=== PATIENT | female | born 1960 | race African-American/Black ===

== ENCOUNTER 2017-02-12 15:17 | Inpatient (IN) | payer MEDICARE, MEDICAID ==
[2017-02-12] VITALS (9 sets, daily range): BP systolic 85–140; BP diastolic 47–79
[~2017-02-12] VITALS: Ht 162.6 cm; Wt 63.5 kg
[~2017-02-12 15:17] MED LIST: CALCIUM CHLORIDE 1,000 MG/10 ML DISP.SYRIN IV ONE; DEXTROSE 50% 25 GM / 50ML DISP.SYRIN. IV ONE; EPINEPHrine SYRINGE 1 MG/10 ML SYRINGE ONE; SODIUM BICARB ADULT 8.4% 50 MEQ/50 ML DISP.SYRIN. ONE
[2017-02-12 15:46] LABS: BASO # 0.1 x10^3/uL (0.0-0.2); BASO % 0 % (0-3); EOS % 0 % (0-3); HEMATOCRIT 37.4 % (36.0-47.0); HEMOGLOBIN 12.3 g/dL (12.0-15.5); LYMPH # 1.1 x10^3/uL (1.0-4.8); LYMPH % 9 % (24-48); MEAN CORPUSCULAR HEMOGLOBIN 33 pg (25-35); MEAN CORPUSCULAR HGB CONC 33 g/dL (31-37); MEAN CORPUSCULAR VOLUME 102 fL (79-100); MONO % 3 % (0-9); NEUT % 88 % (31-73); PLATELET COUNT 212 x10^3/uL (140-400); RED BLOOD COUNT 3.69 x10^6/uL (3.50-5.40); RED CELL DISTRIBUTION WIDTH 13.1 % (11.5-14.5); WHITE BLOOD COUNT 12.7 x10^3/uL (4.0-11.0)
[2017-02-12] MEDS: IV NORMAL SALINE 1000ML BAG 1,000 ML IV SCH ×3 (15:50→19:31)
[2017-02-12 15:57] LABS: BILIRUBIN,URINE NEGATIVE (NEG); GLUCOSE,URINE NEGATIVE (NEG); NITRITE,URINE NEGATIVE (NEG); PH,URINE 5.5; PROTEIN,URINE 30 mg/dL (NEG-TRACE); UROBILINOGEN,URINE 0.2 mg/dL (0.2 mg/dL)
[2017-02-12] MEDS ORDERED: SODIUM BICARB ADULT 8.4% 50 MEQ/50 ML DISP.SYRIN. IV ONE ×2 (16:00→19:30)
[2017-02-12] MEDS ORDERED: DEXTROSE 50% 25 GM / 50ML DISP.SYRIN. IV ONE (16:00)
[2017-02-12] MEDS ORDERED: CALCIUM CHLORIDE 1,000 MG/10 ML DISP.SYRIN IV ONE (16:00)
[2017-02-12 16:03] LABS: BASE EXCESS COOX -15 mmol/L (-3-3); CARBON MONOXIDE 3.1 % (0.0-1.9); HCO3 COOX 16 mmol/L (21-28); METHEMOGLOBIN 0.5 % (0.0-1.9); OXYHEMOGLOBIN 95.3 %; PO2 COOX 493 mmHg (75-108); SAT O2 COOX 99 % (92-99); TOTAL HEMOGLOBIN 11.9 g/dL
--- NOTE | 2017-02-12 16:06 | RAD ---
Single view of the chest 02/12/2017 Indication: Hypoxia Comparison study: April 04, 2013 Findings: There is an endotracheal tube approximately 6 cm above the ernst. There is an enteric tube extending below the diaphragm. The lungs are hyperinflated. Relative apical lucency is noted. No pneumothorax or definitive effusion is seen. Findings could reflect COPD or other obstructive process. There is also diffuse interstitial coarsening, somewhat increased in the interim. Possible opacity infiltrates are seen in the right midlung however overlying EKG leads and other monitoring devices somewhat obscure visualization. Heart size appears to be grossly normal. An acute osseous change is not identified. Impression: 1. Hyperinflation 2. Diffuse interstitial thickening, increased in the interim. Findings could represent an atypical or interstitial pneumonia. Pulmonary edema could also be considered in the appropriate setting. 3. More focal patchy infiltrate in the right midlung appears to be present. Focal pneumonia is not excluded. Recommend radiographic follow-up to ensure resolution and exclude underlying lesion
[2017-02-12 16:08] LABS: BACTERIA,URINE MANY /HPF (0-FEW); SQUAMOUS EPITHELIAL CELL,UR OCC /LPF
[2017-02-12 16:12] LABS: ALBUMIN 2.9 g/dL (3.4-5.0); CALCIUM 9.6 mg/dL (8.5-10.1); DIRECT BILIRUBIN 0.3 mg/dL (0.0-0.2); GFR 69.9; TOTAL BILIRUBIN 0.8 mg/dL (0.2-1.0); TOTAL PROTEIN 6.9 g/dL (6.4-8.2)
[2017-02-12 16:15] LABS: FIO2 COOX 100; PCO2 COOX 62 mmHg (35-46); PH COOX 7.03 (7.35-7.45)
[2017-02-12 16:16] LABS: POTASSIUM 7.2 mmol/L (3.5-5.1)
[2017-02-12] MEDS ORDERED: FUROSEMIDE 40 MG/4 ML VIAL. IVP ONE (16:30)
--- NOTE | 2017-02-12 16:33 | EKG ---
[facility] [address] [place] [address] Test Date: 2017-02-12 Test Time: 15:39:58 Pat Name: LELAND ASKEW Department: Room: Gender: F [employer]: : [id number] Requested By: TRAM SMITH Order Number: [id number] Reading MD: Yoli Diez Measurements Intervals [place] Rate: 109 P: -103 AK: 234 QRS: -97 QRSD: 80 T: 78 QT: 294 QTc: 397 Interpretive Statements PROBABLE SINUS RHYTHM PROLONGED AK INTERVAL PROBABLE ST ELEVATION IN INFERIOR LEADS LOW LIMB LEAD VOLTAGE T ABNORMALITY IN HIGH LATERAL LEADS Electronically Signed On 02-15-2017 10:05:54 CDT by Yoli Diez
[2017-02-12 16:55] LABS: % BASOS 1 % (0-3)
[2017-02-12 16:56] LABS: PLT ESTIMATE ADEQUATE (ADEQUATE)
--- NOTE | 2017-02-12 16:56 | PHYS DOC ---
Adult General Chief Complaint Chief Complaint: CPR/FULL ARREST HPI HPI Patient is a 56 year old female with a history of schizophrenia and anorexia brought in by EMS after a code. The patient was found down in her room at the [place] [facility]. Last known well was not known. There is no other history available. Per EMS, she was found in asystole. ACLS was done with good CPR and she did have return of pulses at one time but had lost pulses on arrival to the ED. Review of Systems Review of Systems Unable to obtain review of systems due to the patient's critical condition Current Medications Current Medications Current Medications Medications (Trade) Dose Ordered Sig/Bryce Start Time Stop Time Status Last Admin Dose Admin Calcium Chloride 1,000 mg 1X ONCE 02/12/17 16:00 02/12/17 16:35 DC 02/12/17 15:35 1,000 MG Dextrose (Dextrose 50%-Water Syringe) 25 gm 1X ONCE 02/12/17 16:00 02/12/17 16:35 DC 02/12/17 15:33 25 GM Furosemide (Lasix) 40 mg 1X ONCE 02/12/17 16:30 02/12/17 16:35 DC 02/12/17 16:42 40 MG Sodium Bicarbonate 50 meq 1X ONCE 02/12/17 16:00 02/12/17 16:35 DC 02/12/17 15:35 50 MEQ Allergies Allergies Allergies Coded Allergies Type Severity Reaction Last Updated Verified divalproex sodium Allergy Intermediate Unknown 02/12/17 Yes Physical Exam Physical Exam Constitutional: GCS 3, being mechanically ventilated, no evidence of trauma noted HENT: Normocephalic, atraumatic, bilateral external ears normal, oropharynx with a large amount of emesis, nose normal. [] Eyes: conjunctiva normal, no discharge. [] Neck: Trachea midline, no masses Cardiovascular:Heart rate regular rhythm, no murmur [] Lungs & Thorax: Bilateral breath sounds present with bagging Abdomen: Moderately distended, no pulsatile mass Skin: Warm, dry, no erythema, no rash. [] Extremities: No tenderness, no cyanosis, no clubbing, ROM intact, no edema. [] Neurologic: GCS 3 on arrival Current Patient Data Vital Signs Vital Signs Date Time Temp Pulse Resp B/P (MAP) Pulse Ox O2 Delivery O2 Flow Rate FiO2 02/12/17 16:38 87 25 80/43 (55) 99 02/12/17 15:45 Ventilator Lab Values Laboratory Tests Test 02/12/17 15:24 02/12/17 15:45 02/12/17 15:49 02/12/17 15:50 White Blood Count 12.7 x10^3/uL (4.0-11.0) H Red Blood Count 3.69 x10^6/uL (3.50-5.40) Hemoglobin 12.3 g/dL (12.0-15.5) Hematocrit 37.4 % (36.0-47.0) Mean Corpuscular Volume 102 fL (79-100) H Mean Corpuscular Hemoglobin 33 pg (25-35) Mean Corpuscular Hemoglobin Concent 33 g/dL (31-37) Red Cell Distribution Width 13.1 % (11.5-14.5) Platelet Count 212 x10^3/uL (140-400) Neutrophils (%) (Auto) 88 % (31-73) H Lymphocytes (%) (Auto) 9 % (24-48) L Monocytes (%) (Auto) 3 % (0-9) Eosinophils (%) (Auto) 0 % (0-3) Basophils (%) (Auto) 0 % (0-3) Neutrophils # (Auto) 11.1 x10^3uL (1.8-7.7) H Lymphocytes # (Auto) 1.1 x10^3/uL (1.0-4.8) Monocytes # (Auto) 0.4 x10^3/uL (0.0-1.1) Eosinophils # (Auto) 0.0 x10^3/uL (0.0-0.7) Basophils # (Auto) 0.1 x10^3/uL (0.0-0.2) Segmented Neutrophils % 37 % (35-66) Band Neutrophils % 44 % (0-9) H Lymphocytes % 4 % (24-48) L Atypical Lymphocytes % (Manual) 5 % (0-0) H Monocytes % 5 % (0-10) Basophils % 1 % (0-3) Metamyelocytes % 4 % (0-0) H Toxic Granulation Present Dohle Bodies Present Platelet Estimate Adequate (ADEQUATE) Large Platelets Present Polychromasia Slight Poikilocytosis Slight Anisocytosis Slight Macrocytosis Slight Target Cells Tear Drop Cells Occ Ovalocytes Occ Crenated Cell Present Sodium Level 117 mmol/L (136-145) *L Potassium Level 7.2 mmol/L (3.5-5.1) *H Chloride Level 81 mmol/L (98-107) L Carbon Dioxide Level 23 mmol/L (21-32) Anion Gap 13 (6-14) Blood Urea Nitrogen 15 mg/dL (7-20) Creatinine 1.0 mg/dL (0.6-1.0) Estimated GFR (Cockcroft-Gault) 69.9 Glucose Level 20 mg/dL (70-99) *L Lactic Acid Level 12.9 mmol/L (0.4-2.0) *H Calcium Level 9.6 mg/dL (8.5-10.1) Total Bilirubin 0.8 mg/dL (0.2-1.0) Direct Bilirubin 0.3 mg/dL (0.0-0.2) H Aspartate Amino Transferase (AST) 554 U/L (15-37) H Alanine Aminotransferase (ALT) 305 U/L (14-59) H Alkaline Phosphatase 95 U/L (46-116) POC Troponin I 0.78 ng/ml (<0.08) Troponin I Quantitative 1.352 ng/mL (0.000-0.055) MI-Zkf-S-Type Natriuretic Peptide 89878 pg/mL (0-124) H Total Protein 6.9 g/dL (6.4-8.2) Albumin 2.9 g/dL (3.4-5.0) L Lipase 43 U/L (73-393) L Glucose (Fingerstick) 209 mg/dL (70-99) H Urine Collection Type Unknown Urine Color Yellow Urine Clarity Cloudy Urine pH 5.5 Urine Specific [place] 1.010 Urine Protein 30 mg/dL (NEG-TRACE) Urine Glucose (UA) Negative mg/dL (NEG) Urine Ketones (Stick) Negative mg/dL (NEG) Urine Blood Moderate (NEG) Urine Nitrite Negative (NEG) Urine Bilirubin Negative (NEG) Urine Urobilinogen Dipstick 0.2 mg/dL (0.2 mg/dL) Urine Leukocyte Esterase Trace (NEG) Urine RBC 1-2 /HPF (0-2) Urine WBC 1-4 /HPF (0-4) Urine Squamous Epithelial Cells Occ /LPF Urine Bacteria Many /HPF (0-FEW) Urine Hyaline Casts Occasional /HPF Urine Opiates Screen Neg (NEG) Urine Methadone Screen Neg (NEG) Urine Barbiturates Neg (NEG) Urine Phencyclidine Screen Neg (NEG) Urine Amphetamine/Methamphetamine Neg (NEG) Urine Benzodiazepines Screen Neg (NEG) Urine Cocaine Screen Neg (NEG) Urine Cannabinoids Screen Neg (NEG) Urine Ethyl Alcohol Neg (NEG) O2 Saturation 99 % (92-99) Arterial Blood pH 7.03 (7.35-7.45) *L Arterial Blood pCO2 at Patient Temp 62 mmHg (35-46) *H Arterial Blood pO2 at Patient Temp 493 mmHg (75-108) H Arterial Blood HCO3 16 mmol/L (21-28) L Arterial Blood Base Excess -15 mmol/L (-3-3) L Oxyhemoglobin 95.3 % Methemoglobin 0.5 % (0.0-1.9) Carbon Monoxide, Quantitative 3.1 % (0.0-1.9) H FiO2 100 Laboratory Tests 02/12/17 15:24 Laboratory Tests 02/12/17 15:24 EKG EKG 12-lead EKG #1 read by me. Sinus tachycardia. Heart rate 109. Abnormal, wide QRS , EKG is difficult to read. Could possibly be a STEMI pattern or could be hyperkalemia or could be an abnormal interventricular conduction delay pattern. 1539 12-lead EKG #2 read by me. Sinus rhythm. Heart rate 89. The QRS widening is improved. There are no peaked T waves. There are no acute ST or T wave changes indicative of ischemia or infarction. No STEMI. 1638[] Radiology/Procedures Radiology/Procedures One view portable chest x-ray read by the radiologist. ET tube is 6 cm above the ernst with good aeration of both lungs and no acute pulmonary findings.[] Procedure: Intubation by me Using a #3 curved blade, the patient's cords were visualized and she was intubated with a 7.0 ET tube. ET tube was visualized going through the cords, positive color change on the end-tidal CO2 monitor, good bilateral equal breath sounds after intubation, improvement in the patient's color, and pulse oximetry in the high 90s to 100% range confirmed intubation. Course & Med Decision Making Course & Med Decision Making Pertinent Labs and Imaging studies reviewed. (See chart for details) 56-year-old female who we do not have any records on presents in a full CODE BLUE by EMS. She presented with a intraosseous access, a LMA airway, we obtained IV access and switched her to endotracheal intubation. Along with these interventions, the patient did return spontaneous circulation and kept her pulse. Her color improved. She had a lot of emesis and probably aspirated. An orogastric tube was placed and bloody gastric contents were suctioned, although it does not appear to be jessica blood, it is very liquid but appears to have dark blood in it. Initial report per EMS was of a prehospital Accu-Chek in the 140 range. However, i-STAT labs immediately on arrival were concerning for potassium 6.9 and glucose less than 20. She was treated with D50, bicarbonate, and calcium. Her hyperkalemia and her hypotension were treated with normal saline boluses. Labs were consistent with these findings of hyperkalemia, hyponatremia, and hypoglycemia. Based on the patient's med list, diagnoses, and a relatively normal creatinine of 1.3, I cannot explain these lab abnormalities. The potassium might be from her prolonged time of coding, although that would not explain her hyponatremia and her hypoglycemia. I do believe the Shana meal was true because her EKG was markedly abnormal and it did normalize after treating. Patient did have some movement of her extremities and some spontaneous breaths and swallowing but she did not have improvement of her mentation after return of spontaneous circulation, so we discussed hypothermia protocol for this patient. It was initiated by nursing staff. Patient actually did present with a rectal temp of 95 which actually had gone down to 90 after her code in the ED. I 'm not sure why she was so hypothermic. RT managed the patient's vent settings and her oxygenation was never an issue. She was markedly acidotic which was mostly metabolic. Lactic acid is elevated. I attribute this to her lengthy code. She was treated with IV fluids and had very little urine output while in the ED. I discussed the case with Dr. Lockhart, hospitalist. She will admit the patient. She came to the ED to see the patient. I wrote bridge orders. Critical care time 60 minutes exclusive of separately billable procedures [] Dragon Disclaimer Dragon Disclaimer This electronic medical record was generated, in whole or in part, using a voice recognition dictation system. Departure Departure Impression: Primary Impression: Cardiac arrest Additional Impressions: Hypoglycemia Hyperkalemia Hyponatremia Elevated troponin Disposition: 09 ADMITTED INPATIENT Admitting Physician: Kameron Lockhart Condition: CRITICAL Referrals: UNKNOWN PCP NAME (PCP) Problem Qualifiers MATEO ADAMES MD Feb 12, 2017 16:56
[2017-02-12 16:57] LABS: ANISOCYTOSIS SLIGHT; POIKILOCYTOSIS SLIGHT; POLYCHROMASIA SLIGHT
[2017-02-12 16:58] LABS: OVALOCYTES OCC; TEAR DROP CELLS OCC; TOXIC GRANULATION PRESENT
[2017-02-12] MEDS ORDERED: VECURONIUM BOLUS 10 MG VIAL. IV PRN (17:00)
[2017-02-12] MEDS ORDERED: PROPOFOL 100 ML IV PRN (17:00)
[2017-02-12] MEDS ORDERED: MEPERIDINE PF 25 MG/ML VIAL. IV PRN (17:00)
[2017-02-12] MEDS ORDERED: 0.9 % SODIUM CHLORIDE 10 ML DISP.SYRIN. IV PRN (17:00)
[2017-02-12] MEDS ORDERED: fentaNYL PF VIAL 100 MCG/2 ML VIAL IV PRN (17:00)
[2017-02-12 17:01] LABS: CRENATED RBC PRESENT
[2017-02-12] MEDS ORDERED: IV NORMAL SALINE 500ML BAG 500 ML IV ONE ×2 (17:15)
[2017-02-12] MEDS ORDERED: FAMOTIDINE 20 MG TABLET. PO ONE (17:30)
[2017-02-12 17:33] LABS: CALCIUM 8.9 mg/dL (8.5-10.1); CREATININE 1.2 mg/dL (0.6-1.0); GFR 56.6; POTASSIUM 5.7 mmol/L (3.5-5.1)
--- NOTE | 2017-02-12 17:41 | PDOC1 ---
History and Physical Date of Admission Date of Admission 02/12/17 Identification/Chief Complaint Chief Complaint cardiac arrest Problems: Source Source: Chart review History of Present Illness History of Present Illness 56yo F,with h/o COPD, anorexia, schizophreniA, was sent from SNF for cardiac arrest. Pt is currently intubated, all history recived from ERP who also has very limited info. per ERP, last time SNF saw pt ok was about noon time, then possible 2 hours later, found pt unresponsive. EMS was called , CPR started, was found asystole, epi was given x3, code possible lasted 20min? but DR. Cleray also said when pt arrived here about 3pm, pt was still on CPR. Pt eventually got pulse back, moves ext a little bit, not woke up. was intubated now. ERP mentioned pt has some secretion through ET tube also some dark emesis from NGT. She has horrible labs, LA 12, Na 117, K 7, Glucose 20 (no DM), T rectum 90. when i saw pt in the ER, BP was 70s. Past Medical History Past Medical History copd Past Surgical History Past Surgical History cannot obtained Social History Smoke: No ALCOHOL: none Drugs: None Current Problem List Problem List Problems Medical Problems: (1) Cardiac arrest Status: Acute (2) Elevated troponin Status: Acute (3) Hyperkalemia Status: Acute (4) Hypoglycemia Status: Acute (5) Hyponatremia Status: Acute Current Medications Current Medications Current Medications Medications (Trade) Dose Ordered Sig/Bryce Start Time Stop Time Status Last Admin Dose Admin Acetaminophen (Acetaminophen Supp) 650 mg PRN Q6HRS PRN 02/13/17 17:00 Acetaminophen (Tylenol) 650 mg PRN Q6HRS PRN 02/13/17 17:00 Aspirin (Aspirin) 300 mg DAILY 02/13/17 09:00 Calcium Chloride 1,000 mg 1X ONCE 02/12/17 16:00 02/12/17 16:35 DC 02/12/17 15:35 1,000 MG Dextrose (Dextrose 50%-Water Syringe) 25 gm 1X ONCE 02/12/17 16:00 02/12/17 16:35 DC 02/12/17 15:33 25 GM Famotidine (Pepcid) 20 mg BID 02/12/17 21:00 Fentanyl Citrate 30 ml @ 2.5 mls/hr CONT PRN PRN 02/12/17 17:00 Fentanyl Citrate (Fentanyl 2ml Vial) 25 mcg PRN Q30MIN PRN 02/12/17 17:00 Furosemide (Lasix) 40 mg 1X ONCE 02/12/17 16:30 02/12/17 16:35 DC 02/12/17 16:42 40 MG Info 1 ea DAILY PRN 02/14/17 17:00 Lorazepam (Ativan) 1 mg PRN Q30MIN PRN 02/12/17 17:00 Meperidine HCl (Demerol) 12.5 mg PRN Q30MIN PRN 02/12/17 17:00 Multi-Ingred Cream/Lotion/Oil/ Oint (Artificial Tears Eye Oint) 1 silvestre PRN Q6HRS PRN 02/12/17 17:00 Propofol 100 ml @ 0 mls/hr CONT PRN 02/12/17 17:00 Sodium Bicarbonate 50 meq 1X ONCE 02/12/17 16:00 02/12/17 16:35 DC 02/12/17 15:35 50 MEQ Sodium Chloride 500 ml @ 500 mls/hr 1X ONCE 02/12/17 17:15 02/12/17 18:14 02/12/17 16:50 500 MLS/HR Sodium Chloride (Normal Saline Flush) 3 ml QSHIFT PRN 02/12/17 17:00 Vecuronium [place] (Norcuron Bolus) DOSE AT 0.1 mg/kg PRN Q30MIN PRN 02/12/17 17:00 Allergies Allergies Allergies Coded Allergies Type Severity Reaction Last Updated Verified divalproex sodium Allergy Intermediate Unknown 02/12/17 Yes ROS Review of System CONSTITUTIONAL: No fever or chills EYES: No recent changes SKIN: No rash or itching CARDIOVASCULAR: No chest pain, syncope, palpitations, or edema RESPIRATORY: No SOB or cough GASTROINTESTINAL: No nausea, vomiting or abdominal pain NEUROLOGICAL: No headaches or weakness ENDOCRINE: No cold or heat intolerance GENITOURINARY: No urgency or frequency of urination MUSCULOSKELETAL: No back pain or joint pain LYMPHATICS: No enlarged lymph nodes PSYCHIATRIC: No anxiety or depression Physical Exam Physical Exam GEN.: intubated, unresponsive HEENT: Head is normocephalic, atraumatic NECK: Supple. LUNGS: bl wheezing HEART: RRR, S1, S2 present. Peripheral pulses intact ABDOMEN: Soft, nontender. Positive bowel sounds. middle abd has a 10cm sx scar. EXTREMITIES: Without any cyanosis. NEUROLOGIC: Normal speech, normal tone PSYCHIATRIC: Normal affect, normal mood. SKIN: No ulcerations Vitals Vitals Vital Signs Date Time Temp Pulse Resp B/P (MAP) Pulse Ox O2 Delivery O2 Flow Rate FiO2 02/12/17 15:45 100 Ventilator Labs Labs Laboratory Tests Test 02/12/17 15:24 02/12/17 15:45 02/12/17 15:49 02/12/17 15:50 White Blood Count 12.7 x10^3/uL (4.0-11.0) Red Blood Count 3.69 x10^6/uL (3.50-5.40) Hemoglobin 12.3 g/dL (12.0-15.5) Hematocrit 37.4 % (36.0-47.0) Mean Corpuscular Volume 102 fL (79-100) Mean Corpuscular Hemoglobin 33 pg (25-35) Mean Corpuscular Hemoglobin Concent 33 g/dL (31-37) Red Cell Distribution Width 13.1 % (11.5-14.5) Platelet Count 212 x10^3/uL (140-400) Neutrophils (%) (Auto) 88 % (31-73) Lymphocytes (%) (Auto) 9 % (24-48) Monocytes (%) (Auto) 3 % (0-9) Eosinophils (%) (Auto) 0 % (0-3) Basophils (%) (Auto) 0 % (0-3) Neutrophils # (Auto) 11.1 x10^3uL (1.8-7.7) Lymphocytes # (Auto) 1.1 x10^3/uL (1.0-4.8) Monocytes # (Auto) 0.4 x10^3/uL (0.0-1.1) Eosinophils # (Auto) 0.0 x10^3/uL (0.0-0.7) Basophils # (Auto) 0.1 x10^3/uL (0.0-0.2) Sodium Level 117 mmol/L (136-145) Potassium Level 7.2 mmol/L (3.5-5.1) Chloride Level 81 mmol/L (98-107) Carbon Dioxide Level 23 mmol/L (21-32) Anion Gap 13 (6-14) Blood Urea Nitrogen 15 mg/dL (7-20) Creatinine 1.0 mg/dL (0.6-1.0) Estimated GFR (Cockcroft-Gault) 69.9 Glucose Level 20 mg/dL (70-99) Lactic Acid Level 12.9 mmol/L (0.4-2.0) Calcium Level 9.6 mg/dL (8.5-10.1) Total Bilirubin 0.8 mg/dL (0.2-1.0) Direct Bilirubin 0.3 mg/dL (0.0-0.2) Aspartate Amino Transf (AST/SGOT) 554 U/L (15-37) Alanine Aminotransferase (ALT/SGPT) 305 U/L (14-59) Alkaline Phosphatase 95 U/L (46-116) Bedside Troponin I 0.78 ng/ml (<0.08) Troponin I Quantitative 1.352 ng/mL (0.000-0.055) UY-Hlv-S-Type Natriuretic Peptide 60644 pg/mL (0-124) Total Protein 6.9 g/dL (6.4-8.2) Albumin 2.9 g/dL (3.4-5.0) Lipase 43 U/L (73-393) Glucose (Fingerstick) 209 mg/dL (70-99) Urine Collection Type Unknown Urine Color Yellow Urine Clarity Cloudy Urine pH 5.5 Urine Specific [place] 1.010 Urine Protein 30 mg/dL (NEG-TRACE) Urine Glucose (UA) Negative mg/dL (NEG) Urine Ketones (Stick) Negative mg/dL (NEG) Urine Blood Moderate (NEG) Urine Nitrite Negative (NEG) Urine Bilirubin Negative (NEG) Urine Urobilinogen Dipstick 0.2 mg/dL (0.2 mg/dL) Urine Leukocyte Esterase Trace (NEG) Urine RBC 1-2 /HPF (0-2) Urine WBC 1-4 /HPF (0-4) Urine Squamous Epithelial Cells Occ /LPF Urine Bacteria Many /HPF (0-FEW) Urine Hyaline Casts Occasional /HPF O2 Saturation 99 % (92-99) Arterial Blood pH 7.03 (7.35-7.45) Arterial Blood pCO2 at Patient Temp 62 mmHg (35-46) Arterial Blood pO2 at Patient Temp 493 mmHg (75-108) Arterial Blood HCO3 16 mmol/L (21-28) Arterial Blood Base Excess -15 mmol/L (-3-3) Oxyhemoglobin 95.3 % Methemoglobin 0.5 % (0.0-1.9) Carbon Monoxide, Quantitative 3.1 % (0.0-1.9) FiO2 100 Laboratory Tests Test 02/12/17 15:24 02/12/17 15:45 02/12/17 15:49 02/12/17 15:50 White Blood Count 12.7 x10^3/uL (4.0-11.0) Red Blood Count 3.69 x10^6/uL (3.50-5.40) Hemoglobin 12.3 g/dL (12.0-15.5) Hematocrit 37.4 % (36.0-47.0) Mean Corpuscular Volume 102 fL (79-100) Mean Corpuscular Hemoglobin 33 pg (25-35) Mean Corpuscular Hemoglobin Concent 33 g/dL (31-37) Red Cell Distribution Width 13.1 % (11.5-14.5) Platelet Count 212 x10^3/uL (140-400) Neutrophils (%) (Auto) 88 % (31-73) Lymphocytes (%) (Auto) 9 % (24-48) Monocytes (%) (Auto) 3 % (0-9) Eosinophils (%) (Auto) 0 % (0-3) Basophils (%) (Auto) 0 % (0-3) Neutrophils # (Auto) 11.1 x10^3uL (1.8-7.7) Lymphocytes # (Auto) 1.1 x10^3/uL (1.0-4.8) Monocytes # (Auto) 0.4 x10^3/uL (0.0-1.1) Eosinophils # (Auto) 0.0 x10^3/uL (0.0-0.7) Basophils # (Auto) 0.1 x10^3/uL (0.0-0.2) Sodium Level 117 mmol/L (136-145) Potassium Level 7.2 mmol/L (3.5-5.1) Chloride Level 81 mmol/L (98-107) Carbon Dioxide Level 23 mmol/L (21-32) Anion Gap 13 (6-14) Blood Urea Nitrogen 15 mg/dL (7-20) Creatinine 1.0 mg/dL (0.6-1.0) Estimated GFR (Cockcroft-Gault) 69.9 Glucose Level 20 mg/dL (70-99) Lactic Acid Level 12.9 mmol/L (0.4-2.0) Calcium Level 9.6 mg/dL (8.5-10.1) Total Bilirubin 0.8 mg/dL (0.2-1.0) Direct Bilirubin 0.3 mg/dL (0.0-0.2) Aspartate Amino Transf (AST/SGOT) 554 U/L (15-37) Alanine Aminotransferase (ALT/SGPT) 305 U/L (14-59) Alkaline Phosphatase 95 U/L (46-116) Bedside Troponin I 0.78 ng/ml (<0.08) Troponin I Quantitative 1.352 ng/mL (0.000-0.055) EN-Pai-R-Type Natriuretic Peptide 86741 pg/mL (0-124) Total Protein 6.9 g/dL (6.4-8.2) Albumin 2.9 g/dL (3.4-5.0) Lipase 43 U/L (73-393) Glucose (Fingerstick) 209 mg/dL (70-99) Urine Collection Type Unknown Urine Color Yellow Urine Clarity Cloudy Urine pH 5.5 Urine Specific [place] 1.010 Urine Protein 30 mg/dL (NEG-TRACE) Urine Glucose (UA) Negative mg/dL (NEG) Urine Ketones (Stick) Negative mg/dL (NEG) Urine Blood Moderate (NEG) Urine Nitrite Negative (NEG) Urine Bilirubin Negative (NEG) Urine Urobilinogen Dipstick 0.2 mg/dL (0.2 mg/dL) Urine Leukocyte Esterase Trace (NEG) Urine RBC 1-2 /HPF (0-2) Urine WBC 1-4 /HPF (0-4) Urine Squamous Epithelial Cells Occ /LPF Urine Bacteria Many /HPF (0-FEW) Urine Hyaline Casts Occasional /HPF O2 Saturation 99 % (92-99) Arterial Blood pH 7.03 (7.35-7.45) Arterial Blood pCO2 at Patient Temp 62 mmHg (35-46) Arterial Blood pO2 at Patient Temp 493 mmHg (75-108) Arterial Blood HCO3 16 mmol/L (21-28) Arterial Blood Base Excess -15 mmol/L (-3-3) Oxyhemoglobin 95.3 % Methemoglobin 0.5 % (0.0-1.9) Carbon Monoxide, Quantitative 3.1 % (0.0-1.9) FiO2 100 VTE Prophylaxis Ordered VTE Prophylaxis Devices: Yes VTE Pharmacological Prophylaxi: No Assessment/Plan Assessment/Plan cardiac arrest, not clear for how long, asystole Hypoglycemia Hyperkalemia Hyponatremia Elevated troponin with cardiac arrest acute hypoxic and hypercapnic resp failure with cardiac arrest COPD from snf anorexia schizophrenia lactate acidosis elevated transminitis mild malnutrition AMS, metabolic encephalopathy hypothermia leukocytosis, likely reactive + UA plan: ICU care, monitor urine output, keep >0.5cc/h monitor MAP, keep >65, use pressor if needed renal, pulm, card consult cycle CE, Echo, tsh, cortisol .add solumedrol 100mg tid for now labs q4h got some meds for high K in ER, repeated labs pending ivf npo gi ppx some gib, also not sure how long cardiac arrest, not a good candidate for hypothermia protocol try to get family very poor prognosis critical care 40min HARRISON ALEXANDER MD Feb 12, 2017 17:41
[2017-02-12 17:43] LABS: PCO2 ABG 59 mmHg (35-46); PH ABG 7.11 (7.35-7.45)
[2017-02-12 17:44] LABS: FIO2 ABG 60; HCO3 ABG 18 mmol/L (21-28); PO2 ABG 199 mmHg (75-108); SAT O2 ABG 99 % (92-99)
[2017-02-12] MEDS ORDERED: IV NORMAL SALINE 1000ML BAG 1,000 ML IV ONE (18:15)
[2017-02-12 18:45] LABS: BARBITURATES NEG (NEG); BENZODIAZEPINES NEG (NEG); CANNABINOIDS NEG (NEG); COCAINE NEG (NEG); METHADONE NEG (NEG); OPIATES NEG (NEG); PHENCYCLIDINE NEG (NEG)
[2017-02-12] MEDS ORDERED: PIP/TAZO PER PHARMACY MC PRN (19:15)
[2017-02-12] MEDS ORDERED: NOREPINEPHRIN PREMIX 250 ML IV ONE (19:25)
[2017-02-12] MEDS: NOREPINEPHRIN PREMIX 250 ML IV PRN (19:30)
[2017-02-12] MEDS ORDERED: VANCOMYCIN 1 GM in IV NORMAL SALINE 250ML 250 ML IV ONE (19:30)
[2017-02-12 19:46] LABS: HEMATOCRIT 33.5 % (36.0-47.0); HEMOGLOBIN 11.8 g/dL (12.0-15.5); RED BLOOD COUNT 3.46 x10^6/uL (3.50-5.40); RED CELL DISTRIBUTION WIDTH 13.9 % (11.5-14.5); WHITE BLOOD COUNT 14.8 x10^3/uL (4.0-11.0)
[2017-02-12] MEDS: ACETAMINOPHEN 650 MG/20.3 ML SOLUTION. NG SCH ×2 (19:57→23:52)
[2017-02-12] MEDS: PIPERACILLIN/TAZOBACTAM 3.375 GM in IV NORMAL SALINE 50ML 50 ML IV SCH ×2 (19:58→23:52)
[2017-02-12] MEDS: methylPREDNISolone SOD SUCC PF 40 MG/ML VIAL. IV SCH (19:59)
[2017-02-12 20:02] LABS: MAGNESIUM 2.1 mg/dL (1.8-2.4); PHOSPHORUS 6.7 mg/dL (2.6-4.7)
[2017-02-12 20:09] LABS: INR 2.5 (0.8-1.1); PROTHROMBIN TIME PATIENT 25.3 SEC (11.7-14.0)
[2017-02-12] MEDS: MIDAZOLAM PREMIX 100 ML IV PRN (20:20)
[2017-02-12] MEDS: VANCOMYCIN PER PHARMACY MC PRN (20:23)
[2017-02-12] MEDS ORDERED: MULT1TAB52 PO (21:02)
[2017-02-12] MEDS ORDERED: IBUP-1027 PO (21:02)
[2017-02-12] MEDS ORDERED: IPRA3AMP NEB ×2 (21:02)
[2017-02-12] MEDS ORDERED: LURA20TA PO (21:02)
[2017-02-12] MEDS ORDERED: ACET325C PO (21:02)
[2017-02-12] MEDS ORDERED: CHOL2000 PO (21:02)
[2017-02-12] MEDS ORDERED: ACET325T9 PO (21:02)
[2017-02-12] MEDS ORDERED: OMEG1CAP2 PO (21:02)
[2017-02-12] MEDS ORDERED: CALC500T PO (21:02)
[2017-02-12] MEDS ORDERED: OXYB10TA PO (21:02)
[2017-02-12] MEDS ORDERED: LORA0.5T PO (21:02)
[2017-02-12] MEDS ORDERED: LURA60TA PO (21:02)
[2017-02-12] MEDS ORDERED: GABA-587 PO (21:02)
[2017-02-12] MEDS ORDERED: MIRT15TA PO (21:02)
[2017-02-12] MEDS ORDERED: LORA1TAB PO ×2 (21:02)
[2017-02-12] MEDS ORDERED: NICO4GUM42 BC (21:02)
[2017-02-12] MEDS ORDERED: [UNRECOGNIZED DRUG - CODE] MM (21:02)
[2017-02-12] MEDS ORDERED: MAGN400O7 PO (21:02)
[2017-02-12] MEDS ORDERED: FLUT1DIS IH (21:02)
[2017-02-12 21:40] LABS: CALCIUM 8.3 mg/dL (8.5-10.1); POTASSIUM 5.7 mmol/L (3.5-5.1)
[2017-02-12 21:46] LABS: CREATININE 1.2 mg/dL (0.6-1.0); GFR 56.6
--- NOTE | 2017-02-12 22:23 | RAD ---
CT HEAD INDICATION: status post code, intubated, no priors COMPARISON: None Available. TECHNIQUE: 5 mm contiguous axial images were obtained from the skull base to the vertex. Exposure: One or more of the following individualized dose reduction techniques were utilized for this examination: 1. Automated exposure control 2. Adjustment of the mA and/or kV according to patient size 3. Use of iterative reconstruction technique FINDINGS: Mild bilateral periventricular white matter hypodensities likely chronic small vessel ischemic disease. No evidence of acute intracranial hemorrhage. No extra-axial fluid collections. No mass effect or midline shift. Ventricular size is appropriate. Basal cisterns are patent. No fractures identified.Brumfield-white differentiation is preserved.Globes and orbits are within normal limits. Moderate mucosal thickening with air-fluid levels identified in the bilateral ethmoidal sinuses and sphenoid sinuses. There is moderate mucosal thickening identified in the bilateral maxillary sinuses likely sinus disease. IMPRESSION: 1. No acute intracranial findings. 2. Sinus disease. Electronically signed by: Fitz Escalona MD (02/12/2017 10:19 PM) [facility]
[2017-02-13] VITALS (17 sets, daily range): BP systolic 98–166; BP diastolic 56–90
[2017-02-13 00:20] LABS: CALCIUM 8.3 mg/dL (8.5-10.1); CREATININE 1.2 mg/dL (0.6-1.0); GFR 56.6; POTASSIUM 4.3 mmol/L (3.5-5.1)
[2017-02-13 00:25] LABS: MAGNESIUM 1.8 mg/dL (1.8-2.4); PHOSPHORUS 3.7 mg/dL (2.6-4.7)
--- NOTE | 2017-02-13 01:52 | ACF ---
Admission Forms Criteria INTENSIVE CARE UNIT ADMISSION Intensive Care Admission Guidelines ( [place]/check or initial the applicable condition/criteria) Admission may be indicated when need is demonstrated by 1 or more of the following:(1)(2)(3)(4)(5)(6)(7)(8)(9)(10)(11) I. Vital sign abnormalities, including 1 or more of the following: a) Systolic arterial pressure less than 90 mm Hg, or 20 mm Hg below patient's usual pressure in adult or child 10 years or older b) Systolic arterial blood pressure less than 70 mm Hg in infant (1 month to 1 year of age), or less than the sum of 70 mm Hg plus twice the patient's age in child 2 to 10 years of age(12) c) Diastolic arterial pressure greater than 120 mm Hg d) Mean arterial pressure less than 70 mm Hg in adult[A] e) Mean arterial pressure less than the sum of 40 mm Hg plus 1.5 times patient' s age in child or adolescent[A](12) f) Pulse less than 40 or greater than 140 beats per minute in adult, or in adolescent 16 years or older g) Pulse less than 90 or greater than 160 beats per minute in infant younger than 1 year(7) h) Pulse less than 70 or greater than 150 beats per minute in child 1 to 15 years of age(7) i) Respiratory rate greater than 35 or less than 8 breaths per minute in adult II. Laboratory findings (new), including 1 or more of the following(13)(14)(15)( 16)(17)(18)(19)(20): a) Saturation of arterial oxygen less than 90% or partial pressure of oxygen less than 60 mm Hg (8.0 kPa) despite oxygen supplementation b) Rising partial pressure of carbon dioxide with acute or uncompensated respiratory acidosis c) Arterial pH less than 7.2 or greater than 7.65 d) Serum sodium less than 110 mEq/L (mmol/L) or greater than 160 mEq/L (mmol/L) e) Serum sodium less than 125 mEq/L (mmol/L) with Altered mental status, seizure , or respiratory arrest f) Serum sodium more than 145 mEq/L (mmol/L) with Altered mental status, seizure , or severe dehydration requiring large volume fluid resuscitation g) Serum potassium less than 2 mEq/L (mmol/L) or greater than 7 mEq/L (mmol/L) h) Serum potassium less than 2.5 mEq/L (mmol/L) with severe clinical or electrocardiogram manifestations (eg, paralysis, cardiac arrhythmia, delayed depolarization, flat T waves, or U waves) i) Serum potassium greater than 6 mEq/L (mmol/L) with electrocardiogram changes of hyperkalemia (eg, peaked T waves, widened QRS, cardiac arrhythmia) j) Serum calcium greater than 14 mg/dL (3.5 mmol/L)(19) k) Serum calcium greater than 12 mg/dL (3.0 mmol/L) with Altered mental status, severe volume depletion requiring large volume IV fluid resuscitation, Hypotension, significant arrhythmia, heart block, or digitalis toxicity(19) l) Serum phosphorus less than 1 mg/dL (0.32 mmol/L) m) Toxic drug level or poisoning causing or likely to cause neurologic abnormalities or Hemodynamic instability n) Less severe laboratory abnormalities contributing to 1 or more of the following: i. Seizure ii. Altered mental status iii. Muscle weakness or severe spasms iv. Arrhythmias v. Hemodynamic instability vi. Other significant clinical manifestations III. Electrocardiogram (or cardiac monitoring) findings, including 1 or more of the following: a) Inherently unstable or life-threatening arrhythmia (eg, sustained ventricular tachycardia, ventricular fibrillation, asystole) b) Arrhythmia causing Hypotension (eg, Bradycardia, Tachycardia ) c) Complete heart block causing Hypotension d) Other findings indicative of need for intensive care (eg, acute cardiac ischemia, myocardial infarction) IV. Physical findings, including 1 or more of the following: a) Threatened airway b) Altered mental status that is severe or persistent c) Repeated or prolonged seizures d) New-onset anuria (urine output less than 0.1 mL/kg/hour over 4 hours) e) Cyanosis (new) f) Cardiac tamponade g) Status post respiratory or cardiac arrest h) Severe montgomery (eg, partial thickness montgomery over more than 10% of body surface , third-degree montgomery) i) Findings consistent with abdominal emergency (eg, peritoneal signs) V. Imaging findings, such as dissecting aneurysm or ruptured viscus . Specific intervention or monitoring needed, as indicated by 1 or more of the following: a) New need for assisted ventilation, invasive or noninvasive(20) b) New need for intubation (eg, to protect airway) c) New tracheostomy (less than 48 hours old) d) Hourly vital signs or neurologic checks e) Pulmonary artery line monitoring needed f) Continuous arterial line monitoring needed g) Continuous IV vasoactive drugs h) Continuous IV antiarrhythmics i) Large volume IV fluid resuscitation (eg, greater than 6 L per day) j) Large or rapid transfusion needs (eg, more than 6 units within 24 hours) k) High-risk IV treatment, such as thrombolysis, hypertonic saline, or mannitol infusion l) Rapid desensitization for high-risk hypersensitivity reaction to required medication (eg, penicillin)(21)(22) m) Acute cardiac pacing n) Intra-aortic balloon pump o) Ventricular assist device p) Extracorporeal membrane oxygenation device q) Pericardiocentesis r) Hemodialysis in unstable patient s) Continuous renal replacement therapy (eg, continuous venovenous hemodialysis ) t) Continuous fluid removal via hemofiltration (eg, continuous venovenous hemofiltration) u) Peritoneal dialysis initiation v) Emergency bronchoscopic therapy (eg, for hemoptysis) w) Emergency endoscopic therapy for bleeding x) Balloon tamponade for variceal bleeding y) Intracranial pressure monitoring or tissue oxygen monitoring z) Ventriculostomy monitoring aa) Treatment of ongoing seizures bb) Induced hypothermia or coma cc) Ongoing frequent testing and treatment for acute conditions, including 1 or more of the following: i. Correction of severe metabolic acidosis or alkalosis ii. Frequent glucose checks (ie, more frequent than performable at lower level of care) iii. Severe fluid overload iv. Cerebral edema v. Monitoring or suctioning for respiratory insufficiency or acidosis vi. Monitoring for active bleeding dd) Other need for treatment or monitoring not available outside the ICU VII. Systemic conditions, including 1 or more of the following: a) Severe electrolyte or metabolic disturbance causing or likely to cause 1 or more of the following(13)(16)(17)(18)(19): i. Life-threatening cardiac dysrhythmia ii. Respiratory insufficiency iii. Altered mental status iv. Seizures v. Hemodynamic instability vi. Muscular weakness b) Environmental injuries such as Hypothermia, hyperthermia, electrical injuries , or near drowning(27)(28)(29)(30)(31) c) Anaphylaxis with respiratory compromise, Hypotension, or other end organ dysfunction(32)(33) d) Confirmed or suspected malignant hyperthermia as evidenced by exposure to volatile anesthetic agent or succinylcholine and 1 or more of the following(27)(34): i. Hypermetabolism as evidenced by inappropriately increased CO2 production, O2 consumption, or acute mixed metabolic and respiratory acidosis ii. Unexplained Tachycardia iii. Cardiac tachyarrhythmias, ectopic ventricular beats or ventricular bigemini iv. [place] spasm v. Muscle rigidity vi. Rapid increase in core body temperature vii. Acute rise in serum potassium, creatine kinase, or myoglobin e) Neuroleptic malignant syndrome as evidenced by exposure to neuroleptic drug ( eg, phenothiazine, butyrophenone) or dopamine depleting drug (eg, alpha-methyltyrosine),or withdrawal of dopaminergic agent (eg, L-dopa, amantadine) and 1 or more of the following(27)(34): i. Muscle rigidity ii. Hyperthermia iii. Altered mental status iv. Hemodynamic instability v. Acute rise in creatine kinase f) Serotonin syndrome (serotonin toxicity) as evidenced by exposure to medication(s) that increases level of serotonin in [employer] (eg, some antidepressants, opioids, stimulants, triptans) and 1 or more of the following: i. Significant neurologic finding (eg, agitation, hypomania, hallucinations, Altered mental status ) ii. Significant autonomic nervous system-related finding (eg, sweating, hyperthermia, tachycardia, vomiting) iii. Significant musculoskeletal findings (eg, myoclonus, hyperreflexia, tremor) g) Severe alcohol withdrawal with 1 or more of the following(36)(37)(38): i. Hemodynamic instability ii. Cardiac arrhythmias of immediate concern iii. Uncontrolled seizures iv. Respiratory depression with need for, or high likelihood of requiring, mechanical ventilation v. Need for anesthetic agent to control agitation (eg, dexmedetomidine, propofol ) vi. Delirium tremens as evidenced by ALL of the following: a) Cessation of, or reduction in, heavy and prolonged alcohol use b) Delirium c) 2 or more of the following symptoms: i. Autonomic hyperactivity ii. Tremor iii. Nausea or vomiting iv. Hallucinations v. Increased anxiety vi. Psychomotor agitation vii. Generalized tonic-clonic seizures [X] VIII. Cardiology diagnoses or procedures, including 1 or more of the following(39)(40)(41)(42)(43): a) Chest pain with 1 or more of the following: i. Hemodynamic instability ii. Suspicion of diagnoses needing ICU care (eg, aortic dissection) iii. New unstable or symptomatic arrhythmia or ECG finding (eg, ventricular tachycardia, ventricular fibrillation, advanced heart block) iv. Syncope or near-syncope v. Pulmonary edema thought to be due to ischemia vi. New or worsening mitral regurgitation murmur, S3, or rales b) Acute NM or unstable angina with complications as indicated by 1 or more of the following: i. Persistent chest pain ii. Hemodynamic instability iii. New unstable or symptomatic arrhythmia or ECG finding (eg, ventricular tachycardia, ventricular fibrillation, advanced heart block) iv. Syncope or near-syncope v. Pulmonary edema thought to be due to ischemia vi. New or worsening mitral regurgitation murmur, S3, or rales vii. New-onset bundle branch block viii.Hemorrhagic complication (eg, intracranial or access site bleed following thrombolysis) c) Complication of cardiac ablation, indicated by 1 or more of the following(45) (46): i. Pericardial tamponade ii. Hemodynamic instability iii. Thromboembolic stroke iv. Aortic or mitral valve injury v. Vascular injuries vi. Esophageal perforation vii. Severe arrhythmia viii. Air embolism ix. Other severe complication d) Ablation with need for post-procedure invasive hemodynamic monitoring(45) e) Hemodynamic instability due to cardiac cause (eg, valve disease, arrhythmia, ischemia, conduction abnormality) (47)(48)(49) f) Hypertensive emergency, with need for 1 or more of the following(38)(39): i. IV antihypertensive therapy ii. Invasive hemodynamic monitoring (eg, arterial line) g) Infective endocarditis with 1 or more of the following(50)(51): i. Hemodynamic instability ii. Valvular dysfunction with congestive heart failure iii. Need for inotropic agent iv. Severe arrhythmia v. Intracranial mycotic aneurysm vi. Hemorrhagic stroke vii. Altered mental status that is severe or persistent viii. Acute respiratory failure ix. Requirement for frequent hemodynamic measurements x. Acute renal failure xi. Acute ischemic end organ damage (eg, small bowel infarction) xii. Need for acute surgical valve repair or replacement xiii. Severe pulmonary edema (eg, severe mitral regurgitation) h) Pericardial tamponade i) Severe heart failure, indicated by 1 or more of the following(40): i. Hemodynamic instability ii. Respiratory failure iii. Severe arrhythmias iv. Evidence of cardiac ischemia j) Myocarditis, with 1 or more of the following(52)(53)(54)(55): i. Hemodynamic instability ii. Respiratory failure iii. Severe arrhythmias iv. Need for cardiac assist device (eg, left ventricular assist device or extracorporeal membrane oxygenator) [X] k) Status post cardiac arrest(56) IX. Cardiovascular Surgery diagnoses or procedures, including 1 or more of the following (57)(58)(59): a) Acute aortic dissection b) Aortic surgery for 1 or more of the following: i. Thoracic aneurysm ii. Abdominal aneurysm with 1 or more of the following (60): A. Emergency repair B. Severe cardiopulmonary disease C. Dialysis-dependent renal failure D. Need for IV blood pressure control E. Need for ongoing ventilatory support F. Abdominal compartment syndrome G. Perioperative complications, including 1 or more of the followin. Hemodynamic instability 2. Cardiac ischemia or arrhythmia 3. Hypothermia 4. Blood transfusion greater than 3 L 5. Acute lower extremity ischemia 6. Ischemic colitis iii. Aortic coarctation operative excision or repair iv. Aortofemoral or aortoiliac bypass with 1 or more of the following: A. Continued intubation and mechanical ventilation B. Hemodynamic instability C. Need for IV blood pressure control D. Severe cardiopulmonary disease c) Cardiac surgery (eg, CABG, valve replacement) d) Carotid endarterectomy or stent placement with 1 or more of the following: i. Blood pressure less than 100/60 mm Hg or greater than 160/90 mm Hg despite 4 hours of postanesthetic management ii. Need for IV blood pressure control iii. New or progressive neurologic defect iv. Chest pain v. Continued intubation vi. Heart failure vii. Airway compromise by hematoma or vocal cord paralysis e) Heart transplant f) Infrainguinal peripheral vascular surgery with 1 or more of the following: i. Hemodynamic instability ii. Acute complications such as persistent chest pain or respiratory distress iii. Requirement for IV antiarrhythmic or vasoactive agent iv. Requirement for pulmonary artery catheter v. Severe hypertension despite 6 hours of recovery room management g) Complications of any cardiovascular surgery requiring ICU intervention as indicated by 1 or more of the following(61) i. Hemodynamic instability ii. NM with complications (eg, severe arrhythmia, hypotension) iii. Excessive bleeding or severe coagulopathy iv. Respiratory failure v. Renal failure vi. Airway instability or obstruction vii. Neurologic deterioration viii. Infection with likelihood of sepsis syndrome or significant fluid shifts X. Endocrinology diagnoses or procedures, including 1 or more of the following: a) Adrenal crisis with Hemodynamic instability(18)(62)(63) b) Pheochromocytoma with 1 or more of the following(62): i. Hypertensive crisis ii. Postoperative for 24 hours after resection of pheochromocytoma iii. Postoperative Hemodynamic instability iv. Need for IV vasoactive therapy v. Need for invasive arterial or central venous pressure monitoring vi. Organ ischemia c) Diabetic hyperosmolar state with Altered mental status that is severe or persistent(64) d) Diabetic ketoacidosis with 1 or more of the following (64)(65)(66)(67): i. Serum pH less than 7.10 or bicarbonate level less than 10 mEq/L (mmol/L) ii. Rapidly changing electrolytes iii. Significant hypokalemia (eg.ECG changes) iv. Hypotension v. Requirement for large-volume fluid resuscitation vi. Requirement for intravenous insulin administration vii. Requirement for nursing care (eg, glucose checks) beyond capabilities of lower levels of care. viii. Respiratory insufficiency ix. Life-threatening cardiac dysrhythmias x. Altered mental status that is severe or persistent xi. Severe precipitating condition such as sepsis, stroke, or acute NM xii. Child at increased risk of cerebral edema (eg, age younger than 5 years, high BUN) xiii. Child with clinical signs of cerebral edema (eg, headache, Altered mental status, cranial nerve palsy, papilledema, rising blood pressure with slowing heart rate) e) Severe hypoglycemia requiring continuous glucose infusion with frequent adjustment (eg, in response to glucose checks) or glucagon administration (18) f) Hyperthyroidism associated with thyroid storm (also known as thyrotoxic crisis)(18)(68) g) Myxedema with severe precipitating factor (eg, sepsis, myocardial infarction , stroke), or life-threatening neurologic, pulmonary, cardiovascular, electrolyte, or renal sequelae(69) h) Diabetes insipidus that cannot be controlled rapidly (eg, with medication) ( 70) XI. Gastroenterology diagnoses or procedures, including 1 or more of the following;(71) a) Acute diverticulitis with 1 or more of the following(72)(73): i. Active GI bleeding (eg, transfusion requirement greater than 2 units of packed red cells, known coagulopathy) ii. Hemodynamic instability iii. Vital sign abnormality due to infection (eg, peritonitis) b) Esophageal or gastric perforation(74) c) Severe caustic esophageal or gastric injury(75)(76) d) Liver disease complications with 1 or more of the following(77)(78)(79)(80): i. Severe hepatic encephalopathy (eg, stage 3 (somnolent) or higher) ii. Type 1 hepatorenal syndrome iii. Other cirrhosis-associated causes of renal failure (eg, severe hypovolemia , acute tubular necrosis, abdominal compartment syndrome) iv. Hemodynamic instability v. Respiratory insufficiency due to severe ascites vi. Severe electrolyte abnormalities vii. Vital sign abnormality due to infection (eg, bacterial peritonitis) e) Fulminant hepatic failure when aggressive intervention or transplant is anticipated(81) f) Gallbladder or bile duct inflammation (eg, cholangitis or cholecystitis) with 1 or more of the following(82): i. Hemodynamic instability ii. End organ failure (eg, worsening renal function) g) Gastrointestinal hemorrhage (upper or lower) with 1 or more of the following( 72)(83)(84): i. Active ongoing bleeding ii. Transfusion requirement greater than 2 units of packed red cells iii. Bleeding ulcer, visible blood vessel, bleeding (or recently bleeding) esophageal varices seen on endoscopy iv. Hypotension v. Syncope vi. Coagulopathy vii. Hepatic cirrhosis viii. Altered mental status ix. Unstable comorbid condition or end organ dysfunction x. Ischemia due to poor perfusion xi. Need for invasive (eg, pulmonary-artery catheter) hemodynamic monitoring (eg , for patients with severe heart failure or valvular disease) xii. Excessive hematemesis requiring intubation for airway protection h) Severe pancreatitis indicated by 1 or more of the following(85)(86)(87): i. Requirement for aggressive fluid resuscitation ii. Severe electrolyte abnormality iii. Hypotension iv. Persistent tachycardia greater than 120 beats per minute v. Patient at high risk of rapid deterioration, including 1 or more of the following: A. Calculated [place] II score greater than 8 B. Age older than 55 years C. BMI greater than 30 D. Greater than 30% pancreatic necrosis on CT scan E. Admission hematocrit greater than 47% (0.47) vi. Organ failure as indicated by 1 or more of the following: A. Serum creatinine greater than 1.9 mg/dL (168 micromoles/L) B. Urine output less than 50 mL/hour C. Requirement for mechanical ventilation D. Arterial partial pressure of oxygen less than 60 mm Hg (8.0 kPa) despite supplemental oxygen E. PiO2/FiO2 ratio less than 300 vii. Expanding pseudocyst viii. Infected pancreas ix. Need for pain control (eg, IV opioids) not performable at lower level of care x. Pleural effusion xi. Encephalopathy xii. Severe active comorbidities (eg, liver disease) XII. General Surgery diagnoses or procedures, including 1 or more of the following(8)(61)(88): a) Acute abdominal catastrophe (eg, ischemic bowel, perforated viscus, abdominal compartment syndrome) b) Complications of any surgery requiring ICU intervention as indicated by 1 or more of the following: i. Hemodynamic instability ii. NM with complications (eg, severe arrhythmia, Hypotension ) iii. Excessive bleeding or severe coagulopathy iv. Respiratory failure or insufficiency v. Renal failure vi. Airway instability or obstruction vii. Neurologic deterioration viii. Infection with Hypotension or significant fluid shifts c) Multiple trauma with complicating features as indicated by 1 or more of the following(89)(90): i. Serious injury involving more than one organ or system ii. Single organ injury requiring critical care intervention or monitoring (eg, invasive hemodynamic monitoring, frequent vital signs or neurologic checks) iii. Impending acute respiratory failure due to lung contusion, unstable chest wall, aspiration, hemorrhage, tension or open pneumothorax, or fat embolism iv. Facial or neck injury threatening airway patency v. Cardiac contusion vi. Pericardial effusion vii. Bronchial tear viii. Hemodynamic instability ix. Rhabdomyolysis requiring large volume IV fluid resuscitation x. Other significant complicating feature d) Organ transplant(91)(92)(93) e) Esophagectomy(71) f) Pancreatectomy (eg, Whipple procedure) g) Preoperative or postoperative patients requiring ICU intervention, such as hemodynamic optimization, pulmonary artery monitoring, mechanical ventilation, or extensive nursing care h) Obesity surgery patient with 1 or more of the following(94): i. ICU management needs for comorbid conditions (eg, airway issues due to severe sleep apnea) ii. Failed postoperative extubation iii. Intraoperative complications (eg, perforated viscus, bleeding) XIII. Head and Neck Surgery diagnoses or procedures, including 1 or more of the following (95)(96): a) Complications of any surgery requiring ICU intervention as indicated by 1 or more of the following: i. Hemodynamic instability ii. NM with complications (eg, severe arrhythmia, Hypotension ) iii. Excessive bleeding or severe coagulopathy iv. Respiratory failure or insufficiency v. Renal failure vi. Airway instability or obstruction vii. Neurologic deterioration viii. Infection with likelihood of sepsis syndrome or significant fluid shifts b) Preoperative or postoperative patient requiring ICU intervention, such as pulmonary artery monitoring, mechanical ventilation, or extensive nursing care c) Life-threatening infection of head and neck, including 1 or more of the following(81)(82)(83): i. Ramon's angina (submandibular and lingual cellulitis) ii. Lateral or posterior pharyngeal space infection iii. Peritonsillar abscess iv. Lemierre syndrome (Fusobacterium oropharyngeal infection complicated by jugular vein septic thrombophlebitis) v. Acute epiglottitis vi. Other upper airway infection causing or threatening airway compromise d) Airway or hemodynamic compromise that persists after 3 hours of observation in postanesthesia care unit following nasal, palate (eg, uvulopalatopharyngoplasty or palatoplasty), or tongue surgery for sleep apnea e) Symptomatic upper airway compromise (eg, laryngeal edema, mass) f) Other airway-compromising procedure (eg, posterior nasal packing) XIV. Hematology - Oncology diagnoses or procedures, including chemotherapy administration, with 1 or more of the following(100)(101)(102)(103): a) Hemodynamic instability b) Severe sickle cell crisis indicated by 1 or more of the following(104): i. Hemodynamic instability ii. Evidence of [employer] injury (eg, stroke) iii. Altered mental status that is severe or persistent iv. Respiratory distress v. End organ ischemia (eg. intestinal) or failure (eg. renal) vi. Need for treatment (eg, pain control with IV opioids) or monitoring (eg, for renal failure, aplastic crisis) not performable at lower level of care c) Hyperleukocytosis (white blood cell count greater than 100,000/mm3 (100 x109/ L)) and 1 or more of the following: i. Respiratory manifestations (eg, dyspnea, Hypoxemia, acute respiratory distress syndrome) ii. Neurologic manifestations (eg, focal deficit, Altered mental status, seizure ) iii. Cardiac ischemia iv. Other end organ dysfunction (eg, acute kidney injury, visual disturbances) d) Superior vena cava or superior mediastinal syndrome and 1 or more of the following: i. Hemodynamic instability ii. Respiratory symptoms (eg, dyspnea, Tachypnea ) iii. Hypotension iv. Known or suspected pericardial effusion v. Known or suspected airway compromise e) Thrombotic microangiopathy syndrome (eg, thrombotic thrombocytopenic purpura , hemolytic uremic syndrome) and 1 or more of the following (105)(106): i. Acute kidney injury indicated by 1 or more of the following: A. 2-fold rise in serum creatinine from baseline B. Reduction of more than 50% in estimated glomerular filtration rate from baseline C. Urine output less than 0.5 mL/kg/hour for 12 hours despite adequate volume status ii. Altered mental status iii. Seizure iv. Active blood loss v. Other end organ dysfunction (eg, acute respiratory distress syndrome, cardiac ischemia) f) Tumor lysis syndrome with 1 or more of the following: i. Acute kidney injury indicated by 1 or more of the following: A. 2-fold rise in serum creatinine from baseline B. Reduction of more than 50% in estimated glomerular filtration rate from baseline C. Urine output less than 0.5 mL/kg/hour for 12 hours despite adequate volume status ii. Severe electrolyte abnormality iii. Cardiac dysrhythmia iv. Seizure XV. Infectious Disease diagnosis, with 1 or more of the following(1)(5(6))(107)( 108): a) Hemodynamic instability b) Requirement for frequent hemodynamic measurements (eg, arterial catheter, pulmonary artery catheter) c) End organ dysfunction (eg, acute kidney injury, acute respiratory distress syndrome) d) Necrotizing soft tissue infection(109) XVI. Nephrology diagnoses or procedures, including acute or acute on chronic renal insufficiency, with 1 or more of the following(110)(111)(112)(113): a) Severe electrolyte or acid-base disorder b) Acute pulmonary edema c) Hypotension d) Hypertensive emergency (eg, encephalopathy, myocardial ischemia) e) Severe hypertension with need for IV vasodilator (eg, nitroprusside) or arterial catheter for blood pressure monitoring f) Underlying critical illness contributing to renal failure (eg, septic shock, hepatorenal syndrome) g) Need for continuous renal replacement therapy h) Pyelonephritis with Hemodynamic instability (5)(107) XVII. Neurology diagnoses or procedures, including 1 or more of the following( 115)(116)(117): a) Intracranial hypertension requiring 1 or more of the following(118): i. Induced barbiturate coma ii. Pharmacologic paralysis or deep sedation and mechanical ventilation iii. Intracranial pressure or cerebral perfusion pressure monitoring iv. IV mannitol or hypertonic saline v. Frequent serum osmolality measurements b) Seizures with 1 or more of the following(119)(120): i. Status epilepticus ii. Severe electrolyte abnormalities causing seizures iii. Airway compromise requiring or likely to require mechanical ventilation c) Progressive acute neurologic dysfunction requiring or likely to require 1 or more of the following: i. Mechanical ventilation ii. Intracranial pressure or cerebral perfusion pressure monitoring d) [employer] infection (eg, meningitis, encephalitis) 1 or more of the following[C]( 121)(122)(123)(124): i. Hemodynamic instability ii. Altered mental status that is severe or persistent iii. Respiratory insufficiency iv. Elevated intracranial pressure v. Refractory seizures e) Stroke with 1 or more of the following(125)(126)(127)(128): i. Need for observation after thrombolysis ii. Altered mental status iii. Need for mechanical ventilation iv. Elevated intracranial pressure v. Hypertensive emergency vi. High risk of progressive infarction or deterioration based on CT scan or MRI vii. Hemorrhage f) Acute coma g) Acute spinal cord compression (eg, epidural abscess, hematoma, tumor) h) Acute spontaneous intracranial hemorrhage(127)(129)(130) i) Traumatic brain injury with 1 or more of the following(117)(131)(132): i. Altered mental status that is severe or persistent ii. Cerebral edema iii. Cerebral hemorrhage iv. Increased intracranial pressure j) Drug ingestion or toxic exposure with 1 or more of the following(133)(134)( 135): i. Hemodynamic instability ii. Respiratory depression (eg, new partial pressure of carbon dioxide greater than 45 mm Hg (6.0 kPa)) iii. Patient requires or is likely to require mechanical ventilation. iv. Arrhythmia v. Seizures vi. Altered mental status that is severe or persistent vii. Significant risk for acute deterioration (eg, toxic drug level) viii. Drug-induced Hypothermia or hyperthermia(27) ix. Significant or worsening metabolic acidosis x. Severe hypoglycemia requiring glucose infusion with frequent adjustment or glucagon administration xi. Ongoing antidote administration (eg, continuous naloxone infusion, organophosphate toxicity treatment) xii. Emergency intervention need (eg, dialysis, hemoperfusion, restraints) k) Brain with preparation for organ donation XVIII. Neurosurgery diagnoses or procedures, including 1 or more of the following(118)(136)(137): a) Emergency craniotomy for tumor, hematoma, or trauma b) Elective craniotomy for posterior fossa tumor c) Elective craniotomy (supratentorial) for tumor with 1 or more of the following(138): i. Postoperative neurologic deficit or impaired consciousness 6 hours after completion of procedure ii. Systolic blood pressure less than 110 mm Hg or greater than 180 mm Hg despite therapy iii. Extensive operative blood loss iv. High anesthesia risk (eg, [place] [employer] score greater than 3). See [place] [employer]esthesiologists (ASA) Physical Status Classification System. d) Craniotomy for aneurysm with 1 or more of the following: i. Postoperative neurologic deficit or impaired consciousness 6 hours after completion of procedure ii. Preoperative Moreau-Alaniz grade 3 or higher iii. Systolic blood pressure less than 110 mm Hg or greater than 180 mm Hg despite therapy iv. Intracranial pressure monitoring e) Acute spinal cord injury f) Subarachnoid hemorrhage(127) g) Traumatic brain injury with 1 or more of the following(131)(139): i. Altered mental status that is severe or persistent ii. CT scan showing cerebral edema or hemorrhage iii. Intracranial pressure monitoring h) Complications of surgery requiring ICU intervention as indicated by 1 or more of the following(140): i. Hemodynamic instability ii. NM with complications (eg, severe arrhythmia, Hypotension ) iii. Excessive bleeding or severe coagulopathy iv. Respiratory failure or insufficiency v. Renal failure vi. Airway instability or obstruction vii. Neurologic deterioration viii. Infection with Vital sign abnormality i) Preoperative or postoperative patient requiring ICU intervention, such as pulmonary artery monitoring, mechanical ventilation, or extensive nursing care XIX. Obstetrics andGynecology diagnoses or procedures, including 1 or more of the following (141)(142)(143)(144)(145): a) Severe peripartum condition as indicated by 1 or more of the following: i. Eclampsia ii. Hypertensive emergency iii. HELLP (hemolysis, elevated liver enzymes, and low platelet count) syndrome iv. Pulmonary edema (eg, due to cardiomyopathy) v. Severe arrhythmia vi. Respiratory failure vii. Pulmonary embolism viii. Anaphylactoid syndrome of (amniotic fluid embolus) ix. Ovarian hyperstimulation syndrome[C] x. Acute fatty liver of (hepatic failure) xi. Vital sign abnormality due to infection (eg, puerperal sepsis, chorioamnionitis, septic , pneumonia) xii. Complications such as placental abruption or severe hemorrhage xiii. Severe cardiac complication such as coronary or aortic dissection, or acute coronary syndrome b) Ruptured ectopic c) Complications of any surgery requiring ICU intervention as indicated by 1 or more of the following: i. Hemodynamic instability ii. NM with complications (eg, severe arrhythmia, Hypotension ) iii. Excessive bleeding or severe coagulopathy iv. Respiratory failure or insufficiency v. Renal failure vi. Airway instability or obstruction vii. Neurologic deterioration viii. Infection with Vital sign abnormality d) Preoperative or postoperative patient requiring ICU intervention, such as pulmonary artery monitoring, mechanical ventilation, or extensive nursing care XX. Ophthalmology diagnoses or procedures, including 1 or more of the following( 146): a) Complications of any surgery requiring ICU intervention, such as 1 or more of the following: i. Hemodynamic instability ii. NM with complications (eg, severe arrhythmia, Hypotension ) iii. Excessive bleeding or severe coagulopathy iv. Respiratory failure or insufficiency v. Renal failure vi. Airway instability or obstruction vii. Neurologic deterioration viii. Infection with Vital sign abnormality b) Preoperative or postoperative patient requiring ICU intervention, such as pulmonary artery monitoring, mechanical ventilation, or extensive nursing care XXI. Orthopedics diagnoses or procedures, including 1 or more of the following (147)(148): a) Complications of any surgery requiring ICU intervention as indicated by 1 or more of the following: i. Hemodynamic instability ii. NM with complications (eg, severe arrhythmia, Hypotension ) iii. Excessive bleeding or severe coagulopathy iv. Respiratory failure or insufficiency v. Renal failure vi. Airway instability or obstruction vii. Neurologic deterioration viii. Infection with Vital sign abnormality b) Multiple trauma with complicating features as indicated by 1 or more of the following(89)(90(149): i. Serious injury involving more than one organ or system ii. Single organ injury requiring critical care intervention or monitoring (eg, invasive hemodynamic monitoring, frequent vital signs or neurologic checks) iii. Impending acute respiratory failure due to lung contusion, unstable chest wall, aspiration, hemorrhage, tension or open pneumothorax, or fat embolism iv. Facial or neck injury threatening airway patency v. Cardiac contusion vi. Rhabdomyolysis requiring large volume IV fluid resuscitation vii. Pericardial effusion viii. Bronchial tear ix. Hemodynamic instability x. Other significant complicating feature c) Compartment syndrome diagnosed, suspected, or threatened(150) d) Severe montgomery with 1 or more of the following(151)(152)(153): i. Hypotension or requirement for aggressive fluid resuscitation ii. Respiratory insufficiency with requirement for high-flow oxygen or mechanical ventilation iii. Carbon monoxide poisoning iv. Life-threatening cardiac, renal, pulmonary, or neurologic dysfunction v. High-voltage (eg, 1000 volts or more) electrical burn vi. Chemical burn vii. Requirement for frequent or intensive debridement and dressing changes; examples include: A. Partial-thickness montgomery greater than 10% of body surface B. Montgomery on face, hands, feet, genitalia, perineum, or major joints C. Third-degree montgomery D. Any burn greater than 15% of body surface area viii. Inhalation lung injury ix. Severe infection x. Concomitant trauma or other medical condition requiring ICU care e) Preoperative or postoperative patient requiring ICU intervention, such as pulmonary artery monitoring, mechanical ventilation, or extensive nursing care XXII. Thoracic Surgery and Pulmonary Disease diagnoses or procedures, including 1 or more of the following: a) Asthma with 1 or more of the following(154)(155)(156)(157)(158): i. Respiratory distress ii. Impending or actual respiratory failure iii. Need for mechanical ventilation iv. Peak expiratory flow rate less than 30% of predicted or personal best v. Peak expiratory flow rate or FEV1 less than 40% predicted after 1 hour of initial treatment vi. Acidosis vii. Persistent or worsening Hypoxemia after initial treatment viii. Hypercapnia (eg, partial pressure of carbon dioxide greater than 43 mm Hg (5.7 kPa)) ix. Altered mental status that is severe or persistent x. Requiring continuous inhaled bronchodilator xi. Cardiac arrhythmias of immediate concern xii. Hypotension xiii. Child 5 years or younger and 1 or more of the following: A. Unable to speak or drink B. Central cyanosis C. Subcostal or subglottic contractions D. Oxygen saturation less than 92% E. Silent chest on auscultation F. Age 0 to 3 years with pulse rate greater than 200 bpm G. Age 4 to 5 years with pulse rate greater than 180 bpm b) COPD with 1 or more of the following(159): i. Need for assisted ventilation ii. Hemodynamic instability iii. Severe dyspnea unresponsive to initial treatment iv. Altered mental status v. Persistent findings despite oxygen and outpatient management, including 1 or more of the following: A. Partial pressure of oxygen less than 40 mm Hg (5.3 kPa) B. Partial pressure of carbon dioxide greater than 60 mm Hg (8.0 kPa) C. pH less than 7.25 D. Worsening Hypoxemia or acidosis c) Cor pulmonale with 1 or more of the following(159)(160)(161)(162)(163): i. Hemodynamic instability ii. Need for IV inotropic or vasoactive agent iii. Need for inhaled nitric oxide or epoprostenol iv. Need for invasive hemodynamic monitoring (eg, central venous, pulmonary artery, or arterial catheter) v. Partial pressure of oxygen less than 40 mm Hg (5.3 kPa) vi. Worsening Hypoxemia or acidosis despite oxygen therapy vii. Unstable atrial tachyarrhythmia viii. Need for assisted ventilation ix. Need for extracorporeal membrane oxygenator or right ventricular assist device d) Aspiration pneumonia with 1 or more of the following(164)(165)(166): i. Acute respiratory distress syndrome (eg, PaO2/FiO2 ratio of 300 or less) ii. Impending or actual respiratory failure iii. Need for invasive or noninvasive mechanical ventilation e) Pneumocystis jiroveci pneumonia with 1 or more of the following(168)(169): i. Hypoxia (eg, PO2 60 mm Hg (8.0 kPa) or less despite oxygen therapy) ii. Impending or actual respiratory failure iii. Need for invasive or noninvasive mechanical ventilation f) Pneumonia in adult with 1 or more of the following(136)(137): i. Need for invasive or noninvasive assisted ventilation ii. Hemodynamic instability iii. 3 or more of the following severity factors: A. PaO2/FiO2 ratio of 310 or less B. Multilobed infiltrates C. Altered mental status D. BUN 20 mg/dL (7.1 mmol/L) or greater E.WBC count less than 4000/mm3 (4 x109/L) F. Platelet count less than 100,000/mm3 (100 x109/L) G. Serum sodium less than 130 mEq/L (mmol/L) H. Temperature less than 96.8 degrees F (36 degrees C) g) Pneumonia in child with 1 or more of the following(170)(171)(172): i. Impending respiratory failure ii. Need for invasive or noninvasive ventilation iii. Hemodynamic instability iv. Pulse oximetry less than 92% on more than 50% inspired oxygen v. Recurrent apnea vi. Altered mental status h) Pulmonary hypertension requiring initiation of parenteral pulmonary vasodilator or trial of inhaled nitric oxide (eg, need for right heart catheterization)(160)(173)(174) i) Impending respiratory failure as indicated by 1 or more of the following: i. Respiratory rate greater than 30 breaths per minute in adult ii. Partial pressure of oxygen less than 60 mm Hg (8.0 kPa) on 50% oxygen or more iii. Partial pressure of carbon dioxide greater than 45 mm Hg (6.0 kPa) with pH less than 7.35 j) Respiratory failure with 1 or more of the following(116)(173)(174): i. Need for invasive or noninvasive mechanical ventilation ii. High likelihood of requiring mechanical ventilation within 24 hours iii. Observation in first several hours immediately after extubation from mechanical ventilation iv. Need for close observation and aggressive therapy, such as suctioning, chest physiotherapy, or inhalation treatments at intervals less than 1 hour v. Pharmacologic ventilatory paralysis k) Venous thromboembolism with need for systemic or catheter-directed thrombolysis (eg, for limb-threatening or organ-threatening thrombosis, obstructive superior vena cava syndrome)( 176)(177)(178) l) Pulmonary embolus with 1 or more of the following(176)(177)(178): i. Hypotension ii. Partial pressure of oxygen less than 60 mm Hg (8.0 kPa) on supplemental oxygen iii. Dangerous arrhythmia iv. Bleeding v. Need for systemic or catheter-directed thrombolysis m) Lobectomy or other major thoracic surgery n) Lung transplant o) Need for extracorporeal membrane oxygenation(179) p) Symptomatic upper airway obstruction (eg, laryngeal edema, mass) q) Massive hemoptysis (eg, greater than 200 mL per day)(180) r) Infection or thrombosis of intravenous device with 1 or more of the following(6)(7)(146): i. Unstable acute complication (eg, pericardial tamponade, tension pneumothorax , active bleeding) ii. Hemodynamic instability iii. Requirement for frequent hemodynamic measurements iv. End organ dysfunction (eg, renal failure, Altered mental status that is severe or persistent ) v. Acute renal complications due to missed dialysis (eg, severe electrolyte abnormalities, uremia, or acidosis) s) Traumatic rib fracture or fractures with 1 or more of the following(182): i. Injury severity score of 19 or greater ii. Respiratory insufficiency iii. Flail chest iv. Sternum fracture v. Vascular injury (eg, heart or great vessels) t) Pleural effusion with 1 or more of the following(183): i. Respiratory insufficiency ii. Hemothorax with active ongoing bleeding iii. Hemodynamic instability iv. Unstable comorbid condition (eg, heart failure) XXIII. Urology diagnoses or procedures, including 1 or more of the following(184 )(185): a) Renal transplant b) Post-obstructive diuresis (eg, following catheterization or stent for obstructive uropathy) greater than 4 L per day requiring large volume fluid replacement and frequent monitoring and replacement of electrolytes(186) c) Complications of any surgery requiring ICU intervention as indicated by 1 or more of the following: i. Hemodynamic instability ii. NM with complications (eg, severe arrhythmia, Hypotension ) iii. Excessive bleeding or severe coagulopathy iv. Respiratory failure or insufficiency v. Renal failure vi. Airway instability or obstruction vii. Neurologic deterioration viii. Infection with Vital sign abnormality d) Preoperative or postoperative patient requiring ICU intervention, such as pulmonary artery monitoring, mechanical ventilation, or extensive nursing care The original [employer] content created by [employer] has been revised. The portions of the content which have been revised are identified through the use of italic text or in bold, and [facility] has neither reviewed nor approved the modified material. All other unmodified content is copyright [employer]. Please see references footnoted in the original [employer] edition 2017 Admission Criteria Met?: Yes JALIL AG Feb 13, 2017 01:52
[2017-02-13 04:16] LABS: CALCIUM 8.1 mg/dL (8.5-10.1); CREATININE 1.4 mg/dL (0.6-1.0); GFR 47.4; POTASSIUM 4.3 mmol/L (3.5-5.1)
[2017-02-13 04:20] LABS: MAGNESIUM 1.8 mg/dL (1.8-2.4); PHOSPHORUS 3.7 mg/dL (2.6-4.7)
[2017-02-13 04:24] LABS: ALBUMIN 2.2 g/dL (3.4-5.0); TOTAL BILIRUBIN 2.9 mg/dL (0.2-1.0); TOTAL PROTEIN 5.3 g/dL (6.4-8.2)
[2017-02-13] MEDS ORDERED: IV NORMAL SALINE 1000ML BAG 1,000 ML IV ONE ×2 (04:45→05:30)
[2017-02-13] MEDS: PIPERACILLIN/TAZOBACTAM 3.375 GM in IV NORMAL SALINE 50ML 50 ML IV SCH ×4 (05:51→23:51)
[2017-02-13] MEDS: ACETAMINOPHEN 650 MG/20.3 ML SOLUTION. NG SCH ×2 (05:51→05:53)
[2017-02-13 06:15] LABS: HEMATOCRIT 34.1 % (36.0-47.0); HEMOGLOBIN 12.1 g/dL (12.0-15.5); RED BLOOD COUNT 3.51 x10^6/uL (3.50-5.40); RED CELL DISTRIBUTION WIDTH 13.1 % (11.5-14.5); WHITE BLOOD COUNT 9.4 x10^3/uL (4.0-11.0)
[2017-02-13 06:27] LABS: INR 2.7 (0.8-1.1); PROTHROMBIN TIME PATIENT 26.7 SEC (11.7-14.0)
[2017-02-13] MEDS: IV NORMAL SALINE 1000ML BAG 1,000 ML IV SCH (06:36)
--- NOTE | 2017-02-13 07:52 | EKG ---
[facility] [address] [place] [address] Test Date: 2017-02-12 Test Time: 16:36:12 Pat Name: LELAND ASKEW Department: Room: 110 1 Gender: F Harness Tier: : 1960 Requested By: HARRISON ALEXANDER Order Number: [id number] Reading MD: Yoli Diez Measurements Intervals [place] Rate: 89 P: 90 [place]: 156 QRS: 77 QRSD: 86 T: 52 QT: 380 QTc: 463 Interpretive Statements SINUS RHYTHM LOW LIMB LEAD VOLTAGE Electronically Signed On 02-15-2017 10:07:10 CDT by Yoli Diez
[2017-02-13] MEDS: MIDAZOLAM PREMIX 100 ML IV PRN (08:19)
[2017-02-13 08:40] LABS: CALCIUM 7.7 mg/dL (8.5-10.1); CREATININE 1.2 mg/dL (0.6-1.0); GFR 56.6; MAGNESIUM 2.1 mg/dL (1.8-2.4); PHOSPHORUS 3.5 mg/dL (2.6-4.7); POTASSIUM 5.1 mmol/L (3.5-5.1)
[2017-02-13 09:23] LABS: HCO3 ABG 22 mmol/L (21-28); PCO2 ABG 43 mmHg (35-46); PH ABG 7.33 (7.35-7.45); PO2 ABG 148 mmHg (75-108); SAT O2 ABG 99 % (92-99)
[2017-02-13 09:24] LABS: BODY TEMP ABG 90.6 DEG; CORRECTED PCO2 ABG 36 mmHg; CORRECTED PH ABG 7.39; CORRECTED PO2 ABG 124 mmHg
[2017-02-13 09:46] LABS: FIO2 ABG 50
--- NOTE | 2017-02-13 09:54 | EKG ---
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
[2017-02-13] MEDS: ASPIRIN 300 MG SUPP.RECT PR SCH (10:11)
[2017-02-13] MEDS: FAMOTIDINE 20 MG/2 ML VIAL IVP SCH ×2 (10:11→20:34)
[2017-02-13] MEDS: methylPREDNISolone SOD SUCC PF 40 MG/ML VIAL. IV SCH ×3 (10:12→20:35)
--- NOTE | 2017-02-13 10:27 | PDOC2 ---
GI CONSULT Reason For Consult: Coffee-ground material in OG HPI: HPI: 56 y/o female in ICU post code, found down at living facility, no intubated/ sedated in ICU. Black and red material noted from OG, hence GI consult. Also h /o Hep C. Multiple lab abnormalities, improving lactic acid (still 5.5), hyponatremia and hyperkalemia. Elevated troponin, BNP. Hgb stable (12.1), INR 2.7, plt WNL, lactic acid 5.5 (improved), bili 2.9, AST 8606, ALT 3966, Alk Phos 89. BUN 25, Cr 1.2. PMH: PMH: per staff/chart - Hep C, HLD, chronic pain, COPD, anxiety, schizophrenia, UTIs, cataract surgery FH: Family History: Other (unknown) ROS: Unable to obtain. Vitals: Vitals: Vital Signs Date Time Temp Pulse Resp B/P (MAP) Pulse Ox O2 Delivery O2 Flow Rate FiO2 02/13/17 09:00 100 Ventilator 02/13/17 05:15 68 25 131/83 (99) 02/12/17 18:18 91.5 91.5 Labs: Labs: Laboratory Tests Test 02/12/17 15:24 02/12/17 15:45 02/12/17 15:49 02/12/17 15:50 White Blood Count 12.7 x10^3/uL (4.0-11.0) Red Blood Count 3.69 x10^6/uL (3.50-5.40) Hemoglobin 12.3 g/dL (12.0-15.5) Hematocrit 37.4 % (36.0-47.0) Mean Corpuscular Volume 102 fL (79-100) Mean Corpuscular Hemoglobin 33 pg (25-35) Mean Corpuscular Hemoglobin Concent 33 g/dL (31-37) Red Cell Distribution Width 13.1 % (11.5-14.5) Platelet Count 212 x10^3/uL (140-400) Neutrophils (%) (Auto) 88 % (31-73) Lymphocytes (%) (Auto) 9 % (24-48) Monocytes (%) (Auto) 3 % (0-9) Eosinophils (%) (Auto) 0 % (0-3) Basophils (%) (Auto) 0 % (0-3) Neutrophils # (Auto) 11.1 x10^3uL (1.8-7.7) Lymphocytes # (Auto) 1.1 x10^3/uL (1.0-4.8) Monocytes # (Auto) 0.4 x10^3/uL (0.0-1.1) Eosinophils # (Auto) 0.0 x10^3/uL (0.0-0.7) Basophils # (Auto) 0.1 x10^3/uL (0.0-0.2) Segmented Neutrophils % 37 % (35-66) Band Neutrophils % 44 % (0-9) Lymphocytes % 4 % (24-48) Atypical Lymphocytes % (Manual) 5 % (0-0) Monocytes % 5 % (0-10) Basophils % 1 % (0-3) Metamyelocytes % 4 % (0-0) Toxic Granulation Present Dohle Bodies Present Platelet Estimate Adequate (ADEQUATE) Large Platelets Present Polychromasia Slight Poikilocytosis Slight Anisocytosis Slight Macrocytosis Slight Target Cells Tear Drop Cells Occ Ovalocytes Occ Crenated Cell Present Sodium Level 117 mmol/L (136-145) Potassium Level 7.2 mmol/L (3.5-5.1) Chloride Level 81 mmol/L (98-107) Carbon Dioxide Level 23 mmol/L (21-32) Anion Gap 13 (6-14) Blood Urea Nitrogen 15 mg/dL (7-20) Creatinine 1.0 mg/dL (0.6-1.0) Estimated GFR (Cockcroft-Gault) 69.9 Glucose Level 20 mg/dL (70-99) Lactic Acid Level 12.9 mmol/L (0.4-2.0) Calcium Level 9.6 mg/dL (8.5-10.1) Total Bilirubin 0.8 mg/dL (0.2-1.0) Direct Bilirubin 0.3 mg/dL (0.0-0.2) Aspartate Amino Transf (AST/SGOT) 554 U/L (15-37) Alanine Aminotransferase (ALT/SGPT) 305 U/L (14-59) Alkaline Phosphatase 95 U/L (46-116) Bedside Troponin I 0.78 ng/ml (<0.08) Troponin I Quantitative 1.352 ng/mL (0.000-0.055) ML-Yir-H-Type Natriuretic Peptide 56788 pg/mL (0-124) Total Protein 6.9 g/dL (6.4-8.2) Albumin 2.9 g/dL (3.4-5.0) Lipase 43 U/L (73-393) Glucose (Fingerstick) 209 mg/dL (70-99) Urine Collection Type Unknown Urine Color Yellow Urine Clarity Cloudy Urine pH 5.[address] [place] 1.010 Urine Protein 30 mg/dL (NEG-TRACE) Urine Glucose (UA) Negative mg/dL (NEG) Urine Ketones (Stick) Negative mg/dL (NEG) Urine Blood Moderate (NEG) Urine Nitrite Negative (NEG) Urine Bilirubin Negative (NEG) Urine Urobilinogen Dipstick 0.2 mg/dL (0.2 mg/dL) Urine Leukocyte Esterase Trace (NEG) Urine RBC 1-2 /HPF (0-2) Urine WBC 1-4 /HPF (0-4) Urine Squamous Epithelial Cells Occ /LPF Urine Bacteria Many /HPF (0-FEW) Urine Hyaline Casts Occasional /HPF Urine Opiates Screen Neg (NEG) Urine Methadone Screen Neg (NEG) Urine Barbiturates Neg (NEG) Urine Phencyclidine Screen Neg (NEG) Urine Amphetamine/Methamphetamine Neg (NEG) Urine Benzodiazepines Screen Neg (NEG) Urine Cocaine Screen Neg (NEG) Urine Cannabinoids Screen Neg (NEG) Urine Ethyl Alcohol Neg (NEG) O2 Saturation 99 % (92-99) Arterial Blood pH 7.03 (7.35-7.45) Arterial Blood pCO2 at Patient Temp 62 mmHg (35-46) Arterial Blood pO2 at Patient Temp 493 mmHg (75-108) Arterial Blood HCO3 16 mmol/L (21-28) Arterial Blood Base Excess -15 mmol/L (-3-3) Oxyhemoglobin 95.3 % Methemoglobin 0.5 % (0.0-1.9) Carbon Monoxide, Quantitative 3.1 % (0.0-1.9) FiO2 100 Test 02/12/17 16:29 02/12/17 17:19 02/12/17 17:30 02/12/17 19:30 Glucose (Fingerstick) 140 mg/dL (70-99) Sodium Level 118 mmol/L (136-145) 121 mmol/L (136-145) Potassium Level 5.7 mmol/L (3.5-5.1) 5.7 mmol/L (3.5-5.1) Chloride Level 86 mmol/L (98-107) 89 mmol/L (98-107) Carbon Dioxide Level 20 mmol/L (21-32) 25 mmol/L (21-32) Anion Gap 12 (6-14) 7 (6-14) Blood Urea Nitrogen 16 mg/dL (7-20) 17 mg/dL (7-20) Creatinine 1.2 mg/dL (0.6-1.0) 1.2 mg/dL (0.6-1.0) Estimated GFR (Cockcroft-Gault) 56.6 56.6 Glucose Level 115 mg/dL (70-99) 111 mg/dL (70-99) Calcium Level 8.9 mg/dL (8.5-10.1) 8.3 mg/dL (8.5-10.1) Thyroid Stimulating Hormone (TSH) 3.671 uIU/mL (0.358-3.74) O2 Saturation 99 % (92-99) Arterial Blood pH 7.11 (7.35-7.45) Arterial Blood pCO2 at Patient Temp 59 mmHg (35-46) Arterial Blood pO2 at Patient Temp 199 mmHg (75-108) Arterial Blood HCO3 18 mmol/L (21-28) Arterial Blood Base Excess -11 mmol/L (-3-3) FiO2 60 White Blood Count 14.8 x10^3/uL (4.0-11.0) Red Blood Count 3.46 x10^6/uL (3.50-5.40) Hemoglobin 11.8 g/dL (12.0-15.5) Hematocrit 33.5 % (36.0-47.0) Mean Corpuscular Volume 97 fL (79-100) Mean Corpuscular Hemoglobin 34 pg (25-35) Mean Corpuscular Hemoglobin Concent 35 g/dL (31-37) Red Cell Distribution Width 13.9 % (11.5-14.5) Platelet Count 261 x10^3/uL (140-400) Prothrombin Time 25.3 SEC (11.7-14.0) Prothromb Time International Ratio 2.5 (0.8-1.1) Activated Partial Thromboplast Time 37 SEC (24-38) Lactic Acid Level 5.5 mmol/L (0.4-2.0) Phosphorus Level 6.7 mg/dL (2.6-4.7) Magnesium Level 2.1 mg/dL (1.8-2.4) Test 02/12/17 23:40 02/13/17 03:55 02/13/17 05:50 02/13/17 08:00 Sodium Level 126 mmol/L (136-145) 128 mmol/L (136-145) 127 mmol/L (136-145) Potassium Level 4.3 mmol/L (3.5-5.1) 4.3 mmol/L (3.5-5.1) 5.1 mmol/L (3.5-5.1) Chloride Level 89 mmol/L (98-107) 93 mmol/L (98-107) 92 mmol/L (98-107) Carbon Dioxide Level 26 mmol/L (21-32) 27 mmol/L (21-32) 23 mmol/L (21-32) Anion Gap 11 (6-14) 8 (6-14) 12 (6-14) Blood Urea Nitrogen 22 mg/dL (7-20) 25 mg/dL (7-20) 25 mg/dL (7-20) Creatinine 1.2 mg/dL (0.6-1.0) 1.4 mg/dL (0.6-1.0) 1.2 mg/dL (0.6-1.0) Estimated GFR (Cockcroft-Gault) 56.6 47.4 56.6 Glucose Level 112 mg/dL (70-99) 107 mg/dL (70-99) 92 mg/dL (70-99) Calcium Level 8.3 mg/dL (8.5-10.1) 8.1 mg/dL (8.5-10.1) 7.7 mg/dL (8.5-10.1) Phosphorus Level 3.7 mg/dL (2.6-4.7) 3.7 mg/dL (2.6-4.7) 3.5 mg/dL (2.6-4.7) Magnesium Level 1.8 mg/dL (1.8-2.4) 1.8 mg/dL (1.8-2.4) 2.1 mg/dL (1.8-2.4) Total Bilirubin 2.9 mg/dL (0.2-1.0) Direct Bilirubin 2.0 mg/dL (0.0-0.2) Aspartate Amino Transf (AST/SGOT) 8606 U/L (15-37) Alanine Aminotransferase (ALT/SGPT) 3966 U/L (14-59) Alkaline Phosphatase 89 U/L (46-116) Total Protein 5.3 g/dL (6.4-8.2) Albumin 2.2 g/dL (3.4-5.0) White Blood Count 9.4 x10^3/uL (4.0-11.0) Red Blood Count 3.51 x10^6/uL (3.50-5.40) Hemoglobin 12.1 g/dL (12.0-15.5) Hematocrit 34.1 % (36.0-47.0) Mean Corpuscular Volume 97 fL (79-100) Mean Corpuscular Hemoglobin 35 pg (25-35) Mean Corpuscular Hemoglobin Concent 36 g/dL (31-37) Red Cell Distribution Width 13.1 % (11.5-14.5) Platelet Count 169 x10^3/uL (140-400) Prothrombin Time 26.7 SEC (11.7-14.0) Prothromb Time International Ratio 2.7 (0.8-1.1) Activated Partial Thromboplast Time 31 SEC (24-38) Test 02/13/17 09:15 O2 Saturation 99 % (92-99) Arterial Blood pH 7.33 (7.35-7.45) Arterial Blood pH (Temp corrected) 7.39 Arterial Blood pCO2 at Patient Temp 43 mmHg (35-46) Arterial Blood pCO2 (Temp correct) 36 mmHg Arterial Blood pO2 at Patient Temp 148 mmHg (75-108) Arterial Blood pO2 (Temp corrected) 124 mmHg Arterial Blood HCO3 22 mmol/L (21-28) Arterial Blood Base Excess -4 mmol/L (-3-3) FiO2 50 Allergies: Coded Allergies: divalproex sodium (Verified Allergy, Intermediate, Unknown, 02/12/17) PT NOT VERBALLY RESPONSIVE AT THIS TIME, ALLERGIES LISTED ON PAPERWORK Medications: Current Medications Medications (Trade) Dose Ordered Sig/Bryce Route PRN Reason Start Time Stop Time Status Last Admin Dose Admin Calcium Chloride 1,000 mg 1X ONCE IV 02/12/17 16:00 02/12/17 16:35 DC 02/12/17 15:35 Dextrose (Dextrose 50%-Water Syringe) 25 gm 1X ONCE IV 02/12/17 16:00 02/12/17 16:35 DC 02/12/17 15:33 Sodium Bicarbonate 50 meq 1X ONCE IV 02/12/17 16:00 02/12/17 16:35 DC 02/12/17 15:35 Furosemide (Lasix) 40 mg 1X ONCE IVP 02/12/17 16:30 02/12/17 16:35 DC 02/12/17 16:42 Sodium Chloride 1,000 ml @ 1,000 mls/hr Q1H IV 02/12/17 16:57 02/13/17 07:23 DC 02/12/17 15:50 Fentanyl Citrate 30 ml @ 2.5 mls/hr CONT PRN PRN IV IVF 02/12/17 17:00 02/13/17 04:47 Vecuronium Sophia (Norcuron Bolus) DOSE AT 0.1 mg/kg PRN Q30MIN PRN IV SHIVERING 02/12/17 17:00 02/12/17 19:46 Famotidine (Pepcid) 20 mg BID IVP 02/13/17 09:00 02/13/17 10:11 Aspirin (Aspirin) 300 mg DAILY KS 02/13/17 09:00 02/13/17 10:11 Acetaminophen (Tylenol) 650 mg Q6HRS NG 02/12/17 18:00 02/13/17 17:59 02/13/17 05:51 Sodium Chloride 500 ml @ 500 mls/hr 1X ONCE IV 02/12/17 17:15 02/12/17 18:14 DC 02/12/17 16:30 Sodium Chloride 500 ml @ 500 mls/hr 1X ONCE IV 02/12/17 17:15 02/12/17 18:14 DC 02/12/17 16:50 Sodium Chloride 1,000 ml @ 100 mls/hr Q10H IV 02/12/17 19:00 02/13/17 06:36 Famotidine (Pepcid) 20 mg 1X ONCE PO 02/12/17 17:30 02/12/17 17:34 DC 02/12/17 19:57 Methylprednisolone Sodium Succinate (SOLU-Medrol 40MG VIAL) 100 mg TID IV 02/12/17 18:00 02/13/17 10:12 Sodium Chloride 1,000 ml @ 1,000 mls/hr 1X ONCE IV 02/12/17 18:15 02/12/17 19:14 DC 02/12/17 19:31 Vancomycin HCl (Vanco Per Pharmacy) 1 each PRN DAILY PRN MC SEE COMMENTS 02/12/17 19:15 02/12/17 20:23 Piperacillin Sod/ Tazobactam Sod 3.375 gm/Sodium Chloride 50 ml @ 100 mls/hr Q6HRS IV 02/12/17 19:30 02/13/17 05:51 Vancomycin HCl 1 gm/Sodium Chloride 250 ml @ 250 mls/hr 1X ONCE IV 02/12/17 19:30 02/12/17 20:29 DC 02/12/17 20:00 Sodium Bicarbonate 50 meq 1X ONCE IV 02/12/17 19:30 02/12/17 19:31 DC 02/12/17 19:59 Norepinephrine Bitartrate 250 ml @ 0 mls/hr CONT PRN IV SEE I/O RECORD 02/12/17 19:30 02/12/17 19:30 Sodium Chloride 1,000 ml @ 1,000 mls/hr 1X ONCE IV 02/13/17 04:45 02/13/17 05:44 DC 02/13/17 05:05 Sodium Chloride 1,000 ml @ 1,000 mls/hr 1X ONCE IV 02/13/17 05:30 02/13/17 06:29 DC 02/13/17 05:35 Imaging: Imaging: Head CT 02/12/17 IMPRESSION: 1. No acute intracranial findings. 2. Sinus disease. CXR 02/12/17 Impression: 1. Hyperinflation 2. Diffuse interstitial thickening, increased in the interim. Findings could represent an atypical or interstitial pneumonia. Pulmonary edema could also be considered in the appropriate setting. 3. More focal patchy infiltrate in the right midlung appears to be present. Focal pneumonia is not excluded. Recommend radiographic follow-up to ensure resolution and exclude underlying lesion PE: GEN: intubated HEENT: Atraumatic LUNGS: vent, clear anteriorly HEART: S1S2 ABD: BS quiet, soft EXTREMITY: No edema SKIN: No jaundice NEURO/PSYCH: sedated A/P: A/P: Post-code Coffee-ground emesis in OG -Hgb WNL Abnormal LFTs -additional h/o Hep C -- Will review w/ Dr. Glynn. Continue IV H2 lily for now. JO ANN LARSON Feb 13, 2017 10:27
--- NOTE | 2017-02-13 10:44 | PDOC2 ---
CONSULT Date of Consult Date of Consult DATE: 02/13/17 TIME: 10:31 Reason for Consult Reason for Consult: DARYA, Oliguria Referring Physician Referring Physician: Dr Lockhart Identification/Chief Complaint Chief Complaint s/p CODE BLUE at [place] Problems: Source Source: Chart review History of Present Illness Reason for Visit: CODE BLUE at [place] Current Problem List Problem List Problems Medical Problems: (1) Cardiac arrest Status: Acute (2) Elevated troponin Status: Acute (3) Hyperkalemia Status: Acute (4) Hypoglycemia Status: Acute (5) Hyponatremia Status: Acute Current Medications Current Medications Current Medications Calcium Chloride 1,000 mg 1X ONCE IV Last administered on 02/12/17 15:35; Start 02/12/17 at 16:00; Stop 02/12/17 at 16:35; Status DC Dextrose (Dextrose 50%-Water Syringe) 25 gm 1X ONCE IV Last administered on 15:33; Start 02/12/17 at 16:00; Stop 02/12/17 at 16:35; Status DC Sodium Bicarbonate 50 meq 1X ONCE IV Last administered on 02/12/17 15:35; Start 02/12/17 at 16:00; Stop 02/12/17 at 16:35; Status DC Furosemide (Lasix) 40 mg 1X ONCE IVP Last administered on 02/12/17 16:42; Start 02/12/17 at 16:30; Stop 02/12/17 at 16:35; Status DC Sodium Chloride 1,000 ml @ 1,000 mls/hr Q1H IV Last administered on 02/12/17 15:50; Start 02/12/17 at 16:57; Stop 02/13/17 at 07:23; Status DC Fentanyl Citrate (Fentanyl 2ml Vial) 25 mcg PRN Q30MIN PRN IV SED; Start at 17:00 Lorazepam (Ativan) 1 mg PRN Q30MIN PRN IV SEDATION; Start 02/12/17 at 17:00 Fentanyl Citrate 30 ml @ 2.5 mls/hr CONT PRN PRN IV IVF Last administered on 04:47; Start 02/12/17 at 17:00 Propofol 100 ml @ 0 mls/hr CONT PRN IV SEE I/O RECORD; Start 02/12/17 at 17:00 Vecuronium [place] (Norcuron Bolus) DOSE AT 0.1 mg/kg PRN Q30MIN PRN IV SHIVERING Last administered on 02/12/17 19:46; Start 02/12/17 at 17:00 Meperidine HCl (Demerol) 12.5 mg PRN Q30MIN PRN IV SHIVERING; Start 02/12/17 at 17:00 Multi-Ingred Cream/Lotion/Oil/ Oint (Artificial Tears Eye Oint) 1 silvestre PRN Q6HRS PRN OU 0.5 INCH FOR DRY EYE; Start 02/12/17 at 17:00 Famotidine (Pepcid) 20 mg BID IVP Last administered on 02/13/17 10:11; Start at 09:00 Aspirin (Aspirin) 300 mg DAILY IN Last administered on 02/13/17 10:11; Start at 09:00 Sodium Chloride (Normal Saline Flush) 3 ml QSHIFT PRN IV AFTER MEDS AND BLOOD DRAWS; Start 02/12/17 at 17:00 Acetaminophen (Tylenol) 650 mg Q6HRS NG Last administered on 02/13/17 05:51; Start 02/12/17 at 18:00; Stop 02/13/17 at 17:59 Acetaminophen (Acetaminophen Supp) 650 mg PRN Q6HRS PRN IN MILD PAIN / TEMP; Start 02/13/17 at 17:00 Acetaminophen (Tylenol) 650 mg PRN Q6HRS PRN NG MILD PAIN / TEMP; Start at 17:00 Info 1 ea DAILY PRN MC PER PROTOCOL; Start 02/14/17 at 17:00 Sodium Chloride 500 ml @ 500 mls/hr 1X ONCE IV Last administered on 02/12/17 16:30; Start 02/12/17 at 17:15; Stop 02/12/17 at 18:14; Status DC Sodium Chloride 500 ml @ 500 mls/hr 1X ONCE IV Last administered on 02/12/17 16:50; Start 02/12/17 at 17:15; Stop 02/12/17 at 18:14; Status DC Sodium Chloride 1,000 ml @ 100 mls/hr Q10H IV Last administered on 02/13/17 06 :36; Start 02/12/17 at 19:00 Famotidine (Pepcid) 20 mg 1X ONCE PO Last administered on 02/12/17 19:57; Start 02/12/17 at 17:30; Stop 02/12/17 at 17:34; Status DC Methylprednisolone Sodium Succinate (SOLU-Medrol 40MG VIAL) 100 mg TID IV Last administered on 02/13/17 10:12; Start 02/12/17 at 18:00 Sodium Chloride 1,000 ml @ 1,000 mls/hr 1X ONCE IV Last administered on 19:31; Start 02/12/17 at 18:15; Stop 02/12/17 at 19:14; Status DC Piperacillin Sod/ Tazobactam Sod (Zosyn Per Pharmacy) 1 each PRN DAILY PRN MC SEE COMMENTS; Start 02/12/17 at 19:15 Vancomycin HCl (Vanco Per Pharmacy) 1 each PRN DAILY PRN MC SEE COMMENTS Last administered on 02/12/17 20:23; Start 02/12/17 at 19:15 Piperacillin Sod/ Tazobactam Sod 3.375 gm/Sodium Chloride 50 ml @ 100 mls/hr Q6HRS IV Last administered on 02/13/17 05:51; Start 02/12/17 at 19:30 Vancomycin HCl 1 gm/Sodium Chloride 250 ml @ 250 mls/hr 1X ONCE IV Last administered on 02/12/17 20:00; Start 02/12/17 at 19:30; Stop 02/12/17 at 20:29; Status DC Sodium Bicarbonate 50 meq 1X ONCE IV Last administered on 02/12/17 19:59; Start 02/12/17 at 19:30; Stop 02/12/17 at 19:31; Status DC Norepinephrine Bitartrate 250 ml @ 0 mls/hr CONT PRN IV SEE I/O RECORD Last administered on 02/12/17 19:30; Start 02/12/17 at 19:30 Norepinephrine Bitartrate 250 ml @ As Directed STK-MED ONCE IV ; Start 02/12/17 at 19:25; Stop 02/12/17 at 19:26; Status DC Vancomycin HCl 750 mg/Sodium Chloride 250 ml @ 250 mls/hr Q24H IV ; Start at 20:00 Vancomycin HCl 1 each 1X ONCE MC ; Start 02/14/17 at 19:30; Stop 02/14/17 at 19: 31 Sodium Chloride 1,000 ml @ 1,000 mls/hr 1X ONCE IV Last administered on 05:05; Start 02/13/17 at 04:45; Stop 02/13/17 at 05:44; Status DC Sodium Chloride 1,000 ml @ 1,000 mls/hr 1X ONCE IV Last administered on 05:35; Start 02/13/17 at 05:30; Stop 02/13/17 at 06:29; Status DC Active Scripts Active Reported Latuda (Lurasidone Hcl) 20 Mg Tablet 20 Mg PO AFTRNOON Remeron (Mirtazapine) 15 Mg Tablet 1 Tab PO QHS Oxybutynin Chloride Er (Oxybutynin Chloride) 10 Mg Tab.er.24 1 Tab PO DAILY Multivitamins (Multivitamin) 1 Each Tablet 1 Tab PO DAILY Latuda (Lurasidone Hcl) 20 Mg Tablet 10 Mg PO AFTRNOON Lorazepam 0.5 Mg Tablet 1 Tab PO QEVNG Duoneb 0.5-3(2.5) Mg/3 Ml (Albuterol/Ipratropium) 3 Ml Ampul.neb 3 Ml NEB BID Duoneb 0.5-3(2.5) Mg/3 Ml (Albuterol/Ipratropium) 3 Ml Ampul.neb 3 Ml NEB Q4H PRN Calcium Carbonate 500 Mg Tablet 1,000 Mg PO Q4HRS PRN Nicotine Gum (Nicotine Polacrilex) 4 Mg Gum 4 Mg BC Milk Of Magnesia (Magnesium Hydroxide) 400 Mg/5 Ml Oral.susp 400 Mg PO Q3DAYS PRN Milk Of Magnesia (Magnesium Hydroxide) 400 Mg/5 Ml Oral.susp 400 Mg PO Q3DAYS PRN Lorazepam 1 Mg Tablet 1 Tab PO Q12HR PRN Ibuprofen 400 Mg Tablet 200 Mg PO Q8HRS PRN Cough Drops (Eucalyptus Oil/Menthol) 7 Mg Lozenge 7 Mg MM Q4HRS PRN Tylenol (Acetaminophen) 325 Mg Tablet 650 Mg PO Q4HRS PRN Lovaza ([place]-3 Acid Ethyl Esters) 1 Gm Capsule 1 Cap PO QID Gabapentin 400 Mg Capsule 400 Mg PO QID Lorazepam 1 Mg Tablet 1 Tab PO BID Latuda (Lurasidone Hcl) 60 Mg Tablet 60 Mg PO BID Advair 100-50 Diskus (Fluticasone/Salmeterol) 1 Each Disk.w.dev 1 Puff IH BID Acetaminophen 325 Mg Capsule 650 Mg PO BID Vitamin D (Cholecalciferol (Vitamin D3)) 2,000 Unit Capsule 800 Unit PO DAILY Allergies Allergies: Coded Allergies: divalproex sodium (Verified Allergy, Intermediate, Unknown, 02/12/17) PT NOT VERBALLY RESPONSIVE AT THIS TIME, ALLERGIES LISTED ON PAPERWORK ROS Review of System Unable to be obtained from Pt while on the Vent and sedated undergoing HypoThermia Physical Exam Physical Exam General Appearance: SEdated and intubated on the Vent In no Distress Eyes: Pupils 2mm Conjunctiva Normal EN: No EN Drainage Mucous Memb. moist Neck: no JVD min JVP Supple no Thyromegaly CVS: S1 S2 + Murmur No Gallop No Rub no Edema Resp: no Rales no Rhonchi no Acc. Muscle use GI: BAS +ve NO Bruit Non Tender Non Distended : no CVA tenderness; no Suprapubic Tenderness SKIN: no Rashes Breast Exam deferred Mu.Sk: Adequate passive ROM no Muscle Atrophy Heme: Unable to palpate Obvious LAD no Splenomegaly NEURO: Unable to assess due to sedated and intubated state Psych: Unable to assess due to sedated and intubated state - known undelrying Psych issues as outline in PMH Vital Signs Vital Signs Date Time Temp Pulse Resp B/P (MAP) Pulse Ox O2 Delivery O2 Flow Rate FiO2 02/13/17 09:00 100 Ventilator 02/13/17 05:15 68 25 131/83 (99) 02/12/17 18:18 91.5 91.5 Assessment & Plan DARYA - suspect due to CODE BLUE and possible VMN vs ATN - Current FLuid and E- lyte status does not necessitate emergent need for Dialysis. Check CK Hypotension - IVF (6L so far) given and ongoing. Pressors as ongoing. ^K - POA - resolved with IVF Low Na - IV NS for now ? CKD III - ER NOte suggests Baseline Creat of 1.3 RV Dilatation - ? 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 Consider empiric anti-coagulation Lowish Ousmane - follow MAG and CK H/o Hep C - UA is rel benign so doubt HepC related GN Discussed Plan of Care and prognosis etc. at length with RN and Dr Dumont Labs Labs Laboratory Tests Test 02/12/17 15:24 02/12/17 15:45 02/12/17 15:49 02/12/17 15:50 White Blood Count 12.7 x10^3/uL (4.0-11.0) Red Blood Count 3.69 x10^6/uL (3.50-5.40) Hemoglobin 12.3 g/dL (12.0-15.5) Hematocrit 37.4 % (36.0-47.0) Mean Corpuscular Volume 102 fL (79-100) Mean Corpuscular Hemoglobin 33 pg (25-35) Mean Corpuscular Hemoglobin Concent 33 g/dL (31-37) Red Cell Distribution Width 13.1 % (11.5-14.5) Platelet Count 212 x10^3/uL (140-400) Neutrophils (%) (Auto) 88 % (31-73) Lymphocytes (%) (Auto) 9 % (24-48) Monocytes (%) (Auto) 3 % (0-9) Eosinophils (%) (Auto) 0 % (0-3) Basophils (%) (Auto) 0 % (0-3) Neutrophils # (Auto) 11.1 x10^3uL (1.8-7.7) Lymphocytes # (Auto) 1.1 x10^3/uL (1.0-4.8) Monocytes # (Auto) 0.4 x10^3/uL (0.0-1.1) Eosinophils # (Auto) 0.0 x10^3/uL (0.0-0.7) Basophils # (Auto) 0.1 x10^3/uL (0.0-0.2) Segmented Neutrophils % 37 % (35-66) Band Neutrophils % 44 % (0-9) Lymphocytes % 4 % (24-48) Atypical Lymphocytes % (Manual) 5 % (0-0) Monocytes % 5 % (0-10) Basophils % 1 % (0-3) Metamyelocytes % 4 % (0-0) Toxic Granulation Present Dohle Bodies Present Platelet Estimate Adequate (ADEQUATE) Large Platelets Present Polychromasia Slight Poikilocytosis Slight Anisocytosis Slight Macrocytosis Slight Target Cells Tear Drop Cells Occ Ovalocytes Occ Crenated Cell Present Sodium Level 117 mmol/L (136-145) Potassium Level 7.2 mmol/L (3.5-5.1) Chloride Level 81 mmol/L (98-107) Carbon Dioxide Level 23 mmol/L (21-32) Anion Gap 13 (6-14) Blood Urea Nitrogen 15 mg/dL (7-20) Creatinine 1.0 mg/dL (0.6-1.0) Estimated GFR (Cockcroft-Gault) 69.9 Glucose Level 20 mg/dL (70-99) Lactic Acid Level 12.9 mmol/L (0.4-2.0) Calcium Level 9.6 mg/dL (8.5-10.1) Total Bilirubin 0.8 mg/dL (0.2-1.0) Direct Bilirubin 0.3 mg/dL (0.0-0.2) Aspartate Amino Transf (AST/SGOT) 554 U/L (15-37) Alanine Aminotransferase (ALT/SGPT) 305 U/L (14-59) Alkaline Phosphatase 95 U/L (46-116) Bedside Troponin I 0.78 ng/ml (<0.08) Troponin I Quantitative 1.352 ng/mL (0.000-0.055) SM-Rla-E-Type Natriuretic Peptide 06060 pg/mL (0-124) Total Protein 6.9 g/dL (6.4-8.2) Albumin 2.9 g/dL (3.4-5.0) Lipase 43 U/L (73-393) Glucose (Fingerstick) 209 mg/dL (70-99) Urine Collection Type Unknown Urine Color Yellow Urine Clarity Cloudy Urine pH 5.5 Urine Specific [place] 1.010 Urine Protein 30 mg/dL (NEG-TRACE) Urine Glucose (UA) Negative mg/dL (NEG) Urine Ketones (Stick) Negative mg/dL (NEG) Urine Blood Moderate (NEG) Urine Nitrite Negative (NEG) Urine Bilirubin Negative (NEG) Urine Urobilinogen Dipstick 0.2 mg/dL (0.2 mg/dL) Urine Leukocyte Esterase Trace (NEG) Urine RBC 1-2 /HPF (0-2) Urine WBC 1-4 /HPF (0-4) Urine Squamous Epithelial Cells Occ /LPF Urine Bacteria Many /HPF (0-FEW) Urine Hyaline Casts Occasional /HPF Urine Opiates Screen Neg (NEG) Urine Methadone Screen Neg (NEG) Urine Barbiturates Neg (NEG) Urine Phencyclidine Screen Neg (NEG) Urine Amphetamine/Methamphetamine Neg (NEG) Urine Benzodiazepines Screen Neg (NEG) Urine Cocaine Screen Neg (NEG) Urine Cannabinoids Screen Neg (NEG) Urine Ethyl Alcohol Neg (NEG) O2 Saturation 99 % (92-99) Arterial Blood pH 7.03 (7.35-7.45) Arterial Blood pCO2 at Patient Temp 62 mmHg (35-46) Arterial Blood pO2 at Patient Temp 493 mmHg (75-108) Arterial Blood HCO3 16 mmol/L (21-28) Arterial Blood Base Excess -15 mmol/L (-3-3) Oxyhemoglobin 95.3 % Methemoglobin 0.5 % (0.0-1.9) Carbon Monoxide, Quantitative 3.1 % (0.0-1.9) FiO2 100 Test 02/12/17 16:29 02/12/17 17:19 02/12/17 17:30 02/12/17 19:30 Glucose (Fingerstick) 140 mg/dL (70-99) Sodium Level 118 mmol/L (136-145) 121 mmol/L (136-145) Potassium Level 5.7 mmol/L (3.5-5.1) 5.7 mmol/L (3.5-5.1) Chloride Level 86 mmol/L (98-107) 89 mmol/L (98-107) Carbon Dioxide Level 20 mmol/L (21-32) 25 mmol/L (21-32) Anion Gap 12 (6-14) 7 (6-14) Blood Urea Nitrogen 16 mg/dL (7-20) 17 mg/dL (7-20) Creatinine 1.2 mg/dL (0.6-1.0) 1.2 mg/dL (0.6-1.0) Estimated GFR (Cockcroft-Gault) 56.6 56.6 Glucose Level 115 mg/dL (70-99) 111 mg/dL (70-99) Calcium Level 8.9 mg/dL (8.5-10.1) 8.3 mg/dL (8.5-10.1) Thyroid Stimulating Hormone (TSH) 3.671 uIU/mL (0.358-3.74) O2 Saturation 99 % (92-99) Arterial Blood pH 7.11 (7.35-7.45) Arterial Blood pCO2 at Patient Temp 59 mmHg (35-46) Arterial Blood pO2 at Patient Temp 199 mmHg (75-108) Arterial Blood HCO3 18 mmol/L (21-28) Arterial Blood Base Excess -11 mmol/L (-3-3) FiO2 60 White Blood Count 14.8 x10^3/uL (4.0-11.0) Red Blood Count 3.46 x10^6/uL (3.50-5.40) Hemoglobin 11.8 g/dL (12.0-15.5) Hematocrit 33.5 % (36.0-47.0) Mean Corpuscular Volume 97 fL (79-100) Mean Corpuscular Hemoglobin 34 pg (25-35) Mean Corpuscular Hemoglobin Concent 35 g/dL (31-37) Red Cell Distribution Width 13.9 % (11.5-14.5) Platelet Count 261 x10^3/uL (140-400) Prothrombin Time 25.3 SEC (11.7-14.0) Prothromb Time International Ratio 2.5 (0.8-1.1) Activated Partial Thromboplast Time 37 SEC (24-38) Lactic Acid Level 5.5 mmol/L (0.4-2.0) Phosphorus Level 6.7 mg/dL (2.6-4.7) Magnesium Level 2.1 mg/dL (1.8-2.4) Test 02/12/17 23:40 02/13/17 03:55 02/13/17 05:50 02/13/17 08:00 Sodium Level 126 mmol/L (136-145) 128 mmol/L (136-145) 127 mmol/L (136-145) Potassium Level 4.3 mmol/L (3.5-5.1) 4.3 mmol/L (3.5-5.1) 5.1 mmol/L (3.5-5.1) Chloride Level 89 mmol/L (98-107) 93 mmol/L (98-107) 92 mmol/L (98-107) Carbon Dioxide Level 26 mmol/L (21-32) 27 mmol/L (21-32) 23 mmol/L (21-32) Anion Gap 11 (6-14) 8 (6-14) 12 (6-14) Blood Urea Nitrogen 22 mg/dL (7-20) 25 mg/dL (7-20) 25 mg/dL (7-20) Creatinine 1.2 mg/dL (0.6-1.0) 1.4 mg/dL (0.6-1.0) 1.2 mg/dL (0.6-1.0) Estimated GFR (Cockcroft-Gault) 56.6 47.4 56.6 Glucose Level 112 mg/dL (70-99) 107 mg/dL (70-99) 92 mg/dL (70-99) Calcium Level 8.3 mg/dL (8.5-10.1) 8.1 mg/dL (8.5-10.1) 7.7 mg/dL (8.5-10.1) Phosphorus Level 3.7 mg/dL (2.6-4.7) 3.7 mg/dL (2.6-4.7) 3.5 mg/dL (2.6-4.7) Magnesium Level 1.8 mg/dL (1.8-2.4) 1.8 mg/dL (1.8-2.4) 2.1 mg/dL (1.8-2.4) Total Bilirubin 2.9 mg/dL (0.2-1.0) Direct Bilirubin 2.0 mg/dL (0.0-0.2) Aspartate Amino Transf (AST/SGOT) 8606 U/L (15-37) Alanine Aminotransferase (ALT/SGPT) 3966 U/L (14-59) Alkaline Phosphatase 89 U/L (46-116) Total Protein 5.3 g/dL (6.4-8.2) Albumin 2.2 g/dL (3.4-5.0) White Blood Count 9.4 x10^3/uL (4.0-11.0) Red Blood Count 3.51 x10^6/uL (3.50-5.40) Hemoglobin 12.1 g/dL (12.0-15.5) Hematocrit 34.1 % (36.0-47.0) Mean Corpuscular Volume 97 fL (79-100) Mean Corpuscular Hemoglobin 35 pg (25-35) Mean Corpuscular Hemoglobin Concent 36 g/dL (31-37) Red Cell Distribution Width 13.1 % (11.5-14.5) Platelet Count 169 x10^3/uL (140-400) Prothrombin Time 26.7 SEC (11.7-14.0) Prothromb Time International Ratio 2.7 (0.8-1.1) Activated Partial Thromboplast Time 31 SEC (24-38) Test 02/13/17 09:15 O2 Saturation 99 % (92-99) Arterial Blood pH 7.33 (7.35-7.45) Arterial Blood pH (Temp corrected) 7.39 Arterial Blood pCO2 at Patient Temp 43 mmHg (35-46) Arterial Blood pCO2 (Temp correct) 36 mmHg Arterial Blood pO2 at Patient Temp 148 mmHg (75-108) Arterial Blood pO2 (Temp corrected) 124 mmHg Arterial Blood HCO3 22 mmol/L (21-28) Arterial Blood Base Excess -4 mmol/L (-3-3) FiO2 50 Laboratory Tests Test 02/12/17 15:24 02/12/17 15:45 02/12/17 15:49 02/12/17 15:50 White Blood Count 12.7 x10^3/uL (4.0-11.0) Red Blood Count 3.69 x10^6/uL (3.50-5.40) Hemoglobin 12.3 g/dL (12.0-15.5) Hematocrit 37.4 % (36.0-47.0) Mean Corpuscular Volume 102 fL (79-100) Mean Corpuscular Hemoglobin 33 pg (25-35) Mean Corpuscular Hemoglobin Concent 33 g/dL (31-37) Red Cell Distribution Width 13.1 % (11.5-14.5) Platelet Count 212 x10^3/uL (140-400) Neutrophils (%) (Auto) 88 % (31-73) Lymphocytes (%) (Auto) 9 % (24-48) Monocytes (%) (Auto) 3 % (0-9) Eosinophils (%) (Auto) 0 % (0-3) Basophils (%) (Auto) 0 % (0-3) Neutrophils # (Auto) 11.1 x10^3uL (1.8-7.7) Lymphocytes # (Auto) 1.1 x10^3/uL (1.0-4.8) Monocytes # (Auto) 0.4 x10^3/uL (0.0-1.1) Eosinophils # (Auto) 0.0 x10^3/uL (0.0-0.7) Basophils # (Auto) 0.1 x10^3/uL (0.0-0.2) Segmented Neutrophils % 37 % (35-66) Band Neutrophils % 44 % (0-9) Lymphocytes % 4 % (24-48) Atypical Lymphocytes % (Manual) 5 % (0-0) Monocytes % 5 % (0-10) Basophils % 1 % (0-3) Metamyelocytes % 4 % (0-0) Toxic Granulation Present Dohle Bodies Present Platelet Estimate Adequate (ADEQUATE) Large Platelets Present Polychromasia Slight Poikilocytosis Slight Anisocytosis Slight Macrocytosis Slight Target Cells Tear Drop Cells Occ Ovalocytes Occ Crenated Cell Present Sodium Level 117 mmol/L (136-145) Potassium Level 7.2 mmol/L (3.5-5.1) Chloride Level 81 mmol/L (98-107) Carbon Dioxide Level 23 mmol/L (21-32) Anion Gap 13 (6-14) Blood Urea Nitrogen 15 mg/dL (7-20) Creatinine 1.0 mg/dL (0.6-1.0) Estimated GFR (Cockcroft-Gault) 69.9 Glucose Level 20 mg/dL (70-99) Lactic Acid Level 12.9 mmol/L (0.4-2.0) Calcium Level 9.6 mg/dL (8.5-10.1) Total Bilirubin 0.8 mg/dL (0.2-1.0) Direct Bilirubin 0.3 mg/dL (0.0-0.2) Aspartate Amino Transf (AST/SGOT) 554 U/L (15-37) Alanine Aminotransferase (ALT/SGPT) 305 U/L (14-59) Alkaline Phosphatase 95 U/L (46-116) Bedside Troponin I 0.78 ng/ml (<0.08) Troponin I Quantitative 1.352 ng/mL (0.000-0.055) ZW-Tyd-S-Type Natriuretic Peptide 63837 pg/mL (0-124) Total Protein 6.9 g/dL (6.4-8.2) Albumin 2.9 g/dL (3.4-5.0) Lipase 43 U/L (73-393) Glucose (Fingerstick) 209 mg/dL (70-99) Urine Collection Type Unknown Urine Color Yellow Urine Clarity Cloudy Urine pH 5.5 Urine Specific [place] 1.010 Urine Protein 30 mg/dL (NEG-TRACE) Urine Glucose (UA) Negative mg/dL (NEG) Urine Ketones (Stick) Negative mg/dL (NEG) Urine Blood Moderate (NEG) Urine Nitrite Negative (NEG) Urine Bilirubin Negative (NEG) Urine Urobilinogen Dipstick 0.2 mg/dL (0.2 mg/dL) Urine Leukocyte Esterase Trace (NEG) Urine RBC 1-2 /HPF (0-2) Urine WBC 1-4 /HPF (0-4) Urine Squamous Epithelial Cells Occ /LPF Urine Bacteria Many /HPF (0-FEW) Urine Hyaline Casts Occasional /HPF Urine Opiates Screen Neg (NEG) Urine Methadone Screen Neg (NEG) Urine Barbiturates Neg (NEG) Urine Phencyclidine Screen Neg (NEG) Urine Amphetamine/Methamphetamine Neg (NEG) Urine Benzodiazepines Screen Neg (NEG) Urine Cocaine Screen Neg (NEG) Urine Cannabinoids Screen Neg (NEG) Urine Ethyl Alcohol Neg (NEG) O2 Saturation 99 % (92-99) Arterial Blood pH 7.03 (7.35-7.45) Arterial Blood pCO2 at Patient Temp 62 mmHg (35-46) Arterial Blood pO2 at Patient Temp 493 mmHg (75-108) Arterial Blood HCO3 16 mmol/L (21-28) Arterial Blood Base Excess -15 mmol/L (-3-3) Oxyhemoglobin 95.3 % Methemoglobin 0.5 % (0.0-1.9) Carbon Monoxide, Quantitative 3.1 % (0.0-1.9) FiO2 100 Test 02/12/17 16:29 02/12/17 17:19 02/12/17 17:30 02/12/17 19:30 Glucose (Fingerstick) 140 mg/dL (70-99) Sodium Level 118 mmol/L (136-145) 121 mmol/L (136-145) Potassium Level 5.7 mmol/L (3.5-5.1) 5.7 mmol/L (3.5-5.1) Chloride Level 86 mmol/L (98-107) 89 mmol/L (98-107) Carbon Dioxide Level 20 mmol/L (21-32) 25 mmol/L (21-32) Anion Gap 12 (6-14) 7 (6-14) Blood Urea Nitrogen 16 mg/dL (7-20) 17 mg/dL (7-20) Creatinine 1.2 mg/dL (0.6-1.0) 1.2 mg/dL (0.6-1.0) Estimated GFR (Cockcroft-Gault) 56.6 56.6 Glucose Level 115 mg/dL (70-99) 111 mg/dL (70-99) Calcium Level 8.9 mg/dL (8.5-10.1) 8.3 mg/dL (8.5-10.1) Thyroid Stimulating Hormone (TSH) 3.671 uIU/mL (0.358-3.74) O2 Saturation 99 % (92-99) Arterial Blood pH 7.11 (7.35-7.45) Arterial Blood pCO2 at Patient Temp 59 mmHg (35-46) Arterial Blood pO2 at Patient Temp 199 mmHg (75-108) Arterial Blood HCO3 18 mmol/L (21-28) Arterial Blood Base Excess -11 mmol/L (-3-3) FiO2 60 White Blood Count 14.8 x10^3/uL (4.0-11.0) Red Blood Count 3.46 x10^6/uL (3.50-5.40) Hemoglobin 11.8 g/dL (12.0-15.5) Hematocrit 33.5 % (36.0-47.0) Mean Corpuscular Volume 97 fL (79-100) Mean Corpuscular Hemoglobin 34 pg (25-35) Mean Corpuscular Hemoglobin Concent 35 g/dL (31-37) Red Cell Distribution Width 13.9 % (11.5-14.5) Platelet Count 261 x10^3/uL (140-400) Prothrombin Time 25.3 SEC (11.7-14.0) Prothromb Time International Ratio 2.5 (0.8-1.1) Activated Partial Thromboplast Time 37 SEC (24-38) Lactic Acid Level 5.5 mmol/L (0.4-2.0) Phosphorus Level 6.7 mg/dL (2.6-4.7) Magnesium Level 2.1 mg/dL (1.8-2.4) Test 02/12/17 23:40 02/13/17 03:55 02/13/17 05:50 02/13/17 08:00 Sodium Level 126 mmol/L (136-145) 128 mmol/L (136-145) 127 mmol/L (136-145) Potassium Level 4.3 mmol/L (3.5-5.1) 4.3 mmol/L (3.5-5.1) 5.1 mmol/L (3.5-5.1) Chloride Level 89 mmol/L (98-107) 93 mmol/L (98-107) 92 mmol/L (98-107) Carbon Dioxide Level 26 mmol/L (21-32) 27 mmol/L (21-32) 23 mmol/L (21-32) Anion Gap 11 (6-14) 8 (6-14) 12 (6-14) Blood Urea Nitrogen 22 mg/dL (7-20) 25 mg/dL (7-20) 25 mg/dL (7-20) Creatinine 1.2 mg/dL (0.6-1.0) 1.4 mg/dL (0.6-1.0) 1.2 mg/dL (0.6-1.0) Estimated GFR (Cockcroft-Gault) 56.6 47.4 56.6 Glucose Level 112 mg/dL (70-99) 107 mg/dL (70-99) 92 mg/dL (70-99) Calcium Level 8.3 mg/dL (8.5-10.1) 8.1 mg/dL (8.5-10.1) 7.7 mg/dL (8.5-10.1) Phosphorus Level 3.7 mg/dL (2.6-4.7) 3.7 mg/dL (2.6-4.7) 3.5 mg/dL (2.6-4.7) Magnesium Level 1.8 mg/dL (1.8-2.4) 1.8 mg/dL (1.8-2.4) 2.1 mg/dL (1.8-2.4) Total Bilirubin 2.9 mg/dL (0.2-1.0) Direct Bilirubin 2.0 mg/dL (0.0-0.2) Aspartate Amino Transf (AST/SGOT) 8606 U/L (15-37) Alanine Aminotransferase (ALT/SGPT) 3966 U/L (14-59) Alkaline Phosphatase 89 U/L (46-116) Total Protein 5.3 g/dL (6.4-8.2) Albumin 2.2 g/dL (3.4-5.0) White Blood Count 9.4 x10^3/uL (4.0-11.0) Red Blood Count 3.51 x10^6/uL (3.50-5.40) Hemoglobin 12.1 g/dL (12.0-15.5) Hematocrit 34.1 % (36.0-47.0) Mean Corpuscular Volume 97 fL (79-100) Mean Corpuscular Hemoglobin 35 pg (25-35) Mean Corpuscular Hemoglobin Concent 36 g/dL (31-37) Red Cell Distribution Width 13.1 % (11.5-14.5) Platelet Count 169 x10^3/uL (140-400) Prothrombin Time 26.7 SEC (11.7-14.0) Prothromb Time International Ratio 2.7 (0.8-1.1) Activated Partial Thromboplast Time 31 SEC (24-38) Test 02/13/17 09:15 O2 Saturation 99 % (92-99) Arterial Blood pH 7.33 (7.35-7.45) Arterial Blood pH (Temp corrected) 7.39 Arterial Blood pCO2 at Patient Temp 43 mmHg (35-46) Arterial Blood pCO2 (Temp correct) 36 mmHg Arterial Blood pO2 at Patient Temp 148 mmHg (75-108) Arterial Blood pO2 (Temp corrected) 124 mmHg Arterial Blood HCO3 22 mmol/L (21-28) Arterial Blood Base Excess -4 mmol/L (-3-3) FiO2 50 Images Images 1. Hyperinflation 2. Diffuse interstitial thickening, increased in the interim. Findings could represent an atypical or interstitial pneumonia. Pulmonary edema could also be considered in the appropriate setting. 3. More focal patchy infiltrate in the right midlung appears to be present. Focal pneumonia is not excluded. Recommend radiographic follow-up to ensure resolution and exclude underlying lesion ELIAZAR GREER MD Feb 13, 2017 10:44
[2017-02-13] MEDS ORDERED: MAGNESIUM SULFATE 2GM 50 ML IV PRN (10:45)
--- NOTE | 2017-02-13 11:07 | PDOC ---
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 LAbs better, NA better, lactate down to 5. K lower, WBC 9.4, Hgb 12, ASt and ALT in the hundreds in the background of arrest Trace leuk esterase, bacteria on urine TRiggers sepsis criteria PLAN: GEt ID trigger sepsis - UTI on pressor Follow renal recs Follow urine cx and BC NO nephrotoxins and K supplements Hypothermia protocol CARds also involved\ CUrrently on levo Further recs pending course CC 31 Dw [employer] Vitals Vitals Vital Signs Date Time Temp Pulse Resp B/P (MAP) Pulse Ox O2 Delivery O2 Flow Rate FiO2 02/13/17 09:00 100 Ventilator 02/13/17 05:15 68 25 131/83 (99) 02/12/17 18:18 91.5 91.5 Physical Exam General: Other (intubated) Heart: Regular rate Lungs: Other Abdomen: Normal bowel sounds Extremities: No clubbing Skin: No rashes, No breakdown Labs LABS Laboratory Tests Test 02/12/17 15:24 02/12/17 15:45 02/12/17 15:49 02/12/17 15:50 White Blood Count 12.7 x10^3/uL (4.0-11.0) Red Blood Count 3.69 x10^6/uL (3.50-5.40) Hemoglobin 12.3 g/dL (12.0-15.5) Hematocrit 37.4 % (36.0-47.0) Mean Corpuscular Volume 102 fL (79-100) Mean Corpuscular Hemoglobin 33 pg (25-35) Mean Corpuscular Hemoglobin Concent 33 g/dL (31-37) Red Cell Distribution Width 13.1 % (11.5-14.5) Platelet Count 212 x10^3/uL (140-400) Neutrophils (%) (Auto) 88 % (31-73) Lymphocytes (%) (Auto) 9 % (24-48) Monocytes (%) (Auto) 3 % (0-9) Eosinophils (%) (Auto) 0 % (0-3) Basophils (%) (Auto) 0 % (0-3) Neutrophils # (Auto) 11.1 x10^3uL (1.8-7.7) Lymphocytes # (Auto) 1.1 x10^3/uL (1.0-4.8) Monocytes # (Auto) 0.4 x10^3/uL (0.0-1.1) Eosinophils # (Auto) 0.0 x10^3/uL (0.0-0.7) Basophils # (Auto) 0.1 x10^3/uL (0.0-0.2) Segmented Neutrophils % 37 % (35-66) Band Neutrophils % 44 % (0-9) Lymphocytes % 4 % (24-48) Atypical Lymphocytes % (Manual) 5 % (0-0) Monocytes % 5 % (0-10) Basophils % 1 % (0-3) Metamyelocytes % 4 % (0-0) Toxic Granulation Present Dohle Bodies Present Platelet Estimate Adequate (ADEQUATE) Large Platelets Present Polychromasia Slight Poikilocytosis Slight Anisocytosis Slight Macrocytosis Slight Target Cells Tear Drop Cells Occ Ovalocytes Occ Crenated Cell Present Sodium Level 117 mmol/L (136-145) Potassium Level 7.2 mmol/L (3.5-5.1) Chloride Level 81 mmol/L (98-107) Carbon Dioxide Level 23 mmol/L (21-32) Anion Gap 13 (6-14) Blood Urea Nitrogen 15 mg/dL (7-20) Creatinine 1.0 mg/dL (0.6-1.0) Estimated GFR (Cockcroft-Gault) 69.9 Glucose Level 20 mg/dL (70-99) Lactic Acid Level 12.9 mmol/L (0.4-2.0) Calcium Level 9.6 mg/dL (8.5-10.1) Total Bilirubin 0.8 mg/dL (0.2-1.0) Direct Bilirubin 0.3 mg/dL (0.0-0.2) Aspartate Amino Transf (AST/SGOT) 554 U/L (15-37) Alanine Aminotransferase (ALT/SGPT) 305 U/L (14-59) Alkaline Phosphatase 95 U/L (46-116) Bedside Troponin I 0.78 ng/ml (<0.08) Troponin I Quantitative 1.352 ng/mL (0.000-0.055) VZ-Nkj-C-Type Natriuretic Peptide 27932 pg/mL (0-124) Total Protein 6.9 g/dL (6.4-8.2) Albumin 2.9 g/dL (3.4-5.0) Lipase 43 U/L (73-393) Glucose (Fingerstick) 209 mg/dL (70-99) Urine Collection Type Unknown Urine Color Yellow Urine Clarity Cloudy Urine pH 5.5 Urine Specific Tyner 1.010 Urine Protein 30 mg/dL (NEG-TRACE) Urine Glucose (UA) Negative mg/dL (NEG) Urine Ketones (Stick) Negative mg/dL (NEG) Urine Blood Moderate (NEG) Urine Nitrite Negative (NEG) Urine Bilirubin Negative (NEG) Urine Urobilinogen Dipstick 0.2 mg/dL (0.2 mg/dL) Urine Leukocyte Esterase Trace (NEG) Urine RBC 1-2 /HPF (0-2) Urine WBC 1-4 /HPF (0-4) Urine Squamous Epithelial Cells Occ /LPF Urine Bacteria Many /HPF (0-FEW) Urine Hyaline Casts Occasional /HPF Urine Opiates Screen Neg (NEG) Urine Methadone Screen Neg (NEG) Urine Barbiturates Neg (NEG) Urine Phencyclidine Screen Neg (NEG) Urine Amphetamine/Methamphetamine Neg (NEG) Urine Benzodiazepines Screen Neg (NEG) Urine Cocaine Screen Neg (NEG) Urine Cannabinoids Screen Neg (NEG) Urine Ethyl Alcohol Neg (NEG) O2 Saturation 99 % (92-99) Arterial Blood pH 7.03 (7.35-7.45) Arterial Blood pCO2 at Patient Temp 62 mmHg (35-46) Arterial Blood pO2 at Patient Temp 493 mmHg (75-108) Arterial Blood HCO3 16 mmol/L (21-28) Arterial Blood Base Excess -15 mmol/L (-3-3) Oxyhemoglobin 95.3 % Methemoglobin 0.5 % (0.0-1.9) Carbon Monoxide, Quantitative 3.1 % (0.0-1.9) FiO2 100 Test 02/12/17 16:29 02/12/17 17:19 02/12/17 17:30 02/12/17 19:30 Glucose (Fingerstick) 140 mg/dL (70-99) Sodium Level 118 mmol/L (136-145) 121 mmol/L (136-145) Potassium Level 5.7 mmol/L (3.5-5.1) 5.7 mmol/L (3.5-5.1) Chloride Level 86 mmol/L (98-107) 89 mmol/L (98-107) Carbon Dioxide Level 20 mmol/L (21-32) 25 mmol/L (21-32) Anion Gap 12 (6-14) 7 (6-14) Blood Urea Nitrogen 16 mg/dL (7-20) 17 mg/dL (7-20) Creatinine 1.2 mg/dL (0.6-1.0) 1.2 mg/dL (0.6-1.0) Estimated GFR (Cockcroft-Gault) 56.6 56.6 Glucose Level 115 mg/dL (70-99) 111 mg/dL (70-99) Calcium Level 8.9 mg/dL (8.5-10.1) 8.3 mg/dL (8.5-10.1) Thyroid Stimulating Hormone (TSH) 3.671 uIU/mL (0.358-3.74) O2 Saturation 99 % (92-99) Arterial Blood pH 7.11 (7.35-7.45) Arterial Blood pCO2 at Patient Temp 59 mmHg (35-46) Arterial Blood pO2 at Patient Temp 199 mmHg (75-108) Arterial Blood HCO3 18 mmol/L (21-28) Arterial Blood Base Excess -11 mmol/L (-3-3) FiO2 60 White Blood Count 14.8 x10^3/uL (4.0-11.0) Red Blood Count 3.46 x10^6/uL (3.50-5.40) Hemoglobin 11.8 g/dL (12.0-15.5) Hematocrit 33.5 % (36.0-47.0) Mean Corpuscular Volume 97 fL (79-100) Mean Corpuscular Hemoglobin 34 pg (25-35) Mean Corpuscular Hemoglobin Concent 35 g/dL (31-37) Red Cell Distribution Width 13.9 % (11.5-14.5) Platelet Count 261 x10^3/uL (140-400) Prothrombin Time 25.3 SEC (11.7-14.0) Prothromb Time International Ratio 2.5 (0.8-1.1) Activated Partial Thromboplast Time 37 SEC (24-38) Lactic Acid Level 5.5 mmol/L (0.4-2.0) Phosphorus Level 6.7 mg/dL (2.6-4.7) Magnesium Level 2.1 mg/dL (1.8-2.4) Test 02/12/17 23:40 02/13/17 03:55 02/13/17 05:50 02/13/17 08:00 Sodium Level 126 mmol/L (136-145) 128 mmol/L (136-145) 127 mmol/L (136-145) Potassium Level 4.3 mmol/L (3.5-5.1) 4.3 mmol/L (3.5-5.1) 5.1 mmol/L (3.5-5.1) Chloride Level 89 mmol/L (98-107) 93 mmol/L (98-107) 92 mmol/L (98-107) Carbon Dioxide Level 26 mmol/L (21-32) 27 mmol/L (21-32) 23 mmol/L (21-32) Anion Gap 11 (6-14) 8 (6-14) 12 (6-14) Blood Urea Nitrogen 22 mg/dL (7-20) 25 mg/dL (7-20) 25 mg/dL (7-20) Creatinine 1.2 mg/dL (0.6-1.0) 1.4 mg/dL (0.6-1.0) 1.2 mg/dL (0.6-1.0) Estimated GFR (Cockcroft-Gault) 56.6 47.4 56.6 Glucose Level 112 mg/dL (70-99) 107 mg/dL (70-99) 92 mg/dL (70-99) Calcium Level 8.3 mg/dL (8.5-10.1) 8.1 mg/dL (8.5-10.1) 7.7 mg/dL (8.5-10.1) Phosphorus Level 3.7 mg/dL (2.6-4.7) 3.7 mg/dL (2.6-4.7) 3.5 mg/dL (2.6-4.7) Magnesium Level 1.8 mg/dL (1.8-2.4) 1.8 mg/dL (1.8-2.4) 2.1 mg/dL (1.8-2.4) Total Bilirubin 2.9 mg/dL (0.2-1.0) Direct Bilirubin 2.0 mg/dL (0.0-0.2) Aspartate Amino Transf (AST/SGOT) 8606 U/L (15-37) Alanine Aminotransferase (ALT/SGPT) 3966 U/L (14-59) Alkaline Phosphatase 89 U/L (46-116) Total Protein 5.3 g/dL (6.4-8.2) Albumin 2.2 g/dL (3.4-5.0) White Blood Count 9.4 x10^3/uL (4.0-11.0) Red Blood Count 3.51 x10^6/uL (3.50-5.40) Hemoglobin 12.1 g/dL (12.0-15.5) Hematocrit 34.1 % (36.0-47.0) Mean Corpuscular Volume 97 fL (79-100) Mean Corpuscular Hemoglobin 35 pg (25-35) Mean Corpuscular Hemoglobin Concent 36 g/dL (31-37) Red Cell Distribution Width 13.1 % (11.5-14.5) Platelet Count 169 x10^3/uL (140-400) Prothrombin Time 26.7 SEC (11.7-14.0) Prothromb Time International Ratio 2.7 (0.8-1.1) Activated Partial Thromboplast Time 31 SEC (24-38) Test 02/13/17 09:15 O2 Saturation 99 % (92-99) Arterial Blood pH 7.33 (7.35-7.45) Arterial Blood pH (Temp corrected) 7.39 Arterial Blood pCO2 at Patient Temp 43 mmHg (35-46) Arterial Blood pCO2 (Temp correct) 36 mmHg Arterial Blood pO2 at Patient Temp 148 mmHg (75-108) Arterial Blood pO2 (Temp corrected) 124 mmHg Arterial Blood HCO3 22 mmol/L (21-28) Arterial Blood Base Excess -4 mmol/L (-3-3) FiO2 50 Assessment and Plan Assessmemt and Plan Problems Medical Problems: (1) Cardiac arrest Status: Acute (2) Elevated troponin Status: Acute (3) Hyperkalemia Status: Acute (4) Hypoglycemia Status: Acute (5) Hyponatremia Status: Acute Problems: Comment Review of Relevant I have reviewed the following items reji (where applicable) has been applied. Labs Laboratory Tests Test 02/12/17 15:24 02/12/17 15:45 02/12/17 15:49 02/12/17 15:50 White Blood Count 12.7 x10^3/uL (4.0-11.0) Red Blood Count 3.69 x10^6/uL (3.50-5.40) Hemoglobin 12.3 g/dL (12.0-15.5) Hematocrit 37.4 % (36.0-47.0) Mean Corpuscular Volume 102 fL (79-100) Mean Corpuscular Hemoglobin 33 pg (25-35) Mean Corpuscular Hemoglobin Concent 33 g/dL (31-37) Red Cell Distribution Width 13.1 % (11.5-14.5) Platelet Count 212 x10^3/uL (140-400) Neutrophils (%) (Auto) 88 % (31-73) Lymphocytes (%) (Auto) 9 % (24-48) Monocytes (%) (Auto) 3 % (0-9) Eosinophils (%) (Auto) 0 % (0-3) Basophils (%) (Auto) 0 % (0-3) Neutrophils # (Auto) 11.1 x10^3uL (1.8-7.7) Lymphocytes # (Auto) 1.1 x10^3/uL (1.0-4.8) Monocytes # (Auto) 0.4 x10^3/uL (0.0-1.1) Eosinophils # (Auto) 0.0 x10^3/uL (0.0-0.7) Basophils # (Auto) 0.1 x10^3/uL (0.0-0.2) Segmented Neutrophils % 37 % (35-66) Band Neutrophils % 44 % (0-9) Lymphocytes % 4 % (24-48) Atypical Lymphocytes % (Manual) 5 % (0-0) Monocytes % 5 % (0-10) Basophils % 1 % (0-3) Metamyelocytes % 4 % (0-0) Toxic Granulation Present Dohle Bodies Present Platelet Estimate Adequate (ADEQUATE) Large Platelets Present Polychromasia Slight Poikilocytosis Slight Anisocytosis Slight Macrocytosis Slight Target Cells Tear Drop Cells Occ Ovalocytes Occ Crenated Cell Present Sodium Level 117 mmol/L (136-145) Potassium Level 7.2 mmol/L (3.5-5.1) Chloride Level 81 mmol/L (98-107) Carbon Dioxide Level 23 mmol/L (21-32) Anion Gap 13 (6-14) Blood Urea Nitrogen 15 mg/dL (7-20) Creatinine 1.0 mg/dL (0.6-1.0) Estimated GFR (Cockcroft-Gault) 69.9 Glucose Level 20 mg/dL (70-99) Lactic Acid Level 12.9 mmol/L (0.4-2.0) Calcium Level 9.6 mg/dL (8.5-10.1) Total Bilirubin 0.8 mg/dL (0.2-1.0) Direct Bilirubin 0.3 mg/dL (0.0-0.2) Aspartate Amino Transf (AST/SGOT) 554 U/L (15-37) Alanine Aminotransferase (ALT/SGPT) 305 U/L (14-59) Alkaline Phosphatase 95 U/L (46-116) Bedside Troponin I 0.78 ng/ml (<0.08) Troponin I Quantitative 1.352 ng/mL (0.000-0.055) NL-Byc-Y-Type Natriuretic Peptide 80045 pg/mL (0-124) Total Protein 6.9 g/dL (6.4-8.2) Albumin 2.9 g/dL (3.4-5.0) Lipase 43 U/L (73-393) Glucose (Fingerstick) 209 mg/dL (70-99) Urine Collection Type Unknown Urine Color Yellow Urine Clarity Cloudy Urine pH 5.5 Urine Specific Tyner 1.010 Urine Protein 30 mg/dL (NEG-TRACE) Urine Glucose (UA) Negative mg/dL (NEG) Urine Ketones (Stick) Negative mg/dL (NEG) Urine Blood Moderate (NEG) Urine Nitrite Negative (NEG) Urine Bilirubin Negative (NEG) Urine Urobilinogen Dipstick 0.2 mg/dL (0.2 mg/dL) Urine Leukocyte Esterase Trace (NEG) Urine RBC 1-2 /HPF (0-2) Urine WBC 1-4 /HPF (0-4) Urine Squamous Epithelial Cells Occ /LPF Urine Bacteria Many /HPF (0-FEW) Urine Hyaline Casts Occasional /HPF Urine Opiates Screen Neg (NEG) Urine Methadone Screen Neg (NEG) Urine Barbiturates Neg (NEG) Urine Phencyclidine Screen Neg (NEG) Urine Amphetamine/Methamphetamine Neg (NEG) Urine Benzodiazepines Screen Neg (NEG) Urine Cocaine Screen Neg (NEG) Urine Cannabinoids Screen Neg (NEG) Urine Ethyl Alcohol Neg (NEG) O2 Saturation 99 % (92-99) Arterial Blood pH 7.03 (7.35-7.45) Arterial Blood pCO2 at Patient Temp 62 mmHg (35-46) Arterial Blood pO2 at Patient Temp 493 mmHg (75-108) Arterial Blood HCO3 16 mmol/L (21-28) Arterial Blood Base Excess -15 mmol/L (-3-3) Oxyhemoglobin 95.3 % Methemoglobin 0.5 % (0.0-1.9) Carbon Monoxide, Quantitative 3.1 % (0.0-1.9) FiO2 100 Test 02/12/17 16:29 02/12/17 17:19 02/12/17 17:30 02/12/17 19:30 Glucose (Fingerstick) 140 mg/dL (70-99) Sodium Level 118 mmol/L (136-145) 121 mmol/L (136-145) Potassium Level 5.7 mmol/L (3.5-5.1) 5.7 mmol/L (3.5-5.1) Chloride Level 86 mmol/L (98-107) 89 mmol/L (98-107) Carbon Dioxide Level 20 mmol/L (21-32) 25 mmol/L (21-32) Anion Gap 12 (6-14) 7 (6-14) Blood Urea Nitrogen 16 mg/dL (7-20) 17 mg/dL (7-20) Creatinine 1.2 mg/dL (0.6-1.0) 1.2 mg/dL (0.6-1.0) Estimated GFR (Cockcroft-Gault) 56.6 56.6 Glucose Level 115 mg/dL (70-99) 111 mg/dL (70-99) Calcium Level 8.9 mg/dL (8.5-10.1) 8.3 mg/dL (8.5-10.1) Thyroid Stimulating Hormone (TSH) 3.671 uIU/mL (0.358-3.74) O2 Saturation 99 % (92-99) Arterial Blood pH 7.11 (7.35-7.45) Arterial Blood pCO2 at Patient Temp 59 mmHg (35-46) Arterial Blood pO2 at Patient Temp 199 mmHg (75-108) Arterial Blood HCO3 18 mmol/L (21-28) Arterial Blood Base Excess -11 mmol/L (-3-3) FiO2 60 White Blood Count 14.8 x10^3/uL (4.0-11.0) Red Blood Count 3.46 x10^6/uL (3.50-5.40) Hemoglobin 11.8 g/dL (12.0-15.5) Hematocrit 33.5 % (36.0-47.0) Mean Corpuscular Volume 97 fL (79-100) Mean Corpuscular Hemoglobin 34 pg (25-35) Mean Corpuscular Hemoglobin Concent 35 g/dL (31-37) Red Cell Distribution Width 13.9 % (11.5-14.5) Platelet Count 261 x10^3/uL (140-400) Prothrombin Time 25.3 SEC (11.7-14.0) Prothromb Time International Ratio 2.5 (0.8-1.1) Activated Partial Thromboplast Time 37 SEC (24-38) Lactic Acid Level 5.5 mmol/L (0.4-2.0) Phosphorus Level 6.7 mg/dL (2.6-4.7) Magnesium Level 2.1 mg/dL (1.8-2.4) Test 02/12/17 23:40 02/13/17 03:55 02/13/17 05:50 02/13/17 08:00 Sodium Level 126 mmol/L (136-145) 128 mmol/L (136-145) 127 mmol/L (136-145) Potassium Level 4.3 mmol/L (3.5-5.1) 4.3 mmol/L (3.5-5.1) 5.1 mmol/L (3.5-5.1) Chloride Level 89 mmol/L (98-107) 93 mmol/L (98-107) 92 mmol/L (98-107) Carbon Dioxide Level 26 mmol/L (21-32) 27 mmol/L (21-32) 23 mmol/L (21-32) Anion Gap 11 (6-14) 8 (6-14) 12 (6-14) Blood Urea Nitrogen 22 mg/dL (7-20) 25 mg/dL (7-20) 25 mg/dL (7-20) Creatinine 1.2 mg/dL (0.6-1.0) 1.4 mg/dL (0.6-1.0) 1.2 mg/dL (0.6-1.0) Estimated GFR (Cockcroft-Gault) 56.6 47.4 56.6 Glucose Level 112 mg/dL (70-99) 107 mg/dL (70-99) 92 mg/dL (70-99) Calcium Level 8.3 mg/dL (8.5-10.1) 8.1 mg/dL (8.5-10.1) 7.7 mg/dL (8.5-10.1) Phosphorus Level 3.7 mg/dL (2.6-4.7) 3.7 mg/dL (2.6-4.7) 3.5 mg/dL (2.6-4.7) Magnesium Level 1.8 mg/dL (1.8-2.4) 1.8 mg/dL (1.8-2.4) 2.1 mg/dL (1.8-2.4) Total Bilirubin 2.9 mg/dL (0.2-1.0) Direct Bilirubin 2.0 mg/dL (0.0-0.2) Aspartate Amino Transf (AST/SGOT) 8606 U/L (15-37) Alanine Aminotransferase (ALT/SGPT) 3966 U/L (14-59) Alkaline Phosphatase 89 U/L (46-116) Total Protein 5.3 g/dL (6.4-8.2) Albumin 2.2 g/dL (3.4-5.0) White Blood Count 9.4 x10^3/uL (4.0-11.0) Red Blood Count 3.51 x10^6/uL (3.50-5.40) Hemoglobin 12.1 g/dL (12.0-15.5) Hematocrit 34.1 % (36.0-47.0) Mean Corpuscular Volume 97 fL (79-100) Mean Corpuscular Hemoglobin 35 pg (25-35) Mean Corpuscular Hemoglobin Concent 36 g/dL (31-37) Red Cell Distribution Width 13.1 % (11.5-14.5) Platelet Count 169 x10^3/uL (140-400) Prothrombin Time 26.7 SEC (11.7-14.0) Prothromb Time International Ratio 2.7 (0.8-1.1) Activated Partial Thromboplast Time 31 SEC (24-38) Test 02/13/17 09:15 O2 Saturation 99 % (92-99) Arterial Blood pH 7.33 (7.35-7.45) Arterial Blood pH (Temp corrected) 7.39 Arterial Blood pCO2 at Patient Temp 43 mmHg (35-46) Arterial Blood pCO2 (Temp correct) 36 mmHg Arterial Blood pO2 at Patient Temp 148 mmHg (75-108) Arterial Blood pO2 (Temp corrected) 124 mmHg Arterial Blood HCO3 22 mmol/L (21-28) Arterial Blood Base Excess -4 mmol/L (-3-3) FiO2 50 Laboratory Tests Test 02/12/17 15:24 02/12/17 15:45 02/12/17 15:49 02/12/17 15:50 White Blood Count 12.7 x10^3/uL (4.0-11.0) Red Blood Count 3.69 x10^6/uL (3.50-5.40) Hemoglobin 12.3 g/dL (12.0-15.5) Hematocrit 37.4 % (36.0-47.0) Mean Corpuscular Volume 102 fL (79-100) Mean Corpuscular Hemoglobin 33 pg (25-35) Mean Corpuscular Hemoglobin Concent 33 g/dL (31-37) Red Cell Distribution Width 13.1 % (11.5-14.5) Platelet Count 212 x10^3/uL (140-400) Neutrophils (%) (Auto) 88 % (31-73) Lymphocytes (%) (Auto) 9 % (24-48) Monocytes (%) (Auto) 3 % (0-9) Eosinophils (%) (Auto) 0 % (0-3) Basophils (%) (Auto) 0 % (0-3) Neutrophils # (Auto) 11.1 x10^3uL (1.8-7.7) Lymphocytes # (Auto) 1.1 x10^3/uL (1.0-4.8) Monocytes # (Auto) 0.4 x10^3/uL (0.0-1.1) Eosinophils # (Auto) 0.0 x10^3/uL (0.0-0.7) Basophils # (Auto) 0.1 x10^3/uL (0.0-0.2) Segmented Neutrophils % 37 % (35-66) Band Neutrophils % 44 % (0-9) Lymphocytes % 4 % (24-48) Atypical Lymphocytes % (Manual) 5 % (0-0) Monocytes % 5 % (0-10) Basophils % 1 % (0-3) Metamyelocytes % 4 % (0-0) Toxic Granulation Present Dohle Bodies Present Platelet Estimate Adequate (ADEQUATE) Large Platelets Present Polychromasia Slight Poikilocytosis Slight Anisocytosis Slight Macrocytosis Slight Target Cells Tear Drop Cells Occ Ovalocytes Occ Crenated Cell Present Sodium Level 117 mmol/L (136-145) Potassium Level 7.2 mmol/L (3.5-5.1) Chloride Level 81 mmol/L (98-107) Carbon Dioxide Level 23 mmol/L (21-32) Anion Gap 13 (6-14) Blood Urea Nitrogen 15 mg/dL (7-20) Creatinine 1.0 mg/dL (0.6-1.0) Estimated GFR (Cockcroft-Gault) 69.9 Glucose Level 20 mg/dL (70-99) Lactic Acid Level 12.9 mmol/L (0.4-2.0) Calcium Level 9.6 mg/dL (8.5-10.1) Total Bilirubin 0.8 mg/dL (0.2-1.0) Direct Bilirubin 0.3 mg/dL (0.0-0.2) Aspartate Amino Transf (AST/SGOT) 554 U/L (15-37) Alanine Aminotransferase (ALT/SGPT) 305 U/L (14-59) Alkaline Phosphatase 95 U/L (46-116) Bedside Troponin I 0.78 ng/ml (<0.08) Troponin I Quantitative 1.352 ng/mL (0.000-0.055) KH-Gpq-H-Type Natriuretic Peptide 85770 pg/mL (0-124) Total Protein 6.9 g/dL (6.4-8.2) Albumin 2.9 g/dL (3.4-5.0) Lipase 43 U/L (73-393) Glucose (Fingerstick) 209 mg/dL (70-99) Urine Collection Type Unknown Urine Color Yellow Urine Clarity Cloudy Urine pH 5.5 Urine Specific Tyner 1.010 Urine Protein 30 mg/dL (NEG-TRACE) Urine Glucose (UA) Negative mg/dL (NEG) Urine Ketones (Stick) Negative mg/dL (NEG) Urine Blood Moderate (NEG) Urine Nitrite Negative (NEG) Urine Bilirubin Negative (NEG) Urine Urobilinogen Dipstick 0.2 mg/dL (0.2 mg/dL) Urine Leukocyte Esterase Trace (NEG) Urine RBC 1-2 /HPF (0-2) Urine WBC 1-4 /HPF (0-4) Urine Squamous Epithelial Cells Occ /LPF Urine Bacteria Many /HPF (0-FEW) Urine Hyaline Casts Occasional /HPF Urine Opiates Screen Neg (NEG) Urine Methadone Screen Neg (NEG) Urine Barbiturates Neg (NEG) Urine Phencyclidine Screen Neg (NEG) Urine Amphetamine/Methamphetamine Neg (NEG) Urine Benzodiazepines Screen Neg (NEG) Urine Cocaine Screen Neg (NEG) Urine Cannabinoids Screen Neg (NEG) Urine Ethyl Alcohol Neg (NEG) O2 Saturation 99 % (92-99) Arterial Blood pH 7.03 (7.35-7.45) Arterial Blood pCO2 at Patient Temp 62 mmHg (35-46) Arterial Blood pO2 at Patient Temp 493 mmHg (75-108) Arterial Blood HCO3 16 mmol/L (21-28) Arterial Blood Base Excess -15 mmol/L (-3-3) Oxyhemoglobin 95.3 % Methemoglobin 0.5 % (0.0-1.9) Carbon Monoxide, Quantitative 3.1 % (0.0-1.9) FiO2 100 Test 02/12/17 16:29 02/12/17 17:19 02/12/17 17:30 02/12/17 19:30 Glucose (Fingerstick) 140 mg/dL (70-99) Sodium Level 118 mmol/L (136-145) 121 mmol/L (136-145) Potassium Level 5.7 mmol/L (3.5-5.1) 5.7 mmol/L (3.5-5.1) Chloride Level 86 mmol/L (98-107) 89 mmol/L (98-107) Carbon Dioxide Level 20 mmol/L (21-32) 25 mmol/L (21-32) Anion Gap 12 (6-14) 7 (6-14) Blood Urea Nitrogen 16 mg/dL (7-20) 17 mg/dL (7-20) Creatinine 1.2 mg/dL (0.6-1.0) 1.2 mg/dL (0.6-1.0) Estimated GFR (Cockcroft-Gault) 56.6 56.6 Glucose Level 115 mg/dL (70-99) 111 mg/dL (70-99) Calcium Level 8.9 mg/dL (8.5-10.1) 8.3 mg/dL (8.5-10.1) Thyroid Stimulating Hormone (TSH) 3.671 uIU/mL (0.358-3.74) O2 Saturation 99 % (92-99) Arterial Blood pH 7.11 (7.35-7.45) Arterial Blood pCO2 at Patient Temp 59 mmHg (35-46) Arterial Blood pO2 at Patient Temp 199 mmHg (75-108) Arterial Blood HCO3 18 mmol/L (21-28) Arterial Blood Base Excess -11 mmol/L (-3-3) FiO2 60 White Blood Count 14.8 x10^3/uL (4.0-11.0) Red Blood Count 3.46 x10^6/uL (3.50-5.40) Hemoglobin 11.8 g/dL (12.0-15.5) Hematocrit 33.5 % (36.0-47.0) Mean Corpuscular Volume 97 fL (79-100) Mean Corpuscular Hemoglobin 34 pg (25-35) Mean Corpuscular Hemoglobin Concent 35 g/dL (31-37) Red Cell Distribution Width 13.9 % (11.5-14.5) Platelet Count 261 x10^3/uL (140-400) Prothrombin Time 25.3 SEC (11.7-14.0) Prothromb Time International Ratio 2.5 (0.8-1.1) Activated Partial Thromboplast Time 37 SEC (24-38) Lactic Acid Level 5.5 mmol/L (0.4-2.0) Phosphorus Level 6.7 mg/dL (2.6-4.7) Magnesium Level 2.1 mg/dL (1.8-2.4) Test 02/12/17 23:40 02/13/17 03:55 02/13/17 05:50 02/13/17 08:00 Sodium Level 126 mmol/L (136-145) 128 mmol/L (136-145) 127 mmol/L (136-145) Potassium Level 4.3 mmol/L (3.5-5.1) 4.3 mmol/L (3.5-5.1) 5.1 mmol/L (3.5-5.1) Chloride Level 89 mmol/L (98-107) 93 mmol/L (98-107) 92 mmol/L (98-107) Carbon Dioxide Level 26 mmol/L (21-32) 27 mmol/L (21-32) 23 mmol/L (21-32) Anion Gap 11 (6-14) 8 (6-14) 12 (6-14) Blood Urea Nitrogen 22 mg/dL (7-20) 25 mg/dL (7-20) 25 mg/dL (7-20) Creatinine 1.2 mg/dL (0.6-1.0) 1.4 mg/dL (0.6-1.0) 1.2 mg/dL (0.6-1.0) Estimated GFR (Cockcroft-Gault) 56.6 47.4 56.6 Glucose Level 112 mg/dL (70-99) 107 mg/dL (70-99) 92 mg/dL (70-99) Calcium Level 8.3 mg/dL (8.5-10.1) 8.1 mg/dL (8.5-10.1) 7.7 mg/dL (8.5-10.1) Phosphorus Level 3.7 mg/dL (2.6-4.7) 3.7 mg/dL (2.6-4.7) 3.5 mg/dL (2.6-4.7) Magnesium Level 1.8 mg/dL (1.8-2.4) 1.8 mg/dL (1.8-2.4) 2.1 mg/dL (1.8-2.4) Total Bilirubin 2.9 mg/dL (0.2-1.0) Direct Bilirubin 2.0 mg/dL (0.0-0.2) Aspartate Amino Transf (AST/SGOT) 8606 U/L (15-37) Alanine Aminotransferase (ALT/SGPT) 3966 U/L (14-59) Alkaline Phosphatase 89 U/L (46-116) Total Protein 5.3 g/dL (6.4-8.2) Albumin 2.2 g/dL (3.4-5.0) White Blood Count 9.4 x10^3/uL (4.0-11.0) Red Blood Count 3.51 x10^6/uL (3.50-5.40) Hemoglobin 12.1 g/dL (12.0-15.5) Hematocrit 34.1 % (36.0-47.0) Mean Corpuscular Volume 97 fL (79-100) Mean Corpuscular Hemoglobin 35 pg (25-35) Mean Corpuscular Hemoglobin Concent 36 g/dL (31-37) Red Cell Distribution Width 13.1 % (11.5-14.5) Platelet Count 169 x10^3/uL (140-400) Prothrombin Time 26.7 SEC (11.7-14.0) Prothromb Time International Ratio 2.7 (0.8-1.1) Activated Partial Thromboplast Time 31 SEC (24-38) Test 02/13/17 09:15 O2 Saturation 99 % (92-99) Arterial Blood pH 7.33 (7.35-7.45) Arterial Blood pH (Temp corrected) 7.39 Arterial Blood pCO2 at Patient Temp 43 mmHg (35-46) Arterial Blood pCO2 (Temp correct) 36 mmHg Arterial Blood pO2 at Patient Temp 148 mmHg (75-108) Arterial Blood pO2 (Temp corrected) 124 mmHg Arterial Blood HCO3 22 mmol/L (21-28) Arterial Blood Base Excess -4 mmol/L (-3-3) FiO2 50 Medications Current Medications Calcium Chloride 1,000 mg 1X ONCE IV Last administered on 02/12/17t 15:35; Start 02/12/17 at 16:00; Stop 02/12/17 at 16:35; Status DC Dextrose (Dextrose 50%-Water Syringe) 25 gm 1X ONCE IV Last administered on 15:33; Start 02/12/17 at 16:00; Stop 02/12/17 at 16:35; Status DC Sodium Bicarbonate 50 meq 1X ONCE IV Last administered on 02/12/17 15:35; Start 02/12/17 at 16:00; Stop 02/12/17 at 16:35; Status DC Furosemide (Lasix) 40 mg 1X ONCE IVP Last administered on 02/12/17 16:42; Start 02/12/17 at 16:30; Stop 02/12/17 at 16:35; Status DC Sodium Chloride 1,000 ml @ 1,000 mls/hr Q1H IV Last administered on 02/12/17 15:50; Start 02/12/17 at 16:57; Stop 02/13/17 at 07:23; Status DC Fentanyl Citrate (Fentanyl 2ml Vial) 25 mcg PRN Q30MIN PRN IV SED; Start at 17:00 Lorazepam (Ativan) 1 mg PRN Q30MIN PRN IV SEDATION; Start 02/12/17 at 17:00 Fentanyl Citrate 30 ml @ 2.5 mls/hr CONT PRN PRN IV IVF Last administered on 04:47; Start 02/12/17 at 17:00 Propofol 100 ml @ 0 mls/hr CONT PRN IV SEE I/O RECORD; Start 02/12/17 at 17:00 Vecuronium [place] (Norcuron Bolus) DOSE AT 0.1 mg/kg PRN Q30MIN PRN IV SHIVERING Last administered on 02/12/17 19:46; Start 02/12/17 at 17:00 Meperidine HCl (Demerol) 12.5 mg PRN Q30MIN PRN IV SHIVERING; Start 02/12/17 at 17:00 Multi-Ingred Cream/Lotion/Oil/ Oint (Artificial Tears Eye Oint) 1 silvestre PRN Q6HRS PRN OU 0.5 INCH FOR DRY EYE; Start 02/12/17 at 17:00 Famotidine (Pepcid) 20 mg BID IVP Last administered on 02/13/17 10:11; Start at 09:00 Aspirin (Aspirin) 300 mg DAILY OR Last administered on 02/13/17 10:11; Start at 09:00 Sodium Chloride (Normal Saline Flush) 3 ml QSHIFT PRN IV AFTER MEDS AND BLOOD DRAWS; Start 02/12/17 at 17:00 Acetaminophen (Tylenol) 650 mg Q6HRS NG Last administered on 02/13/17 05:51; Start 02/12/17 at 18:00; Stop 02/13/17 at 17:59 Acetaminophen (Acetaminophen Supp) 650 mg PRN Q6HRS PRN OR MILD PAIN / TEMP; Start 02/13/17 at 17:00 Acetaminophen (Tylenol) 650 mg PRN Q6HRS PRN NG MILD PAIN / TEMP; Start at 17:00 Info 1 ea DAILY PRN MC PER PROTOCOL; Start 02/14/17 at 17:00 Sodium Chloride 500 ml @ 500 mls/hr 1X ONCE IV Last administered on 02/12/17 16:30; Start 02/12/17 at 17:15; Stop 02/12/17 at 18:14; Status DC Sodium Chloride 500 ml @ 500 mls/hr 1X ONCE IV Last administered on 02/12/17 16:50; Start 02/12/17 at 17:15; Stop 02/12/17 at 18:14; Status DC Sodium Chloride 1,000 ml @ 100 mls/hr Q10H IV Last administered on 02/13/17 06 :36; Start 02/12/17 at 19:00; Stop 02/13/17 at 10:51; Status DC Famotidine (Pepcid) 20 mg 1X ONCE PO Last administered on 02/12/17 19:57; Start 02/12/17 at 17:30; Stop 02/12/17 at 17:34; Status DC Methylprednisolone Sodium Succinate (SOLU-Medrol 40MG VIAL) 100 mg TID IV Last administered on 02/13/17 10:12; Start 02/12/17 at 18:00 Sodium Chloride 1,000 ml @ 1,000 mls/hr 1X ONCE IV Last administered on 19:31; Start 02/12/17 at 18:15; Stop 02/12/17 at 19:14; Status DC Piperacillin Sod/ Tazobactam Sod (Zosyn Per Pharmacy) 1 each PRN DAILY PRN MC SEE COMMENTS; Start 02/12/17 at 19:15 Vancomycin HCl (Vanco Per Pharmacy) 1 each PRN DAILY PRN MC SEE COMMENTS Last administered on 02/12/17 20:23; Start 02/12/17 at 19:15 Piperacillin Sod/ Tazobactam Sod 3.375 gm/Sodium Chloride 50 ml @ 100 mls/hr Q6HRS IV Last administered on 02/13/17 05:51; Start 02/12/17 at 19:30 Vancomycin HCl 1 gm/Sodium Chloride 250 ml @ 250 mls/hr 1X ONCE IV Last administered on 02/12/17 20:00; Start 02/12/17 at 19:30; Stop 02/12/17 at 20:29; Status DC Sodium Bicarbonate 50 meq 1X ONCE IV Last administered on 02/12/17 19:59; Start 02/12/17 at 19:30; Stop 02/12/17 at 19:31; Status DC Norepinephrine Bitartrate 250 ml @ 0 mls/hr CONT PRN IV SEE I/O RECORD Last administered on 02/12/17 19:30; Start 02/12/17 at 19:30 Norepinephrine Bitartrate 250 ml @ As Directed STK-MED ONCE IV ; Start 02/12/17 at 19:25; Stop 02/12/17 at 19:26; Status DC Vancomycin HCl 750 mg/Sodium Chloride 250 ml @ 250 mls/hr Q24H IV ; Start at 20:00 Vancomycin HCl 1 each 1X ONCE MC ; Start 02/14/17 at 19:30; Stop 02/14/17 at 19: 31 Sodium Chloride 1,000 ml @ 1,000 mls/hr 1X ONCE IV Last administered on 05:05; Start 02/13/17 at 04:45; Stop 02/13/17 at 05:44; Status DC Sodium Chloride 1,000 ml @ 1,000 mls/hr 1X ONCE IV Last administered on 05:35; Start 02/13/17 at 05:30; Stop 02/13/17 at 06:29; Status DC Magnesium Sulfate/ Dextrose 50 ml @ 25 mls/hr PRN DAILY PRN IV for Mag < 1.7 on am labs; Start 9/7/17 at 10:45 Dextrose/Sodium Chloride 1,000 ml @ 75 mls/hr [id number] IV ; Start 02/13/17 at 11: 00 Active Scripts Active Reported Latuda (Lurasidone Hcl) 20 Mg Tablet 20 Mg PO AFTRNOON Remeron (Mirtazapine) 15 Mg Tablet 1 Tab PO QHS Oxybutynin Chloride Er (Oxybutynin Chloride) 10 Mg Tab.er.24 1 Tab PO DAILY Multivitamins (Multivitamin) 1 Each Tablet 1 Tab PO DAILY Latuda (Lurasidone Hcl) 20 Mg Tablet 10 Mg PO AFTRNOON Lorazepam 0.5 Mg Tablet 1 Tab PO QEVNG Duoneb 0.5-3(2.5) Mg/3 Ml (Albuterol/Ipratropium) 3 Ml Ampul.neb 3 Ml NEB BID Duoneb 0.5-3(2.5) Mg/3 Ml (Albuterol/Ipratropium) 3 Ml Ampul.neb 3 Ml NEB Q4H PRN Calcium Carbonate 500 Mg Tablet 1,000 Mg PO Q4HRS PRN Nicotine Gum (Nicotine Polacrilex) 4 Mg Gum 4 Mg BC Milk Of Magnesia (Magnesium Hydroxide) 400 Mg/5 Ml Oral.susp 400 Mg PO Q3DAYS PRN Milk Of Magnesia (Magnesium Hydroxide) 400 Mg/5 Ml Oral.susp 400 Mg PO Q3DAYS PRN Lorazepam 1 Mg Tablet 1 Tab PO Q12HR PRN Ibuprofen 400 Mg Tablet 200 Mg PO Q8HRS PRN Cough Drops (Eucalyptus Oil/Menthol) 7 Mg Lozenge 7 Mg MM Q4HRS PRN Tylenol (Acetaminophen) 325 Mg Tablet 650 Mg PO Q4HRS PRN Lovaza ([place]-3 Acid Ethyl Esters) 1 Gm Capsule 1 Cap PO QID Gabapentin 400 Mg Capsule 400 Mg PO QID Lorazepam 1 Mg Tablet 1 Tab PO BID Latuda (Lurasidone Hcl) 60 Mg Tablet 60 Mg PO BID Advair 100-50 Diskus (Fluticasone/Salmeterol) 1 Each Disk.w.dev 1 Puff IH BID Acetaminophen 325 Mg Capsule 650 Mg PO BID Vitamin D (Cholecalciferol (Vitamin D3)) 2,000 Unit Capsule 800 Unit PO DAILY Vitals/I & O Vital Sign - Last 24 Hours 02/12/17 02/12/17 02/12/1717 15:23 15:33 15:43 15:45 Pulse 98 122 110 Resp 14 16 20 B/P (MAP) 47/12 (24) 99/62 (74) 125/35 (65) Pulse Ox 84 85 100 100 O2 Delivery Bag Valve Mask Bag Valve Mask Ventilator Ventilator 02/12/17 02/12/17 02/12/17 02/12/17 15:53 16:03 16:18 16:28 Pulse 88 88 92 94 Resp 20 22 19 20 B/P (MAP) 109/68 (82) 116/60 (78) 82/48 (59) 72/41 (51) Pulse Ox 100 100 100 100 02/12/17 02/12/17 02/12/17 02/12/17 16:38 16:48 16:58 17:08 Temp 90.1 90.1 Pulse 87 91 92 90 Resp 25 21 B/P (MAP) 80/43 (55) 76/54 (61) 74/54 (61) 79/52 (61) Pulse Ox 99 97 97 95 02/12/17 02/12/17 02/12/17 02/12/17 17:18 17:28 17:38 17:45 Pulse 92 93 93 Resp 25 B/P (MAP) 65/44 (51) 80/42 (55) 72/44 (53) Pulse Ox 95 93 94 100 O2 Delivery Ventilator 02/12/17 02/12/17 02/12/17 02/12/17 17:48 17:58 18:08 18:18 Temp 91.5 91.5 Pulse 94 95 94 93 Resp 25 B/P (MAP) 55/33 (40) 76/39 (51) 69/41 (50) 89/34 (52) Pulse Ox 94 93 97 97 O2 Delivery Ventilator 02/12/17 02/12/17 02/12/17 02/12/17 18:28 18:38 19:00 19:15 Pulse 94 96 94 Resp B/P (MAP) 74/35 (48) 78/44 (55) 85/55 (65) 87/47 (60) Pulse Ox 98 100 100 100 O2 Delivery Ventilator Ventilator Ventilator 02/12/17 02/12/17 02/12/17 02/12/17 19:30 19:32 19:45 20:00 Pulse 94 98 92 Resp 26 26 25 25 B/P (MAP) 109/64 (79) 111/48 (69) 140/67 (91) Pulse Ox 100 100 100 100 O2 Delivery Ventilator Ventilator Ventilator Ventilator 02/12/17 02/12/17 02/12/17 02/12/17 20:00 20:05 20:32 20:45 Pulse 80 Resp 26 25 B/P (MAP) 129/73 (91) Pulse Ox 100 100 100 O2 Delivery Mechanical Ventilator Ventilator Ventilator 02/12/17 02/12/17 02/12/17 02/12/17 21:00 22:00 23:00 23:48 Pulse 79 72 70 Resp 26 25 25 B/P (MAP) 106/68 (81) 117/63 (81) 137/79 (98) Pulse Ox 100 100 100 100 O2 Delivery Ventilator Ventilator Ventilator Ventilator 02/12/17 02/13/17 02/13/17 02/13/17 23:59 00:00 01:00 02:00 Pulse 72 78 89 Resp 25 25 25 B/P (MAP) 106/66 (79) 124/85 (98) 124/72 (89) Pulse Ox 100 100 100 O2 Delivery Mechanical Ventilator Ventilator Ventilator Ventilator 02/13/17 02/13/17 02/13/17 02/13/17 02:15 02:16 03:00 04:00 Pulse 88 86 Resp 25 25 B/P (MAP) 123/71 (88) 109/69 (82) Pulse Ox 100 100 100 O2 Delivery Ventilator Ventilator Ventilator Mechanical Ventilator 02/13/17 02/13/17 02/13/17 02/13/17 04:00 04:25 04:47 05:00 Pulse 81 69 Resp 26 26 25 B/P (MAP) 109/80 (90) 166/90 (115) Pulse Ox 100 100 100 100 O2 Delivery Ventilator Ventilator Ventilator Ventilator 02/13/17 02/13/17 02/13/17 05:15 07:19 09:00 Pulse 68 Resp 25 B/P (MAP) 131/83 (99) Pulse Ox 100 100 O2 Delivery Ventilator Ventilator Ventilator BERONICA VILLATORO MD Feb 13, 2017 11:07
--- NOTE | 2017-02-13 11:08 | PDOC ---
Provider Note Provider Note dictated NEVA FALCON MD Feb 13, 2017 11:08
[2017-02-13] MEDS ORDERED: VECURONIUM BOLUS 10 MG VIAL. IV PRN (11:15)
[2017-02-13] MEDS ORDERED: LIDOCAINE 1% / SOD BICARB 8.4% 20 ML VIAL. IJ ONE ×2 (11:15→11:22)
[2017-02-13] MEDS: NOREPINEPHRIN PREMIX 250 ML IV PRN ×2 (11:28→22:15)
--- NOTE | 2017-02-13 11:32 | CARD ---
APPROVED REPORT EXAM: Two-dimensional and M-mode echocardiogram with Doppler and color Doppler. Other Information Quality : Limited Rhythm : NSRTechnically limited study due to limited echo windows. INDICATION post code 2D DIMENSIONS RVDd3.1 (2.9-3.5cm)Left Atrium(2D)2.2 (1.6-4.0cm) IVSd0.8 (0.7-1.1cm)Aortic Root(2D)2.8 (2.0-3.7cm) LVDd2.9 (3.9-5.9cm)LVOT Diameter2.0 (1.8-2.4cm) PWd0.8 (0.7-1.1cm)LVDs2.5 (2.5-4.0cm) FS (%) 14.4 %SV10.3 ml Aortic Valve AoV Peak Eliel.65.2cm/sAoV VTI9.0cm AO Peak GR.1.7mmHgLVOT VTI 8.18cm AO Mean GR.1mmHg Mitral Valve MV E Qvtlqtgc00.9cm/sMV DECEL [id number] MV A Mkyxrkrk20.3cm/sE/A Ratio1.0 MV A [id number] TDI Lateral E' P. V3.18cm/sMedial E' P. V3.85cm/s E/Lateral E'14.4E/Medial E'11.9 Tricuspid Valve TR P. [id number] [id number] TR Peak Gr.[id number] LEFT VENTRICLE The left ventricle is normal size. There is normal left ventricular wall thickness. Left ventricle sy stolic function is low normal. The Ejection Fraction is 50%. Flattening of interventricular septum co nsistent right ventricle pressure/volume overload. The left ventricular diastolic function and fillin g is normal for age. There is no ventricular septal defect visualized. RIGHT VENTRICLE The right ventricle is enlarged measuring 3.6cm. Systolic function is severely reduced. ATRIA The left atrium size is normal. The right atrium size is normal. The interatrial septum is intact wit h no evidence for an atrial septal defect or patent foramen ovale as noted on 2-D or Doppler imaging. AORTIC VALVE The aortic valve is normal in structure and function. The aortic valve is trileaflet. Doppler and Col or Flow revealed no significant aortic regurgitation. There is no significant aortic valvular stenosi s. MITRAL VALVE The mitral valve is normal in structure and function. There is no mitral valve stenosis. Doppler and Color Flow revealed mild mitral regurgitation. TRICUSPID VALVE The tricuspid valve is normal in structure. Doppler and Color Flow revealed mild tricuspid regurgitat ion. The PA pressure was estimated at 43 mmHg. There is no tricuspid valve stenosis. PULMONIC VALVE The pulmonic valve is not well visualized. Doppler and Color Flow revealed no pulmonic valvular regur gitation. There is no pulmonic valvular stenosis. GREAT VESSELS The aortic root is normal in size. Pulmonary veins not recorded. The IVC is dilated and collapses <50 % with inspiration. PERICARDIAL EFFUSION There is no evidence of significant pericardial effusion. Critical Notification Physician Notified Date: 02/13/2017 Time: 09:37 Physician Name:Dr. Dumont Critical Value: Yes <Conclusion> Left ventricle systolic function is low normal. The Ejection Fraction is 50%. Flattening of interventricular septum consistent right ventricle pressure/volume overload. The right ventricle is enlarged. Mild mitral regurgitation. Mild tricuspid regurgitation. The PA pressure was estimated at 43 mmHg. There is no evidence of significant pericardial effusion.
--- NOTE | 2017-02-13 11:41 | CONS ---
DATE OF CONSULTATION: ATTENDING PHYSICIAN: Dr. Lockhart. REASON FOR CONSULTATION: Respiratory failure, cardiac arrest. HISTORY OF PRESENT ILLNESS: The patient is a 56-year-old female who has history of COPD, could be severe; anorexia; and schizophrenia. She was sent from skilled care unit after she had a cardiac arrest. She was intubated. Per ER notes, the patient was seen at noon time and was doing reasonably well. However, towards later, she was found unresponsive. EMS was called. CPR was started and she was found to be asystole. Epinephrine was given x 3, but looks like she did not have the IV access, and the interosseous line infiltrated into her skin and she did not actually receive epinephrine. Code blue lasted for at least 20 minutes. When patient arrived at the ER, she was still having CPR. She eventually had return of spontaneous circulation. She was intubated. Her initial arterial blood gases revealed a pH of 7. , pCO2 of 62 and a pO2 of 493 on 100% FIO2. Subsequently, ABGs showed a pH of 7.11, pCO2 59 and a pO2 of 199 on 60% FIO2, and latest ABG showed a pH of 7.39, pCO2 of 43 and a pO2 of 148 on 50% FiO2, AC of 26, tidal volume of 450. Her chest x-ray was reviewed by me. There were faint mild bilateral interstitial markings, consistent with interstitial edema. The patient's CT head did not reveal any acute intracranial pathology. Her labs were also abnormal with a sodium of 118 on admission, which is now corrected to 127. Her lactic acid was markedly elevated at 12.9 and her INR is elevated, though I do not see that she is on any Coumadin at home. Her LFTs are highly abnormal as well. I have discussed with Dr. Agee at the bedside and RN and RT. PAST MEDICAL HISTORY: Significant for COPD, could be severe; history of schizophrenia. PAST SURGICAL HISTORY: None recently reported. ALLERGIES: DIVALPROEX SODIUM. MEDICATIONS: Reviewed, as listed in the [facility] including broad-spectrum antibiotics. REVIEW OF SYSTEMS: Unable to obtain. She is on the ventilator. PHYSICAL EXAMINATION: VITAL SIGNS: Blood pressure is 131/83. She is not on any pressors. Pulse ox is 100%. HEENT: Sclerae nonicteric. NECK: Supple. LUNGS: Diminished breath sounds. CARDIOVASCULAR: Regular rate. ABDOMEN: Soft, nontender. EXTREMITIES: Cold. LABORATORY DATA: Reviewed. Sodium is 127, it is improved. Potassium is 5.1, BUN is 25 and creatinine 1.2; however, she is not making urine. Her magnesium 2.1, AST 8606, ALT 3966. Albumin is 2.2. ABGs are discussed in my history of present illness. White cell count 9.4, hemoglobin 12.2 and platelets are 169. IMPRESSION: 1. Acute respiratory failure secondary to cardiac arrest. The etiology of respiratory failure is multifactorial and includes a combination of acute exacerbation of chronic obstructive pulmonary disease, possible effect of benzodiazepine which she is taking chronically, cardiac arrest and possible hyponatremia contributing to the encephalopathy. 2. Acute encephalopathy. This is again multifactorial, most likely metabolic and toxic. 3. Status post cardiac arrest. She had asystole. She had CPR for 20 minutes and she was down for 2 hours. Possibility of anoxic brain injury cannot be ruled out. 4. Abnormal echocardiogram with ejection fraction of 35%. She also has diastolic dysfunction and she also has right ventricular dilatation. This is consistent with biventricular failure. Clinically, I suspect less likely thromboembolic disease. However, to rule this out, she will need a CTA chest, but she cannot handle contrast due to renal failure and a V/Q scan cannot be done while on the ventilator. We can empirically heparinize her. RV dilatation could be related to her severe chronic obstructive pulmonary disease. 5. Hyponatremia, being corrected. 6. Abnormal LFTs secondary to hypoperfusion. 7. Suspected anoxic encephalopathy. 8. Acute renal failure. RECOMMENDATION: 1. Continue with present assist control mode and make necessary adjustment based on ABGs. 2. Continue broad-spectrum antibiotics. Clinically, less likely septic shock. 3. Marked lactic acidosis related to hypoperfusion from cardiac arrest and it is trending down. 4. Bronchodilators. 5. DVT prophylaxis. The patient already has a high INR. We will monitor for now. 6. Stress ulcer prophylaxis with Pepcid. 7. P.r.n. vasopressor. The shock appears to have improved. She no longer is on norepinephrine. 8. Empiric anticoagulation with heparin until her renal function gets better and we can do a CTA chest down the road. 9. Obtain venous Dopplers of lower extremities. 10. Discussed with Dr. Agee, discussed with Dr. Karyn Covarrubias, RN and RT. Critical care time 50 minutes. NEVA FALCON MD DR: NADJA/kelley JOB#: [id number] / [id number]
[2017-02-13] MEDS ORDERED: HEPARIN 25,000UTS/500ML PREMIX 500 ML IV PRN (11:45)
[2017-02-13] MEDS ORDERED: HEPARIN for IV BOLUS 10,000 UNIT/10 ML VIAL. IV ONE (11:45)
[2017-02-13] MEDS ORDERED: HEPARIN for IV BOLUS 10,000 UNIT/10 ML VIAL. IV PRN ×2 (11:45)
--- NOTE | 2017-02-13 12:42 | CONS ---
DATE OF CONSULTATION: 02/13/2017 REASON FOR CONSULTATION: Acute renal failure, electrolyte abnormalities. CONSULTING PHYSICIAN: Dr. Lockhart. Reason for admission initial consultation was hyperkalemia. HISTORY OF PRESENT ILLNESS: The patient is a 56-year-old female with history of schizophrenia, anorexia, hepatitis C. She was brought from the [place] [facility] after she was found down in her room. It is not known how long she was down. She was found to be in asystole. ACLS was done with good CPR and return of pulse. However, she was pulseless in the ER. She did receive Lasix, dextrose, sodium bicarbonate, calcium in the ER for potassium of 7.2, bicarbonate of 23 and sodium of 117. BUN and creatinine were 1.0. She is felt to have a baseline creatinine of 1.3 based on the ER physician's notes. I have reviewed the ER physician's course in medical decision making. Currently she is intubated and sedated on the vent, unresponsive due to her sedation presumably. She has no urine output. Sodium is up to 127, BUN 25, creatinine 1.2. LFTs are noted to be grossly abnormal. Her glucose on arrival was 20. Troponins are positive. Echocardiogram has been done and was discussed with Dr. Dumont suggesting significant right ventricular dilatation. Her potassium is corrected to 5.1 and her BUN and creatinine are down to 25 and 1.2. She was also felt to be markedly acidotic at presentation with ABGs of 7.03/62/493 immediately post-intubation. PAST MEDICAL HISTORY: Positive for history of cataracts with lens implants, hyperlipidemia, COPD, anorexia, constipation, incontinence, Tietze syndrome, paranoid schizophrenia, depression, anxiety, substance abuse in the past, tobacco use as well as history of smoking, possible history of hepatitis C. FAMILY HISTORY: Unable to be obtained from the patient at this time. SOCIAL HISTORY: care home resident, previous history of smoking. Current use is not known. For rest of details, see electronic records. ELIAZAR GREER MD DR: OSVALDO/kelley JOB#: [id number] / [id number]
[2017-02-13] MEDS ORDERED: ANTI-COAG MONITOR BY PHARMACY. MC PRN (13:00)
--- NOTE | 2017-02-13 13:00 | PDOC2 ---
YON RIVAS SPECIAL NEEDS TUTOR 02/13/17 1300: CARDIAC CONSULT DATE OF CONSULT Date of Consult DATE: 02/13/17 TIME: 12:22 REASON FOR CONSULT Reason for Consult: post code blue REFERRING PHYSICIAN Referring Physician: Chantelle SOURCE Source: Chart review HISTORY OF PRESENT ILLNESS HISTORY OF PRESENT ILLNESS This is a 56 yo male admitted for post cardiac arrest. Pt is a resident from a [facility]. She was found unresponsive and was noted with asystole per EMS initially then resuscitation was initiated and ROSC achieved. From report this may have recurred again for the second time and ROSC was achieved and pt noted with wide complex rhythm. Upon further evaluation upon ED admission she was noted with significant issues such as hypothermia, hyponatremia, hyperkalemia, hypoglycemia. There was not noted cardiac symptoms prior to event. No hx of VTE, CAD, CVA per review. Positive for schizophrenia. No family available to note any further history. Discussion with staff and chart review did not show clear timeline and duration of events. PAST MEDICAL HISTORY Cardiovascular: Hyperlipidemia Pulmonary: COPD Hepatobiliary: Hep A/B/C (C) Psych: Anxiety, Schizophrenia Musculoskeletal: Other (chronic pain syndrome) Renal/: UTI PAST SURGICAL HISTORY Past Surgical History: Cataract Removal FAMILY HISTORY Family History: Family History Unknown SOCIAL HISTORY Smoke: No (past tobacco use) ALCOHOL: none Drugs: None Lives: [facility] CURRENT MEDICATIONS CURRENT MEDICATIONS Current Medications Medications (Trade) Dose Ordered Sig/Bryce Route PRN Reason Start Time Stop Time Status Last Admin Dose Admin Calcium Chloride 1,000 mg 1X ONCE IV 02/12/17 16:00 02/12/17 16:35 DC 02/12/17 15:35 Dextrose (Dextrose 50%-Water Syringe) 25 gm 1X ONCE IV 02/12/17 16:00 02/12/17 16:35 DC 02/12/17 15:33 Sodium Bicarbonate 50 meq 1X ONCE IV 02/12/17 16:00 02/12/17 16:35 DC 02/12/17 15:35 Furosemide (Lasix) 40 mg 1X ONCE IVP 02/12/17 16:30 02/12/17 16:35 DC 02/12/17 16:42 Sodium Chloride 1,000 ml @ 1,000 mls/hr Q1H IV 02/12/17 16:57 02/13/17 07:23 DC 02/12/17 15:50 Fentanyl Citrate 30 ml @ 2.5 mls/hr CONT PRN PRN IV IVF 02/12/17 17:00 02/13/17 04:47 Vecuronium [employer] (Norcuron Bolus) DOSE AT 0.1 mg/kg PRN Q30MIN PRN IV SHIVERING 02/12/17 17:00 02/13/17 11:01 DC 02/12/17 19:46 Famotidine (Pepcid) 20 mg BID IVP 02/13/17 09:00 02/13/17 10:11 Aspirin (Aspirin) 300 mg DAILY GA 02/13/17 09:00 02/13/17 10:11 Acetaminophen (Tylenol) 650 mg Q6HRS NG 02/12/17 18:00 02/13/17 17:59 02/13/17 05:51 Sodium Chloride 500 ml @ 500 mls/hr 1X ONCE IV 02/12/17 17:15 02/12/17 18:14 DC 02/12/17 16:30 Sodium Chloride 500 ml @ 500 mls/hr 1X ONCE IV 02/12/17 17:15 02/12/17 18:14 DC 02/12/17 16:50 Sodium Chloride 1,000 ml @ 100 mls/hr Q10H IV 02/12/17 19:00 02/13/17 10:51 DC 02/13/17 06:36 Famotidine (Pepcid) 20 mg 1X ONCE PO 02/12/17 17:30 02/12/17 17:34 DC 02/12/17 19:57 Methylprednisolone Sodium Succinate (SOLU-Medrol 40MG VIAL) 100 mg TID IV 02/12/17 18:00 02/13/17 10:12 Sodium Chloride 1,000 ml @ 1,000 mls/hr 1X ONCE IV 02/12/17 18:15 02/12/17 19:14 DC 02/12/17 19:31 Vancomycin HCl (Vanco Per Pharmacy) 1 each PRN DAILY PRN MC SEE COMMENTS 02/12/17 19:15 02/12/17 20:23 Piperacillin Sod/ Tazobactam Sod 3.375 gm/Sodium Chloride 50 ml @ 100 mls/hr Q6HRS IV 02/12/17 19:30 02/13/17 05:51 Vancomycin HCl 1 gm/Sodium Chloride 250 ml @ 250 mls/hr 1X ONCE IV 02/12/17 19:30 02/12/17 20:29 DC 02/12/17 20:00 Sodium Bicarbonate 50 meq 1X ONCE IV 02/12/17 19:30 02/12/17 19:31 DC 02/12/17 19:59 Norepinephrine Bitartrate 250 ml @ 0 mls/hr CONT PRN IV SEE I/O RECORD 02/12/17 19:30 02/13/17 11:28 Sodium Chloride 1,000 ml @ 1,000 mls/hr 1X ONCE IV 02/13/17 04:45 02/13/17 05:44 DC 02/13/17 05:05 Sodium Chloride 1,000 ml @ 1,000 mls/hr 1X ONCE IV 02/13/17 05:30 02/13/17 06:29 DC 02/13/17 05:35 Lidocaine/Sodium Bicarbonate (Buffered Lidocaine 1%) 3 ml 1X ONCE IJ 02/13/17 11:15 02/13/17 11:26 DC 02/13/17 11:40 Heparin Sodium/ Sodium Chloride 60 unit 1X ONCE IV 02/13/17 11:15 02/13/17 11:26 DC 02/13/17 11:40 ALLERGIES ALLERGIES: Coded Allergies: divalproex sodium (Verified Allergy, Intermediate, Unknown, 02/12/17) PT NOT VERBALLY RESPONSIVE AT THIS TIME, ALLERGIES LISTED ON PAPERWORK ROS Review of System unreliable, intubated PHYSICAL EXAM General: Other (sedated; hypothermic) HEENT: Atraumatic, Mucous membr. moist/pink Lungs: Other (intubated with vent) Heart: Regular rate (SR), Other (distant heart sounds) Abdomen: Soft, Other (NGT with coffee ground gastric contents. ) Extremities: No edema Skin: No breakdown, No significant lesion Psych/Mental Status: Other (intubated) MUSCULOSKELETAL: Osteoarthritic changes both hands VITALS VITALS Vital Signs Date Time Temp Pulse Resp B/P (MAP) Pulse Ox O2 Delivery O2 Flow Rate FiO2 02/13/17 12:00 92.7 86 26 100/70 (80) 100 Ventilator 92.7 LABS Lab: Laboratory Tests Test 02/12/17 15:24 02/12/17 15:45 02/12/17 15:49 02/12/17 15:50 White Blood Count 12.7 x10^3/uL (4.0-11.0) Red Blood Count 3.69 x10^6/uL (3.50-5.40) Hemoglobin 12.3 g/dL (12.0-15.5) Hematocrit 37.4 % (36.0-47.0) Mean Corpuscular Volume 102 fL (79-100) Mean Corpuscular Hemoglobin 33 pg (25-35) Mean Corpuscular Hemoglobin Concent 33 g/dL (31-37) Red Cell Distribution Width 13.1 % (11.5-14.5) Platelet Count 212 x10^3/uL (140-400) Neutrophils (%) (Auto) 88 % (31-73) Lymphocytes (%) (Auto) 9 % (24-48) Monocytes (%) (Auto) 3 % (0-9) Eosinophils (%) (Auto) 0 % (0-3) Basophils (%) (Auto) 0 % (0-3) Neutrophils # (Auto) 11.1 x10^3uL (1.8-7.7) Lymphocytes # (Auto) 1.1 x10^3/uL (1.0-4.8) Monocytes # (Auto) 0.4 x10^3/uL (0.0-1.1) Eosinophils # (Auto) 0.0 x10^3/uL (0.0-0.7) Basophils # (Auto) 0.1 x10^3/uL (0.0-0.2) Segmented Neutrophils % 37 % (35-66) Band Neutrophils % 44 % (0-9) Lymphocytes % 4 % (24-48) Atypical Lymphocytes % (Manual) 5 % (0-0) Monocytes % 5 % (0-10) Basophils % 1 % (0-3) Metamyelocytes % 4 % (0-0) Toxic Granulation Present Dohle Bodies Present Platelet Estimate Adequate (ADEQUATE) Large Platelets Present Polychromasia Slight Poikilocytosis Slight Anisocytosis Slight Macrocytosis Slight Target Cells Tear Drop Cells Occ Ovalocytes Occ Crenated Cell Present Sodium Level 117 mmol/L (136-145) Potassium Level 7.2 mmol/L (3.5-5.1) Chloride Level 81 mmol/L (98-107) Carbon Dioxide Level 23 mmol/L (21-32) Anion Gap 13 (6-14) Blood Urea Nitrogen 15 mg/dL (7-20) Creatinine 1.0 mg/dL (0.6-1.0) Estimated GFR (Cockcroft-Gault) 69.9 Glucose Level 20 mg/dL (70-99) Lactic Acid Level 12.9 mmol/L (0.4-2.0) Calcium Level 9.6 mg/dL (8.5-10.1) Total Bilirubin 0.8 mg/dL (0.2-1.0) Direct Bilirubin 0.3 mg/dL (0.0-0.2) Aspartate Amino Transf (AST/SGOT) 554 U/L (15-37) Alanine Aminotransferase (ALT/SGPT) 305 U/L (14-59) Alkaline Phosphatase 95 U/L (46-116) Bedside Troponin I 0.78 ng/ml (<0.08) Troponin I Quantitative 1.352 ng/mL (0.000-0.055) XH-Ams-E-Type Natriuretic Peptide 09016 pg/mL (0-124) Total Protein 6.9 g/dL (6.4-8.2) Albumin 2.9 g/dL (3.4-5.0) Lipase 43 U/L (73-393) Glucose (Fingerstick) 209 mg/dL (70-99) Urine Collection Type Unknown Urine Color Yellow Urine Clarity Cloudy Urine pH 5.5 Urine Specific [place] 1.010 Urine Protein 30 mg/dL (NEG-TRACE) Urine Glucose (UA) Negative mg/dL (NEG) Urine Ketones (Stick) Negative mg/dL (NEG) Urine Blood Moderate (NEG) Urine Nitrite Negative (NEG) Urine Bilirubin Negative (NEG) Urine Urobilinogen Dipstick 0.2 mg/dL (0.2 mg/dL) Urine Leukocyte Esterase Trace (NEG) Urine RBC 1-2 /HPF (0-2) Urine WBC 1-4 /HPF (0-4) Urine Squamous Epithelial Cells Occ /LPF Urine Bacteria Many /HPF (0-FEW) Urine Hyaline Casts Occasional /HPF Urine Opiates Screen Neg (NEG) Urine Methadone Screen Neg (NEG) Urine Barbiturates Neg (NEG) Urine Phencyclidine Screen Neg (NEG) Urine Amphetamine/Methamphetamine Neg (NEG) Urine Benzodiazepines Screen Neg (NEG) Urine Cocaine Screen Neg (NEG) Urine Cannabinoids Screen Neg (NEG) Urine Ethyl Alcohol Neg (NEG) O2 Saturation 99 % (92-99) Arterial Blood pH 7.03 (7.35-7.45) Arterial Blood pCO2 at Patient Temp 62 mmHg (35-46) Arterial Blood pO2 at Patient Temp 493 mmHg (75-108) Arterial Blood HCO3 16 mmol/L (21-28) Arterial Blood Base Excess -15 mmol/L (-3-3) Oxyhemoglobin 95.3 % Methemoglobin 0.5 % (0.0-1.9) Carbon Monoxide, Quantitative 3.1 % (0.0-1.9) FiO2 100 Test 02/12/17 16:29 02/12/17 17:19 02/12/17 17:30 02/12/17 19:30 Glucose (Fingerstick) 140 mg/dL (70-99) Sodium Level 118 mmol/L (136-145) 121 mmol/L (136-145) Potassium Level 5.7 mmol/L (3.5-5.1) 5.7 mmol/L (3.5-5.1) Chloride Level 86 mmol/L (98-107) 89 mmol/L (98-107) Carbon Dioxide Level 20 mmol/L (21-32) 25 mmol/L (21-32) Anion Gap 12 (6-14) 7 (6-14) Blood Urea Nitrogen 16 mg/dL (7-20) 17 mg/dL (7-20) Creatinine 1.2 mg/dL (0.6-1.0) 1.2 mg/dL (0.6-1.0) Estimated GFR (Cockcroft-Gault) 56.6 56.6 Glucose Level 115 mg/dL (70-99) 111 mg/dL (70-99) Calcium Level 8.9 mg/dL (8.5-10.1) 8.3 mg/dL (8.5-10.1) Thyroid Stimulating Hormone (TSH) 3.671 uIU/mL (0.358-3.74) O2 Saturation 99 % (92-99) Arterial Blood pH 7.11 (7.35-7.45) Arterial Blood pCO2 at Patient Temp 59 mmHg (35-46) Arterial Blood pO2 at Patient Temp 199 mmHg (75-108) Arterial Blood HCO3 18 mmol/L (21-28) Arterial Blood Base Excess -11 mmol/L (-3-3) FiO2 60 White Blood Count 14.8 x10^3/uL (4.0-11.0) Red Blood Count 3.46 x10^6/uL (3.50-5.40) Hemoglobin 11.8 g/dL (12.0-15.5) Hematocrit 33.5 % (36.0-47.0) Mean Corpuscular Volume 97 fL (79-100) Mean Corpuscular Hemoglobin 34 pg (25-35) Mean Corpuscular Hemoglobin Concent 35 g/dL (31-37) Red Cell Distribution Width 13.9 % (11.5-14.5) Platelet Count 261 x10^3/uL (140-400) Prothrombin Time 25.3 SEC (11.7-14.0) Prothromb Time International Ratio 2.5 (0.8-1.1) Activated Partial Thromboplast Time 37 SEC (24-38) Lactic Acid Level 5.5 mmol/L (0.4-2.0) Phosphorus Level 6.7 mg/dL (2.6-4.7) Magnesium Level 2.1 mg/dL (1.8-2.4) Test 02/12/17 23:40 02/13/17 03:55 02/13/17 05:50 02/13/17 08:00 Sodium Level 126 mmol/L (136-145) 128 mmol/L (136-145) 127 mmol/L (136-145) Potassium Level 4.3 mmol/L (3.5-5.1) 4.3 mmol/L (3.5-5.1) 5.1 mmol/L (3.5-5.1) Chloride Level 89 mmol/L (98-107) 93 mmol/L (98-107) 92 mmol/L (98-107) Carbon Dioxide Level 26 mmol/L (21-32) 27 mmol/L (21-32) 23 mmol/L (21-32) Anion Gap 11 (6-14) 8 (6-14) 12 (6-14) Blood Urea Nitrogen 22 mg/dL (7-20) 25 mg/dL (7-20) 25 mg/dL (7-20) Creatinine 1.2 mg/dL (0.6-1.0) 1.4 mg/dL (0.6-1.0) 1.2 mg/dL (0.6-1.0) Estimated GFR (Cockcroft-Gault) 56.6 47.4 56.6 Glucose Level 112 mg/dL (70-99) 107 mg/dL (70-99) 92 mg/dL (70-99) Calcium Level 8.3 mg/dL (8.5-10.1) 8.1 mg/dL (8.5-10.1) 7.7 mg/dL (8.5-10.1) Phosphorus Level 3.7 mg/dL (2.6-4.7) 3.7 mg/dL (2.6-4.7) 3.5 mg/dL (2.6-4.7) Magnesium Level 1.8 mg/dL (1.8-2.4) 1.8 mg/dL (1.8-2.4) 2.1 mg/dL (1.8-2.4) Total Bilirubin 2.9 mg/dL (0.2-1.0) Direct Bilirubin 2.0 mg/dL (0.0-0.2) Aspartate Amino Transf (AST/SGOT) 8606 U/L (15-37) Alanine Aminotransferase (ALT/SGPT) 3966 U/L (14-59) Alkaline Phosphatase 89 U/L (46-116) Total Protein 5.3 g/dL (6.4-8.2) Albumin 2.2 g/dL (3.4-5.0) White Blood Count 9.4 x10^3/uL (4.0-11.0) Red Blood Count 3.51 x10^6/uL (3.50-5.40) Hemoglobin 12.1 g/dL (12.0-15.5) Hematocrit 34.1 % (36.0-47.0) Mean Corpuscular Volume 97 fL (79-100) Mean Corpuscular Hemoglobin 35 pg (25-35) Mean Corpuscular Hemoglobin Concent 36 g/dL (31-37) Red Cell Distribution Width 13.1 % (11.5-14.5) Platelet Count 169 x10^3/uL (140-400) Prothrombin Time 26.7 SEC (11.7-14.0) Prothromb Time International Ratio 2.7 (0.8-1.1) Activated Partial Thromboplast Time 31 SEC (24-38) Test 9/7/17 09:15 O2 Saturation 99 % (92-99) Arterial Blood pH 7.33 (7.35-7.45) Arterial Blood pH (Temp corrected) 7.39 Arterial Blood pCO2 at Patient Temp 43 mmHg (35-46) Arterial Blood pCO2 (Temp correct) 36 mmHg Arterial Blood pO2 at Patient Temp 148 mmHg (75-108) Arterial Blood pO2 (Temp corrected) 124 mmHg Arterial Blood HCO3 22 mmol/L (21-28) Arterial Blood Base Excess -4 mmol/L (-3-3) FiO2 50 ECHOCARDIOGRAM ECHOCARDIOGRAM <Conclusion> Left ventricle systolic function is low normal. The Ejection Fraction is 50%. Flattening of interventricular septum consistent right ventricle pressure/ volume overload. The right ventricle is enlarged. Mild mitral regurgitation. Mild tricuspid regurgitation. The PA pressure was estimated at 43 mmHg. There is no evidence of significant pericardial effusion. DATE: 02/13/17 1131 ASSESSMENT/PLAN ASSESSMENT/PLAN 1. S/P cardiac arrest: initial rhythm finding asystole with ROSC. Unknown duration of CPR prior to ROSC. Rhythm progress per staff asystole, SR, then bradycardia then noted with AIVR. 2. Acute respiratory failure: intubated/vented, followed by pulmonary 3. Acute respiratory/metabolic acidosis: Notable for RV dilation. PE component? 4. Hypothermia: initially as well. presently on hypothermic protocol. 5. Hypoglycemia: initial BG 20 6. Hyponatremia/hyperkalemia: Initial K 7s and Na 110s. Improving. Nephrology following 7. Arrhythmia: noted with AIVR as above. multifactorial with lyte abnormalities. EF 50%. Post treatment with lyte correction, now SR with no significant acute changes. 8. Shock liver with possible UGI bleed: GI following. INR 2.7 9. NSTEMI: Troponin 1.3. Suspect demand mediated, multifactorial. 10. Hx of Schizophrenia Recommendations 1. Continue workup per multiple consultants. 2. Will consider for ischemic workup, MPI form once acute issues are resolved and neurological status 3. Vasopressor as warranted, BP stable currently, supportive care at this time 4. Empiric heparin to start per pulmonary. Unable to proceed with CTA with very low UOP. Problems: KRISTIN COX MD 02/13/17 0312: CARDIAC CONSULT ALLERGIES ALLERGIES: Coded Allergies: divalproex sodium (Verified Allergy, Intermediate, Unknown, 02/12/17) PT NOT VERBALLY RESPONSIVE AT THIS TIME, ALLERGIES LISTED ON PAPERWORK ASSESSMENT/PLAN ASSESSMENT/PLAN Patient seen and examined. Agree with above nurse practitioner note. 56-year-old woman presenting with cardiac and respiratory arrest. She has multiorgan dysfunction with a non-ST elevation myocardial infarction. Ejection fraction appears to be approximately 40-45%. Significant RV dysfunction. Possible etiologies include her pulmonary embolus or other metabolic disturbance. Supportive care from a cardiac standpoint. Continue heparin and Levophed. Plan for myocardial perfusion study or cardiac catheterization depending on neurologic status and recovery from a renal standpoint and cardiac enzymes. Problems: YON RIVAS APRN Feb 13, 2017 13:00 KRISTIN COX MD Feb 13, 2017 17:19
[2017-02-13] MEDS: IV DEXTROSE 5 %-0.2 % NACL 1,000 ML IV SCH (13:04)
[2017-02-13 13:11] LABS: CALCIUM 7.6 mg/dL (8.5-10.1); CREATININE 1.5 mg/dL (0.6-1.0); GFR 43.8; POTASSIUM 4.1 mmol/L (3.5-5.1)
[2017-02-13 13:15] LABS: MAGNESIUM 1.9 mg/dL (1.8-2.4); PHOSPHORUS 3.7 mg/dL (2.6-4.7)
--- NOTE | 2017-02-13 14:06 | RAD ---
Procedure: Placement of right internal jugular central venous catheter Clinical Indication: For central venous access. Sterility: All elements of maximal sterile barrier technique including the use of a cap, mask, sterile gown, sterile gloves, large sterile sheet, appropriate hand hygiene, and 2% chlorhexidine for cutaneous antisepsis (or acceptable alternative antiseptic per current guidelines) were followed for this procedure. Consent: The risks and benefits of the procedure discussed with the patient's operations representative. Informed consent was obtained. A timeout procedure was performed. Patient was prepped and draped in sterile fashion. Ultrasound interrogation of the right neck revealed patency and compressibility of the right internal jugular vein. Under direct ultrasound guidance, a micropuncture needle was used to gain access to this vein after 1% Lidocaine was used to achieve local anesthesia. Reference ultrasound images first were in the medical record. The needle was exchanged over a wire for dilators followed by a triple-lumen central venous catheter which is advanced centrally. A chest radiograph was obtained demonstrating catheter tip at the cavoatrial junction. The catheter was then flushed, and sutured to the skin. No immediate complications were identified Impression: Successful ultrasound-guided placement of right internal jugular triple-lumen central venous catheter
--- NOTE | 2017-02-13 14:13 | RAD ---
Limited renal ultrasound 02/13/2017 Indication: Acute renal failure Comparison study: None Discussion: Ultrasound evaluation of the right kidney was performed. A small amount of perihepatic ascites is noted in the upper abdomen. Right kidney is unremarkable in appearance measuring approximately 11.6 cm in length. No hydronephrosis or obstructive uropathy is seen on the right. No focal renal lesion is seen on the right. Possible small component of right pleural effusion is noted. Small amount of ascites is seen in the left flank. Left kidney is poorly visualized this is most likely due to exam limitations including patient positioning, and automated external defibrillation pads being present during the exam. Also noted by the technologist is the presence of a rouleaux flow within the visualized inferior vena cava. Finding usually indicates a low flow state. Impression: 1. Unremarkable appearance of the right kidney 2. Nonvisualization of the left kidney, most likely reflecting exam limitations as described 3. Mild ascites 4. Probable small right effusion 5. Rouleaux flow within the visualized inferior vena cava. Finding usually indicates a low flow state.
[2017-02-13 14:15] LABS: HEMATOCRIT 41.3 % (36.0-47.0); HEMOGLOBIN 13.9 g/dL (12.0-15.5); RED BLOOD COUNT 4.19 x10^6/uL (3.50-5.40); RED CELL DISTRIBUTION WIDTH 12.7 % (11.5-14.5); WHITE BLOOD COUNT 13.7 x10^3/uL (4.0-11.0)
[2017-02-13 14:33] LABS: INR 2.8 (0.8-1.1); PROTHROMBIN TIME PATIENT 27.9 SEC (11.7-14.0)
--- NOTE | 2017-02-13 15:20 | RAD ---
Bilateral lower extremity venous ultrasound, 02/13/2017: History: Leg swelling, possible pulmonary emboli Duplex evaluation of the deep veins in the lower extremities was performed including grayscale, color-flow and spectral Doppler analysis. The femoral and popliteal veins demonstrate normal compressibility and normal responses to distal augmentation maneuvers. Color imaging of those vessels shows no evidence of intraluminal clot. There is sluggish appearing blood flow in the left femoral and popliteal veins producing a rouleaux phenomena. The visualized deep veins in both calves are patent. IMPRESSION: There is no sonographic evidence of deep vein thrombosis in either lower extremity.
[2017-02-13] MEDS: VANCOMYCIN PER PHARMACY MC PRN (16:50)
[2017-02-13 16:57] LABS: CALCIUM 7.5 mg/dL (8.5-10.1); CREATININE 1.7 mg/dL (0.6-1.0); GFR 37.9
[2017-02-13] MEDS ORDERED: ACETAMINOPHEN 650 MG SUPP.RECT. PR PRN (17:00)
[2017-02-13] MEDS ORDERED: ACETAMINOPHEN 650 MG/20.3 ML SOLUTION. NG PRN (17:00)
[2017-02-13 17:05] LABS: POTASSIUM 4.4 mmol/L (3.5-5.1)
[2017-02-13] MEDS ORDERED: VANCOMYCIN 750 MG in IV NORMAL SALINE 250ML 250 ML IV SCH (20:00)
[2017-02-13 20:56] LABS: CALCIUM 7.6 mg/dL (8.5-10.1); CREATININE 1.8 mg/dL (0.6-1.0); GFR 35.5
[2017-02-13 21:00] LABS: MAGNESIUM 1.9 mg/dL (1.8-2.4); PHOSPHORUS 4.2 mg/dL (2.6-4.7)
[2017-02-13 22:01] LABS: HEMATOCRIT 39.6 % (36.0-47.0); HEMOGLOBIN 13.5 g/dL (12.0-15.5); RED BLOOD COUNT 4.03 x10^6/uL (3.50-5.40); WHITE BLOOD COUNT 18.9 x10^3/uL (4.0-11.0)
[2017-02-13 22:11] LABS: INR 3.2 (0.8-1.1); PROTHROMBIN TIME PATIENT 30.7 SEC (11.7-14.0)
[2017-02-13 22:27] LABS: PARTIAL THROMBOPLASTIN TIME > 150 SEC (24-38)
[2017-02-14] VITALS (20 sets, daily range): BP systolic 96–144; BP diastolic 42–89
[2017-02-14 00:27] LABS: CALCIUM 7.5 mg/dL (8.5-10.1); CREATININE 2.1 mg/dL (0.6-1.0); GFR 29.7; POTASSIUM 4.3 mmol/L (3.5-5.1)
[2017-02-14 00:31] LABS: MAGNESIUM 1.9 mg/dL (1.8-2.4); PHOSPHORUS 4.3 mg/dL (2.6-4.7)
[2017-02-14] MEDS: IV DEXTROSE 5 %-0.2 % NACL 1,000 ML IV SCH ×2 (03:28→17:46)
[2017-02-14 04:07] LABS: CALCIUM 7.6 mg/dL (8.5-10.1); CREATININE 2.2 mg/dL (0.6-1.0); GFR 28.1; POTASSIUM 4.2 mmol/L (3.5-5.1)
[2017-02-14 04:11] LABS: MAGNESIUM 1.8 mg/dL (1.8-2.4); PHOSPHORUS 4.6 mg/dL (2.6-4.7)
[2017-02-14] MEDS: NOREPINEPHRIN PREMIX 250 ML IV PRN ×4 (05:21→20:54)
[2017-02-14] MEDS: PIPERACILLIN/TAZOBACTAM 3.375 GM in IV NORMAL SALINE 50ML 50 ML IV SCH ×4 (05:56→23:59)
[2017-02-14 06:24] LABS: ALBUMIN 1.8 g/dL (3.4-5.0); CREATININE 2.2 mg/dL (0.6-1.0); GFR 28.1; PHOSPHORUS 4.6 mg/dL (2.6-4.7); POTASSIUM 4.3 mmol/L (3.5-5.1)
[2017-02-14 06:32] LABS: HEMATOCRIT 38.4 % (36.0-47.0); HEMOGLOBIN 13.3 g/dL (12.0-15.5); RED BLOOD COUNT 3.95 x10^6/uL (3.50-5.40); RED CELL DISTRIBUTION WIDTH 13.4 % (11.5-14.5); WHITE BLOOD COUNT 22.4 x10^3/uL (4.0-11.0)
[2017-02-14 06:42] LABS: INR 3.1 (0.8-1.1); PROTHROMBIN TIME PATIENT 30.3 SEC (11.7-14.0)
[2017-02-14 07:23] LABS: PARTIAL THROMBOPLASTIN TIME > 150 SEC (24-38)
--- NOTE | 2017-02-14 07:57 | PDOC ---
Infectious Disease Note Vital Sign Vital Signs Vital Signs Date Time Temp Pulse Resp B/P (MAP) Pulse Ox O2 Delivery O2 Flow Rate FiO2 02/14/17 06:44 144/74 (97) 02/14/17 06:00 114 25 99 Ventilator 02/13/17 17:00 92.9 92.9 Labs Lab Laboratory Tests Test 02/13/17 08:00 02/13/17 09:15 02/13/17 12:45 02/13/17 14:05 Sodium Level 127 mmol/L (136-145) 130 mmol/L (136-145) Potassium Level 5.1 mmol/L (3.5-5.1) 4.1 mmol/L (3.5-5.1) Chloride Level 92 mmol/L (98-107) 96 mmol/L (98-107) Carbon Dioxide Level 23 mmol/L (21-32) 25 mmol/L (21-32) Anion Gap 12 (6-14) 9 (6-14) Blood Urea Nitrogen 25 mg/dL (7-20) 29 mg/dL (7-20) Creatinine 1.2 mg/dL (0.6-1.0) 1.5 mg/dL (0.6-1.0) Estimated GFR (Cockcroft-Gault) 56.6 43.8 Glucose Level 92 mg/dL (70-99) 92 mg/dL (70-99) Calcium Level 7.7 mg/dL (8.5-10.1) 7.6 mg/dL (8.5-10.1) Phosphorus Level 3.5 mg/dL (2.6-4.7) 3.7 mg/dL (2.6-4.7) Magnesium Level 2.1 mg/dL (1.8-2.4) 1.9 mg/dL (1.8-2.4) O2 Saturation 99 % (92-99) Arterial Blood pH 7.33 (7.35-7.45) Arterial Blood pH (Temp corrected) 7.39 Arterial Blood pCO2 at Patient Temp 43 mmHg (35-46) Arterial Blood pCO2 (Temp correct) 36 mmHg Arterial Blood pO2 at Patient Temp 148 mmHg (75-108) Arterial Blood pO2 (Temp corrected) 124 mmHg Arterial Blood HCO3 22 mmol/L (21-28) Arterial Blood Base Excess -4 mmol/L (-3-3) FiO2 50 Creatine Kinase 4039 U/L (26-192) White Blood Count 13.7 x10^3/uL (4.0-11.0) Red Blood Count 4.19 x10^6/uL (3.50-5.40) Hemoglobin 13.9 g/dL (12.0-15.5) Hematocrit 41.3 % (36.0-47.0) Mean Corpuscular Volume 99 fL (79-100) Mean Corpuscular Hemoglobin 33 pg (25-35) Mean Corpuscular Hemoglobin Concent 34 g/dL (31-37) Red Cell Distribution Width 12.7 % (11.5-14.5) Platelet Count 188 x10^3/uL (140-400) Prothrombin Time 27.9 SEC (11.7-14.0) Prothromb Time International Ratio 2.8 (0.8-1.1) Activated Partial Thromboplast Time 40 SEC (24-38) Test 02/13/17 16:00 02/13/17 18:40 02/13/17 20:30 02/13/17 21:50 Sodium Level 130 mmol/L (136-145) 129 mmol/L (136-145) 129 mmol/L (136-145) Potassium Level 4.4 mmol/L (3.5-5.1) 4.0 mmol/L (3.5-5.1) Chloride Level 95 mmol/L (98-107) 93 mmol/L (98-107) Carbon Dioxide Level 23 mmol/L (21-32) 23 mmol/L (21-32) Anion Gap 12 (6-14) 13 (6-14) Blood Urea Nitrogen 30 mg/dL (7-20) 34 mg/dL (7-20) Creatinine 1.7 mg/dL (0.6-1.0) 1.8 mg/dL (0.6-1.0) Estimated GFR (Cockcroft-Gault) 37.9 35.5 Glucose Level 133 mg/dL (70-99) 165 mg/dL (70-99) Calcium Level 7.5 mg/dL (8.5-10.1) 7.6 mg/dL (8.5-10.1) Phosphorus Level 4.0 mg/dL (2.6-4.7) 4.2 mg/dL (2.6-4.7) Magnesium Level 2.0 mg/dL (1.8-2.4) 1.9 mg/dL (1.8-2.4) Heparin Anti-Xa Act, Unfractionated 0.10 IU/mL (0.30-0.70) White Blood Count 18.9 x10^3/uL (4.0-11.0) Red Blood Count 4.03 x10^6/uL (3.50-5.40) Hemoglobin 13.5 g/dL (12.0-15.5) Hematocrit 39.6 % (36.0-47.0) Mean Corpuscular Volume 98 fL (79-100) Mean Corpuscular Hemoglobin 34 pg (25-35) Mean Corpuscular Hemoglobin Concent 34 g/dL (31-37) Red Cell Distribution Width 13.0 % (11.5-14.5) Platelet Count 168 x10^3/uL (140-400) Prothrombin Time 30.7 SEC (11.7-14.0) Prothromb Time International Ratio 3.2 (0.8-1.1) Activated Partial Thromboplast Time > 150 SEC (24-38) Test 02/14/17 00:01 02/14/17 01:55 02/14/17 03:45 02/14/17 05:25 Sodium Level 127 mmol/L (136-145) 128 mmol/L (136-145) 128 mmol/L (136-145) Potassium Level 4.3 mmol/L (3.5-5.1) 4.2 mmol/L (3.5-5.1) 4.3 mmol/L (3.5-5.1) Chloride Level 93 mmol/L (98-107) 93 mmol/L (98-107) 94 mmol/L (98-107) Carbon Dioxide Level 23 mmol/L (21-32) 23 mmol/L (21-32) 21 mmol/L (21-32) Anion Gap 11 (6-14) 12 (6-14) 13 (6-14) Blood Urea Nitrogen 34 mg/dL (7-20) 36 mg/dL (7-20) 37 mg/dL (7-20) Creatinine 2.1 mg/dL (0.6-1.0) 2.2 mg/dL (0.6-1.0) 2.2 mg/dL (0.6-1.0) Estimated GFR (Cockcroft-Gault) 29.7 28.1 28.1 Glucose Level 174 mg/dL (70-99) 148 mg/dL (70-99) 144 mg/dL (70-99) Calcium Level 7.5 mg/dL (8.5-10.1) 7.6 mg/dL (8.5-10.1) 7.0 mg/dL (8.5-10.1) Phosphorus Level 4.3 mg/dL (2.6-4.7) 4.6 mg/dL (2.6-4.7) 4.6 mg/dL (2.6-4.7) Magnesium Level 1.9 mg/dL (1.8-2.4) 1.8 mg/dL (1.8-2.4) 1.8 mg/dL (1.8-2.4) Heparin Anti-Xa Act, Unfractionated 0.28 IU/mL (0.30-0.70) White Blood Count 22.4 x10^3/uL (4.0-11.0) Red Blood Count 3.95 x10^6/uL (3.50-5.40) Hemoglobin 13.3 g/dL (12.0-15.5) Hematocrit 38.4 % (36.0-47.0) Mean Corpuscular Volume 97 fL (79-100) Mean Corpuscular Hemoglobin 34 pg (25-35) Mean Corpuscular Hemoglobin Concent 35 g/dL (31-37) Red Cell Distribution Width 13.4 % (11.5-14.5) Platelet Count 174 x10^3/uL (140-400) Prothrombin Time 30.3 SEC (11.7-14.0) Prothromb Time International Ratio 3.1 (0.8-1.1) Activated Partial Thromboplast Time > 150 SEC (24-38) Lactic Acid Level 2.0 mmol/L (0.4-2.0) Albumin 1.8 g/dL (3.4-5.0) Objective Assessment S/P Cardiac arrest Respiratory failure COPD Leukocytosis DARYA Schizophrenia Plan Plan of Care cont zosyn stop vancomycin since there is no urine out pt check cultures MILAGROS GREER MD Feb 14, 2017 07:56
[2017-02-14 08:08] LABS: HCO3 ABG 17 mmol/L (21-28); PCO2 ABG 40 mmHg (35-46); PH ABG 7.24 (7.35-7.45); PO2 ABG 93 mmHg (75-108); SAT O2 ABG 96 % (92-99)
[2017-02-14 08:11] LABS: FIO2 ABG 40
--- NOTE | 2017-02-14 09:32 | CONS ---
DATE OF CONSULTATION: 02/14/2017 REQUESTING PHYSICIAN: Dr. Agee. REASON FOR CONSULTATION: Possible sepsis. HISTORY OF PRESENT ILLNESS: This is a 56-year-old female who has history of schizophrenia and COPD, who was [facility] in [facility] the [facility]. She had a cardiac arrest. The patient was intubated and CPR was done, and the patient was initially found to be in asystole. It appears to be that code blue was for 20 minutes. The patient was revived and brought in ICU. The patient had slight leukocytosis initially. Steroid was given. She underwent hypothermia protocol. White count is high now, does have acute renal failure. MRSA screen is positive and patchy bilateral infiltrates seen. The patient is not able to provide information as she is not responsive yet. The patient is on significant vasopressor support and orally intubated on a ventilator. No nausea, vomiting, diarrhea noted by nursing. REVIEW OF SYSTEMS: Unable to obtain. PAST MEDICAL HISTORY: Positive for schizophrenia and COPD. SOCIAL HISTORY: The patient is from detention facility. No other social history obtainable. ALLERGIES: SHE IS LISTED ALLERGIC TO DIVALPROEX. CURRENT MEDICATIONS: Reviewed. The patient is on vancomycin and Zosyn. PHYSICAL EXAMINATION: GENERAL: Unresponsive female on vasopressor supports, not in distress. VITAL SIGNS: Stable, afebrile. HEENT: NAD. Both pupils are round and reacting. No conjunctival lesion. Mouth cannot be visualized, orally intubated. NECK: Supple, no JVP, no lymphadenopathy. LUNGS: Decreased breath sounds bilaterally. HEART: S1, S2 regular. No gallop or murmur. ABDOMEN: Soft, nontender, no organomegaly. EXTREMITIES: No edema or cyanosis. SKIN: Unremarkable. NEUROLOGIC: The patient is currently unresponsive on a ventilator. LABORATORY DATA: White count is 22.4, BUN 37, creatinine 2.2. The patient had lactic acid of 12.9. Toxicology screen is negative. Urinalysis is negative. MRSA screen is positive. Blood culture is negative so far. IMAGING: Chest x-ray showed patchy infiltrates. CT of the head was negative for any bleed. IMPRESSION: 1. Cardiac arrest with asystole, status post resuscitation. 2. Respiratory failure. 3. Circulatory failure. 4. Chronic obstructive pulmonary disease. 5. Leukocytosis. 6. Acute kidney injury. 7. Schizophrenia. RECOMMENDATIONS: Recommend continuing Zosyn, will stop vancomycin since there is no urine output. The level is going to be high. We will check cultures, supportive care and we will continue to follow. Overall, prognosis is poor. Thank you very much, Dr. Agee, for giving me the opportunity to participate in this patient's care. MILAGROS GREER MD DR: BLANCA/kelley JOB#: [id number] / [id number]
--- NOTE | 2017-02-14 09:42 | PDOC ---
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 LAbs better, Trace leuk esterase, bacteria on urine TRiggers sepsis criteria VANc dcd bec OLIGURIC PLAN: Throughts of ischemic work up by cards On heparin bgtt per cards Wean off pressors MOntior UO and lytes - so far no UO MUltispecialsists on case CAnt do heparin or DVT prophy INR 3.,1 - no bleeding ON scds On IV pepcid Further recs pending course Dw SCREENING REPRESENTATIVE Vitals Vitals Vital Signs Date Time Temp Pulse Resp B/P (MAP) Pulse Ox O2 Delivery O2 Flow Rate FiO2 02/14/17 07:32 100 Ventilator 02/14/17 06:44 144/74 (97) 02/14/17 06:00 114 25 02/13/17 17:00 92.9 92.9 Physical Exam General: Other (sedated; hypothermic) Heart: Regular rate (SR), Other (distant heart sounds) Lungs: Other Abdomen: Soft, Other (NGT with coffee ground gastric contents. ) Extremities: No edema Skin: No breakdown, No significant lesion Labs LABS Laboratory Tests Test 02/13/17 12:45 02/13/17 14:05 02/13/17 16:00 02/13/17 18:40 Sodium Level 130 mmol/L (136-145) 130 mmol/L (136-145) 129 mmol/L (136-145) Potassium Level 4.1 mmol/L (3.5-5.1) 4.4 mmol/L (3.5-5.1) Chloride Level 96 mmol/L (98-107) 95 mmol/L (98-107) Carbon Dioxide Level 25 mmol/L (21-32) 23 mmol/L (21-32) Anion Gap 9 (6-14) 12 (6-14) Blood Urea Nitrogen 29 mg/dL (7-20) 30 mg/dL (7-20) Creatinine 1.5 mg/dL (0.6-1.0) 1.7 mg/dL (0.6-1.0) Estimated GFR (Cockcroft-Gault) 43.8 37.9 Glucose Level 92 mg/dL (70-99) 133 mg/dL (70-99) Calcium Level 7.6 mg/dL (8.5-10.1) 7.5 mg/dL (8.5-10.1) Phosphorus Level 3.7 mg/dL (2.6-4.7) 4.0 mg/dL (2.6-4.7) Magnesium Level 1.9 mg/dL (1.8-2.4) 2.0 mg/dL (1.8-2.4) Creatine Kinase 4039 U/L (26-192) White Blood Count 13.7 x10^3/uL (4.0-11.0) Red Blood Count 4.19 x10^6/uL (3.50-5.40) Hemoglobin 13.9 g/dL (12.0-15.5) Hematocrit 41.3 % (36.0-47.0) Mean Corpuscular Volume 99 fL (79-100) Mean Corpuscular Hemoglobin 33 pg (25-35) Mean Corpuscular Hemoglobin Concent 34 g/dL (31-37) Red Cell Distribution Width 12.7 % (11.5-14.5) Platelet Count 188 x10^3/uL (140-400) Prothrombin Time 27.9 SEC (11.7-14.0) Prothromb Time International Ratio 2.8 (0.8-1.1) Activated Partial Thromboplast Time 40 SEC (24-38) Heparin Anti-Xa Act, Unfractionated 0.10 IU/mL (0.30-0.70) Test 02/13/17 20:30 02/13/17 21:50 02/14/17 00:01 02/14/17 01:55 Sodium Level 129 mmol/L (136-145) 127 mmol/L (136-145) Potassium Level 4.0 mmol/L (3.5-5.1) 4.3 mmol/L (3.5-5.1) Chloride Level 93 mmol/L (98-107) 93 mmol/L (98-107) Carbon Dioxide Level 23 mmol/L (21-32) 23 mmol/L (21-32) Anion Gap 13 (6-14) 11 (6-14) Blood Urea Nitrogen 34 mg/dL (7-20) 34 mg/dL (7-20) Creatinine 1.8 mg/dL (0.6-1.0) 2.1 mg/dL (0.6-1.0) Estimated GFR (Cockcroft-Gault) 35.5 29.7 Glucose Level 165 mg/dL (70-99) 174 mg/dL (70-99) Calcium Level 7.6 mg/dL (8.5-10.1) 7.5 mg/dL (8.5-10.1) Phosphorus Level 4.2 mg/dL (2.6-4.7) 4.3 mg/dL (2.6-4.7) Magnesium Level 1.9 mg/dL (1.8-2.4) 1.9 mg/dL (1.8-2.4) White Blood Count 18.9 x10^3/uL (4.0-11.0) Red Blood Count 4.03 x10^6/uL (3.50-5.40) Hemoglobin 13.5 g/dL (12.0-15.5) Hematocrit 39.6 % (36.0-47.0) Mean Corpuscular Volume 98 fL (79-100) Mean Corpuscular Hemoglobin 34 pg (25-35) Mean Corpuscular Hemoglobin Concent 34 g/dL (31-37) Red Cell Distribution Width 13.0 % (11.5-14.5) Platelet Count 168 x10^3/uL (140-400) Prothrombin Time 30.7 SEC (11.7-14.0) Prothromb Time International Ratio 3.2 (0.8-1.1) Activated Partial Thromboplast Time > 150 SEC (24-38) Heparin Anti-Xa Act, Unfractionated 0.28 IU/mL (0.30-0.70) Test 02/14/17 03:45 02/14/17 05:25 02/14/17 07:30 Sodium Level 128 mmol/L (136-145) 128 mmol/L (136-145) Potassium Level 4.2 mmol/L (3.5-5.1) 4.3 mmol/L (3.5-5.1) Chloride Level 93 mmol/L (98-107) 94 mmol/L (98-107) Carbon Dioxide Level 23 mmol/L (21-32) 21 mmol/L (21-32) Anion Gap 12 (6-14) 13 (6-14) Blood Urea Nitrogen 36 mg/dL (7-20) 37 mg/dL (7-20) Creatinine 2.2 mg/dL (0.6-1.0) 2.2 mg/dL (0.6-1.0) Estimated GFR (Cockcroft-Gault) 28.1 28.1 Glucose Level 148 mg/dL (70-99) 144 mg/dL (70-99) Calcium Level 7.6 mg/dL (8.5-10.1) 7.0 mg/dL (8.5-10.1) Phosphorus Level 4.6 mg/dL (2.6-4.7) 4.6 mg/dL (2.6-4.7) Magnesium Level 1.8 mg/dL (1.8-2.4) 1.8 mg/dL (1.8-2.4) White Blood Count 22.4 x10^3/uL (4.0-11.0) Red Blood Count 3.95 x10^6/uL (3.50-5.40) Hemoglobin 13.3 g/dL (12.0-15.5) Hematocrit 38.4 % (36.0-47.0) Mean Corpuscular Volume 97 fL (79-100) Mean Corpuscular Hemoglobin 34 pg (25-35) Mean Corpuscular Hemoglobin Concent 35 g/dL (31-37) Red Cell Distribution Width 13.4 % (11.5-14.5) Platelet Count 174 x10^3/uL (140-400) Prothrombin Time 30.3 SEC (11.7-14.0) Prothromb Time International Ratio 3.1 (0.8-1.1) Activated Partial Thromboplast Time > 150 SEC (24-38) Lactic Acid Level 2.0 mmol/L (0.4-2.0) Albumin 1.8 g/dL (3.4-5.0) O2 Saturation 96 % (92-99) Arterial Blood pH 7.24 (7.35-7.45) Arterial Blood pCO2 at Patient Temp 40 mmHg (35-46) Arterial Blood pO2 at Patient Temp 93 mmHg (75-108) Arterial Blood HCO3 17 mmol/L (21-28) Arterial Blood Base Excess -10 mmol/L (-3-3) FiO2 40 Review of Systems Review of Systems intubate,d sedated Assessment and Plan Assessmemt and Plan Problems Medical Problems: (1) Cardiac arrest Status: Acute (2) Elevated troponin Status: Acute (3) Hyperkalemia Status: Acute (4) Hypoglycemia Status: Acute (5) Hyponatremia Status: Acute Problems: Comment Review of Relevant I have reviewed the following items reji (where applicable) has been applied. Labs Laboratory Tests Test 02/12/17 15:24 02/12/17 15:45 02/12/17 15:49 02/12/17 15:50 White Blood Count 12.7 x10^3/uL (4.0-11.0) Red Blood Count 3.69 x10^6/uL (3.50-5.40) Hemoglobin 12.3 g/dL (12.0-15.5) Hematocrit 37.4 % (36.0-47.0) Mean Corpuscular Volume 102 fL (79-100) Mean Corpuscular Hemoglobin 33 pg (25-35) Mean Corpuscular Hemoglobin Concent 33 g/dL (31-37) Red Cell Distribution Width 13.1 % (11.5-14.5) Platelet Count 212 x10^3/uL (140-400) Neutrophils (%) (Auto) 88 % (31-73) Lymphocytes (%) (Auto) 9 % (24-48) Monocytes (%) (Auto) 3 % (0-9) Eosinophils (%) (Auto) 0 % (0-3) Basophils (%) (Auto) 0 % (0-3) Neutrophils # (Auto) 11.1 x10^3uL (1.8-7.7) Lymphocytes # (Auto) 1.1 x10^3/uL (1.0-4.8) Monocytes # (Auto) 0.4 x10^3/uL (0.0-1.1) Eosinophils # (Auto) 0.0 x10^3/uL (0.0-0.7) Basophils # (Auto) 0.1 x10^3/uL (0.0-0.2) Segmented Neutrophils % 37 % (35-66) Band Neutrophils % 44 % (0-9) Lymphocytes % 4 % (24-48) Atypical Lymphocytes % (Manual) 5 % (0-0) Monocytes % 5 % (0-10) Basophils % 1 % (0-3) Metamyelocytes % 4 % (0-0) Toxic Granulation Present Dohle Bodies Present Platelet Estimate Adequate (ADEQUATE) Large Platelets Present Polychromasia Slight Poikilocytosis Slight Anisocytosis Slight Macrocytosis Slight Target Cells Tear Drop Cells Occ Ovalocytes Occ Crenated Cell Present Sodium Level 117 mmol/L (136-145) Potassium Level 7.2 mmol/L (3.5-5.1) Chloride Level 81 mmol/L (98-107) Carbon Dioxide Level 23 mmol/L (21-32) Anion Gap 13 (6-14) Blood Urea Nitrogen 15 mg/dL (7-20) Creatinine 1.0 mg/dL (0.6-1.0) Estimated GFR (Cockcroft-Gault) 69.9 Glucose Level 20 mg/dL (70-99) Lactic Acid Level 12.9 mmol/L (0.4-2.0) Calcium Level 9.6 mg/dL (8.5-10.1) Total Bilirubin 0.8 mg/dL (0.2-1.0) Direct Bilirubin 0.3 mg/dL (0.0-0.2) Aspartate Amino Transf (AST/SGOT) 554 U/L (15-37) Alanine Aminotransferase (ALT/SGPT) 305 U/L (14-59) Alkaline Phosphatase 95 U/L (46-116) Bedside Troponin I 0.78 ng/ml (<0.08) Troponin I Quantitative 1.352 ng/mL (0.000-0.055) HL-Ucv-Q-Type Natriuretic Peptide 31027 pg/mL (0-124) Total Protein 6.9 g/dL (6.4-8.2) Albumin 2.9 g/dL (3.4-5.0) Lipase 43 U/L (73-393) Glucose (Fingerstick) 209 mg/dL (70-99) Urine Collection Type Unknown Urine Color Yellow Urine Clarity Cloudy Urine pH 5.5 Urine Specific [employer] 1.010 Urine Protein 30 mg/dL (NEG-TRACE) Urine Glucose (UA) Negative mg/dL (NEG) Urine Ketones (Stick) Negative mg/dL (NEG) Urine Blood Moderate (NEG) Urine Nitrite Negative (NEG) Urine Bilirubin Negative (NEG) Urine Urobilinogen Dipstick 0.2 mg/dL (0.2 mg/dL) Urine Leukocyte Esterase Trace (NEG) Urine RBC 1-2 /HPF (0-2) Urine WBC 1-4 /HPF (0-4) Urine Squamous Epithelial Cells Occ /LPF Urine Bacteria Many /HPF (0-FEW) Urine Hyaline Casts Occasional /HPF Urine Opiates Screen Neg (NEG) Urine Methadone Screen Neg (NEG) Urine Barbiturates Neg (NEG) Urine Phencyclidine Screen Neg (NEG) Urine Amphetamine/Methamphetamine Neg (NEG) Urine Benzodiazepines Screen Neg (NEG) Urine Cocaine Screen Neg (NEG) Urine Cannabinoids Screen Neg (NEG) Urine Ethyl Alcohol Neg (NEG) O2 Saturation 99 % (92-99) Arterial Blood pH 7.03 (7.35-7.45) Arterial Blood pCO2 at Patient Temp 62 mmHg (35-46) Arterial Blood pO2 at Patient Temp 493 mmHg (75-108) Arterial Blood HCO3 16 mmol/L (21-28) Arterial Blood Base Excess -15 mmol/L (-3-3) Oxyhemoglobin 95.3 % Methemoglobin 0.5 % (0.0-1.9) Carbon Monoxide, Quantitative 3.1 % (0.0-1.9) FiO2 100 Test 02/12/17 16:29 02/12/17 17:19 02/12/17 17:30 02/12/17 19:00 Glucose (Fingerstick) 140 mg/dL (70-99) Sodium Level 118 mmol/L (136-145) Potassium Level 5.7 mmol/L (3.5-5.1) Chloride Level 86 mmol/L (98-107) Carbon Dioxide Level 20 mmol/L (21-32) Anion Gap 12 (6-14) Blood Urea Nitrogen 16 mg/dL (7-20) Creatinine 1.2 mg/dL (0.6-1.0) Estimated GFR (Cockcroft-Gault) 56.6 Glucose Level 115 mg/dL (70-99) Calcium Level 8.9 mg/dL (8.5-10.1) Thyroid Stimulating Hormone (TSH) 3.671 uIU/mL (0.358-3.74) O2 Saturation 99 % (92-99) Arterial Blood pH 7.11 (7.35-7.45) Arterial Blood pCO2 at Patient Temp 59 mmHg (35-46) Arterial Blood pO2 at Patient Temp 199 mmHg (75-108) Arterial Blood HCO3 18 mmol/L (21-28) Arterial Blood Base Excess -11 mmol/L (-3-3) FiO2 60 Nasal Screen MRSA (PCR) Positive (Negative) Test 02/12/17 19:30 02/12/17 23:40 02/13/17 03:55 02/13/17 05:50 White Blood Count 14.8 x10^3/uL (4.0-11.0) 9.4 x10^3/uL (4.0-11.0) Red Blood Count 3.46 x10^6/uL (3.50-5.40) 3.51 x10^6/uL (3.50-5.40) Hemoglobin 11.8 g/dL (12.0-15.5) 12.1 g/dL (12.0-15.5) Hematocrit 33.5 % (36.0-47.0) 34.1 % (36.0-47.0) Mean Corpuscular Volume 97 fL (79-100) 97 fL (79-100) Mean Corpuscular Hemoglobin 34 pg (25-35) 35 pg (25-35) Mean Corpuscular Hemoglobin Concent 35 g/dL (31-37) 36 g/dL (31-37) Red Cell Distribution Width 13.9 % (11.5-14.5) 13.1 % (11.5-14.5) Platelet Count 261 x10^3/uL (140-400) 169 x10^3/uL (140-400) Prothrombin Time 25.3 SEC (11.7-14.0) 26.7 SEC (11.7-14.0) Prothromb Time International Ratio 2.5 (0.8-1.1) 2.7 (0.8-1.1) Activated Partial Thromboplast Time 37 SEC (24-38) 31 SEC (24-38) Sodium Level 121 mmol/L (136-145) 126 mmol/L (136-145) 128 mmol/L (136-145) Potassium Level 5.7 mmol/L (3.5-5.1) 4.3 mmol/L (3.5-5.1) 4.3 mmol/L (3.5-5.1) Chloride Level 89 mmol/L (98-107) 89 mmol/L (98-107) 93 mmol/L (98-107) Carbon Dioxide Level 25 mmol/L (21-32) 26 mmol/L (21-32) 27 mmol/L (21-32) Anion Gap 7 (6-14) 11 (6-14) 8 (6-14) Blood Urea Nitrogen 17 mg/dL (7-20) 22 mg/dL (7-20) 25 mg/dL (7-20) Creatinine 1.2 mg/dL (0.6-1.0) 1.2 mg/dL (0.6-1.0) 1.4 mg/dL (0.6-1.0) Estimated GFR (Cockcroft-Gault) 56.6 56.6 47.4 Glucose Level 111 mg/dL (70-99) 112 mg/dL (70-99) 107 mg/dL (70-99) Lactic Acid Level 5.5 mmol/L (0.4-2.0) Calcium Level 8.3 mg/dL (8.5-10.1) 8.3 mg/dL (8.5-10.1) 8.1 mg/dL (8.5-10.1) Phosphorus Level 6.7 mg/dL (2.6-4.7) 3.7 mg/dL (2.6-4.7) 3.7 mg/dL (2.6-4.7) Magnesium Level 2.1 mg/dL (1.8-2.4) 1.8 mg/dL (1.8-2.4) 1.8 mg/dL (1.8-2.4) Total Bilirubin 2.9 mg/dL (0.2-1.0) Direct Bilirubin 2.0 mg/dL (0.0-0.2) Aspartate Amino Transf (AST/SGOT) 8606 U/L (15-37) Alanine Aminotransferase (ALT/SGPT) 3966 U/L (14-59) Alkaline Phosphatase 89 U/L (46-116) Total Protein 5.3 g/dL (6.4-8.2) Albumin 2.2 g/dL (3.4-5.0) Test 02/13/17 08:00 02/13/17 09:15 02/13/17 12:45 02/13/17 14:05 Sodium Level 127 mmol/L (136-145) 130 mmol/L (136-145) Potassium Level 5.1 mmol/L (3.5-5.1) 4.1 mmol/L (3.5-5.1) Chloride Level 92 mmol/L (98-107) 96 mmol/L (98-107) Carbon Dioxide Level 23 mmol/L (21-32) 25 mmol/L (21-32) Anion Gap 12 (6-14) 9 (6-14) Blood Urea Nitrogen 25 mg/dL (7-20) 29 mg/dL (7-20) Creatinine 1.2 mg/dL (0.6-1.0) 1.5 mg/dL (0.6-1.0) Estimated GFR (Cockcroft-Gault) 56.6 43.8 Glucose Level 92 mg/dL (70-99) 92 mg/dL (70-99) Calcium Level 7.7 mg/dL (8.5-10.1) 7.6 mg/dL (8.5-10.1) Phosphorus Level 3.5 mg/dL (2.6-4.7) 3.7 mg/dL (2.6-4.7) Magnesium Level 2.1 mg/dL (1.8-2.4) 1.9 mg/dL (1.8-2.4) O2 Saturation 99 % (92-99) Arterial Blood pH 7.33 (7.35-7.45) Arterial Blood pH (Temp corrected) 7.39 Arterial Blood pCO2 at Patient Temp 43 mmHg (35-46) Arterial Blood pCO2 (Temp correct) 36 mmHg Arterial Blood pO2 at Patient Temp 148 mmHg (75-108) Arterial Blood pO2 (Temp corrected) 124 mmHg Arterial Blood HCO3 22 mmol/L (21-28) Arterial Blood Base Excess -4 mmol/L (-3-3) FiO2 50 Creatine Kinase 4039 U/L (26-192) White Blood Count 13.7 x10^3/uL (4.0-11.0) Red Blood Count 4.19 x10^6/uL (3.50-5.40) Hemoglobin 13.9 g/dL (12.0-15.5) Hematocrit 41.3 % (36.0-47.0) Mean Corpuscular Volume 99 fL (79-100) Mean Corpuscular Hemoglobin 33 pg (25-35) Mean Corpuscular Hemoglobin Concent 34 g/dL (31-37) Red Cell Distribution Width 12.7 % (11.5-14.5) Platelet Count 188 x10^3/uL (140-400) Prothrombin Time 27.9 SEC (11.7-14.0) Prothromb Time International Ratio 2.8 (0.8-1.1) Activated Partial Thromboplast Time 40 SEC (24-38) Test 02/13/17 16:00 02/13/17 18:40 02/13/17 20:30 02/13/17 21:50 Sodium Level 130 mmol/L (136-145) 129 mmol/L (136-145) 129 mmol/L (136-145) Potassium Level 4.4 mmol/L (3.5-5.1) 4.0 mmol/L (3.5-5.1) Chloride Level 95 mmol/L (98-107) 93 mmol/L (98-107) Carbon Dioxide Level 23 mmol/L (21-32) 23 mmol/L (21-32) Anion Gap 12 (6-14) 13 (6-14) Blood Urea Nitrogen 30 mg/dL (7-20) 34 mg/dL (7-20) Creatinine 1.7 mg/dL (0.6-1.0) 1.8 mg/dL (0.6-1.0) Estimated GFR (Cockcroft-Gault) 37.9 35.5 Glucose Level 133 mg/dL (70-99) 165 mg/dL (70-99) Calcium Level 7.5 mg/dL (8.5-10.1) 7.6 mg/dL (8.5-10.1) Phosphorus Level 4.0 mg/dL (2.6-4.7) 4.2 mg/dL (2.6-4.7) Magnesium Level 2.0 mg/dL (1.8-2.4) 1.9 mg/dL (1.8-2.4) Heparin Anti-Xa Act, Unfractionated 0.10 IU/mL (0.30-0.70) White Blood Count 18.9 x10^3/uL (4.0-11.0) Red Blood Count 4.03 x10^6/uL (3.50-5.40) Hemoglobin 13.5 g/dL (12.0-15.5) Hematocrit 39.6 % (36.0-47.0) Mean Corpuscular Volume 98 fL (79-100) Mean Corpuscular Hemoglobin 34 pg (25-35) Mean Corpuscular Hemoglobin Concent 34 g/dL (31-37) Red Cell Distribution Width 13.0 % (11.5-14.5) Platelet Count 168 x10^3/uL (140-400) Prothrombin Time 30.7 SEC (11.7-14.0) Prothromb Time International Ratio 3.2 (0.8-1.1) Activated Partial Thromboplast Time > 150 SEC (24-38) Test 02/14/17 00:01 02/14/17 01:55 02/14/17 03:45 02/14/17 05:25 Sodium Level 127 mmol/L (136-145) 128 mmol/L (136-145) 128 mmol/L (136-145) Potassium Level 4.3 mmol/L (3.5-5.1) 4.2 mmol/L (3.5-5.1) 4.3 mmol/L (3.5-5.1) Chloride Level 93 mmol/L (98-107) 93 mmol/L (98-107) 94 mmol/L (98-107) Carbon Dioxide Level 23 mmol/L (21-32) 23 mmol/L (21-32) 21 mmol/L (21-32) Anion Gap 11 (6-14) 12 (6-14) 13 (6-14) Blood Urea Nitrogen 34 mg/dL (7-20) 36 mg/dL (7-20) 37 mg/dL (7-20) Creatinine 2.1 mg/dL (0.6-1.0) 2.2 mg/dL (0.6-1.0) 2.2 mg/dL (0.6-1.0) Estimated GFR (Cockcroft-Gault) 29.7 28.1 28.1 Glucose Level 174 mg/dL (70-99) 148 mg/dL (70-99) 144 mg/dL (70-99) Calcium Level 7.5 mg/dL (8.5-10.1) 7.6 mg/dL (8.5-10.1) 7.0 mg/dL (8.5-10.1) Phosphorus Level 4.3 mg/dL (2.6-4.7) 4.6 mg/dL (2.6-4.7) 4.6 mg/dL (2.6-4.7) Magnesium Level 1.9 mg/dL (1.8-2.4) 1.8 mg/dL (1.8-2.4) 1.8 mg/dL (1.8-2.4) Heparin Anti-Xa Act, Unfractionated 0.28 IU/mL (0.30-0.70) White Blood Count 22.4 x10^3/uL (4.0-11.0) Red Blood Count 3.95 x10^6/uL (3.50-5.40) Hemoglobin 13.3 g/dL (12.0-15.5) Hematocrit 38.4 % (36.0-47.0) Mean Corpuscular Volume 97 fL (79-100) Mean Corpuscular Hemoglobin 34 pg (25-35) Mean Corpuscular Hemoglobin Concent 35 g/dL (31-37) Red Cell Distribution Width 13.4 % (11.5-14.5) Platelet Count 174 x10^3/uL (140-400) Prothrombin Time 30.3 SEC (11.7-14.0) Prothromb Time International Ratio 3.1 (0.8-1.1) Activated Partial Thromboplast Time > 150 SEC (24-38) Lactic Acid Level 2.0 mmol/L (0.4-2.0) Albumin 1.8 g/dL (3.4-5.0) Test 02/14/17 07:30 O2 Saturation 96 % (92-99) Arterial Blood pH 7.24 (7.35-7.45) Arterial Blood pCO2 at Patient Temp 40 mmHg (35-46) Arterial Blood pO2 at Patient Temp 93 mmHg (75-108) Arterial Blood HCO3 17 mmol/L (21-28) Arterial Blood Base Excess -10 mmol/L (-3-3) FiO2 40 Laboratory Tests Test 02/13/17 12:45 02/13/17 14:05 02/13/17 16:00 02/13/17 18:40 Sodium Level 130 mmol/L (136-145) 130 mmol/L (136-145) 129 mmol/L (136-145) Potassium Level 4.1 mmol/L (3.5-5.1) 4.4 mmol/L (3.5-5.1) Chloride Level 96 mmol/L (98-107) 95 mmol/L (98-107) Carbon Dioxide Level 25 mmol/L (21-32) 23 mmol/L (21-32) Anion Gap 9 (6-14) 12 (6-14) Blood Urea Nitrogen 29 mg/dL (7-20) 30 mg/dL (7-20) Creatinine 1.5 mg/dL (0.6-1.0) 1.7 mg/dL (0.6-1.0) Estimated GFR (Cockcroft-Gault) 43.8 37.9 Glucose Level 92 mg/dL (70-99) 133 mg/dL (70-99) Calcium Level 7.6 mg/dL (8.5-10.1) 7.5 mg/dL (8.5-10.1) Phosphorus Level 3.7 mg/dL (2.6-4.7) 4.0 mg/dL (2.6-4.7) Magnesium Level 1.9 mg/dL (1.8-2.4) 2.0 mg/dL (1.8-2.4) Creatine Kinase 4039 U/L (26-192) White Blood Count 13.7 x10^3/uL (4.0-11.0) Red Blood Count 4.19 x10^6/uL (3.50-5.40) Hemoglobin 13.9 g/dL (12.0-15.5) Hematocrit 41.3 % (36.0-47.0) Mean Corpuscular Volume 99 fL (79-100) Mean Corpuscular Hemoglobin 33 pg (25-35) Mean Corpuscular Hemoglobin Concent 34 g/dL (31-37) Red Cell Distribution Width 12.7 % (11.5-14.5) Platelet Count 188 x10^3/uL (140-400) Prothrombin Time 27.9 SEC (11.7-14.0) Prothromb Time International Ratio 2.8 (0.8-1.1) Activated Partial Thromboplast Time 40 SEC (24-38) Heparin Anti-Xa Act, Unfractionated 0.10 IU/mL (0.30-0.70) Test 02/13/17 20:30 02/13/17 21:50 02/14/17 00:01 02/14/17 01:55 Sodium Level 129 mmol/L (136-145) 127 mmol/L (136-145) Potassium Level 4.0 mmol/L (3.5-5.1) 4.3 mmol/L (3.5-5.1) Chloride Level 93 mmol/L (98-107) 93 mmol/L (98-107) Carbon Dioxide Level 23 mmol/L (21-32) 23 mmol/L (21-32) Anion Gap 13 (6-14) 11 (6-14) Blood Urea Nitrogen 34 mg/dL (7-20) 34 mg/dL (7-20) Creatinine 1.8 mg/dL (0.6-1.0) 2.1 mg/dL (0.6-1.0) Estimated GFR (Cockcroft-Gault) 35.5 29.7 Glucose Level 165 mg/dL (70-99) 174 mg/dL (70-99) Calcium Level 7.6 mg/dL (8.5-10.1) 7.5 mg/dL (8.5-10.1) Phosphorus Level 4.2 mg/dL (2.6-4.7) 4.3 mg/dL (2.6-4.7) Magnesium Level 1.9 mg/dL (1.8-2.4) 1.9 mg/dL (1.8-2.4) White Blood Count 18.9 x10^3/uL (4.0-11.0) Red Blood Count 4.03 x10^6/uL (3.50-5.40) Hemoglobin 13.5 g/dL (12.0-15.5) Hematocrit 39.6 % (36.0-47.0) Mean Corpuscular Volume 98 fL (79-100) Mean Corpuscular Hemoglobin 34 pg (25-35) Mean Corpuscular Hemoglobin Concent 34 g/dL (31-37) Red Cell Distribution Width 13.0 % (11.5-14.5) Platelet Count 168 x10^3/uL (140-400) Prothrombin Time 30.7 SEC (11.7-14.0) Prothromb Time International Ratio 3.2 (0.8-1.1) Activated Partial Thromboplast Time > 150 SEC (24-38) Heparin Anti-Xa Act, Unfractionated 0.28 IU/mL (0.30-0.70) Test 02/14/17 03:45 02/14/17 05:25 02/14/17 07:30 Sodium Level 128 mmol/L (136-145) 128 mmol/L (136-145) Potassium Level 4.2 mmol/L (3.5-5.1) 4.3 mmol/L (3.5-5.1) Chloride Level 93 mmol/L (98-107) 94 mmol/L (98-107) Carbon Dioxide Level 23 mmol/L (21-32) 21 mmol/L (21-32) Anion Gap 12 (6-14) 13 (6-14) Blood Urea Nitrogen 36 mg/dL (7-20) 37 mg/dL (7-20) Creatinine 2.2 mg/dL (0.6-1.0) 2.2 mg/dL (0.6-1.0) Estimated GFR (Cockcroft-Gault) 28.1 28.1 Glucose Level 148 mg/dL (70-99) 144 mg/dL (70-99) Calcium Level 7.6 mg/dL (8.5-10.1) 7.0 mg/dL (8.5-10.1) Phosphorus Level 4.6 mg/dL (2.6-4.7) 4.6 mg/dL (2.6-4.7) Magnesium Level 1.8 mg/dL (1.8-2.4) 1.8 mg/dL (1.8-2.4) White Blood Count 22.4 x10^3/uL (4.0-11.0) Red Blood Count 3.95 x10^6/uL (3.50-5.40) Hemoglobin 13.3 g/dL (12.0-15.5) Hematocrit 38.4 % (36.0-47.0) Mean Corpuscular Volume 97 fL (79-100) Mean Corpuscular Hemoglobin 34 pg (25-35) Mean Corpuscular Hemoglobin Concent 35 g/dL (31-37) Red Cell Distribution Width 13.4 % (11.5-14.5) Platelet Count 174 x10^3/uL (140-400) Prothrombin Time 30.3 SEC (11.7-14.0) Prothromb Time International Ratio 3.1 (0.8-1.1) Activated Partial Thromboplast Time > 150 SEC (24-38) Lactic Acid Level 2.0 mmol/L (0.4-2.0) Albumin 1.8 g/dL (3.4-5.0) O2 Saturation 96 % (92-99) Arterial Blood pH 7.24 (7.35-7.45) Arterial Blood pCO2 at Patient Temp 40 mmHg (35-46) Arterial Blood pO2 at Patient Temp 93 mmHg (75-108) Arterial Blood HCO3 17 mmol/L (21-28) Arterial Blood Base Excess -10 mmol/L (-3-3) FiO2 40 Microbiology 02/12/17 Blood Culture - Final, Complete Medications Current Medications Calcium Chloride 1,000 mg 1X ONCE IV Last administered on 02/12/17 15:35; Start 02/12/17 at 16:00; Stop 02/12/17 at 16:35; Status DC Dextrose (Dextrose 50%-Water Syringe) 25 gm 1X ONCE IV Last administered on 15:33; Start 02/12/17 at 16:00; Stop 02/12/17 at 16:35; Status DC Sodium Bicarbonate 50 meq 1X ONCE IV Last administered on 02/12/17 15:35; Start 02/12/17 at 16:00; Stop 02/12/17 at 16:35; Status DC Furosemide (Lasix) 40 mg 1X ONCE IVP Last administered on 02/12/17 16:42; Start 02/12/17 at 16:30; Stop 02/12/17 at 16:35; Status DC Sodium Chloride 1,000 ml @ 1,000 mls/hr Q1H IV Last administered on 02/12/17 15:50; Start 02/12/17 at 16:57; Stop 02/13/17 at 07:23; Status DC Fentanyl Citrate (Fentanyl 2ml Vial) 25 mcg PRN Q30MIN PRN IV SED; Start at 17:00 Lorazepam (Ativan) 1 mg PRN Q30MIN PRN IV SEDATION; Start 02/12/17 at 17:00 Fentanyl Citrate 30 ml @ 2.5 mls/hr CONT PRN PRN IV IVF Last administered on 03:27; Start 02/12/17 at 17:00 Propofol 100 ml @ 0 mls/hr CONT PRN IV SEE I/O RECORD; Start 02/12/17 at 17:00 Vecuronium [place] (Norcuron Bolus) DOSE AT 0.1 mg/kg PRN Q30MIN PRN IV SHIVERING Last administered on 02/12/17 19:46; Start 02/12/17 at 17:00; Stop 02/13 at 11:01; Status DC Meperidine HCl (Demerol) 12.5 mg PRN Q30MIN PRN IV SHIVERING; Start 02/12/17 at 17:00 Multi-Ingred Cream/Lotion/Oil/ Oint (Artificial Tears Eye Oint) 1 silvestre PRN Q6HRS PRN OU 0.5 INCH FOR DRY EYE; Start 02/12/17 at 17:00 Famotidine (Pepcid) 20 mg BID IVP Last administered on 02/13/17 20:34; Start at 09:00 Aspirin (Aspirin) 300 mg DAILY SD Last administered on 02/13/17 10:11; Start at 09:00 Sodium Chloride (Normal Saline Flush) 3 ml QSHIFT PRN IV AFTER MEDS AND BLOOD DRAWS; Start 02/12/17 at 17:00 Acetaminophen (Tylenol) 650 mg Q6HRS NG Last administered on 02/13/17 05:51; Start 02/12/17 at 18:00; Stop 02/13/17 at 17:59; Status DC Acetaminophen (Acetaminophen Supp) 650 mg PRN Q6HRS PRN SD MILD PAIN / TEMP; Start 02/13/17 at 17:00 Acetaminophen (Tylenol) 650 mg PRN Q6HRS PRN NG MILD PAIN / TEMP; Start at 17:00 Info 1 ea DAILY PRN MC PER PROTOCOL; Start 02/14/17 at 17:00 Sodium Chloride 500 ml @ 500 mls/hr 1X ONCE IV Last administered on 02/12/17 16:30; Start 02/12/17 at 17:15; Stop 02/12/17 at 18:14; Status DC Sodium Chloride 500 ml @ 500 mls/hr 1X ONCE IV Last administered on 02/12/17 16:50; Start 02/12/17 at 17:15; Stop 02/12/17 at 18:14; Status DC Sodium Chloride 1,000 ml @ 100 mls/hr Q10H IV Last administered on 02/13/17 06 :36; Start 02/12/17 at 19:00; Stop 02/13/17 at 10:51; Status DC Famotidine (Pepcid) 20 mg 1X ONCE PO Last administered on 02/12/17 19:57; Start 02/12/17 at 17:30; Stop 02/12/17 at 17:34; Status DC Methylprednisolone Sodium Succinate (SOLU-Medrol 40MG VIAL) 100 mg TID IV Last administered on 02/13/17 20:35; Start 02/12/17 at 18:00 Sodium Chloride 1,000 ml @ 1,000 mls/hr 1X ONCE IV Last administered on 19:31; Start 02/12/17 at 18:15; Stop 02/12/17 at 19:14; Status DC Piperacillin Sod/ Tazobactam Sod (Zosyn Per Pharmacy) 1 each PRN DAILY PRN MC SEE COMMENTS; Start 02/12/17 at 19:15 Vancomycin HCl (Vanco Per Pharmacy) 1 each PRN DAILY PRN MC SEE COMMENTS Last administered on 02/13/17 16:50; Start 02/12/17 at 19:15; Stop 02/14/17 at 07:57; Status DC Piperacillin Sod/ Tazobactam Sod 3.375 gm/Sodium Chloride 50 ml @ 100 mls/hr Q6HRS IV Last administered on 9/8/17at 05:56; Start 02/12/17 at 19:30 Vancomycin HCl 1 gm/Sodium Chloride 250 ml @ 250 mls/hr 1X ONCE IV Last administered on 02/12/17 20:00; Start 02/12/17 at 19:30; Stop 02/12/17 at 20:29; Status DC Sodium Bicarbonate 50 meq 1X ONCE IV Last administered on 02/12/17 19:59; Start 02/12/17 at 19:30; Stop 02/12/17 at 19:31; Status DC Norepinephrine Bitartrate 250 ml @ 0 mls/hr CONT PRN IV SEE I/O RECORD Last administered on 02/14/17 05:21; Start 02/12/17 at 19:30 Norepinephrine Bitartrate 250 ml @ As Directed STK-MED ONCE IV ; Start 02/12/17 at 19:25; Stop 02/12/17 at 19:26; Status DC Vancomycin HCl 750 mg/Sodium Chloride 250 ml @ 250 mls/hr Q24H IV Last administered on 02/13/17 20:34; Start 02/13/17 at 20:00; Stop 02/14/17 at 07:57; Status DC Vancomycin HCl 1 each 1X ONCE MC ; Start 02/14/17 at 19:30; Stop 02/14/17 at 19: 31; Status Cancel Sodium Chloride 1,000 ml @ 1,000 mls/hr 1X ONCE IV Last administered on 05:05; Start 02/13/17 at 04:45; Stop 02/13/17 at 05:44; Status DC Sodium Chloride 1,000 ml @ 1,000 mls/hr 1X ONCE IV Last administered on 05:35; Start 02/13/17 at 05:30; Stop 02/13/17 at 06:29; Status DC Magnesium Sulfate/ Dextrose 50 ml @ 25 mls/hr PRN DAILY PRN IV for Mag < 1.7 on am labs; Start 02/13/17 at 10:45 Dextrose/Sodium Chloride 1,000 ml @ 75 mls/hr [id number] IV Last administered on 02/14/17 03:28; Start 02/13/17 at 11:00 Vecuronium [place] (Norcuron Bolus) 5 mg PRN Q30MIN PRN IV SHIVERING; Start 02/13/17 at 11:15 Lidocaine/Sodium Bicarbonate (Buffered Lidocaine 1%) 3 ml 1X ONCE IJ Last administered on 02/13/17 11:40; Start 02/13/17 at 11:15; Stop 02/13/17 at 11:26; Status DC Heparin Sodium/ Sodium Chloride 60 unit 1X ONCE IV Last administered on 11:40; Start 02/13/17 at 11:15; Stop 02/13/17 at 11:26; Status DC Lidocaine/Sodium Bicarbonate (Buffered Lidocaine 1%) 20 ml STK-MED ONCE IJ ; Start 02/13/17 at 11:22; Stop 02/13/17 at 11:29; Status DC Heparin Sodium (Porcine) (Heparin Sodium) 2,075 unit 1X ONCE IV Last administered on 02/13/17 12:45; Start 02/13/17 at 11:45; Stop 02/13/17 at 11:56; Status DC Heparin Sodium/ Dextrose 500 ml @ 16.5 mls/hr CONT PRN IV SEE I/O RECORD Last administered on 02/13/17 12:47; Start 02/13/17 at 11:45 Heparin Sodium (Porcine) (Heparin Sodium) 1,550 unit PRN Q6HRS PRN IV FOR UFH LEVEL LESS THAN 0.2 Last administered on 02/13/17 20:22; Start 02/13/17 at 11:45 Heparin Sodium (Porcine) (Heparin Sodium) 800 unit PRN Q6HRS PRN IV FOR UFH LEVEL 0.2 - 0.29 Last administered on 02/14/17 02:34; Start 02/13/17 at 11:45 Warfarin Sodium (Coumadin Per Pharmacy) 1 each PRN DAILY PRN MC PER PROTOCOL; Start 02/13/17 at 11:45; Status Cancel Info (Anti-Coagulation Monitoring By Pharmacy) 1 each PRN DAILY PRN MC SEE COMMENTS; Start 02/13/17 at 13:00 Calcium Chloride 1,000 mg STK-MED ONCE IV ; Start 02/12/17 at 10:00; Stop at 16:27; Status DC Epinephrine HCl (EPINEPHrine SYRINGE) 1 mg STK-MED ONCE .ROUTE ; Start 02/12/17 at 10:00; Stop 02/13/17 at 16:27; Status DC Dextrose (Dextrose 50%-Water Syringe) 25 gm STK-MED ONCE IV ; Start 02/12/17 at 10:00; Stop 02/13/17 at 16:27; Status DC Sodium Bicarbonate 50 meq STK-MED ONCE .ROUTE ; Start 02/12/17 at 10:00; Stop 02/13/17 at 16:27; Status DC Active Scripts Active Reported Latuda (Lurasidone Hcl) 20 Mg Tablet 20 Mg PO AFTRNOON Remeron (Mirtazapine) 15 Mg Tablet 1 Tab PO QHS Oxybutynin Chloride Er (Oxybutynin Chloride) 10 Mg Tab.er.24 1 Tab PO DAILY Multivitamins (Multivitamin) 1 Each Tablet 1 Tab PO DAILY Latuda (Lurasidone Hcl) 20 Mg Tablet 10 Mg PO AFTRNOON Lorazepam 0.5 Mg Tablet 1 Tab PO QEVNG Duoneb 0.5-3(2.5) Mg/3 Ml (Albuterol/Ipratropium) 3 Ml Ampul.neb 3 Ml NEB BID Duoneb 0.5-3(2.5) Mg/3 Ml (Albuterol/Ipratropium) 3 Ml Ampul.neb 3 Ml NEB Q4H PRN Calcium Carbonate 500 Mg Tablet 1,000 Mg PO Q4HRS PRN Nicotine Gum (Nicotine Polacrilex) 4 Mg Gum 4 Mg BC Milk Of Magnesia (Magnesium Hydroxide) 400 Mg/5 Ml Oral.susp 400 Mg PO Q3DAYS PRN Milk Of Magnesia (Magnesium Hydroxide) 400 Mg/5 Ml Oral.susp 400 Mg PO Q3DAYS PRN Lorazepam 1 Mg Tablet 1 Tab PO Q12HR PRN Ibuprofen 400 Mg Tablet 200 Mg PO Q8HRS PRN Cough Drops (Eucalyptus Oil/Menthol) 7 Mg Lozenge 7 Mg MM Q4HRS PRN Tylenol (Acetaminophen) 325 Mg Tablet 650 Mg PO Q4HRS PRN Lovaza (Palisade-3 Acid Ethyl Esters) 1 Gm Capsule 1 Cap PO QID Gabapentin 400 Mg Capsule 400 Mg PO QID Lorazepam 1 Mg Tablet 1 Tab PO BID Latuda (Lurasidone Hcl) 60 Mg Tablet 60 Mg PO BID Advair 100-50 Diskus (Fluticasone/Salmeterol) 1 Each Disk.w.dev 1 Puff IH BID Acetaminophen 325 Mg Capsule 650 Mg PO BID Vitamin D (Cholecalciferol (Vitamin D3)) 2,000 Unit Capsule 800 Unit PO DAILY Vitals/I & O Vital Sign - Last 24 Hours 02/13/17 02/13/17 02/13/17 02/13/17 09:45 10:00 11:00 11:54 Temp 91.2 92.1 91.2 92.1 Pulse 84 87 86 Resp B/P (MAP) 103/63 (76) Pulse Ox 100 100 100 98 O2 Delivery Ventilator Ventilator Ventilator Ventilator 02/13/17 02/13/17 02/13/17 02/13/17 12:00 12:00 13:00 13:29 Temp 92.7 93.0 92.7 93.0 Pulse 86 93 Resp B/P (MAP) 100/70 (80) 119/74 (89) Pulse Ox 100 100 100 O2 Delivery Ventilator Mechanical Ventilator Ventilator Ventilator 02/13/17 02/13/17 02/13/17 02/13/17 14:00 14:45 15:00 15:15 Temp 92.7 92.9 92.7 92.9 Pulse 97 95 94 Resp 26 B/P (MAP) Pulse Ox 100 100 100 O2 Delivery Ventilator Ventilator Ventilator Ventilator 02/13/17 02/13/17 02/13/17 02/13/17 16:00 16:00 17:00 17:01 Temp 93.0 92.9 93.0 92.9 Pulse 92 88 Resp B/P (MAP) 103/75 (84) 117/79 (92) Pulse Ox 100 100 100 O2 Delivery Mechanical Ventilator Ventilator Ventilator Ventilator 02/13/17 02/13/17 02/13/17 02/13/17 18:00 18:15 19:00 19:22 Pulse 92 89 Resp B/P (MAP) 119/81 (94) Pulse Ox 100 99 99 99 O2 Delivery Ventilator Ventilator Ventilator Ventilator 02/13/17 02/13/17 02/13/17 02/13/17 20:00 20:00 20:34 21:00 Pulse 86 92 Resp 25 B/P (MAP) Pulse Ox 100 100 100 O2 Delivery Ventilator Mechanical Ventilator Ventilator Ventilator 02/13/17 02/13/17 02/13/17 02/13/17 22:00 22:47 23:00 23:59 Pulse 92 92 Resp 25 B/P (MAP) 115/67 (83) Pulse Ox 100 99 99 O2 Delivery Ventilator Ventilator Ventilator Mechanical Ventilator 02/14/17 02/14/17 02/14/17 02/14/17 00:00 00:54 01:00 02:00 Pulse 112 113 113 Resp 25 B/P (MAP) 114/59 (77) 100/62 (75) Pulse Ox 99 98 99 99 O2 Delivery Ventilator Ventilator Ventilator Ventilator 02/14/17 02/14/17 02/14/17 02/14/17 03:00 03:15 03:57 04:00 Pulse 112 118 Resp 25 B/P (MAP) Pulse Ox 99 100 99 O2 Delivery Ventilator Ventilator Ventilator Ventilator 02/14/17 02/14/17 02/14/17 02/14/17 04:00 05:00 05:25 06:00 Pulse 115 114 Resp 25 B/P (MAP) 98/76 (83) Pulse Ox 100 100 99 O2 Delivery Mechanical Ventilator Ventilator Ventilator Ventilator 02/14/17 02/14/17 06:44 07:32 B/P (MAP) 144/74 (97) Pulse Ox 100 O2 Delivery Ventilator BERONICA VILLATORO MD Feb 14, 2017 09:42
[2017-02-14 09:43] LABS: MAGNESIUM 1.9 mg/dL (1.8-2.4); PHOSPHORUS 4.4 mg/dL (2.6-4.7)
--- NOTE | 2017-02-14 10:17 | PDOC ---
SUBJECTIVE ROS DARYA - post code remains intubated and sedated OBJECTIVE Vital Signs Vital Signs Date Time Temp Pulse Resp B/P (MAP) Pulse Ox O2 Delivery O2 Flow Rate FiO2 02/14/17 07:32 100 Ventilator 02/14/17 06:44 144/74 (97) 02/14/17 06:00 114 25 02/13/17 17:00 92.9 92.9 PHYSICAL EXAM Physical Exam General Appearance: SEdated and intubated on the Vent In no Distress Eyes: Pupils 2mm (sluggish) Conjunctiva Normal EN: No EN Drainage Mucous Memb. moist Neck: no JVD min JVP Supple no Thyromegaly CVS: S1 S2 + Murmur No Gallop No Rub no Edema Resp: ? occ Rales no Rhonchi no Ac ? Distended : no CVA tenderness; no Suprapubic Tenderness SKIN: no Rashes Breast Exam deferred Mu.Sk: Adequate passive ROM no Muscle Atrophy Heme: Unable to palpate Obvious LAD no Splenomegaly NEURO: Unable to assess due to sedated and intubated state Psych: Unable to assess due to sedated and intubated state - known underlying Psych issues as outlined Assessment & Plan DARYA - now suspect ATN. - suspect due to CODE BLUE - Current FLuid and E-lyte status does not necessitate emergent need for Dialysis. ? Upcoming need for HD as anticipated - No NOK for decisions. - May need to do it as Medical Necessity if need arises, however Neuro eval may be more helpful to determine further course at this time Rhabdo with ^ed CK - suspect post code with NSTEMI. watch trend Hypotension - IVF to ct for now. Pressors as ongoing. Low Na - IV F as ordered for now to manage rate of correction ? CKD III - ER NOte suggests Baseline Creat of 1.3 CODE BLUE with reported Asystole - defer to Cardiology Lowish Ousmane - due to low Alb and ^d CK (mag and Phos are OK so far) H/o Hep C - UA was rel benign OA so doubt HepC related GN Lactic Acidemia - much improved with improved systemic perfusion Discussed Plan of Care and prognosis etc. at length with RN COMMENT/RELEVANT DATA Meds Current Medications Medications (Trade) Dose Ordered Sig/Bryce Start Time Stop Time Status Last Admin Dose Admin Acetaminophen (Acetaminophen Supp) 650 mg PRN Q6HRS PRN 02/13/17 17:00 Acetaminophen (Tylenol) 650 mg PRN Q6HRS PRN 02/13/17 17:00 Aspirin (Aspirin) 300 mg DAILY 02/13/17 09:00 02/13/17 10:11 300 MG Calcium Chloride 1,000 mg STK-MED ONCE 02/12/17 10:00 02/13/17 16:27 DC Dextrose (Dextrose 50%-Water Syringe) 25 gm STK-MED ONCE 02/12/17 10:00 02/13/17 16:27 DC Dextrose/Sodium Chloride 1,000 ml @ 75 mls/hr [id number] 02/13/17 11:00 02/14/17 03:28 75 MLS/HR Epinephrine HCl (EPINEPHrine SYRINGE) 1 mg STK-MED ONCE 02/12/17 10:00 02/13/17 16:27 DC Famotidine (Pepcid) 20 mg 1X ONCE 02/12/17 17:30 02/12/17 17:34 DC 02/12/17 19:57 20 MG Fentanyl Citrate 30 ml @ 2.5 mls/hr CONT PRN PRN 02/12/17 17:00 02/14/17 03:27 2.5 MLS/HR Fentanyl Citrate (Fentanyl 2ml Vial) 25 mcg PRN Q30MIN PRN 02/12/17 17:00 Furosemide (Lasix) 40 mg 1X ONCE 02/12/17 16:30 02/12/17 16:35 DC 02/12/17 16:42 40 MG Heparin Sodium (Porcine) (Heparin Sodium) 800 unit PRN Q6HRS PRN 02/13/17 11:45 02/14/17 02:34 800 UNIT Heparin Sodium/ Dextrose 500 ml @ 16.5 mls/hr CONT PRN 02/13/17 11:45 02/13/17 12:47 16.5 MLS/HR Heparin Sodium/ Sodium Chloride 60 unit 1X ONCE 02/13/17 11:15 02/13/17 11:26 DC 02/13/17 11:40 60 UNIT Info (Anti-Coagulation Monitoring By Pharmacy) 1 each PRN DAILY PRN 02/13/17 13:00 Lidocaine/Sodium Bicarbonate (Buffered Lidocaine 1%) 20 ml STK-MED ONCE 02/13/17 11:22 02/13/17 11:29 DC Lorazepam (Ativan) 1 mg PRN Q30MIN PRN 02/12/17 17:00 Magnesium Sulfate/ Dextrose 50 ml @ 25 mls/hr PRN DAILY PRN 02/13/17 10:45 Meperidine HCl (Demerol) 12.5 mg PRN Q30MIN PRN 02/12/17 17:00 Methylprednisolone Sodium Succinate (SOLU-Medrol 40MG VIAL) 100 mg TID 02/12/17 18:00 02/13/17 20:35 100 MG Multi-Ingred Cream/Lotion/Oil/ Oint (Artificial Tears Eye Oint) 1 silvestre PRN Q6HRS PRN 02/12/17 17:00 Norepinephrine Bitartrate 250 ml @ As Directed STK-MED ONCE 02/12/17 19:25 02/12/17 19:26 DC Piperacillin Sod/ Tazobactam Sod (Zosyn Per Pharmacy) 1 each PRN DAILY PRN 02/12/17 19:15 Piperacillin Sod/ Tazobactam Sod 3.375 gm/Sodium Chloride 50 ml @ 100 mls/hr Q6HRS 02/12/17 19:30 02/14/17 05:56 100 MLS/HR Propofol 100 ml @ 0 mls/hr CONT PRN 02/12/17 17:00 Sodium Bicarbonate 50 meq STK-MED ONCE 02/12/17 10:00 02/13/17 16:27 DC Sodium Chloride 1,000 ml @ 1,000 mls/hr 1X ONCE 02/13/17 05:30 02/13/17 06:29 DC 02/13/17 05:35 1,000 MLS/HR Sodium Chloride (Normal Saline Flush) 3 ml QSHIFT PRN 02/12/17 17:00 Vancomycin HCl 1 each 1X ONCE 02/14/17 19:30 02/14/17 19:31 Cancel Vancomycin HCl (Vanco Per Pharmacy) 1 each PRN DAILY PRN 02/12/17 19:15 02/14/17 07:57 DC 02/13/17 16:50 1 EACH Vancomycin HCl 750 mg/Sodium Chloride 250 ml @ 250 mls/hr Q24H 02/13/17 20:00 02/14/17 07:57 DC 02/13/17 20:34 250 MLS/HR Vancomycin HCl 1 gm/Sodium Chloride 250 ml @ 250 mls/hr 1X ONCE 02/12/17 19:30 9/6/17 20:29 DC 02/12/17 20:00 250 MLS/HR Vecuronium [place] (Norcuron Bolus) 5 mg PRN Q30MIN PRN 02/13/17 11:15 Warfarin Sodium (Coumadin Per Pharmacy) 1 each PRN DAILY PRN 02/13/17 11:45 Cancel Lab Laboratory Tests Test 02/13/17 12:45 02/13/17 14:05 02/13/17 16:00 02/13/17 18:40 Sodium Level 130 mmol/L (136-145) 130 mmol/L (136-145) 129 mmol/L (136-145) Potassium Level 4.1 mmol/L (3.5-5.1) 4.4 mmol/L (3.5-5.1) Chloride Level 96 mmol/L (98-107) 95 mmol/L (98-107) Carbon Dioxide Level 25 mmol/L (21-32) 23 mmol/L (21-32) Anion Gap 9 (6-14) 12 (6-14) Blood Urea Nitrogen 29 mg/dL (7-20) 30 mg/dL (7-20) Creatinine 1.5 mg/dL (0.6-1.0) 1.7 mg/dL (0.6-1.0) Estimated GFR (Cockcroft-Gault) 43.8 37.9 Glucose Level 92 mg/dL (70-99) 133 mg/dL (70-99) Calcium Level 7.6 mg/dL (8.5-10.1) 7.5 mg/dL (8.5-10.1) Phosphorus Level 3.7 mg/dL (2.6-4.7) 4.0 mg/dL (2.6-4.7) Magnesium Level 1.9 mg/dL (1.8-2.4) 2.0 mg/dL (1.8-2.4) Creatine Kinase 4039 U/L (26-192) White Blood Count 13.7 x10^3/uL (4.0-11.0) Red Blood Count 4.19 x10^6/uL (3.50-5.40) Hemoglobin 13.9 g/dL (12.0-15.5) Hematocrit 41.3 % (36.0-47.0) Mean Corpuscular Volume 99 fL (79-100) Mean Corpuscular Hemoglobin 33 pg (25-35) Mean Corpuscular Hemoglobin Concent 34 g/dL (31-37) Red Cell Distribution Width 12.7 % (11.5-14.5) Platelet Count 188 x10^3/uL (140-400) Prothrombin Time 27.9 SEC (11.7-14.0) Prothromb Time International Ratio 2.8 (0.8-1.1) Activated Partial Thromboplast Time 40 SEC (24-38) Heparin Anti-Xa Act, Unfractionated 0.10 IU/mL (0.30-0.70) Test 02/13/17 20:30 02/13/17 21:50 02/14/17 00:01 02/14/17 01:55 Sodium Level 129 mmol/L (136-145) 127 mmol/L (136-145) Potassium Level 4.0 mmol/L (3.5-5.1) 4.3 mmol/L (3.5-5.1) Chloride Level 93 mmol/L (98-107) 93 mmol/L (98-107) Carbon Dioxide Level 23 mmol/L (21-32) 23 mmol/L (21-32) Anion Gap 13 (6-14) 11 (6-14) Blood Urea Nitrogen 34 mg/dL (7-20) 34 mg/dL (7-20) Creatinine 1.8 mg/dL (0.6-1.0) 2.1 mg/dL (0.6-1.0) Estimated GFR (Cockcroft-Gault) 35.5 29.7 Glucose Level 165 mg/dL (70-99) 174 mg/dL (70-99) Calcium Level 7.6 mg/dL (8.5-10.1) 7.5 mg/dL (8.5-10.1) Phosphorus Level 4.2 mg/dL (2.6-4.7) 4.3 mg/dL (2.6-4.7) Magnesium Level 1.9 mg/dL (1.8-2.4) 1.9 mg/dL (1.8-2.4) White Blood Count 18.9 x10^3/uL (4.0-11.0) Red Blood Count 4.03 x10^6/uL (3.50-5.40) Hemoglobin 13.5 g/dL (12.0-15.5) Hematocrit 39.6 % (36.0-47.0) Mean Corpuscular Volume 98 fL (79-100) Mean Corpuscular Hemoglobin 34 pg (25-35) Mean Corpuscular Hemoglobin Concent 34 g/dL (31-37) Red Cell Distribution Width 13.0 % (11.5-14.5) Platelet Count 168 x10^3/uL (140-400) Prothrombin Time 30.7 SEC (11.7-14.0) Prothromb Time International Ratio 3.2 (0.8-1.1) Activated Partial Thromboplast Time > 150 SEC (24-38) Heparin Anti-Xa Act, Unfractionated 0.28 IU/mL (0.30-0.70) Test 02/14/17 03:45 02/14/17 05:25 02/14/17 07:30 02/14/17 08:35 Sodium Level 128 mmol/L (136-145) 128 mmol/L (136-145) Potassium Level 4.2 mmol/L (3.5-5.1) 4.3 mmol/L (3.5-5.1) Chloride Level 93 mmol/L (98-107) 94 mmol/L (98-107) Carbon Dioxide Level 23 mmol/L (21-32) 21 mmol/L (21-32) Anion Gap 12 (6-14) 13 (6-14) Blood Urea Nitrogen 36 mg/dL (7-20) 37 mg/dL (7-20) Creatinine 2.2 mg/dL (0.6-1.0) 2.2 mg/dL (0.6-1.0) Estimated GFR (Cockcroft-Gault) 28.1 28.1 Glucose Level 148 mg/dL (70-99) 144 mg/dL (70-99) Calcium Level 7.6 mg/dL (8.5-10.1) 7.0 mg/dL (8.5-10.1) Phosphorus Level 4.6 mg/dL (2.6-4.7) 4.6 mg/dL (2.6-4.7) Magnesium Level 1.8 mg/dL (1.8-2.4) 1.8 mg/dL (1.8-2.4) White Blood Count 22.4 x10^3/uL (4.0-11.0) Red Blood Count 3.95 x10^6/uL (3.50-5.40) Hemoglobin 13.3 g/dL (12.0-15.5) Hematocrit 38.4 % (36.0-47.0) Mean Corpuscular Volume 97 fL (79-100) Mean Corpuscular Hemoglobin 34 pg (25-35) Mean Corpuscular Hemoglobin Concent 35 g/dL (31-37) Red Cell Distribution Width 13.4 % (11.5-14.5) Platelet Count 174 x10^3/uL (140-400) Prothrombin Time 30.3 SEC (11.7-14.0) Prothromb Time International Ratio 3.1 (0.8-1.1) Activated Partial Thromboplast Time > 150 SEC (24-38) Lactic Acid Level 2.0 mmol/L (0.4-2.0) Albumin 1.8 g/dL (3.4-5.0) O2 Saturation 96 % (92-99) Arterial Blood pH 7.24 (7.35-7.45) Arterial Blood pCO2 at Patient Temp 40 mmHg (35-46) Arterial Blood pO2 at Patient Temp 93 mmHg (75-108) Arterial Blood HCO3 17 mmol/L (21-28) Arterial Blood Base Excess -10 mmol/L (-3-3) FiO2 40 Heparin Anti-Xa Act, Unfractionated 0.24 IU/mL (0.30-0.70) Test 02/14/17 08:55 Phosphorus Level 4.4 mg/dL (2.6-4.7) Magnesium Level 1.9 mg/dL (1.8-2.4) Other Impression: 1. Unremarkable appearance of the right kidney 2. Nonvisualization of the left kidney, most likely reflecting exam limitations as described 3. Mild ascites 4. Probable small right effusion 5. Rouleaux flow within the visualized inferior vena cava. Finding usually indicates a low flow state. ELIAZAR GREER MD Feb 14, 2017 10:17
--- NOTE | 2017-02-14 10:34 | PDOC ---
[facility] 02/14/17 1034: CARDIO Progress Notes Date and Time Date of Service 02/14/2017 Time of Evaluation 1000 Subjective Subjective: Other (OFF SEDATION, NONRESPONSIVE) Vitals Vitals Vital Signs Date Time Temp Pulse Resp B/P (MAP) Pulse Ox O2 Delivery O2 Flow Rate FiO2 02/14/17 07:32 100 Ventilator 02/14/17 06:44 144/74 (97) 02/14/17 06:00 114 25 02/13/17 17:00 92.9 92.9 Weight Weight [ ] Laboratory Labs Laboratory Tests Test 02/13/17 12:45 02/13/17 14:05 02/13/17 16:00 02/13/17 18:40 Sodium Level 130 mmol/L (136-145) 130 mmol/L (136-145) 129 mmol/L (136-145) Potassium Level 4.1 mmol/L (3.5-5.1) 4.4 mmol/L (3.5-5.1) Chloride Level 96 mmol/L (98-107) 95 mmol/L (98-107) Carbon Dioxide Level 25 mmol/L (21-32) 23 mmol/L (21-32) Anion Gap 9 (6-14) 12 (6-14) Blood Urea Nitrogen 29 mg/dL (7-20) 30 mg/dL (7-20) Creatinine 1.5 mg/dL (0.6-1.0) 1.7 mg/dL (0.6-1.0) Estimated GFR (Cockcroft-Gault) 43.8 37.9 Glucose Level 92 mg/dL (70-99) 133 mg/dL (70-99) Calcium Level 7.6 mg/dL (8.5-10.1) 7.5 mg/dL (8.5-10.1) Phosphorus Level 3.7 mg/dL (2.6-4.7) 4.0 mg/dL (2.6-4.7) Magnesium Level 1.9 mg/dL (1.8-2.4) 2.0 mg/dL (1.8-2.4) Creatine Kinase 4039 U/L (26-192) White Blood Count 13.7 x10^3/uL (4.0-11.0) Red Blood Count 4.19 x10^6/uL (3.50-5.40) Hemoglobin 13.9 g/dL (12.0-15.5) Hematocrit 41.3 % (36.0-47.0) Mean Corpuscular Volume 99 fL (79-100) Mean Corpuscular Hemoglobin 33 pg (25-35) Mean Corpuscular Hemoglobin Concent 34 g/dL (31-37) Red Cell Distribution Width 12.7 % (11.5-14.5) Platelet Count 188 x10^3/uL (140-400) Prothrombin Time 27.9 SEC (11.7-14.0) Prothromb Time International Ratio 2.8 (0.8-1.1) Activated Partial Thromboplast Time 40 SEC (24-38) Heparin Anti-Xa Act, Unfractionated 0.10 IU/mL (0.30-0.70) Test 02/13/17 20:30 02/13/17 21:50 02/14/17 00:01 02/14/17 01:55 Sodium Level 129 mmol/L (136-145) 127 mmol/L (136-145) Potassium Level 4.0 mmol/L (3.5-5.1) 4.3 mmol/L (3.5-5.1) Chloride Level 93 mmol/L (98-107) 93 mmol/L (98-107) Carbon Dioxide Level 23 mmol/L (21-32) 23 mmol/L (21-32) Anion Gap 13 (6-14) 11 (6-14) Blood Urea Nitrogen 34 mg/dL (7-20) 34 mg/dL (7-20) Creatinine 1.8 mg/dL (0.6-1.0) 2.1 mg/dL (0.6-1.0) Estimated GFR (Cockcroft-Gault) 35.5 29.7 Glucose Level 165 mg/dL (70-99) 174 mg/dL (70-99) Calcium Level 7.6 mg/dL (8.5-10.1) 7.5 mg/dL (8.5-10.1) Phosphorus Level 4.2 mg/dL (2.6-4.7) 4.3 mg/dL (2.6-4.7) Magnesium Level 1.9 mg/dL (1.8-2.4) 1.9 mg/dL (1.8-2.4) White Blood Count 18.9 x10^3/uL (4.0-11.0) Red Blood Count 4.03 x10^6/uL (3.50-5.40) Hemoglobin 13.5 g/dL (12.0-15.5) Hematocrit 39.6 % (36.0-47.0) Mean Corpuscular Volume 98 fL (79-100) Mean Corpuscular Hemoglobin 34 pg (25-35) Mean Corpuscular Hemoglobin Concent 34 g/dL (31-37) Red Cell Distribution Width 13.0 % (11.5-14.5) Platelet Count 168 x10^3/uL (140-400) Prothrombin Time 30.7 SEC (11.7-14.0) Prothromb Time International Ratio 3.2 (0.8-1.1) Activated Partial Thromboplast Time > 150 SEC (24-38) Heparin Anti-Xa Act, Unfractionated 0.28 IU/mL (0.30-0.70) Test 02/14/17 03:45 02/14/17 05:25 02/14/17 07:30 02/14/17 08:35 Sodium Level 128 mmol/L (136-145) 128 mmol/L (136-145) Potassium Level 4.2 mmol/L (3.5-5.1) 4.3 mmol/L (3.5-5.1) Chloride Level 93 mmol/L (98-107) 94 mmol/L (98-107) Carbon Dioxide Level 23 mmol/L (21-32) 21 mmol/L (21-32) Anion Gap 12 (6-14) 13 (6-14) Blood Urea Nitrogen 36 mg/dL (7-20) 37 mg/dL (7-20) Creatinine 2.2 mg/dL (0.6-1.0) 2.2 mg/dL (0.6-1.0) Estimated GFR (Cockcroft-Gault) 28.1 28.1 Glucose Level 148 mg/dL (70-99) 144 mg/dL (70-99) Calcium Level 7.6 mg/dL (8.5-10.1) 7.0 mg/dL (8.5-10.1) Phosphorus Level 4.6 mg/dL (2.6-4.7) 4.6 mg/dL (2.6-4.7) Magnesium Level 1.8 mg/dL (1.8-2.4) 1.8 mg/dL (1.8-2.4) White Blood Count 22.4 x10^3/uL (4.0-11.0) Red Blood Count 3.95 x10^6/uL (3.50-5.40) Hemoglobin 13.3 g/dL (12.0-15.5) Hematocrit 38.4 % (36.0-47.0) Mean Corpuscular Volume 97 fL (79-100) Mean Corpuscular Hemoglobin 34 pg (25-35) Mean Corpuscular Hemoglobin Concent 35 g/dL (31-37) Red Cell Distribution Width 13.4 % (11.5-14.5) Platelet Count 174 x10^3/uL (140-400) Prothrombin Time 30.3 SEC (11.7-14.0) Prothromb Time International Ratio 3.1 (0.8-1.1) Activated Partial Thromboplast Time > 150 SEC (24-38) Lactic Acid Level 2.0 mmol/L (0.4-2.0) Albumin 1.8 g/dL (3.4-5.0) O2 Saturation 96 % (92-99) Arterial Blood pH 7.24 (7.35-7.45) Arterial Blood pCO2 at Patient Temp 40 mmHg (35-46) Arterial Blood pO2 at Patient Temp 93 mmHg (75-108) Arterial Blood HCO3 17 mmol/L (21-28) Arterial Blood Base Excess -10 mmol/L (-3-3) FiO2 40 Heparin Anti-Xa Act, Unfractionated 0.24 IU/mL (0.30-0.70) Test 02/14/17 08:55 Phosphorus Level 4.4 mg/dL (2.6-4.7) Magnesium Level 1.9 mg/dL (1.8-2.4) Microbiology Micro Microbiology 02/12/17 Blood Culture - Final, Complete Physical Exam HEENT: Neck Supple W Full Motion Chest: Symmetric LUNGS: Other (Diminsihed, intuabted with mechanical vent) Heart: S1S2, RRR (ST) Abdomen: Other (soft adb) Extremities: No Edema, Other (peripheral pulses notable with doppler) Neurology: other (unresponsive) Assessment Assessment 1. S/P cardiac arrest: unknown etiology, Multiorgan failure as noted below. 2. Acute respiratory failure: intubated/vented, followed by pulmonary 3. Acute respiratory/metabolic acidosis: Notable for RV dilation. PE component? 4. Hypothermia: prehospitalization and maintained at hypothermic status initially and now rewarmed 5. Encephalopathy: multifactorial, off sedation but no response to stimuli, neurology following 5. Hypoglycemia: initial BG 20 6. DARYA/Hyponatremia/hyperkalemia: K resolved and Na Improving. Nephrology following 7. Arrhythmia: noted with AIVR as above. multifactorial with lyte abnormalities. EF 50%. Post treatment with lyte correction, now SR/ST 90-110 and remains with no significant ectopies 8. Shock liver with possible UGI bleed: GI following. 9. NSTEMI: Troponin 1.3. Suspect demand mediated, multifactorial. 10. Hx of Schizophrenia Recommendations 1. Continue workup per multiple consultants. Palliative care has been consulted 2. Further cardiac workup will be reevaluated pending recovery from multiple acute issues particularly neurologic status. Poor prognosis 3. Vasopressor as warranted, BP stable currently with levophed 4. Empiric heparin to start per pulmonary. Unable to proceed with CTA with very low UOP. KRISTIN COX MD 02/14/17 2324: CARDIO Progress Notes Plan Plan Pt. seen and examined. Agree with above UTILITY LOCATOR note with following recs: No significant neurologic improvement. No obvious changes to cardiac status. Bedside right femoral arterial line placed under urgent semi-sterile condition due to hypotension. No acute complications. She has an overall poor prognosis. Would recommend DNR and consider hospice. Will follow along. YON RIVAS APRN Feb 14, 2017 10:34 KRISTIN COX MD Feb 14, 2017 23:24
[2017-02-14] MEDS: ASPIRIN 300 MG SUPP.RECT PR SCH (10:47)
[2017-02-14] MEDS: FAMOTIDINE 20 MG/2 ML VIAL IVP SCH (10:47)
[2017-02-14] MEDS: methylPREDNISolone SOD SUCC PF 40 MG/ML VIAL. IV SCH (11:01)
--- NOTE | 2017-02-14 11:35 | PDOC ---
PULMONARY PROGRESS NOTES Subjective REMAINS INTUBATED/ ON NARCOTICS HIGH DOSE LEVO NO SPONT RESPIRATIONS Vitals Vital Signs Date Time Temp Pulse Resp B/P (MAP) Pulse Ox O2 Delivery O2 Flow Rate FiO2 02/14/17 07:32 100 Ventilator 02/14/17 06:44 144/74 (97) 02/14/17 06:00 114 25 02/13/17 17:00 92.9 92.9 Lungs: Other (decrease bs) Cardiovascular: S1 Abdomen: Soft Extremities: Other (cold , decrease pulses) Labs Laboratory Tests Test 02/12/17 15:24 02/12/17 15:45 02/12/17 15:49 02/12/17 15:50 White Blood Count 12.7 x10^3/uL (4.0-11.0) Red Blood Count 3.69 x10^6/uL (3.50-5.40) Hemoglobin 12.3 g/dL (12.0-15.5) Hematocrit 37.4 % (36.0-47.0) Mean Corpuscular Volume 102 fL (79-100) Mean Corpuscular Hemoglobin 33 pg (25-35) Mean Corpuscular Hemoglobin Concent 33 g/dL (31-37) Red Cell Distribution Width 13.1 % (11.5-14.5) Platelet Count 212 x10^3/uL (140-400) Neutrophils (%) (Auto) 88 % (31-73) Lymphocytes (%) (Auto) 9 % (24-48) Monocytes (%) (Auto) 3 % (0-9) Eosinophils (%) (Auto) 0 % (0-3) Basophils (%) (Auto) 0 % (0-3) Neutrophils # (Auto) 11.1 x10^3uL (1.8-7.7) Lymphocytes # (Auto) 1.1 x10^3/uL (1.0-4.8) Monocytes # (Auto) 0.4 x10^3/uL (0.0-1.1) Eosinophils # (Auto) 0.0 x10^3/uL (0.0-0.7) Basophils # (Auto) 0.1 x10^3/uL (0.0-0.2) Segmented Neutrophils % 37 % (35-66) Band Neutrophils % 44 % (0-9) Lymphocytes % 4 % (24-48) Atypical Lymphocytes % (Manual) 5 % (0-0) Monocytes % 5 % (0-10) Basophils % 1 % (0-3) Metamyelocytes % 4 % (0-0) Toxic Granulation Present Dohle Bodies Present Platelet Estimate Adequate (ADEQUATE) Large Platelets Present Polychromasia Slight Poikilocytosis Slight Anisocytosis Slight Macrocytosis Slight Target Cells Tear Drop Cells Occ Ovalocytes Occ Crenated Cell Present Sodium Level 117 mmol/L (136-145) Potassium Level 7.2 mmol/L (3.5-5.1) Chloride Level 81 mmol/L (98-107) Carbon Dioxide Level 23 mmol/L (21-32) Anion Gap 13 (6-14) Blood Urea Nitrogen 15 mg/dL (7-20) Creatinine 1.0 mg/dL (0.6-1.0) Estimated GFR (Cockcroft-Gault) 69.9 Glucose Level 20 mg/dL (70-99) Lactic Acid Level 12.9 mmol/L (0.4-2.0) Calcium Level 9.6 mg/dL (8.5-10.1) Total Bilirubin 0.8 mg/dL (0.2-1.0) Direct Bilirubin 0.3 mg/dL (0.0-0.2) Aspartate Amino Transf (AST/SGOT) 554 U/L (15-37) Alanine Aminotransferase (ALT/SGPT) 305 U/L (14-59) Alkaline Phosphatase 95 U/L (46-116) Bedside Troponin I 0.78 ng/ml (<0.08) Troponin I Quantitative 1.352 ng/mL (0.000-0.055) FE-Iml-Z-Type Natriuretic Peptide 64206 pg/mL (0-124) Total Protein 6.9 g/dL (6.4-8.2) Albumin 2.9 g/dL (3.4-5.0) Lipase 43 U/L (73-393) Glucose (Fingerstick) 209 mg/dL (70-99) Urine Collection Type Unknown Urine Color Yellow Urine Clarity Cloudy Urine pH 5.5 Urine Specific [place] 1.010 Urine Protein 30 mg/dL (NEG-TRACE) Urine Glucose (UA) Negative mg/dL (NEG) Urine Ketones (Stick) Negative mg/dL (NEG) Urine Blood Moderate (NEG) Urine Nitrite Negative (NEG) Urine Bilirubin Negative (NEG) Urine Urobilinogen Dipstick 0.2 mg/dL (0.2 mg/dL) Urine Leukocyte Esterase Trace (NEG) Urine RBC 1-2 /HPF (0-2) Urine WBC 1-4 /HPF (0-4) Urine Squamous Epithelial Cells Occ /LPF Urine Bacteria Many /HPF (0-FEW) Urine Hyaline Casts Occasional /HPF Urine Opiates Screen Neg (NEG) Urine Methadone Screen Neg (NEG) Urine Barbiturates Neg (NEG) Urine Phencyclidine Screen Neg (NEG) Urine Amphetamine/Methamphetamine Neg (NEG) Urine Benzodiazepines Screen Neg (NEG) Urine Cocaine Screen Neg (NEG) Urine Cannabinoids Screen Neg (NEG) Urine Ethyl Alcohol Neg (NEG) O2 Saturation 99 % (92-99) Arterial Blood pH 7.03 (7.35-7.45) Arterial Blood pCO2 at Patient Temp 62 mmHg (35-46) Arterial Blood pO2 at Patient Temp 493 mmHg (75-108) Arterial Blood HCO3 16 mmol/L (21-28) Arterial Blood Base Excess -15 mmol/L (-3-3) Oxyhemoglobin 95.3 % Methemoglobin 0.5 % (0.0-1.9) Carbon Monoxide, Quantitative 3.1 % (0.0-1.9) FiO2 100 Test 02/12/17 16:29 02/12/17 17:19 02/12/17 17:30 02/12/17 19:00 Glucose (Fingerstick) 140 mg/dL (70-99) Sodium Level 118 mmol/L (136-145) Potassium Level 5.7 mmol/L (3.5-5.1) Chloride Level 86 mmol/L (98-107) Carbon Dioxide Level 20 mmol/L (21-32) Anion Gap 12 (6-14) Blood Urea Nitrogen 16 mg/dL (7-20) Creatinine 1.2 mg/dL (0.6-1.0) Estimated GFR (Cockcroft-Gault) 56.6 Glucose Level 115 mg/dL (70-99) Calcium Level 8.9 mg/dL (8.5-10.1) Thyroid Stimulating Hormone (TSH) 3.671 uIU/mL (0.358-3.74) O2 Saturation 99 % (92-99) Arterial Blood pH 7.11 (7.35-7.45) Arterial Blood pCO2 at Patient Temp 59 mmHg (35-46) Arterial Blood pO2 at Patient Temp 199 mmHg (75-108) Arterial Blood HCO3 18 mmol/L (21-28) Arterial Blood Base Excess -11 mmol/L (-3-3) FiO2 60 Nasal Screen MRSA (PCR) Positive (Negative) Test 02/12/17 19:30 02/12/17 23:40 02/13/17 03:55 02/13/17 05:50 White Blood Count 14.8 x10^3/uL (4.0-11.0) 9.4 x10^3/uL (4.0-11.0) Red Blood Count 3.46 x10^6/uL (3.50-5.40) 3.51 x10^6/uL (3.50-5.40) Hemoglobin 11.8 g/dL (12.0-15.5) 12.1 g/dL (12.0-15.5) Hematocrit 33.5 % (36.0-47.0) 34.1 % (36.0-47.0) Mean Corpuscular Volume 97 fL (79-100) 97 fL (79-100) Mean Corpuscular Hemoglobin 34 pg (25-35) 35 pg (25-35) Mean Corpuscular Hemoglobin Concent 35 g/dL (31-37) 36 g/dL (31-37) Red Cell Distribution Width 13.9 % (11.5-14.5) 13.1 % (11.5-14.5) Platelet Count 261 x10^3/uL (140-400) 169 x10^3/uL (140-400) Prothrombin Time 25.3 SEC (11.7-14.0) 26.7 SEC (11.7-14.0) Prothromb Time International Ratio 2.5 (0.8-1.1) 2.7 (0.8-1.1) Activated Partial Thromboplast Time 37 SEC (24-38) 31 SEC (24-38) Sodium Level 121 mmol/L (136-145) 126 mmol/L (136-145) 128 mmol/L (136-145) Potassium Level 5.7 mmol/L (3.5-5.1) 4.3 mmol/L (3.5-5.1) 4.3 mmol/L (3.5-5.1) Chloride Level 89 mmol/L (98-107) 89 mmol/L (98-107) 93 mmol/L (98-107) Carbon Dioxide Level 25 mmol/L (21-32) 26 mmol/L (21-32) 27 mmol/L (21-32) Anion Gap 7 (6-14) 11 (6-14) 8 (6-14) Blood Urea Nitrogen 17 mg/dL (7-20) 22 mg/dL (7-20) 25 mg/dL (7-20) Creatinine 1.2 mg/dL (0.6-1.0) 1.2 mg/dL (0.6-1.0) 1.4 mg/dL (0.6-1.0) Estimated GFR (Cockcroft-Gault) 56.6 56.6 47.4 Glucose Level 111 mg/dL (70-99) 112 mg/dL (70-99) 107 mg/dL (70-99) Lactic Acid Level 5.5 mmol/L (0.4-2.0) Calcium Level 8.3 mg/dL (8.5-10.1) 8.3 mg/dL (8.5-10.1) 8.1 mg/dL (8.5-10.1) Phosphorus Level 6.7 mg/dL (2.6-4.7) 3.7 mg/dL (2.6-4.7) 3.7 mg/dL (2.6-4.7) Magnesium Level 2.1 mg/dL (1.8-2.4) 1.8 mg/dL (1.8-2.4) 1.8 mg/dL (1.8-2.4) Total Bilirubin 2.9 mg/dL (0.2-1.0) Direct Bilirubin 2.0 mg/dL (0.0-0.2) Aspartate Amino Transf (AST/SGOT) 8606 U/L (15-37) Alanine Aminotransferase (ALT/SGPT) 3966 U/L (14-59) Alkaline Phosphatase 89 U/L (46-116) Total Protein 5.3 g/dL (6.4-8.2) Albumin 2.2 g/dL (3.4-5.0) Test 02/13/17 08:00 02/13/17 09:15 02/13/17 12:45 02/13/17 14:05 Sodium Level 127 mmol/L (136-145) 130 mmol/L (136-145) Potassium Level 5.1 mmol/L (3.5-5.1) 4.1 mmol/L (3.5-5.1) Chloride Level 92 mmol/L (98-107) 96 mmol/L (98-107) Carbon Dioxide Level 23 mmol/L (21-32) 25 mmol/L (21-32) Anion Gap 12 (6-14) 9 (6-14) Blood Urea Nitrogen 25 mg/dL (7-20) 29 mg/dL (7-20) Creatinine 1.2 mg/dL (0.6-1.0) 1.5 mg/dL (0.6-1.0) Estimated GFR (Cockcroft-Gault) 56.6 43.8 Glucose Level 92 mg/dL (70-99) 92 mg/dL (70-99) Calcium Level 7.7 mg/dL (8.5-10.1) 7.6 mg/dL (8.5-10.1) Phosphorus Level 3.5 mg/dL (2.6-4.7) 3.7 mg/dL (2.6-4.7) Magnesium Level 2.1 mg/dL (1.8-2.4) 1.9 mg/dL (1.8-2.4) O2 Saturation 99 % (92-99) Arterial Blood pH 7.33 (7.35-7.45) Arterial Blood pH (Temp corrected) 7.39 Arterial Blood pCO2 at Patient Temp 43 mmHg (35-46) Arterial Blood pCO2 (Temp correct) 36 mmHg Arterial Blood pO2 at Patient Temp 148 mmHg (75-108) Arterial Blood pO2 (Temp corrected) 124 mmHg Arterial Blood HCO3 22 mmol/L (21-28) Arterial Blood Base Excess -4 mmol/L (-3-3) FiO2 50 Creatine Kinase 4039 U/L (26-192) White Blood Count 13.7 x10^3/uL (4.0-11.0) Red Blood Count 4.19 x10^6/uL (3.50-5.40) Hemoglobin 13.9 g/dL (12.0-15.5) Hematocrit 41.3 % (36.0-47.0) Mean Corpuscular Volume 99 fL (79-100) Mean Corpuscular Hemoglobin 33 pg (25-35) Mean Corpuscular Hemoglobin Concent 34 g/dL (31-37) Red Cell Distribution Width 12.7 % (11.5-14.5) Platelet Count 188 x10^3/uL (140-400) Prothrombin Time 27.9 SEC (11.7-14.0) Prothromb Time International Ratio 2.8 (0.8-1.1) Activated Partial Thromboplast Time 40 SEC (24-38) Test 02/13/17 16:00 02/13/17 18:40 02/13/17 20:30 02/13/17 21:50 Sodium Level 130 mmol/L (136-145) 129 mmol/L (136-145) 129 mmol/L (136-145) Potassium Level 4.4 mmol/L (3.5-5.1) 4.0 mmol/L (3.5-5.1) Chloride Level 95 mmol/L (98-107) 93 mmol/L (98-107) Carbon Dioxide Level 23 mmol/L (21-32) 23 mmol/L (21-32) Anion Gap 12 (6-14) 13 (6-14) Blood Urea Nitrogen 30 mg/dL (7-20) 34 mg/dL (7-20) Creatinine 1.7 mg/dL (0.6-1.0) 1.8 mg/dL (0.6-1.0) Estimated GFR (Cockcroft-Gault) 37.9 35.5 Glucose Level 133 mg/dL (70-99) 165 mg/dL (70-99) Calcium Level 7.5 mg/dL (8.5-10.1) 7.6 mg/dL (8.5-10.1) Phosphorus Level 4.0 mg/dL (2.6-4.7) 4.2 mg/dL (2.6-4.7) Magnesium Level 2.0 mg/dL (1.8-2.4) 1.9 mg/dL (1.8-2.4) Heparin Anti-Xa Act, Unfractionated 0.10 IU/mL (0.30-0.70) White Blood Count 18.9 x10^3/uL (4.0-11.0) Red Blood Count 4.03 x10^6/uL (3.50-5.40) Hemoglobin 13.5 g/dL (12.0-15.5) Hematocrit 39.6 % (36.0-47.0) Mean Corpuscular Volume 98 fL (79-100) Mean Corpuscular Hemoglobin 34 pg (25-35) Mean Corpuscular Hemoglobin Concent 34 g/dL (31-37) Red Cell Distribution Width 13.0 % (11.5-14.5) Platelet Count 168 x10^3/uL (140-400) Prothrombin Time 30.7 SEC (11.7-14.0) Prothromb Time International Ratio 3.2 (0.8-1.1) Activated Partial Thromboplast Time > 150 SEC (24-38) Test 02/14/17 00:01 02/14/17 01:55 02/14/17 03:45 02/14/17 05:25 Sodium Level 127 mmol/L (136-145) 128 mmol/L (136-145) 128 mmol/L (136-145) Potassium Level 4.3 mmol/L (3.5-5.1) 4.2 mmol/L (3.5-5.1) 4.3 mmol/L (3.5-5.1) Chloride Level 93 mmol/L (98-107) 93 mmol/L (98-107) 94 mmol/L (98-107) Carbon Dioxide Level 23 mmol/L (21-32) 23 mmol/L (21-32) 21 mmol/L (21-32) Anion Gap 11 (6-14) 12 (6-14) 13 (6-14) Blood Urea Nitrogen 34 mg/dL (7-20) 36 mg/dL (7-20) 37 mg/dL (7-20) Creatinine 2.1 mg/dL (0.6-1.0) 2.2 mg/dL (0.6-1.0) 2.2 mg/dL (0.6-1.0) Estimated GFR (Cockcroft-Gault) 29.7 28.1 28.1 Glucose Level 174 mg/dL (70-99) 148 mg/dL (70-99) 144 mg/dL (70-99) Calcium Level 7.5 mg/dL (8.5-10.1) 7.6 mg/dL (8.5-10.1) 7.0 mg/dL (8.5-10.1) Phosphorus Level 4.3 mg/dL (2.6-4.7) 4.6 mg/dL (2.6-4.7) 4.6 mg/dL (2.6-4.7) Magnesium Level 1.9 mg/dL (1.8-2.4) 1.8 mg/dL (1.8-2.4) 1.8 mg/dL (1.8-2.4) Heparin Anti-Xa Act, Unfractionated 0.28 IU/mL (0.30-0.70) White Blood Count 22.4 x10^3/uL (4.0-11.0) Red Blood Count 3.95 x10^6/uL (3.50-5.40) Hemoglobin 13.3 g/dL (12.0-15.5) Hematocrit 38.4 % (36.0-47.0) Mean Corpuscular Volume 97 fL (79-100) Mean Corpuscular Hemoglobin 34 pg (25-35) Mean Corpuscular Hemoglobin Concent 35 g/dL (31-37) Red Cell Distribution Width 13.4 % (11.5-14.5) Platelet Count 174 x10^3/uL (140-400) Prothrombin Time 30.3 SEC (11.7-14.0) Prothromb Time International Ratio 3.1 (0.8-1.1) Activated Partial Thromboplast Time > 150 SEC (24-38) Lactic Acid Level 2.0 mmol/L (0.4-2.0) Albumin 1.8 g/dL (3.4-5.0) Test 02/14/17 07:30 02/14/17 08:35 02/14/17 08:55 O2 Saturation 96 % (92-99) Arterial Blood pH 7.24 (7.35-7.45) Arterial Blood pCO2 at Patient Temp 40 mmHg (35-46) Arterial Blood pO2 at Patient Temp 93 mmHg (75-108) Arterial Blood HCO3 17 mmol/L (21-28) Arterial Blood Base Excess -10 mmol/L (-3-3) FiO2 40 Heparin Anti-Xa Act, Unfractionated 0.24 IU/mL (0.30-0.70) Phosphorus Level 4.4 mg/dL (2.6-4.7) Magnesium Level 1.9 mg/dL (1.8-2.4) Laboratory Tests Test 02/13/17 12:45 02/13/17 14:05 02/13/17 16:00 02/13/17 18:40 Sodium Level 130 mmol/L (136-145) 130 mmol/L (136-145) 129 mmol/L (136-145) Potassium Level 4.1 mmol/L (3.5-5.1) 4.4 mmol/L (3.5-5.1) Chloride Level 96 mmol/L (98-107) 95 mmol/L (98-107) Carbon Dioxide Level 25 mmol/L (21-32) 23 mmol/L (21-32) Anion Gap 9 (6-14) 12 (6-14) Blood Urea Nitrogen 29 mg/dL (7-20) 30 mg/dL (7-20) Creatinine 1.5 mg/dL (0.6-1.0) 1.7 mg/dL (0.6-1.0) Estimated GFR (Cockcroft-Gault) 43.8 37.9 Glucose Level 92 mg/dL (70-99) 133 mg/dL (70-99) Calcium Level 7.6 mg/dL (8.5-10.1) 7.5 mg/dL (8.5-10.1) Phosphorus Level 3.7 mg/dL (2.6-4.7) 4.0 mg/dL (2.6-4.7) Magnesium Level 1.9 mg/dL (1.8-2.4) 2.0 mg/dL (1.8-2.4) Creatine Kinase 4039 U/L (26-192) White Blood Count 13.7 x10^3/uL (4.0-11.0) Red Blood Count 4.19 x10^6/uL (3.50-5.40) Hemoglobin 13.9 g/dL (12.0-15.5) Hematocrit 41.3 % (36.0-47.0) Mean Corpuscular Volume 99 fL (79-100) Mean Corpuscular Hemoglobin 33 pg (25-35) Mean Corpuscular Hemoglobin Concent 34 g/dL (31-37) Red Cell Distribution Width 12.7 % (11.5-14.5) Platelet Count 188 x10^3/uL (140-400) Prothrombin Time 27.9 SEC (11.7-14.0) Prothromb Time International Ratio 2.8 (0.8-1.1) Activated Partial Thromboplast Time 40 SEC (24-38) Heparin Anti-Xa Act, Unfractionated 0.10 IU/mL (0.30-0.70) Test 02/13/17 20:30 02/13/17 21:50 02/14/17 00:01 02/14/17 01:55 Sodium Level 129 mmol/L (136-145) 127 mmol/L (136-145) Potassium Level 4.0 mmol/L (3.5-5.1) 4.3 mmol/L (3.5-5.1) Chloride Level 93 mmol/L (98-107) 93 mmol/L (98-107) Carbon Dioxide Level 23 mmol/L (21-32) 23 mmol/L (21-32) Anion Gap 13 (6-14) 11 (6-14) Blood Urea Nitrogen 34 mg/dL (7-20) 34 mg/dL (7-20) Creatinine 1.8 mg/dL (0.6-1.0) 2.1 mg/dL (0.6-1.0) Estimated GFR (Cockcroft-Gault) 35.5 29.7 Glucose Level 165 mg/dL (70-99) 174 mg/dL (70-99) Calcium Level 7.6 mg/dL (8.5-10.1) 7.5 mg/dL (8.5-10.1) Phosphorus Level 4.2 mg/dL (2.6-4.7) 4.3 mg/dL (2.6-4.7) Magnesium Level 1.9 mg/dL (1.8-2.4) 1.9 mg/dL (1.8-2.4) White Blood Count 18.9 x10^3/uL (4.0-11.0) Red Blood Count 4.03 x10^6/uL (3.50-5.40) Hemoglobin 13.5 g/dL (12.0-15.5) Hematocrit 39.6 % (36.0-47.0) Mean Corpuscular Volume 98 fL (79-100) Mean Corpuscular Hemoglobin 34 pg (25-35) Mean Corpuscular Hemoglobin Concent 34 g/dL (31-37) Red Cell Distribution Width 13.0 % (11.5-14.5) Platelet Count 168 x10^3/uL (140-400) Prothrombin Time 30.7 SEC (11.7-14.0) Prothromb Time International Ratio 3.2 (0.8-1.1) Activated Partial Thromboplast Time > 150 SEC (24-38) Heparin Anti-Xa Act, Unfractionated 0.28 IU/mL (0.30-0.70) Test 02/14/17 03:45 02/14/17 05:25 02/14/17 07:30 02/14/17 08:35 Sodium Level 128 mmol/L (136-145) 128 mmol/L (136-145) Potassium Level 4.2 mmol/L (3.5-5.1) 4.3 mmol/L (3.5-5.1) Chloride Level 93 mmol/L (98-107) 94 mmol/L (98-107) Carbon Dioxide Level 23 mmol/L (21-32) 21 mmol/L (21-32) Anion Gap 12 (6-14) 13 (6-14) Blood Urea Nitrogen 36 mg/dL (7-20) 37 mg/dL (7-20) Creatinine 2.2 mg/dL (0.6-1.0) 2.2 mg/dL (0.6-1.0) Estimated GFR (Cockcroft-Gault) 28.1 28.1 Glucose Level 148 mg/dL (70-99) 144 mg/dL (70-99) Calcium Level 7.6 mg/dL (8.5-10.1) 7.0 mg/dL (8.5-10.1) Phosphorus Level 4.6 mg/dL (2.6-4.7) 4.6 mg/dL (2.6-4.7) Magnesium Level 1.8 mg/dL (1.8-2.4) 1.8 mg/dL (1.8-2.4) White Blood Count 22.4 x10^3/uL (4.0-11.0) Red Blood Count 3.95 x10^6/uL (3.50-5.40) Hemoglobin 13.3 g/dL (12.0-15.5) Hematocrit 38.4 % (36.0-47.0) Mean Corpuscular Volume 97 fL (79-100) Mean Corpuscular Hemoglobin 34 pg (25-35) Mean Corpuscular Hemoglobin Concent 35 g/dL (31-37) Red Cell Distribution Width 13.4 % (11.5-14.5) Platelet Count 174 x10^3/uL (140-400) Prothrombin Time 30.3 SEC (11.7-14.0) Prothromb Time International Ratio 3.1 (0.8-1.1) Activated Partial Thromboplast Time > 150 SEC (24-38) Lactic Acid Level 2.0 mmol/L (0.4-2.0) Albumin 1.8 g/dL (3.4-5.0) O2 Saturation 96 % (92-99) Arterial Blood pH 7.24 (7.35-7.45) Arterial Blood pCO2 at Patient Temp 40 mmHg (35-46) Arterial Blood pO2 at Patient Temp 93 mmHg (75-108) Arterial Blood HCO3 17 mmol/L (21-28) Arterial Blood Base Excess -10 mmol/L (-3-3) FiO2 40 Heparin Anti-Xa Act, Unfractionated 0.24 IU/mL (0.30-0.70) Test 02/14/17 08:55 Phosphorus Level 4.4 mg/dL (2.6-4.7) Magnesium Level 1.9 mg/dL (1.8-2.4) Medications Active Scripts Medications Dose Route/Sig Max Daily Dose Days Date Category Latuda (Lurasidone Hcl) 20 Mg Tablet 20 Mg PO AFTRNOON 02/12/17 Reported Remeron (Mirtazapine) 15 Mg Tablet 1 Tab PO QHS 02/12/17 Reported Oxybutynin Chloride Er (Oxybutynin Chloride) 10 Mg Tab.er.24 1 Tab PO DAILY 02/12/17 Reported Multivitamins (Multivitamin) 1 Each Tablet 1 Tab PO DAILY 02/12/17 Reported Latuda (Lurasidone Hcl) 20 Mg Tablet 10 Mg PO AFTRNOON 02/12/17 Reported Lorazepam 0.5 Mg Tablet 1 Tab PO QEVNG 02/12/17 Reported Duoneb 0.5-3(2.5) Mg/3 Ml (Albuterol/Ipratropium) 3 Ml Ampul.neb 3 Ml NEB BID 02/12/17 Reported Duoneb 0.5-3(2.5) Mg/3 Ml (Albuterol/Ipratropium) 3 Ml Ampul.neb 3 Ml NEB Q4H PRN 02/12/17 Reported Calcium Carbonate 500 Mg Tablet 1,000 Mg PO Q4HRS PRN 02/12/17 Reported Nicotine Gum (Nicotine Polacrilex) 4 Mg Gum 4 Mg BC 02/12/17 Reported Milk Of Magnesia (Magnesium Hydroxide) 400 Mg/5 Ml Oral.susp 400 Mg PO Q3DAYS PRN 02/12/17 Reported Milk Of Magnesia (Magnesium Hydroxide) 400 Mg/5 Ml Oral.susp 400 Mg PO Q3DAYS PRN 02/12/17 Reported Lorazepam 1 Mg Tablet 1 Tab PO Q12HR PRN 02/12/17 Reported Ibuprofen 400 Mg Tablet 200 Mg PO Q8HRS PRN 02/12/17 Reported Cough Drops (Eucalyptus Oil/Menthol) 7 Mg Lozenge 7 Mg MM Q4HRS PRN 02/12/17 Reported Tylenol (Acetaminophen) 325 Mg Tablet 650 Mg PO Q4HRS PRN 02/12/17 Reported Lovaza (Corona-3 Acid Ethyl Esters) 1 Gm Capsule 1 Cap PO QID 02/12/17 Reported Gabapentin 400 Mg Capsule 400 Mg PO QID 02/12/17 Reported Lorazepam 1 Mg Tablet 1 Tab PO BID 02/12/17 Reported Latuda (Lurasidone Hcl) 60 Mg Tablet 60 Mg PO BID 02/12/17 Reported Advair 100-50 Diskus (Fluticasone/Salmeterol) 1 Each Disk.w.dev 1 Puff IH BID 02/12/17 Reported Acetaminophen 325 Mg Capsule 650 Mg PO BID 02/12/17 Reported Vitamin D (Cholecalciferol (Vitamin D3)) 2,000 Unit Capsule 800 Unit PO DAILY 02/12/17 Reported Impression . 1. Acute respiratory failure. The etiology of respiratory failure is multifactorial and includes a combination of cardiac arrest,acute exacerbation of chronic obstructive pulmonary disease, possible effect of benzodiazepine which she is taking chronically, and possible hyponatremia contributing to the encephalopathy. 2. Acute encephalopathy. This is again multifactorial, most likely metabolic and toxic. 3. Status post cardiac arrest. She had asystole. She had CPR for 20 minutes and she was down for 2 hours. Possibility of anoxic brain injury cannot be ruled out. 4. Abnormal echocardiogram with ejection fraction of 35%. She also has diastolic dysfunction and she also has right ventricular dilatation. This is consistent with biventricular failure. Clinically, I suspect less likely thromboembolic disease. However, to rule this out, she will need a CTA chest, but she cannot handle contrast due to renal failure and a V/Q scan cannot be done while on the ventilator. empirically on heparin. RV dilatation could be related to her severe chronic obstructive pulmonary disease. 5. Hyponatremia, being corrected. 6. Abnormal LFTs secondary to hypoperfusion. 7. Suspected anoxic encephalopathy. 8. Acute renal failure. 9. shock, combination of cardiogenic,septic Plan . 1. Continue with present assist control mode and make necessary adjustment based on ABGs. 2. Continue broad-spectrum antibiotics. 3. Marked lactic acidosis related to hypoperfusion from cardiac arrest and it is trending down. 4. Bicarb/ will need HD 5. DVT prophylaxis. The patient already has a high INR. dc heparin protocol. Do not think VTE. 6. Stress ulcer prophylaxis with Pepcid. 7. vasopressor. 8. venous Dopplers of lower extremities neg for DVT 9. Pts condition has worsened. she has multi-system organ failure and severe shock. I did bed side assessment. she has no gag , corneal reflex and no spontaneous respirations.will repeat these tests again in 24 hr after off narcotics for > 24 hrs. May do apnea test. In the mean time I would recommend not to do CPR if she codes 10. Discussed with RN and RT./ cct 35 min NEVA FALCON MD Feb 14, 2017 11:35
--- NOTE | 2017-02-14 11:37 | PDOC2 ---
PALLIATIVE CARE Palliative Care Note Palliative Care Consult requested by Dr. Agee to address plan of care. Patient admitted 02/12/2017 post cardiac arrest at [facility]. Unknown time down. Multiple rounds of resuscitation Diagnosis: S/P cardiac arrest; hypothermia protocol--rewarming competed; elevated Troponin; Hypoglycemia; Hyponatremia, Decreased urine output. hypotensive. Respiratory Failure--On Vent; Heparin gtt; Levophed gtt; Fentanyl gtt, Versed gtt. PMH: COPD, Schizophrenia Does not overbreathe vent; No spontaneous respirations; no gag reflex, no response to painful stimuli.; dark red output per NG tube Jorje Hernandez--court appointed guardian. Document on record. Updated on patient condition per staff. Spoke with Dr Hughes. Plan to discontinue sedation, Fentanyl. Asses for change in neuro status. Neurology Consult. Code Status: Full Code. Plan: Continue to monitor for neuro changes. Continue current treatment plan. Neurology Consult. Physician input needed for Code Status; Guardian can not make EOL decisions. ARABELLA COLEMAN Feb 14, 2017 11:37
--- NOTE | 2017-02-14 11:45 | RAD ---
Chest radiograph 02/14/2017 1:05 PM Indication: Respiratory failure Comparison: Chest radiograph 02/13/2017 Technique: Single portable upright frontal view of the chest is provided. Findings: Endotracheal tube terminates 3.5 cm above the level of the ernst. Right internal jugular catheter terminates in the expected region of the distal superior vena cava. A nasogastric tube is identified coursing below the level of the diaphragm with the side port above the level of the diaphragm. Cardiomediastinal silhouette is stable in appearance, within normal limits. No pleural effusions, pulmonary vascular congestion or pneumothorax. Similar interstitial prominence in the right upper lobe. Osseous structures are normal. Impression: 1. The side-port of the nasogastric tube is well below the diaphragm. This may be advanced further. Otherwise, support lines and tubes are similar in position. 2. Similar appearance of the chest compared to the prior examination from 02/13/2017.
--- NOTE | 2017-02-14 12:38 | PDOC ---
Objective: Objective: D/w RN. Neurology to see. PC following - has appointed guardian. Vital Signs: Vital Signs Date Time Temp Pulse Resp B/P (MAP) Pulse Ox O2 Delivery O2 Flow Rate FiO2 02/14/17 11:36 100 Ventilator 02/14/17 11:00 118 26 126/68 (87) 02/14/17 08:00 98.1 98.1 Labs: Laboratory Tests Test 02/13/17 12:45 02/13/17 14:05 02/13/17 16:00 02/13/17 18:40 Sodium Level 130 mmol/L 130 mmol/L 129 mmol/L Potassium Level 4.1 mmol/L 4.4 mmol/L Chloride Level 96 mmol/L 95 mmol/L Carbon Dioxide Level 25 mmol/L 23 mmol/L Anion Gap 9 12 Blood Urea Nitrogen 29 mg/dL 30 mg/dL Creatinine 1.5 mg/dL 1.7 mg/dL Estimated GFR (Cockcroft-Gault) 43.8 37.9 Glucose Level 92 mg/dL 133 mg/dL Calcium Level 7.6 mg/dL 7.5 mg/dL Phosphorus Level 3.7 mg/dL 4.0 mg/dL Magnesium Level 1.9 mg/dL 2.0 mg/dL Creatine Kinase 4039 U/L White Blood Count 13.7 x10^3/uL Red Blood Count 4.19 x10^6/uL Hemoglobin 13.9 g/dL Hematocrit 41.3 % Mean Corpuscular Volume 99 fL Mean Corpuscular Hemoglobin 33 pg Mean Corpuscular Hemoglobin Concent 34 g/dL Red Cell Distribution Width 12.7 % Platelet Count 188 x10^3/uL Prothrombin Time 27.9 SEC Prothromb Time International Ratio 2.8 Activated Partial Thromboplast Time 40 SEC Heparin Anti-Xa Act, Unfractionated 0.10 IU/mL Test 02/13/17 20:30 02/13/17 21:50 02/14/17 00:01 02/14/17 01:55 Sodium Level 129 mmol/L 127 mmol/L Potassium Level 4.0 mmol/L 4.3 mmol/L Chloride Level 93 mmol/L 93 mmol/L Carbon Dioxide Level 23 mmol/L 23 mmol/L Anion Gap 13 11 Blood Urea Nitrogen 34 mg/dL 34 mg/dL Creatinine 1.8 mg/dL 2.1 mg/dL Estimated GFR (Cockcroft-Gault) 35.5 29.7 Glucose Level 165 mg/dL 174 mg/dL Calcium Level 7.6 mg/dL 7.5 mg/dL Phosphorus Level 4.2 mg/dL 4.3 mg/dL Magnesium Level 1.9 mg/dL 1.9 mg/dL White Blood Count 18.9 x10^3/uL Red Blood Count 4.03 x10^6/uL Hemoglobin 13.5 g/dL Hematocrit 39.6 % Mean Corpuscular Volume 98 fL Mean Corpuscular Hemoglobin 34 pg Mean Corpuscular Hemoglobin Concent 34 g/dL Red Cell Distribution Width 13.0 % Platelet Count 168 x10^3/uL Prothrombin Time 30.7 SEC Prothromb Time International Ratio 3.2 Activated Partial Thromboplast Time > 150 SEC Heparin Anti-Xa Act, Unfractionated 0.28 IU/mL Test 02/14/17 03:45 02/14/17 05:25 02/14/17 07:30 02/14/17 08:35 Sodium Level 128 mmol/L 128 mmol/L Potassium Level 4.2 mmol/L 4.3 mmol/L Chloride Level 93 mmol/L 94 mmol/L Carbon Dioxide Level 23 mmol/L 21 mmol/L Anion Gap 12 13 Blood Urea Nitrogen 36 mg/dL 37 mg/dL Creatinine 2.2 mg/dL 2.2 mg/dL Estimated GFR (Cockcroft-Gault) 28.1 28.1 Glucose Level 148 mg/dL 144 mg/dL Calcium Level 7.6 mg/dL 7.0 mg/dL Phosphorus Level 4.6 mg/dL 4.6 mg/dL Magnesium Level 1.8 mg/dL 1.8 mg/dL White Blood Count 22.4 x10^3/uL Red Blood Count 3.95 x10^6/uL Hemoglobin 13.3 g/dL Hematocrit 38.4 % Mean Corpuscular Volume 97 fL Mean Corpuscular Hemoglobin 34 pg Mean Corpuscular Hemoglobin Concent 35 g/dL Red Cell Distribution Width 13.4 % Platelet Count 174 x10^3/uL Prothrombin Time 30.3 SEC Prothromb Time International Ratio 3.1 Activated Partial Thromboplast Time > 150 SEC Lactic Acid Level 2.0 mmol/L Albumin 1.8 g/dL O2 Saturation 96 % Arterial Blood pH 7.24 Arterial Blood pCO2 at Patient Temp 40 mmHg Arterial Blood pO2 at Patient Temp 93 mmHg Arterial Blood HCO3 17 mmol/L Arterial Blood Base Excess -10 mmol/L FiO2 40 Heparin Anti-Xa Act, Unfractionated 0.24 IU/mL Test 02/14/17 08:55 Phosphorus Level 4.4 mg/dL Magnesium Level 1.9 mg/dL Imaging: CXR Impression: 1. The side-port of the nasogastric tube is well below the diaphragm. This may be advanced further. Otherwise, support lines and tubes are similar in position. 2. Similar appearance of the chest compared to the prior examination from 2016. PE: GEN: intubated LUNGS: vent HEART: tachycardic ABD: non-distended NEURO/PSYCH: unresponsive OTHER: OG w/ minimal dark output A/P: Resp failure post cardiac arrest, encephalopathy, acute renal failure ?coffee-ground emesis/OG ---> slowing w/ stable Hgb Shock liver -- Poor prognosis, other per Dr. Glynn. JO ANN LARSON Feb 14, 2017 12:38
--- NOTE | 2017-02-14 12:59 | PDOC2 ---
NEUROLOGY CONSULT Date of Admission Date of Admission DATE: 02/14/17 TIME: 12:53 Reason for Consult Reason for Consult: Anoxic encephalopathy Referring Physician Referring Physician: Dr. Lockhart Source Source: Chart review History of Present Illness History of Present Illness The patient is a 56-year-old sn[facility] resident who had an out of hospital cardiac arrest. Last normal was noon 2 days ago and she was discovered apneic and pulseless at 2 PM. She underwent at least 20 minutes of resuscitation. She had hypothermia protocol. No seizures were noted. There is no history of stroke. She has had leukocytosis, GI bleeding, and renal insufficiency here in the hospital. Past Medical History Cardiovascular: HTN, Hyperlipidemia Pulmonary: COPD GI: Constipation, Other (anorexia) Hepatobiliary: Hep A/B/C (C) Psych: Anxiety, Addictions, Depression, Schizophrenia Musculoskeletal: Other (costochondritis) Past Surgical History Past Surgical History: Cataract Removal Family History Family History: No pertinent hx Social History Social History long-term resident, has a court appointed power of civil rights attorney but does not have healthcare decision-making velazquez. Current Medications Current Medications Current Medications Calcium Chloride 1,000 mg 1X ONCE IV Last administered on 02/12/17 15:35; Start 02/12/17 at 16:00; Stop 02/12/17 at 16:35; Status DC Dextrose (Dextrose 50%-Water Syringe) 25 gm 1X ONCE IV Last administered on 15:33; Start 02/12/17 at 16:00; Stop 02/12/17 at 16:35; Status DC Sodium Bicarbonate 50 meq 1X ONCE IV Last administered on 02/12/17 15:35; Start 02/12/17 at 16:00; Stop 02/12/17 at 16:35; Status DC Furosemide (Lasix) 40 mg 1X ONCE IVP Last administered on 02/12/17 16:42; Start 02/12/17 at 16:30; Stop 02/12/17 at 16:35; Status DC Sodium Chloride 1,000 ml @ 1,000 mls/hr Q1H IV Last administered on 02/12/17 15:50; Start 02/12/17 at 16:57; Stop 02/13/17 at 07:23; Status DC Fentanyl Citrate (Fentanyl 2ml Vial) 25 mcg PRN Q30MIN PRN IV SED; Start at 17:00 Lorazepam (Ativan) 1 mg PRN Q30MIN PRN IV SEDATION; Start 02/12/17 at 17:00 Fentanyl Citrate 30 ml @ 2.5 mls/hr CONT PRN PRN IV IVF Last administered on 03:27; Start 02/12/17 at 17:00 Propofol 100 ml @ 0 mls/hr CONT PRN IV SEE I/O RECORD; Start 02/12/17 at 17:00 Vecuronium Warren (Norcuron Bolus) DOSE AT 0.1 mg/kg PRN Q30MIN PRN IV SHIVERING Last administered on 02/12/17 19:46; Start 02/12/17 at 17:00; Stop 02/13 at 11:01; Status DC Meperidine HCl (Demerol) 12.5 mg PRN Q30MIN PRN IV SHIVERING; Start 02/12/17 at 17:00 Multi-Ingred Cream/Lotion/Oil/ Oint (Artificial Tears Eye Oint) 1 silvestre PRN Q6HRS PRN OU 0.5 INCH FOR DRY EYE; Start 02/12/17 at 17:00 Famotidine (Pepcid) 20 mg BID IVP Last administered on 02/14/17 10:47; Start at 09:00 Aspirin (Aspirin) 300 mg DAILY WI Last administered on 02/14/17 10:47; Start at 09:00 Sodium Chloride (Normal Saline Flush) 3 ml QSHIFT PRN IV AFTER MEDS AND BLOOD DRAWS; Start 02/12/17 at 17:00 Acetaminophen (Tylenol) 650 mg Q6HRS NG Last administered on 02/13/17 05:51; Start 02/12/17 at 18:00; Stop 02/13/17 at 17:59; Status DC Acetaminophen (Acetaminophen Supp) 650 mg PRN Q6HRS PRN WI MILD PAIN / TEMP; Start 02/13/17 at 17:00 Acetaminophen (Tylenol) 650 mg PRN Q6HRS PRN NG MILD PAIN / TEMP; Start at 17:00 Info 1 ea DAILY PRN MC PER PROTOCOL; Start 02/14/17 at 17:00 Sodium Chloride 500 ml @ 500 mls/hr 1X ONCE IV Last administered on 02/12/17 16:30; Start 02/12/17 at 17:15; Stop 02/12/17 at 18:14; Status DC Sodium Chloride 500 ml @ 500 mls/hr 1X ONCE IV Last administered on 02/12/17 16:50; Start 02/12/17 at 17:15; Stop 02/12/17 at 18:14; Status DC Sodium Chloride 1,000 ml @ 100 mls/hr Q10H IV Last administered on 02/13/17 06 :36; Start 02/12/17 at 19:00; Stop 02/13/17 at 10:51; Status DC Famotidine (Pepcid) 20 mg 1X ONCE PO Last administered on 02/12/17 19:57; Start 02/12/17 at 17:30; Stop 02/12/17 at 17:34; Status DC Methylprednisolone Sodium Succinate (SOLU-Medrol 40MG VIAL) 100 mg TID IV Last administered on 02/14/17 11:01; Start 02/12/17 at 18:00; Stop 02/14/17 at 12:00; Status DC Sodium Chloride 1,000 ml @ 1,000 mls/hr 1X ONCE IV Last administered on 19:31; Start 02/12/17 at 18:15; Stop 02/12/17 at 19:14; Status DC Piperacillin Sod/ Tazobactam Sod (Zosyn Per Pharmacy) 1 each PRN DAILY PRN MC SEE COMMENTS; Start 02/12/17 at 19:15 Vancomycin HCl (Vanco Per Pharmacy) 1 each PRN DAILY PRN MC SEE COMMENTS Last administered on 02/13/17 16:50; Start 02/12/17 at 19:15; Stop 02/14/17 at 07:57; Status DC Piperacillin Sod/ Tazobactam Sod 3.375 gm/Sodium Chloride 50 ml @ 100 mls/hr Q6HRS IV Last administered on 02/14/17 12:47; Start 02/12/17 at 19:30 Vancomycin HCl 1 gm/Sodium Chloride 250 ml @ 250 mls/hr 1X ONCE IV Last administered on 02/12/17 20:00; Start 02/12/17 at 19:30; Stop 02/12/17 at 20:29; Status DC Sodium Bicarbonate 50 meq 1X ONCE IV Last administered on 02/12/17 19:59; Start 02/12/17 at 19:30; Stop 02/12/17 at 19:31; Status DC Norepinephrine Bitartrate 250 ml @ 0 mls/hr CONT PRN IV SEE I/O RECORD Last administered on 02/14/17 10:54; Start 02/12/17 at 19:30 Norepinephrine Bitartrate 250 ml @ As Directed STK-MED ONCE IV ; Start 02/12/17 at 19:25; Stop 02/12/17 at 19:26; Status DC Vancomycin HCl 750 mg/Sodium Chloride 250 ml @ 250 mls/hr Q24H IV Last administered on 02/13/17 20:34; Start 02/13/17 at 20:00; Stop 02/14/17 at 07:57; Status DC Vancomycin HCl 1 each 1X ONCE MC ; Start 02/14/17 at 19:30; Stop 02/14/17 at 19: 31; Status Cancel Sodium Chloride 1,000 ml @ 1,000 mls/hr 1X ONCE IV Last administered on 05:05; Start 02/13/17 at 04:45; Stop 02/13/17 at 05:44; Status DC Sodium Chloride 1,000 ml @ 1,000 mls/hr 1X ONCE IV Last administered on 05:35; Start 02/13/17 at 05:30; Stop 02/13/17 at 06:29; Status DC Magnesium Sulfate/ Dextrose 50 ml @ 25 mls/hr PRN DAILY PRN IV for Mag < 1.7 on am labs; Start 02/13/17 at 10:45 Dextrose/Sodium Chloride 1,000 ml @ 75 mls/hr [id number] IV Last administered on 02/14/17 03:28; Start 02/13/17 at 11:00 Vecuronium Warren (Norcuron Bolus) 5 mg PRN Q30MIN PRN IV SHIVERING; Start 02/13/17 at 11:15 Lidocaine/Sodium Bicarbonate (Buffered Lidocaine 1%) 3 ml 1X ONCE IJ Last administered on 02/13/17 11:40; Start 02/13/17 at 11:15; Stop 02/13/17 at 11:26; Status DC Heparin Sodium/ Sodium Chloride 60 unit 1X ONCE IV Last administered on 11:40; Start 02/13/17 at 11:15; Stop 02/13/17 at 11:26; Status DC Lidocaine/Sodium Bicarbonate (Buffered Lidocaine 1%) 20 ml STK-MED ONCE IJ ; Start 02/13/17 at 11:22; Stop 02/13/17 at 11:29; Status DC Heparin Sodium (Porcine) (Heparin Sodium) 2,075 unit 1X ONCE IV Last administered on 02/13/17 12:45; Start 02/13/17 at 11:45; Stop 02/13/17 at 11:56; Status DC Heparin Sodium/ Dextrose 500 ml @ 16.5 mls/hr CONT PRN IV SEE I/O RECORD Last administered on 02/13/17 12:47; Start 02/13/17 at 11:45 Heparin Sodium (Porcine) (Heparin Sodium) 1,550 unit PRN Q6HRS PRN IV FOR UFH LEVEL LESS THAN 0.2 Last administered on 02/13/17 20:22; Start 02/13/17 at 11:45 Heparin Sodium (Porcine) (Heparin Sodium) 800 unit PRN Q6HRS PRN IV FOR UFH LEVEL 0.2 - 0.29 Last administered on 02/14/17 02:34; Start 02/13/17 at 11:45 Warfarin Sodium (Coumadin Per Pharmacy) 1 each PRN DAILY PRN MC PER PROTOCOL; Start 02/13/17 at 11:45; Status Cancel Info (Anti-Coagulation Monitoring By Pharmacy) 1 each PRN DAILY PRN MC SEE COMMENTS; Start 02/13/17 at 13:00 Calcium Chloride 1,000 mg STK-MED ONCE IV ; Start 02/12/17 at 10:00; Stop at 16:27; Status DC Epinephrine HCl (EPINEPHrine SYRINGE) 1 mg STK-MED ONCE .ROUTE ; Start 02/12/17 at 10:00; Stop 02/13/17 at 16:27; Status DC Dextrose (Dextrose 50%-Water Syringe) 25 gm STK-MED ONCE IV ; Start 02/12/17 at 10:00; Stop 02/13/17 at 16:27; Status DC Sodium Bicarbonate 50 meq STK-MED ONCE .ROUTE ; Start 02/12/17 at 10:00; Stop 02/13/17 at 16:27; Status DC Methylprednisolone Sodium Succinate (SOLU-Medrol 125MG VIAL) 100 mg TID IV ; Start 02/14/17 at 18:00 Active Scripts Active Reported Latuda (Lurasidone Hcl) 20 Mg Tablet 20 Mg PO AFTRNOON Remeron (Mirtazapine) 15 Mg Tablet 1 Tab PO QHS Oxybutynin Chloride Er (Oxybutynin Chloride) 10 Mg Tab.er.24 1 Tab PO DAILY Multivitamins (Multivitamin) 1 Each Tablet 1 Tab PO DAILY Latuda (Lurasidone Hcl) 20 Mg Tablet 10 Mg PO AFTRNOON Lorazepam 0.5 Mg Tablet 1 Tab PO QEVNG Duoneb 0.5-3(2.5) Mg/3 Ml (Albuterol/Ipratropium) 3 Ml Ampul.neb 3 Ml NEB BID Duoneb 0.5-3(2.5) Mg/3 Ml (Albuterol/Ipratropium) 3 Ml Ampul.neb 3 Ml NEB Q4H PRN Calcium Carbonate 500 Mg Tablet 1,000 Mg PO Q4HRS PRN Nicotine Gum (Nicotine Polacrilex) 4 Mg Gum 4 Mg BC Milk Of Magnesia (Magnesium Hydroxide) 400 Mg/5 Ml Oral.susp 400 Mg PO Q3DAYS PRN Milk Of Magnesia (Magnesium Hydroxide) 400 Mg/5 Ml Oral.susp 400 Mg PO Q3DAYS PRN Lorazepam 1 Mg Tablet 1 Tab PO Q12HR PRN Ibuprofen 400 Mg Tablet 200 Mg PO Q8HRS PRN Cough Drops (Eucalyptus Oil/Menthol) 7 Mg Lozenge 7 Mg MM Q4HRS PRN Tylenol (Acetaminophen) 325 Mg Tablet 650 Mg PO Q4HRS PRN Lovaza ([place]-3 Acid Ethyl Esters) 1 Gm Capsule 1 Cap PO QID Gabapentin 400 Mg Capsule 400 Mg PO QID Lorazepam 1 Mg Tablet 1 Tab PO BID Latuda (Lurasidone Hcl) 60 Mg Tablet 60 Mg PO BID Advair 100-50 Diskus (Fluticasone/Salmeterol) 1 Each Disk.w.dev 1 Puff IH BID Acetaminophen 325 Mg Capsule 650 Mg PO BID Vitamin D (Cholecalciferol (Vitamin D3)) 2,000 Unit Capsule 800 Unit PO DAILY Allergies Allergies: Coded Allergies: divalproex sodium (Verified Allergy, Intermediate, Unknown, 02/12/17) PT NOT VERBALLY RESPONSIVE AT THIS TIME, ALLERGIES LISTED ON PAPERWORK I S O L A T I O N *CONTACT* (Verified Allergy, Unknown, 02/14/17) mrsa ROS Review of System Unobtainable Physical Exam Physical Examination PHYSICAL EXAMINATION: Vital signs: see above. General appearance is normal and in no acute distress. HEENT: Normocephalic and nontraumatic. Eyes, nose, ears, and throat are unremarkable. Neck is supple. No lymphadenopathy. No bruits are heard over the carotid artery. No crepitus. NEUROLOGIC: Intubated in the ICU, no response to pain or voice. Pupils are small but minimally reactive. Vestibular-ocular (doll's eye) reflex is present. She does not trigger the ventilator. Vitals VITALS Vital Signs Date Time Temp Pulse Resp B/P (MAP) Pulse Ox O2 Delivery O2 Flow Rate FiO2 02/14/17 11:36 100 Ventilator 02/14/17 11:00 118 26 126/68 (87) 02/14/17 08:00 98.1 98.1 Labs Labs Laboratory Tests Test 02/12/17 15:24 02/12/17 15:45 02/12/17 15:49 02/12/17 15:50 White Blood Count 12.7 x10^3/uL (4.0-11.0) Red Blood Count 3.69 x10^6/uL (3.50-5.40) Hemoglobin 12.3 g/dL (12.0-15.5) Hematocrit 37.4 % (36.0-47.0) Mean Corpuscular Volume 102 fL (79-100) Mean Corpuscular Hemoglobin 33 pg (25-35) Mean Corpuscular Hemoglobin Concent 33 g/dL (31-37) Red Cell Distribution Width 13.1 % (11.5-14.5) Platelet Count 212 x10^3/uL (140-400) Neutrophils (%) (Auto) 88 % (31-73) Lymphocytes (%) (Auto) 9 % (24-48) Monocytes (%) (Auto) 3 % (0-9) Eosinophils (%) (Auto) 0 % (0-3) Basophils (%) (Auto) 0 % (0-3) Neutrophils # (Auto) 11.1 x10^3uL (1.8-7.7) Lymphocytes # (Auto) 1.1 x10^3/uL (1.0-4.8) Monocytes # (Auto) 0.4 x10^3/uL (0.0-1.1) Eosinophils # (Auto) 0.0 x10^3/uL (0.0-0.7) Basophils # (Auto) 0.1 x10^3/uL (0.0-0.2) Segmented Neutrophils % 37 % (35-66) Band Neutrophils % 44 % (0-9) Lymphocytes % 4 % (24-48) Atypical Lymphocytes % (Manual) 5 % (0-0) Monocytes % 5 % (0-10) Basophils % 1 % (0-3) Metamyelocytes % 4 % (0-0) Toxic Granulation Present Dohle Bodies Present Platelet Estimate Adequate (ADEQUATE) Large Platelets Present Polychromasia Slight Poikilocytosis Slight Anisocytosis Slight Macrocytosis Slight Target Cells Tear Drop Cells Occ Ovalocytes Occ Crenated Cell Present Sodium Level 117 mmol/L (136-145) Potassium Level 7.2 mmol/L (3.5-5.1) Chloride Level 81 mmol/L (98-107) Carbon Dioxide Level 23 mmol/L (21-32) Anion Gap 13 (6-14) Blood Urea Nitrogen 15 mg/dL (7-20) Creatinine 1.0 mg/dL (0.6-1.0) Estimated GFR (Cockcroft-Gault) 69.9 Glucose Level 20 mg/dL (70-99) Lactic Acid Level 12.9 mmol/L (0.4-2.0) Calcium Level 9.6 mg/dL (8.5-10.1) Total Bilirubin 0.8 mg/dL (0.2-1.0) Direct Bilirubin 0.3 mg/dL (0.0-0.2) Aspartate Amino Transf (AST/SGOT) 554 U/L (15-37) Alanine Aminotransferase (ALT/SGPT) 305 U/L (14-59) Alkaline Phosphatase 95 U/L (46-116) Bedside Troponin I 0.78 ng/ml (<0.08) Troponin I Quantitative 1.352 ng/mL (0.000-0.055) YV-Eqd-E-Type Natriuretic Peptide 30616 pg/mL (0-124) Total Protein 6.9 g/dL (6.4-8.2) Albumin 2.9 g/dL (3.4-5.0) Lipase 43 U/L (73-393) Glucose (Fingerstick) 209 mg/dL (70-99) Urine Collection Type Unknown Urine Color Yellow Urine Clarity Cloudy Urine pH 5.5 Urine Specific [place] 1.010 Urine Protein 30 mg/dL (NEG-TRACE) Urine Glucose (UA) Negative mg/dL (NEG) Urine Ketones (Stick) Negative mg/dL (NEG) Urine Blood Moderate (NEG) Urine Nitrite Negative (NEG) Urine Bilirubin Negative (NEG) Urine Urobilinogen Dipstick 0.2 mg/dL (0.2 mg/dL) Urine Leukocyte Esterase Trace (NEG) Urine RBC 1-2 /HPF (0-2) Urine WBC 1-4 /HPF (0-4) Urine Squamous Epithelial Cells Occ /LPF Urine Bacteria Many /HPF (0-FEW) Urine Hyaline Casts Occasional /HPF Urine Opiates Screen Neg (NEG) Urine Methadone Screen Neg (NEG) Urine Barbiturates Neg (NEG) Urine Phencyclidine Screen Neg (NEG) Urine Amphetamine/Methamphetamine Neg (NEG) Urine Benzodiazepines Screen Neg (NEG) Urine Cocaine Screen Neg (NEG) Urine Cannabinoids Screen Neg (NEG) Urine Ethyl Alcohol Neg (NEG) O2 Saturation 99 % (92-99) Arterial Blood pH 7.03 (7.35-7.45) Arterial Blood pCO2 at Patient Temp 62 mmHg (35-46) Arterial Blood pO2 at Patient Temp 493 mmHg (75-108) Arterial Blood HCO3 16 mmol/L (21-28) Arterial Blood Base Excess -15 mmol/L (-3-3) Oxyhemoglobin 95.3 % Methemoglobin 0.5 % (0.0-1.9) Carbon Monoxide, Quantitative 3.1 % (0.0-1.9) FiO2 100 Test 02/12/17 16:29 02/12/17 17:19 02/12/17 17:30 02/12/17 19:00 Glucose (Fingerstick) 140 mg/dL (70-99) Sodium Level 118 mmol/L (136-145) Potassium Level 5.7 mmol/L (3.5-5.1) Chloride Level 86 mmol/L (98-107) Carbon Dioxide Level 20 mmol/L (21-32) Anion Gap 12 (6-14) Blood Urea Nitrogen 16 mg/dL (7-20) Creatinine 1.2 mg/dL (0.6-1.0) Estimated GFR (Cockcroft-Gault) 56.6 Glucose Level 115 mg/dL (70-99) Calcium Level 8.9 mg/dL (8.5-10.1) Thyroid Stimulating Hormone (TSH) 3.671 uIU/mL (0.358-3.74) O2 Saturation 99 % (92-99) Arterial Blood pH 7.11 (7.35-7.45) Arterial Blood pCO2 at Patient Temp 59 mmHg (35-46) Arterial Blood pO2 at Patient Temp 199 mmHg (75-108) Arterial Blood HCO3 18 mmol/L (21-28) Arterial Blood Base Excess -11 mmol/L (-3-3) FiO2 60 Nasal Screen MRSA (PCR) Positive (Negative) Test 02/12/17 19:30 02/12/17 23:40 02/13/17 03:55 02/13/17 05:50 White Blood Count 14.8 x10^3/uL (4.0-11.0) 9.4 x10^3/uL (4.0-11.0) Red Blood Count 3.46 x10^6/uL (3.50-5.40) 3.51 x10^6/uL (3.50-5.40) Hemoglobin 11.8 g/dL (12.0-15.5) 12.1 g/dL (12.0-15.5) Hematocrit 33.5 % (36.0-47.0) 34.1 % (36.0-47.0) Mean Corpuscular Volume 97 fL (79-100) 97 fL (79-100) Mean Corpuscular Hemoglobin 34 pg (25-35) 35 pg (25-35) Mean Corpuscular Hemoglobin Concent 35 g/dL (31-37) 36 g/dL (31-37) Red Cell Distribution Width 13.9 % (11.5-14.5) 13.1 % (11.5-14.5) Platelet Count 261 x10^3/uL (140-400) 169 x10^3/uL (140-400) Prothrombin Time 25.3 SEC (11.7-14.0) 26.7 SEC (11.7-14.0) Prothromb Time International Ratio 2.5 (0.8-1.1) 2.7 (0.8-1.1) Activated Partial Thromboplast Time 37 SEC (24-38) 31 SEC (24-38) Sodium Level 121 mmol/L (136-145) 126 mmol/L (136-145) 128 mmol/L (136-145) Potassium Level 5.7 mmol/L (3.5-5.1) 4.3 mmol/L (3.5-5.1) 4.3 mmol/L (3.5-5.1) Chloride Level 89 mmol/L (98-107) 89 mmol/L (98-107) 93 mmol/L (98-107) Carbon Dioxide Level 25 mmol/L (21-32) 26 mmol/L (21-32) 27 mmol/L (21-32) Anion Gap 7 (6-14) 11 (6-14) 8 (6-14) Blood Urea Nitrogen 17 mg/dL (7-20) 22 mg/dL (7-20) 25 mg/dL (7-20) Creatinine 1.2 mg/dL (0.6-1.0) 1.2 mg/dL (0.6-1.0) 1.4 mg/dL (0.6-1.0) Estimated GFR (Cockcroft-Gault) 56.6 56.6 47.4 Glucose Level 111 mg/dL (70-99) 112 mg/dL (70-99) 107 mg/dL (70-99) Lactic Acid Level 5.5 mmol/L (0.4-2.0) Calcium Level 8.3 mg/dL (8.5-10.1) 8.3 mg/dL (8.5-10.1) 8.1 mg/dL (8.5-10.1) Phosphorus Level 6.7 mg/dL (2.6-4.7) 3.7 mg/dL (2.6-4.7) 3.7 mg/dL (2.6-4.7) Magnesium Level 2.1 mg/dL (1.8-2.4) 1.8 mg/dL (1.8-2.4) 1.8 mg/dL (1.8-2.4) Total Bilirubin 2.9 mg/dL (0.2-1.0) Direct Bilirubin 2.0 mg/dL (0.0-0.2) Aspartate Amino Transf (AST/SGOT) 8606 U/L (15-37) Alanine Aminotransferase (ALT/SGPT) 3966 U/L (14-59) Alkaline Phosphatase 89 U/L (46-116) Total Protein 5.3 g/dL (6.4-8.2) Albumin 2.2 g/dL (3.4-5.0) Test 02/13/17 08:00 02/13/17 09:15 02/13/17 12:45 02/13/17 14:05 Sodium Level 127 mmol/L (136-145) 130 mmol/L (136-145) Potassium Level 5.1 mmol/L (3.5-5.1) 4.1 mmol/L (3.5-5.1) Chloride Level 92 mmol/L (98-107) 96 mmol/L (98-107) Carbon Dioxide Level 23 mmol/L (21-32) 25 mmol/L (21-32) Anion Gap 12 (6-14) 9 (6-14) Blood Urea Nitrogen 25 mg/dL (7-20) 29 mg/dL (7-20) Creatinine 1.2 mg/dL (0.6-1.0) 1.5 mg/dL (0.6-1.0) Estimated GFR (Cockcroft-Gault) 56.6 43.8 Glucose Level 92 mg/dL (70-99) 92 mg/dL (70-99) Calcium Level 7.7 mg/dL (8.5-10.1) 7.6 mg/dL (8.5-10.1) Phosphorus Level 3.5 mg/dL (2.6-4.7) 3.7 mg/dL (2.6-4.7) Magnesium Level 2.1 mg/dL (1.8-2.4) 1.9 mg/dL (1.8-2.4) O2 Saturation 99 % (92-99) Arterial Blood pH 7.33 (7.35-7.45) Arterial Blood pH (Temp corrected) 7.39 Arterial Blood pCO2 at Patient Temp 43 mmHg (35-46) Arterial Blood pCO2 (Temp correct) 36 mmHg Arterial Blood pO2 at Patient Temp 148 mmHg (75-108) Arterial Blood pO2 (Temp corrected) 124 mmHg Arterial Blood HCO3 22 mmol/L (21-28) Arterial Blood Base Excess -4 mmol/L (-3-3) FiO2 50 Creatine Kinase 4039 U/L (26-192) White Blood Count 13.7 x10^3/uL (4.0-11.0) Red Blood Count 4.19 x10^6/uL (3.50-5.40) Hemoglobin 13.9 g/dL (12.0-15.5) Hematocrit 41.3 % (36.0-47.0) Mean Corpuscular Volume 99 fL (79-100) Mean Corpuscular Hemoglobin 33 pg (25-35) Mean Corpuscular Hemoglobin Concent 34 g/dL (31-37) Red Cell Distribution Width 12.7 % (11.5-14.5) Platelet Count 188 x10^3/uL (140-400) Prothrombin Time 27.9 SEC (11.7-14.0) Prothromb Time International Ratio 2.8 (0.8-1.1) Activated Partial Thromboplast Time 40 SEC (24-38) Test 02/13/17 16:00 02/13/17 18:40 02/13/17 20:30 02/13/17 21:50 Sodium Level 130 mmol/L (136-145) 129 mmol/L (136-145) 129 mmol/L (136-145) Potassium Level 4.4 mmol/L (3.5-5.1) 4.0 mmol/L (3.5-5.1) Chloride Level 95 mmol/L (98-107) 93 mmol/L (98-107) Carbon Dioxide Level 23 mmol/L (21-32) 23 mmol/L (21-32) Anion Gap 12 (6-14) 13 (6-14) Blood Urea Nitrogen 30 mg/dL (7-20) 34 mg/dL (7-20) Creatinine 1.7 mg/dL (0.6-1.0) 1.8 mg/dL (0.6-1.0) Estimated GFR (Cockcroft-Gault) 37.9 35.5 Glucose Level 133 mg/dL (70-99) 165 mg/dL (70-99) Calcium Level 7.5 mg/dL (8.5-10.1) 7.6 mg/dL (8.5-10.1) Phosphorus Level 4.0 mg/dL (2.6-4.7) 4.2 mg/dL (2.6-4.7) Magnesium Level 2.0 mg/dL (1.8-2.4) 1.9 mg/dL (1.8-2.4) Heparin Anti-Xa Act, Unfractionated 0.10 IU/mL (0.30-0.70) White Blood Count 18.9 x10^3/uL (4.0-11.0) Red Blood Count 4.03 x10^6/uL (3.50-5.40) Hemoglobin 13.5 g/dL (12.0-15.5) Hematocrit 39.6 % (36.0-47.0) Mean Corpuscular Volume 98 fL (79-100) Mean Corpuscular Hemoglobin 34 pg (25-35) Mean Corpuscular Hemoglobin Concent 34 g/dL (31-37) Red Cell Distribution Width 13.0 % (11.5-14.5) Platelet Count 168 x10^3/uL (140-400) Prothrombin Time 30.7 SEC (11.7-14.0) Prothromb Time International Ratio 3.2 (0.8-1.1) Activated Partial Thromboplast Time > 150 SEC (24-38) Test 02/14/17 00:01 02/14/17 01:55 02/14/17 03:45 02/14/17 05:25 Sodium Level 127 mmol/L (136-145) 128 mmol/L (136-145) 128 mmol/L (136-145) Potassium Level 4.3 mmol/L (3.5-5.1) 4.2 mmol/L (3.5-5.1) 4.3 mmol/L (3.5-5.1) Chloride Level 93 mmol/L (98-107) 93 mmol/L (98-107) 94 mmol/L (98-107) Carbon Dioxide Level 23 mmol/L (21-32) 23 mmol/L (21-32) 21 mmol/L (21-32) Anion Gap 11 (6-14) 12 (6-14) 13 (6-14) Blood Urea Nitrogen 34 mg/dL (7-20) 36 mg/dL (7-20) 37 mg/dL (7-20) Creatinine 2.1 mg/dL (0.6-1.0) 2.2 mg/dL (0.6-1.0) 2.2 mg/dL (0.6-1.0) Estimated GFR (Cockcroft-Gault) 29.7 28.1 28.1 Glucose Level 174 mg/dL (70-99) 148 mg/dL (70-99) 144 mg/dL (70-99) Calcium Level 7.5 mg/dL (8.5-10.1) 7.6 mg/dL (8.5-10.1) 7.0 mg/dL (8.5-10.1) Phosphorus Level 4.3 mg/dL (2.6-4.7) 4.6 mg/dL (2.6-4.7) 4.6 mg/dL (2.6-4.7) Magnesium Level 1.9 mg/dL (1.8-2.4) 1.8 mg/dL (1.8-2.4) 1.8 mg/dL (1.8-2.4) Heparin Anti-Xa Act, Unfractionated 0.28 IU/mL (0.30-0.70) White Blood Count 22.4 x10^3/uL (4.0-11.0) Red Blood Count 3.95 x10^6/uL (3.50-5.40) Hemoglobin 13.3 g/dL (12.0-15.5) Hematocrit 38.4 % (36.0-47.0) Mean Corpuscular Volume 97 fL (79-100) Mean Corpuscular Hemoglobin 34 pg (25-35) Mean Corpuscular Hemoglobin Concent 35 g/dL (31-37) Red Cell Distribution Width 13.4 % (11.5-14.5) Platelet Count 174 x10^3/uL (140-400) Prothrombin Time 30.3 SEC (11.7-14.0) Prothromb Time International Ratio 3.1 (0.8-1.1) Activated Partial Thromboplast Time > 150 SEC (24-38) Lactic Acid Level 2.0 mmol/L (0.4-2.0) Albumin 1.8 g/dL (3.4-5.0) Test 02/14/17 07:30 02/14/17 08:35 02/14/17 08:55 O2 Saturation 96 % (92-99) Arterial Blood pH 7.24 (7.35-7.45) Arterial Blood pCO2 at Patient Temp 40 mmHg (35-46) Arterial Blood pO2 at Patient Temp 93 mmHg (75-108) Arterial Blood HCO3 17 mmol/L (21-28) Arterial Blood Base Excess -10 mmol/L (-3-3) FiO2 40 Heparin Anti-Xa Act, Unfractionated 0.24 IU/mL (0.30-0.70) Phosphorus Level 4.4 mg/dL (2.6-4.7) Magnesium Level 1.9 mg/dL (1.8-2.4) Laboratory Tests Test 02/13/17 14:05 02/13/17 16:00 02/13/17 18:40 02/13/17 20:30 White Blood Count 13.7 x10^3/uL (4.0-11.0) Red Blood Count 4.19 x10^6/uL (3.50-5.40) Hemoglobin 13.9 g/dL (12.0-15.5) Hematocrit 41.3 % (36.0-47.0) Mean Corpuscular Volume 99 fL (79-100) Mean Corpuscular Hemoglobin 33 pg (25-35) Mean Corpuscular Hemoglobin Concent 34 g/dL (31-37) Red Cell Distribution Width 12.7 % (11.5-14.5) Platelet Count 188 x10^3/uL (140-400) Prothrombin Time 27.9 SEC (11.7-14.0) Prothromb Time International Ratio 2.8 (0.8-1.1) Activated Partial Thromboplast Time 40 SEC (24-38) Sodium Level 130 mmol/L (136-145) 129 mmol/L (136-145) 129 mmol/L (136-145) Potassium Level 4.4 mmol/L (3.5-5.1) 4.0 mmol/L (3.5-5.1) Chloride Level 95 mmol/L (98-107) 93 mmol/L (98-107) Carbon Dioxide Level 23 mmol/L (21-32) 23 mmol/L (21-32) Anion Gap 12 (6-14) 13 (6-14) Blood Urea Nitrogen 30 mg/dL (7-20) 34 mg/dL (7-20) Creatinine 1.7 mg/dL (0.6-1.0) 1.8 mg/dL (0.6-1.0) Estimated GFR (Cockcroft-Gault) 37.9 35.5 Glucose Level 133 mg/dL (70-99) 165 mg/dL (70-99) Calcium Level 7.5 mg/dL (8.5-10.1) 7.6 mg/dL (8.5-10.1) Phosphorus Level 4.0 mg/dL (2.6-4.7) 4.2 mg/dL (2.6-4.7) Magnesium Level 2.0 mg/dL (1.8-2.4) 1.9 mg/dL (1.8-2.4) Heparin Anti-Xa Act, Unfractionated 0.10 IU/mL (0.30-0.70) Test 02/13/17 21:50 02/14/17 00:01 02/14/17 01:55 02/14/17 03:45 White Blood Count 18.9 x10^3/uL (4.0-11.0) Red Blood Count 4.03 x10^6/uL (3.50-5.40) Hemoglobin 13.5 g/dL (12.0-15.5) Hematocrit 39.6 % (36.0-47.0) Mean Corpuscular Volume 98 fL (79-100) Mean Corpuscular Hemoglobin 34 pg (25-35) Mean Corpuscular Hemoglobin Concent 34 g/dL (31-37) Red Cell Distribution Width 13.0 % (11.5-14.5) Platelet Count 168 x10^3/uL (140-400) Prothrombin Time 30.7 SEC (11.7-14.0) Prothromb Time International Ratio 3.2 (0.8-1.1) Activated Partial Thromboplast Time > 150 SEC (24-38) Sodium Level 127 mmol/L (136-145) 128 mmol/L (136-145) Potassium Level 4.3 mmol/L (3.5-5.1) 4.2 mmol/L (3.5-5.1) Chloride Level 93 mmol/L (98-107) 93 mmol/L (98-107) Carbon Dioxide Level 23 mmol/L (21-32) 23 mmol/L (21-32) Anion Gap 11 (6-14) 12 (6-14) Blood Urea Nitrogen 34 mg/dL (7-20) 36 mg/dL (7-20) Creatinine 2.1 mg/dL (0.6-1.0) 2.2 mg/dL (0.6-1.0) Estimated GFR (Cockcroft-Gault) 29.7 28.1 Glucose Level 174 mg/dL (70-99) 148 mg/dL (70-99) Calcium Level 7.5 mg/dL (8.5-10.1) 7.6 mg/dL (8.5-10.1) Phosphorus Level 4.3 mg/dL (2.6-4.7) 4.6 mg/dL (2.6-4.7) Magnesium Level 1.9 mg/dL (1.8-2.4) 1.8 mg/dL (1.8-2.4) Heparin Anti-Xa Act, Unfractionated 0.28 IU/mL (0.30-0.70) Test 02/14/17 05:25 02/14/17 07:30 02/14/17 08:35 02/14/17 08:55 White Blood Count 22.4 x10^3/uL (4.0-11.0) Red Blood Count 3.95 x10^6/uL (3.50-5.40) Hemoglobin 13.3 g/dL (12.0-15.5) Hematocrit 38.4 % (36.0-47.0) Mean Corpuscular Volume 97 fL (79-100) Mean Corpuscular Hemoglobin 34 pg (25-35) Mean Corpuscular Hemoglobin Concent 35 g/dL (31-37) Red Cell Distribution Width 13.4 % (11.5-14.5) Platelet Count 174 x10^3/uL (140-400) Prothrombin Time 30.3 SEC (11.7-14.0) Prothromb Time International Ratio 3.1 (0.8-1.1) Activated Partial Thromboplast Time > 150 SEC (24-38) Sodium Level 128 mmol/L (136-145) Potassium Level 4.3 mmol/L (3.5-5.1) Chloride Level 94 mmol/L (98-107) Carbon Dioxide Level 21 mmol/L (21-32) Anion Gap 13 (6-14) Blood Urea Nitrogen 37 mg/dL (7-20) Creatinine 2.2 mg/dL (0.6-1.0) Estimated GFR (Cockcroft-Gault) 28.1 Glucose Level 144 mg/dL (70-99) Lactic Acid Level 2.0 mmol/L (0.4-2.0) Calcium Level 7.0 mg/dL (8.5-10.1) Phosphorus Level 4.6 mg/dL (2.6-4.7) 4.4 mg/dL (2.6-4.7) Magnesium Level 1.8 mg/dL (1.8-2.4) 1.9 mg/dL (1.8-2.4) Albumin 1.8 g/dL (3.4-5.0) O2 Saturation 96 % (92-99) Arterial Blood pH 7.24 (7.35-7.45) Arterial Blood pCO2 at Patient Temp 40 mmHg (35-46) Arterial Blood pO2 at Patient Temp 93 mmHg (75-108) Arterial Blood HCO3 17 mmol/L (21-28) Arterial Blood Base Excess -10 mmol/L (-3-3) FiO2 40 Heparin Anti-Xa Act, Unfractionated 0.24 IU/mL (0.30-0.70) Images Images CT head 02/12: FINDINGS: Mild bilateral periventricular white matter hypodensities likely chronic small vessel ischemic disease. No evidence of acute intracranial hemorrhage. No extra-axial fluid collections. No mass effect or midline shift. Ventricular size is appropriate. Basal cisterns are patent. No fractures identified.Brumfield-white differentiation is preserved.Globes and orbits are within normal limits. Moderate mucosal thickening with air-fluid levels identified in the bilateral ethmoidal sinuses and sphenoid sinuses. There is moderate mucosal thickening identified in the bilateral maxillary sinuses likely sinus disease. IMPRESSION: 1. No acute intracranial findings. 2. Sinus disease. Assessment/Plan Assessment/Plan Impression: Anoxic encephalopathy, does have some preserved brainstem reflexes so she is not brain . She is status-post hypothermic protocol. Recommendations: Overall prognosis is very poor, I do recommend DO NOT RESUSCITATE status, perhaps 2 or 3 more days of monitoring. If she is still alive on 02/17, we could get an EEG. I see no reason for the study right away, though. Thank you for letting me help with the patient's care. SIVA GARCIA MD Feb 14, 2017 12:59
[2017-02-14 13:06] LABS: CALCIUM 7.4 mg/dL (8.5-10.1); CREATININE 2.4 mg/dL (0.6-1.0); GFR 25.5; POTASSIUM 4.3 mmol/L (3.5-5.1)
[2017-02-14 13:26] LABS: CALCIUM 7.1 mg/dL (8.5-10.1); CREATININE 2.6 mg/dL (0.6-1.0); GFR 23.2; POTASSIUM 4.4 mmol/L (3.5-5.1)
[2017-02-14 13:30] LABS: MAGNESIUM 1.7 mg/dL (1.8-2.4); PHOSPHORUS 4.5 mg/dL (2.6-4.7)
--- NOTE | 2017-02-14 15:04 | RAD ---
Portable chest, 02/13/2017: 11:55 AM: History: Check central line placement Comparison is made to a study from 02/12/2007. A right jugular central venous catheter has been inserted extending into the inferior aspect of the superior vena cava near the atriocaval junction. An ET tube remains in place with its tip located approximately 8 cm above the ernst. An NG tube extends at least into the distal esophagus, although its tip is not visualized. The heart is within normal limits in size. There are moderate ongoing interstitial opacities in the lungs, right greater than left. These appear to have improved slightly since 02/12/2017, however, some of this apparent difference is likely due to technical factors as the current exam is somewhat overpenetrated. No new pulmonary abnormality is seen. There is no evidence of pneumothorax or significant pleural fluid. IMPRESSION: 1. Interval insertion of a right jugular central venous catheter in satisfactory position. 2. Moderate ongoing bilateral interstitial pulmonary opacities.
[2017-02-14] MEDS ORDERED: NOREPINEPHRIN PREMIX 250 ML IV PRN (15:30)
[2017-02-14 16:16] LABS: HEMATOCRIT 37.4 % (36.0-47.0); HEMOGLOBIN 13.1 g/dL (12.0-15.5); RED BLOOD COUNT 3.87 x10^6/uL (3.50-5.40); RED CELL DISTRIBUTION WIDTH 13.5 % (11.5-14.5); WHITE BLOOD COUNT 24.5 x10^3/uL (4.0-11.0)
[2017-02-14 16:28] LABS: INR 2.5 (0.8-1.1); PROTHROMBIN TIME PATIENT 25.7 SEC (11.7-14.0)
[2017-02-14 16:48] LABS: CALCIUM 7.2 mg/dL (8.5-10.1); CREATININE 2.8 mg/dL (0.6-1.0); GFR 21.3; POTASSIUM 4.6 mmol/L (3.5-5.1)
[2017-02-14 16:53] LABS: MAGNESIUM 1.7 mg/dL (1.8-2.4); PHOSPHORUS 4.9 mg/dL (2.6-4.7)
[2017-02-14] MEDS ORDERED: ELECTROLYTE (ICU) PROTOCOL. MC PRN (17:00)
[2017-02-14] MEDS: methylPREDNISolone SOD SUCC PF 125 MG/2 ML VIAL. IV SCH ×2 (17:51→20:50)
[2017-02-15] VITALS (27 sets, daily range): BP systolic 83–138; BP diastolic 51–84
[2017-02-15] MEDS: IV DEXTROSE 5 %-0.2 % NACL 1,000 ML IV SCH ×2 (01:52→15:57)
[2017-02-15] MEDS: NOREPINEPHRIN PREMIX 250 ML IV PRN (01:52)
[2017-02-15] MEDS: PIPERACILLIN/TAZOBACTAM 3.375 GM in IV NORMAL SALINE 50ML 50 ML IV SCH (05:58)
[2017-02-15 06:17] LABS: ALBUMIN 1.8 g/dL (3.4-5.0); CALCIUM 6.9 mg/dL (8.5-10.1); CREATININE 3.4 mg/dL (0.6-1.0); PHOSPHORUS 4.7 mg/dL (2.6-4.7); POTASSIUM 4.6 mmol/L (3.5-5.1)
[2017-02-15 07:18] LABS: HCO3 ABG 17 mmol/L (21-28); PCO2 ABG 41 mmHg (35-46); PH ABG 7.25 (7.35-7.45); PO2 ABG 103 mmHg (75-108); SAT O2 ABG 97 % (92-99)
[2017-02-15 07:20] LABS: FIO2 ABG 40
--- NOTE | 2017-02-15 07:47 | RAD ---
Portable chest, 02/15/2017: History: Shortness of breath Comparison is made to a study from 02/14/2017. The ET tube tip lies well above the ernst. An NG tube extends into the proximal aspect of the stomach. A right jugular central venous catheter extends into the inferior aspect of the superior vena cava. The heart size is normal. The lungs are hyperexpanded compatible COPD. There are mild persistent interstitial opacities, right greater than left. The right chest opacities appear to have improved slightly since 02/12/2017. This likely represents pneumonia superimposed upon fibrosis. No new pulmonary abnormality is seen. Blunting of the lateral costophrenic angles is unchanged and probably due to scarring. IMPRESSION: Stable portable chest.
--- NOTE | 2017-02-15 08:16 | PDOC ---
CARDIOLOGY PROGRESS NOTE SUBJECTIVE: No acute events overnight. Still on vasopressors but lower dose. OBJECTIVE: Vital SIgns: Vital Signs Date Time Temp Pulse Resp B/P (MAP) Pulse Ox O2 Delivery O2 Flow Rate FiO2 02/15/17 07:11 100 Ventilator 02/15/17 05:45 103 26 102/70 (81) 02/15/17 04:00 98.6 98.6 Objective: Despite being off sedation for 24 hours, no significant neurologic response. Withdraws to pain. No spontaneous movements Normal heart tones. Lungs with diminshed air mvmt. abd soft, nt/nd. ext no edema. improved radial pulses. CURRENT MEDICATIONS: Meds reviewed. DIAGNOSTIC TESTING: CXR - no significant changes compared to prior. Still with persistent hyperinflation compatible with COPD ASSESSMENT: 1. Acute on chronic respiratory failure 2. Acute renal failure 3. 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 poor neurologic recovery Problems: PLAN: 1. Overall, although the patient has required less pressors, she has not had any meaningful clinical improvement 2. From a cardiac perspective, would recommend DNR status as repeat resuscitation would be futile. 3. Continue to taper pressors as tolerated and await neurologic and renal recovery. Supportive care from a cardiac standpoint. Not a candidate at this time for further interventions until final neurologic status determined. Consider hospice or palliative care if no meaningful neurologic recovery. KRISTIN COX MD Feb 15, 2017 08:16
[2017-02-15] MEDS ORDERED: AMINO AC 3%/ELECTROLYTE/GLYCER 1,000 ML IV SCH (08:45)
[2017-02-15] MEDS ORDERED: FUROSEMIDE 40 MG/4 ML VIAL. IVP ONE (08:45)
[2017-02-15] MEDS ORDERED: ALBUMIN HUMAN 25% 100 ML IV ONE (08:45)
--- NOTE | 2017-02-15 09:21 | PDOC ---
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 Off sedation since yesterday - no response Grimaces minimally on sternal rub NO family, there is DPOA? palliative on case with SW NEeds to be DNR albumin 1,8, hypotensive CA 6.9 - corrected is normal PLAN: Albumin 25 grms today COnt levophed Supportive care NO need to replace calcium (corrected is normal) Needs to be DNR Friday hopefully can get palliatve/SW to do DNR/hospice arranegments NEuro on board... 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 ) Extremities: No edema Skin: No breakdown, No significant lesion Labs LABS Laboratory Tests Test 02/14/17 12:52 02/14/17 16:00 02/14/17 19:30 02/15/17 00:01 Sodium Level 126 mmol/L (136-145) 127 mmol/L (136-145) 126 mmol/L (136-145) 125 mmol/L (136-145) Potassium Level 4.4 mmol/L (3.5-5.1) 4.6 mmol/L (3.5-5.1) Chloride Level 94 mmol/L (98-107) 94 mmol/L (98-107) Carbon Dioxide Level 20 mmol/L (21-32) 20 mmol/L (21-32) Anion Gap 12 (6-14) 13 (6-14) Blood Urea Nitrogen 40 mg/dL (7-20) 41 mg/dL (7-20) Creatinine 2.6 mg/dL (0.6-1.0) 2.8 mg/dL (0.6-1.0) Estimated GFR (Cockcroft-Gault) 23.2 21.3 Glucose Level 185 mg/dL (70-99) 123 mg/dL (70-99) Calcium Level 7.1 mg/dL (8.5-10.1) 7.2 mg/dL (8.5-10.1) Phosphorus Level 4.5 mg/dL (2.6-4.7) 4.9 mg/dL (2.6-4.7) Magnesium Level 1.7 mg/dL (1.8-2.4) 1.7 mg/dL (1.8-2.4) White Blood Count 24.5 x10^3/uL (4.0-11.0) Red Blood Count 3.87 x10^6/uL (3.50-5.40) Hemoglobin 13.1 g/dL (12.0-15.5) Hematocrit 37.4 % (36.0-47.0) Mean Corpuscular Volume 96 fL (79-100) Mean Corpuscular Hemoglobin 34 pg (25-35) Mean Corpuscular Hemoglobin Concent 35 g/dL (31-37) Red Cell Distribution Width 13.5 % (11.5-14.5) Platelet Count 175 x10^3/uL (140-400) Prothrombin Time 25.7 SEC (11.7-14.0) Prothromb Time International Ratio 2.5 (0.8-1.1) Activated Partial Thromboplast Time 37 SEC (24-38) Test 02/15/17 05:20 02/15/17 07:08 Sodium Level 124 mmol/L (136-145) Potassium Level 4.6 mmol/L (3.5-5.1) Chloride Level 92 mmol/L (98-107) Carbon Dioxide Level 18 mmol/L (21-32) Anion Gap 14 (6-14) Blood Urea Nitrogen 48 mg/dL (7-20) Creatinine 3.4 mg/dL (0.6-1.0) Estimated GFR (Cockcroft-Gault) 17.0 Glucose Level 153 mg/dL (70-99) Calcium Level 6.9 mg/dL (8.5-10.1) Phosphorus Level 4.7 mg/dL (2.6-4.7) Magnesium Level 1.8 mg/dL (1.8-2.4) Albumin 1.8 g/dL (3.4-5.0) O2 Saturation 97 % (92-99) Arterial Blood pH 7.25 (7.35-7.45) Arterial Blood pCO2 at Patient Temp 41 mmHg (35-46) Arterial Blood pO2 at Patient Temp 103 mmHg (75-108) Arterial Blood HCO3 17 mmol/L (21-28) Arterial Blood Base Excess -9 mmol/L (-3-3) FiO2 40 Review of Systems Review of Systems anoxic Assessment and Plan Assessmemt and Plan Problems Medical Problems: (1) Cardiac arrest Status: Acute (2) Elevated troponin Status: Acute (3) Hyperkalemia Status: Acute (4) Hypoglycemia Status: Acute (5) Hyponatremia Status: Acute Problems: Comment Review of Relevant I have reviewed the following items reji (where applicable) has been applied. Labs Laboratory Tests Test 02/13/17 12:45 02/13/17 14:05 02/13/17 16:00 02/13/17 18:40 Sodium Level 130 mmol/L (136-145) 130 mmol/L (136-145) 129 mmol/L (136-145) Potassium Level 4.1 mmol/L (3.5-5.1) 4.4 mmol/L (3.5-5.1) Chloride Level 96 mmol/L (98-107) 95 mmol/L (98-107) Carbon Dioxide Level 25 mmol/L (21-32) 23 mmol/L (21-32) Anion Gap 9 (6-14) 12 (6-14) Blood Urea Nitrogen 29 mg/dL (7-20) 30 mg/dL (7-20) Creatinine 1.5 mg/dL (0.6-1.0) 1.7 mg/dL (0.6-1.0) Estimated GFR (Cockcroft-Gault) 43.8 37.9 Glucose Level 92 mg/dL (70-99) 133 mg/dL (70-99) Calcium Level 7.6 mg/dL (8.5-10.1) 7.5 mg/dL (8.5-10.1) Phosphorus Level 3.7 mg/dL (2.6-4.7) 4.0 mg/dL (2.6-4.7) Magnesium Level 1.9 mg/dL (1.8-2.4) 2.0 mg/dL (1.8-2.4) Creatine Kinase 4039 U/L (26-192) White Blood Count 13.7 x10^3/uL (4.0-11.0) Red Blood Count 4.19 x10^6/uL (3.50-5.40) Hemoglobin 13.9 g/dL (12.0-15.5) Hematocrit 41.3 % (36.0-47.0) Mean Corpuscular Volume 99 fL (79-100) Mean Corpuscular Hemoglobin 33 pg (25-35) Mean Corpuscular Hemoglobin Concent 34 g/dL (31-37) Red Cell Distribution Width 12.7 % (11.5-14.5) Platelet Count 188 x10^3/uL (140-400) Prothrombin Time 27.9 SEC (11.7-14.0) Prothromb Time International Ratio 2.8 (0.8-1.1) Activated Partial Thromboplast Time 40 SEC (24-38) Heparin Anti-Xa Act, Unfractionated 0.10 IU/mL (0.30-0.70) Test 02/13/17 20:30 02/13/17 21:50 02/14/17 00:01 02/14/17 01:55 Sodium Level 129 mmol/L (136-145) 127 mmol/L (136-145) Potassium Level 4.0 mmol/L (3.5-5.1) 4.3 mmol/L (3.5-5.1) Chloride Level 93 mmol/L (98-107) 93 mmol/L (98-107) Carbon Dioxide Level 23 mmol/L (21-32) 23 mmol/L (21-32) Anion Gap 13 (6-14) 11 (6-14) Blood Urea Nitrogen 34 mg/dL (7-20) 34 mg/dL (7-20) Creatinine 1.8 mg/dL (0.6-1.0) 2.1 mg/dL (0.6-1.0) Estimated GFR (Cockcroft-Gault) 35.5 29.7 Glucose Level 165 mg/dL (70-99) 174 mg/dL (70-99) Calcium Level 7.6 mg/dL (8.5-10.1) 7.5 mg/dL (8.5-10.1) Phosphorus Level 4.2 mg/dL (2.6-4.7) 4.3 mg/dL (2.6-4.7) Magnesium Level 1.9 mg/dL (1.8-2.4) 1.9 mg/dL (1.8-2.4) White Blood Count 18.9 x10^3/uL (4.0-11.0) Red Blood Count 4.03 x10^6/uL (3.50-5.40) Hemoglobin 13.5 g/dL (12.0-15.5) Hematocrit 39.6 % (36.0-47.0) Mean Corpuscular Volume 98 fL (79-100) Mean Corpuscular Hemoglobin 34 pg (25-35) Mean Corpuscular Hemoglobin Concent 34 g/dL (31-37) Red Cell Distribution Width 13.0 % (11.5-14.5) Platelet Count 168 x10^3/uL (140-400) Prothrombin Time 30.7 SEC (11.7-14.0) Prothromb Time International Ratio 3.2 (0.8-1.1) Activated Partial Thromboplast Time > 150 SEC (24-38) Heparin Anti-Xa Act, Unfractionated 0.28 IU/mL (0.30-0.70) Test 02/14/17 03:45 02/14/17 05:25 02/14/17 07:30 02/14/17 08:35 Sodium Level 128 mmol/L (136-145) 128 mmol/L (136-145) Potassium Level 4.2 mmol/L (3.5-5.1) 4.3 mmol/L (3.5-5.1) Chloride Level 93 mmol/L (98-107) 94 mmol/L (98-107) Carbon Dioxide Level 23 mmol/L (21-32) 21 mmol/L (21-32) Anion Gap 12 (6-14) 13 (6-14) Blood Urea Nitrogen 36 mg/dL (7-20) 37 mg/dL (7-20) Creatinine 2.2 mg/dL (0.6-1.0) 2.2 mg/dL (0.6-1.0) Estimated GFR (Cockcroft-Gault) 28.1 28.1 Glucose Level 148 mg/dL (70-99) 144 mg/dL (70-99) Calcium Level 7.6 mg/dL (8.5-10.1) 7.0 mg/dL (8.5-10.1) Phosphorus Level 4.6 mg/dL (2.6-4.7) 4.6 mg/dL (2.6-4.7) Magnesium Level 1.8 mg/dL (1.8-2.4) 1.8 mg/dL (1.8-2.4) White Blood Count 22.4 x10^3/uL (4.0-11.0) Red Blood Count 3.95 x10^6/uL (3.50-5.40) Hemoglobin 13.3 g/dL (12.0-15.5) Hematocrit 38.4 % (36.0-47.0) Mean Corpuscular Volume 97 fL (79-100) Mean Corpuscular Hemoglobin 34 pg (25-35) Mean Corpuscular Hemoglobin Concent 35 g/dL (31-37) Red Cell Distribution Width 13.4 % (11.5-14.5) Platelet Count 174 x10^3/uL (140-400) Prothrombin Time 30.3 SEC (11.7-14.0) Prothromb Time International Ratio 3.1 (0.8-1.1) Activated Partial Thromboplast Time > 150 SEC (24-38) Lactic Acid Level 2.0 mmol/L (0.4-2.0) Albumin 1.8 g/dL (3.4-5.0) O2 Saturation 96 % (92-99) Arterial Blood pH 7.24 (7.35-7.45) Arterial Blood pCO2 at Patient Temp 40 mmHg (35-46) Arterial Blood pO2 at Patient Temp 93 mmHg (75-108) Arterial Blood HCO3 17 mmol/L (21-28) Arterial Blood Base Excess -10 mmol/L (-3-3) FiO2 40 Heparin Anti-Xa Act, Unfractionated 0.24 IU/mL (0.30-0.70) Test 02/14/17 08:55 02/14/17 12:52 02/14/17 16:00 02/14/17 19:30 Sodium Level 127 mmol/L (136-145) 126 mmol/L (136-145) 127 mmol/L (136-145) 126 mmol/L (136-145) Potassium Level 4.3 mmol/L (3.5-5.1) 4.4 mmol/L (3.5-5.1) 4.6 mmol/L (3.5-5.1) Chloride Level 94 mmol/L (98-107) 94 mmol/L (98-107) 94 mmol/L (98-107) Carbon Dioxide Level 20 mmol/L (21-32) 20 mmol/L (21-32) 20 mmol/L (21-32) Anion Gap 13 (6-14) 12 (6-14) 13 (6-14) Blood Urea Nitrogen 38 mg/dL (7-20) 40 mg/dL (7-20) 41 mg/dL (7-20) Creatinine 2.4 mg/dL (0.6-1.0) 2.6 mg/dL (0.6-1.0) 2.8 mg/dL (0.6-1.0) Estimated GFR (Cockcroft-Gault) 25.5 23.2 21.3 Glucose Level 130 mg/dL (70-99) 185 mg/dL (70-99) 123 mg/dL (70-99) Calcium Level 7.4 mg/dL (8.5-10.1) 7.1 mg/dL (8.5-10.1) 7.2 mg/dL (8.5-10.1) Phosphorus Level 4.4 mg/dL (2.6-4.7) 4.5 mg/dL (2.6-4.7) 4.9 mg/dL (2.6-4.7) Magnesium Level 1.9 mg/dL (1.8-2.4) 1.7 mg/dL (1.8-2.4) 1.7 mg/dL (1.8-2.4) White Blood Count 24.5 x10^3/uL (4.0-11.0) Red Blood Count 3.87 x10^6/uL (3.50-5.40) Hemoglobin 13.1 g/dL (12.0-15.5) Hematocrit 37.4 % (36.0-47.0) Mean Corpuscular Volume 96 fL (79-100) Mean Corpuscular Hemoglobin 34 pg (25-35) Mean Corpuscular Hemoglobin Concent 35 g/dL (31-37) Red Cell Distribution Width 13.5 % (11.5-14.5) Platelet Count 175 x10^3/uL (140-400) Prothrombin Time 25.7 SEC (11.7-14.0) Prothromb Time International Ratio 2.5 (0.8-1.1) Activated Partial Thromboplast Time 37 SEC (24-38) Test 02/15/17 00:01 02/15/17 05:20 02/15/17 07:08 Sodium Level 125 mmol/L (136-145) 124 mmol/L (136-145) Potassium Level 4.6 mmol/L (3.5-5.1) Chloride Level 92 mmol/L (98-107) Carbon Dioxide Level 18 mmol/L (21-32) Anion Gap 14 (6-14) Blood Urea Nitrogen 48 mg/dL (7-20) Creatinine 3.4 mg/dL (0.6-1.0) Estimated GFR (Cockcroft-Gault) 17.0 Glucose Level 153 mg/dL (70-99) Calcium Level 6.9 mg/dL (8.5-10.1) Phosphorus Level 4.7 mg/dL (2.6-4.7) Magnesium Level 1.8 mg/dL (1.8-2.4) Albumin 1.8 g/dL (3.4-5.0) O2 Saturation 97 % (92-99) Arterial Blood pH 7.25 (7.35-7.45) Arterial Blood pCO2 at Patient Temp 41 mmHg (35-46) Arterial Blood pO2 at Patient Temp 103 mmHg (75-108) Arterial Blood HCO3 17 mmol/L (21-28) Arterial Blood Base Excess -9 mmol/L (-3-3) FiO2 40 Laboratory Tests Test 02/14/17 12:52 02/14/17 16:00 02/14/17 19:30 02/15/17 00:01 Sodium Level 126 mmol/L (136-145) 127 mmol/L (136-145) 126 mmol/L (136-145) 125 mmol/L (136-145) Potassium Level 4.4 mmol/L (3.5-5.1) 4.6 mmol/L (3.5-5.1) Chloride Level 94 mmol/L (98-107) 94 mmol/L (98-107) Carbon Dioxide Level 20 mmol/L (21-32) 20 mmol/L (21-32) Anion Gap 12 (6-14) 13 (6-14) Blood Urea Nitrogen 40 mg/dL (7-20) 41 mg/dL (7-20) Creatinine 2.6 mg/dL (0.6-1.0) 2.8 mg/dL (0.6-1.0) Estimated GFR (Cockcroft-Gault) 23.2 21.3 Glucose Level 185 mg/dL (70-99) 123 mg/dL (70-99) Calcium Level 7.1 mg/dL (8.5-10.1) 7.2 mg/dL (8.5-10.1) Phosphorus Level 4.5 mg/dL (2.6-4.7) 4.9 mg/dL (2.6-4.7) Magnesium Level 1.7 mg/dL (1.8-2.4) 1.7 mg/dL (1.8-2.4) White Blood Count 24.5 x10^3/uL (4.0-11.0) Red Blood Count 3.87 x10^6/uL (3.50-5.40) Hemoglobin 13.1 g/dL (12.0-15.5) Hematocrit 37.4 % (36.0-47.0) Mean Corpuscular Volume 96 fL (79-100) Mean Corpuscular Hemoglobin 34 pg (25-35) Mean Corpuscular Hemoglobin Concent 35 g/dL (31-37) Red Cell Distribution Width 13.5 % (11.5-14.5) Platelet Count 175 x10^3/uL (140-400) Prothrombin Time 25.7 SEC (11.7-14.0) Prothromb Time International Ratio 2.5 (0.8-1.1) Activated Partial Thromboplast Time 37 SEC (24-38) Test 02/15/17 05:20 02/15/17 07:08 Sodium Level 124 mmol/L (136-145) Potassium Level 4.6 mmol/L (3.5-5.1) Chloride Level 92 mmol/L (98-107) Carbon Dioxide Level 18 mmol/L (21-32) Anion Gap 14 (6-14) Blood Urea Nitrogen 48 mg/dL (7-20) Creatinine 3.4 mg/dL (0.6-1.0) Estimated GFR (Cockcroft-Gault) 17.0 Glucose Level 153 mg/dL (70-99) Calcium Level 6.9 mg/dL (8.5-10.1) Phosphorus Level 4.7 mg/dL (2.6-4.7) Magnesium Level 1.8 mg/dL (1.8-2.4) Albumin 1.8 g/dL (3.4-5.0) O2 Saturation 97 % (92-99) Arterial Blood pH 7.25 (7.35-7.45) Arterial Blood pCO2 at Patient Temp 41 mmHg (35-46) Arterial Blood pO2 at Patient Temp 103 mmHg (75-108) Arterial Blood HCO3 17 mmol/L (21-28) Arterial Blood Base Excess -9 mmol/L (-3-3) FiO2 40 Microbiology 02/12/17 Blood Culture - Preliminary, Resulted 02/12/17 Blood Culture Result 1 (ELIZABETH) - Preliminary, Resulted 02/12/17 Urine Culture - Preliminary, Resulted 02/12/17 Urine Culture Result 1 (ELIZABETH) - Preliminary, Resulted Medications Current Medications Calcium Chloride 1,000 mg 1X ONCE IV Last administered on 02/12/17 15:35; Start 02/12/17 at 16:00; Stop 02/12/17 at 16:35; Status DC Dextrose (Dextrose 50%-Water Syringe) 25 gm 1X ONCE IV Last administered on 15:33; Start 02/12/17 at 16:00; Stop 02/12/17 at 16:35; Status DC Sodium Bicarbonate 50 meq 1X ONCE IV Last administered on 02/12/17 15:35; Start 02/12/17 at 16:00; Stop 02/12/17 at 16:35; Status DC Furosemide (Lasix) 40 mg 1X ONCE IVP Last administered on 02/12/17 16:42; Start 02/12/17 at 16:30; Stop 02/12/17 at 16:35; Status DC Sodium Chloride 1,000 ml @ 1,000 mls/hr Q1H IV Last administered on 02/12/17 15:50; Start 02/12/17 at 16:57; Stop 02/13/17 at 07:23; Status DC Fentanyl Citrate (Fentanyl 2ml Vial) 25 mcg PRN Q30MIN PRN IV SED; Start at 17:00 Lorazepam (Ativan) 1 mg PRN Q30MIN PRN IV SEDATION; Start 02/12/17 at 17:00 Fentanyl Citrate 30 ml @ 2.5 mls/hr CONT PRN PRN IV IVF Last administered on 03:27; Start 02/12/17 at 17:00 Propofol 100 ml @ 0 mls/hr CONT PRN IV SEE I/O RECORD; Start 02/12/17 at 17:00 Vecuronium [place] (Norcuron Bolus) DOSE AT 0.1 mg/kg PRN Q30MIN PRN IV SHIVERING Last administered on 02/12/17 19:46; Start 02/12/17 at 17:00; Stop 02/13 at 11:01; Status DC Meperidine HCl (Demerol) 12.5 mg PRN Q30MIN PRN IV SHIVERING; Start 02/12/17 at 17:00 Multi-Ingred Cream/Lotion/Oil/ Oint (Artificial Tears Eye Oint) 1 silvestre PRN Q6HRS PRN OU 0.5 INCH FOR DRY EYE; Start 02/12/17 at 17:00 Famotidine (Pepcid) 20 mg BID IVP Last administered on 02/14/17 10:47; Start at 09:00; Stop 02/14/17 at 16:23; Status DC Aspirin (Aspirin) 300 mg DAILY [place] Last administered on 02/14/17 10:47; Start at 09:00 Sodium Chloride (Normal Saline Flush) 3 ml QSHIFT PRN IV AFTER MEDS AND BLOOD DRAWS; Start 02/12/17 at 17:00 Acetaminophen (Tylenol) 650 mg Q6HRS NG Last administered on 02/13/17 05:51; Start 02/12/17 at 18:00; Stop 02/13/17 at 17:59; Status DC Acetaminophen (Acetaminophen Supp) 650 mg PRN Q6HRS PRN OH MILD PAIN / TEMP; Start 02/13/17 at 17:00 Acetaminophen (Tylenol) 650 mg PRN Q6HRS PRN NG MILD PAIN / TEMP; Start at 17:00 Info 1 ea DAILY PRN MC PER PROTOCOL; Start 02/14/17 at 17:00 Sodium Chloride 500 ml @ 500 mls/hr 1X ONCE IV Last administered on 02/12/17 16:30; Start 02/12/17 at 17:15; Stop 02/12/17 at 18:14; Status DC Sodium Chloride 500 ml @ 500 mls/hr 1X ONCE IV Last administered on 02/12/17 16:50; Start 02/12/17 at 17:15; Stop 02/12/17 at 18:14; Status DC Sodium Chloride 1,000 ml @ 100 mls/hr Q10H IV Last administered on 02/13/17 06 :36; Start 02/12/17 at 19:00; Stop 02/13/17 at 10:51; Status DC Famotidine (Pepcid) 20 mg 1X ONCE PO Last administered on 02/12/17 19:57; Start 02/12/17 at 17:30; Stop 02/12/17 at 17:34; Status DC Methylprednisolone Sodium Succinate (SOLU-Medrol 40MG VIAL) 100 mg TID IV Last administered on 02/14/17 11:01; Start 02/12/17 at 18:00; Stop 02/14/17 at 12:00; Status DC Sodium Chloride 1,000 ml @ 1,000 mls/hr 1X ONCE IV Last administered on 19:31; Start 02/12/17 at 18:15; Stop 02/12/17 at 19:14; Status DC Piperacillin Sod/ Tazobactam Sod (Zosyn Per Pharmacy) 1 each PRN DAILY PRN MC SEE COMMENTS; Start 02/12/17 at 19:15 Vancomycin HCl (Vanco Per Pharmacy) 1 each PRN DAILY PRN MC SEE COMMENTS Last administered on 02/13/17 16:50; Start 02/12/17 at 19:15; Stop 02/14/17 at 07:57; Status DC Piperacillin Sod/ Tazobactam Sod 3.375 gm/Sodium Chloride 50 ml @ 100 mls/hr Q6HRS IV Last administered on 02/15/17 05:58; Start 02/12/17 at 19:30 Vancomycin HCl 1 gm/Sodium Chloride 250 ml @ 250 mls/hr 1X ONCE IV Last administered on 02/12/17 20:00; Start 02/12/17 at 19:30; Stop 02/12/17 at 20:29; Status DC Sodium Bicarbonate 50 meq 1X ONCE IV Last administered on 02/12/17 19:59; Start 02/12/17 at 19:30; Stop 02/12/17 at 19:31; Status DC Norepinephrine Bitartrate 250 ml @ 0 mls/hr CONT PRN IV SEE I/O RECORD Last administered on 02/15/17 01:52; Start 02/12/17 at 19:30 Norepinephrine Bitartrate 250 ml @ As Directed STK-MED ONCE IV ; Start 02/12/17 at 19:25; Stop 02/12/17 at 19:26; Status DC Vancomycin HCl 750 mg/Sodium Chloride 250 ml @ 250 mls/hr Q24H IV Last administered on 02/13/17 20:34; Start 02/13/17 at 20:00; Stop 02/14/17 at 07:57; Status DC Vancomycin HCl 1 each 1X ONCE MC ; Start 02/14/17 at 19:30; Stop 02/14/17 at 19: 31; Status Cancel Sodium Chloride 1,000 ml @ 1,000 mls/hr 1X ONCE IV Last administered on 05:05; Start 02/13/17 at 04:45; Stop 02/13/17 at 05:44; Status DC Sodium Chloride 1,000 ml @ 1,000 mls/hr 1X ONCE IV Last administered on 05:35; Start 02/13/17 at 05:30; Stop 02/13/17 at 06:29; Status DC Magnesium Sulfate/ Dextrose 50 ml @ 25 mls/hr PRN DAILY PRN IV for Mag < 1.7 on am labs; Start 02/13/17 at 10:45 Dextrose/Sodium Chloride 1,000 ml @ 75 mls/hr [id number] IV Last administered on 02/15/17 01:52; Start 02/13/17 at 11:00; Stop 02/15/17 at 08:52; Status DC Vecuronium [place] (Norcuron Bolus) 5 mg PRN Q30MIN PRN IV SHIVERING; Start 02/13/17 at 11:15 Lidocaine/Sodium Bicarbonate (Buffered Lidocaine 1%) 3 ml 1X ONCE IJ Last administered on 02/13/17 11:40; Start 02/13/17 at 11:15; Stop 02/13/17 at 11:26; Status DC Heparin Sodium/ Sodium Chloride 60 unit 1X ONCE IV Last administered on 11:40; Start 02/13/17 at 11:15; Stop 02/13/17 at 11:26; Status DC Lidocaine/Sodium Bicarbonate (Buffered Lidocaine 1%) 20 ml STK-MED ONCE IJ ; Start 02/13/17 at 11:22; Stop 02/13/17 at 11:29; Status DC Heparin Sodium (Porcine) (Heparin Sodium) 2,075 unit 1X ONCE IV Last administered on 02/13/17 12:45; Start 02/13/17 at 11:45; Stop 02/13/17 at 11:56; Status DC Heparin Sodium/ Dextrose 500 ml @ 16.5 mls/hr CONT PRN IV SEE I/O RECORD Last administered on 02/13/17 12:47; Start 02/13/17 at 11:45; Stop 02/14/17 at 13:53; Status DC Heparin Sodium (Porcine) (Heparin Sodium) 1,550 unit PRN Q6HRS PRN IV FOR UFH LEVEL LESS THAN 0.2 Last administered on 02/13/17 20:22; Start 02/13/17 at 11:45 ; Stop 02/14/17 at 13:53; Status DC Heparin Sodium (Porcine) (Heparin Sodium) 800 unit PRN Q6HRS PRN IV FOR UFH LEVEL 0.2 - 0.29 Last administered on 02/14/17 02:34; Start 02/13/17 at 11:45; Stop 02/14/17 at 13:53; Status DC Warfarin Sodium (Coumadin Per Pharmacy) 1 each PRN DAILY PRN MC PER PROTOCOL; Start 02/13/17 at 11:45; Status Cancel Info (Anti-Coagulation Monitoring By Pharmacy) 1 each PRN DAILY PRN MC SEE COMMENTS; Start 02/13/17 at 13:00; Stop 02/14/17 at 16:28; Status DC Calcium Chloride 1,000 mg STK-MED ONCE IV ; Start 02/12/17 at 10:00; Stop at 16:27; Status DC Epinephrine HCl (EPINEPHrine SYRINGE) 1 mg STK-MED ONCE .ROUTE ; Start 02/12/17 at 10:00; Stop 02/13/17 at 16:27; Status DC Dextrose (Dextrose 50%-Water Syringe) 25 gm STK-MED ONCE IV ; Start 02/12/17 at 10:00; Stop 02/13/17 at 16:27; Status DC Sodium Bicarbonate 50 meq STK-MED ONCE .ROUTE ; Start 02/12/17 at 10:00; Stop 02/13/17 at 16:27; Status DC Methylprednisolone Sodium Succinate (SOLU-Medrol 125MG VIAL) 100 mg TID IV Last administered on 02/14/17t 20:50; Start 02/14/17 at 18:00 Norepinephrine Bitartrate 250 ml @ 0 mls/hr CONT PRN IV SEE I/O RECORD; Start 02/14/17 at 15:30; Status Cancel Famotidine (Pepcid) 20 mg DAILY IVP ; Start 02/15/17 at 09:00 Amino Acids/ Glycerin/ Electrolytes 1,000 ml @ 80 mls/hr [id number] IV ; Start 02/15/17 at 08:45 Albumin Human 100 ml @ 100 mls/hr 1X ONCE IV ; Start 02/15/17 at 08:45; Stop at 09:44 Furosemide (Lasix) 40 mg 1X ONCE IVP ; Start 02/15/17 at 08:45; Stop 02/15/17 at 08:53; Status DC Active Scripts Active Reported Latuda (Lurasidone Hcl) 20 Mg Tablet 20 Mg PO AFTRNOON Remeron (Mirtazapine) 15 Mg Tablet 1 Tab PO QHS Oxybutynin Chloride Er (Oxybutynin Chloride) 10 Mg Tab.er.24 1 Tab PO DAILY Multivitamins (Multivitamin) 1 Each Tablet 1 Tab PO DAILY Latuda (Lurasidone Hcl) 20 Mg Tablet 10 Mg PO AFTRNOON Lorazepam 0.5 Mg Tablet 1 Tab PO QEVNG Duoneb 0.5-3(2.5) Mg/3 Ml (Albuterol/Ipratropium) 3 Ml Ampul.neb 3 Ml NEB BID Duoneb 0.5-3(2.5) Mg/3 Ml (Albuterol/Ipratropium) 3 Ml Ampul.neb 3 Ml NEB Q4H PRN Calcium Carbonate 500 Mg Tablet 1,000 Mg PO Q4HRS PRN Nicotine Gum (Nicotine Polacrilex) 4 Mg Gum 4 Mg BC Milk Of Magnesia (Magnesium Hydroxide) 400 Mg/5 Ml Oral.susp 400 Mg PO Q3DAYS PRN Milk Of Magnesia (Magnesium Hydroxide) 400 Mg/5 Ml Oral.susp 400 Mg PO Q3DAYS PRN Lorazepam 1 Mg Tablet 1 Tab PO Q12HR PRN Ibuprofen 400 Mg Tablet 200 Mg PO Q8HRS PRN Cough Drops (Eucalyptus Oil/Menthol) 7 Mg Lozenge 7 Mg MM Q4HRS PRN Tylenol (Acetaminophen) 325 Mg Tablet 650 Mg PO Q4HRS PRN Lovaza ([place]-3 Acid Ethyl Esters) 1 Gm Capsule 1 Cap PO QID Gabapentin 400 Mg Capsule 400 Mg PO QID Lorazepam 1 Mg Tablet 1 Tab PO BID Latuda (Lurasidone Hcl) 60 Mg Tablet 60 Mg PO BID Advair 100-50 Diskus (Fluticasone/Salmeterol) 1 Each Disk.w.dev 1 Puff IH BID Acetaminophen 325 Mg Capsule 650 Mg PO BID Vitamin D (Cholecalciferol (Vitamin D3)) 2,000 Unit Capsule 800 Unit PO DAILY Vitals/I & O Vital Sign - Last 24 Hours 02/14/17 02/14/17 02/14/17 02/14/17 09:30 10:00 11:00 11:36 Pulse 120 118 Resp 26 26 B/P (MAP) 119/70 (86) 126/68 (87) Pulse Ox 100 98 99 100 O2 Delivery Ventilator Ventilator Ventilator Ventilator 02/14/17 02/14/17 02/14/17 02/14/17 12:00 12:00 13:00 13:35 Temp 99.3 99.3 Pulse 120 122 Resp B/P (MAP) 102/77 (85) Pulse Ox 99 98 99 O2 Delivery Ventilator Mechanical Ventilator Ventilator Ventilator 02/14/17 02/14/17 02/14/17 02/14/17 14:00 15:00 16:00 16:00 Temp 99.0 99.0 Pulse 120 116 126 Resp B/P (MAP) 133/83 (100) Pulse Ox 98 98 98 O2 Delivery Ventilator Ventilator Mechanical Ventilator Ventilator 02/14/17 02/14/17 02/14/17 02/14/17 16:21 17:00 17:30 18:00 Pulse 124 126 122 Resp B/P (MAP) 112/44 (66) 96/42 (60) 104/56 (72) Pulse Ox 99 97 99 O2 Delivery Ventilator Ventilator Ventilator 02/14/17 02/14/17 02/14/17 02/14/17 19:00 19:42 20:02 20:05 Temp 98.8 98.8 Pulse 108 115 115 Resp B/P (MAP) 126/87 (100) 117/80 (92) 117/80 (92) Pulse Ox 100 100 100 O2 Delivery Ventilator Ventilator Ventilator 02/14/17 02/14/17 02/14/17 02/14/17 20:09 21:00 22:00 23:00 Pulse 115 114 113 Resp B/P (MAP) 103/74 (84) 114/81 (92) 127/89 (102) Pulse Ox 100 100 100 O2 Delivery Mechanical Ventilator Ventilator Ventilator Ventilator 02/14/17 02/14/17 02/15/17 02/15/17 23:00 23:45 00:00 00:00 Pulse 114 113 114 Resp B/P (MAP) 126/88 (101) 104/74 (84) 105/76 (86) Pulse Ox 100 100 100 O2 Delivery Ventilator Ventilator Ventilator 02/15/17 02/15/17 02/15/17 02/15/17 00:00 01:00 01:00 01:15 Temp 99.0 99.0 Pulse 109 106 Resp B/P (MAP) 114/80 (91) 98/73 (81) Pulse Ox 100 100 100 O2 Delivery Mechanical Ventilator Ventilator Ventilator Ventilator 02/15/17 02/15/17 02/15/17 02/15/17 02:00 03:00 03:25 04:00 Temp 98.6 98.6 Pulse 104 108 108 Resp 26 B/P (MAP) 100/72 (81) 106/70 (82) 100/75 (83) Pulse Ox 100 100 100 100 O2 Delivery Ventilator Ventilator Ventilator Ventilator 02/15/17 02/15/17 02/15/17 02/15/17 04:00 04:00 05:00 05:30 Pulse 108 105 103 Resp B/P (MAP) 100/75 (83) 107/84 (92) 138/78 (98) Pulse Ox 100 100 O2 Delivery Mechanical Ventilator Ventilator Ventilator 02/15/17 02/15/17 02/15/17 02/15/17 05:45 05:45 07:00 07:00 Temp 97.6 97.6 Pulse 103 100 100 Resp B/P (MAP) 102/70 (81) 101/71 (81) 114/71 (85) Pulse Ox 100 100 99 O2 Delivery Ventilator Ventilator Ventilator 02/15/17 02/15/17 02/15/17 02/15/17 07:11 08:35 08:43 08:58 Temp 97.9 97.9 Pulse 101 Resp B/P (MAP) 110/68 (82) 110/74 (86) Pulse Ox 100 99 100 O2 Delivery Ventilator Ventilator Ventilator Intake and Output 02/15/17 02/15/17 02/16/17 15:00 23:00 07:00 Output Total 10 ml Balance -10 ml BERONICA VILLATORO MD Feb 15, 2017 09:21
[2017-02-15] MEDS: ASPIRIN 300 MG SUPP.RECT PR SCH (09:30)
[2017-02-15] MEDS: FAMOTIDINE 20 MG/2 ML VIAL IVP SCH (09:31)
[2017-02-15] MEDS: methylPREDNISolone SOD SUCC PF 125 MG/2 ML VIAL. IV SCH ×3 (09:31→21:42)
--- NOTE | 2017-02-15 09:43 | PDOC ---
Infectious Disease Note Subjective Subjective Off sedation since yesterday Intubated/vent. FiO2 40% Hypotension, Levophed 10 mcg Decrease UO No fever ROS ROS Unobtainable Vital Sign Vital Signs Vital Signs Date Time Temp Pulse Resp B/P (MAP) Pulse Ox O2 Delivery O2 Flow Rate FiO2 02/15/17 08:58 100 Ventilator 02/15/17 08:43 110/74 (86) 02/15/17 08:35 97.9 101 26 97.9 Physical Exam PHYSICAL EXAM GENERAL: Intubated HEENT: Pupils equally round, OGT, ETT LUNGS: Clear HEART: S1S2, regular ABD: Soft : Velazquez EXT: No edema, no cyanosis; Hola hose, bilat BLUEPRINTER: Unresponsive verbal/tactile stimuli SKIN: No rash RIJ. (02/13). clean Labs Lab Laboratory Tests Test 02/14/17 12:52 02/14/17 16:00 02/14/17 19:30 02/15/17 00:01 Sodium Level 126 mmol/L (136-145) 127 mmol/L (136-145) 126 mmol/L (136-145) 125 mmol/L (136-145) Potassium Level 4.4 mmol/L (3.5-5.1) 4.6 mmol/L (3.5-5.1) Chloride Level 94 mmol/L (98-107) 94 mmol/L (98-107) Carbon Dioxide Level 20 mmol/L (21-32) 20 mmol/L (21-32) Anion Gap 12 (6-14) 13 (6-14) Blood Urea Nitrogen 40 mg/dL (7-20) 41 mg/dL (7-20) Creatinine 2.6 mg/dL (0.6-1.0) 2.8 mg/dL (0.6-1.0) Estimated GFR (Cockcroft-Gault) 23.2 21.3 Glucose Level 185 mg/dL (70-99) 123 mg/dL (70-99) Calcium Level 7.1 mg/dL (8.5-10.1) 7.2 mg/dL (8.5-10.1) Phosphorus Level 4.5 mg/dL (2.6-4.7) 4.9 mg/dL (2.6-4.7) Magnesium Level 1.7 mg/dL (1.8-2.4) 1.7 mg/dL (1.8-2.4) White Blood Count 24.5 x10^3/uL (4.0-11.0) Red Blood Count 3.87 x10^6/uL (3.50-5.40) Hemoglobin 13.1 g/dL (12.0-15.5) Hematocrit 37.4 % (36.0-47.0) Mean Corpuscular Volume 96 fL (79-100) Mean Corpuscular Hemoglobin 34 pg (25-35) Mean Corpuscular Hemoglobin Concent 35 g/dL (31-37) Red Cell Distribution Width 13.5 % (11.5-14.5) Platelet Count 175 x10^3/uL (140-400) Prothrombin Time 25.7 SEC (11.7-14.0) Prothromb Time International Ratio 2.5 (0.8-1.1) Activated Partial Thromboplast Time 37 SEC (24-38) Test 02/15/17 05:20 02/15/17 07:08 Sodium Level 124 mmol/L (136-145) Potassium Level 4.6 mmol/L (3.5-5.1) Chloride Level 92 mmol/L (98-107) Carbon Dioxide Level 18 mmol/L (21-32) Anion Gap 14 (6-14) Blood Urea Nitrogen 48 mg/dL (7-20) Creatinine 3.4 mg/dL (0.6-1.0) Estimated GFR (Cockcroft-Gault) 17.0 Glucose Level 153 mg/dL (70-99) Calcium Level 6.9 mg/dL (8.5-10.1) Phosphorus Level 4.7 mg/dL (2.6-4.7) Magnesium Level 1.8 mg/dL (1.8-2.4) Albumin 1.8 g/dL (3.4-5.0) O2 Saturation 97 % (92-99) Arterial Blood pH 7.25 (7.35-7.45) Arterial Blood pCO2 at Patient Temp 41 mmHg (35-46) Arterial Blood pO2 at Patient Temp 103 mmHg (75-108) Arterial Blood HCO3 17 mmol/L (21-28) Arterial Blood Base Excess -9 mmol/L (-3-3) FiO2 40 TTE <Conclusion> Left ventricle systolic function is low normal. The Ejection Fraction is 50%. Flattening of interventricular septum consistent right ventricle pressure/ volume overload. The right ventricle is enlarged. Mild mitral regurgitation. Mild tricuspid regurgitation. The PA pressure was estimated at 43 mmHg. There is no evidence of significant pericardial effusion. Micro BLD CULT RESULT 1 Preliminary Staphylococcus aureus Recovered from pediatric bottle only. GROWTH IN 1 OF 2 SETS PRESUMPTIVE MRSA, SUSCEPTIBILITY TO FOLLOW Objective Assessment Staph aureus sepsis/bacteremia, POA. 02/12. Presumptive MRSA -TTE no evidence veg; S/P Cardiac arrest Respiratory failure COPD Leukocytosis, trending up, on steroids DARYA - worse Schizophrenia MRSA nares positive Plan Plan of Care cont Zosyn, dose adjusted for renal function, d/w pharmacy Last dose vanc 02/13 8pm Await final susceptibilities Repeat BC With worsening Renal failure - dose Dapto D/w RN Critically ill Attending Co-Sign Attending Co-Sign The patient was seen and interviewed as well as examined at the bedside. The chart was reviewed. The case was discussed. Agree with the plan of care. SIRIA CARPENTER APRN Feb 15, 2017 09:43 JAVIER HUGHES MD Feb 15, 2017 11:10
--- NOTE | 2017-02-15 10:58 | PDOC ---
PULMONARY PROGRESS NOTES Subjective REMAINS INTUBATED/ OFF NARCOTICS/ SEDATIVES, DOES NOT RESPOND LOW DOSE LEVO NO SPONT RESPIRATIONS DOES HAVE GAG NO U/O Vitals Vital Signs Date Time Temp Pulse Resp B/P (MAP) Pulse Ox O2 Delivery O2 Flow Rate FiO2 02/15/17 10:23 113/70 (84) 02/15/17 09:42 100 02/15/17 08:58 100 Ventilator 02/15/17 08:35 97.9 26 97.9 Lungs: Other (decrease bs) Cardiovascular: S1 Abdomen: Soft Extremities: Other (cold , decrease pulses) Labs Laboratory Tests Test 02/13/17 12:45 02/13/17 14:05 02/13/17 16:00 02/13/17 18:40 Sodium Level 130 mmol/L (136-145) 130 mmol/L (136-145) 129 mmol/L (136-145) Potassium Level 4.1 mmol/L (3.5-5.1) 4.4 mmol/L (3.5-5.1) Chloride Level 96 mmol/L (98-107) 95 mmol/L (98-107) Carbon Dioxide Level 25 mmol/L (21-32) 23 mmol/L (21-32) Anion Gap 9 (6-14) 12 (6-14) Blood Urea Nitrogen 29 mg/dL (7-20) 30 mg/dL (7-20) Creatinine 1.5 mg/dL (0.6-1.0) 1.7 mg/dL (0.6-1.0) Estimated GFR (Cockcroft-Gault) 43.8 37.9 Glucose Level 92 mg/dL (70-99) 133 mg/dL (70-99) Calcium Level 7.6 mg/dL (8.5-10.1) 7.5 mg/dL (8.5-10.1) Phosphorus Level 3.7 mg/dL (2.6-4.7) 4.0 mg/dL (2.6-4.7) Magnesium Level 1.9 mg/dL (1.8-2.4) 2.0 mg/dL (1.8-2.4) Creatine Kinase 4039 U/L (26-192) White Blood Count 13.7 x10^3/uL (4.0-11.0) Red Blood Count 4.19 x10^6/uL (3.50-5.40) Hemoglobin 13.9 g/dL (12.0-15.5) Hematocrit 41.3 % (36.0-47.0) Mean Corpuscular Volume 99 fL (79-100) Mean Corpuscular Hemoglobin 33 pg (25-35) Mean Corpuscular Hemoglobin Concent 34 g/dL (31-37) Red Cell Distribution Width 12.7 % (11.5-14.5) Platelet Count 188 x10^3/uL (140-400) Prothrombin Time 27.9 SEC (11.7-14.0) Prothromb Time International Ratio 2.8 (0.8-1.1) Activated Partial Thromboplast Time 40 SEC (24-38) Heparin Anti-Xa Act, Unfractionated 0.10 IU/mL (0.30-0.70) Test 02/13/17 20:30 02/13/17 21:50 02/14/17 00:01 02/14/17 01:55 Sodium Level 129 mmol/L (136-145) 127 mmol/L (136-145) Potassium Level 4.0 mmol/L (3.5-5.1) 4.3 mmol/L (3.5-5.1) Chloride Level 93 mmol/L (98-107) 93 mmol/L (98-107) Carbon Dioxide Level 23 mmol/L (21-32) 23 mmol/L (21-32) Anion Gap 13 (6-14) 11 (6-14) Blood Urea Nitrogen 34 mg/dL (7-20) 34 mg/dL (7-20) Creatinine 1.8 mg/dL (0.6-1.0) 2.1 mg/dL (0.6-1.0) Estimated GFR (Cockcroft-Gault) 35.5 29.7 Glucose Level 165 mg/dL (70-99) 174 mg/dL (70-99) Calcium Level 7.6 mg/dL (8.5-10.1) 7.5 mg/dL (8.5-10.1) Phosphorus Level 4.2 mg/dL (2.6-4.7) 4.3 mg/dL (2.6-4.7) Magnesium Level 1.9 mg/dL (1.8-2.4) 1.9 mg/dL (1.8-2.4) White Blood Count 18.9 x10^3/uL (4.0-11.0) Red Blood Count 4.03 x10^6/uL (3.50-5.40) Hemoglobin 13.5 g/dL (12.0-15.5) Hematocrit 39.6 % (36.0-47.0) Mean Corpuscular Volume 98 fL (79-100) Mean Corpuscular Hemoglobin 34 pg (25-35) Mean Corpuscular Hemoglobin Concent 34 g/dL (31-37) Red Cell Distribution Width 13.0 % (11.5-14.5) Platelet Count 168 x10^3/uL (140-400) Prothrombin Time 30.7 SEC (11.7-14.0) Prothromb Time International Ratio 3.2 (0.8-1.1) Activated Partial Thromboplast Time > 150 SEC (24-38) Heparin Anti-Xa Act, Unfractionated 0.28 IU/mL (0.30-0.70) Test 02/14/17 03:45 02/14/17 05:25 02/14/17 07:30 02/14/17 08:35 Sodium Level 128 mmol/L (136-145) 128 mmol/L (136-145) Potassium Level 4.2 mmol/L (3.5-5.1) 4.3 mmol/L (3.5-5.1) Chloride Level 93 mmol/L (98-107) 94 mmol/L (98-107) Carbon Dioxide Level 23 mmol/L (21-32) 21 mmol/L (21-32) Anion Gap 12 (6-14) 13 (6-14) Blood Urea Nitrogen 36 mg/dL (7-20) 37 mg/dL (7-20) Creatinine 2.2 mg/dL (0.6-1.0) 2.2 mg/dL (0.6-1.0) Estimated GFR (Cockcroft-Gault) 28.1 28.1 Glucose Level 148 mg/dL (70-99) 144 mg/dL (70-99) Calcium Level 7.6 mg/dL (8.5-10.1) 7.0 mg/dL (8.5-10.1) Phosphorus Level 4.6 mg/dL (2.6-4.7) 4.6 mg/dL (2.6-4.7) Magnesium Level 1.8 mg/dL (1.8-2.4) 1.8 mg/dL (1.8-2.4) White Blood Count 22.4 x10^3/uL (4.0-11.0) Red Blood Count 3.95 x10^6/uL (3.50-5.40) Hemoglobin 13.3 g/dL (12.0-15.5) Hematocrit 38.4 % (36.0-47.0) Mean Corpuscular Volume 97 fL (79-100) Mean Corpuscular Hemoglobin 34 pg (25-35) Mean Corpuscular Hemoglobin Concent 35 g/dL (31-37) Red Cell Distribution Width 13.4 % (11.5-14.5) Platelet Count 174 x10^3/uL (140-400) Prothrombin Time 30.3 SEC (11.7-14.0) Prothromb Time International Ratio 3.1 (0.8-1.1) Activated Partial Thromboplast Time > 150 SEC (24-38) Lactic Acid Level 2.0 mmol/L (0.4-2.0) Albumin 1.8 g/dL (3.4-5.0) O2 Saturation 96 % (92-99) Arterial Blood pH 7.24 (7.35-7.45) Arterial Blood pCO2 at Patient Temp 40 mmHg (35-46) Arterial Blood pO2 at Patient Temp 93 mmHg (75-108) Arterial Blood HCO3 17 mmol/L (21-28) Arterial Blood Base Excess -10 mmol/L (-3-3) FiO2 40 Heparin Anti-Xa Act, Unfractionated 0.24 IU/mL (0.30-0.70) Test 02/14/17 08:55 02/14/17 12:52 02/14/17 16:00 02/14/17 19:30 Sodium Level 127 mmol/L (136-145) 126 mmol/L (136-145) 127 mmol/L (136-145) 126 mmol/L (136-145) Potassium Level 4.3 mmol/L (3.5-5.1) 4.4 mmol/L (3.5-5.1) 4.6 mmol/L (3.5-5.1) Chloride Level 94 mmol/L (98-107) 94 mmol/L (98-107) 94 mmol/L (98-107) Carbon Dioxide Level 20 mmol/L (21-32) 20 mmol/L (21-32) 20 mmol/L (21-32) Anion Gap 13 (6-14) 12 (6-14) 13 (6-14) Blood Urea Nitrogen 38 mg/dL (7-20) 40 mg/dL (7-20) 41 mg/dL (7-20) Creatinine 2.4 mg/dL (0.6-1.0) 2.6 mg/dL (0.6-1.0) 2.8 mg/dL (0.6-1.0) Estimated GFR (Cockcroft-Gault) 25.5 23.2 21.3 Glucose Level 130 mg/dL (70-99) 185 mg/dL (70-99) 123 mg/dL (70-99) Calcium Level 7.4 mg/dL (8.5-10.1) 7.1 mg/dL (8.5-10.1) 7.2 mg/dL (8.5-10.1) Phosphorus Level 4.4 mg/dL (2.6-4.7) 4.5 mg/dL (2.6-4.7) 4.9 mg/dL (2.6-4.7) Magnesium Level 1.9 mg/dL (1.8-2.4) 1.7 mg/dL (1.8-2.4) 1.7 mg/dL (1.8-2.4) White Blood Count 24.5 x10^3/uL (4.0-11.0) Red Blood Count 3.87 x10^6/uL (3.50-5.40) Hemoglobin 13.1 g/dL (12.0-15.5) Hematocrit 37.4 % (36.0-47.0) Mean Corpuscular Volume 96 fL (79-100) Mean Corpuscular Hemoglobin 34 pg (25-35) Mean Corpuscular Hemoglobin Concent 35 g/dL (31-37) Red Cell Distribution Width 13.5 % (11.5-14.5) Platelet Count 175 x10^3/uL (140-400) Prothrombin Time 25.7 SEC (11.7-14.0) Prothromb Time International Ratio 2.5 (0.8-1.1) Activated Partial Thromboplast Time 37 SEC (24-38) Test 02/15/17 00:01 02/15/17 05:20 02/15/17 07:08 Sodium Level 125 mmol/L (136-145) 124 mmol/L (136-145) Potassium Level 4.6 mmol/L (3.5-5.1) Chloride Level 92 mmol/L (98-107) Carbon Dioxide Level 18 mmol/L (21-32) Anion Gap 14 (6-14) Blood Urea Nitrogen 48 mg/dL (7-20) Creatinine 3.4 mg/dL (0.6-1.0) Estimated GFR (Cockcroft-Gault) 17.0 Glucose Level 153 mg/dL (70-99) Calcium Level 6.9 mg/dL (8.5-10.1) Phosphorus Level 4.7 mg/dL (2.6-4.7) Magnesium Level 1.8 mg/dL (1.8-2.4) Albumin 1.8 g/dL (3.4-5.0) O2 Saturation 97 % (92-99) Arterial Blood pH 7.25 (7.35-7.45) Arterial Blood pCO2 at Patient Temp 41 mmHg (35-46) Arterial Blood pO2 at Patient Temp 103 mmHg (75-108) Arterial Blood HCO3 17 mmol/L (21-28) Arterial Blood Base Excess -9 mmol/L (-3-3) FiO2 40 Laboratory Tests Test 02/14/17 12:52 02/14/17 16:00 02/14/17 19:30 02/15/17 00:01 Sodium Level 126 mmol/L (136-145) 127 mmol/L (136-145) 126 mmol/L (136-145) 125 mmol/L (136-145) Potassium Level 4.4 mmol/L (3.5-5.1) 4.6 mmol/L (3.5-5.1) Chloride Level 94 mmol/L (98-107) 94 mmol/L (98-107) Carbon Dioxide Level 20 mmol/L (21-32) 20 mmol/L (21-32) Anion Gap 12 (6-14) 13 (6-14) Blood Urea Nitrogen 40 mg/dL (7-20) 41 mg/dL (7-20) Creatinine 2.6 mg/dL (0.6-1.0) 2.8 mg/dL (0.6-1.0) Estimated GFR (Cockcroft-Gault) 23.2 21.3 Glucose Level 185 mg/dL (70-99) 123 mg/dL (70-99) Calcium Level 7.1 mg/dL (8.5-10.1) 7.2 mg/dL (8.5-10.1) Phosphorus Level 4.5 mg/dL (2.6-4.7) 4.9 mg/dL (2.6-4.7) Magnesium Level 1.7 mg/dL (1.8-2.4) 1.7 mg/dL (1.8-2.4) White Blood Count 24.5 x10^3/uL (4.0-11.0) Red Blood Count 3.87 x10^6/uL (3.50-5.40) Hemoglobin 13.1 g/dL (12.0-15.5) Hematocrit 37.4 % (36.0-47.0) Mean Corpuscular Volume 96 fL (79-100) Mean Corpuscular Hemoglobin 34 pg (25-35) Mean Corpuscular Hemoglobin Concent 35 g/dL (31-37) Red Cell Distribution Width 13.5 % (11.5-14.5) Platelet Count 175 x10^3/uL (140-400) Prothrombin Time 25.7 SEC (11.7-14.0) Prothromb Time International Ratio 2.5 (0.8-1.1) Activated Partial Thromboplast Time 37 SEC (24-38) Test 02/15/17 05:20 02/15/17 07:08 Sodium Level 124 mmol/L (136-145) Potassium Level 4.6 mmol/L (3.5-5.1) Chloride Level 92 mmol/L (98-107) Carbon Dioxide Level 18 mmol/L (21-32) Anion Gap 14 (6-14) Blood Urea Nitrogen 48 mg/dL (7-20) Creatinine 3.4 mg/dL (0.6-1.0) Estimated GFR (Cockcroft-Gault) 17.0 Glucose Level 153 mg/dL (70-99) Calcium Level 6.9 mg/dL (8.5-10.1) Phosphorus Level 4.7 mg/dL (2.6-4.7) Magnesium Level 1.8 mg/dL (1.8-2.4) Albumin 1.8 g/dL (3.4-5.0) O2 Saturation 97 % (92-99) Arterial Blood pH 7.25 (7.35-7.45) Arterial Blood pCO2 at Patient Temp 41 mmHg (35-46) Arterial Blood pO2 at Patient Temp 103 mmHg (75-108) Arterial Blood HCO3 17 mmol/L (21-28) Arterial Blood Base Excess -9 mmol/L (-3-3) FiO2 40 Medications Active Scripts Medications Dose Route/Sig Max Daily Dose Days Date Category Latuda (Lurasidone Hcl) 20 Mg Tablet 20 Mg PO AFTRNOON 02/12/17 Reported Remeron (Mirtazapine) 15 Mg Tablet 1 Tab PO QHS 02/12/17 Reported Oxybutynin Chloride Er (Oxybutynin Chloride) 10 Mg Tab.er.24 1 Tab PO DAILY 02/12/17 Reported Multivitamins (Multivitamin) 1 Each Tablet 1 Tab PO DAILY 02/12/17 Reported Latuda (Lurasidone Hcl) 20 Mg Tablet 10 Mg PO AFTRNOON 02/12/17 Reported Lorazepam 0.5 Mg Tablet 1 Tab PO QEVNG 02/12/17 Reported Duoneb 0.5-3(2.5) Mg/3 Ml (Albuterol/Ipratropium) 3 Ml Ampul.neb 3 Ml NEB BID 02/12/17 Reported Duoneb 0.5-3(2.5) Mg/3 Ml (Albuterol/Ipratropium) 3 Ml Ampul.neb 3 Ml NEB Q4H PRN 02/12/17 Reported Calcium Carbonate 500 Mg Tablet 1,000 Mg PO Q4HRS PRN 02/12/17 Reported Nicotine Gum (Nicotine Polacrilex) 4 Mg Gum 4 Mg BC 02/12/17 Reported Milk Of Magnesia (Magnesium Hydroxide) 400 Mg/5 Ml Oral.susp 400 Mg PO Q3DAYS PRN 02/12/17 Reported Milk Of Magnesia (Magnesium Hydroxide) 400 Mg/5 Ml Oral.susp 400 Mg PO Q3DAYS PRN 02/12/17 Reported Lorazepam 1 Mg Tablet 1 Tab PO Q12HR PRN 02/12/17 Reported Ibuprofen 400 Mg Tablet 200 Mg PO Q8HRS PRN 02/12/17 Reported Cough Drops (Eucalyptus Oil/Menthol) 7 Mg Lozenge 7 Mg MM Q4HRS PRN 02/12/17 Reported Tylenol (Acetaminophen) 325 Mg Tablet 650 Mg PO Q4HRS PRN 02/12/17 Reported Lovaza ([place]-3 Acid Ethyl Esters) 1 Gm Capsule 1 Cap PO QID 02/12/17 Reported Gabapentin 400 Mg Capsule 400 Mg PO QID 02/12/17 Reported Lorazepam 1 Mg Tablet 1 Tab PO BID 02/12/17 Reported Latuda (Lurasidone Hcl) 60 Mg Tablet 60 Mg PO BID 02/12/17 Reported Advair 100-50 Diskus (Fluticasone/Salmeterol) 1 Each Disk.w.dev 1 Puff IH BID 02/12/17 Reported Acetaminophen 325 Mg Capsule 650 Mg PO BID 02/12/17 Reported Vitamin D (Cholecalciferol (Vitamin D3)) 2,000 Unit Capsule 800 Unit PO DAILY 02/12/17 Reported Impression . 1. Acute respiratory failure. The etiology of respiratory failure is multifactorial and includes a combination of cardiac arrest,acute exacerbation of chronic obstructive pulmonary disease, possible effect of benzodiazepine which she is taking chronically, and possible hyponatremia contributing to the encephalopathy. 2. Acute encephalopathy. This is again multifactorial, most likely metabolic and toxic. 3. Status post cardiac arrest. She had asystole. She had CPR for 20 minutes and she was down for 2 hours. Possibility of anoxic brain injury cannot be ruled out. 4. Abnormal echocardiogram with ejection fraction of 35%. She also has diastolic dysfunction and she also has right ventricular dilatation. This is consistent with biventricular failure. Clinically, I suspect less likely thromboembolic disease. However, to rule this out, she will need a CTA chest, but she cannot handle contrast due to renal failure and a V/Q scan cannot be done while on the ventilator. empirically on heparin. RV dilatation could be related to her severe chronic obstructive pulmonary disease. 5. Hyponatremia, being corrected. 6. Abnormal LFTs secondary to hypoperfusion. 7. Suspected anoxic encephalopathy. 8. Acute renal failure. 9. shock, combination of cardiogenic,septic Plan . 1. Continue with present assist control mode and make necessary adjustment based on ABGs. 2. Continue broad-spectrum antibiotics. 3. Marked lactic acidosis related to hypoperfusion from cardiac arrest / IMPROVED 4. Bicarb/ will need HD 5. DVT prophylaxis. The patient already has a high INR. dc heparin protocol. Do not think VTE. 6. Stress ulcer prophylaxis with Pepcid. 7. vasopressor. 8. venous Dopplers of lower extremities neg for DVT 9. Pts condition has worsened. she has multi-system organ failure and severe shock. I did bed side assessment. she has gag reflex , no corneal reflex and no spontaneous respirations. I would recommend not to do CPR if she codes 10. Discussed with RN and RT./ cct 30 min NEVA FALCON MD Feb 15, 2017 10:58
[2017-02-15] MEDS: PIPERACILLIN/TAZOBACTAM 2.25 GM in IV NORMAL SALINE 50ML 50 ML IV SCH ×2 (12:00→17:49)
--- NOTE | 2017-02-15 13:53 | PDOC ---
PROGRESS NOTES Subjective Subjective SEEN IN FOLLOW UP OF ARF Objective Objective Vital Signs Date Time Temp Pulse Resp B/P (MAP) Pulse Ox O2 Delivery O2 Flow Rate FiO2 02/15/17 13:04 100 Ventilator 02/15/17 12:00 100 101/61 (74) 02/15/17 08:35 97.9 26 97.9 Intake and Output 02/16/17 07:00 Output Total 15 ml Balance -15 ml Output Urine Total 15 ml Physical Exam Abdomen: Normal bowel sounds, Soft, No tenderness, No hepatosplenomegaly, No masses Heart: Regular rate, Normal S1, Normal S2, No murmurs, Gallops Extremities: No clubbing, No cyanosis, No edema, Normal pulses, No tenderness/ swelling General: Other (OBTUNDED) Lungs: Clear to auscultation, Normal air movement, Other (ON VENT) Diagnosis RENAL FAILURE: Acute (Acute tubular necrosis) Assessment Assessment Problems Medical Problems: (1) Cardiac arrest Status: Acute (2) Elevated troponin Status: Acute (3) Hyperkalemia Status: Acute (4) Hypoglycemia Status: Acute (5) Hyponatremia Status: Acute Plan Plan of Care FURTHER WORSENING OF GFR. WILL BEGIN DIALYSIS. NEEDS HD CATHETER PER IR. HOLD PPN UNTIL TOMORROW Comment Review of Relevant I have reviewed the following items reji (where applicable) has been applied. Labs Laboratory Tests Test 02/13/17 14:05 02/13/17 16:00 02/13/17 18:40 02/13/17 20:30 White Blood Count 13.7 x10^3/uL (4.0-11.0) Red Blood Count 4.19 x10^6/uL (3.50-5.40) Hemoglobin 13.9 g/dL (12.0-15.5) Hematocrit 41.3 % (36.0-47.0) Mean Corpuscular Volume 99 fL (79-100) Mean Corpuscular Hemoglobin 33 pg (25-35) Mean Corpuscular Hemoglobin Concent 34 g/dL (31-37) Red Cell Distribution Width 12.7 % (11.5-14.5) Platelet Count 188 x10^3/uL (140-400) Prothrombin Time 27.9 SEC (11.7-14.0) Prothromb Time International Ratio 2.8 (0.8-1.1) Activated Partial Thromboplast Time 40 SEC (24-38) Sodium Level 130 mmol/L (136-145) 129 mmol/L (136-145) 129 mmol/L (136-145) Potassium Level 4.4 mmol/L (3.5-5.1) 4.0 mmol/L (3.5-5.1) Chloride Level 95 mmol/L (98-107) 93 mmol/L (98-107) Carbon Dioxide Level 23 mmol/L (21-32) 23 mmol/L (21-32) Anion Gap 12 (6-14) 13 (6-14) Blood Urea Nitrogen 30 mg/dL (7-20) 34 mg/dL (7-20) Creatinine 1.7 mg/dL (0.6-1.0) 1.8 mg/dL (0.6-1.0) Estimated GFR (Cockcroft-Gault) 37.9 35.5 Glucose Level 133 mg/dL (70-99) 165 mg/dL (70-99) Calcium Level 7.5 mg/dL (8.5-10.1) 7.6 mg/dL (8.5-10.1) Phosphorus Level 4.0 mg/dL (2.6-4.7) 4.2 mg/dL (2.6-4.7) Magnesium Level 2.0 mg/dL (1.8-2.4) 1.9 mg/dL (1.8-2.4) Heparin Anti-Xa Act, Unfractionated 0.10 IU/mL (0.30-0.70) Test 02/13/17 21:50 02/14/17 00:01 02/14/17 01:55 02/14/17 03:45 White Blood Count 18.9 x10^3/uL (4.0-11.0) Red Blood Count 4.03 x10^6/uL (3.50-5.40) Hemoglobin 13.5 g/dL (12.0-15.5) Hematocrit 39.6 % (36.0-47.0) Mean Corpuscular Volume 98 fL (79-100) Mean Corpuscular Hemoglobin 34 pg (25-35) Mean Corpuscular Hemoglobin Concent 34 g/dL (31-37) Red Cell Distribution Width 13.0 % (11.5-14.5) Platelet Count 168 x10^3/uL (140-400) Prothrombin Time 30.7 SEC (11.7-14.0) Prothromb Time International Ratio 3.2 (0.8-1.1) Activated Partial Thromboplast Time > 150 SEC (24-38) Sodium Level 127 mmol/L (136-145) 128 mmol/L (136-145) Potassium Level 4.3 mmol/L (3.5-5.1) 4.2 mmol/L (3.5-5.1) Chloride Level 93 mmol/L (98-107) 93 mmol/L (98-107) Carbon Dioxide Level 23 mmol/L (21-32) 23 mmol/L (21-32) Anion Gap 11 (6-14) 12 (6-14) Blood Urea Nitrogen 34 mg/dL (7-20) 36 mg/dL (7-20) Creatinine 2.1 mg/dL (0.6-1.0) 2.2 mg/dL (0.6-1.0) Estimated GFR (Cockcroft-Gault) 29.7 28.1 Glucose Level 174 mg/dL (70-99) 148 mg/dL (70-99) Calcium Level 7.5 mg/dL (8.5-10.1) 7.6 mg/dL (8.5-10.1) Phosphorus Level 4.3 mg/dL (2.6-4.7) 4.6 mg/dL (2.6-4.7) Magnesium Level 1.9 mg/dL (1.8-2.4) 1.8 mg/dL (1.8-2.4) Heparin Anti-Xa Act, Unfractionated 0.28 IU/mL (0.30-0.70) Test 02/14/17 05:25 02/14/17 07:30 02/14/17 08:35 02/14/17 08:55 White Blood Count 22.4 x10^3/uL (4.0-11.0) Red Blood Count 3.95 x10^6/uL (3.50-5.40) Hemoglobin 13.3 g/dL (12.0-15.5) Hematocrit 38.4 % (36.0-47.0) Mean Corpuscular Volume 97 fL (79-100) Mean Corpuscular Hemoglobin 34 pg (25-35) Mean Corpuscular Hemoglobin Concent 35 g/dL (31-37) Red Cell Distribution Width 13.4 % (11.5-14.5) Platelet Count 174 x10^3/uL (140-400) Prothrombin Time 30.3 SEC (11.7-14.0) Prothromb Time International Ratio 3.1 (0.8-1.1) Activated Partial Thromboplast Time > 150 SEC (24-38) Sodium Level 128 mmol/L (136-145) 127 mmol/L (136-145) Potassium Level 4.3 mmol/L (3.5-5.1) 4.3 mmol/L (3.5-5.1) Chloride Level 94 mmol/L (98-107) 94 mmol/L (98-107) Carbon Dioxide Level 21 mmol/L (21-32) 20 mmol/L (21-32) Anion Gap 13 (6-14) 13 (6-14) Blood Urea Nitrogen 37 mg/dL (7-20) 38 mg/dL (7-20) Creatinine 2.2 mg/dL (0.6-1.0) 2.4 mg/dL (0.6-1.0) Estimated GFR (Cockcroft-Gault) 28.1 25.5 Glucose Level 144 mg/dL (70-99) 130 mg/dL (70-99) Lactic Acid Level 2.0 mmol/L (0.4-2.0) Calcium Level 7.0 mg/dL (8.5-10.1) 7.4 mg/dL (8.5-10.1) Phosphorus Level 4.6 mg/dL (2.6-4.7) 4.4 mg/dL (2.6-4.7) Magnesium Level 1.8 mg/dL (1.8-2.4) 1.9 mg/dL (1.8-2.4) Albumin 1.8 g/dL (3.4-5.0) O2 Saturation 96 % (92-99) Arterial Blood pH 7.24 (7.35-7.45) Arterial Blood pCO2 at Patient Temp 40 mmHg (35-46) Arterial Blood pO2 at Patient Temp 93 mmHg (75-108) Arterial Blood HCO3 17 mmol/L (21-28) Arterial Blood Base Excess -10 mmol/L (-3-3) FiO2 40 Heparin Anti-Xa Act, Unfractionated 0.24 IU/mL (0.30-0.70) Test 02/14/17 12:52 02/14/17 16:00 02/14/17 19:30 02/15/17 00:01 Sodium Level 126 mmol/L (136-145) 127 mmol/L (136-145) 126 mmol/L (136-145) 125 mmol/L (136-145) Potassium Level 4.4 mmol/L (3.5-5.1) 4.6 mmol/L (3.5-5.1) Chloride Level 94 mmol/L (98-107) 94 mmol/L (98-107) Carbon Dioxide Level 20 mmol/L (21-32) 20 mmol/L (21-32) Anion Gap 12 (6-14) 13 (6-14) Blood Urea Nitrogen 40 mg/dL (7-20) 41 mg/dL (7-20) Creatinine 2.6 mg/dL (0.6-1.0) 2.8 mg/dL (0.6-1.0) Estimated GFR (Cockcroft-Gault) 23.2 21.3 Glucose Level 185 mg/dL (70-99) 123 mg/dL (70-99) Calcium Level 7.1 mg/dL (8.5-10.1) 7.2 mg/dL (8.5-10.1) Phosphorus Level 4.5 mg/dL (2.6-4.7) 4.9 mg/dL (2.6-4.7) Magnesium Level 1.7 mg/dL (1.8-2.4) 1.7 mg/dL (1.8-2.4) White Blood Count 24.5 x10^3/uL (4.0-11.0) Red Blood Count 3.87 x10^6/uL (3.50-5.40) Hemoglobin 13.1 g/dL (12.0-15.5) Hematocrit 37.4 % (36.0-47.0) Mean Corpuscular Volume 96 fL (79-100) Mean Corpuscular Hemoglobin 34 pg (25-35) Mean Corpuscular Hemoglobin Concent 35 g/dL (31-37) Red Cell Distribution Width 13.5 % (11.5-14.5) Platelet Count 175 x10^3/uL (140-400) Prothrombin Time 25.7 SEC (11.7-14.0) Prothromb Time International Ratio 2.5 (0.8-1.1) Activated Partial Thromboplast Time 37 SEC (24-38) Test 02/15/17 05:20 02/15/17 07:08 02/15/17 11:35 Sodium Level 124 mmol/L (136-145) 124 mmol/L (136-145) Potassium Level 4.6 mmol/L (3.5-5.1) Chloride Level 92 mmol/L (98-107) Carbon Dioxide Level 18 mmol/L (21-32) Anion Gap 14 (6-14) Blood Urea Nitrogen 48 mg/dL (7-20) Creatinine 3.4 mg/dL (0.6-1.0) Estimated GFR (Cockcroft-Gault) 17.0 Glucose Level 153 mg/dL (70-99) Calcium Level 6.9 mg/dL (8.5-10.1) Phosphorus Level 4.7 mg/dL (2.6-4.7) Magnesium Level 1.8 mg/dL (1.8-2.4) Albumin 1.8 g/dL (3.4-5.0) O2 Saturation 97 % (92-99) Arterial Blood pH 7.25 (7.35-7.45) Arterial Blood pCO2 at Patient Temp 41 mmHg (35-46) Arterial Blood pO2 at Patient Temp 103 mmHg (75-108) Arterial Blood HCO3 17 mmol/L (21-28) Arterial Blood Base Excess -9 mmol/L (-3-3) FiO2 40 Laboratory Tests Test 02/14/17 16:00 02/14/17 19:30 02/15/17 00:01 02/15/17 05:20 White Blood Count 24.5 x10^3/uL (4.0-11.0) Red Blood Count 3.87 x10^6/uL (3.50-5.40) Hemoglobin 13.1 g/dL (12.0-15.5) Hematocrit 37.4 % (36.0-47.0) Mean Corpuscular Volume 96 fL (79-100) Mean Corpuscular Hemoglobin 34 pg (25-35) Mean Corpuscular Hemoglobin Concent 35 g/dL (31-37) Red Cell Distribution Width 13.5 % (11.5-14.5) Platelet Count 175 x10^3/uL (140-400) Prothrombin Time 25.7 SEC (11.7-14.0) Prothromb Time International Ratio 2.5 (0.8-1.1) Activated Partial Thromboplast Time 37 SEC (24-38) Sodium Level 127 mmol/L (136-145) 126 mmol/L (136-145) 125 mmol/L (136-145) 124 mmol/L (136-145) Potassium Level 4.6 mmol/L (3.5-5.1) 4.6 mmol/L (3.5-5.1) Chloride Level 94 mmol/L (98-107) 92 mmol/L (98-107) Carbon Dioxide Level 20 mmol/L (21-32) 18 mmol/L (21-32) Anion Gap 13 (6-14) 14 (6-14) Blood Urea Nitrogen 41 mg/dL (7-20) 48 mg/dL (7-20) Creatinine 2.8 mg/dL (0.6-1.0) 3.4 mg/dL (0.6-1.0) Estimated GFR (Cockcroft-Gault) 21.3 17.0 Glucose Level 123 mg/dL (70-99) 153 mg/dL (70-99) Calcium Level 7.2 mg/dL (8.5-10.1) 6.9 mg/dL (8.5-10.1) Phosphorus Level 4.9 mg/dL (2.6-4.7) 4.7 mg/dL (2.6-4.7) Magnesium Level 1.7 mg/dL (1.8-2.4) 1.8 mg/dL (1.8-2.4) Albumin 1.8 g/dL (3.4-5.0) Test 02/15/17 07:08 02/15/17 11:35 O2 Saturation 97 % (92-99) Arterial Blood pH 7.25 (7.35-7.45) Arterial Blood pCO2 at Patient Temp 41 mmHg (35-46) Arterial Blood pO2 at Patient Temp 103 mmHg (75-108) Arterial Blood HCO3 17 mmol/L (21-28) Arterial Blood Base Excess -9 mmol/L (-3-3) FiO2 40 Sodium Level 124 mmol/L (136-145) Microbiology 02/12/17 Blood Culture - Preliminary, Resulted 02/12/17 Blood Culture Result 1 (ELIZABETH) - Preliminary, Resulted 02/12/17 Urine Culture - Preliminary, Resulted 02/12/17 Urine Culture Result 1 (ELIZABETH) - Preliminary, Resulted Medications Current Medications Calcium Chloride 1,000 mg 1X ONCE IV Last administered on 02/12/17 15:35; Start 02/12/17 at 16:00; Stop 02/12/17 at 16:35; Status DC Dextrose (Dextrose 50%-Water Syringe) 25 gm 1X ONCE IV Last administered on 15:33; Start 02/12/17 at 16:00; Stop 02/12/17 at 16:35; Status DC Sodium Bicarbonate 50 meq 1X ONCE IV Last administered on 02/12/17 15:35; Start 02/12/17 at 16:00; Stop 02/12/17 at 16:35; Status DC Furosemide (Lasix) 40 mg 1X ONCE IVP Last administered on 02/12/17 16:42; Start 02/12/17 at 16:30; Stop 02/12/17 at 16:35; Status DC Sodium Chloride 1,000 ml @ 1,000 mls/hr Q1H IV Last administered on 02/12/17 15:50; Start 02/12/17 at 16:57; Stop 02/13/17 at 07:23; Status DC Fentanyl Citrate (Fentanyl 2ml Vial) 25 mcg PRN Q30MIN PRN IV SED; Start at 17:00 Lorazepam (Ativan) 1 mg PRN Q30MIN PRN IV SEDATION; Start 02/12/17 at 17:00 Fentanyl Citrate 30 ml @ 2.5 mls/hr CONT PRN PRN IV IVF Last administered on 03:27; Start 02/12/17 at 17:00 Propofol 100 ml @ 0 mls/hr CONT PRN IV SEE I/O RECORD; Start 02/12/17 at 17:00 Vecuronium [place] (Norcuron Bolus) DOSE AT 0.1 mg/kg PRN Q30MIN PRN IV SHIVERING Last administered on 02/12/17 19:46; Start 02/12/17 at 17:00; Stop 02/13 at 11:01; Status DC Meperidine HCl (Demerol) 12.5 mg PRN Q30MIN PRN IV SHIVERING; Start 02/12/17 at 17:00 Multi-Ingred Cream/Lotion/Oil/ Oint (Artificial Tears Eye Oint) 1 silvestre PRN Q6HRS PRN OU 0.5 INCH FOR DRY EYE; Start 02/12/17 at 17:00 Famotidine (Pepcid) 20 mg BID IVP Last administered on 02/14/17 10:47; Start at 09:00; Stop 02/14/17 at 16:23; Status DC Aspirin (Aspirin) 300 mg DAILY HI Last administered on 02/15/17 09:30; Start at 09:00 Sodium Chloride (Normal Saline Flush) 3 ml QSHIFT PRN IV AFTER MEDS AND BLOOD DRAWS; Start 02/12/17 at 17:00 Acetaminophen (Tylenol) 650 mg Q6HRS NG Last administered on 02/13/17 05:51; Start 02/12/17 at 18:00; Stop 02/13/17 at 17:59; Status DC Acetaminophen (Acetaminophen Supp) 650 mg PRN Q6HRS PRN HI MILD PAIN / TEMP; Start 02/13/17 at 17:00 Acetaminophen (Tylenol) 650 mg PRN Q6HRS PRN NG MILD PAIN / TEMP; Start at 17:00 Info 1 ea DAILY PRN MC PER PROTOCOL; Start 02/14/17 at 17:00 Sodium Chloride 500 ml @ 500 mls/hr 1X ONCE IV Last administered on 02/12/17 16:30; Start 02/12/17 at 17:15; Stop 02/12/17 at 18:14; Status DC Sodium Chloride 500 ml @ 500 mls/hr 1X ONCE IV Last administered on 02/12/17 16:50; Start 02/12/17 at 17:15; Stop 02/12/17 at 18:14; Status DC Sodium Chloride 1,000 ml @ 100 mls/hr Q10H IV Last administered on 02/13/17 06 :36; Start 02/12/17 at 19:00; Stop 02/13/17 at 10:51; Status DC Famotidine (Pepcid) 20 mg 1X ONCE PO Last administered on 02/12/17 19:57; Start 02/12/17 at 17:30; Stop 02/12/17 at 17:34; Status DC Methylprednisolone Sodium Succinate (SOLU-Medrol 40MG VIAL) 100 mg TID IV Last administered on 02/14/17 11:01; Start 02/12/17 at 18:00; Stop 02/14/17 at 12:00; Status DC Sodium Chloride 1,000 ml @ 1,000 mls/hr 1X ONCE IV Last administered on 19:31; Start 02/12/17 at 18:15; Stop 02/12/17 at 19:14; Status DC Piperacillin Sod/ Tazobactam Sod (Zosyn Per Pharmacy) 1 each PRN DAILY PRN MC SEE COMMENTS; Start 02/12/17 at 19:15 Vancomycin HCl (Vanco Per Pharmacy) 1 each PRN DAILY PRN MC SEE COMMENTS Last administered on 02/13/17 16:50; Start 02/12/17 at 19:15; Stop 02/14/17 at 07:57; Status DC Piperacillin Sod/ Tazobactam Sod 3.375 gm/Sodium Chloride 50 ml @ 100 mls/hr Q6HRS IV Last administered on 02/15/17 05:58; Start 02/12/17 at 19:30; Stop 02/15 at 09:37; Status DC Vancomycin HCl 1 gm/Sodium Chloride 250 ml @ 250 mls/hr 1X ONCE IV Last administered on 02/12/17 20:00; Start 02/12/17 at 19:30; Stop 02/12/17 at 20:29; Status DC Sodium Bicarbonate 50 meq 1X ONCE IV Last administered on 02/12/17 19:59; Start 02/12/17 at 19:30; Stop 02/12/17 at 19:31; Status DC Norepinephrine Bitartrate 250 ml @ 0 mls/hr CONT PRN IV SEE I/O RECORD Last administered on 02/15/17 01:52; Start 02/12/17 at 19:30 Norepinephrine Bitartrate 250 ml @ As Directed STK-MED ONCE IV ; Start 02/12/17 at 19:25; Stop 02/12/17 at 19:26; Status DC Vancomycin HCl 750 mg/Sodium Chloride 250 ml @ 250 mls/hr Q24H IV Last administered on 02/13/17 20:34; Start 02/13/17 at 20:00; Stop 02/14/17 at 07:57; Status DC Vancomycin HCl 1 each 1X ONCE MC ; Start 02/14/17 at 19:30; Stop 02/14/17 at 19: 31; Status Cancel Sodium Chloride 1,000 ml @ 1,000 mls/hr 1X ONCE IV Last administered on 05:05; Start 02/13/17 at 04:45; Stop 02/13/17 at 05:44; Status DC Sodium Chloride 1,000 ml @ 1,000 mls/hr 1X ONCE IV Last administered on 05:35; Start 02/13/17 at 05:30; Stop 02/13/17 at 06:29; Status DC Magnesium Sulfate/ Dextrose 50 ml @ 25 mls/hr PRN DAILY PRN IV for Mag < 1.7 on am labs; Start 02/13/17 at 10:45 Dextrose/Sodium Chloride 1,000 ml @ 75 mls/hr [id number] IV Last administered on 02/15/17 01:52; Start 02/13/17 at 11:00; Stop 02/15/17 at 08:52; Status DC Vecuronium [place] (Norcuron Bolus) 5 mg PRN Q30MIN PRN IV SHIVERING; Start 02/13/17 at 11:15 Lidocaine/Sodium Bicarbonate (Buffered Lidocaine 1%) 3 ml 1X ONCE IJ Last administered on 02/13/17 11:40; Start 02/13/17 at 11:15; Stop 02/13/17 at 11:26; Status DC Heparin Sodium/ Sodium Chloride 60 unit 1X ONCE IV Last administered on 11:40; Start 02/13/17 at 11:15; Stop 02/13/17 at 11:26; Status DC Lidocaine/Sodium Bicarbonate (Buffered Lidocaine 1%) 20 ml STK-MED ONCE IJ ; Start 02/13/17 at 11:22; Stop 02/13/17 at 11:29; Status DC Heparin Sodium (Porcine) (Heparin Sodium) 2,075 unit 1X ONCE IV Last administered on 02/13/17 12:45; Start 02/13/17 at 11:45; Stop 02/13/17 at 11:56; Status DC Heparin Sodium/ Dextrose 500 ml @ 16.5 mls/hr CONT PRN IV SEE I/O RECORD Last administered on 02/13/17 12:47; Start 02/13/17 at 11:45; Stop 02/14/17 at 13:53; Status DC Heparin Sodium (Porcine) (Heparin Sodium) 1,550 unit PRN Q6HRS PRN IV FOR UFH LEVEL LESS THAN 0.2 Last administered on 02/13/17 20:22; Start 02/13/17 at 11:45 ; Stop 02/14/17 at 13:53; Status DC Heparin Sodium (Porcine) (Heparin Sodium) 800 unit PRN Q6HRS PRN IV FOR UFH LEVEL 0.2 - 0.29 Last administered on 02/14/17 02:34; Start 02/13/17 at 11:45; Stop 02/14/17 at 13:53; Status DC Warfarin Sodium (Coumadin Per Pharmacy) 1 each PRN DAILY PRN MC PER PROTOCOL; Start 02/13/17 at 11:45; Status Cancel Info (Anti-Coagulation Monitoring By Pharmacy) 1 each PRN DAILY PRN MC SEE COMMENTS; Start 02/13/17 at 13:00; Stop 02/14/17 at 16:28; Status DC Calcium Chloride 1,000 mg STK-MED ONCE IV ; Start 02/12/17 at 10:00; Stop at 16:27; Status DC Epinephrine HCl (EPINEPHrine SYRINGE) 1 mg STK-MED ONCE .ROUTE ; Start 02/12/17 at 10:00; Stop 02/13/17 at 16:27; Status DC Dextrose (Dextrose 50%-Water Syringe) 25 gm STK-MED ONCE IV ; Start 02/12/17 at 10:00; Stop 02/13/17 at 16:27; Status DC Sodium Bicarbonate 50 meq STK-MED ONCE .ROUTE ; Start 02/12/17 at 10:00; Stop 02/13/17 at 16:27; Status DC Methylprednisolone Sodium Succinate (SOLU-Medrol 125MG VIAL) 100 mg TID IV Last administered on 02/15/17 09:31; Start 02/14/17 at 18:00 Norepinephrine Bitartrate 250 ml @ 0 mls/hr CONT PRN IV SEE I/O RECORD; Start 02/14/17 at 15:30; Status Cancel Famotidine (Pepcid) 20 mg DAILY IVP Last administered on 02/15/17 09:31; Start 02/15/17 at 09:00 Amino Acids/ Glycerin/ Electrolytes 1,000 ml @ 80 mls/hr [id number] IV Last administered on 02/15/17 09:32; Start 02/15/17 at 08:45 Albumin Human 100 ml @ 100 mls/hr 1X ONCE IV Last administered on 02/15/17 09 :30; Start 02/15/17 at 08:45; Stop 02/15/17 at 09:44; Status DC Furosemide (Lasix) 40 mg 1X ONCE IVP ; Start 02/15/17 at 08:45; Stop 02/15/17 at 09:18; Status DC Piperacillin Sod/ Tazobactam Sod 2.25 gm/Sodium Chloride 50 ml @ 100 mls/hr Q6HRS IV ; Start 02/15/17 at 12:00 Daptomycin 340 mg/ Sodium Chloride 50 ml @ 100 mls/hr ONCE ONCE IV ; Start 02/15/17 at 11:15; Stop 02/15/17 at 11:44; Status DC Active Scripts Active Reported Latuda (Lurasidone Hcl) 20 Mg Tablet 20 Mg PO AFTRNOON Remeron (Mirtazapine) 15 Mg Tablet 1 Tab PO QHS Oxybutynin Chloride Er (Oxybutynin Chloride) 10 Mg Tab.er.24 1 Tab PO DAILY Multivitamins (Multivitamin) 1 Each Tablet 1 Tab PO DAILY Latuda (Lurasidone Hcl) 20 Mg Tablet 10 Mg PO AFTRNOON Lorazepam 0.5 Mg Tablet 1 Tab PO QEVNG Duoneb 0.5-3(2.5) Mg/3 Ml (Albuterol/Ipratropium) 3 Ml Ampul.neb 3 Ml NEB BID Duoneb 0.5-3(2.5) Mg/3 Ml (Albuterol/Ipratropium) 3 Ml Ampul.neb 3 Ml NEB Q4H PRN Calcium Carbonate 500 Mg Tablet 1,000 Mg PO Q4HRS PRN Nicotine Gum (Nicotine Polacrilex) 4 Mg Gum 4 Mg BC Milk Of Magnesia (Magnesium Hydroxide) 400 Mg/5 Ml Oral.susp 400 Mg PO Q3DAYS PRN Milk Of Magnesia (Magnesium Hydroxide) 400 Mg/5 Ml Oral.susp 400 Mg PO Q3DAYS PRN Lorazepam 1 Mg Tablet 1 Tab PO Q12HR PRN Ibuprofen 400 Mg Tablet 200 Mg PO Q8HRS PRN Cough Drops (Eucalyptus Oil/Menthol) 7 Mg Lozenge 7 Mg MM Q4HRS PRN Tylenol (Acetaminophen) 325 Mg Tablet 650 Mg PO Q4HRS PRN Lovaza ([facility]-3 Acid Ethyl Esters) 1 Gm Capsule 1 Cap PO QID Gabapentin 400 Mg Capsule 400 Mg PO QID Lorazepam 1 Mg Tablet 1 Tab PO BID Latuda (Lurasidone Hcl) 60 Mg Tablet 60 Mg PO BID Advair 100-50 Diskus (Fluticasone/Salmeterol) 1 Each Disk.w.dev 1 Puff IH BID Acetaminophen 325 Mg Capsule 650 Mg PO BID Vitamin D (Cholecalciferol (Vitamin D3)) 2,000 Unit Capsule 800 Unit PO DAILY Vitals/I & O Vital Sign - Last 24 Hours 02/14/17 02/14/17 02/14/17 02/14/17 14:00 15:00 16:00 16:00 Temp 99.0 99.0 Pulse 120 116 126 Resp B/P (MAP) 133/83 (100) Pulse Ox 98 98 98 O2 Delivery Ventilator Ventilator Mechanical Ventilator Ventilator 02/14/17 02/14/17 02/14/17 02/14/17 16:21 17:00 17:30 18:00 Pulse 124 126 122 B/P (MAP) 112/44 (66) 96/42 (60) 104/56 (72) Pulse Ox 99 97 99 O2 Delivery Ventilator Ventilator Ventilator 02/14/17 02/14/17 02/14/17 02/14/17 19:00 19:42 20:02 20:05 Temp 98.8 98.8 Pulse 108 115 115 Resp B/P (MAP) 126/87 (100) 117/80 (92) 117/80 (92) Pulse Ox 100 100 100 O2 Delivery Ventilator Ventilator Ventilator 02/14/17 02/14/17 02/14/17 02/14/17 20:09 21:00 22:00 23:00 Pulse 115 114 113 Resp B/P (MAP) 103/74 (84) 114/81 (92) 127/89 (102) Pulse Ox 100 100 100 O2 Delivery Mechanical Ventilator Ventilator Ventilator Ventilator 02/14/17 02/14/17 02/15/17 02/15/17 23:00 23:45 00:00 00:00 Pulse 114 113 114 Resp B/P (MAP) 126/88 (101) 104/74 (84) 105/76 (86) Pulse Ox 100 100 100 O2 Delivery Ventilator Ventilator Ventilator 02/15/17 02/15/17 02/15/17 02/15/17 00:00 01:00 01:00 01:15 Temp 99.0 99.0 Pulse 109 106 Resp B/P (MAP) 114/80 (91) 98/73 (81) Pulse Ox 100 100 100 O2 Delivery Mechanical Ventilator Ventilator Ventilator Ventilator 02/15/17 02/15/17 02/15/17 02/15/17 02:00 03:00 03:25 04:00 Temp 98.6 98.6 Pulse 104 108 108 Resp B/P (MAP) 100/72 (81) 106/70 (82) 100/75 (83) Pulse Ox 100 100 100 100 O2 Delivery Ventilator Ventilator Ventilator Ventilator 02/15/17 02/15/17 02/15/17 02/15/17 04:00 04:00 05:00 05:30 Pulse 108 105 103 Resp B/P (MAP) 100/75 (83) 107/84 (92) 138/78 (98) Pulse Ox 100 100 O2 Delivery Mechanical Ventilator Ventilator Ventilator 02/15/17 02/15/17 02/15/17 02/15/17 05:45 05:45 07:00 07:00 Temp 97.6 97.6 Pulse 103 100 100 Resp B/P (MAP) 102/70 (81) 101/71 (81) 114/71 (85) Pulse Ox 100 100 99 O2 Delivery Ventilator Ventilator Ventilator 02/15/17 02/15/17 02/15/17 02/15/17 07:11 08:35 08:43 08:58 Temp 97.9 97.9 Pulse 101 Resp B/P (MAP) 110/68 (82) 110/74 (86) Pulse Ox 100 99 100 O2 Delivery Ventilator Ventilator Ventilator 02/15/17 02/15/17 02/15/17 02/15/17 09:42 10:23 10:53 12:00 Pulse 100 B/P (MAP) 97/64 (75) 113/70 (84) Pulse Ox 100 O2 Delivery Ventilator Mechanical Ventilator 02/15/17 02/15/17 12:00 13:04 Pulse 100 B/P (MAP) 101/61 (74) Pulse Ox 100 O2 Delivery Ventilator Intake and Output 02/15/17 02/15/17 02/16/17 15:00 23:00 07:00 Output Total 15 ml Balance -15 ml PADDY GONZALES MD Feb 15, 2017 13:53
[2017-02-15] MEDS ORDERED: LIDOCAINE 1% / SOD BICARB 8.4% 20 ML VIAL. IJ ONE (15:45)
--- NOTE | 2017-02-15 16:17 | RAD ---
AP chest. HISTORY: Left IJ temporary dialysis catheter placement AP view was taken of the chest. There is a dialysis catheter on the left which extends to the superior vena cava in good position. Right central line is unchanged. Endotracheal tube is unchanged. NG tube extending into the stomach. There is no pneumothorax. There is hyperexpansion of the lungs suggesting COPD. No other change is noted. IMPRESSION: 1. Left dialysis catheter in good position. 2. No pneumothorax. 3. No other change. Electronically signed by: Ney Cole MD (02/15/2017 4:13 PM) [facility]
[2017-02-16] VITALS (18 sets, daily range): BP systolic 85–127; BP diastolic 46–77
[2017-02-16] MEDS: PIPERACILLIN/TAZOBACTAM 2.25 GM in IV NORMAL SALINE 50ML 50 ML IV SCH ×4 (00:07→21:08)
[2017-02-16 06:08] LABS: ALBUMIN 2.3 g/dL (3.4-5.0); ALBUMIN/GLOBULIN RATIO 0.7 (1.0-1.7); CALCIUM 7.5 mg/dL (8.5-10.1); CREATININE 4.5 mg/dL (0.6-1.0); GFR 12.3; PHOSPHORUS 5.8 mg/dL (2.6-4.7); POTASSIUM 5.1 mmol/L (3.5-5.1); TOTAL BILIRUBIN 2.2 mg/dL (0.2-1.0); TOTAL PROTEIN 5.5 g/dL (6.4-8.2)
[2017-02-16] MEDS ORDERED: IV NORMAL SALINE 1000ML BAG 1,000 ML IV PRN (06:38)
[2017-02-16] MEDS ORDERED: DIALYSIS PATIENT. MC PRN ×3 (06:45)
[2017-02-16] MEDS ORDERED: ALBUMIN HUMAN 25% 100 ML IV ONE (07:00)
[2017-02-16] MEDS: NOREPINEPHRIN PREMIX 250 ML IV PRN (07:18)
[2017-02-16 07:52] LABS: BASO % 0 % (0-3); EOS % 0 % (0-3); HEMATOCRIT 28.3 % (36.0-47.0); HEMOGLOBIN 9.4 g/dL (12.0-15.5); LYMPH # 0.4 x10^3/uL (1.0-4.8); LYMPH % 3 % (24-48); MEAN CORPUSCULAR HEMOGLOBIN 33 pg (25-35); MEAN CORPUSCULAR HGB CONC 33 g/dL (31-37); MEAN CORPUSCULAR VOLUME 99 fL (79-100); MONO % 1 % (0-9); NEUT % 96 % (31-73); PLATELET COUNT 118 x10^3/uL (140-400); RED BLOOD COUNT 2.86 x10^6/uL (3.50-5.40); RED CELL DISTRIBUTION WIDTH 14.2 % (11.5-14.5); WHITE BLOOD COUNT 16.1 x10^3/uL (4.0-11.0)
--- NOTE | 2017-02-16 07:55 | RAD ---
Portable chest, 2016: History: Respiratory failure Comparison is made to yesterday's study. The tip of the ET tube lies 7 cm above the ernst. A left jugular catheter extends to the level of the atriocaval junction. A right jugular catheter extends into the inferior aspect of the superior vena cava. An NG tube extends into the stomach. The heart size is normal. The pulmonary apices were not completely included on the current exam. There are prominent pulmonary markings, right greater than left, again suggesting pneumonia superimposed upon fibrosis. These findings are unchanged. Blunting of the lateral costophrenic angles is probably due to scarring. No new abnormality is detected. IMPRESSION: No significant change since yesterday's study.
--- NOTE | 2017-02-16 08:50 | PDOC ---
Infectious Disease Note Subjective Subjective s/p HDC placement. Now on HD Off sedation, minimally responsive per RN Intubated/vent. FiO2 40% Hypotension, Levophed gtt- now off Decrease UO. No fever ROS ROS unobtainable Vital Sign Vital Signs Vital Signs Date Time Temp Pulse Resp B/P (MAP) Pulse Ox O2 Delivery O2 Flow Rate FiO2 02/16/17 08:00 98.7 107 26 104/61 (75) 99 Ventilator 98.7 Physical Exam PHYSICAL EXAM GENERAL: Intubated HEENT: PERRL, OGT, ETT LUNGS: Clear HEART: S1S2, regular ABD: Soft, No grimace or guarding to palpation : Velazquez EXT: No edema, no cyanosis [employer]: Unresponsive verbal/tactile stimuli SKIN: No rash RIJ. (02/13). clean [facility]. (02/15). Labs Lab Laboratory Tests Test 02/15/17 11:35 02/16/17 05:20 Sodium Level 124 mmol/L (136-145) 124 mmol/L (136-145) White Blood Count 16.1 x10^3/uL (4.0-11.0) Red Blood Count 2.86 x10^6/uL (3.50-5.40) Hemoglobin 9.4 g/dL (12.0-15.5) Hematocrit 28.3 % (36.0-47.0) Mean Corpuscular Volume 99 fL (79-100) Mean Corpuscular Hemoglobin 33 pg (25-35) Mean Corpuscular Hemoglobin Concent 33 g/dL (31-37) Red Cell Distribution Width 14.2 % (11.5-14.5) Platelet Count 118 x10^3/uL (140-400) Neutrophils (%) (Auto) 96 % (31-73) Lymphocytes (%) (Auto) 3 % (24-48) Monocytes (%) (Auto) 1 % (0-9) Eosinophils (%) (Auto) 0 % (0-3) Basophils (%) (Auto) 0 % (0-3) Neutrophils # (Auto) 15.4 x10^3uL (1.8-7.7) Lymphocytes # (Auto) 0.4 x10^3/uL (1.0-4.8) Monocytes # (Auto) 0.2 x10^3/uL (0.0-1.1) Eosinophils # (Auto) 0.0 x10^3/uL (0.0-0.7) Basophils # (Auto) 0.0 x10^3/uL (0.0-0.2) Potassium Level 5.1 mmol/L (3.5-5.1) Chloride Level 91 mmol/L (98-107) Carbon Dioxide Level 18 mmol/L (21-32) Anion Gap 15 (6-14) Blood Urea Nitrogen 67 mg/dL (7-20) Creatinine 4.5 mg/dL (0.6-1.0) Estimated GFR (Cockcroft-Gault) 12.3 BUN/Creatinine Ratio 15 (6-20) Glucose Level 111 mg/dL (70-99) Calcium Level 7.5 mg/dL (8.5-10.1) Phosphorus Level 5.8 mg/dL (2.6-4.7) Magnesium Level 2.0 mg/dL (1.8-2.4) Total Bilirubin 2.2 mg/dL (0.2-1.0) Aspartate Amino Transf (AST/SGOT) 600 U/L (15-37) Alanine Aminotransferase (ALT/SGPT) 1568 U/L (14-59) Alkaline Phosphatase 72 U/L (46-116) Total Protein 5.5 g/dL (6.4-8.2) Albumin 2.3 g/dL (3.4-5.0) Albumin/Globulin Ratio 0.7 (1.0-1.7) Micro 02/15. BC pending 02/12. BLOOD CULT RESULT 1 Final MICS are expressed in micrograms per mL Antibiotic RSLT#1 Ciprofloxacin R Gentamicin S Levofloxacin R Linezolid S Nitrofurantoin S Oxacillin R Penicillin R Rifampin S Tetracycline S Trimethoprim/Sulfa S Vancomycin S Objective Assessment MRSA sepsis/bacteremia, POA. 02/12. -TTE no evidence veg; Repeat BC from 02/15 pending S/P Cardiac arrest Respiratory failure COPD Leukocytosis - better, on steroids DARYA. Now on HD Schizophrenia MRSA nares positive Hyponatremia Plan Plan of Care Dapto one dose, 02/15 cont Zosyn, dose adjusted for renal function Last dose vanc 02/13 8pm Repeat BC pending Critically ill Attending Co-Sign Attending Co-Sign The patient was seen and interviewed as well as examined at the bedside. The chart was reviewed. The case was discussed. Agree with the plan of care. SIRIA CARPENTER APRN Feb 16, 2017 08:50 JAVIER HUGHES MD Feb 16, 2017 11:31
[2017-02-16] MEDS: ASPIRIN 300 MG SUPP.RECT PR SCH (09:13)
[2017-02-16] MEDS: FAMOTIDINE 20 MG/2 ML VIAL IVP SCH (09:13)
[2017-02-16] MEDS: methylPREDNISolone SOD SUCC PF 125 MG/2 ML VIAL. IV SCH ×3 (09:13→21:08)
--- NOTE | 2017-02-16 10:08 | PDOC ---
PROGRESS NOTES Chief Complaint Chief Complaint cardiac arrest, asystole, unknown down time, s/p hypothermia Anoxic encephalopathy, off sedation x 2 days no response Normal corrected calcium OLIGURIC RENAL FAILURE noW NEW HD [facility] resident HX schiz by documentation Sepsis with organ failure, needing pressor History of Present Illness History of Present Illness Seen in ICU, intubated,on LEVOPHED Not sedated but not awake Withdraws only to pain New HD session yesterday UO was ZERO FRIDAY ENTRY: s/p hypothermia UNknown down time... Off sedation since yesterday - no response Grimaces minimally on sternal rub NO family, there is DPOA? palliative on case with SW NEeds to be DNR albumin 1,8, hypotensive CA 6.9 - corrected is normal PLAN: HD per renal PAlliative getting a hold of DPOA Supprotive meds NO nephrotoxins Dw [employer] Vitals Vitals Vital Signs Date Time Temp Pulse Resp B/P (MAP) Pulse Ox O2 Delivery O2 Flow Rate FiO2 02/16/17 08:29 100 Ventilator 02/16/17 08:00 98.7 107 26 104/61 (75) 98.7 Physical Exam General: Other (OBTUNDED) Heart: Regular rate, Normal S1, Normal S2, No murmurs, Gallops Lungs: Other (decrease bs) Abdomen: Normal bowel sounds, Soft, No tenderness, No hepatosplenomegaly, No masses Extremities: No clubbing, No cyanosis, No edema, Normal pulses, No tenderness/ swelling Skin: No breakdown, No significant lesion Labs LABS Laboratory Tests Test 02/15/17 11:35 02/16/17 05:20 Sodium Level 124 mmol/L (136-145) 124 mmol/L (136-145) White Blood Count 16.1 x10^3/uL (4.0-11.0) Red Blood Count 2.86 x10^6/uL (3.50-5.40) Hemoglobin 9.4 g/dL (12.0-15.5) Hematocrit 28.3 % (36.0-47.0) Mean Corpuscular Volume 99 fL (79-100) Mean Corpuscular Hemoglobin 33 pg (25-35) Mean Corpuscular Hemoglobin Concent 33 g/dL (31-37) Red Cell Distribution Width 14.2 % (11.5-14.5) Platelet Count 118 x10^3/uL (140-400) Neutrophils (%) (Auto) 96 % (31-73) Lymphocytes (%) (Auto) 3 % (24-48) Monocytes (%) (Auto) 1 % (0-9) Eosinophils (%) (Auto) 0 % (0-3) Basophils (%) (Auto) 0 % (0-3) Neutrophils # (Auto) 15.4 x10^3uL (1.8-7.7) Lymphocytes # (Auto) 0.4 x10^3/uL (1.0-4.8) Monocytes # (Auto) 0.2 x10^3/uL (0.0-1.1) Eosinophils # (Auto) 0.0 x10^3/uL (0.0-0.7) Basophils # (Auto) 0.0 x10^3/uL (0.0-0.2) Potassium Level 5.1 mmol/L (3.5-5.1) Chloride Level 91 mmol/L (98-107) Carbon Dioxide Level 18 mmol/L (21-32) Anion Gap 15 (6-14) Blood Urea Nitrogen 67 mg/dL (7-20) Creatinine 4.5 mg/dL (0.6-1.0) Estimated GFR (Cockcroft-Gault) 12.3 BUN/Creatinine Ratio 15 (6-20) Glucose Level 111 mg/dL (70-99) Calcium Level 7.5 mg/dL (8.5-10.1) Phosphorus Level 5.8 mg/dL (2.6-4.7) Magnesium Level 2.0 mg/dL (1.8-2.4) Total Bilirubin 2.2 mg/dL (0.2-1.0) Aspartate Amino Transf (AST/SGOT) 600 U/L (15-37) Alanine Aminotransferase (ALT/SGPT) 1568 U/L (14-59) Alkaline Phosphatase 72 U/L (46-116) Total Protein 5.5 g/dL (6.4-8.2) Albumin 2.3 g/dL (3.4-5.0) Albumin/Globulin Ratio 0.7 (1.0-1.7) Review of Systems Review of Systems intuabted Assessment and Plan Assessmemt and Plan Problems Medical Problems: (1) Cardiac arrest Status: Acute (2) Elevated troponin Status: Acute (3) Hyperkalemia Status: Acute (4) Hypoglycemia Status: Acute (5) Hyponatremia Status: Acute Problems: Comment Review of Relevant I have reviewed the following items reji (where applicable) has been applied. Labs Laboratory Tests Test 02/14/17 12:52 02/14/17 16:00 02/14/17 19:30 02/15/17 00:01 Sodium Level 126 mmol/L (136-145) 127 mmol/L (136-145) 126 mmol/L (136-145) 125 mmol/L (136-145) Potassium Level 4.4 mmol/L (3.5-5.1) 4.6 mmol/L (3.5-5.1) Chloride Level 94 mmol/L (98-107) 94 mmol/L (98-107) Carbon Dioxide Level 20 mmol/L (21-32) 20 mmol/L (21-32) Anion Gap 12 (6-14) 13 (6-14) Blood Urea Nitrogen 40 mg/dL (7-20) 41 mg/dL (7-20) Creatinine 2.6 mg/dL (0.6-1.0) 2.8 mg/dL (0.6-1.0) Estimated GFR (Cockcroft-Gault) 23.2 21.3 Glucose Level 185 mg/dL (70-99) 123 mg/dL (70-99) Calcium Level 7.1 mg/dL (8.5-10.1) 7.2 mg/dL (8.5-10.1) Phosphorus Level 4.5 mg/dL (2.6-4.7) 4.9 mg/dL (2.6-4.7) Magnesium Level 1.7 mg/dL (1.8-2.4) 1.7 mg/dL (1.8-2.4) White Blood Count 24.5 x10^3/uL (4.0-11.0) Red Blood Count 3.87 x10^6/uL (3.50-5.40) Hemoglobin 13.1 g/dL (12.0-15.5) Hematocrit 37.4 % (36.0-47.0) Mean Corpuscular Volume 96 fL (79-100) Mean Corpuscular Hemoglobin 34 pg (25-35) Mean Corpuscular Hemoglobin Concent 35 g/dL (31-37) Red Cell Distribution Width 13.5 % (11.5-14.5) Platelet Count 175 x10^3/uL (140-400) Prothrombin Time 25.7 SEC (11.7-14.0) Prothromb Time International Ratio 2.5 (0.8-1.1) Activated Partial Thromboplast Time 37 SEC (24-38) Test 02/15/17 05:20 02/15/17 07:08 02/15/17 11:35 02/16/17 05:20 Sodium Level 124 mmol/L (136-145) 124 mmol/L (136-145) 124 mmol/L (136-145) Potassium Level 4.6 mmol/L (3.5-5.1) 5.1 mmol/L (3.5-5.1) Chloride Level 92 mmol/L (98-107) 91 mmol/L (98-107) Carbon Dioxide Level 18 mmol/L (21-32) 18 mmol/L (21-32) Anion Gap 14 (6-14) 15 (6-14) Blood Urea Nitrogen 48 mg/dL (7-20) 67 mg/dL (7-20) Creatinine 3.4 mg/dL (0.6-1.0) 4.5 mg/dL (0.6-1.0) Estimated GFR (Cockcroft-Gault) 17.0 12.3 Glucose Level 153 mg/dL (70-99) 111 mg/dL (70-99) Calcium Level 6.9 mg/dL (8.5-10.1) 7.5 mg/dL (8.5-10.1) Phosphorus Level 4.7 mg/dL (2.6-4.7) 5.8 mg/dL (2.6-4.7) Magnesium Level 1.8 mg/dL (1.8-2.4) 2.0 mg/dL (1.8-2.4) Albumin 1.8 g/dL (3.4-5.0) 2.3 g/dL (3.4-5.0) O2 Saturation 97 % (92-99) Arterial Blood pH 7.25 (7.35-7.45) Arterial Blood pCO2 at Patient Temp 41 mmHg (35-46) Arterial Blood pO2 at Patient Temp 103 mmHg (75-108) Arterial Blood HCO3 17 mmol/L (21-28) Arterial Blood Base Excess -9 mmol/L (-3-3) FiO2 40 White Blood Count 16.1 x10^3/uL (4.0-11.0) Red Blood Count 2.86 x10^6/uL (3.50-5.40) Hemoglobin 9.4 g/dL (12.0-15.5) Hematocrit 28.3 % (36.0-47.0) Mean Corpuscular Volume 99 fL (79-100) Mean Corpuscular Hemoglobin 33 pg (25-35) Mean Corpuscular Hemoglobin Concent 33 g/dL (31-37) Red Cell Distribution Width 14.2 % (11.5-14.5) Platelet Count 118 x10^3/uL (140-400) Neutrophils (%) (Auto) 96 % (31-73) Lymphocytes (%) (Auto) 3 % (24-48) Monocytes (%) (Auto) 1 % (0-9) Eosinophils (%) (Auto) 0 % (0-3) Basophils (%) (Auto) 0 % (0-3) Neutrophils # (Auto) 15.4 x10^3uL (1.8-7.7) Lymphocytes # (Auto) 0.4 x10^3/uL (1.0-4.8) Monocytes # (Auto) 0.2 x10^3/uL (0.0-1.1) Eosinophils # (Auto) 0.0 x10^3/uL (0.0-0.7) Basophils # (Auto) 0.0 x10^3/uL (0.0-0.2) BUN/Creatinine Ratio 15 (6-20) Total Bilirubin 2.2 mg/dL (0.2-1.0) Aspartate Amino Transf (AST/SGOT) 600 U/L (15-37) Alanine Aminotransferase (ALT/SGPT) 1568 U/L (14-59) Alkaline Phosphatase 72 U/L (46-116) Total Protein 5.5 g/dL (6.4-8.2) Albumin/Globulin Ratio 0.7 (1.0-1.7) Laboratory Tests Test 02/15/17 11:35 02/16/17 05:20 Sodium Level 124 mmol/L (136-145) 124 mmol/L (136-145) White Blood Count 16.1 x10^3/uL (4.0-11.0) Red Blood Count 2.86 x10^6/uL (3.50-5.40) Hemoglobin 9.4 g/dL (12.0-15.5) Hematocrit 28.3 % (36.0-47.0) Mean Corpuscular Volume 99 fL (79-100) Mean Corpuscular Hemoglobin 33 pg (25-35) Mean Corpuscular Hemoglobin Concent 33 g/dL (31-37) Red Cell Distribution Width 14.2 % (11.5-14.5) Platelet Count 118 x10^3/uL (140-400) Neutrophils (%) (Auto) 96 % (31-73) Lymphocytes (%) (Auto) 3 % (24-48) Monocytes (%) (Auto) 1 % (0-9) Eosinophils (%) (Auto) 0 % (0-3) Basophils (%) (Auto) 0 % (0-3) Neutrophils # (Auto) 15.4 x10^3uL (1.8-7.7) Lymphocytes # (Auto) 0.4 x10^3/uL (1.0-4.8) Monocytes # (Auto) 0.2 x10^3/uL (0.0-1.1) Eosinophils # (Auto) 0.0 x10^3/uL (0.0-0.7) Basophils # (Auto) 0.0 x10^3/uL (0.0-0.2) Potassium Level 5.1 mmol/L (3.5-5.1) Chloride Level 91 mmol/L (98-107) Carbon Dioxide Level 18 mmol/L (21-32) Anion Gap 15 (6-14) Blood Urea Nitrogen 67 mg/dL (7-20) Creatinine 4.5 mg/dL (0.6-1.0) Estimated GFR (Cockcroft-Gault) 12.3 BUN/Creatinine Ratio 15 (6-20) Glucose Level 111 mg/dL (70-99) Calcium Level 7.5 mg/dL (8.5-10.1) Phosphorus Level 5.8 mg/dL (2.6-4.7) Magnesium Level 2.0 mg/dL (1.8-2.4) Total Bilirubin 2.2 mg/dL (0.2-1.0) Aspartate Amino Transf (AST/SGOT) 600 U/L (15-37) Alanine Aminotransferase (ALT/SGPT) 1568 U/L (14-59) Alkaline Phosphatase 72 U/L (46-116) Total Protein 5.5 g/dL (6.4-8.2) Albumin 2.3 g/dL (3.4-5.0) Albumin/Globulin Ratio 0.7 (1.0-1.7) Microbiology 02/12/17 Blood Culture - Final, Complete 02/12/17 Blood Culture Result 1 (ELIZABETH) - Final, Complete 02/12/17 Antimicrobic Susceptibility - Final, Complete 02/12/17 Urine Culture - Final, Complete 02/12/17 Urine Culture Result 1 (ELIZABETH) - Final, Complete Medications Current Medications Calcium Chloride 1,000 mg 1X ONCE IV Last administered on 02/12/17 15:35; Start 02/12/17 at 16:00; Stop 02/12/17 at 16:35; Status DC Dextrose (Dextrose 50%-Water Syringe) 25 gm 1X ONCE IV Last administered on 15:33; Start 02/12/17 at 16:00; Stop 02/12/17 at 16:35; Status DC Sodium Bicarbonate 50 meq 1X ONCE IV Last administered on 02/12/17 15:35; Start 02/12/17 at 16:00; Stop 02/12/17 at 16:35; Status DC Furosemide (Lasix) 40 mg 1X ONCE IVP Last administered on 02/12/17 16:42; Start 02/12/17 at 16:30; Stop 02/12/17 at 16:35; Status DC Sodium Chloride 1,000 ml @ 1,000 mls/hr Q1H IV Last administered on 02/12/17 15:50; Start 02/12/17 at 16:57; Stop 02/13/17 at 07:23; Status DC Fentanyl Citrate (Fentanyl 2ml Vial) 25 mcg PRN Q30MIN PRN IV SED; Start at 17:00 Lorazepam (Ativan) 1 mg PRN Q30MIN PRN IV SEDATION; Start 02/12/17 at 17:00 Fentanyl Citrate 30 ml @ 2.5 mls/hr CONT PRN PRN IV IVF Last administered on 03:27; Start 02/12/17 at 17:00 Propofol 100 ml @ 0 mls/hr CONT PRN IV SEE I/O RECORD; Start 02/12/17 at 17:00 Vecuronium [place] (Norcuron Bolus) DOSE AT 0.1 mg/kg PRN Q30MIN PRN IV SHIVERING Last administered on 02/12/17 19:46; Start 02/12/17 at 17:00; Stop 02/13 at 11:01; Status DC Meperidine HCl (Demerol) 12.5 mg PRN Q30MIN PRN IV SHIVERING; Start 02/12/17 at 17:00 Multi-Ingred Cream/Lotion/Oil/ Oint (Artificial Tears Eye Oint) 1 silvestre PRN Q6HRS PRN OU 0.5 INCH FOR DRY EYE; Start 02/12/17 at 17:00 Famotidine (Pepcid) 20 mg BID IVP Last administered on 02/14/17 10:47; Start at 09:00; Stop 02/14/17 at 16:23; Status DC Aspirin (Aspirin) 300 mg DAILY ME Last administered on 02/16/17 09:13; Start 02/13/17 at 09:00 Sodium Chloride (Normal Saline Flush) 3 ml QSHIFT PRN IV AFTER MEDS AND BLOOD DRAWS; Start 02/12/17 at 17:00 Acetaminophen (Tylenol) 650 mg Q6HRS NG Last administered on 02/13/17 05:51; Start 02/12/17 at 18:00; Stop 02/13/17 at 17:59; Status DC Acetaminophen (Acetaminophen Supp) 650 mg PRN Q6HRS PRN ME MILD PAIN / TEMP; Start 02/13/17 at 17:00 Acetaminophen (Tylenol) 650 mg PRN Q6HRS PRN NG MILD PAIN / TEMP; Start at 17:00 Info 1 ea DAILY PRN MC PER PROTOCOL; Start 02/14/17 at 17:00 Sodium Chloride 500 ml @ 500 mls/hr 1X ONCE IV Last administered on 02/12/17 16:30; Start 02/12/17 at 17:15; Stop 02/12/17 at 18:14; Status DC Sodium Chloride 500 ml @ 500 mls/hr 1X ONCE IV Last administered on 02/12/17 16:50; Start 02/12/17 at 17:15; Stop 02/12/17 at 18:14; Status DC Sodium Chloride 1,000 ml @ 100 mls/hr Q10H IV Last administered on 02/13/17 06 :36; Start 02/12/17 at 19:00; Stop 02/13/17 at 10:51; Status DC Famotidine (Pepcid) 20 mg 1X ONCE PO Last administered on 02/12/17 19:57; Start 02/12/17 at 17:30; Stop 02/12/17 at 17:34; Status DC Methylprednisolone Sodium Succinate (SOLU-Medrol 40MG VIAL) 100 mg TID IV Last administered on 02/14/17 11:01; Start 02/12/17 at 18:00; Stop 02/14/17 at 12:00; Status DC Sodium Chloride 1,000 ml @ 1,000 mls/hr 1X ONCE IV Last administered on 19:31; Start 02/12/17 at 18:15; Stop 02/12/17 at 19:14; Status DC Piperacillin Sod/ Tazobactam Sod (Zosyn Per Pharmacy) 1 each PRN DAILY PRN MC SEE COMMENTS; Start 02/12/17 at 19:15 Vancomycin HCl (Vanco Per Pharmacy) 1 each PRN DAILY PRN MC SEE COMMENTS Last administered on 02/13/17 16:50; Start 02/12/17 at 19:15; Stop 02/14/17 at 07:57; Status DC Piperacillin Sod/ Tazobactam Sod 3.375 gm/Sodium Chloride 50 ml @ 100 mls/hr Q6HRS IV Last administered on 02/15/17 05:58; Start 02/12/17 at 19:30; Stop 02/15 at 09:37; Status DC Vancomycin HCl 1 gm/Sodium Chloride 250 ml @ 250 mls/hr 1X ONCE IV Last administered on 02/12/17 20:00; Start 02/12/17 at 19:30; Stop 02/12/17 at 20:29; Status DC Sodium Bicarbonate 50 meq 1X ONCE IV Last administered on 02/12/17 19:59; Start 02/12/17 at 19:30; Stop 02/12/17 at 19:31; Status DC Norepinephrine Bitartrate 250 ml @ 0 mls/hr CONT PRN IV SEE I/O RECORD Last administered on 02/16/17 07:18; Start 02/12/17 at 19:30 Norepinephrine Bitartrate 250 ml @ As Directed STK-MED ONCE IV ; Start 02/12/17 at 19:25; Stop 02/12/17 at 19:26; Status DC Vancomycin HCl 750 mg/Sodium Chloride 250 ml @ 250 mls/hr Q24H IV Last administered on 02/13/17 20:34; Start 02/13/17 at 20:00; Stop 02/14/17 at 07:57; Status DC Vancomycin HCl 1 each 1X ONCE MC ; Start 02/14/17 at 19:30; Stop 02/14/17 at 19: 31; Status Cancel Sodium Chloride 1,000 ml @ 1,000 mls/hr 1X ONCE IV Last administered on 05:05; Start 02/13/17 at 04:45; Stop 02/13/17 at 05:44; Status DC Sodium Chloride 1,000 ml @ 1,000 mls/hr 1X ONCE IV Last administered on 05:35; Start 02/13/17 at 05:30; Stop 02/13/17 at 06:29; Status DC Magnesium Sulfate/ Dextrose 50 ml @ 25 mls/hr PRN DAILY PRN IV for Mag < 1.7 on am labs; Start 02/13/17 at 10:45 Dextrose/Sodium Chloride 1,000 ml @ 75 mls/hr [id number] IV Last administered on 02/15/17 01:52; Start 02/13/17 at 11:00; Stop 02/15/17 at 08:52; Status DC Vecuronium [place] (Norcuron Bolus) 5 mg PRN Q30MIN PRN IV SHIVERING; Start 02/13/17 at 11:15 Lidocaine/Sodium Bicarbonate (Buffered Lidocaine 1%) 3 ml 1X ONCE IJ Last administered on 02/13/17 11:40; Start 02/13/17 at 11:15; Stop 02/13/17 at 11:26; Status DC Heparin Sodium/ Sodium Chloride 60 unit 1X ONCE IV Last administered on 11:40; Start 02/13/17 at 11:15; Stop 02/13/17 at 11:26; Status DC Lidocaine/Sodium Bicarbonate (Buffered Lidocaine 1%) 20 ml STK-MED ONCE IJ ; Start 02/13/17 at 11:22; Stop 02/13/17 at 11:29; Status DC Heparin Sodium (Porcine) (Heparin Sodium) 2,075 unit 1X ONCE IV Last administered on 02/13/17 12:45; Start 02/13/17 at 11:45; Stop 02/13/17 at 11:56; Status DC Heparin Sodium/ Dextrose 500 ml @ 16.5 mls/hr CONT PRN IV SEE I/O RECORD Last administered on 02/13/17 12:47; Start 02/13/17 at 11:45; Stop 02/14/17 at 13:53; Status DC Heparin Sodium (Porcine) (Heparin Sodium) 1,550 unit PRN Q6HRS PRN IV FOR UFH LEVEL LESS THAN 0.2 Last administered on 02/13/17 20:22; Start 02/13/17 at 11:45 ; Stop 02/14/17 at 13:53; Status DC Heparin Sodium (Porcine) (Heparin Sodium) 800 unit PRN Q6HRS PRN IV FOR UFH LEVEL 0.2 - 0.29 Last administered on 02/14/17 02:34; Start 02/13/17 at 11:45; Stop 02/14/17 at 13:53; Status DC Warfarin Sodium (Coumadin Per Pharmacy) 1 each PRN DAILY PRN MC PER PROTOCOL; Start 02/13/17 at 11:45; Status Cancel Info (Anti-Coagulation Monitoring By Pharmacy) 1 each PRN DAILY PRN MC SEE COMMENTS; Start 02/13/17 at 13:00; Stop 02/14/17 at 16:28; Status DC Calcium Chloride 1,000 mg STK-MED ONCE IV ; Start 02/12/17 at 10:00; Stop at 16:27; Status DC Epinephrine HCl (EPINEPHrine SYRINGE) 1 mg STK-MED ONCE .ROUTE ; Start 02/12/17 at 10:00; Stop 02/13/17 at 16:27; Status DC Dextrose (Dextrose 50%-Water Syringe) 25 gm STK-MED ONCE IV ; Start 02/12/17 at 10:00; Stop 02/13/17 at 16:27; Status DC Sodium Bicarbonate 50 meq STK-MED ONCE .ROUTE ; Start 02/12/17 at 10:00; Stop 02/13/17 at 16:27; Status DC Methylprednisolone Sodium Succinate (SOLU-Medrol 125MG VIAL) 100 mg TID IV Last administered on 02/16/17 09:13; Start 02/14/17 at 18:00 Norepinephrine Bitartrate 250 ml @ 0 mls/hr CONT PRN IV SEE I/O RECORD; Start 02/14/17 at 15:30; Status Cancel Famotidine (Pepcid) 20 mg DAILY IVP Last administered on 02/16/17 09:13; Start 02/15/17 at 09:00 Amino Acids/ Glycerin/ Electrolytes 1,000 ml @ 80 mls/hr [id number] IV Last administered on 02/15/17 09:32; Start 02/15/17 at 08:45; Stop 02/15/17 at 15:14; Status DC Albumin Human 100 ml @ 100 mls/hr 1X ONCE IV Last administered on 02/15/17 09 :30; Start 02/15/17 at 08:45; Stop 02/15/17 at 09:44; Status DC Furosemide (Lasix) 40 mg 1X ONCE IVP ; Start 02/15/17 at 08:45; Stop 02/15/17 at 09:18; Status DC Piperacillin Sod/ Tazobactam Sod 2.25 gm/Sodium Chloride 50 ml @ 100 mls/hr Q6HRS IV Last administered on 02/16/17 05:52; Start 02/15/17 at 12:00; Stop 03/25 at 09:17; Status DC Daptomycin 340 mg/ Sodium Chloride 50 ml @ 100 mls/hr ONCE ONCE IV Last administered on 02/15/17 11:15; Start 02/15/17 at 11:15; Stop 02/15/17 at 11:44; Status DC Dextrose/Sodium Chloride 1,000 ml @ 40 mls/hr Q24H IV Last administered on 02/15 15:57; Start 02/15/17 at 15:15 Lidocaine/Sodium Bicarbonate (Buffered Lidocaine 1%) 3 ml 1X ONCE IJ Last administered on 9/9/17at 16:00; Start 02/15/17 at 15:45; Stop 02/15/17 at 15:46; Status DC Heparin Sodium/ Sodium Chloride 6,000 unit 1X ONCE IV ; Start 02/15/17 at 15:45 ; Stop 02/15/17 at 15:46; Status DC Sodium Chloride 1,000 ml @ 1,000 mls/hr Q1H PRN IV hypotension; Start 02/16/17 at 06:38; Stop 02/16/17 at 12:37 Info (PHARMACY MONITORING -- do not chart) 1 each PRN DAILY PRN MC SEE COMMENTS ; Start 02/16/17 at 06:45 Info (PHARMACY MONITORING -- do not chart) 1 each PRN DAILY PRN MC SEE COMMENTS ; Start 02/16/17 at 06:45; Stop 02/16/17 at 09:19; Status DC Info (PHARMACY MONITORING -- do not chart) 1 each PRN DAILY PRN MC SEE COMMENTS ; Start 02/16/17 at 06:45; Stop 02/16/17 at 09:19; Status DC Albumin Human 100 ml @ 100 mls/hr 1X ONCE IV Last administered on 02/16/17 07:18; Start 02/16/17 at 07:00; Stop 02/16/17 at 07:59; Status DC Piperacillin Sod/ Tazobactam Sod 2.25 gm/Sodium Chloride 50 ml @ 100 mls/hr Q8HRS IV ; Start 02/16/17 at 14:00 Active Scripts Active Reported Latuda (Lurasidone Hcl) 20 Mg Tablet 20 Mg PO AFTRNOON Remeron (Mirtazapine) 15 Mg Tablet 1 Tab PO QHS Oxybutynin Chloride Er (Oxybutynin Chloride) 10 Mg Tab.er.24 1 Tab PO DAILY Multivitamins (Multivitamin) 1 Each Tablet 1 Tab PO DAILY Latuda (Lurasidone Hcl) 20 Mg Tablet 10 Mg PO AFTRNOON Lorazepam 0.5 Mg Tablet 1 Tab PO QEVNG Duoneb 0.5-3(2.5) Mg/3 Ml (Albuterol/Ipratropium) 3 Ml Ampul.neb 3 Ml NEB BID Duoneb 0.5-3(2.5) Mg/3 Ml (Albuterol/Ipratropium) 3 Ml Ampul.neb 3 Ml NEB Q4H PRN Calcium Carbonate 500 Mg Tablet 1,000 Mg PO Q4HRS PRN Nicotine Gum (Nicotine Polacrilex) 4 Mg Gum 4 Mg BC Milk Of Magnesia (Magnesium Hydroxide) 400 Mg/5 Ml Oral.susp 400 Mg PO Q3DAYS PRN Milk Of Magnesia (Magnesium Hydroxide) 400 Mg/5 Ml Oral.susp 400 Mg PO Q3DAYS PRN Lorazepam 1 Mg Tablet 1 Tab PO Q12HR PRN Ibuprofen 400 Mg Tablet 200 Mg PO Q8HRS PRN Cough Drops (Eucalyptus Oil/Menthol) 7 Mg Lozenge 7 Mg MM Q4HRS PRN Tylenol (Acetaminophen) 325 Mg Tablet 650 Mg PO Q4HRS PRN Lovaza ([place]-3 Acid Ethyl Esters) 1 Gm Capsule 1 Cap PO QID Gabapentin 400 Mg Capsule 400 Mg PO QID Lorazepam 1 Mg Tablet 1 Tab PO BID Latuda (Lurasidone Hcl) 60 Mg Tablet 60 Mg PO BID Advair 100-50 Diskus (Fluticasone/Salmeterol) 1 Each Disk.w.dev 1 Puff IH BID Acetaminophen 325 Mg Capsule 650 Mg PO BID Vitamin D (Cholecalciferol (Vitamin D3)) 2,000 Unit Capsule 800 Unit PO DAILY Vitals/I & O Vital Sign - Last 24 Hours 02/15/17 02/15/17 02/15/17 02/15/17 10:23 10:53 12:00 12:00 Pulse 100 B/P (MAP) 113/70 (84) 101/61 (74) Pulse Ox 100 O2 Delivery Ventilator Mechanical Ventilator 02/15/17 02/15/17 02/15/17 02/15/17 12:00 13:00 13:04 14:26 Temp 97.8 97.6 97.8 97.6 Pulse 100 88 89 Resp 26 B/P (MAP) 101/61 (74) 98/60 (73) 101/61 (74) Pulse Ox 100 O2 Delivery Ventilator Ventilator Ventilator 02/15/17 02/15/17 02/15/17 02/15/17 15:30 15:32 16:00 16:00 Temp 97.6 97.6 Pulse 89 90 Resp 26 B/P (MAP) 100/61 (74) 92/58 (69) 92/51 (65) Pulse Ox 100 100 O2 Delivery Ventilator Ventilator 02/15/17 02/15/17 02/15/17 02/15/17 16:23 16:57 17:00 18:00 Pulse 91 89 Resp B/P (MAP) 93/56 (68) 83/58 (66) Pulse Ox 100 100 100 O2 Delivery Mechanical Ventilator Ventilator Ventilator Ventilator 02/15/17 02/15/17 02/15/17 02/15/17 19:00 20:00 20:00 20:50 Temp 96.3 96.3 Pulse 92 90 Resp B/P (MAP) 86/57 (67) 89/57 (68) Pulse Ox 100 100 100 O2 Delivery Ventilator Mechanical Ventilator Ventilator Ventilator 02/15/17 02/15/17 02/15/17 02/15/17 21:00 22:00 23:00 23:24 Pulse 86 85 90 Resp B/P (MAP) 85/64 (71) 94/56 (69) 91/53 (66) Pulse Ox 100 100 100 100 O2 Delivery Ventilator Ventilator Ventilator Ventilator 02/15/17 02/16/17 02/16/17 02/16/17 23:59 00:00 01:00 02:00 Temp 97.9 97.9 Pulse 90 90 92 Resp B/P (MAP) 93/58 (70) 87/46 (60) 109/66 (80) Pulse Ox 100 100 100 O2 Delivery Mechanical Ventilator Ventilator Ventilator Ventilator 02/16/17 02/16/17 02/16/17 02/16/17 02:31 03:00 04:00 04:00 Temp 97.8 97.8 Pulse 90 93 B/P (MAP) 86/47 (60) 103/61 (75) Pulse Ox 100 100 98 O2 Delivery Ventilator Ventilator Ventilator Mechanical Ventilator 02/16/17 02/16/17 02/16/17 02/16/17 04:36 05:00 05:57 06:00 Pulse 91 103 B/P (MAP) 95/56 (69) 97/58 (71) Pulse Ox 100 100 100 100 O2 Delivery Ventilator Ventilator Ventilator Ventilator 02/16/17 02/16/17 02/16/17 02/16/17 07:00 08:00 08:00 08:29 Temp 98.7 98.7 98.7 98.7 Pulse 102 107 Resp 26 26 B/P (MAP) 85/56 (66) 104/61 (75) Pulse Ox 100 99 100 O2 Delivery Ventilator Mechanical Ventilator Ventilator Ventilator Intake and Output 02/16/17 02/16/17 02/17/17 15:00 23:00 07:00 Intake Total 0 ml Balance 0 ml BERONICA VILLATORO MD Feb 16, 2017 10:08
[2017-02-16 10:40] LABS: HCO3 ABG 26 mmol/L (21-28); PCO2 ABG 51 mmHg (35-46); PH ABG 7.32 (7.35-7.45); PO2 ABG 80 mmHg (75-108)
[2017-02-16 10:41] LABS: FIO2 ABG 40; SAT O2 ABG 95 % (92-99)
--- NOTE | 2017-02-16 11:40 | PDOC ---
PULMONARY PROGRESS NOTES Subjective REMAINS INTUBATED/ OFF NARCOTICS/ SEDATIVES, WITHDRAWS TO PAIN OFF LEVO S/P HD TODAY Vitals Vital Signs Date Time Temp Pulse Resp B/P (MAP) Pulse Ox O2 Delivery O2 Flow Rate FiO2 02/16/17 10:06 100 Ventilator 02/16/17 08:00 98.7 107 26 104/61 (75) 98.7 Lungs: Other (decrease bs) Cardiovascular: S1 Abdomen: Soft Extremities: Other (cold , decrease pulses) Labs Laboratory Tests Test 02/14/17 12:52 02/14/17 16:00 02/14/17 19:30 02/15/17 00:01 Sodium Level 126 mmol/L (136-145) 127 mmol/L (136-145) 126 mmol/L (136-145) 125 mmol/L (136-145) Potassium Level 4.4 mmol/L (3.5-5.1) 4.6 mmol/L (3.5-5.1) Chloride Level 94 mmol/L (98-107) 94 mmol/L (98-107) Carbon Dioxide Level 20 mmol/L (21-32) 20 mmol/L (21-32) Anion Gap 12 (6-14) 13 (6-14) Blood Urea Nitrogen 40 mg/dL (7-20) 41 mg/dL (7-20) Creatinine 2.6 mg/dL (0.6-1.0) 2.8 mg/dL (0.6-1.0) Estimated GFR (Cockcroft-Gault) 23.2 21.3 Glucose Level 185 mg/dL (70-99) 123 mg/dL (70-99) Calcium Level 7.1 mg/dL (8.5-10.1) 7.2 mg/dL (8.5-10.1) Phosphorus Level 4.5 mg/dL (2.6-4.7) 4.9 mg/dL (2.6-4.7) Magnesium Level 1.7 mg/dL (1.8-2.4) 1.7 mg/dL (1.8-2.4) White Blood Count 24.5 x10^3/uL (4.0-11.0) Red Blood Count 3.87 x10^6/uL (3.50-5.40) Hemoglobin 13.1 g/dL (12.0-15.5) Hematocrit 37.4 % (36.0-47.0) Mean Corpuscular Volume 96 fL (79-100) Mean Corpuscular Hemoglobin 34 pg (25-35) Mean Corpuscular Hemoglobin Concent 35 g/dL (31-37) Red Cell Distribution Width 13.5 % (11.5-14.5) Platelet Count 175 x10^3/uL (140-400) Prothrombin Time 25.7 SEC (11.7-14.0) Prothromb Time International Ratio 2.5 (0.8-1.1) Activated Partial Thromboplast Time 37 SEC (24-38) Test 02/15/17 05:20 02/15/17 07:08 02/15/17 11:35 02/16/17 05:20 Sodium Level 124 mmol/L (136-145) 124 mmol/L (136-145) 124 mmol/L (136-145) Potassium Level 4.6 mmol/L (3.5-5.1) 5.1 mmol/L (3.5-5.1) Chloride Level 92 mmol/L (98-107) 91 mmol/L (98-107) Carbon Dioxide Level 18 mmol/L (21-32) 18 mmol/L (21-32) Anion Gap 14 (6-14) 15 (6-14) Blood Urea Nitrogen 48 mg/dL (7-20) 67 mg/dL (7-20) Creatinine 3.4 mg/dL (0.6-1.0) 4.5 mg/dL (0.6-1.0) Estimated GFR (Cockcroft-Gault) 17.0 12.3 Glucose Level 153 mg/dL (70-99) 111 mg/dL (70-99) Calcium Level 6.9 mg/dL (8.5-10.1) 7.5 mg/dL (8.5-10.1) Phosphorus Level 4.7 mg/dL (2.6-4.7) 5.8 mg/dL (2.6-4.7) Magnesium Level 1.8 mg/dL (1.8-2.4) 2.0 mg/dL (1.8-2.4) Albumin 1.8 g/dL (3.4-5.0) 2.3 g/dL (3.4-5.0) O2 Saturation 97 % (92-99) Arterial Blood pH 7.25 (7.35-7.45) Arterial Blood pCO2 at Patient Temp 41 mmHg (35-46) Arterial Blood pO2 at Patient Temp 103 mmHg (75-108) Arterial Blood HCO3 17 mmol/L (21-28) Arterial Blood Base Excess -9 mmol/L (-3-3) FiO2 40 White Blood Count 16.1 x10^3/uL (4.0-11.0) Red Blood Count 2.86 x10^6/uL (3.50-5.40) Hemoglobin 9.4 g/dL (12.0-15.5) Hematocrit 28.3 % (36.0-47.0) Mean Corpuscular Volume 99 fL (79-100) Mean Corpuscular Hemoglobin 33 pg (25-35) Mean Corpuscular Hemoglobin Concent 33 g/dL (31-37) Red Cell Distribution Width 14.2 % (11.5-14.5) Platelet Count 118 x10^3/uL (140-400) Neutrophils (%) (Auto) 96 % (31-73) Lymphocytes (%) (Auto) 3 % (24-48) Monocytes (%) (Auto) 1 % (0-9) Eosinophils (%) (Auto) 0 % (0-3) Basophils (%) (Auto) 0 % (0-3) Neutrophils # (Auto) 15.4 x10^3uL (1.8-7.7) Lymphocytes # (Auto) 0.4 x10^3/uL (1.0-4.8) Monocytes # (Auto) 0.2 x10^3/uL (0.0-1.1) Eosinophils # (Auto) 0.0 x10^3/uL (0.0-0.7) Basophils # (Auto) 0.0 x10^3/uL (0.0-0.2) BUN/Creatinine Ratio 15 (6-20) Total Bilirubin 2.2 mg/dL (0.2-1.0) Aspartate Amino Transf (AST/SGOT) 600 U/L (15-37) Alanine Aminotransferase (ALT/SGPT) 1568 U/L (14-59) Alkaline Phosphatase 72 U/L (46-116) Total Protein 5.5 g/dL (6.4-8.2) Albumin/Globulin Ratio 0.7 (1.0-1.7) Test 02/16/17 08:00 O2 Saturation 95 % (92-99) Arterial Blood pH 7.32 (7.35-7.45) Arterial Blood pCO2 at Patient Temp 51 mmHg (35-46) Arterial Blood pO2 at Patient Temp 80 mmHg (75-108) Arterial Blood HCO3 26 mmol/L (21-28) Arterial Blood Base Excess -1 mmol/L (-3-3) FiO2 40 Laboratory Tests Test 02/16/17 05:20 02/16/17 08:00 White Blood Count 16.1 x10^3/uL (4.0-11.0) Red Blood Count 2.86 x10^6/uL (3.50-5.40) Hemoglobin 9.4 g/dL (12.0-15.5) Hematocrit 28.3 % (36.0-47.0) Mean Corpuscular Volume 99 fL (79-100) Mean Corpuscular Hemoglobin 33 pg (25-35) Mean Corpuscular Hemoglobin Concent 33 g/dL (31-37) Red Cell Distribution Width 14.2 % (11.5-14.5) Platelet Count 118 x10^3/uL (140-400) Neutrophils (%) (Auto) 96 % (31-73) Lymphocytes (%) (Auto) 3 % (24-48) Monocytes (%) (Auto) 1 % (0-9) Eosinophils (%) (Auto) 0 % (0-3) Basophils (%) (Auto) 0 % (0-3) Neutrophils # (Auto) 15.4 x10^3uL (1.8-7.7) Lymphocytes # (Auto) 0.4 x10^3/uL (1.0-4.8) Monocytes # (Auto) 0.2 x10^3/uL (0.0-1.1) Eosinophils # (Auto) 0.0 x10^3/uL (0.0-0.7) Basophils # (Auto) 0.0 x10^3/uL (0.0-0.2) Sodium Level 124 mmol/L (136-145) Potassium Level 5.1 mmol/L (3.5-5.1) Chloride Level 91 mmol/L (98-107) Carbon Dioxide Level 18 mmol/L (21-32) Anion Gap 15 (6-14) Blood Urea Nitrogen 67 mg/dL (7-20) Creatinine 4.5 mg/dL (0.6-1.0) Estimated GFR (Cockcroft-Gault) 12.3 BUN/Creatinine Ratio 15 (6-20) Glucose Level 111 mg/dL (70-99) Calcium Level 7.5 mg/dL (8.5-10.1) Phosphorus Level 5.8 mg/dL (2.6-4.7) Magnesium Level 2.0 mg/dL (1.8-2.4) Total Bilirubin 2.2 mg/dL (0.2-1.0) Aspartate Amino Transf (AST/SGOT) 600 U/L (15-37) Alanine Aminotransferase (ALT/SGPT) 1568 U/L (14-59) Alkaline Phosphatase 72 U/L (46-116) Total Protein 5.5 g/dL (6.4-8.2) Albumin 2.3 g/dL (3.4-5.0) Albumin/Globulin Ratio 0.7 (1.0-1.7) O2 Saturation 95 % (92-99) Arterial Blood pH 7.32 (7.35-7.45) Arterial Blood pCO2 at Patient Temp 51 mmHg (35-46) Arterial Blood pO2 at Patient Temp 80 mmHg (75-108) Arterial Blood HCO3 26 mmol/L (21-28) Arterial Blood Base Excess -1 mmol/L (-3-3) FiO2 40 Medications Active Scripts Medications Dose Route/Sig Max Daily Dose Days Date Category Latuda (Lurasidone Hcl) 20 Mg Tablet 20 Mg PO AFTRNOON 02/12/17 Reported Remeron (Mirtazapine) 15 Mg Tablet 1 Tab PO QHS 02/12/17 Reported Oxybutynin Chloride Er (Oxybutynin Chloride) 10 Mg Tab.er.24 1 Tab PO DAILY 02/12/17 Reported Multivitamins (Multivitamin) 1 Each Tablet 1 Tab PO DAILY 02/12/17 Reported Latuda (Lurasidone Hcl) 20 Mg Tablet 10 Mg PO AFTRNOON 02/12/17 Reported Lorazepam 0.5 Mg Tablet 1 Tab PO QEVNG 02/12/17 Reported Duoneb 0.5-3(2.5) Mg/3 Ml (Albuterol/Ipratropium) 3 Ml Ampul.neb 3 Ml NEB BID 02/12/17 Reported Duoneb 0.5-3(2.5) Mg/3 Ml (Albuterol/Ipratropium) 3 Ml Ampul.neb 3 Ml NEB Q4H PRN 02/12/17 Reported Calcium Carbonate 500 Mg Tablet 1,000 Mg PO Q4HRS PRN 02/12/17 Reported Nicotine Gum (Nicotine Polacrilex) 4 Mg Gum 4 Mg BC 02/12/17 Reported Milk Of Magnesia (Magnesium Hydroxide) 400 Mg/5 Ml Oral.susp 400 Mg PO Q3DAYS PRN 02/12/17 Reported Milk Of Magnesia (Magnesium Hydroxide) 400 Mg/5 Ml Oral.susp 400 Mg PO Q3DAYS PRN 02/12/17 Reported Lorazepam 1 Mg Tablet 1 Tab PO Q12HR PRN 02/12/17 Reported Ibuprofen 400 Mg Tablet 200 Mg PO Q8HRS PRN 02/12/17 Reported Cough Drops (Eucalyptus Oil/Menthol) 7 Mg Lozenge 7 Mg MM Q4HRS PRN 02/12/17 Reported Tylenol (Acetaminophen) 325 Mg Tablet 650 Mg PO Q4HRS PRN 02/12/17 Reported Lovaza (Mershon-3 Acid Ethyl Esters) 1 Gm Capsule 1 Cap PO QID 02/12/17 Reported Gabapentin 400 Mg Capsule 400 Mg PO QID 02/12/17 Reported Lorazepam 1 Mg Tablet 1 Tab PO BID 02/12/17 Reported Latuda (Lurasidone Hcl) 60 Mg Tablet 60 Mg PO BID 02/12/17 Reported Advair 100-50 Diskus (Fluticasone/Salmeterol) 1 Each Disk.w.dev 1 Puff IH BID 02/12/17 Reported Acetaminophen 325 Mg Capsule 650 Mg PO BID 02/12/17 Reported Vitamin D (Cholecalciferol (Vitamin D3)) 2,000 Unit Capsule 800 Unit PO DAILY 02/12/17 Reported Comments cxr 02/16 MILD INTERSTITIAL CHF Impression . 1. Acute respiratory failure. The etiology of respiratory failure is multifactorial and includes a combination of cardiac arrest,acute exacerbation of chronic obstructive pulmonary disease, possible effect of benzodiazepine which she is taking chronically, and possible hyponatremia contributing to the encephalopathy. 2. Acute encephalopathy. This is again multifactorial, most likely metabolic and toxic. 3. Status post cardiac arrest. She had asystole. She had CPR for 20 minutes and she was down for 2 hours. Possibility of anoxic brain injury cannot be ruled out. 4. Abnormal echocardiogram with ejection fraction of 35%. She also has diastolic dysfunction and she also has right ventricular dilatation. This is consistent with biventricular failure. Clinically, I suspect less likely thromboembolic disease. RV dilatation related to her severe chronic obstructive pulmonary disease. 5. Hyponatremia, being corrected. 6. Abnormal LFTs secondary to hypoperfusion. 7. Suspected anoxic encephalopathy. 8. Acute renal failure. 9. shock, combination of cardiogenic,septic/ OFF PRESSOR Plan . 1. Continue with present assist control mode and make necessary adjustment based on ABGs.rate increased today 2. Continue broad-spectrum antibiotics. 3. Marked lactic acidosis related to hypoperfusion from cardiac arrest / IMPROVED 4. HD 5. DVT prophylaxis. still has high INR 6. Stress ulcer prophylaxis with Pepcid. 7. off vasopressor. 8. venous Dopplers of lower extremities neg for DVT 9. I would recommend not to do CPR if she codes/ no family 10. enteral nutrition 10. Discussed with RN and RT. NEVA FALCON MD Feb 16, 2017 11:40
--- NOTE | 2017-02-16 12:23 | PDOC ---
PROGRESS NOTES Subjective Subjective SEEN IN FOLLOW UP OF ARF Objective Objective Vital Signs Date Time Temp Pulse Resp B/P (MAP) Pulse Ox O2 Delivery O2 Flow Rate FiO2 02/16/17 12:12 100 Ventilator 02/16/17 08:00 98.7 107 26 104/61 (75) 98.7 Intake and Output 02/17/17 07:00 Intake Total 0 ml Output Total 5 ml Balance -5 ml Tube Feeding 0 ml Output Urine Total 5 ml Physical Exam Abdomen: Normal bowel sounds, Soft, No tenderness, No hepatosplenomegaly, No masses Heart: Regular rate, Normal S1, Normal S2, No murmurs, Gallops General: Other (SEDATE ON VENT) Lungs: Clear to auscultation, Normal air movement, Other (ON VENT) Diagnosis RENAL FAILURE: Acute (Acute tubular necrosis) Assessment Assessment Problems Medical Problems: (1) Cardiac arrest Status: Acute (2) Elevated troponin Status: Acute (3) Hyperkalemia Status: Acute (4) Hypoglycemia Status: Acute (5) Hyponatremia Status: Acute Plan Plan of Care DIALYSIS TODAY AND TOLERATED WELL. FOR DIALYSIS TOMORROW. ? PALLIATIVE CARE Comment Review of Relevant I have reviewed the following items reji (where applicable) has been applied. Labs Laboratory Tests Test 02/14/17 12:52 02/14/17 16:00 02/14/17 19:30 02/15/17 00:01 Sodium Level 126 mmol/L (136-145) 127 mmol/L (136-145) 126 mmol/L (136-145) 125 mmol/L (136-145) Potassium Level 4.4 mmol/L (3.5-5.1) 4.6 mmol/L (3.5-5.1) Chloride Level 94 mmol/L (98-107) 94 mmol/L (98-107) Carbon Dioxide Level 20 mmol/L (21-32) 20 mmol/L (21-32) Anion Gap 12 (6-14) 13 (6-14) Blood Urea Nitrogen 40 mg/dL (7-20) 41 mg/dL (7-20) Creatinine 2.6 mg/dL (0.6-1.0) 2.8 mg/dL (0.6-1.0) Estimated GFR (Cockcroft-Gault) 23.2 21.3 Glucose Level 185 mg/dL (70-99) 123 mg/dL (70-99) Calcium Level 7.1 mg/dL (8.5-10.1) 7.2 mg/dL (8.5-10.1) Phosphorus Level 4.5 mg/dL (2.6-4.7) 4.9 mg/dL (2.6-4.7) Magnesium Level 1.7 mg/dL (1.8-2.4) 1.7 mg/dL (1.8-2.4) White Blood Count 24.5 x10^3/uL (4.0-11.0) Red Blood Count 3.87 x10^6/uL (3.50-5.40) Hemoglobin 13.1 g/dL (12.0-15.5) Hematocrit 37.4 % (36.0-47.0) Mean Corpuscular Volume 96 fL (79-100) Mean Corpuscular Hemoglobin 34 pg (25-35) Mean Corpuscular Hemoglobin Concent 35 g/dL (31-37) Red Cell Distribution Width 13.5 % (11.5-14.5) Platelet Count 175 x10^3/uL (140-400) Prothrombin Time 25.7 SEC (11.7-14.0) Prothromb Time International Ratio 2.5 (0.8-1.1) Activated Partial Thromboplast Time 37 SEC (24-38) Test 02/15/17 05:20 02/15/17 07:08 02/15/17 11:35 02/16/17 05:20 Sodium Level 124 mmol/L (136-145) 124 mmol/L (136-145) 124 mmol/L (136-145) Potassium Level 4.6 mmol/L (3.5-5.1) 5.1 mmol/L (3.5-5.1) Chloride Level 92 mmol/L (98-107) 91 mmol/L (98-107) Carbon Dioxide Level 18 mmol/L (21-32) 18 mmol/L (21-32) Anion Gap 14 (6-14) 15 (6-14) Blood Urea Nitrogen 48 mg/dL (7-20) 67 mg/dL (7-20) Creatinine 3.4 mg/dL (0.6-1.0) 4.5 mg/dL (0.6-1.0) Estimated GFR (Cockcroft-Gault) 17.0 12.3 Glucose Level 153 mg/dL (70-99) 111 mg/dL (70-99) Calcium Level 6.9 mg/dL (8.5-10.1) 7.5 mg/dL (8.5-10.1) Phosphorus Level 4.7 mg/dL (2.6-4.7) 5.8 mg/dL (2.6-4.7) Magnesium Level 1.8 mg/dL (1.8-2.4) 2.0 mg/dL (1.8-2.4) Albumin 1.8 g/dL (3.4-5.0) 2.3 g/dL (3.4-5.0) O2 Saturation 97 % (92-99) Arterial Blood pH 7.25 (7.35-7.45) Arterial Blood pCO2 at Patient Temp 41 mmHg (35-46) Arterial Blood pO2 at Patient Temp 103 mmHg (75-108) Arterial Blood HCO3 17 mmol/L (21-28) Arterial Blood Base Excess -9 mmol/L (-3-3) FiO2 40 White Blood Count 16.1 x10^3/uL (4.0-11.0) Red Blood Count 2.86 x10^6/uL (3.50-5.40) Hemoglobin 9.4 g/dL (12.0-15.5) Hematocrit 28.3 % (36.0-47.0) Mean Corpuscular Volume 99 fL (79-100) Mean Corpuscular Hemoglobin 33 pg (25-35) Mean Corpuscular Hemoglobin Concent 33 g/dL (31-37) Red Cell Distribution Width 14.2 % (11.5-14.5) Platelet Count 118 x10^3/uL (140-400) Neutrophils (%) (Auto) 96 % (31-73) Lymphocytes (%) (Auto) 3 % (24-48) Monocytes (%) (Auto) 1 % (0-9) Eosinophils (%) (Auto) 0 % (0-3) Basophils (%) (Auto) 0 % (0-3) Neutrophils # (Auto) 15.4 x10^3uL (1.8-7.7) Lymphocytes # (Auto) 0.4 x10^3/uL (1.0-4.8) Monocytes # (Auto) 0.2 x10^3/uL (0.0-1.1) Eosinophils # (Auto) 0.0 x10^3/uL (0.0-0.7) Basophils # (Auto) 0.0 x10^3/uL (0.0-0.2) BUN/Creatinine Ratio 15 (6-20) Total Bilirubin 2.2 mg/dL (0.2-1.0) Aspartate Amino Transf (AST/SGOT) 600 U/L (15-37) Alanine Aminotransferase (ALT/SGPT) 1568 U/L (14-59) Alkaline Phosphatase 72 U/L (46-116) Total Protein 5.5 g/dL (6.4-8.2) Albumin/Globulin Ratio 0.7 (1.0-1.7) Test 02/16/17 08:00 O2 Saturation 95 % (92-99) Arterial Blood pH 7.32 (7.35-7.45) Arterial Blood pCO2 at Patient Temp 51 mmHg (35-46) Arterial Blood pO2 at Patient Temp 80 mmHg (75-108) Arterial Blood HCO3 26 mmol/L (21-28) Arterial Blood Base Excess -1 mmol/L (-3-3) FiO2 40 Laboratory Tests Test 02/16/17 05:20 02/16/17 08:00 White Blood Count 16.1 x10^3/uL (4.0-11.0) Red Blood Count 2.86 x10^6/uL (3.50-5.40) Hemoglobin 9.4 g/dL (12.0-15.5) Hematocrit 28.3 % (36.0-47.0) Mean Corpuscular Volume 99 fL (79-100) Mean Corpuscular Hemoglobin 33 pg (25-35) Mean Corpuscular Hemoglobin Concent 33 g/dL (31-37) Red Cell Distribution Width 14.2 % (11.5-14.5) Platelet Count 118 x10^3/uL (140-400) Neutrophils (%) (Auto) 96 % (31-73) Lymphocytes (%) (Auto) 3 % (24-48) Monocytes (%) (Auto) 1 % (0-9) Eosinophils (%) (Auto) 0 % (0-3) Basophils (%) (Auto) 0 % (0-3) Neutrophils # (Auto) 15.4 x10^3uL (1.8-7.7) Lymphocytes # (Auto) 0.4 x10^3/uL (1.0-4.8) Monocytes # (Auto) 0.2 x10^3/uL (0.0-1.1) Eosinophils # (Auto) 0.0 x10^3/uL (0.0-0.7) Basophils # (Auto) 0.0 x10^3/uL (0.0-0.2) Sodium Level 124 mmol/L (136-145) Potassium Level 5.1 mmol/L (3.5-5.1) Chloride Level 91 mmol/L (98-107) Carbon Dioxide Level 18 mmol/L (21-32) Anion Gap 15 (6-14) Blood Urea Nitrogen 67 mg/dL (7-20) Creatinine 4.5 mg/dL (0.6-1.0) Estimated GFR (Cockcroft-Gault) 12.3 BUN/Creatinine Ratio 15 (6-20) Glucose Level 111 mg/dL (70-99) Calcium Level 7.5 mg/dL (8.5-10.1) Phosphorus Level 5.8 mg/dL (2.6-4.7) Magnesium Level 2.0 mg/dL (1.8-2.4) Total Bilirubin 2.2 mg/dL (0.2-1.0) Aspartate Amino Transf (AST/SGOT) 600 U/L (15-37) Alanine Aminotransferase (ALT/SGPT) 1568 U/L (14-59) Alkaline Phosphatase 72 U/L (46-116) Total Protein 5.5 g/dL (6.4-8.2) Albumin 2.3 g/dL (3.4-5.0) Albumin/Globulin Ratio 0.7 (1.0-1.7) O2 Saturation 95 % (92-99) Arterial Blood pH 7.32 (7.35-7.45) Arterial Blood pCO2 at Patient Temp 51 mmHg (35-46) Arterial Blood pO2 at Patient Temp 80 mmHg (75-108) Arterial Blood HCO3 26 mmol/L (21-28) Arterial Blood Base Excess -1 mmol/L (-3-3) FiO2 40 Microbiology 02/15/17 Blood Culture - Preliminary, Resulted NO GROWTH AFTER 1 DAY 02/12/17 Urine Culture - Final, Complete 02/12/17 Urine Culture Result 1 (ELIZABETH) - Final, Complete Medications Current Medications Calcium Chloride 1,000 mg 1X ONCE IV Last administered on 02/12/17 15:35; Start 02/12/17 at 16:00; Stop 02/12/17 at 16:35; Status DC Dextrose (Dextrose 50%-Water Syringe) 25 gm 1X ONCE IV Last administered on 15:33; Start 02/12/17 at 16:00; Stop 02/12/17 at 16:35; Status DC Sodium Bicarbonate 50 meq 1X ONCE IV Last administered on 02/12/17 15:35; Start 02/12/17 at 16:00; Stop 02/12/17 at 16:35; Status DC Furosemide (Lasix) 40 mg 1X ONCE IVP Last administered on 02/12/17 16:42; Start 02/12/17 at 16:30; Stop 02/12/17 at 16:35; Status DC Sodium Chloride 1,000 ml @ 1,000 mls/hr Q1H IV Last administered on 02/12/17 15:50; Start 02/12/17 at 16:57; Stop 02/13/17 at 07:23; Status DC Fentanyl Citrate (Fentanyl 2ml Vial) 25 mcg PRN Q30MIN PRN IV SED; Start at 17:00 Lorazepam (Ativan) 1 mg PRN Q30MIN PRN IV SEDATION; Start 02/12/17 at 17:00 Fentanyl Citrate 30 ml @ 2.5 mls/hr CONT PRN PRN IV IVF Last administered on 03:27; Start 02/12/17 at 17:00 Propofol 100 ml @ 0 mls/hr CONT PRN IV SEE I/O RECORD; Start 02/12/17 at 17:00 Vecuronium Loiza (Norcuron Bolus) DOSE AT 0.1 mg/kg PRN Q30MIN PRN IV SHIVERING Last administered on 02/12/17 19:46; Start 02/12/17 at 17:00; Stop 02/13 at 11:01; Status DC Meperidine HCl (Demerol) 12.5 mg PRN Q30MIN PRN IV SHIVERING; Start 02/12/17 at 17:00 Multi-Ingred Cream/Lotion/Oil/ Oint (Artificial Tears Eye Oint) 1 silvestre PRN Q6HRS PRN OU 0.5 INCH FOR DRY EYE; Start 02/12/17 at 17:00 Famotidine (Pepcid) 20 mg BID IVP Last administered on 02/14/17 10:47; Start at 09:00; Stop 02/14/17 at 16:23; Status DC Aspirin (Aspirin) 300 mg DAILY UT Last administered on 02/16/17 09:13; Start 02/13/17 at 09:00 Sodium Chloride (Normal Saline Flush) 3 ml QSHIFT PRN IV AFTER MEDS AND BLOOD DRAWS; Start 02/12/17 at 17:00 Acetaminophen (Tylenol) 650 mg Q6HRS NG Last administered on 02/13/17 05:51; Start 02/12/17 at 18:00; Stop 02/13/17 at 17:59; Status DC Acetaminophen (Acetaminophen Supp) 650 mg PRN Q6HRS PRN UT MILD PAIN / TEMP; Start 02/13/17 at 17:00 Acetaminophen (Tylenol) 650 mg PRN Q6HRS PRN NG MILD PAIN / TEMP; Start at 17:00 Info 1 ea DAILY PRN MC PER PROTOCOL; Start 02/14/17 at 17:00 Sodium Chloride 500 ml @ 500 mls/hr 1X ONCE IV Last administered on 02/12/17 16:30; Start 02/12/17 at 17:15; Stop 02/12/17 at 18:14; Status DC Sodium Chloride 500 ml @ 500 mls/hr 1X ONCE IV Last administered on 02/12/17 16:50; Start 02/12/17 at 17:15; Stop 02/12/17 at 18:14; Status DC Sodium Chloride 1,000 ml @ 100 mls/hr Q10H IV Last administered on 02/13/17 06 :36; Start 02/12/17 at 19:00; Stop 02/13/17 at 10:51; Status DC Famotidine (Pepcid) 20 mg 1X ONCE PO Last administered on 02/12/17 19:57; Start 02/12/17 at 17:30; Stop 02/12/17 at 17:34; Status DC Methylprednisolone Sodium Succinate (SOLU-Medrol 40MG VIAL) 100 mg TID IV Last administered on 02/14/17 11:01; Start 02/12/17 at 18:00; Stop 02/14/17 at 12:00; Status DC Sodium Chloride 1,000 ml @ 1,000 mls/hr 1X ONCE IV Last administered on 19:31; Start 02/12/17 at 18:15; Stop 02/12/17 at 19:14; Status DC Piperacillin Sod/ Tazobactam Sod (Zosyn Per Pharmacy) 1 each PRN DAILY PRN MC SEE COMMENTS; Start 02/12/17 at 19:15 Vancomycin HCl (Vanco Per Pharmacy) 1 each PRN DAILY PRN MC SEE COMMENTS Last administered on 02/13/17 16:50; Start 02/12/17 at 19:15; Stop 02/14/17 at 07:57; Status DC Piperacillin Sod/ Tazobactam Sod 3.375 gm/Sodium Chloride 50 ml @ 100 mls/hr Q6HRS IV Last administered on 02/15/17 05:58; Start 02/12/17 at 19:30; Stop 02/15 at 09:37; Status DC Vancomycin HCl 1 gm/Sodium Chloride 250 ml @ 250 mls/hr 1X ONCE IV Last administered on 02/12/17 20:00; Start 02/12/17 at 19:30; Stop 02/12/17 at 20:29; Status DC Sodium Bicarbonate 50 meq 1X ONCE IV Last administered on 02/12/17 19:59; Start 02/12/17 at 19:30; Stop 02/12/17 at 19:31; Status DC Norepinephrine Bitartrate 250 ml @ 0 mls/hr CONT PRN IV SEE I/O RECORD Last administered on 02/16/17 07:18; Start 02/12/17 at 19:30 Norepinephrine Bitartrate 250 ml @ As Directed STK-MED ONCE IV ; Start 02/12/17 at 19:25; Stop 02/12/17 at 19:26; Status DC Vancomycin HCl 750 mg/Sodium Chloride 250 ml @ 250 mls/hr Q24H IV Last administered on 02/13/17 20:34; Start 02/13/17 at 20:00; Stop 02/14/17 at 07:57; Status DC Vancomycin HCl 1 each 1X ONCE MC ; Start 02/14/17 at 19:30; Stop 02/14/17 at 19: 31; Status Cancel Sodium Chloride 1,000 ml @ 1,000 mls/hr 1X ONCE IV Last administered on 05:05; Start 02/13/17 at 04:45; Stop 02/13/17 at 05:44; Status DC Sodium Chloride 1,000 ml @ 1,000 mls/hr 1X ONCE IV Last administered on 05:35; Start 02/13/17 at 05:30; Stop 02/13/17 at 06:29; Status DC Magnesium Sulfate/ Dextrose 50 ml @ 25 mls/hr PRN DAILY PRN IV for Mag < 1.7 on am labs; Start 02/13/17 at 10:45 Dextrose/Sodium Chloride 1,000 ml @ 75 mls/hr [id number] IV Last administered on 02/15/17 01:52; Start 02/13/17 at 11:00; Stop 02/15/17 at 08:52; Status DC Vecuronium Loiza (Norcuron Bolus) 5 mg PRN Q30MIN PRN IV SHIVERING; Start 02/13/17 at 11:15 Lidocaine/Sodium Bicarbonate (Buffered Lidocaine 1%) 3 ml 1X ONCE IJ Last administered on 02/13/17 11:40; Start 02/13/17 at 11:15; Stop 02/13/17 at 11:26; Status DC Heparin Sodium/ Sodium Chloride 60 unit 1X ONCE IV Last administered on 11:40; Start 02/13/17 at 11:15; Stop 02/13/17 at 11:26; Status DC Lidocaine/Sodium Bicarbonate (Buffered Lidocaine 1%) 20 ml STK-MED ONCE IJ ; Start 02/13/17 at 11:22; Stop 02/13/17 at 11:29; Status DC Heparin Sodium (Porcine) (Heparin Sodium) 2,075 unit 1X ONCE IV Last administered on 02/13/17 12:45; Start 02/13/17 at 11:45; Stop 02/13/17 at 11:56; Status DC Heparin Sodium/ Dextrose 500 ml @ 16.5 mls/hr CONT PRN IV SEE I/O RECORD Last administered on 02/13/17 12:47; Start 02/13/17 at 11:45; Stop 02/14/17 at 13:53; Status DC Heparin Sodium (Porcine) (Heparin Sodium) 1,550 unit PRN Q6HRS PRN IV FOR UFH LEVEL LESS THAN 0.2 Last administered on 02/13/17 20:22; Start 02/13/17 at 11:45 ; Stop 02/14/17 at 13:53; Status DC Heparin Sodium (Porcine) (Heparin Sodium) 800 unit PRN Q6HRS PRN IV FOR UFH LEVEL 0.2 - 0.29 Last administered on 02/14/17 02:34; Start 02/13/17 at 11:45; Stop 02/14/17 at 13:53; Status DC Warfarin Sodium (Coumadin Per Pharmacy) 1 each PRN DAILY PRN MC PER PROTOCOL; Start 02/13/17 at 11:45; Status Cancel Info (Anti-Coagulation Monitoring By Pharmacy) 1 each PRN DAILY PRN MC SEE COMMENTS; Start 02/13/17 at 13:00; Stop 02/14/17 at 16:28; Status DC Calcium Chloride 1,000 mg STK-MED ONCE IV ; Start 02/12/17 at 10:00; Stop at 16:27; Status DC Epinephrine HCl (EPINEPHrine SYRINGE) 1 mg STK-MED ONCE .ROUTE ; Start 02/12/17 at 10:00; Stop 02/13/17 at 16:27; Status DC Dextrose (Dextrose 50%-Water Syringe) 25 gm STK-MED ONCE IV ; Start 02/12/17 at 10:00; Stop 02/13/17 at 16:27; Status DC Sodium Bicarbonate 50 meq STK-MED ONCE .ROUTE ; Start 02/12/17 at 10:00; Stop 02/13/17 at 16:27; Status DC Methylprednisolone Sodium Succinate (SOLU-Medrol 125MG VIAL) 100 mg TID IV Last administered on 02/16/17 09:13; Start 02/14/17 at 18:00 Norepinephrine Bitartrate 250 ml @ 0 mls/hr CONT PRN IV SEE I/O RECORD; Start 02/14/17 at 15:30; Status Cancel Famotidine (Pepcid) 20 mg DAILY IVP Last administered on 02/16/17 09:13; Start 02/15/17 at 09:00 Amino Acids/ Glycerin/ Electrolytes 1,000 ml @ 80 mls/hr [id number] IV Last administered on 02/15/17 09:32; Start 02/15/17 at 08:45; Stop 02/15/17 at 15:14; Status DC Albumin Human 100 ml @ 100 mls/hr 1X ONCE IV Last administered on 02/15/17 09 :30; Start 02/15/17 at 08:45; Stop 02/15/17 at 09:44; Status DC Furosemide (Lasix) 40 mg 1X ONCE IVP ; Start 02/15/17 at 08:45; Stop 02/15/17 at 09:18; Status DC Piperacillin Sod/ Tazobactam Sod 2.25 gm/Sodium Chloride 50 ml @ 100 mls/hr Q6HRS IV Last administered on 02/16/17 05:52; Start 02/15/17 at 12:00; Stop 03/25 at 09:17; Status DC Daptomycin 340 mg/ Sodium Chloride 50 ml @ 100 mls/hr ONCE ONCE IV Last administered on 02/15/17 11:15; Start 02/15/17 at 11:15; Stop 02/15/17 at 11:44; Status DC Dextrose/Sodium Chloride 1,000 ml @ 40 mls/hr Q24H IV Last administered on 02/15 15:57; Start 02/15/17 at 15:15 Lidocaine/Sodium Bicarbonate (Buffered Lidocaine 1%) 3 ml 1X ONCE IJ Last administered on 02/15/17 16:00; Start 02/15/17 at 15:45; Stop 02/15/17 at 15:46; Status DC Heparin Sodium/ Sodium Chloride 6,000 unit 1X ONCE IV ; Start 02/15/17 at 15:45 ; Stop 02/15/17 at 15:46; Status DC Sodium Chloride 1,000 ml @ 1,000 mls/hr Q1H PRN IV hypotension; Start 02/16/17 at 06:38; Stop 02/16/17 at 12:37 Info (PHARMACY MONITORING -- do not chart) 1 each PRN DAILY PRN MC SEE COMMENTS ; Start 02/16/17 at 06:45 Info (PHARMACY MONITORING -- do not chart) 1 each PRN DAILY PRN MC SEE COMMENTS ; Start 02/16/17 at 06:45; Stop 02/16/17 at 09:19; Status DC Info (PHARMACY MONITORING -- do not chart) 1 each PRN DAILY PRN MC SEE COMMENTS ; Start 02/16/17 at 06:45; Stop 02/16/17 at 09:19; Status DC Albumin Human 100 ml @ 100 mls/hr 1X ONCE IV Last administered on 02/16/17t 07:18; Start 02/16/17 at 07:00; Stop 02/16/17 at 07:59; Status DC Piperacillin Sod/ Tazobactam Sod 2.25 gm/Sodium Chloride 50 ml @ 100 mls/hr Q8HRS IV ; Start 02/16/17 at 14:00 Active Scripts Active Reported Latuda (Lurasidone Hcl) 20 Mg Tablet 20 Mg PO AFTRNOON Remeron (Mirtazapine) 15 Mg Tablet 1 Tab PO QHS Oxybutynin Chloride Er (Oxybutynin Chloride) 10 Mg Tab.er.24 1 Tab PO DAILY Multivitamins (Multivitamin) 1 Each Tablet 1 Tab PO DAILY Latuda (Lurasidone Hcl) 20 Mg Tablet 10 Mg PO AFTRNOON Lorazepam 0.5 Mg Tablet 1 Tab PO QEVNG Duoneb 0.5-3(2.5) Mg/3 Ml (Albuterol/Ipratropium) 3 Ml Ampul.neb 3 Ml NEB BID Duoneb 0.5-3(2.5) Mg/3 Ml (Albuterol/Ipratropium) 3 Ml Ampul.neb 3 Ml NEB Q4H PRN Calcium Carbonate 500 Mg Tablet 1,000 Mg PO Q4HRS PRN Nicotine Gum (Nicotine Polacrilex) 4 Mg Gum 4 Mg BC Milk Of Magnesia (Magnesium Hydroxide) 400 Mg/5 Ml Oral.susp 400 Mg PO Q3DAYS PRN Milk Of Magnesia (Magnesium Hydroxide) 400 Mg/5 Ml Oral.susp 400 Mg PO Q3DAYS PRN Lorazepam 1 Mg Tablet 1 Tab PO Q12HR PRN Ibuprofen 400 Mg Tablet 200 Mg PO Q8HRS PRN Cough Drops (Eucalyptus Oil/Menthol) 7 Mg Lozenge 7 Mg MM Q4HRS PRN Tylenol (Acetaminophen) 325 Mg Tablet 650 Mg PO Q4HRS PRN Lovaza ([place]-3 Acid Ethyl Esters) 1 Gm Capsule 1 Cap PO QID Gabapentin 400 Mg Capsule 400 Mg PO QID Lorazepam 1 Mg Tablet 1 Tab PO BID Latuda (Lurasidone Hcl) 60 Mg Tablet 60 Mg PO BID Advair 100-50 Diskus (Fluticasone/Salmeterol) 1 Each Disk.w.dev 1 Puff IH BID Acetaminophen 325 Mg Capsule 650 Mg PO BID Vitamin D (Cholecalciferol (Vitamin D3)) 2,000 Unit Capsule 800 Unit PO DAILY Vitals/I & O Vital Sign - Last 24 Hours 02/15/17 02/15/17 02/15/17 02/15/17 13:00 13:04 14:26 15:30 Temp 97.6 97.6 97.6 97.6 Pulse 88 89 89 Resp B/P (MAP) 98/60 (73) 101/61 (74) 100/61 (74) Pulse Ox 100 O2 Delivery Ventilator Ventilator 02/15/17 02/15/17 02/15/17 02/15/17 15:32 16:00 16:00 16:23 Pulse 90 Resp B/P (MAP) 92/58 (69) 92/51 (65) Pulse Ox 100 100 O2 Delivery Ventilator Ventilator Mechanical Ventilator 02/15/17 02/15/17 02/15/17 02/15/17 16:57 17:00 18:00 19:00 Pulse 91 89 92 Resp B/P (MAP) 93/56 (68) 83/58 (66) 86/57 (67) Pulse Ox 100 100 100 100 O2 Delivery Ventilator Ventilator Ventilator Ventilator 02/15/17 02/15/17 02/15/17 02/15/17 20:00 20:00 20:50 21:00 Temp 96.3 96.3 Pulse 90 86 Resp B/P (MAP) 89/57 (68) 85/64 (71) Pulse Ox 100 100 100 O2 Delivery Mechanical Ventilator Ventilator Ventilator Ventilator 02/15/17 02/15/17 02/15/17 02/15/17 22:00 23:00 23:24 23:59 Pulse 85 90 Resp B/P (MAP) 94/56 (69) 91/53 (66) Pulse Ox 100 100 100 O2 Delivery Ventilator Ventilator Ventilator Mechanical Ventilator 02/16/17 02/16/17 02/16/1717 00:00 01:00 02:00 02:31 Temp 97.9 97.9 Pulse 90 90 92 Resp B/P (MAP) 93/58 (70) 87/46 (60) 109/66 (80) Pulse Ox 100 100 100 100 O2 Delivery Ventilator Ventilator Ventilator Ventilator 02/16/17 02/16/17 02/16/17 02/16/17 03:00 04:00 04:00 04:36 Temp 97.8 97.8 Pulse 90 93 Resp B/P (MAP) 86/47 (60) 103/61 (75) Pulse Ox 100 98 100 O2 Delivery Ventilator Ventilator Mechanical Ventilator Ventilator 02/16/17 02/16/17 02/16/17 02/16/17 05:00 05:57 06:00 07:00 Temp 98.7 98.7 Pulse 91 103 102 Resp B/P (MAP) 95/56 (69) 97/58 (71) 85/56 (66) Pulse Ox 100 100 100 100 O2 Delivery Ventilator Ventilator Ventilator Ventilator 02/16/17 02/16/17 02/16/17 02/16/17 08:00 08:00 08:29 10:06 Temp 98.7 98.7 Pulse 107 Resp B/P (MAP) 104/61 (75) Pulse Ox 99 100 100 O2 Delivery Mechanical Ventilator Ventilator Ventilator Ventilator 02/16/17 02/16/17 12:00 12:12 Pulse Ox 100 O2 Delivery Mechanical Ventilator Ventilator Intake and Output 02/16/17 02/16/17 02/17/17 15:00 23:00 07:00 Intake Total 0 ml Output Total 5 ml Balance -5 ml PADDY GONZALES MD Feb 16, 2017 12:23
--- NOTE | 2017-02-16 16:00 | PDOC ---
PROGRESS NOTES Assessment 1. Anoxic encephalopathy with potentially a prolonged down time without a perfusing blood pressure. She underwent hypothermic protocol. She has been off sedation for 2-1/2 days. She has evidence of some brainstem reflexes but not all. She does not follow commands or look up to command. Prognosis is extremely poor for any meaningful recovery. I would recommend a DNR status and the shift of care to comfort. 2. Oliguric renal failure now receiving hemodialysis. 3. Hypocalcemia 4. Positive blood culture with methicillin-resistant staph aureus. Plan 1. I would recommend changing the patient to a DNR status as the prognosis is extremely poor. 2. Goals will need to be made with how long hemodialysis will be continued if the renal function does not improve. Subjective Nonverbal, intubated, ventilated and in a coma. Objective Vital Signs Date Time Temp Pulse Resp B/P (MAP) Pulse Ox O2 Delivery O2 Flow Rate FiO2 02/16/17 12:12 100 Ventilator 02/16/17 12:00 98.4 88 30 91/65 (74) 98.4 Intake and Output 02/17/17 07:00 Intake Total 50 ml Output Total 5 ml Balance 45 ml Intake IV Total 50 ml Tube Feeding 0 ml Output Urine Total 5 ml PHYSICAL EXAM She was intubated and ventilated. She was not on any sedating medications. The eyes were closed. With noxious stimulation the eyes would open a crack. When held open the eyes were disconjugate without focus. Oculocephalic reflex was partially intact. Corneal reflex was absent. Pupils did not respond well. She did not respond to visual threat or loud clap. The face was symmetric. Tone was flaccid in the arms and legs. Nailbed pressure caused extensor posturing in the arms and a triple flexion response in the legs which fatigued. She cough to deep suctioning. Review of Relevant I have reviewed the following items reji (where applicable) has been applied. Labs Laboratory Tests Test 02/14/17 16:00 02/14/17 19:30 02/15/17 00:01 02/15/17 05:20 White Blood Count 24.5 x10^3/uL (4.0-11.0) Red Blood Count 3.87 x10^6/uL (3.50-5.40) Hemoglobin 13.1 g/dL (12.0-15.5) Hematocrit 37.4 % (36.0-47.0) Mean Corpuscular Volume 96 fL (79-100) Mean Corpuscular Hemoglobin 34 pg (25-35) Mean Corpuscular Hemoglobin Concent 35 g/dL (31-37) Red Cell Distribution Width 13.5 % (11.5-14.5) Platelet Count 175 x10^3/uL (140-400) Prothrombin Time 25.7 SEC (11.7-14.0) Prothromb Time International Ratio 2.5 (0.8-1.1) Activated Partial Thromboplast Time 37 SEC (24-38) Sodium Level 127 mmol/L (136-145) 126 mmol/L (136-145) 125 mmol/L (136-145) 124 mmol/L (136-145) Potassium Level 4.6 mmol/L (3.5-5.1) 4.6 mmol/L (3.5-5.1) Chloride Level 94 mmol/L (98-107) 92 mmol/L (98-107) Carbon Dioxide Level 20 mmol/L (21-32) 18 mmol/L (21-32) Anion Gap 13 (6-14) 14 (6-14) Blood Urea Nitrogen 41 mg/dL (7-20) 48 mg/dL (7-20) Creatinine 2.8 mg/dL (0.6-1.0) 3.4 mg/dL (0.6-1.0) Estimated GFR (Cockcroft-Gault) 21.3 17.0 Glucose Level 123 mg/dL (70-99) 153 mg/dL (70-99) Calcium Level 7.2 mg/dL (8.5-10.1) 6.9 mg/dL (8.5-10.1) Phosphorus Level 4.9 mg/dL (2.6-4.7) 4.7 mg/dL (2.6-4.7) Magnesium Level 1.7 mg/dL (1.8-2.4) 1.8 mg/dL (1.8-2.4) Albumin 1.8 g/dL (3.4-5.0) Test 02/15/17 07:08 02/15/17 11:35 02/16/17 04:11 02/16/17 05:20 O2 Saturation 97 % (92-99) Arterial Blood pH 7.25 (7.35-7.45) Arterial Blood pCO2 at Patient Temp 41 mmHg (35-46) Arterial Blood pO2 at Patient Temp 103 mmHg (75-108) Arterial Blood HCO3 17 mmol/L (21-28) Arterial Blood Base Excess -9 mmol/L (-3-3) FiO2 40 Sodium Level 124 mmol/L (136-145) 124 mmol/L (136-145) Urine Random Sodium <60 mmol/L (Not Estab.) White Blood Count 16.1 x10^3/uL (4.0-11.0) Red Blood Count 2.86 x10^6/uL (3.50-5.40) Hemoglobin 9.4 g/dL (12.0-15.5) Hematocrit 28.3 % (36.0-47.0) Mean Corpuscular Volume 99 fL (79-100) Mean Corpuscular Hemoglobin 33 pg (25-35) Mean Corpuscular Hemoglobin Concent 33 g/dL (31-37) Red Cell Distribution Width 14.2 % (11.5-14.5) Platelet Count 118 x10^3/uL (140-400) Neutrophils (%) (Auto) 96 % (31-73) Lymphocytes (%) (Auto) 3 % (24-48) Monocytes (%) (Auto) 1 % (0-9) Eosinophils (%) (Auto) 0 % (0-3) Basophils (%) (Auto) 0 % (0-3) Neutrophils # (Auto) 15.4 x10^3uL (1.8-7.7) Lymphocytes # (Auto) 0.4 x10^3/uL (1.0-4.8) Monocytes # (Auto) 0.2 x10^3/uL (0.0-1.1) Eosinophils # (Auto) 0.0 x10^3/uL (0.0-0.7) Basophils # (Auto) 0.0 x10^3/uL (0.0-0.2) Potassium Level 5.1 mmol/L (3.5-5.1) Chloride Level 91 mmol/L (98-107) Carbon Dioxide Level 18 mmol/L (21-32) Anion Gap 15 (6-14) Blood Urea Nitrogen 67 mg/dL (7-20) Creatinine 4.5 mg/dL (0.6-1.0) Estimated GFR (Cockcroft-Gault) 12.3 BUN/Creatinine Ratio 15 (6-20) Glucose Level 111 mg/dL (70-99) Calcium Level 7.5 mg/dL (8.5-10.1) Phosphorus Level 5.8 mg/dL (2.6-4.7) Magnesium Level 2.0 mg/dL (1.8-2.4) Total Bilirubin 2.2 mg/dL (0.2-1.0) Aspartate Amino Transf (AST/SGOT) 600 U/L (15-37) Alanine Aminotransferase (ALT/SGPT) 1568 U/L (14-59) Alkaline Phosphatase 72 U/L (46-116) Total Protein 5.5 g/dL (6.4-8.2) Albumin 2.3 g/dL (3.4-5.0) Albumin/Globulin Ratio 0.7 (1.0-1.7) Test 02/16/17 08:00 O2 Saturation 95 % (92-99) Arterial Blood pH 7.32 (7.35-7.45) Arterial Blood pCO2 at Patient Temp 51 mmHg (35-46) Arterial Blood pO2 at Patient Temp 80 mmHg (75-108) Arterial Blood HCO3 26 mmol/L (21-28) Arterial Blood Base Excess -1 mmol/L (-3-3) FiO2 40 Laboratory Tests Test 02/16/17 04:11 02/16/17 05:20 02/16/17 08:00 Urine Random Sodium <60 mmol/L (Not Estab.) White Blood Count 16.1 x10^3/uL (4.0-11.0) Red Blood Count 2.86 x10^6/uL (3.50-5.40) Hemoglobin 9.4 g/dL (12.0-15.5) Hematocrit 28.3 % (36.0-47.0) Mean Corpuscular Volume 99 fL (79-100) Mean Corpuscular Hemoglobin 33 pg (25-35) Mean Corpuscular Hemoglobin Concent 33 g/dL (31-37) Red Cell Distribution Width 14.2 % (11.5-14.5) Platelet Count 118 x10^3/uL (140-400) Neutrophils (%) (Auto) 96 % (31-73) Lymphocytes (%) (Auto) 3 % (24-48) Monocytes (%) (Auto) 1 % (0-9) Eosinophils (%) (Auto) 0 % (0-3) Basophils (%) (Auto) 0 % (0-3) Neutrophils # (Auto) 15.4 x10^3uL (1.8-7.7) Lymphocytes # (Auto) 0.4 x10^3/uL (1.0-4.8) Monocytes # (Auto) 0.2 x10^3/uL (0.0-1.1) Eosinophils # (Auto) 0.0 x10^3/uL (0.0-0.7) Basophils # (Auto) 0.0 x10^3/uL (0.0-0.2) Sodium Level 124 mmol/L (136-145) Potassium Level 5.1 mmol/L (3.5-5.1) Chloride Level 91 mmol/L (98-107) Carbon Dioxide Level 18 mmol/L (21-32) Anion Gap 15 (6-14) Blood Urea Nitrogen 67 mg/dL (7-20) Creatinine 4.5 mg/dL (0.6-1.0) Estimated GFR (Cockcroft-Gault) 12.3 BUN/Creatinine Ratio 15 (6-20) Glucose Level 111 mg/dL (70-99) Calcium Level 7.5 mg/dL (8.5-10.1) Phosphorus Level 5.8 mg/dL (2.6-4.7) Magnesium Level 2.0 mg/dL (1.8-2.4) Total Bilirubin 2.2 mg/dL (0.2-1.0) Aspartate Amino Transf (AST/SGOT) 600 U/L (15-37) Alanine Aminotransferase (ALT/SGPT) 1568 U/L (14-59) Alkaline Phosphatase 72 U/L (46-116) Total Protein 5.5 g/dL (6.4-8.2) Albumin 2.3 g/dL (3.4-5.0) Albumin/Globulin Ratio 0.7 (1.0-1.7) O2 Saturation 95 % (92-99) Arterial Blood pH 7.32 (7.35-7.45) Arterial Blood pCO2 at Patient Temp 51 mmHg (35-46) Arterial Blood pO2 at Patient Temp 80 mmHg (75-108) Arterial Blood HCO3 26 mmol/L (21-28) Arterial Blood Base Excess -1 mmol/L (-3-3) FiO2 40 Microbiology 02/15/17 Blood Culture - Preliminary, Resulted NO GROWTH AFTER 1 DAY 02/12/17 Urine Culture - Final, Complete 02/12/17 Urine Culture Result 1 (ELIZABETH) - Final, Complete Medications Current Medications Calcium Chloride 1,000 mg 1X ONCE IV Last administered on 02/12/17 15:35; Start 02/12/17 at 16:00; Stop 02/12/17 at 16:35; Status DC Dextrose (Dextrose 50%-Water Syringe) 25 gm 1X ONCE IV Last administered on 15:33; Start 02/12/17 at 16:00; Stop 02/12/17 at 16:35; Status DC Sodium Bicarbonate 50 meq 1X ONCE IV Last administered on 02/12/17 15:35; Start 02/12/17 at 16:00; Stop 02/12/17 at 16:35; Status DC Furosemide (Lasix) 40 mg 1X ONCE IVP Last administered on 02/12/17 16:42; Start 02/12/17 at 16:30; Stop 02/12/17 at 16:35; Status DC Sodium Chloride 1,000 ml @ 1,000 mls/hr Q1H IV Last administered on 02/12/17 15:50; Start 02/12/17 at 16:57; Stop 02/13/17 at 07:23; Status DC Fentanyl Citrate (Fentanyl 2ml Vial) 25 mcg PRN Q30MIN PRN IV SED; Start at 17:00 Lorazepam (Ativan) 1 mg PRN Q30MIN PRN IV SEDATION; Start 02/12/17 at 17:00 Fentanyl Citrate 30 ml @ 2.5 mls/hr CONT PRN PRN IV IVF Last administered on 03:27; Start 02/12/17 at 17:00 Propofol 100 ml @ 0 mls/hr CONT PRN IV SEE I/O RECORD; Start 02/12/17 at 17:00 Vecuronium [place] (Norcuron Bolus) DOSE AT 0.1 mg/kg PRN Q30MIN PRN IV SHIVERING Last administered on 02/12/17 19:46; Start 02/12/17 at 17:00; Stop 02/13 at 11:01; Status DC Meperidine HCl (Demerol) 12.5 mg PRN Q30MIN PRN IV SHIVERING; Start 02/12/17 at 17:00 Multi-Ingred Cream/Lotion/Oil/ Oint (Artificial Tears Eye Oint) 1 silvestre PRN Q6HRS PRN OU 0.5 INCH FOR DRY EYE; Start 02/12/17 at 17:00 Famotidine (Pepcid) 20 mg BID IVP Last administered on 02/14/17 10:47; Start at 09:00; Stop 02/14/17 at 16:23; Status DC Aspirin (Aspirin) 300 mg DAILY [place] Last administered on 02/16/17 09:13; Start 02/13/17 at 09:00 Sodium Chloride (Normal Saline Flush) 3 ml QSHIFT PRN IV AFTER MEDS AND BLOOD DRAWS; Start 02/12/17 at 17:00 Acetaminophen (Tylenol) 650 mg Q6HRS NG Last administered on 02/13/17 05:51; Start 02/12/17 at 18:00; Stop 02/13/17 at 17:59; Status DC Acetaminophen (Acetaminophen Supp) 650 mg PRN Q6HRS PRN [place] MILD PAIN / TEMP; Start 02/13/17 at 17:00 Acetaminophen (Tylenol) 650 mg PRN Q6HRS PRN NG MILD PAIN / TEMP; Start at 17:00 Info 1 ea DAILY PRN MC PER PROTOCOL; Start 02/14/17 at 17:00 Sodium Chloride 500 ml @ 500 mls/hr 1X ONCE IV Last administered on 02/12/17 16:30; Start 02/12/17 at 17:15; Stop 02/12/17 at 18:14; Status DC Sodium Chloride 500 ml @ 500 mls/hr 1X ONCE IV Last administered on 02/12/17 16:50; Start 02/12/17 at 17:15; Stop 02/12/17 at 18:14; Status DC Sodium Chloride 1,000 ml @ 100 mls/hr Q10H IV Last administered on 02/13/17 06 :36; Start 02/12/17 at 19:00; Stop 02/13/17 at 10:51; Status DC Famotidine (Pepcid) 20 mg 1X ONCE PO Last administered on 02/12/17 19:57; Start 02/12/17 at 17:30; Stop 02/12/17 at 17:34; Status DC Methylprednisolone Sodium Succinate (SOLU-Medrol 40MG VIAL) 100 mg TID IV Last administered on 02/14/17 11:01; Start 02/12/17 at 18:00; Stop 02/14/17 at 12:00; Status DC Sodium Chloride 1,000 ml @ 1,000 mls/hr 1X ONCE IV Last administered on 19:31; Start 02/12/17 at 18:15; Stop 02/12/17 at 19:14; Status DC Piperacillin Sod/ Tazobactam Sod (Zosyn Per Pharmacy) 1 each PRN DAILY PRN MC SEE COMMENTS; Start 02/12/17 at 19:15 Vancomycin HCl (Vanco Per Pharmacy) 1 each PRN DAILY PRN MC SEE COMMENTS Last administered on 02/13/17 16:50; Start 02/12/17 at 19:15; Stop 02/14/17 at 07:57; Status DC Piperacillin Sod/ Tazobactam Sod 3.375 gm/Sodium Chloride 50 ml @ 100 mls/hr Q6HRS IV Last administered on 02/15/17 05:58; Start 02/12/17 at 19:30; Stop 02/15 at 09:37; Status DC Vancomycin HCl 1 gm/Sodium Chloride 250 ml @ 250 mls/hr 1X ONCE IV Last administered on 02/12/17 20:00; Start 02/12/17 at 19:30; Stop 02/12/17 at 20:29; Status DC Sodium Bicarbonate 50 meq 1X ONCE IV Last administered on 02/12/17 19:59; Start 02/12/17 at 19:30; Stop 02/12/17 at 19:31; Status DC Norepinephrine Bitartrate 250 ml @ 0 mls/hr CONT PRN IV SEE I/O RECORD Last administered on 02/16/17 07:18; Start 02/12/17 at 19:30 Norepinephrine Bitartrate 250 ml @ As Directed STK-MED ONCE IV ; Start 02/12/17 at 19:25; Stop 02/12/17 at 19:26; Status DC Vancomycin HCl 750 mg/Sodium Chloride 250 ml @ 250 mls/hr Q24H IV Last administered on 02/13/17 20:34; Start 02/13/17 at 20:00; Stop 02/14/17 at 07:57; Status DC Vancomycin HCl 1 each 1X ONCE MC ; Start 02/14/17 at 19:30; Stop 02/14/17 at 19: 31; Status Cancel Sodium Chloride 1,000 ml @ 1,000 mls/hr 1X ONCE IV Last administered on 05:05; Start 02/13/17 at 04:45; Stop 02/13/17 at 05:44; Status DC Sodium Chloride 1,000 ml @ 1,000 mls/hr 1X ONCE IV Last administered on 05:35; Start 02/13/17 at 05:30; Stop 02/13/17 at 06:29; Status DC Magnesium Sulfate/ Dextrose 50 ml @ 25 mls/hr PRN DAILY PRN IV for Mag < 1.7 on am labs; Start 02/13/17 at 10:45 Dextrose/Sodium Chloride 1,000 ml @ 75 mls/hr [id number] IV Last administered on 02/15/17 01:52; Start 02/13/17 at 11:00; Stop 02/15/17 at 08:52; Status DC Vecuronium [place] (Norcuron Bolus) 5 mg PRN Q30MIN PRN IV SHIVERING; Start 02/13/17 at 11:15 Lidocaine/Sodium Bicarbonate (Buffered Lidocaine 1%) 3 ml 1X ONCE IJ Last administered on 02/13/17 11:40; Start 02/13/17 at 11:15; Stop 02/13/17 at 11:26; Status DC Heparin Sodium/ Sodium Chloride 60 unit 1X ONCE IV Last administered on 11:40; Start 02/13/17 at 11:15; Stop 02/13/17 at 11:26; Status DC Lidocaine/Sodium Bicarbonate (Buffered Lidocaine 1%) 20 ml STK-MED ONCE IJ ; Start 02/13/17 at 11:22; Stop 02/13/17 at 11:29; Status DC Heparin Sodium (Porcine) (Heparin Sodium) 2,075 unit 1X ONCE IV Last administered on 02/13/17 12:45; Start 02/13/17 at 11:45; Stop 02/13/17 at 11:56; Status DC Heparin Sodium/ Dextrose 500 ml @ 16.5 mls/hr CONT PRN IV SEE I/O RECORD Last administered on 02/13/17 12:47; Start 02/13/17 at 11:45; Stop 02/14/17 at 13:53; Status DC Heparin Sodium (Porcine) (Heparin Sodium) 1,550 unit PRN Q6HRS PRN IV FOR UFH LEVEL LESS THAN 0.2 Last administered on 02/13/17 20:22; Start 02/13/17 at 11:45 ; Stop 02/14/17 at 13:53; Status DC Heparin Sodium (Porcine) (Heparin Sodium) 800 unit PRN Q6HRS PRN IV FOR UFH LEVEL 0.2 - 0.29 Last administered on 02/14/17 02:34; Start 02/13/17 at 11:45; Stop 02/14/17 at 13:53; Status DC Warfarin Sodium (Coumadin Per Pharmacy) 1 each PRN DAILY PRN MC PER PROTOCOL; Start 02/13/17 at 11:45; Status Cancel Info (Anti-Coagulation Monitoring By Pharmacy) 1 each PRN DAILY PRN MC SEE COMMENTS; Start 02/13/17 at 13:00; Stop 02/14/17 at 16:28; Status DC Calcium Chloride 1,000 mg STK-MED ONCE IV ; Start 02/12/17 at 10:00; Stop at 16:27; Status DC Epinephrine HCl (EPINEPHrine SYRINGE) 1 mg STK-MED ONCE .ROUTE ; Start 02/12/17 at 10:00; Stop 02/13/17 at 16:27; Status DC Dextrose (Dextrose 50%-Water Syringe) 25 gm STK-MED ONCE IV ; Start 02/12/17 at 10:00; Stop 02/13/17 at 16:27; Status DC Sodium Bicarbonate 50 meq STK-MED ONCE .ROUTE ; Start 02/12/17 at 10:00; Stop 02/13/17 at 16:27; Status DC Methylprednisolone Sodium Succinate (SOLU-Medrol 125MG VIAL) 100 mg TID IV Last administered on 02/16/17 14:27; Start 02/14/17 at 18:00 Norepinephrine Bitartrate 250 ml @ 0 mls/hr CONT PRN IV SEE I/O RECORD; Start 02/14/17 at 15:30; Status Cancel Famotidine (Pepcid) 20 mg DAILY IVP Last administered on 02/16/17 09:13; Start 02/15/17 at 09:00 Amino Acids/ Glycerin/ Electrolytes 1,000 ml @ 80 mls/hr [id number] IV Last administered on 02/15/17 09:32; Start 02/15/17 at 08:45; Stop 02/15/17 at 15:14; Status DC Albumin Human 100 ml @ 100 mls/hr 1X ONCE IV Last administered on 02/15/17 09 :30; Start 02/15/17 at 08:45; Stop 02/15/17 at 09:44; Status DC Furosemide (Lasix) 40 mg 1X ONCE IVP ; Start 02/15/17 at 08:45; Stop 02/15/17 at 09:18; Status DC Piperacillin Sod/ Tazobactam Sod 2.25 gm/Sodium Chloride 50 ml @ 100 mls/hr Q6HRS IV Last administered on 02/16/17 05:52; Start 02/15/17 at 12:00; Stop 03/25 at 09:17; Status DC Daptomycin 340 mg/ Sodium Chloride 50 ml @ 100 mls/hr ONCE ONCE IV Last administered on 02/15/17 11:15; Start 02/15/17 at 11:15; Stop 02/15/17 at 11:44; Status DC Dextrose/Sodium Chloride 1,000 ml @ 40 mls/hr Q24H IV Last administered on 02/15 15:57; Start 02/15/17 at 15:15 Lidocaine/Sodium Bicarbonate (Buffered Lidocaine 1%) 3 ml 1X ONCE IJ Last administered on 02/15/17 16:00; Start 02/15/17 at 15:45; Stop 02/15/17 at 15:46; Status DC Heparin Sodium/ Sodium Chloride 6,000 unit 1X ONCE IV ; Start 02/15/17 at 15:45 ; Stop 02/15/17 at 15:46; Status DC Sodium Chloride 1,000 ml @ 1,000 mls/hr Q1H PRN IV hypotension; Start 02/16/17 at 06:38; Stop 02/16/17 at 12:37; Status DC Info (PHARMACY MONITORING -- do not chart) 1 each PRN DAILY PRN MC SEE COMMENTS ; Start 02/16/17 at 06:45 Info (PHARMACY MONITORING -- do not chart) 1 each PRN DAILY PRN MC SEE COMMENTS ; Start 02/16/17 at 06:45; Stop 02/16/17 at 09:19; Status DC Info (PHARMACY MONITORING -- do not chart) 1 each PRN DAILY PRN MC SEE COMMENTS ; Start 02/16/17 at 06:45; Stop 02/16/17 at 09:19; Status DC Albumin Human 100 ml @ 100 mls/hr 1X ONCE IV Last administered on 02/16/17 07:18; Start 02/16/17 at 07:00; Stop 02/16/17 at 07:59; Status DC Piperacillin Sod/ Tazobactam Sod 2.25 gm/Sodium Chloride 50 ml @ 100 mls/hr Q8HRS IV Last administered on 02/16/17t 14:27; Start 02/16/17 at 14:00 Active Scripts Active Reported Latuda (Lurasidone Hcl) 20 Mg Tablet 20 Mg PO AFTRNOON Remeron (Mirtazapine) 15 Mg Tablet 1 Tab PO QHS Oxybutynin Chloride Er (Oxybutynin Chloride) 10 Mg Tab.er.24 1 Tab PO DAILY Multivitamins (Multivitamin) 1 Each Tablet 1 Tab PO DAILY Latuda (Lurasidone Hcl) 20 Mg Tablet 10 Mg PO AFTRNOON Lorazepam 0.5 Mg Tablet 1 Tab PO QEVNG Duoneb 0.5-3(2.5) Mg/3 Ml (Albuterol/Ipratropium) 3 Ml Ampul.neb 3 Ml NEB BID Duoneb 0.5-3(2.5) Mg/3 Ml (Albuterol/Ipratropium) 3 Ml Ampul.neb 3 Ml NEB Q4H PRN Calcium Carbonate 500 Mg Tablet 1,000 Mg PO Q4HRS PRN Nicotine Gum (Nicotine Polacrilex) 4 Mg Gum 4 Mg BC Milk Of Magnesia (Magnesium Hydroxide) 400 Mg/5 Ml Oral.susp 400 Mg PO Q3DAYS PRN Milk Of Magnesia (Magnesium Hydroxide) 400 Mg/5 Ml Oral.susp 400 Mg PO Q3DAYS PRN Lorazepam 1 Mg Tablet 1 Tab PO Q12HR PRN Ibuprofen 400 Mg Tablet 200 Mg PO Q8HRS PRN Cough Drops (Eucalyptus Oil/Menthol) 7 Mg Lozenge 7 Mg MM Q4HRS PRN Tylenol (Acetaminophen) 325 Mg Tablet 650 Mg PO Q4HRS PRN Lovaza ([place]-3 Acid Ethyl Esters) 1 Gm Capsule 1 Cap PO QID Gabapentin 400 Mg Capsule 400 Mg PO QID Lorazepam 1 Mg Tablet 1 Tab PO BID Latuda (Lurasidone Hcl) 60 Mg Tablet 60 Mg PO BID Advair 100-50 Diskus (Fluticasone/Salmeterol) 1 Each Disk.w.dev 1 Puff IH BID Acetaminophen 325 Mg Capsule 650 Mg PO BID Vitamin D (Cholecalciferol (Vitamin D3)) 2,000 Unit Capsule 800 Unit PO DAILY Vitals/I & O Vital Sign - Last 24 Hours 02/15/17 02/15/17 02/15/17 02/15/17 16:00 16:00 16:23 16:57 Pulse 90 Resp B/P (MAP) 92/58 (69) 92/51 (65) Pulse Ox 100 100 O2 Delivery Ventilator Mechanical Ventilator Ventilator 02/15/17 02/15/17 02/15/17 02/15/17 17:00 18:00 19:00 20:00 Pulse 91 89 92 Resp B/P (MAP) 93/56 (68) 83/58 (66) 86/57 (67) Pulse Ox 100 100 100 O2 Delivery Ventilator Ventilator Ventilator Mechanical Ventilator 02/15/17 02/15/17 02/15/17 02/15/17 20:00 20:50 21:00 22:00 Temp 96.3 96.3 Pulse 90 86 85 Resp B/P (MAP) 89/57 (68) 85/64 (71) 94/56 (69) Pulse Ox 100 100 100 100 O2 Delivery Ventilator Ventilator Ventilator Ventilator 02/15/17 02/15/17 02/15/17 02/16/17 23:00 23:24 23:59 00:00 Temp 97.9 97.9 Pulse 90 90 Resp B/P (MAP) 91/53 (66) 93/58 (70) Pulse Ox 100 100 100 O2 Delivery Ventilator Ventilator Mechanical Ventilator Ventilator 02/16/17 02/16/17 02/16/17 02/16/17 01:00 02:00 02:31 03:00 Pulse 90 92 90 Resp 26 B/P (MAP) 87/46 (60) 109/66 (80) 86/47 (60) Pulse Ox 100 100 100 100 O2 Delivery Ventilator Ventilator Ventilator Ventilator 02/16/17 02/16/17 02/16/17 02/16/17 04:00 04:00 04:36 05:00 Temp 97.8 97.8 Pulse 93 91 Resp B/P (MAP) 103/61 (75) 95/56 (69) Pulse Ox 98 100 100 O2 Delivery Ventilator Mechanical Ventilator Ventilator Ventilator 02/16/17 02/16/17 02/16/17 02/16/17 05:57 06:00 07:00 08:00 Temp 98.7 98.7 Pulse 103 102 Resp B/P (MAP) 97/58 (71) 85/56 (66) Pulse Ox 100 100 100 O2 Delivery Ventilator Ventilator Ventilator Mechanical Ventilator 02/16/17 02/16/17 02/16/17 02/16/17 08:00 08:29 09:00 10:00 Temp 98.7 98.7 Pulse 107 102 98 Resp 30 30 B/P (MAP) 104/61 (75) 116/65 (82) 112/73 (86) Pulse Ox 99 100 100 100 O2 Delivery Ventilator Ventilator Ventilator Ventilator 02/16/17 02/16/17 02/16/17 02/16/17 10:06 11:00 12:00 12:00 Temp 98.4 98.4 Pulse 90 88 Resp 30 30 B/P (MAP) 104/54 (71) 91/65 (74) Pulse Ox 100 100 100 O2 Delivery Ventilator Ventilator Ventilator Mechanical Ventilator 02/16/17 12:12 Pulse Ox 100 O2 Delivery Ventilator Intake and Output 02/16/17 02/16/17 02/17/17 15:00 23:00 07:00 Intake Total 50 ml Output Total 5 ml Balance 45 ml CHRISTIAN LANGLEY MD Feb 16, 2017 16:00
[2017-02-16] MEDS: IV DEXTROSE 5 %-0.2 % NACL 1,000 ML IV SCH (17:03)
[2017-02-17] VITALS (25 sets, daily range): BP systolic 106–140; BP diastolic 56–79
[2017-02-17] MEDS: PIPERACILLIN/TAZOBACTAM 2.25 GM in IV NORMAL SALINE 50ML 50 ML IV SCH ×3 (06:09→21:52)
[2017-02-17 06:58] LABS: ALBUMIN 2.4 g/dL (3.4-5.0); CREATININE 4.4 mg/dL (0.6-1.0); GFR 12.6; PHOSPHORUS 4.4 mg/dL (2.6-4.7); POTASSIUM 4.3 mmol/L (3.5-5.1)
--- NOTE | 2017-02-17 07:24 | RAD ---
Portable chest, 02/17/2017: History: Respiratory failure Comparison is made to a study from 02/16/2017. The ET tube, NG tube and bilateral jugular venous catheters remain in place in satisfactory positions. The heart size is normal. There is minimal ongoing right lung infiltrates superimposed upon probable fibrosis. No new pulmonary abnormality is seen. There is no evidence of pneumothorax or significant pleural fluid. IMPRESSION: No significant change since yesterday's exam.
--- NOTE | 2017-02-17 07:28 | PDOC ---
Infectious Disease Note Subjective Subjective Off sedation, minimally responsive per RN Intubated/vent. FiO2 40% Decrease UO. 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 (02/13). clean [facility]. (02/15). Labs Lab Laboratory Tests Test 02/16/17 08:00 02/16/17 20:35 02/17/17 00:15 02/17/17 06:10 O2 Saturation 95 % (92-99) Arterial Blood pH 7.32 (7.35-7.45) Arterial Blood pCO2 at Patient Temp 51 mmHg (35-46) Arterial Blood pO2 at Patient Temp 80 mmHg (75-108) Arterial Blood HCO3 26 mmol/L (21-28) Arterial Blood Base Excess -1 mmol/L (-3-3) FiO2 40 Sodium Level 126 mmol/L (136-145) 131 mmol/L (136-145) 128 mmol/L (136-145) Potassium Level 4.3 mmol/L (3.5-5.1) Chloride Level 93 mmol/L (98-107) Carbon Dioxide Level 21 mmol/L (21-32) Anion Gap 14 (6-14) Blood Urea Nitrogen 66 mg/dL (7-20) Creatinine 4.4 mg/dL (0.6-1.0) Estimated GFR (Cockcroft-Gault) 12.6 Glucose Level 129 mg/dL (70-99) Calcium Level 8.0 mg/dL (8.5-10.1) Phosphorus Level 4.4 mg/dL (2.6-4.7) Magnesium Level 2.1 mg/dL (1.8-2.4) Albumin 2.4 g/dL (3.4-5.0) Objective Assessment MRSA sepsis/bacteremia, POA. 02/12. -TTE no evidence veg; Repeat BC from 02/15 neg Encephalopathy - nonresponsive S/P Cardiac arrest Respiratory failure COPD Leukocytosis - better, on steroids DARYA. Now on HD Schizophrenia MRSA nares positive Hyponatremia Plan Plan of Care Repeat Dapto one dose, 02/15 cont Zosyn, dose adjusted for renal function Last dose vanc 02/13 8pm Repeat BC pending Critically ill JAVIER HUGHES MD Feb 17, 2017 07:28
[2017-02-17] MEDS ORDERED: ALBUMIN HUMAN 25% 200 ML IV PRN (08:30)
[2017-02-17] MEDS ORDERED: DIALYSIS PATIENT. MC PRN ×2 (08:30)
[2017-02-17] MEDS ORDERED: IV NORMAL SALINE 1000ML BAG 1,000 ML IV PRN ×2 (08:30)
--- NOTE | 2017-02-17 08:51 | PDOC ---
PULMONARY PROGRESS NOTES Subjective REMAINS INTUBATED OFF SEDATION Vitals Vital Signs Date Time Temp Pulse Resp B/P (MAP) Pulse Ox O2 Delivery O2 Flow Rate FiO2 02/17/17 08:00 Mechanical Ventilator 02/17/17 08:00 99.2 71 24 124/73 (90) 100 99.2 Lungs: Clear Cardiovascular: S1, S2 Abdomen: Soft Extremities: No Edema, Other Skin: Warm, Dry Labs Laboratory Tests Test 02/15/17 11:35 02/16/17 04:11 02/16/17 05:20 02/16/17 08:00 Sodium Level 124 mmol/L (136-145) 124 mmol/L (136-145) Urine Random Sodium <60 mmol/L (Not Estab.) White Blood Count 16.1 x10^3/uL (4.0-11.0) Red Blood Count 2.86 x10^6/uL (3.50-5.40) Hemoglobin 9.4 g/dL (12.0-15.5) Hematocrit 28.3 % (36.0-47.0) Mean Corpuscular Volume 99 fL (79-100) Mean Corpuscular Hemoglobin 33 pg (25-35) Mean Corpuscular Hemoglobin Concent 33 g/dL (31-37) Red Cell Distribution Width 14.2 % (11.5-14.5) Platelet Count 118 x10^3/uL (140-400) Neutrophils (%) (Auto) 96 % (31-73) Lymphocytes (%) (Auto) 3 % (24-48) Monocytes (%) (Auto) 1 % (0-9) Eosinophils (%) (Auto) 0 % (0-3) Basophils (%) (Auto) 0 % (0-3) Neutrophils # (Auto) 15.4 x10^3uL (1.8-7.7) Lymphocytes # (Auto) 0.4 x10^3/uL (1.0-4.8) Monocytes # (Auto) 0.2 x10^3/uL (0.0-1.1) Eosinophils # (Auto) 0.0 x10^3/uL (0.0-0.7) Basophils # (Auto) 0.0 x10^3/uL (0.0-0.2) Potassium Level 5.1 mmol/L (3.5-5.1) Chloride Level 91 mmol/L (98-107) Carbon Dioxide Level 18 mmol/L (21-32) Anion Gap 15 (6-14) Blood Urea Nitrogen 67 mg/dL (7-20) Creatinine 4.5 mg/dL (0.6-1.0) Estimated GFR (Cockcroft-Gault) 12.3 BUN/Creatinine Ratio 15 (6-20) Glucose Level 111 mg/dL (70-99) Calcium Level 7.5 mg/dL (8.5-10.1) Phosphorus Level 5.8 mg/dL (2.6-4.7) Magnesium Level 2.0 mg/dL (1.8-2.4) Total Bilirubin 2.2 mg/dL (0.2-1.0) Aspartate Amino Transf (AST/SGOT) 600 U/L (15-37) Alanine Aminotransferase (ALT/SGPT) 1568 U/L (14-59) Alkaline Phosphatase 72 U/L (46-116) Total Protein 5.5 g/dL (6.4-8.2) Albumin 2.3 g/dL (3.4-5.0) Albumin/Globulin Ratio 0.7 (1.0-1.7) O2 Saturation 95 % (92-99) Arterial Blood pH 7.32 (7.35-7.45) Arterial Blood pCO2 at Patient Temp 51 mmHg (35-46) Arterial Blood pO2 at Patient Temp 80 mmHg (75-108) Arterial Blood HCO3 26 mmol/L (21-28) Arterial Blood Base Excess -1 mmol/L (-3-3) FiO2 40 Test 02/16/17 20:35 02/17/17 00:15 02/17/17 06:10 Sodium Level 126 mmol/L (136-145) 131 mmol/L (136-145) 128 mmol/L (136-145) Potassium Level 4.3 mmol/L (3.5-5.1) Chloride Level 93 mmol/L (98-107) Carbon Dioxide Level 21 mmol/L (21-32) Anion Gap 14 (6-14) Blood Urea Nitrogen 66 mg/dL (7-20) Creatinine 4.4 mg/dL (0.6-1.0) Estimated GFR (Cockcroft-Gault) 12.6 Glucose Level 129 mg/dL (70-99) Calcium Level 8.0 mg/dL (8.5-10.1) Phosphorus Level 4.4 mg/dL (2.6-4.7) Magnesium Level 2.1 mg/dL (1.8-2.4) Albumin 2.4 g/dL (3.4-5.0) Laboratory Tests Test 02/16/17 20:35 02/17/17 00:15 02/17/17 06:10 Sodium Level 126 mmol/L (136-145) 131 mmol/L (136-145) 128 mmol/L (136-145) Potassium Level 4.3 mmol/L (3.5-5.1) Chloride Level 93 mmol/L (98-107) Carbon Dioxide Level 21 mmol/L (21-32) Anion Gap 14 (6-14) Blood Urea Nitrogen 66 mg/dL (7-20) Creatinine 4.4 mg/dL (0.6-1.0) Estimated GFR (Cockcroft-Gault) 12.6 Glucose Level 129 mg/dL (70-99) Calcium Level 8.0 mg/dL (8.5-10.1) Phosphorus Level 4.4 mg/dL (2.6-4.7) Magnesium Level 2.1 mg/dL (1.8-2.4) Albumin 2.4 g/dL (3.4-5.0) Medications Active Scripts Medications Dose Route/Sig Max Daily Dose Days Date Category Latuda (Lurasidone Hcl) 20 Mg Tablet 20 Mg PO AFTRNOON 02/12/17 Reported Remeron (Mirtazapine) 15 Mg Tablet 1 Tab PO QHS 02/12/17 Reported Oxybutynin Chloride Er (Oxybutynin Chloride) 10 Mg Tab.er.24 1 Tab PO DAILY 02/12/17 Reported Multivitamins (Multivitamin) 1 Each Tablet 1 Tab PO DAILY 02/12/17 Reported Latuda (Lurasidone Hcl) 20 Mg Tablet 10 Mg PO AFTRNOON 02/12/17 Reported Lorazepam 0.5 Mg Tablet 1 Tab PO QEVNG 02/12/17 Reported Duoneb 0.5-3(2.5) Mg/3 Ml (Albuterol/Ipratropium) 3 Ml Ampul.neb 3 Ml NEB BID 02/12/17 Reported Duoneb 0.5-3(2.5) Mg/3 Ml (Albuterol/Ipratropium) 3 Ml Ampul.neb 3 Ml NEB Q4H PRN 02/12/17 Reported Calcium Carbonate 500 Mg Tablet 1,000 Mg PO Q4HRS PRN 02/12/17 Reported Nicotine Gum (Nicotine Polacrilex) 4 Mg Gum 4 Mg BC 02/12/17 Reported Milk Of Magnesia (Magnesium Hydroxide) 400 Mg/5 Ml Oral.susp 400 Mg PO Q3DAYS PRN 02/12/17 Reported Milk Of Magnesia (Magnesium Hydroxide) 400 Mg/5 Ml Oral.susp 400 Mg PO Q3DAYS PRN 02/12/17 Reported Lorazepam 1 Mg Tablet 1 Tab PO Q12HR PRN 02/12/17 Reported Ibuprofen 400 Mg Tablet 200 Mg PO Q8HRS PRN 02/12/17 Reported Cough Drops (Eucalyptus Oil/Menthol) 7 Mg Lozenge 7 Mg MM Q4HRS PRN 02/12/17 Reported Tylenol (Acetaminophen) 325 Mg Tablet 650 Mg PO Q4HRS PRN 02/12/17 Reported Lovaza ([place]-3 Acid Ethyl Esters) 1 Gm Capsule 1 Cap PO QID 02/12/17 Reported Gabapentin 400 Mg Capsule 400 Mg PO QID 02/12/17 Reported Lorazepam 1 Mg Tablet 1 Tab PO BID 02/12/17 Reported Latuda (Lurasidone Hcl) 60 Mg Tablet 60 Mg PO BID 02/12/17 Reported Advair 100-50 Diskus (Fluticasone/Salmeterol) 1 Each Disk.w.dev 1 Puff IH BID 02/12/17 Reported Acetaminophen 325 Mg Capsule 650 Mg PO BID 02/12/17 Reported Vitamin D (Cholecalciferol (Vitamin D3)) 2,000 Unit Capsule 800 Unit PO DAILY 02/12/17 Reported Comments REVIEWED NO CHANGE Impression . 1. Acute respiratory failure, sec to out of hospital arrest 2. Acute toxic/metabolic encephalopathy 3. Status post cardiac arrest. She had asystole. Possible anoxic brain injury 4. Abnormal echocardiogram with ejection fraction of 35%. 5. Hyponatremia 6. Abnormal LFTs secondary to hypoperfusion. 7. Acute renal failure. 8. Shock, combination of cardiogenic,septic/ OFF PRESSOR Plan . 1. Continue with present assist control mode pt not ready for wean, will await neuro improvement 2. Antibx per ID 3. Latic acidosis improved 4. HD 5. DVT prophylaxis. still has high INR 6. Stress ulcer prophylaxis with Pepcid. 7. off vasopressor. 8. venous Dopplers of lower extremities neg for DVT 9. Would favor no further resuscitation efforts if code again LORENZO HAYNES MD Feb 17, 2017 08:51
--- NOTE | 2017-02-17 08:59 | PDOC ---
PROGRESS NOTES Chief Complaint Chief Complaint cardiac arrest, asystole, unknown down time, s/p hypothermia Anoxic encephalopathy, off sedation x 2 days no response Normal corrected calcium OLIGURIC RENAL FAILURE noW NEW HD SNU resident HX schiz by documentation Sepsis with organ failure, needing pressor THrombocytopenia ANemia, normocytic Hyponatremia History of Present Illness History of Present Illness Seen in ICU, intubated,off LEVOPHED Not sedated but not awake Withdraws only to pain New HD - 2-3 sessions already UO still ZERO CReat 4.4 NA 128, K and bicarb ok WBC 16 from 24, HGb 9 stable PLAN: HD per renal PAlliative getting a hold of DPOA Supportive meds NO nephrotoxins ANoxic, so far full code - PAllaitive on board to help address code status Prognosis poor, non responsive Cont TF Start dvt ppx with heparin SQ ( monitor thrombocytopenia) MOnitor anemia COnsider changing IVF to NS (dextrose iVF ordered by renal) 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 Vitals Vital Signs Date Time Temp Pulse Resp B/P (MAP) Pulse Ox O2 Delivery O2 Flow Rate FiO2 02/17/17 08:00 Mechanical Ventilator 02/17/17 08:00 99.2 71 24 124/73 (90) 100 99.2 Physical Exam General: Other (SEDATE ON VENT) Heart: Regular rate, Normal S1, Normal S2, No murmurs, Gallops Lungs: Other (decrease bs) Abdomen: Normal bowel sounds, Soft, No tenderness, No hepatosplenomegaly, No masses Extremities: No clubbing, No cyanosis, No edema, Normal pulses, No tenderness/ swelling Skin: No breakdown, No significant lesion Labs LABS Laboratory Tests Test 02/16/17 20:35 02/17/17 00:15 02/17/17 06:10 Sodium Level 126 mmol/L (136-145) 131 mmol/L (136-145) 128 mmol/L (136-145) Potassium Level 4.3 mmol/L (3.5-5.1) Chloride Level 93 mmol/L (98-107) Carbon Dioxide Level 21 mmol/L (21-32) Anion Gap 14 (6-14) Blood Urea Nitrogen 66 mg/dL (7-20) Creatinine 4.4 mg/dL (0.6-1.0) Estimated GFR (Cockcroft-Gault) 12.6 Glucose Level 129 mg/dL (70-99) Calcium Level 8.0 mg/dL (8.5-10.1) Phosphorus Level 4.4 mg/dL (2.6-4.7) Magnesium Level 2.1 mg/dL (1.8-2.4) Albumin 2.4 g/dL (3.4-5.0) Review of Systems Review of Systems intubated Assessment and Plan Assessmemt and Plan Problems Medical Problems: (1) Cardiac arrest Status: Acute (2) Elevated troponin Status: Acute (3) Hyperkalemia Status: Acute (4) Hypoglycemia Status: Acute (5) Hyponatremia Status: Acute Problems: Comment Review of Relevant I have reviewed the following items reji (where applicable) has been applied. Labs Laboratory Tests Test 02/15/17 11:35 02/16/17 04:11 02/16/17 05:20 02/16/17 08:00 Sodium Level 124 mmol/L (136-145) 124 mmol/L (136-145) Urine Random Sodium <60 mmol/L (Not Estab.) White Blood Count 16.1 x10^3/uL (4.0-11.0) Red Blood Count 2.86 x10^6/uL (3.50-5.40) Hemoglobin 9.4 g/dL (12.0-15.5) Hematocrit 28.3 % (36.0-47.0) Mean Corpuscular Volume 99 fL (79-100) Mean Corpuscular Hemoglobin 33 pg (25-35) Mean Corpuscular Hemoglobin Concent 33 g/dL (31-37) Red Cell Distribution Width 14.2 % (11.5-14.5) Platelet Count 118 x10^3/uL (140-400) Neutrophils (%) (Auto) 96 % (31-73) Lymphocytes (%) (Auto) 3 % (24-48) Monocytes (%) (Auto) 1 % (0-9) Eosinophils (%) (Auto) 0 % (0-3) Basophils (%) (Auto) 0 % (0-3) Neutrophils # (Auto) 15.4 x10^3uL (1.8-7.7) Lymphocytes # (Auto) 0.4 x10^3/uL (1.0-4.8) Monocytes # (Auto) 0.2 x10^3/uL (0.0-1.1) Eosinophils # (Auto) 0.0 x10^3/uL (0.0-0.7) Basophils # (Auto) 0.0 x10^3/uL (0.0-0.2) Potassium Level 5.1 mmol/L (3.5-5.1) Chloride Level 91 mmol/L (98-107) Carbon Dioxide Level 18 mmol/L (21-32) Anion Gap 15 (6-14) Blood Urea Nitrogen 67 mg/dL (7-20) Creatinine 4.5 mg/dL (0.6-1.0) Estimated GFR (Cockcroft-Gault) 12.3 BUN/Creatinine Ratio 15 (6-20) Glucose Level 111 mg/dL (70-99) Calcium Level 7.5 mg/dL (8.5-10.1) Phosphorus Level 5.8 mg/dL (2.6-4.7) Magnesium Level 2.0 mg/dL (1.8-2.4) Total Bilirubin 2.2 mg/dL (0.2-1.0) Aspartate Amino Transf (AST/SGOT) 600 U/L (15-37) Alanine Aminotransferase (ALT/SGPT) 1568 U/L (14-59) Alkaline Phosphatase 72 U/L (46-116) Total Protein 5.5 g/dL (6.4-8.2) Albumin 2.3 g/dL (3.4-5.0) Albumin/Globulin Ratio 0.7 (1.0-1.7) O2 Saturation 95 % (92-99) Arterial Blood pH 7.32 (7.35-7.45) Arterial Blood pCO2 at Patient Temp 51 mmHg (35-46) Arterial Blood pO2 at Patient Temp 80 mmHg (75-108) Arterial Blood HCO3 26 mmol/L (21-28) Arterial Blood Base Excess -1 mmol/L (-3-3) FiO2 40 Test 02/16/17 20:35 02/17/17 00:15 02/17/17 06:10 Sodium Level 126 mmol/L (136-145) 131 mmol/L (136-145) 128 mmol/L (136-145) Potassium Level 4.3 mmol/L (3.5-5.1) Chloride Level 93 mmol/L (98-107) Carbon Dioxide Level 21 mmol/L (21-32) Anion Gap 14 (6-14) Blood Urea Nitrogen 66 mg/dL (7-20) Creatinine 4.4 mg/dL (0.6-1.0) Estimated GFR (Cockcroft-Gault) 12.6 Glucose Level 129 mg/dL (70-99) Calcium Level 8.0 mg/dL (8.5-10.1) Phosphorus Level 4.4 mg/dL (2.6-4.7) Magnesium Level 2.1 mg/dL (1.8-2.4) Albumin 2.4 g/dL (3.4-5.0) Laboratory Tests Test 02/16/17 20:35 02/17/17 00:15 02/17/17 06:10 Sodium Level 126 mmol/L (136-145) 131 mmol/L (136-145) 128 mmol/L (136-145) Potassium Level 4.3 mmol/L (3.5-5.1) Chloride Level 93 mmol/L (98-107) Carbon Dioxide Level 21 mmol/L (21-32) Anion Gap 14 (6-14) Blood Urea Nitrogen 66 mg/dL (7-20) Creatinine 4.4 mg/dL (0.6-1.0) Estimated GFR (Cockcroft-Gault) 12.6 Glucose Level 129 mg/dL (70-99) Calcium Level 8.0 mg/dL (8.5-10.1) Phosphorus Level 4.4 mg/dL (2.6-4.7) Magnesium Level 2.1 mg/dL (1.8-2.4) Albumin 2.4 g/dL (3.4-5.0) Microbiology 02/15/17 Blood Culture - Preliminary, Resulted NO GROWTH AFTER 1 DAY 02/12/17 Urine Culture - Final, Complete 02/12/17 Urine Culture Result 1 (ELIZABETH) - Final, Complete Medications Current Medications Calcium Chloride 1,000 mg 1X ONCE IV Last administered on 02/12/17 15:35; Start 02/12/17 at 16:00; Stop 02/12/17 at 16:35; Status DC Dextrose (Dextrose 50%-Water Syringe) 25 gm 1X ONCE IV Last administered on 15:33; Start 02/12/17 at 16:00; Stop 02/12/17 at 16:35; Status DC Sodium Bicarbonate 50 meq 1X ONCE IV Last administered on 02/12/17 15:35; Start 02/12/17 at 16:00; Stop 02/12/17 at 16:35; Status DC Furosemide (Lasix) 40 mg 1X ONCE IVP Last administered on 02/12/17 16:42; Start 02/12/17 at 16:30; Stop 02/12/17 at 16:35; Status DC Sodium Chloride 1,000 ml @ 1,000 mls/hr Q1H IV Last administered on 02/12/17 15:50; Start 02/12/17 at 16:57; Stop 02/13/17 at 07:23; Status DC Fentanyl Citrate (Fentanyl 2ml Vial) 25 mcg PRN Q30MIN PRN IV SED; Start at 17:00 Lorazepam (Ativan) 1 mg PRN Q30MIN PRN IV SEDATION; Start 02/12/17 at 17:00 Fentanyl Citrate 30 ml @ 2.5 mls/hr CONT PRN PRN IV IVF Last administered on 03:27; Start 02/12/17 at 17:00 Propofol 100 ml @ 0 mls/hr CONT PRN IV SEE I/O RECORD; Start 02/12/17 at 17:00 Vecuronium [place] (Norcuron Bolus) DOSE AT 0.1 mg/kg PRN Q30MIN PRN IV SHIVERING Last administered on 02/12/17 19:46; Start 02/12/17 at 17:00; Stop 02/13 at 11:01; Status DC Meperidine HCl (Demerol) 12.5 mg PRN Q30MIN PRN IV SHIVERING; Start 02/12/17 at 17:00 Multi-Ingred Cream/Lotion/Oil/ Oint (Artificial Tears Eye Oint) 1 silvestre PRN Q6HRS PRN OU 0.5 INCH FOR DRY EYE; Start 02/12/17 at 17:00 Famotidine (Pepcid) 20 mg BID IVP Last administered on 02/14/17 10:47; Start at 09:00; Stop 02/14/17 at 16:23; Status DC Aspirin (Aspirin) 300 mg DAILY [place] Last administered on 02/16/17 09:13; Start 02/13/17 at 09:00 Sodium Chloride (Normal Saline Flush) 3 ml QSHIFT PRN IV AFTER MEDS AND BLOOD DRAWS; Start 02/12/17 at 17:00 Acetaminophen (Tylenol) 650 mg Q6HRS NG Last administered on 02/13/17 05:51; Start 02/12/17 at 18:00; Stop 02/13/17 at 17:59; Status DC Acetaminophen (Acetaminophen Supp) 650 mg PRN Q6HRS PRN [place] MILD PAIN / TEMP; Start 02/13/17 at 17:00 Acetaminophen (Tylenol) 650 mg PRN Q6HRS PRN NG MILD PAIN / TEMP; Start at 17:00 Info 1 ea DAILY PRN MC PER PROTOCOL; Start 02/14/17 at 17:00 Sodium Chloride 500 ml @ 500 mls/hr 1X ONCE IV Last administered on 02/12/17 16:30; Start 02/12/17 at 17:15; Stop 02/12/17 at 18:14; Status DC Sodium Chloride 500 ml @ 500 mls/hr 1X ONCE IV Last administered on 02/12/17 16:50; Start 02/12/17 at 17:15; Stop 02/12/17 at 18:14; Status DC Sodium Chloride 1,000 ml @ 100 mls/hr Q10H IV Last administered on 02/13/17 06 :36; Start 02/12/17 at 19:00; Stop 02/13/17 at 10:51; Status DC Famotidine (Pepcid) 20 mg 1X ONCE PO Last administered on 02/12/17 19:57; Start 02/12/17 at 17:30; Stop 02/12/17 at 17:34; Status DC Methylprednisolone Sodium Succinate (SOLU-Medrol 40MG VIAL) 100 mg TID IV Last administered on 02/14/17 11:01; Start 02/12/17 at 18:00; Stop 02/14/17 at 12:00; Status DC Sodium Chloride 1,000 ml @ 1,000 mls/hr 1X ONCE IV Last administered on 19:31; Start 02/12/17 at 18:15; Stop 02/12/17 at 19:14; Status DC Piperacillin Sod/ Tazobactam Sod (Zosyn Per Pharmacy) 1 each PRN DAILY PRN MC SEE COMMENTS; Start 02/12/17 at 19:15 Vancomycin HCl (Vanco Per Pharmacy) 1 each PRN DAILY PRN MC SEE COMMENTS Last administered on 02/13/17 16:50; Start 02/12/17 at 19:15; Stop 02/14/17 at 07:57; Status DC Piperacillin Sod/ Tazobactam Sod 3.375 gm/Sodium Chloride 50 ml @ 100 mls/hr Q6HRS IV Last administered on 02/15/17 05:58; Start 02/12/17 at 19:30; Stop 02/15 at 09:37; Status DC Vancomycin HCl 1 gm/Sodium Chloride 250 ml @ 250 mls/hr 1X ONCE IV Last administered on 02/12/17 20:00; Start 02/12/17 at 19:30; Stop 02/12/17 at 20:29; Status DC Sodium Bicarbonate 50 meq 1X ONCE IV Last administered on 02/12/17 19:59; Start 02/12/17 at 19:30; Stop 02/12/17 at 19:31; Status DC Norepinephrine Bitartrate 250 ml @ 0 mls/hr CONT PRN IV SEE I/O RECORD Last administered on 02/16/17 07:18; Start 02/12/17 at 19:30 Norepinephrine Bitartrate 250 ml @ As Directed STK-MED ONCE IV ; Start 02/12/17 at 19:25; Stop 02/12/17 at 19:26; Status DC Vancomycin HCl 750 mg/Sodium Chloride 250 ml @ 250 mls/hr Q24H IV Last administered on 02/13/17 20:34; Start 02/13/17 at 20:00; Stop 02/14/17 at 07:57; Status DC Vancomycin HCl 1 each 1X ONCE MC ; Start 02/14/17 at 19:30; Stop 02/14/17 at 19: 31; Status Cancel Sodium Chloride 1,000 ml @ 1,000 mls/hr 1X ONCE IV Last administered on 05:05; Start 02/13/17 at 04:45; Stop 02/13/17 at 05:44; Status DC Sodium Chloride 1,000 ml @ 1,000 mls/hr 1X ONCE IV Last administered on 05:35; Start 02/13/17 at 05:30; Stop 02/13/17 at 06:29; Status DC Magnesium Sulfate/ Dextrose 50 ml @ 25 mls/hr PRN DAILY PRN IV for Mag < 1.7 on am labs; Start 02/13/17 at 10:45 Dextrose/Sodium Chloride 1,000 ml @ 75 mls/hr [id number] IV Last administered on 02/15/17 01:52; Start 02/13/17 at 11:00; Stop 02/15/17 at 08:52; Status DC Vecuronium [place] (Norcuron Bolus) 5 mg PRN Q30MIN PRN IV SHIVERING; Start 02/13/17 at 11:15 Lidocaine/Sodium Bicarbonate (Buffered Lidocaine 1%) 3 ml 1X ONCE IJ Last administered on 02/13/17 11:40; Start 02/13/17 at 11:15; Stop 02/13/17 at 11:26; Status DC Heparin Sodium/ Sodium Chloride 60 unit 1X ONCE IV Last administered on 11:40; Start 02/13/17 at 11:15; Stop 02/13/17 at 11:26; Status DC Lidocaine/Sodium Bicarbonate (Buffered Lidocaine 1%) 20 ml STK-MED ONCE IJ ; Start 02/13/17 at 11:22; Stop 02/13/17 at 11:29; Status DC Heparin Sodium (Porcine) (Heparin Sodium) 2,075 unit 1X ONCE IV Last administered on 02/13/17 12:45; Start 02/13/17 at 11:45; Stop 02/13/17 at 11:56; Status DC Heparin Sodium/ Dextrose 500 ml @ 16.5 mls/hr CONT PRN IV SEE I/O RECORD Last administered on 02/13/17 12:47; Start 02/13/17 at 11:45; Stop 02/14/17 at 13:53; Status DC Heparin Sodium (Porcine) (Heparin Sodium) 1,550 unit PRN Q6HRS PRN IV FOR UFH LEVEL LESS THAN 0.2 Last administered on 02/13/17 20:22; Start 02/13/17 at 11:45 ; Stop 02/14/17 at 13:53; Status DC Heparin Sodium (Porcine) (Heparin Sodium) 800 unit PRN Q6HRS PRN IV FOR UFH LEVEL 0.2 - 0.29 Last administered on 02/14/17 02:34; Start 02/13/17 at 11:45; Stop 02/14/17 at 13:53; Status DC Warfarin Sodium (Coumadin Per Pharmacy) 1 each PRN DAILY PRN MC PER PROTOCOL; Start 02/13/17 at 11:45; Status Cancel Info (Anti-Coagulation Monitoring By Pharmacy) 1 each PRN DAILY PRN MC SEE COMMENTS; Start 02/13/17 at 13:00; Stop 02/14/17 at 16:28; Status DC Calcium Chloride 1,000 mg STK-MED ONCE IV ; Start 02/12/17 at 10:00; Stop at 16:27; Status DC Epinephrine HCl (EPINEPHrine SYRINGE) 1 mg STK-MED ONCE .ROUTE ; Start 02/12/17 at 10:00; Stop 02/13/17 at 16:27; Status DC Dextrose (Dextrose 50%-Water Syringe) 25 gm STK-MED ONCE IV ; Start 02/12/17 at 10:00; Stop 02/13/17 at 16:27; Status DC Sodium Bicarbonate 50 meq STK-MED ONCE .ROUTE ; Start 02/12/17 at 10:00; Stop 02/13/17 at 16:27; Status DC Methylprednisolone Sodium Succinate (SOLU-Medrol 125MG VIAL) 100 mg TID IV Last administered on 02/16/17 21:08; Start 02/14/17 at 18:00 Norepinephrine Bitartrate 250 ml @ 0 mls/hr CONT PRN IV SEE I/O RECORD; Start 02/14/17 at 15:30; Status Cancel Famotidine (Pepcid) 20 mg DAILY IVP Last administered on 02/16/17 09:13; Start 02/15/17 at 09:00 Amino Acids/ Glycerin/ Electrolytes 1,000 ml @ 80 mls/hr [id number] IV Last administered on 02/15/17 09:32; Start 02/15/17 at 08:45; Stop 02/15/17 at 15:14; Status DC Albumin Human 100 ml @ 100 mls/hr 1X ONCE IV Last administered on 02/15/17 09 :30; Start 02/15/17 at 08:45; Stop 02/15/17 at 09:44; Status DC Furosemide (Lasix) 40 mg 1X ONCE IVP ; Start 02/15/17 at 08:45; Stop 02/15/17 at 09:18; Status DC Piperacillin Sod/ Tazobactam Sod 2.25 gm/Sodium Chloride 50 ml @ 100 mls/hr Q6HRS IV Last administered on 02/16/17 05:52; Start 02/15/17 at 12:00; Stop 03/25 at 09:17; Status DC Daptomycin 340 mg/ Sodium Chloride 50 ml @ 100 mls/hr ONCE ONCE IV Last administered on 02/15/17 11:15; Start 02/15/17 at 11:15; Stop 02/15/17 at 11:44; Status DC Dextrose/Sodium Chloride 1,000 ml @ 40 mls/hr Q24H IV Last administered on 17:03; Start 02/15/17 at 15:15 Lidocaine/Sodium Bicarbonate (Buffered Lidocaine 1%) 3 ml 1X ONCE IJ Last administered on 02/15/17 16:00; Start 02/15/17 at 15:45; Stop 02/15/17 at 15:46; Status DC Heparin Sodium/ Sodium Chloride 6,000 unit 1X ONCE IV ; Start 02/15/17 at 15:45 ; Stop 02/15/17 at 15:46; Status DC Sodium Chloride 1,000 ml @ 1,000 mls/hr Q1H PRN IV hypotension; Start 02/16/17 at 06:38; Stop 02/16/17 at 12:37; Status DC Info (PHARMACY MONITORING -- do not chart) 1 each PRN DAILY PRN MC SEE COMMENTS ; Start 02/16/17 at 06:45 Info (PHARMACY MONITORING -- do not chart) 1 each PRN DAILY PRN MC SEE COMMENTS ; Start 02/16/17 at 06:45; Stop 02/16/17 at 09:19; Status DC Info (PHARMACY MONITORING -- do not chart) 1 each PRN DAILY PRN MC SEE COMMENTS ; Start 02/16/17 at 06:45; Stop 02/16/17 at 09:19; Status DC Albumin Human 100 ml @ 100 mls/hr 1X ONCE IV Last administered on 02/16/17 07:18; Start 02/16/17 at 07:00; Stop 02/16/17 at 07:59; Status DC Piperacillin Sod/ Tazobactam Sod 2.25 gm/Sodium Chloride 50 ml @ 100 mls/hr Q8HRS IV Last administered on 02/17/17t 06:09; Start 02/16/17 at 14:00 Daptomycin 340 mg/ Sodium Chloride 50 ml @ 100 mls/hr QODAY IV ; Start at 09:00 Sodium Chloride 1,000 ml @ 1,000 mls/hr Q1H PRN IV hypotension; Start 02/17/17 at 08:30; Stop 02/17/17 at 16:00 Albumin Human 200 ml @ 200 mls/hr 1X PRN PRN IV Hypotension; Start 02/17/17 at 08:30; Stop 02/17/17 at 16:00 Sodium Chloride 1,000 ml @ 400 mls/hr Q2H30M PRN IV PATENCY; Start 02/17/17 at 08:30; Stop 02/17/17 at 16:00 Info (PHARMACY MONITORING -- do not chart) 1 each PRN DAILY PRN MC SEE COMMENTS ; Start 02/17/17 at 08:30; Status UNV Info (PHARMACY MONITORING -- do not chart) 1 each PRN DAILY PRN MC SEE COMMENTS ; Start 02/17/17 at 08:30; Status UNV Active Scripts Active Reported Latuda (Lurasidone Hcl) 20 Mg Tablet 20 Mg PO AFTRNOON Remeron (Mirtazapine) 15 Mg Tablet 1 Tab PO QHS Oxybutynin Chloride Er (Oxybutynin Chloride) 10 Mg Tab.er.24 1 Tab PO DAILY Multivitamins (Multivitamin) 1 Each Tablet 1 Tab PO DAILY Latuda (Lurasidone Hcl) 20 Mg Tablet 10 Mg PO AFTRNOON Lorazepam 0.5 Mg Tablet 1 Tab PO QEVNG Duoneb 0.5-3(2.5) Mg/3 Ml (Albuterol/Ipratropium) 3 Ml Ampul.neb 3 Ml NEB BID Duoneb 0.5-3(2.5) Mg/3 Ml (Albuterol/Ipratropium) 3 Ml Ampul.neb 3 Ml NEB Q4H PRN Calcium Carbonate 500 Mg Tablet 1,000 Mg PO Q4HRS PRN Nicotine Gum (Nicotine Polacrilex) 4 Mg Gum 4 Mg BC Milk Of Magnesia (Magnesium Hydroxide) 400 Mg/5 Ml Oral.susp 400 Mg PO Q3DAYS PRN Milk Of Magnesia (Magnesium Hydroxide) 400 Mg/5 Ml Oral.susp 400 Mg PO Q3DAYS PRN Lorazepam 1 Mg Tablet 1 Tab PO Q12HR PRN Ibuprofen 400 Mg Tablet 200 Mg PO Q8HRS PRN Cough Drops (Eucalyptus Oil/Menthol) 7 Mg Lozenge 7 Mg MM Q4HRS PRN Tylenol (Acetaminophen) 325 Mg Tablet 650 Mg PO Q4HRS PRN Lovaza ([place]-3 Acid Ethyl Esters) 1 Gm Capsule 1 Cap PO QID Gabapentin 400 Mg Capsule 400 Mg PO QID Lorazepam 1 Mg Tablet 1 Tab PO BID Latuda (Lurasidone Hcl) 60 Mg Tablet 60 Mg PO BID Advair 100-50 Diskus (Fluticasone/Salmeterol) 1 Each Disk.w.dev 1 Puff IH BID Acetaminophen 325 Mg Capsule 650 Mg PO BID Vitamin D (Cholecalciferol (Vitamin D3)) 2,000 Unit Capsule 800 Unit PO DAILY Vitals/I & O Vital Sign - Last 24 Hours 02/16/17 02/16/17 02/16/17 02/16/17 09:00 10:00 10:06 11:00 Pulse 102 98 90 Resp 30 30 30 B/P (MAP) 116/65 (82) 112/73 (86) 104/54 (71) Pulse Ox 100 100 100 100 O2 Delivery Ventilator Ventilator Ventilator Ventilator 02/16/17 02/16/17 02/16/17 02/16/17 12:00 12:00 12:12 13:15 Temp 98.4 98.4 Pulse 88 Resp 30 B/P (MAP) 91/65 (74) Pulse Ox 100 100 100 O2 Delivery Ventilator Mechanical Ventilator Ventilator Ventilator 02/16/17 02/16/17 02/16/17 02/16/17 16:32 18:29 19:00 20:00 Pulse 86 Resp 29 B/P (MAP) 101/62 (75) Pulse Ox 100 100 100 O2 Delivery Ventilator Ventilator Ventilator Mechanical Ventilator 02/16/17 02/16/17 02/16/17 02/16/17 20:00 21:00 21:14 22:00 Temp 98.8 98.8 Pulse 87 90 89 Resp 30 30 30 B/P (MAP) 112/61 (78) 118/77 (91) 127/69 (88) Pulse Ox 100 100 100 100 O2 Delivery Ventilator Ventilator Ventilator Ventilator 02/16/17 02/16/17 02/17/17 02/17/17 23:00 23:45 00:00 00:00 Temp 99.0 99.0 Pulse 89 87 Resp 30 30 B/P (MAP) 118/66 (83) 112/61 (78) Pulse Ox 100 100 100 O2 Delivery Ventilator Ventilator Mechanical Ventilator Ventilator 02/17/17 02/17/17 02/17/17 02/17/17 01:00 02:00 02:20 03:00 Pulse 89 91 90 Resp 30 30 30 B/P (MAP) 125/72 (89) 134/72 (92) 128/68 (88) Pulse Ox 100 100 100 100 O2 Delivery Ventilator Ventilator Ventilator Ventilator 02/17/17 02/17/17 02/17/17 02/17/17 04:00 04:00 04:23 05:00 Temp 99.2 99.2 Pulse 92 90 Resp 30 30 B/P (MAP) 127/74 (91) 137/77 (97) Pulse Ox 100 100 100 O2 Delivery Mechanical Ventilator Ventilator Ventilator Ventilator 02/17/17 02/17/17 02/17/17 02/17/17 06:00 07:00 08:00 08:00 Temp 99.2 99.2 Pulse 92 82 71 Resp 30 17 24 B/P (MAP) 136/75 (95) 140/76 (97) 124/73 (90) Pulse Ox 100 100 100 O2 Delivery Ventilator Ventilator Ventilator Mechanical Ventilator Intake and Output 02/17/17 02/17/17 02/18/17 15:00 23:00 07:00 Intake Total 5 ml Output Total 0 ml Balance 5 ml BERONICA VILLATORO MD Feb 17, 2017 08:59
[2017-02-17 09:29] LABS: HCO3 ABG 27 mmol/L (21-28); PCO2 ABG 51 mmHg (35-46); PH ABG 7.35 (7.35-7.45); PO2 ABG 105 mmHg (75-108); SAT O2 ABG 97 % (92-99)
[2017-02-17 09:32] LABS: FIO2 ABG 40
--- NOTE | 2017-02-17 10:14 | PDOC ---
Renal-Progress Notes Subjective Notes Notes NONE History of Present Illness Hx of present illness NO CHANGE Vitals Vitals Vital Signs Date Time Temp Pulse Resp B/P (MAP) Pulse Ox O2 Delivery O2 Flow Rate FiO2 02/17/17 09:15 100 Ventilator 02/17/17 09:00 92 23 139/74 (95) 02/17/17 08:00 99.2 99.2 Weight Weight [ ] I.O. Intake and Output Intake and Output 02/18/17 07:00 Intake Total 5 ml Output Total 0 ml Balance 5 ml Tube Feeding 5 ml Output Urine Total 0 ml Gastric Drainage Total 0 ml Labs Labs Laboratory Tests Test 02/16/17 20:35 02/17/17 00:15 02/17/17 06:10 02/17/17 09:15 Sodium Level 126 mmol/L (136-145) 131 mmol/L (136-145) 128 mmol/L (136-145) Potassium Level 4.3 mmol/L (3.5-5.1) Chloride Level 93 mmol/L (98-107) Carbon Dioxide Level 21 mmol/L (21-32) Anion Gap 14 (6-14) Blood Urea Nitrogen 66 mg/dL (7-20) Creatinine 4.4 mg/dL (0.6-1.0) Estimated GFR (Cockcroft-Gault) 12.6 Glucose Level 129 mg/dL (70-99) Calcium Level 8.0 mg/dL (8.5-10.1) Phosphorus Level 4.4 mg/dL (2.6-4.7) Magnesium Level 2.1 mg/dL (1.8-2.4) Albumin 2.4 g/dL (3.4-5.0) O2 Saturation 97 % (92-99) Arterial Blood pH 7.35 (7.35-7.45) Arterial Blood pCO2 at Patient Temp 51 mmHg (35-46) Arterial Blood pO2 at Patient Temp 105 mmHg (75-108) Arterial Blood HCO3 27 mmol/L (21-28) Arterial Blood Base Excess 1 mmol/L (-3-3) FiO2 40 Micro Micro Microbiology 02/15/17 Blood Culture - Preliminary, Resulted NO GROWTH AFTER 1 DAY 02/12/17 Urine Culture - Final, Complete 02/12/17 Urine Culture Result 1 (ELIZABETH) - Final, Complete Review of Systems Constitutional: yes: no symptom reported Physical Exam General Appearance: no apparent distress Skin: warm Respiratory: decreased breath sounds Heart: S1S2, RRR Abdomen: soft Genitourinary: bladder flat Extremities: pulses present, atrophy Neurology: other (unresponsive) Musculoskeletal: Other (costochondritis) Assessment Assessment IMP DARYA-ANURIA RESP FAILURE S/P CARDIAC ARREST SEPSIS ANOXIC ENCEPHALOPATHY PLAN HD TODAY UF TO DW PRESSORS NEEDED ANTIBIOTICS CONT TF ADRIAN BRIGGS MD Feb 17, 2017 10:14
--- NOTE | 2017-02-17 12:00 | RAD ---
Procedure: Temporary hemodialysis catheter placement 02/15/2017 Clinical Indication: Acute renal failure Sterility: All elements of maximal sterile barrier technique including the use of a cap, mask, sterile gown, sterile gloves, large sterile sheet, appropriate hand hygiene, and 2% chlorhexidine for cutaneous antisepsis (or acceptable alternative antiseptic per current guidelines) were followed for this procedure. The procedure was explained in its entirety to the patient or the patients designated veterans contact representative by a member of the treatment team, including a discussion of the risks, benefits and commonly accepted alternatives to the procedure, as well as the expected consequences of no therapy whatsoever. Discussion of the risks included, but was not limited to, those that are most frequent and those that are rare but possibly severe or life-threatening, as well as the possibility of unforeseen complications. The patient was prepped and draped in the usual sterile fashion. Ultrasound interrogation of the left neck revealed patency and compressibility of the left internal jugular vein. A 21-gauge micropuncture needle was used to gain access to this vein after 1% Lidocaine was used to achieve local anesthesia. A hardcopy ultrasound image was recorded. The needle was exchanged over a wire for serial dilators followed by a 24 cm temporary hemodialysis catheter. The catheter flow rates were assessed manually and found to be excellent. The catheter was then flushed, packed with Heparin, capped, and sutured to the skin. No immediate complications were identified Impression: Successful ultrasound-guided placement of a left internal jugular temporary dialysis catheter
[2017-02-17 12:15] LABS: HEP B SURFACE ABDY Non Reactive (.)
[2017-02-17] MEDS: ASPIRIN 300 MG SUPP.RECT PR SCH ×2 (12:22→15:11)
[2017-02-17] MEDS: FAMOTIDINE 20 MG/2 ML VIAL IVP SCH (12:22)
[2017-02-17] MEDS: methylPREDNISolone SOD SUCC PF 125 MG/2 ML VIAL. IV SCH ×3 (12:22→20:59)
--- NOTE | 2017-02-17 13:33 | PDOC2 ---
PALLIATIVE CARE Palliative Care Note Palliative Care Patient remains of Vent 40%--Overbreathing vent setting. Pupils equal round and reactive to light. No response to painful stimuli Attempted to reach guardian; Drew Hernandez ([phone]) Message to return call. Spoke with Nava at [facility]; Nava ([phone]) shared that patient has been a resident since September 2006. Per Nava and staff patient has not visitors. Has occasional behavior issues. Smokes often and occasionally stops eating. Per staff patient has never talked about what she would want of she became seriously ill. Shannon: Does not attend any services and talk about her shannon. Patient has no family or visitors per Senior Care Staff Spoke with Dr. Agee and Dr. Henderson. Will discuss with guardian regarding plan of care when call returned. ARABELLA COLEMAN Feb 17, 2017 13:33
--- NOTE | 2017-02-17 14:49 | PDOC ---
Objective: Objective: D/w Pat/PC, reviewed note - legal guardian cannot make end of life decisions, remains full code. Per RN - no stool since admission although did pass some clear material, tube feeds going well. Reviewed other notes - Vital Signs: Vital Signs Date Time Temp Pulse Resp B/P (MAP) Pulse Ox O2 Delivery O2 Flow Rate FiO2 02/17/17 13:00 86 31 115/59 (77) 100 Ventilator 02/17/17 12:00 98.7 98.7 Labs: Laboratory Tests Test 02/16/17 20:35 02/17/17 00:15 02/17/17 06:10 02/17/17 09:15 Sodium Level 126 mmol/L 131 mmol/L 128 mmol/L Hepatitis B Surface Antigen Negative Hepatitis B Surface Antibody Non reactive Potassium Level 4.3 mmol/L Chloride Level 93 mmol/L Carbon Dioxide Level 21 mmol/L Anion Gap 14 Blood Urea Nitrogen 66 mg/dL Creatinine 4.4 mg/dL Estimated GFR (Cockcroft-Gault) 12.6 Glucose Level 129 mg/dL Calcium Level 8.0 mg/dL Phosphorus Level 4.4 mg/dL Magnesium Level 2.1 mg/dL Albumin 2.4 g/dL O2 Saturation 97 % Arterial Blood pH 7.35 Arterial Blood pCO2 at Patient Temp 51 mmHg Arterial Blood pO2 at Patient Temp 105 mmHg Arterial Blood HCO3 27 mmol/L Arterial Blood Base Excess 1 mmol/L FiO2 40 PE: GEN: intubated LUNGS: vent HEART: RRR ABD: less soft than last week, BS+ but quiet NEURO/PSYCH: non-responsive A/P: Anoxic encephalopathy, resp failure, post cardiac arrest, renal failure, sepsis Elevated LFTs/shock liver - improved Coffee-ground emesis - resolved -- Difficult situation, guardian not able to make end of life decisions. Poor prognosis. Other per Dr. Glynn. JO ANN LARSON Feb 17, 2017 14:49
[2017-02-17] MEDS ORDERED: POLYETHYLENE GLYCOL 3350 17 GM PACKET. FT PRN (15:00)
[2017-02-17] MEDS ORDERED: BISACODYL 10 MG SUPP.RECT. PR PRN (15:00)
[2017-02-17] MEDS: HEPARIN PF for SUB-Q USE 5,000 UNIT/0.5 ML VIAL. SQ SCH ×2 (15:12→21:56)
[2017-02-17] MEDS: IV DEXTROSE 5 %-0.2 % NACL 1,000 ML IV SCH (15:15)
--- NOTE | 2017-02-17 15:56 | PDOC ---
PROGRESS NOTES Assessment Assessment IMPRESSION: Anoxic encephalopathy. Metabolic encephalopathy. Respiratory failure. S/p cardiac arrest received hypothermia, CPR 20 minutes. Renal failure. HTN HLD COPD HCV EEG on 02/17/17: Abnormal. PLEDs. Sharp waves. Slowing. RECOMMENDATIONS/PLAN: Continue life support in ICU. Treat medical and cardiac diseases. Start Keppra 500 mg IV q12 h. Past Medical History Cardiovascular: HTN, Hyperlipidemia Pulmonary: COPD GI: Constipation, Other (anorexia) Hepatobiliary: Hep A/B/C (C) Psych: Anxiety, Addictions, Depression, Schizophrenia Musculoskeletal: Other (costochondritis) Past Surgical History Past Surgical History: Cataract Removal Family History Family History: No pertinent hx Social History Social History [facility] resident, has a court appointed power of manager customer but does not have healthcare decision-making velazquez. ALLERGY: Reviewed. MEDICATIONS: Refer to MAR REVIEW OF SYSTEMS: Constitutional: No malnutrition, cachexia. Head: No recent traumatic brain or head injury. Skin: No edema, or rash. Ear: No infection. Eyes: No vision loss, or diplopia. Nose: No bleeding or purulent discharges. Hearing: No hearing decrease. Neck: No injury. Breast: No history of cancer, masses, or discharges. Cardiac: HTN, HLD Pulmonary: CPOD. GI: No GI Ulcer, GI bleeding Urinary/genital: UTI. Endocrine: [id number]. Skeletomuscular: No muscular atrophy. Neurological: see HP. Psychiatric: Denies drug use/abuse. Otherwise, not [id number] review of systems. PHYSICAL EXAMINATION: General appearance in subacute distress. HEENT: Normocephalic and nontraumatic. Eyes, nose, ears, and throat are unremarkable. Neck is supple. No lymphadenopathy. No bruits are heard over the carotid artery. Cardiovascular: S1, S2, seemed regular rate and rhythm. Pulmonary: On vent. Abdomen: Bowel sounds are positive. Extremities: No rash, lesions. NEUROLOGICAL EXAMINATION: On vent. Unresponsive. Not oriented to time, place and person. PERRL. EOMI not elicited. CN: no acute focal findings. Muscle tone: decreased. Muscle strength: no movements observed. DTR: 1 Plantar reflex: No response bilaterally Gait: not examined in bed. Sensory exam: No response to stimuli. Not able to access cerebellar signs elicited. Not able to perform F-T-N test. Objective Objective Vital Signs Date Time Temp Pulse Resp B/P (MAP) Pulse Ox O2 Delivery O2 Flow Rate FiO2 02/17/17 15:00 91 30 128/72 (90) 100 Ventilator 02/17/17 12:00 98.7 98.7 Intake and Output 02/18/17 07:00 Intake Total 55 ml Output Total 10 ml Balance 45 ml Intake IV Total 50 ml Tube Feeding 5 ml Output Urine Total 10 ml Gastric Drainage Total 0 ml Vitals Signs Vitals VS - Last 72 Hours, by Label Date Time Temp Pulse Resp B/P (MAP) Pulse Ox O2 Delivery O2 Flow Rate FiO2 02/17/17 15:00 91 30 128/72 (90) 100 Ventilator 02/17/17 14:00 83 30 106/57 (73) 100 Ventilator 02/17/17 13:00 86 31 115/59 (77) 100 Ventilator 02/17/17 12:47 100 Ventilator 02/17/17 12:00 Mechanical Ventilator 02/17/17 12:00 98.7 98 30 109/56 (73) 100 Ventilator 98.7 02/17/17 11:10 100 Ventilator 02/17/17 11:00 100 30 117/62 (80) 100 Ventilator 02/17/17 10:00 97 31 111/62 (78) 100 Ventilator 02/17/17 09:15 100 Ventilator 02/17/17 09:00 92 31 139/74 (95) 100 Ventilator 02/17/17 08:00 Mechanical Ventilator 02/17/17 08:00 99.2 71 32 124/73 (90) 100 Ventilator 99.2 02/17/17 07:00 82 30 140/76 (97) 100 Ventilator 02/17/17 06:00 92 30 136/75 (95) 100 Ventilator 02/17/17 05:00 90 30 137/77 (97) 100 Ventilator 02/17/17 04:23 100 Ventilator 02/17/17 04:00 99.2 92 30 127/74 (91) 100 Ventilator 99.2 02/17/17 04:00 Mechanical Ventilator 02/17/17 03:00 90 30 128/68 (88) 100 Ventilator 02/17/17 02:20 100 Ventilator 02/17/17 02:00 91 30 134/72 (92) 100 Ventilator 02/17/17 01:00 89 30 125/72 (89) 100 Ventilator 02/17/17 00:00 99.0 87 30 112/61 (78) 100 Ventilator 99.0 02/17/17 00:00 Mechanical Ventilator 02/16/17 23:45 100 Ventilator 02/16/17 23:00 89 30 118/66 (83) 100 Ventilator 02/16/17 22:00 89 30 127/69 (88) 100 Ventilator 02/16/17 21:14 100 Ventilator 02/16/17 21:00 90 30 118/77 (91) 100 Ventilator 02/16/17 20:00 98.8 87 30 112/61 (78) 100 Ventilator 98.8 02/16/17 20:00 Mechanical Ventilator 02/16/17 19:00 86 29 101/62 (75) 100 Ventilator 02/16/17 18:29 100 Ventilator 02/16/17 16:32 100 Ventilator 02/16/17 13:15 100 Ventilator 02/16/17 12:12 100 Ventilator 02/16/17 12:00 Mechanical Ventilator 02/16/17 12:00 98.4 88 30 91/65 (74) 100 Ventilator 98.4 02/16/17 11:00 90 30 104/54 (71) 100 Ventilator 02/16/17 10:06 100 Ventilator 02/16/17 10:00 98 30 112/73 (86) 100 Ventilator 02/16/17 09:00 102 30 116/65 (82) 100 Ventilator 02/16/17 08:29 100 Ventilator 02/16/17 08:00 98.7 107 26 104/61 (75) 99 Ventilator 98.7 02/16/17 08:00 Mechanical Ventilator 02/16/17 07:00 98.7 102 26 85/56 (66) 100 Ventilator 98.7 Laboratory Laboratory Laboratory Tests Test 02/16/17 20:35 02/17/17 00:15 02/17/17 06:10 02/17/17 09:15 Sodium Level 126 mmol/L (136-145) 131 mmol/L (136-145) 128 mmol/L (136-145) Hepatitis B Surface Antigen Negative (Negative) Hepatitis B Surface Antibody Non reactive (.) Potassium Level 4.3 mmol/L (3.5-5.1) Chloride Level 93 mmol/L (98-107) Carbon Dioxide Level 21 mmol/L (21-32) Anion Gap 14 (6-14) Blood Urea Nitrogen 66 mg/dL (7-20) Creatinine 4.4 mg/dL (0.6-1.0) Estimated GFR (Cockcroft-Gault) 12.6 Glucose Level 129 mg/dL (70-99) Calcium Level 8.0 mg/dL (8.5-10.1) Phosphorus Level 4.4 mg/dL (2.6-4.7) Magnesium Level 2.1 mg/dL (1.8-2.4) Albumin 2.4 g/dL (3.4-5.0) O2 Saturation 97 % (92-99) Arterial Blood pH 7.35 (7.35-7.45) Arterial Blood pCO2 at Patient Temp 51 mmHg (35-46) Arterial Blood pO2 at Patient Temp 105 mmHg (75-108) Arterial Blood HCO3 27 mmol/L (21-28) Arterial Blood Base Excess 1 mmol/L (-3-3) FiO2 40 Microbiology 02/15/17 Blood Culture - Preliminary, Resulted NO GROWTH AFTER 2 DAYS 02/12/17 Urine Culture - Final, Complete 02/12/17 Urine Culture Result 1 (ELIZABETH) - Final, Complete Medication Medications Current Medications Albumin Human 200 ml @ 200 mls/hr 1X PRN PRN IV Hypotension; Start 02/17/17 at 08:30; Stop 02/17/17 at 16:00 Bisacodyl (Dulcolax Supp) 10 mg PRN DAILY PRN [place] CONSTIPATION; Start 02/17/17 at 15:00 Daptomycin 340 mg/ Sodium Chloride 50 ml @ 100 mls/hr QODAY IV Last administered on 02/17/17t 12:22; Start 02/17/17 at 09:00 Heparin Sodium (Porcine) (Heparin Sq) 5,000 unit Q8HRS SQ Last administered on 02/17/17t 15:12; Start 02/17/17 at 14:00 Info (PHARMACY MONITORING -- do not chart) 1 each PRN DAILY PRN MC SEE COMMENTS ; Start 02/17/17 at 08:30; Status UNV Info (PHARMACY MONITORING -- do not chart) 1 each PRN DAILY PRN MC SEE COMMENTS ; Start 02/17/17 at 08:30; Status UNV Polyethylene Glycol (miraLAX PACKET) 17 gm PRN DAILY PRN [place] CONSTIPATION; Start 02/17/17 at 15:00 Sodium Chloride 1,000 ml @ 400 mls/hr Q2H30M PRN IV PATENCY; Start 02/17/17 at 08:30; Stop 02/17/17 at 16:00 Sodium Chloride 1,000 ml @ 1,000 mls/hr Q1H PRN IV hypotension; Start 02/17/17 at 08:30; Stop 02/17/17 at 16:00 Comment Review of Relevant I have reviewed the following items reji (where applicable) has been applied. YASMINE BERNAL MD Feb 17, 2017 15:56
--- NOTE | 2017-02-17 16:30 | EEG ---
DATE OF SERVICE: 02/17/2017 DATE OF SERVICE: 02/17/2017 EEG NUMBER: [id number] OBJECTIVE: This is a 56-year-old female patient with history of status post cardiac arrest. EEG was requested to evaluate cerebral activity. METHODS: Twenty electrodes were applied according to the international 10-20 electrode placement system. EKG monitoring, hyperventilation, intermittent photic stimulation. Monopolar and bipolar montages are routinely utilized. The record was obtained on a digital system with video monitoring. FINDINGS: 1. Background: The patient was recorded in the unresponsive state. No physiological awake, drowsy, and sleep states were recorded. The overall background amplitude is variable. No posterior dominant rhythm is observed. The overall background rhythm is disorganized with slowing in theta and delta frequencies. 2. Abnormalities: PLEDs are seen throughout the entire recording. Slowing in theta and delta frequencies from time to time. Sharp waves also noted. 3. Activation: Hyperventilation was not performed because the patient was in unresponsive state. Intermittent photic stimulation was performed but was no photic driving. IMPRESSION: This EEG is a remarkably abnormal study for the unresponsive state only. No physiological awake, drowsy and sleep states noted No posterior dominant rhythm is observed. The overall background rhythm is disorganized and it is with slowing in the theta and delta frequencies. Sharp waves also noted. PLEDs throughout the entire recording. This pattern of EEG is suggestive of cerebral dysfunction with increased risk of seizure. YASMINE BERNAL MD DR: JIM/kelley JOB#: [id number] / [id number] [place]
[2017-02-18] VITALS (24 sets, daily range): BP systolic 123–159; BP diastolic 67–91
[2017-02-18] MEDS: PIPERACILLIN/TAZOBACTAM 2.25 GM in IV NORMAL SALINE 50ML 50 ML IV SCH (05:55)
[2017-02-18] MEDS: HEPARIN PF for SUB-Q USE 5,000 UNIT/0.5 ML VIAL. SQ SCH ×3 (05:59→21:50)
[2017-02-18 06:28] LABS: INR 1.5 (0.8-1.1); PROTHROMBIN TIME PATIENT 16.9 SEC (11.7-14.0)
[2017-02-18 06:57] LABS: ALBUMIN 2.2 g/dL (3.4-5.0); CALCIUM 8.5 mg/dL (8.5-10.1); CREATININE 3.8 mg/dL (0.6-1.0); PHOSPHORUS 3.7 mg/dL (2.6-4.7); POTASSIUM 3.7 mmol/L (3.5-5.1)
--- NOTE | 2017-02-18 07:25 | PDOC ---
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 (02/13). clean [facility]. (02/15). Labs Lab Laboratory Tests Test 02/17/17 09:15 02/17/17 18:15 02/18/17 00:04 02/18/17 00:05 O2 Saturation 97 % (92-99) Arterial Blood pH 7.35 (7.35-7.45) Arterial Blood pCO2 at Patient Temp 51 mmHg (35-46) Arterial Blood pO2 at Patient Temp 105 mmHg (75-108) Arterial Blood HCO3 27 mmol/L (21-28) Arterial Blood Base Excess 1 mmol/L (-3-3) FiO2 40 Sodium Level 135 mmol/L (136-145) 134 mmol/L (136-145) Glucose (Fingerstick) 141 mg/dL (70-99) Test 02/18/17 05:53 02/18/17 06:01 Glucose (Fingerstick) 146 mg/dL (70-99) Prothrombin Time 16.9 SEC (11.7-14.0) Prothromb Time International Ratio 1.5 (0.8-1.1) Sodium Level 134 mmol/L (136-145) Potassium Level 3.7 mmol/L (3.5-5.1) Chloride Level 97 mmol/L (98-107) Carbon Dioxide Level 26 mmol/L (21-32) Anion Gap 11 (6-14) Blood Urea Nitrogen 59 mg/dL (7-20) Creatinine 3.8 mg/dL (0.6-1.0) Estimated GFR (Cockcroft-Gault) 15.0 Glucose Level 149 mg/dL (70-99) Calcium Level 8.5 mg/dL (8.5-10.1) Phosphorus Level 3.7 mg/dL (2.6-4.7) Magnesium Level 2.3 mg/dL (1.8-2.4) Albumin 2.2 g/dL (3.4-5.0) Objective Assessment MRSA sepsis/bacteremia, POA. 02/12. -TTE no evidence veg; Repeat BC from 02/15 neg Encephalopathy - nonresponsive S/P Cardiac arrest Respiratory failure COPD Leukocytosis - better, on steroids DARYA. Now on HD Schizophrenia MRSA nares positive Hyponatremia Plan Plan of Care D/c Dapto begin Vanc Discont Zosyn - aspiration should be treated now Needs DNR/DNI Needs palliative extubation as overall prognosis is poor Critically ill JAVIER HUGHES MD Feb 18, 2017 07:25
--- NOTE | 2017-02-18 07:58 | RAD ---
Portable chest, 02/18/2017: History: Respiratory failure Comparison is made to yesterday's study. The ET tube tip lies well above the ernst. Bilateral jugular venous catheters extend to the level of the atriocaval junction. An NG tube extends into the stomach. The heart size is normal. There are ongoing pulmonary infiltrates, right greater than left. This appears to represent a combination of airspace and interstitial opacities. No definite pleural fluid is seen. There is no evidence of pneumothorax. IMPRESSION: 1. Stable tube positions. 2. Ongoing pulmonary infiltrates, right greater left, again suggesting a combination of pneumonia and fibrosis.
[2017-02-18] MEDS: FAMOTIDINE 20 MG/2 ML VIAL IVP SCH (08:36)
[2017-02-18] MEDS: methylPREDNISolone SOD SUCC PF 125 MG/2 ML VIAL. IV SCH ×3 (08:42→20:52)
[2017-02-18 09:36] LABS: HCO3 ABG 23 mmol/L (21-28); PCO2 ABG 40 mmHg (35-46); PH ABG 7.38 (7.35-7.45); PO2 ABG 137 mmHg (75-108); SAT O2 ABG 98 % (92-99)
[2017-02-18 09:38] LABS: FIO2 ABG 40
--- NOTE | 2017-02-18 09:50 | PDOC ---
G I PROGRESS NOTE Subjective Unresponsive on ventilator/no sedation. Physical Exam Some pupillary responses. Lungs with few coarse sounds. RRR Abdomen soft, not distended. Review of Relevant I have reviewed the following items reji (where applicable) has been applied. Labs Laboratory Tests Test 02/16/17 20:35 02/17/17 00:15 02/17/17 06:10 02/17/17 09:15 Sodium Level 126 mmol/L (136-145) 131 mmol/L (136-145) 128 mmol/L (136-145) Hepatitis B Surface Antigen Negative (Negative) Hepatitis B Surface Antibody Non reactive (.) Potassium Level 4.3 mmol/L (3.5-5.1) Chloride Level 93 mmol/L (98-107) Carbon Dioxide Level 21 mmol/L (21-32) Anion Gap 14 (6-14) Blood Urea Nitrogen 66 mg/dL (7-20) Creatinine 4.4 mg/dL (0.6-1.0) Estimated GFR (Cockcroft-Gault) 12.6 Glucose Level 129 mg/dL (70-99) Calcium Level 8.0 mg/dL (8.5-10.1) Phosphorus Level 4.4 mg/dL (2.6-4.7) Magnesium Level 2.1 mg/dL (1.8-2.4) Albumin 2.4 g/dL (3.4-5.0) O2 Saturation 97 % (92-99) Arterial Blood pH 7.35 (7.35-7.45) Arterial Blood pCO2 at Patient Temp 51 mmHg (35-46) Arterial Blood pO2 at Patient Temp 105 mmHg (75-108) Arterial Blood HCO3 27 mmol/L (21-28) Arterial Blood Base Excess 1 mmol/L (-3-3) FiO2 40 Test 02/17/17 18:15 02/18/17 00:04 02/18/17 00:05 02/18/17 05:53 Sodium Level 135 mmol/L (136-145) 134 mmol/L (136-145) Glucose (Fingerstick) 141 mg/dL (70-99) 146 mg/dL (70-99) Test 02/18/17 06:01 02/18/17 09:15 Prothrombin Time 16.9 SEC (11.7-14.0) Prothromb Time International Ratio 1.5 (0.8-1.1) Sodium Level 134 mmol/L (136-145) Potassium Level 3.7 mmol/L (3.5-5.1) Chloride Level 97 mmol/L (98-107) Carbon Dioxide Level 26 mmol/L (21-32) Anion Gap 11 (6-14) Blood Urea Nitrogen 59 mg/dL (7-20) Creatinine 3.8 mg/dL (0.6-1.0) Estimated GFR (Cockcroft-Gault) 15.0 Glucose Level 149 mg/dL (70-99) Calcium Level 8.5 mg/dL (8.5-10.1) Phosphorus Level 3.7 mg/dL (2.6-4.7) Magnesium Level 2.3 mg/dL (1.8-2.4) Albumin 2.2 g/dL (3.4-5.0) O2 Saturation 98 % (92-99) Arterial Blood pH 7.38 (7.35-7.45) Arterial Blood pCO2 at Patient Temp 40 mmHg (35-46) Arterial Blood pO2 at Patient Temp 137 mmHg (75-108) Arterial Blood HCO3 23 mmol/L (21-28) Arterial Blood Base Excess -2 mmol/L (-3-3) FiO2 40 Laboratory Tests Test 02/17/17 18:15 02/18/17 00:04 02/18/17 00:05 02/18/17 05:53 Sodium Level 135 mmol/L (136-145) 134 mmol/L (136-145) Glucose (Fingerstick) 141 mg/dL (70-99) 146 mg/dL (70-99) Test 02/18/17 06:01 02/18/17 09:15 Prothrombin Time 16.9 SEC (11.7-14.0) Prothromb Time International Ratio 1.5 (0.8-1.1) Sodium Level 134 mmol/L (136-145) Potassium Level 3.7 mmol/L (3.5-5.1) Chloride Level 97 mmol/L (98-107) Carbon Dioxide Level 26 mmol/L (21-32) Anion Gap 11 (6-14) Blood Urea Nitrogen 59 mg/dL (7-20) Creatinine 3.8 mg/dL (0.6-1.0) Estimated GFR (Cockcroft-Gault) 15.0 Glucose Level 149 mg/dL (70-99) Calcium Level 8.5 mg/dL (8.5-10.1) Phosphorus Level 3.7 mg/dL (2.6-4.7) Magnesium Level 2.3 mg/dL (1.8-2.4) Albumin 2.2 g/dL (3.4-5.0) O2 Saturation 98 % (92-99) Arterial Blood pH 7.38 (7.35-7.45) Arterial Blood pCO2 at Patient Temp 40 mmHg (35-46) Arterial Blood pO2 at Patient Temp 137 mmHg (75-108) Arterial Blood HCO3 23 mmol/L (21-28) Arterial Blood Base Excess -2 mmol/L (-3-3) FiO2 40 Microbiology 02/15/17 Blood Culture - Preliminary, Resulted NO GROWTH AFTER 2 DAYS 02/12/17 Urine Culture - Final, Complete 02/12/17 Urine Culture Result 1 (ELIZABETH) - Final, Complete Medications Current Medications Calcium Chloride 1,000 mg 1X ONCE IV Last administered on 02/12/17 15:35; Start 02/12/17 at 16:00; Stop 02/12/17 at 16:35; Status DC Dextrose (Dextrose 50%-Water Syringe) 25 gm 1X ONCE IV Last administered on 15:33; Start 02/12/17 at 16:00; Stop 02/12/17 at 16:35; Status DC Sodium Bicarbonate 50 meq 1X ONCE IV Last administered on 02/12/17 15:35; Start 02/12/17 at 16:00; Stop 02/12/17 at 16:35; Status DC Furosemide (Lasix) 40 mg 1X ONCE IVP Last administered on 02/12/17 16:42; Start 02/12/17 at 16:30; Stop 02/12/17 at 16:35; Status DC Sodium Chloride 1,000 ml @ 1,000 mls/hr Q1H IV Last administered on 02/12/17 15:50; Start 02/12/17 at 16:57; Stop 02/13/17 at 07:23; Status DC Fentanyl Citrate (Fentanyl 2ml Vial) 25 mcg PRN Q30MIN PRN IV SED; Start at 17:00 Lorazepam (Ativan) 1 mg PRN Q30MIN PRN IV SEDATION; Start 02/12/17 at 17:00 Fentanyl Citrate 30 ml @ 2.5 mls/hr CONT PRN PRN IV IVF Last administered on 03:27; Start 02/12/17 at 17:00 Propofol 100 ml @ 0 mls/hr CONT PRN IV SEE I/O RECORD; Start 02/12/17 at 17:00 Vecuronium [place] (Norcuron Bolus) DOSE AT 0.1 mg/kg PRN Q30MIN PRN IV SHIVERING Last administered on 02/12/17 19:46; Start 02/12/17 at 17:00; Stop 02/13 at 11:01; Status DC Meperidine HCl (Demerol) 12.5 mg PRN Q30MIN PRN IV SHIVERING; Start 02/12/17 at 17:00 Multi-Ingred Cream/Lotion/Oil/ Oint (Artificial Tears Eye Oint) 1 silvestre PRN Q6HRS PRN OU 0.5 INCH FOR DRY EYE; Start 02/12/17 at 17:00 Famotidine (Pepcid) 20 mg BID IVP Last administered on 02/14/17 10:47; Start at 09:00; Stop 02/14/17 at 16:23; Status DC Aspirin (Aspirin) 300 mg DAILY PA Last administered on 02/17/17 15:11; Start 02/13/17 at 09:00 Sodium Chloride (Normal Saline Flush) 3 ml QSHIFT PRN IV AFTER MEDS AND BLOOD DRAWS; Start 02/12/17 at 17:00 Acetaminophen (Tylenol) 650 mg Q6HRS NG Last administered on 02/13/17 05:51; Start 02/12/17 at 18:00; Stop 02/13/17 at 17:59; Status DC Acetaminophen (Acetaminophen Supp) 650 mg PRN Q6HRS PRN PA MILD PAIN / TEMP; Start 02/13/17 at 17:00 Acetaminophen (Tylenol) 650 mg PRN Q6HRS PRN NG MILD PAIN / TEMP; Start at 17:00 Info 1 ea DAILY PRN MC PER PROTOCOL; Start 02/14/17 at 17:00 Sodium Chloride 500 ml @ 500 mls/hr 1X ONCE IV Last administered on 02/12/17 16:30; Start 02/12/17 at 17:15; Stop 02/12/17 at 18:14; Status DC Sodium Chloride 500 ml @ 500 mls/hr 1X ONCE IV Last administered on 02/12/17 16:50; Start 02/12/17 at 17:15; Stop 02/12/17 at 18:14; Status DC Sodium Chloride 1,000 ml @ 100 mls/hr Q10H IV Last administered on 02/13/17 06 :36; Start 02/12/17 at 19:00; Stop 02/13/17 at 10:51; Status DC Famotidine (Pepcid) 20 mg 1X ONCE PO Last administered on 02/12/17 19:57; Start 02/12/17 at 17:30; Stop 02/12/17 at 17:34; Status DC Methylprednisolone Sodium Succinate (SOLU-Medrol 40MG VIAL) 100 mg TID IV Last administered on 02/14/17 11:01; Start 02/12/17 at 18:00; Stop 02/14/17 at 12:00; Status DC Sodium Chloride 1,000 ml @ 1,000 mls/hr 1X ONCE IV Last administered on 19:31; Start 02/12/17 at 18:15; Stop 02/12/17 at 19:14; Status DC Piperacillin Sod/ Tazobactam Sod (Zosyn Per Pharmacy) 1 each PRN DAILY PRN MC SEE COMMENTS; Start 02/12/17 at 19:15; Stop 02/18/17 at 07:22; Status DC Vancomycin HCl (Vanco Per Pharmacy) 1 each PRN DAILY PRN MC SEE COMMENTS Last administered on 02/13/17 16:50; Start 02/12/17 at 19:15; Stop 02/14/17 at 07:57; Status DC Piperacillin Sod/ Tazobactam Sod 3.375 gm/Sodium Chloride 50 ml @ 100 mls/hr Q6HRS IV Last administered on 02/15/17 05:58; Start 02/12/17 at 19:30; Stop 02/15 at 09:37; Status DC Vancomycin HCl 1 gm/Sodium Chloride 250 ml @ 250 mls/hr 1X ONCE IV Last administered on 02/12/17 20:00; Start 02/12/17 at 19:30; Stop 02/12/17 at 20:29; Status DC Sodium Bicarbonate 50 meq 1X ONCE IV Last administered on 02/12/17 19:59; Start 02/12/17 at 19:30; Stop 02/12/17 at 19:31; Status DC Norepinephrine Bitartrate 250 ml @ 0 mls/hr CONT PRN IV SEE I/O RECORD Last administered on 02/16/17 07:18; Start 02/12/17 at 19:30 Norepinephrine Bitartrate 250 ml @ As Directed STK-MED ONCE IV ; Start 02/12/17 at 19:25; Stop 02/12/17 at 19:26; Status DC Vancomycin HCl 750 mg/Sodium Chloride 250 ml @ 250 mls/hr Q24H IV Last administered on 02/13/17 20:34; Start 02/13/17 at 20:00; Stop 02/14/17 at 07:57; Status DC Vancomycin HCl 1 each 1X ONCE MC ; Start 02/14/17 at 19:30; Stop 02/14/17 at 19: 31; Status Cancel Sodium Chloride 1,000 ml @ 1,000 mls/hr 1X ONCE IV Last administered on 05:05; Start 02/13/17 at 04:45; Stop 02/13/17 at 05:44; Status DC Sodium Chloride 1,000 ml @ 1,000 mls/hr 1X ONCE IV Last administered on 05:35; Start 02/13/17 at 05:30; Stop 02/13/17 at 06:29; Status DC Magnesium Sulfate/ Dextrose 50 ml @ 25 mls/hr PRN DAILY PRN IV for Mag < 1.7 on am labs; Start 02/13/17 at 10:45 Dextrose/Sodium Chloride 1,000 ml @ 75 mls/hr [id number] IV Last administered on 02/15/17 01:52; Start 02/13/17 at 11:00; Stop 02/15/17 at 08:52; Status DC Vecuronium [place] (Norcuron Bolus) 5 mg PRN Q30MIN PRN IV SHIVERING; Start 02/13/17 at 11:15 Lidocaine/Sodium Bicarbonate (Buffered Lidocaine 1%) 3 ml 1X ONCE IJ Last administered on 02/13/17 11:40; Start 02/13/17 at 11:15; Stop 02/13/17 at 11:26; Status DC Heparin Sodium/ Sodium Chloride 60 unit 1X ONCE IV Last administered on 11:40; Start 02/13/17 at 11:15; Stop 02/13/17 at 11:26; Status DC Lidocaine/Sodium Bicarbonate (Buffered Lidocaine 1%) 20 ml STK-MED ONCE IJ ; Start 02/13/17 at 11:22; Stop 02/13/17 at 11:29; Status DC Heparin Sodium (Porcine) (Heparin Sodium) 2,075 unit 1X ONCE IV Last administered on 02/13/17 12:45; Start 02/13/17 at 11:45; Stop 02/13/17 at 11:56; Status DC Heparin Sodium/ Dextrose 500 ml @ 16.5 mls/hr CONT PRN IV SEE I/O RECORD Last administered on 02/13/17 12:47; Start 02/13/17 at 11:45; Stop 02/14/17 at 13:53; Status DC Heparin Sodium (Porcine) (Heparin Sodium) 1,550 unit PRN Q6HRS PRN IV FOR UFH LEVEL LESS THAN 0.2 Last administered on 02/13/17 20:22; Start 02/13/17 at 11:45 ; Stop 02/14/17 at 13:53; Status DC Heparin Sodium (Porcine) (Heparin Sodium) 800 unit PRN Q6HRS PRN IV FOR UFH LEVEL 0.2 - 0.29 Last administered on 02/14/17 02:34; Start 02/13/17 at 11:45; Stop 02/14/17 at 13:53; Status DC Warfarin Sodium (Coumadin Per Pharmacy) 1 each PRN DAILY PRN MC PER PROTOCOL; Start 02/13/17 at 11:45; Status Cancel Info (Anti-Coagulation Monitoring By Pharmacy) 1 each PRN DAILY PRN MC SEE COMMENTS; Start 02/13/17 at 13:00; Stop 02/14/17 at 16:28; Status DC Calcium Chloride 1,000 mg STK-MED ONCE IV ; Start 02/12/17 at 10:00; Stop at 16:27; Status DC Epinephrine HCl (EPINEPHrine SYRINGE) 1 mg STK-MED ONCE .ROUTE ; Start 02/12/17 at 10:00; Stop 02/13/17 at 16:27; Status DC Dextrose (Dextrose 50%-Water Syringe) 25 gm STK-MED ONCE IV ; Start 02/12/17 at 10:00; Stop 02/13/17 at 16:27; Status DC Sodium Bicarbonate 50 meq STK-MED ONCE .ROUTE ; Start 02/12/17 at 10:00; Stop 02/13/17 at 16:27; Status DC Methylprednisolone Sodium Succinate (SOLU-Medrol 125MG VIAL) 100 mg TID IV Last administered on 02/18/17 08:42; Start 02/14/17 at 18:00 Norepinephrine Bitartrate 250 ml @ 0 mls/hr CONT PRN IV SEE I/O RECORD; Start 02/14/17 at 15:30; Status Cancel Famotidine (Pepcid) 20 mg DAILY IVP Last administered on 02/18/17 08:36; Start 02/15/17 at 09:00 Amino Acids/ Glycerin/ Electrolytes 1,000 ml @ 80 mls/hr [id number] IV Last administered on 02/15/17 09:32; Start 02/15/17 at 08:45; Stop 02/15/17 at 15:14; Status DC Albumin Human 100 ml @ 100 mls/hr 1X ONCE IV Last administered on 02/15/17 09 :30; Start 02/15/17 at 08:45; Stop 02/15/17 at 09:44; Status DC Furosemide (Lasix) 40 mg 1X ONCE IVP ; Start 02/15/17 at 08:45; Stop 02/15/17 at 09:18; Status DC Piperacillin Sod/ Tazobactam Sod 2.25 gm/Sodium Chloride 50 ml @ 100 mls/hr Q6HRS IV Last administered on 02/16/17 05:52; Start 02/15/17 at 12:00; Stop 03/25 at 09:17; Status DC Daptomycin 340 mg/ Sodium Chloride 50 ml @ 100 mls/hr ONCE ONCE IV Last administered on 02/15/17 11:15; Start 02/15/17 at 11:15; Stop 02/15/17 at 11:44; Status DC Dextrose/Sodium Chloride 1,000 ml @ 40 mls/hr Q24H IV Last administered on 17:03; Start 02/15/17 at 15:15 Lidocaine/Sodium Bicarbonate (Buffered Lidocaine 1%) 3 ml 1X ONCE IJ Last administered on 02/15/17 16:00; Start 02/15/17 at 15:45; Stop 02/15/17 at 15:46; Status DC Heparin Sodium/ Sodium Chloride 6,000 unit 1X ONCE IV ; Start 02/15/17 at 15:45 ; Stop 02/15/17 at 15:46; Status DC Sodium Chloride 1,000 ml @ 1,000 mls/hr Q1H PRN IV hypotension; Start 02/16/17 at 06:38; Stop 02/16/17 at 12:37; Status DC Info (PHARMACY MONITORING -- do not chart) 1 each PRN DAILY PRN MC SEE COMMENTS ; Start 02/16/17 at 06:45 Info (PHARMACY MONITORING -- do not chart) 1 each PRN DAILY PRN MC SEE COMMENTS ; Start 02/16/17 at 06:45; Stop 02/16/17 at 09:19; Status DC Info (PHARMACY MONITORING -- do not chart) 1 each PRN DAILY PRN MC SEE COMMENTS ; Start 02/16/17 at 06:45; Stop 02/16/17 at 09:19; Status DC Albumin Human 100 ml @ 100 mls/hr 1X ONCE IV Last administered on 02/16/17 07:18; Start 02/16/17 at 07:00; Stop 02/16/17 at 07:59; Status DC Piperacillin Sod/ Tazobactam Sod 2.25 gm/Sodium Chloride 50 ml @ 100 mls/hr Q8HRS IV Last administered on 02/18/17 05:55; Start 02/16/17 at 14:00; Stop at 07:22; Status DC Daptomycin 340 mg/ Sodium Chloride 50 ml @ 100 mls/hr QODAY IV Last administered on 02/17/17 12:22; Start 02/17/17 at 09:00; Stop 02/18/17 at 07:22 ; Status DC Sodium Chloride 1,000 ml @ 1,000 mls/hr Q1H PRN IV hypotension; Start 02/17/17 at 08:30; Stop 02/17/17 at 16:00; Status DC Albumin Human 200 ml @ 200 mls/hr 1X PRN PRN IV Hypotension; Start 02/17/17 at 08:30; Stop 02/17/17 at 16:00; Status DC Sodium Chloride 1,000 ml @ 400 mls/hr Q2H30M PRN IV PATENCY; Start 02/17/17 at 08:30; Stop 02/17/17 at 16:00; Status DC Info (PHARMACY MONITORING -- do not chart) 1 each PRN DAILY PRN MC SEE COMMENTS ; Start 02/17/17 at 08:30; Status UNV Info (PHARMACY MONITORING -- do not chart) 1 each PRN DAILY PRN MC SEE COMMENTS ; Start 02/17/17 at 08:30; Status UNV Heparin Sodium (Porcine) (Heparin Sq) 5,000 unit Q8HRS SQ Last administered on 02/18/17 05:59; Start 02/17/17 at 14:00 Bisacodyl (Dulcolax Supp) 10 mg PRN DAILY PRN PA CONSTIPATION; Start 02/17/17 at 15:00 Polyethylene Glycol (miraLAX PACKET) 17 gm PRN DAILY PRN FT CONSTIPATION; Start 02/17/17 at 15:00 Levetiracetam 500 mg/Sodium Chloride 100 ml @ 400 mls/hr Q12HR IV Last administered on 02/18/17 08:50; Start 02/17/17 at 21:00 Vancomycin HCl (Vanco Per Pharmacy) 1 each PRN DAILY PRN MC SEE COMMENTS; Start 02/18/17 at 07:30 Active Scripts Active Reported Latuda (Lurasidone Hcl) 20 Mg Tablet 20 Mg PO AFTRNOON Remeron (Mirtazapine) 15 Mg Tablet 1 Tab PO QHS Oxybutynin Chloride Er (Oxybutynin Chloride) 10 Mg Tab.er.24 1 Tab PO DAILY Multivitamins (Multivitamin) 1 Each Tablet 1 Tab PO DAILY Latuda (Lurasidone Hcl) 20 Mg Tablet 10 Mg PO AFTRNOON Lorazepam 0.5 Mg Tablet 1 Tab PO QEVNG Duoneb 0.5-3(2.5) Mg/3 Ml (Albuterol/Ipratropium) 3 Ml Ampul.neb 3 Ml NEB BID Duoneb 0.5-3(2.5) Mg/3 Ml (Albuterol/Ipratropium) 3 Ml Ampul.neb 3 Ml NEB Q4H PRN Calcium Carbonate 500 Mg Tablet 1,000 Mg PO Q4HRS PRN Nicotine Gum (Nicotine Polacrilex) 4 Mg Gum 4 Mg BC Milk Of Magnesia (Magnesium Hydroxide) 400 Mg/5 Ml Oral.susp 400 Mg PO Q3DAYS PRN Milk Of Magnesia (Magnesium Hydroxide) 400 Mg/5 Ml Oral.susp 400 Mg PO Q3DAYS PRN Lorazepam 1 Mg Tablet 1 Tab PO Q12HR PRN Ibuprofen 400 Mg Tablet 200 Mg PO Q8HRS PRN Cough Drops (Eucalyptus Oil/Menthol) 7 Mg Lozenge 7 Mg MM Q4HRS PRN Tylenol (Acetaminophen) 325 Mg Tablet 650 Mg PO Q4HRS PRN Lovaza ([place]-3 Acid Ethyl Esters) 1 Gm Capsule 1 Cap PO QID Gabapentin 400 Mg Capsule 400 Mg PO QID Lorazepam 1 Mg Tablet 1 Tab PO BID Latuda (Lurasidone Hcl) 60 Mg Tablet 60 Mg PO BID Advair 100-50 Diskus (Fluticasone/Salmeterol) 1 Each Disk.w.dev 1 Puff IH BID Acetaminophen 325 Mg Capsule 650 Mg PO BID Vitamin D (Cholecalciferol (Vitamin D3)) 2,000 Unit Capsule 800 Unit PO DAILY Vitals/I & O Vital Sign - Last 24 Hours 02/17/17 02/17/17 02/17/17 02/17/17 10:00 11:00 11:10 12:00 Temp 98.7 98.7 Pulse 97 100 98 Resp 31 30 30 B/P (MAP) 111/62 (78) 117/62 (80) 109/56 (73) Pulse Ox 100 100 100 100 O2 Delivery Ventilator Ventilator Ventilator Ventilator 02/17/17 02/17/17 02/17/17 02/17/17 12:00 12:47 13:00 14:00 Pulse 86 83 Resp 31 30 B/P (MAP) 115/59 (77) 106/57 (73) Pulse Ox 100 100 100 O2 Delivery Mechanical Ventilator Ventilator Ventilator Ventilator 02/17/17 02/17/17 02/17/17 02/17/17 14:45 15:00 16:00 16:00 Temp 99.8 99.8 Pulse 91 84 Resp 30 30 B/P (MAP) 128/72 (90) 135/73 (93) Pulse Ox 100 100 100 O2 Delivery Ventilator Ventilator Ventilator Mechanical Ventilator 02/17/17 02/17/17 02/17/17 02/17/17 16:26 17:00 18:00 19:00 Temp 99.1 99.1 Pulse 85 75 66 Resp 30 30 30 B/P (MAP) 132/69 (90) 136/76 (96) 118/64 (82) Pulse Ox 100 100 100 100 O2 Delivery Ventilator Ventilator Ventilator Ventilator 02/17/17 02/17/17 02/17/17 02/17/17 19:31 20:00 20:00 21:00 Temp 99.2 99.2 Pulse 74 67 Resp 30 30 B/P (MAP) 134/77 (96) 137/73 (94) Pulse Ox 100 100 100 O2 Delivery Ventilator Ventilator Mechanical Ventilator Ventilator 02/17/17 02/17/17 02/17/17 02/17/17 22:00 23:00 23:05 23:59 Temp 98.7 98.7 Pulse 79 79 83 Resp 30 30 30 B/P (MAP) 133/68 (89) 124/70 (88) 140/79 (99) Pulse Ox 100 100 100 100 O2 Delivery Ventilator Ventilator Ventilator Ventilator 02/17/17 02/18/17 02/18/17 02/18/17 23:59 00:58 01:00 02:00 Pulse 76 78 Resp 30 30 B/P (MAP) 131/77 (95) 144/83 (103) Pulse Ox 100 100 100 O2 Delivery Mechanical Ventilator Ventilator Ventilator Ventilator 02/18/17 02/18/17 02/18/17 02/18/17 03:00 03:25 04:00 04:00 Temp 99.4 99.4 Pulse 65 80 Resp 30 30 B/P (MAP) 123/75 (91) 153/75 (101) Pulse Ox 100 100 100 O2 Delivery Ventilator Ventilator Ventilator Mechanical Ventilator 02/18/17 02/18/17 02/18/17 02/18/17 05:00 05:40 06:00 07:00 Pulse 85 81 80 Resp 30 30 30 B/P (MAP) 140/82 (101) 137/75 (95) 139/70 (93) Pulse Ox 100 100 100 100 O2 Delivery Ventilator Ventilator Ventilator Ventilator 02/18/17 02/18/17 02/18/17 02/18/17 08:00 08:00 08:50 09:00 Temp 98.9 98.9 Pulse 76 76 Resp 30 30 B/P (MAP) 158/87 (110) 156/91 (112) Pulse Ox 100 100 100 O2 Delivery Mechanical Ventilator Ventilator Ventilator Ventilator Intake and Output 02/18/17 02/18/17 02/19/17 15:00 23:00 07:00 Intake Total 0 ml Output Total 0 ml Balance 0 ml Problem List Problems Medical Problems: (1) Cardiac arrest Status: Acute (2) Elevated troponin Status: Acute (3) Hyperkalemia Status: Acute (4) Hypoglycemia Status: Acute (5) Hyponatremia Status: Acute Assessment Anoxic encephalopathy. Would seem nil chance of recovery. No further bleeding. Plan of Care: Continue current Tx, Mgmt Plan of Care Note Would seem most humane to extubate and AND. PADDY ZUÑIGA MD Feb 18, 2017 09:50
[2017-02-18 10:10] LABS: HEMATOCRIT 23.8 % (36.0-47.0); HEMOGLOBIN 8.1 g/dL (12.0-15.5); MEAN CORPUSCULAR HEMOGLOBIN 33 pg (25-35); MEAN CORPUSCULAR HGB CONC 34 g/dL (31-37); MEAN CORPUSCULAR VOLUME 97 fL (79-100); NEUT % 96 % (31-73); PLATELET COUNT 149 x10^3/uL (140-400); RED BLOOD COUNT 2.45 x10^6/uL (3.50-5.40); RED CELL DISTRIBUTION WIDTH 14.4 % (11.5-14.5); WHITE BLOOD COUNT 22.3 x10^3/uL (4.0-11.0)
[2017-02-18 10:11] LABS: BASO % 0 % (0-3); EOS % 0 % (0-3); LYMPH # 0.6 x10^3/uL (1.0-4.8); LYMPH % 3 % (24-48); MONO % 1 % (0-9)
--- NOTE | 2017-02-18 10:23 | PDOC ---
PULMONARY PROGRESS NOTES Subjective REMAINS INTUBATED OFF SEDATION NO RESPONSE Vitals Vital Signs Date Time Temp Pulse Resp B/P (MAP) Pulse Ox O2 Delivery O2 Flow Rate FiO2 02/18/17 10:00 80 30 145/67 (93) 100 Ventilator 02/18/17 08:00 98.9 98.9 Lungs: Clear Cardiovascular: S1, S2 Abdomen: Soft Extremities: No Edema, Other Skin: Warm, Dry Labs Laboratory Tests Test 02/16/17 20:35 02/17/17 00:15 02/17/17 06:10 02/17/17 09:15 Sodium Level 126 mmol/L (136-145) 131 mmol/L (136-145) 128 mmol/L (136-145) Hepatitis B Surface Antigen Negative (Negative) Hepatitis B Surface Antibody Non reactive (.) Potassium Level 4.3 mmol/L (3.5-5.1) Chloride Level 93 mmol/L (98-107) Carbon Dioxide Level 21 mmol/L (21-32) Anion Gap 14 (6-14) Blood Urea Nitrogen 66 mg/dL (7-20) Creatinine 4.4 mg/dL (0.6-1.0) Estimated GFR (Cockcroft-Gault) 12.6 Glucose Level 129 mg/dL (70-99) Calcium Level 8.0 mg/dL (8.5-10.1) Phosphorus Level 4.4 mg/dL (2.6-4.7) Magnesium Level 2.1 mg/dL (1.8-2.4) Albumin 2.4 g/dL (3.4-5.0) O2 Saturation 97 % (92-99) Arterial Blood pH 7.35 (7.35-7.45) Arterial Blood pCO2 at Patient Temp 51 mmHg (35-46) Arterial Blood pO2 at Patient Temp 105 mmHg (75-108) Arterial Blood HCO3 27 mmol/L (21-28) Arterial Blood Base Excess 1 mmol/L (-3-3) FiO2 40 Test 02/17/17 18:15 02/18/17 00:04 02/18/17 00:05 02/18/17 05:53 Sodium Level 135 mmol/L (136-145) 134 mmol/L (136-145) Glucose (Fingerstick) 141 mg/dL (70-99) 146 mg/dL (70-99) Test 02/18/17 06:01 02/18/17 09:15 White Blood Count 22.3 x10^3/uL (4.0-11.0) Red Blood Count 2.45 x10^6/uL (3.50-5.40) Hemoglobin 8.1 g/dL (12.0-15.5) Hematocrit 23.8 % (36.0-47.0) Mean Corpuscular Volume 97 fL (79-100) Mean Corpuscular Hemoglobin 33 pg (25-35) Mean Corpuscular Hemoglobin Concent 34 g/dL (31-37) Red Cell Distribution Width 14.4 % (11.5-14.5) Platelet Count 149 x10^3/uL (140-400) Neutrophils (%) (Auto) 96 % (31-73) Lymphocytes (%) (Auto) 3 % (24-48) Monocytes (%) (Auto) 1 % (0-9) Eosinophils (%) (Auto) 0 % (0-3) Basophils (%) (Auto) 0 % (0-3) Neutrophils # (Auto) 21.3 x10^3uL (1.8-7.7) Lymphocytes # (Auto) 0.6 x10^3/uL (1.0-4.8) Monocytes # (Auto) 0.3 x10^3/uL (0.0-1.1) Eosinophils # (Auto) 0.0 x10^3/uL (0.0-0.7) Basophils # (Auto) 0.0 x10^3/uL (0.0-0.2) Prothrombin Time 16.9 SEC (11.7-14.0) Prothromb Time International Ratio 1.5 (0.8-1.1) Sodium Level 134 mmol/L (136-145) Potassium Level 3.7 mmol/L (3.5-5.1) Chloride Level 97 mmol/L (98-107) Carbon Dioxide Level 26 mmol/L (21-32) Anion Gap 11 (6-14) Blood Urea Nitrogen 59 mg/dL (7-20) Creatinine 3.8 mg/dL (0.6-1.0) Estimated GFR (Cockcroft-Gault) 15.0 Glucose Level 149 mg/dL (70-99) Calcium Level 8.5 mg/dL (8.5-10.1) Phosphorus Level 3.7 mg/dL (2.6-4.7) Magnesium Level 2.3 mg/dL (1.8-2.4) Albumin 2.2 g/dL (3.4-5.0) O2 Saturation 98 % (92-99) Arterial Blood pH 7.38 (7.35-7.45) Arterial Blood pCO2 at Patient Temp 40 mmHg (35-46) Arterial Blood pO2 at Patient Temp 137 mmHg (75-108) Arterial Blood HCO3 23 mmol/L (21-28) Arterial Blood Base Excess -2 mmol/L (-3-3) FiO2 40 Laboratory Tests Test 02/17/17 18:15 02/18/17 00:04 02/18/17 00:05 02/18/17 05:53 Sodium Level 135 mmol/L (136-145) 134 mmol/L (136-145) Glucose (Fingerstick) 141 mg/dL (70-99) 146 mg/dL (70-99) Test 02/18/17 06:01 02/18/17 09:15 White Blood Count 22.3 x10^3/uL (4.0-11.0) Red Blood Count 2.45 x10^6/uL (3.50-5.40) Hemoglobin 8.1 g/dL (12.0-15.5) Hematocrit 23.8 % (36.0-47.0) Mean Corpuscular Volume 97 fL (79-100) Mean Corpuscular Hemoglobin 33 pg (25-35) Mean Corpuscular Hemoglobin Concent 34 g/dL (31-37) Red Cell Distribution Width 14.4 % (11.5-14.5) Platelet Count 149 x10^3/uL (140-400) Neutrophils (%) (Auto) 96 % (31-73) Lymphocytes (%) (Auto) 3 % (24-48) Monocytes (%) (Auto) 1 % (0-9) Eosinophils (%) (Auto) 0 % (0-3) Basophils (%) (Auto) 0 % (0-3) Neutrophils # (Auto) 21.3 x10^3uL (1.8-7.7) Lymphocytes # (Auto) 0.6 x10^3/uL (1.0-4.8) Monocytes # (Auto) 0.3 x10^3/uL (0.0-1.1) Eosinophils # (Auto) 0.0 x10^3/uL (0.0-0.7) Basophils # (Auto) 0.0 x10^3/uL (0.0-0.2) Prothrombin Time 16.9 SEC (11.7-14.0) Prothromb Time International Ratio 1.5 (0.8-1.1) Sodium Level 134 mmol/L (136-145) Potassium Level 3.7 mmol/L (3.5-5.1) Chloride Level 97 mmol/L (98-107) Carbon Dioxide Level 26 mmol/L (21-32) Anion Gap 11 (6-14) Blood Urea Nitrogen 59 mg/dL (7-20) Creatinine 3.8 mg/dL (0.6-1.0) Estimated GFR (Cockcroft-Gault) 15.0 Glucose Level 149 mg/dL (70-99) Calcium Level 8.5 mg/dL (8.5-10.1) Phosphorus Level 3.7 mg/dL (2.6-4.7) Magnesium Level 2.3 mg/dL (1.8-2.4) Albumin 2.2 g/dL (3.4-5.0) O2 Saturation 98 % (92-99) Arterial Blood pH 7.38 (7.35-7.45) Arterial Blood pCO2 at Patient Temp 40 mmHg (35-46) Arterial Blood pO2 at Patient Temp 137 mmHg (75-108) Arterial Blood HCO3 23 mmol/L (21-28) Arterial Blood Base Excess -2 mmol/L (-3-3) FiO2 40 Medications Active Scripts Medications Dose Route/Sig Max Daily Dose Days Date Category Latuda (Lurasidone Hcl) 20 Mg Tablet 20 Mg PO AFTRNOON 02/12/17 Reported Remeron (Mirtazapine) 15 Mg Tablet 1 Tab PO QHS 02/12/17 Reported Oxybutynin Chloride Er (Oxybutynin Chloride) 10 Mg Tab.er.24 1 Tab PO DAILY 02/12/17 Reported Multivitamins (Multivitamin) 1 Each Tablet 1 Tab PO DAILY 02/12/17 Reported Latuda (Lurasidone Hcl) 20 Mg Tablet 10 Mg PO AFTRNOON 02/12/17 Reported Lorazepam 0.5 Mg Tablet 1 Tab PO QEVNG 02/12/17 Reported Duoneb 0.5-3(2.5) Mg/3 Ml (Albuterol/Ipratropium) 3 Ml Ampul.neb 3 Ml NEB BID 02/12/17 Reported Duoneb 0.5-3(2.5) Mg/3 Ml (Albuterol/Ipratropium) 3 Ml Ampul.neb 3 Ml NEB Q4H PRN 02/12/17 Reported Calcium Carbonate 500 Mg Tablet 1,000 Mg PO Q4HRS PRN 02/12/17 Reported Nicotine Gum (Nicotine Polacrilex) 4 Mg Gum 4 Mg BC 02/12/17 Reported Milk Of Magnesia (Magnesium Hydroxide) 400 Mg/5 Ml Oral.susp 400 Mg PO Q3DAYS PRN 02/12/17 Reported Milk Of Magnesia (Magnesium Hydroxide) 400 Mg/5 Ml Oral.susp 400 Mg PO Q3DAYS PRN 02/12/17 Reported Lorazepam 1 Mg Tablet 1 Tab PO Q12HR PRN 02/12/17 Reported Ibuprofen 400 Mg Tablet 200 Mg PO Q8HRS PRN 02/12/17 Reported Cough Drops (Eucalyptus Oil/Menthol) 7 Mg Lozenge 7 Mg MM Q4HRS PRN 02/12/17 Reported Tylenol (Acetaminophen) 325 Mg Tablet 650 Mg PO Q4HRS PRN 02/12/17 Reported Lovaza ([place]-3 Acid Ethyl Esters) 1 Gm Capsule 1 Cap PO QID 02/12/17 Reported Gabapentin 400 Mg Capsule 400 Mg PO QID 02/12/17 Reported Lorazepam 1 Mg Tablet 1 Tab PO BID 02/12/17 Reported Latuda (Lurasidone Hcl) 60 Mg Tablet 60 Mg PO BID 02/12/17 Reported Advair 100-50 Diskus (Fluticasone/Salmeterol) 1 Each Disk.w.dev 1 Puff IH BID 02/12/17 Reported Acetaminophen 325 Mg Capsule 650 Mg PO BID 02/12/17 Reported Vitamin D (Cholecalciferol (Vitamin D3)) 2,000 Unit Capsule 800 Unit PO DAILY 02/12/17 Reported Comments REVIEWED NO CHANGE Impression . 1. Acute respiratory failure, sec to out of hospital arrest 2. Acute toxic/metabolic encephalopathy 3. Status post cardiac arrest. She had asystole. Possible anoxic brain injury 4. Abnormal echocardiogram with ejection fraction of 35%. 5. Hyponatremia 6. Abnormal LFTs secondary to hypoperfusion. 7. Acute renal failure. 8. Shock, combination of cardiogenic,septic/ OFF PRESSOR Plan . D/W PALLIATIVE CARE NURSE CONTINUE SUPPORT 1. Continue with present assist control mode pt not ready for wean, will await neuro improvement 2. Antibx per ID 3. Latic acidosis improved 4. HD 5. DVT prophylaxis. still has high INR 6. Stress ulcer prophylaxis with Pepcid. 7. off vasopressor. 8. venous Doppler of lower extremities neg for DVT 9. Would favor no further resuscitation efforts if code again LORENZO HAYNES MD Feb 18, 2017 10:23
[2017-02-18 11:05] LABS: NUCLEATED RBC 4
[2017-02-18 11:13] LABS: PLT ESTIMATE ADEQUATE (ADEQUATE)
--- NOTE | 2017-02-18 11:13 | PDOC ---
Renal-Progress Notes Subjective Notes Notes NONE History of Present Illness Hx of present illness NO CHANGE Vitals Vitals Vital Signs Date Time Temp Pulse Resp B/P (MAP) Pulse Ox O2 Delivery O2 Flow Rate FiO2 02/18/17 11:00 74 30 146/76 (99) 100 Ventilator 02/18/17 08:00 98.9 98.9 Weight Weight [ ] I.O. Intake and Output Intake and Output 02/19/17 07:00 Intake Total 0 ml Output Total 0 ml Balance 0 ml Tube Feeding 0 ml Output Urine Total 0 ml Gastric Drainage Total 0 ml # Bowel Movements 1 Labs Labs Laboratory Tests Test 02/17/17 18:15 02/18/17 00:04 02/18/17 00:05 02/18/17 05:53 Sodium Level 135 mmol/L (136-145) 134 mmol/L (136-145) Glucose (Fingerstick) 141 mg/dL (70-99) 146 mg/dL (70-99) Test 02/18/17 06:01 02/18/17 09:15 White Blood Count 22.3 x10^3/uL (4.0-11.0) Red Blood Count 2.45 x10^6/uL (3.50-5.40) Hemoglobin 8.1 g/dL (12.0-15.5) Hematocrit 23.8 % (36.0-47.0) Mean Corpuscular Volume 97 fL (79-100) Mean Corpuscular Hemoglobin 33 pg (25-35) Mean Corpuscular Hemoglobin Concent 34 g/dL (31-37) Red Cell Distribution Width 14.4 % (11.5-14.5) Platelet Count 149 x10^3/uL (140-400) Neutrophils (%) (Auto) 96 % (31-73) Lymphocytes (%) (Auto) 3 % (24-48) Monocytes (%) (Auto) 1 % (0-9) Eosinophils (%) (Auto) 0 % (0-3) Basophils (%) (Auto) 0 % (0-3) Neutrophils # (Auto) 21.3 x10^3uL (1.8-7.7) Lymphocytes # (Auto) 0.6 x10^3/uL (1.0-4.8) Monocytes # (Auto) 0.3 x10^3/uL (0.0-1.1) Eosinophils # (Auto) 0.0 x10^3/uL (0.0-0.7) Basophils # (Auto) 0.0 x10^3/uL (0.0-0.2) Prothrombin Time 16.9 SEC (11.7-14.0) Prothromb Time International Ratio 1.5 (0.8-1.1) Sodium Level 134 mmol/L (136-145) Potassium Level 3.7 mmol/L (3.5-5.1) Chloride Level 97 mmol/L (98-107) Carbon Dioxide Level 26 mmol/L (21-32) Anion Gap 11 (6-14) Blood Urea Nitrogen 59 mg/dL (7-20) Creatinine 3.8 mg/dL (0.6-1.0) Estimated GFR (Cockcroft-Gault) 15.0 Glucose Level 149 mg/dL (70-99) Calcium Level 8.5 mg/dL (8.5-10.1) Phosphorus Level 3.7 mg/dL (2.6-4.7) Magnesium Level 2.3 mg/dL (1.8-2.4) Albumin 2.2 g/dL (3.4-5.0) O2 Saturation 98 % (92-99) Arterial Blood pH 7.38 (7.35-7.45) Arterial Blood pCO2 at Patient Temp 40 mmHg (35-46) Arterial Blood pO2 at Patient Temp 137 mmHg (75-108) Arterial Blood HCO3 23 mmol/L (21-28) Arterial Blood Base Excess -2 mmol/L (-3-3) FiO2 40 Micro Micro Microbiology 02/15/17 Blood Culture - Preliminary, Resulted NO GROWTH AFTER 2 DAYS 02/12/17 Urine Culture - Final, Complete 02/12/17 Urine Culture Result 1 (ELIZABETH) - Final, Complete Review of Systems Constitutional: yes: no symptom reported Physical Exam General Appearance: no apparent distress Skin: warm Respiratory: decreased breath sounds Heart: S1S2, RRR Abdomen: soft Genitourinary: bladder flat Extremities: pulses present, atrophy Neurology: other (unresponsive) Musculoskeletal: Other (costochondritis) Assessment Assessment IMP DARYA-ANURIA RESP FAILURE S/P CARDIAC ARREST SEPSIS ANOXIC ENCEPHALOPATHY PLAN HD TOMORROW PRESSORS NEEDED ANTIBIOTICS CONT TF SUPPORTIVE CARE TILL DECISION MADE ADRIAN BRIGGS MD Feb 18, 2017 11:13
[2017-02-18 11:14] LABS: POLYCHROMASIA SLIGHT; TOXIC GRANULATION SLIGHT
--- NOTE | 2017-02-18 11:23 | PDOC2 ---
PALLIATIVE CARE Palliative Care Note Palliative Care Patient remains on Vent. No sedation. No response to stimuli Spoke with Drew Hernandez-legal guardian. Drew has known patient for 20 years. Has never had any conversation about resuscitation. Patient has said that she would not want cremation when she dies, but would want to be buried were her parents and brother are buried Drew is able to verbalize her medical condition accurately--"steps have been taken to minimize damage and maximize her ability to recover." Verbalized his role according to State Statutes. Drew shared that patient does have a sister--Silvia Johnson; [address] [place] [address]. Silvia has not had any contact with her sister for 30 years and has no interest in any contact. This information comes from Drew's conversation with Silvia's . Drew will check with Silvia/her before providing phone contact. Drew states he would need documentation from Treating physician and one other physician or Treating physician and ethics committee to go before the courts regarding resuscitation and AND. Courts will want to talk to treating physician (testifying could be done per phone) Drew states he will be unavailable and out of town on Friday. EEG on 02/17/17: Abnormal. PLEDs. Sharp waves. Slowing. Plan; Ethics Consult. Above reviewed with Dr. Agee . ARABELLA COLEMAN Feb 18, 2017 11:23
--- NOTE | 2017-02-18 11:56 | PDOC ---
PROGRESS NOTES Chief Complaint Chief Complaint cardiac arrest, asystole, unknown down time, s/p hypothermia Anoxic encephalopathy, off sedation, no response Normal corrected calcium OLIGURIC RENAL FAILURE noW NEW HD [facility] resident HX schiz by documentation Sepsis with organ failure, needing pressor THrombocytopenia ANemia, normocytic Hyponatremia History of Present Illness History of Present Illness Seen in ICU, intubated,off LEVOPHED x 2 days Not sedated but not awake Withdraws only to pain New HD - 2- sessions already UO still ZERO OK to dc rodriguez per renal - [employer] asks CReat 3.3 PLAN: HD per renal PAlliative getting a hold of DPOA- we did type a note yesterday saying no meaningful chance of recovery, has been off sedation for days with no purposeful response or movements, in the background of unknown (possibly prolonged) downtime Supportive meds NO nephrotoxins ANoxic, Prognosis poor, non responsive Cont TF COnt dvt ppx with heparin SQ ( monitor thrombocytopenia) SO far full code Dw [employer] and pat Vitals Vitals Vital Signs Date Time Temp Pulse Resp B/P (MAP) Pulse Ox O2 Delivery O2 Flow Rate FiO2 02/18/17 11:00 74 30 146/76 (99) 100 Ventilator 02/18/17 08:00 98.9 98.9 Physical Exam General: Other (SEDATE ON VENT) Heart: Regular rate, Normal S1, Normal S2, No murmurs, Gallops Lungs: Clear Abdomen: Normal bowel sounds, Soft, No tenderness, No hepatosplenomegaly, No masses Extremities: No clubbing, No cyanosis, No edema, Normal pulses, No tenderness/ swelling Skin: No breakdown, No significant lesion Labs LABS Laboratory Tests Test 02/17/17 18:15 02/18/17 00:04 02/18/17 00:05 02/18/17 05:53 Sodium Level 135 mmol/L (136-145) 134 mmol/L (136-145) Glucose (Fingerstick) 141 mg/dL (70-99) 146 mg/dL (70-99) Test 02/18/17 06:01 02/18/17 09:15 White Blood Count 22.3 x10^3/uL (4.0-11.0) Red Blood Count 2.45 x10^6/uL (3.50-5.40) Hemoglobin 8.1 g/dL (12.0-15.5) Hematocrit 23.8 % (36.0-47.0) Mean Corpuscular Volume 97 fL (79-100) Mean Corpuscular Hemoglobin 33 pg (25-35) Mean Corpuscular Hemoglobin Concent 34 g/dL (31-37) Red Cell Distribution Width 14.4 % (11.5-14.5) Platelet Count 149 x10^3/uL (140-400) Neutrophils (%) (Auto) 96 % (31-73) Lymphocytes (%) (Auto) 3 % (24-48) Monocytes (%) (Auto) 1 % (0-9) Eosinophils (%) (Auto) 0 % (0-3) Basophils (%) (Auto) 0 % (0-3) Neutrophils # (Auto) 21.3 x10^3uL (1.8-7.7) Lymphocytes # (Auto) 0.6 x10^3/uL (1.0-4.8) Monocytes # (Auto) 0.3 x10^3/uL (0.0-1.1) Eosinophils # (Auto) 0.0 x10^3/uL (0.0-0.7) Basophils # (Auto) 0.0 x10^3/uL (0.0-0.2) Segmented Neutrophils % 60 % (35-66) Band Neutrophils % 30 % (0-9) Lymphocytes % 3 % (24-48) Monocytes % 1 % (0-10) Metamyelocytes % 2 % (0-0) Myelocytes % 1 % (0-0) Promyelocytes % 3 % (0-0) Nucleated Red Blood Cells 4 Toxic Granulation Slight Platelet Estimate Adequate (ADEQUATE) Polychromasia Slight Prothrombin Time 16.9 SEC (11.7-14.0) Prothromb Time International Ratio 1.5 (0.8-1.1) Sodium Level 134 mmol/L (136-145) Potassium Level 3.7 mmol/L (3.5-5.1) Chloride Level 97 mmol/L (98-107) Carbon Dioxide Level 26 mmol/L (21-32) Anion Gap 11 (6-14) Blood Urea Nitrogen 59 mg/dL (7-20) Creatinine 3.8 mg/dL (0.6-1.0) Estimated GFR (Cockcroft-Gault) 15.0 Glucose Level 149 mg/dL (70-99) Calcium Level 8.5 mg/dL (8.5-10.1) Phosphorus Level 3.7 mg/dL (2.6-4.7) Magnesium Level 2.3 mg/dL (1.8-2.4) Albumin 2.2 g/dL (3.4-5.0) O2 Saturation 98 % (92-99) Arterial Blood pH 7.38 (7.35-7.45) Arterial Blood pCO2 at Patient Temp 40 mmHg (35-46) Arterial Blood pO2 at Patient Temp 137 mmHg (75-108) Arterial Blood HCO3 23 mmol/L (21-28) Arterial Blood Base Excess -2 mmol/L (-3-3) FiO2 40 Review of Systems Review of Systems intubated, no response Assessment and Plan Assessmemt and Plan Problems Medical Problems: (1) Cardiac arrest Status: Acute (2) Elevated troponin Status: Acute (3) Hyperkalemia Status: Acute (4) Hypoglycemia Status: Acute (5) Hyponatremia Status: Acute Problems: Comment Review of Relevant I have reviewed the following items reji (where applicable) has been applied. Labs Laboratory Tests Test 02/16/17 20:35 02/17/17 00:15 02/17/17 06:10 02/17/17 09:15 Sodium Level 126 mmol/L (136-145) 131 mmol/L (136-145) 128 mmol/L (136-145) Cortisol PM Sample 62.2 ug/dL (2.3-11.9) Hepatitis B Surface Antigen Negative (Negative) Hepatitis B Surface Antibody Non reactive (.) Potassium Level 4.3 mmol/L (3.5-5.1) Chloride Level 93 mmol/L (98-107) Carbon Dioxide Level 21 mmol/L (21-32) Anion Gap 14 (6-14) Blood Urea Nitrogen 66 mg/dL (7-20) Creatinine 4.4 mg/dL (0.6-1.0) Estimated GFR (Cockcroft-Gault) 12.6 Glucose Level 129 mg/dL (70-99) Calcium Level 8.0 mg/dL (8.5-10.1) Phosphorus Level 4.4 mg/dL (2.6-4.7) Magnesium Level 2.1 mg/dL (1.8-2.4) Albumin 2.4 g/dL (3.4-5.0) O2 Saturation 97 % (92-99) Arterial Blood pH 7.35 (7.35-7.45) Arterial Blood pCO2 at Patient Temp 51 mmHg (35-46) Arterial Blood pO2 at Patient Temp 105 mmHg (75-108) Arterial Blood HCO3 27 mmol/L (21-28) Arterial Blood Base Excess 1 mmol/L (-3-3) FiO2 40 Test 02/17/17 18:15 02/18/17 00:04 02/18/17 00:05 02/18/17 05:53 Sodium Level 135 mmol/L (136-145) 134 mmol/L (136-145) Glucose (Fingerstick) 141 mg/dL (70-99) 146 mg/dL (70-99) Test 02/18/17 06:01 02/18/17 09:15 White Blood Count 22.3 x10^3/uL (4.0-11.0) Red Blood Count 2.45 x10^6/uL (3.50-5.40) Hemoglobin 8.1 g/dL (12.0-15.5) Hematocrit 23.8 % (36.0-47.0) Mean Corpuscular Volume 97 fL (79-100) Mean Corpuscular Hemoglobin 33 pg (25-35) Mean Corpuscular Hemoglobin Concent 34 g/dL (31-37) Red Cell Distribution Width 14.4 % (11.5-14.5) Platelet Count 149 x10^3/uL (140-400) Neutrophils (%) (Auto) 96 % (31-73) Lymphocytes (%) (Auto) 3 % (24-48) Monocytes (%) (Auto) 1 % (0-9) Eosinophils (%) (Auto) 0 % (0-3) Basophils (%) (Auto) 0 % (0-3) Neutrophils # (Auto) 21.3 x10^3uL (1.8-7.7) Lymphocytes # (Auto) 0.6 x10^3/uL (1.0-4.8) Monocytes # (Auto) 0.3 x10^3/uL (0.0-1.1) Eosinophils # (Auto) 0.0 x10^3/uL (0.0-0.7) Basophils # (Auto) 0.0 x10^3/uL (0.0-0.2) Segmented Neutrophils % 60 % (35-66) Band Neutrophils % 30 % (0-9) Lymphocytes % 3 % (24-48) Monocytes % 1 % (0-10) Metamyelocytes % 2 % (0-0) Myelocytes % 1 % (0-0) Promyelocytes % 3 % (0-0) Nucleated Red Blood Cells 4 Toxic Granulation Slight Platelet Estimate Adequate (ADEQUATE) Polychromasia Slight Prothrombin Time 16.9 SEC (11.7-14.0) Prothromb Time International Ratio 1.5 (0.8-1.1) Sodium Level 134 mmol/L (136-145) Potassium Level 3.7 mmol/L (3.5-5.1) Chloride Level 97 mmol/L (98-107) Carbon Dioxide Level 26 mmol/L (21-32) Anion Gap 11 (6-14) Blood Urea Nitrogen 59 mg/dL (7-20) Creatinine 3.8 mg/dL (0.6-1.0) Estimated GFR (Cockcroft-Gault) 15.0 Glucose Level 149 mg/dL (70-99) Calcium Level 8.5 mg/dL (8.5-10.1) Phosphorus Level 3.7 mg/dL (2.6-4.7) Magnesium Level 2.3 mg/dL (1.8-2.4) Albumin 2.2 g/dL (3.4-5.0) O2 Saturation 98 % (92-99) Arterial Blood pH 7.38 (7.35-7.45) Arterial Blood pCO2 at Patient Temp 40 mmHg (35-46) Arterial Blood pO2 at Patient Temp 137 mmHg (75-108) Arterial Blood HCO3 23 mmol/L (21-28) Arterial Blood Base Excess -2 mmol/L (-3-3) FiO2 40 Laboratory Tests Test 02/17/17 18:15 02/18/17 00:04 02/18/17 00:05 02/18/17 05:53 Sodium Level 135 mmol/L (136-145) 134 mmol/L (136-145) Glucose (Fingerstick) 141 mg/dL (70-99) 146 mg/dL (70-99) Test 02/18/17 06:01 02/18/17 09:15 White Blood Count 22.3 x10^3/uL (4.0-11.0) Red Blood Count 2.45 x10^6/uL (3.50-5.40) Hemoglobin 8.1 g/dL (12.0-15.5) Hematocrit 23.8 % (36.0-47.0) Mean Corpuscular Volume 97 fL (79-100) Mean Corpuscular Hemoglobin 33 pg (25-35) Mean Corpuscular Hemoglobin Concent 34 g/dL (31-37) Red Cell Distribution Width 14.4 % (11.5-14.5) Platelet Count 149 x10^3/uL (140-400) Neutrophils (%) (Auto) 96 % (31-73) Lymphocytes (%) (Auto) 3 % (24-48) Monocytes (%) (Auto) 1 % (0-9) Eosinophils (%) (Auto) 0 % (0-3) Basophils (%) (Auto) 0 % (0-3) Neutrophils # (Auto) 21.3 x10^3uL (1.8-7.7) Lymphocytes # (Auto) 0.6 x10^3/uL (1.0-4.8) Monocytes # (Auto) 0.3 x10^3/uL (0.0-1.1) Eosinophils # (Auto) 0.0 x10^3/uL (0.0-0.7) Basophils # (Auto) 0.0 x10^3/uL (0.0-0.2) Segmented Neutrophils % 60 % (35-66) Band Neutrophils % 30 % (0-9) Lymphocytes % 3 % (24-48) Monocytes % 1 % (0-10) Metamyelocytes % 2 % (0-0) Myelocytes % 1 % (0-0) Promyelocytes % 3 % (0-0) Nucleated Red Blood Cells 4 Toxic Granulation Slight Platelet Estimate Adequate (ADEQUATE) Polychromasia Slight Prothrombin Time 16.9 SEC (11.7-14.0) Prothromb Time International Ratio 1.5 (0.8-1.1) Sodium Level 134 mmol/L (136-145) Potassium Level 3.7 mmol/L (3.5-5.1) Chloride Level 97 mmol/L (98-107) Carbon Dioxide Level 26 mmol/L (21-32) Anion Gap 11 (6-14) Blood Urea Nitrogen 59 mg/dL (7-20) Creatinine 3.8 mg/dL (0.6-1.0) Estimated GFR (Cockcroft-Gault) 15.0 Glucose Level 149 mg/dL (70-99) Calcium Level 8.5 mg/dL (8.5-10.1) Phosphorus Level 3.7 mg/dL (2.6-4.7) Magnesium Level 2.3 mg/dL (1.8-2.4) Albumin 2.2 g/dL (3.4-5.0) O2 Saturation 98 % (92-99) Arterial Blood pH 7.38 (7.35-7.45) Arterial Blood pCO2 at Patient Temp 40 mmHg (35-46) Arterial Blood pO2 at Patient Temp 137 mmHg (75-108) Arterial Blood HCO3 23 mmol/L (21-28) Arterial Blood Base Excess -2 mmol/L (-3-3) FiO2 40 Microbiology 02/15/17 Blood Culture - Preliminary, Resulted NO GROWTH AFTER 3 DAYS 02/12/17 Urine Culture - Final, Complete 02/12/17 Urine Culture Result 1 (ELIZABETH) - Final, Complete Medications Current Medications Calcium Chloride 1,000 mg 1X ONCE IV Last administered on 02/12/17 15:35; Start 02/12/17 at 16:00; Stop 02/12/17 at 16:35; Status DC Dextrose (Dextrose 50%-Water Syringe) 25 gm 1X ONCE IV Last administered on 15:33; Start 02/12/17 at 16:00; Stop 02/12/17 at 16:35; Status DC Sodium Bicarbonate 50 meq 1X ONCE IV Last administered on 02/12/17 15:35; Start 02/12/17 at 16:00; Stop 02/12/17 at 16:35; Status DC Furosemide (Lasix) 40 mg 1X ONCE IVP Last administered on 02/12/17 16:42; Start 02/12/17 at 16:30; Stop 02/12/17 at 16:35; Status DC Sodium Chloride 1,000 ml @ 1,000 mls/hr Q1H IV Last administered on 02/12/17 15:50; Start 02/12/17 at 16:57; Stop 02/13/17 at 07:23; Status DC Fentanyl Citrate (Fentanyl 2ml Vial) 25 mcg PRN Q30MIN PRN IV SED; Start at 17:00 Lorazepam (Ativan) 1 mg PRN Q30MIN PRN IV SEDATION; Start 02/12/17 at 17:00 Fentanyl Citrate 30 ml @ 2.5 mls/hr CONT PRN PRN IV IVF Last administered on 03:27; Start 02/12/17 at 17:00 Propofol 100 ml @ 0 mls/hr CONT PRN IV SEE I/O RECORD; Start 02/12/17 at 17:00 Vecuronium [place] (Norcuron Bolus) DOSE AT 0.1 mg/kg PRN Q30MIN PRN IV SHIVERING Last administered on 02/12/17 19:46; Start 02/12/17 at 17:00; Stop 02/13 at 11:01; Status DC Meperidine HCl (Demerol) 12.5 mg PRN Q30MIN PRN IV SHIVERING; Start 02/12/17 at 17:00 Multi-Ingred Cream/Lotion/Oil/ Oint (Artificial Tears Eye Oint) 1 silvestre PRN Q6HRS PRN OU 0.5 INCH FOR DRY EYE; Start 02/12/17 at 17:00 Famotidine (Pepcid) 20 mg BID IVP Last administered on 02/14/17 10:47; Start at 09:00; Stop 02/14/17 at 16:23; Status DC Aspirin (Aspirin) 300 mg DAILY MS Last administered on 02/17/17 15:11; Start 02/13/17 at 09:00 Sodium Chloride (Normal Saline Flush) 3 ml QSHIFT PRN IV AFTER MEDS AND BLOOD DRAWS; Start 02/12/17 at 17:00 Acetaminophen (Tylenol) 650 mg Q6HRS NG Last administered on 02/13/17 05:51; Start 02/12/17 at 18:00; Stop 02/13/17 at 17:59; Status DC Acetaminophen (Acetaminophen Supp) 650 mg PRN Q6HRS PRN MS MILD PAIN / TEMP; Start 02/13/17 at 17:00 Acetaminophen (Tylenol) 650 mg PRN Q6HRS PRN NG MILD PAIN / TEMP; Start at 17:00 Info 1 ea DAILY PRN MC PER PROTOCOL; Start 02/14/17 at 17:00 Sodium Chloride 500 ml @ 500 mls/hr 1X ONCE IV Last administered on 02/12/17 16:30; Start 02/12/17 at 17:15; Stop 02/12/17 at 18:14; Status DC Sodium Chloride 500 ml @ 500 mls/hr 1X ONCE IV Last administered on 02/12/17 16:50; Start 02/12/17 at 17:15; Stop 02/12/17 at 18:14; Status DC Sodium Chloride 1,000 ml @ 100 mls/hr Q10H IV Last administered on 02/13/17 06 :36; Start 02/12/17 at 19:00; Stop 02/13/17 at 10:51; Status DC Famotidine (Pepcid) 20 mg 1X ONCE PO Last administered on 02/12/17 19:57; Start 02/12/17 at 17:30; Stop 02/12/17 at 17:34; Status DC Methylprednisolone Sodium Succinate (SOLU-Medrol 40MG VIAL) 100 mg TID IV Last administered on 02/14/17 11:01; Start 02/12/17 at 18:00; Stop 02/14/17 at 12:00; Status DC Sodium Chloride 1,000 ml @ 1,000 mls/hr 1X ONCE IV Last administered on 19:31; Start 02/12/17 at 18:15; Stop 02/12/17 at 19:14; Status DC Piperacillin Sod/ Tazobactam Sod (Zosyn Per Pharmacy) 1 each PRN DAILY PRN MC SEE COMMENTS; Start 02/12/17 at 19:15; Stop 02/18/17 at 07:22; Status DC Vancomycin HCl (Vanco Per Pharmacy) 1 each PRN DAILY PRN MC SEE COMMENTS Last administered on 02/13/17 16:50; Start 02/12/17 at 19:15; Stop 02/14/17 at 07:57; Status DC Piperacillin Sod/ Tazobactam Sod 3.375 gm/Sodium Chloride 50 ml @ 100 mls/hr Q6HRS IV Last administered on 02/15/17 05:58; Start 02/12/17 at 19:30; Stop 02/15 at 09:37; Status DC Vancomycin HCl 1 gm/Sodium Chloride 250 ml @ 250 mls/hr 1X ONCE IV Last administered on 02/12/17 20:00; Start 02/12/17 at 19:30; Stop 02/12/17 at 20:29; Status DC Sodium Bicarbonate 50 meq 1X ONCE IV Last administered on 02/12/17 19:59; Start 02/12/17 at 19:30; Stop 02/12/17 at 19:31; Status DC Norepinephrine Bitartrate 250 ml @ 0 mls/hr CONT PRN IV SEE I/O RECORD Last administered on 02/16/17 07:18; Start 02/12/17 at 19:30 Norepinephrine Bitartrate 250 ml @ As Directed STK-MED ONCE IV ; Start 02/12/17 at 19:25; Stop 02/12/17 at 19:26; Status DC Vancomycin HCl 750 mg/Sodium Chloride 250 ml @ 250 mls/hr Q24H IV Last administered on 02/13/17 20:34; Start 02/13/17 at 20:00; Stop 02/14/17 at 07:57; Status DC Vancomycin HCl 1 each 1X ONCE MC ; Start 02/14/17 at 19:30; Stop 02/14/17 at 19: 31; Status Cancel Sodium Chloride 1,000 ml @ 1,000 mls/hr 1X ONCE IV Last administered on 05:05; Start 02/13/17 at 04:45; Stop 02/13/17 at 05:44; Status DC Sodium Chloride 1,000 ml @ 1,000 mls/hr 1X ONCE IV Last administered on 05:35; Start 02/13/17 at 05:30; Stop 02/13/17 at 06:29; Status DC Magnesium Sulfate/ Dextrose 50 ml @ 25 mls/hr PRN DAILY PRN IV for Mag < 1.7 on am labs; Start 02/13/17 at 10:45 Dextrose/Sodium Chloride 1,000 ml @ 75 mls/hr [id number] IV Last administered on 02/15/17 01:52; Start 02/13/17 at 11:00; Stop 02/15/17 at 08:52; Status DC Vecuronium [place] (Norcuron Bolus) 5 mg PRN Q30MIN PRN IV SHIVERING; Start 02/13/17 at 11:15 Lidocaine/Sodium Bicarbonate (Buffered Lidocaine 1%) 3 ml 1X ONCE IJ Last administered on 02/13/17 11:40; Start 02/13/17 at 11:15; Stop 02/13/17 at 11:26; Status DC Heparin Sodium/ Sodium Chloride 60 unit 1X ONCE IV Last administered on 11:40; Start 02/13/17 at 11:15; Stop 02/13/17 at 11:26; Status DC Lidocaine/Sodium Bicarbonate (Buffered Lidocaine 1%) 20 ml STK-MED ONCE IJ ; Start 02/13/17 at 11:22; Stop 02/13/17 at 11:29; Status DC Heparin Sodium (Porcine) (Heparin Sodium) 2,075 unit 1X ONCE IV Last administered on 02/13/17 12:45; Start 02/13/17 at 11:45; Stop 02/13/17 at 11:56; Status DC Heparin Sodium/ Dextrose 500 ml @ 16.5 mls/hr CONT PRN IV SEE I/O RECORD Last administered on 02/13/17 12:47; Start 02/13/17 at 11:45; Stop 02/14/17 at 13:53; Status DC Heparin Sodium (Porcine) (Heparin Sodium) 1,550 unit PRN Q6HRS PRN IV FOR UFH LEVEL LESS THAN 0.2 Last administered on 02/13/17 20:22; Start 02/13/17 at 11:45 ; Stop 02/14/17 at 13:53; Status DC Heparin Sodium (Porcine) (Heparin Sodium) 800 unit PRN Q6HRS PRN IV FOR UFH LEVEL 0.2 - 0.29 Last administered on 02/14/17 02:34; Start 02/13/17 at 11:45; Stop 02/14/17 at 13:53; Status DC Warfarin Sodium (Coumadin Per Pharmacy) 1 each PRN DAILY PRN MC PER PROTOCOL; Start 02/13/17 at 11:45; Status Cancel Info (Anti-Coagulation Monitoring By Pharmacy) 1 each PRN DAILY PRN MC SEE COMMENTS; Start 02/13/17 at 13:00; Stop 02/14/17 at 16:28; Status DC Calcium Chloride 1,000 mg STK-MED ONCE IV ; Start 02/12/17 at 10:00; Stop at 16:27; Status DC Epinephrine HCl (EPINEPHrine SYRINGE) 1 mg STK-MED ONCE .ROUTE ; Start 02/12/17 at 10:00; Stop 02/13/17 at 16:27; Status DC Dextrose (Dextrose 50%-Water Syringe) 25 gm STK-MED ONCE IV ; Start 02/12/17 at 10:00; Stop 02/13/17 at 16:27; Status DC Sodium Bicarbonate 50 meq STK-MED ONCE .ROUTE ; Start 02/12/17 at 10:00; Stop 02/13/17 at 16:27; Status DC Methylprednisolone Sodium Succinate (SOLU-Medrol 125MG VIAL) 100 mg TID IV Last administered on 02/18/17 08:42; Start 02/14/17 at 18:00 Norepinephrine Bitartrate 250 ml @ 0 mls/hr CONT PRN IV SEE I/O RECORD; Start 02/14/17 at 15:30; Status Cancel Famotidine (Pepcid) 20 mg DAILY IVP Last administered on 02/18/17 08:36; Start 02/15/17 at 09:00 Amino Acids/ Glycerin/ Electrolytes 1,000 ml @ 80 mls/hr [id number] IV Last administered on 02/15/17 09:32; Start 02/15/17 at 08:45; Stop 02/15/17 at 15:14; Status DC Albumin Human 100 ml @ 100 mls/hr 1X ONCE IV Last administered on 02/15/17 09 :30; Start 02/15/17 at 08:45; Stop 02/15/17 at 09:44; Status DC Furosemide (Lasix) 40 mg 1X ONCE IVP ; Start 02/15/17 at 08:45; Stop 02/15/17 at 09:18; Status DC Piperacillin Sod/ Tazobactam Sod 2.25 gm/Sodium Chloride 50 ml @ 100 mls/hr Q6HRS IV Last administered on 02/16/17 05:52; Start 02/15/17 at 12:00; Stop 03/25 at 09:17; Status DC Daptomycin 340 mg/ Sodium Chloride 50 ml @ 100 mls/hr ONCE ONCE IV Last administered on 02/15/17 11:15; Start 02/15/17 at 11:15; Stop 02/15/17 at 11:44; Status DC Dextrose/Sodium Chloride 1,000 ml @ 40 mls/hr Q24H IV Last administered on 17:03; Start 02/15/17 at 15:15 Lidocaine/Sodium Bicarbonate (Buffered Lidocaine 1%) 3 ml 1X ONCE IJ Last administered on 02/15/17 16:00; Start 02/15/17 at 15:45; Stop 02/15/17 at 15:46; Status DC Heparin Sodium/ Sodium Chloride 6,000 unit 1X ONCE IV ; Start 02/15/17 at 15:45 ; Stop 02/15/17 at 15:46; Status DC Sodium Chloride 1,000 ml @ 1,000 mls/hr Q1H PRN IV hypotension; Start 02/16/17 at 06:38; Stop 02/16/17 at 12:37; Status DC Info (PHARMACY MONITORING -- do not chart) 1 each PRN DAILY PRN MC SEE COMMENTS ; Start 02/16/17 at 06:45 Info (PHARMACY MONITORING -- do not chart) 1 each PRN DAILY PRN MC SEE COMMENTS ; Start 02/16/17 at 06:45; Stop 02/16/17 at 09:19; Status DC Info (PHARMACY MONITORING -- do not chart) 1 each PRN DAILY PRN MC SEE COMMENTS ; Start 02/16/17 at 06:45; Stop 02/16/17 at 09:19; Status DC Albumin Human 100 ml @ 100 mls/hr 1X ONCE IV Last administered on 02/16/17 07:18; Start 02/16/17 at 07:00; Stop 02/16/17 at 07:59; Status DC Piperacillin Sod/ Tazobactam Sod 2.25 gm/Sodium Chloride 50 ml @ 100 mls/hr Q8HRS IV Last administered on 02/18/17 05:55; Start 02/16/17 at 14:00; Stop at 07:22; Status DC Daptomycin 340 mg/ Sodium Chloride 50 ml @ 100 mls/hr QODAY IV Last administered on 02/17/17 12:22; Start 02/17/17 at 09:00; Stop 02/18/17 at 07:22 ; Status DC Sodium Chloride 1,000 ml @ 1,000 mls/hr Q1H PRN IV hypotension; Start 02/17/17 at 08:30; Stop 02/17/17 at 16:00; Status DC Albumin Human 200 ml @ 200 mls/hr 1X PRN PRN IV Hypotension; Start 02/17/17 at 08:30; Stop 02/17/17 at 16:00; Status DC Sodium Chloride 1,000 ml @ 400 mls/hr Q2H30M PRN IV PATENCY; Start 02/17/17 at 08:30; Stop 02/17/17 at 16:00; Status DC Info (PHARMACY MONITORING -- do not chart) 1 each PRN DAILY PRN MC SEE COMMENTS ; Start 02/17/17 at 08:30; Status UNV Info (PHARMACY MONITORING -- do not chart) 1 each PRN DAILY PRN MC SEE COMMENTS ; Start 02/17/17 at 08:30; Status UNV Heparin Sodium (Porcine) (Heparin Sq) 5,000 unit Q8HRS SQ Last administered on 02/18/17 05:59; Start 02/17/17 at 14:00 Bisacodyl (Dulcolax Supp) 10 mg PRN DAILY PRN MS CONSTIPATION; Start 02/17/17 at 15:00 Polyethylene Glycol (miraLAX PACKET) 17 gm PRN DAILY PRN FT CONSTIPATION; Start 02/17/17 at 15:00 Levetiracetam 500 mg/Sodium Chloride 100 ml @ 400 mls/hr Q12HR IV Last administered on 02/18/17 08:50; Start 02/17/17 at 21:00 Vancomycin HCl (Vanco Per Pharmacy) 1 each PRN DAILY PRN MC SEE COMMENTS; Start 02/18/17 at 07:30 Active Scripts Active Reported Latuda (Lurasidone Hcl) 20 Mg Tablet 20 Mg PO AFTRNOON Remeron (Mirtazapine) 15 Mg Tablet 1 Tab PO QHS Oxybutynin Chloride Er (Oxybutynin Chloride) 10 Mg Tab.er.24 1 Tab PO DAILY Multivitamins (Multivitamin) 1 Each Tablet 1 Tab PO DAILY Latuda (Lurasidone Hcl) 20 Mg Tablet 10 Mg PO AFTRNOON Lorazepam 0.5 Mg Tablet 1 Tab PO QEVNG Duoneb 0.5-3(2.5) Mg/3 Ml (Albuterol/Ipratropium) 3 Ml Ampul.neb 3 Ml NEB BID Duoneb 0.5-3(2.5) Mg/3 Ml (Albuterol/Ipratropium) 3 Ml Ampul.neb 3 Ml NEB Q4H PRN Calcium Carbonate 500 Mg Tablet 1,000 Mg PO Q4HRS PRN Nicotine Gum (Nicotine Polacrilex) 4 Mg Gum 4 Mg BC Milk Of Magnesia (Magnesium Hydroxide) 400 Mg/5 Ml Oral.susp 400 Mg PO Q3DAYS PRN Milk Of Magnesia (Magnesium Hydroxide) 400 Mg/5 Ml Oral.susp 400 Mg PO Q3DAYS PRN Lorazepam 1 Mg Tablet 1 Tab PO Q12HR PRN Ibuprofen 400 Mg Tablet 200 Mg PO Q8HRS PRN Cough Drops (Eucalyptus Oil/Menthol) 7 Mg Lozenge 7 Mg MM Q4HRS PRN Tylenol (Acetaminophen) 325 Mg Tablet 650 Mg PO Q4HRS PRN Lovaza ([place]-3 Acid Ethyl Esters) 1 Gm Capsule 1 Cap PO QID Gabapentin 400 Mg Capsule 400 Mg PO QID Lorazepam 1 Mg Tablet 1 Tab PO BID Latuda (Lurasidone Hcl) 60 Mg Tablet 60 Mg PO BID Advair 100-50 Diskus (Fluticasone/Salmeterol) 1 Each Disk.w.dev 1 Puff IH BID Acetaminophen 325 Mg Capsule 650 Mg PO BID Vitamin D (Cholecalciferol (Vitamin D3)) 2,000 Unit Capsule 800 Unit PO DAILY Vitals/I & O Vital Sign - Last 24 Hours 02/17/17 02/17/17 02/17/17 02/17/17 12:00 12:00 12:47 13:00 Temp 98.7 98.7 Pulse 98 86 Resp 30 31 B/P (MAP) 109/56 (73) 115/59 (77) Pulse Ox 100 100 100 O2 Delivery Ventilator Mechanical Ventilator Ventilator Ventilator 02/17/17 02/17/17 02/17/17 02/17/17 14:00 14:45 15:00 16:00 Temp 99.8 99.8 Pulse 83 91 84 Resp 30 30 30 B/P (MAP) 106/57 (73) 128/72 (90) 135/73 (93) Pulse Ox 100 100 100 100 O2 Delivery Ventilator Ventilator Ventilator Ventilator 02/17/17 02/17/17 02/17/17 02/17/17 16:00 16:26 17:00 18:00 Temp 99.1 99.1 Pulse 85 75 Resp 30 30 B/P (MAP) 132/69 (90) 136/76 (96) Pulse Ox 100 100 100 O2 Delivery Mechanical Ventilator Ventilator Ventilator Ventilator 02/17/17 02/17/17 02/17/17 02/17/17 19:00 19:31 20:00 20:00 Temp 99.2 99.2 Pulse 66 74 Resp 30 30 B/P (MAP) 118/64 (82) 134/77 (96) Pulse Ox 100 100 100 O2 Delivery Ventilator Ventilator Ventilator Mechanical Ventilator 02/17/17 02/17/17 02/17/17 02/17/17 21:00 22:00 23:00 23:05 Pulse 67 79 79 Resp 30 30 30 B/P (MAP) 137/73 (94) 133/68 (89) 124/70 (88) Pulse Ox 100 100 100 100 O2 Delivery Ventilator Ventilator Ventilator Ventilator 02/17/17 02/17/17 02/18/17 02/18/17 23:59 23:59 00:58 01:00 Temp 98.7 98.7 Pulse 83 76 Resp 30 30 B/P (MAP) 140/79 (99) 131/77 (95) Pulse Ox 100 100 100 O2 Delivery Ventilator Mechanical Ventilator Ventilator Ventilator 02/18/17 02/18/17 02/18/17 02/18/17 02:00 03:00 03:25 04:00 Temp 99.4 99.4 Pulse 78 65 80 Resp 30 30 30 B/P (MAP) 144/83 (103) 123/75 (91) 153/75 (101) Pulse Ox 100 100 100 100 O2 Delivery Ventilator Ventilator Ventilator Ventilator 02/18/17 02/18/17 02/18/17 02/18/17 04:00 05:00 05:40 06:00 Pulse 85 81 Resp 30 30 B/P (MAP) 140/82 (101) 137/75 (95) Pulse Ox 100 100 100 O2 Delivery Mechanical Ventilator Ventilator Ventilator Ventilator 02/18/17 02/18/17 02/18/17 02/18/17 07:00 08:00 08:00 08:50 Temp 98.9 98.9 Pulse 80 76 Resp 30 30 B/P (MAP) 139/70 (93) 158/87 (110) Pulse Ox 100 100 100 O2 Delivery Ventilator Mechanical Ventilator Ventilator Ventilator 02/18/17 02/18/17 02/18/17 09:00 10:00 11:00 Pulse 76 80 74 Resp 30 30 30 B/P (MAP) 156/91 (112) 145/67 (93) 146/76 (99) Pulse Ox 100 100 100 O2 Delivery Ventilator Ventilator Ventilator Intake and Output 02/18/17 02/18/17 02/19/17 15:00 23:00 07:00 Intake Total 0 ml Output Total 0 ml Balance 0 ml BERONICA VILLATORO MD Feb 18, 2017 11:56
[2017-02-18] MEDS: VANCOMYCIN PER PHARMACY MC PRN (14:13)
[2017-02-18] MEDS ORDERED: VANCOMYCIN 1.5 GM in IV NORMAL SALINE 500ML BAG 500 ML IV ONE (14:30)
--- NOTE | 2017-02-18 16:19 | PDOC ---
PROGRESS NOTES Assessment Assessment Anoxic encephalopathy. Metabolic encephalopathy. Respiratory failure. S/p cardiac arrest received hypothermia, CPR 20 minutes. Renal failure. HTN HLD COPD HCV EEG on 02/17/17: Abnormal. PLEDs. Sharp waves. Slowing. RECOMMENDATIONS/PLAN: Continue life support in ICU. Treat medical and cardiac diseases. Continue Keppra 500 mg IV q12 h. Past Medical History Cardiovascular: HTN, Hyperlipidemia Pulmonary: COPD GI: Constipation, Other (anorexia) Hepatobiliary: Hep A/B/C (C) Psych: Anxiety, Addictions, Depression, Schizophrenia Musculoskeletal: Other (costochondritis) Past Surgical History Past Surgical History: Cataract Removal Family History Family History: No pertinent hx Social History Social History [facility] resident, has a court appointed power of associate attorney but does not have healthcare decision-making velazquez. ALLERGY: Reviewed. MEDICATIONS: Refer to MAR REVIEW OF SYSTEMS: Constitutional: No malnutrition, cachexia. Head: No recent traumatic brain or head injury. Skin: No edema, or rash. Ear: No infection. Eyes: No vision loss, or diplopia. Nose: No bleeding or purulent discharges. Hearing: No hearing decrease. Neck: No injury. Breast: No history of cancer, masses, or discharges. Cardiac: HTN, HLD Pulmonary: CPOD. GI: No GI Ulcer, GI bleeding Urinary/genital: UTI. Endocrine: [id number]. Skeletomuscular: No muscular atrophy. Neurological: see HP. Psychiatric: Denies drug use/abuse. Otherwise, not [id number] review of systems. PHYSICAL EXAMINATION: General appearance in subacute distress. HEENT: Normocephalic and nontraumatic. Eyes, nose, ears, and throat are unremarkable. Neck is supple. No lymphadenopathy. No bruits are heard over the carotid artery. Cardiovascular: S1, S2, seemed regular rate and rhythm. Pulmonary: On vent. Abdomen: Bowel sounds are positive. Extremities: No rash, lesions. NEUROLOGICAL EXAMINATION: On vent. Unresponsive. Not oriented to time, place and person. PERRL. EOMI not elicited. CN: no acute focal findings. Muscle tone: decreased. Muscle strength: no obvious movements observed. DTR: 1 Plantar reflex: No response bilaterally Gait: not examined in bed. Sensory exam: No response to stimuli. Not able to access cerebellar signs elicited. Not able to perform F-T-N test. Objective Objective Vital Signs Date Time Temp Pulse Resp B/P (MAP) Pulse Ox O2 Delivery O2 Flow Rate FiO2 02/18/17 12:54 100 Ventilator 02/18/17 12:00 99.2 78 30 147/79 (101) 99.2 Intake and Output 02/19/17 07:00 Intake Total 100 ml Output Total 0 ml Balance 100 ml Intake IV Total 100 ml Tube Feeding 0 ml Output Urine Total 0 ml Gastric Drainage Total 0 ml # Bowel Movements 1 Vitals Signs Vitals VS - Last 72 Hours, by Label Date Time Temp Pulse Resp B/P (MAP) Pulse Ox O2 Delivery O2 Flow Rate FiO2 02/18/17 12:54 100 Ventilator 02/18/17 12:00 99.2 78 30 147/79 (101) 100 Ventilator 99.2 02/18/17 12:00 Mechanical Ventilator 02/18/17 11:00 74 30 146/76 (99) 100 Ventilator 02/18/17 10:45 100 Ventilator 02/18/17 10:00 80 30 145/67 (93) 100 Ventilator 02/18/17 09:00 76 30 156/91 (112) 100 Ventilator 02/18/17 08:50 100 Ventilator 02/18/17 08:00 98.9 76 30 158/87 (110) 100 Ventilator 98.9 02/18/17 08:00 Mechanical Ventilator 02/18/17 07:00 80 30 139/70 (93) 100 Ventilator 02/18/17 06:00 81 30 137/75 (95) 100 Ventilator 02/18/17 05:40 100 Ventilator 02/18/17 05:00 85 30 140/82 (101) 100 Ventilator 02/18/17 04:00 Mechanical Ventilator 02/18/17 04:00 99.4 80 30 153/75 (101) 100 Ventilator 99.4 02/18/17 03:25 100 Ventilator 02/18/17 03:00 65 30 123/75 (91) 100 Ventilator 02/18/17 02:00 78 30 144/83 (103) 100 Ventilator 02/18/17 01:00 76 30 131/77 (95) 100 Ventilator 02/18/17 00:58 100 Ventilator 02/17/17 23:59 Mechanical Ventilator 02/17/17 23:59 98.7 83 30 140/79 (99) 100 Ventilator 98.7 02/17/17 23:05 100 Ventilator 02/17/17 23:00 79 30 124/70 (88) 100 Ventilator 02/17/17 22:00 79 30 133/68 (89) 100 Ventilator 02/17/17 21:00 67 30 137/73 (94) 100 Ventilator 02/17/17 20:00 Mechanical Ventilator 02/17/17 20:00 99.2 74 30 134/77 (96) 100 Ventilator 99.2 02/17/17 19:31 100 Ventilator 02/17/17 19:00 66 30 118/64 (82) 100 Ventilator 02/17/17 18:00 75 30 136/76 (96) 100 Ventilator 02/17/17 17:00 99.1 85 30 132/69 (90) 100 Ventilator 99.1 02/17/17 16:26 100 Ventilator 02/17/17 16:00 Mechanical Ventilator 02/17/17 16:00 99.8 84 30 135/73 (93) 100 Ventilator 99.8 02/17/17 15:00 91 30 128/72 (90) 100 Ventilator 02/17/17 14:45 100 Ventilator 02/17/17 14:00 83 30 106/57 (73) 100 Ventilator 02/17/17 13:00 86 31 115/59 (77) 100 Ventilator 02/17/17 12:47 100 Ventilator 02/17/17 12:00 Mechanical Ventilator 02/17/17 12:00 98.7 98 30 109/56 (73) 100 Ventilator 98.7 02/17/17 11:10 100 Ventilator 02/17/17 11:00 100 30 117/62 (80) 100 Ventilator 02/17/17 10:00 97 31 111/62 (78) 100 Ventilator 02/17/17 09:15 100 Ventilator 02/17/17 09:00 92 31 139/74 (95) 100 Ventilator 02/17/17 08:00 Mechanical Ventilator 02/17/17 08:00 99.2 71 32 124/73 (90) 100 Ventilator 99.2 02/17/17 07:00 82 30 140/76 (97) 100 Ventilator Laboratory Laboratory Laboratory Tests Test 02/17/17 18:15 02/18/17 00:04 02/18/17 00:05 02/18/17 05:53 Sodium Level 135 mmol/L (136-145) 134 mmol/L (136-145) Glucose (Fingerstick) 141 mg/dL (70-99) 146 mg/dL (70-99) Test 02/18/17 06:01 02/18/17 09:15 White Blood Count 22.3 x10^3/uL (4.0-11.0) Red Blood Count 2.45 x10^6/uL (3.50-5.40) Hemoglobin 8.1 g/dL (12.0-15.5) Hematocrit 23.8 % (36.0-47.0) Mean Corpuscular Volume 97 fL (79-100) Mean Corpuscular Hemoglobin 33 pg (25-35) Mean Corpuscular Hemoglobin Concent 34 g/dL (31-37) Red Cell Distribution Width 14.4 % (11.5-14.5) Platelet Count 149 x10^3/uL (140-400) Neutrophils (%) (Auto) 96 % (31-73) Lymphocytes (%) (Auto) 3 % (24-48) Monocytes (%) (Auto) 1 % (0-9) Eosinophils (%) (Auto) 0 % (0-3) Basophils (%) (Auto) 0 % (0-3) Neutrophils # (Auto) 21.3 x10^3uL (1.8-7.7) Lymphocytes # (Auto) 0.6 x10^3/uL (1.0-4.8) Monocytes # (Auto) 0.3 x10^3/uL (0.0-1.1) Eosinophils # (Auto) 0.0 x10^3/uL (0.0-0.7) Basophils # (Auto) 0.0 x10^3/uL (0.0-0.2) Segmented Neutrophils % 60 % (35-66) Band Neutrophils % 30 % (0-9) Lymphocytes % 3 % (24-48) Monocytes % 1 % (0-10) Metamyelocytes % 2 % (0-0) Myelocytes % 1 % (0-0) Promyelocytes % 3 % (0-0) Nucleated Red Blood Cells 4 Toxic Granulation Slight Platelet Estimate Adequate (ADEQUATE) Polychromasia Slight Prothrombin Time 16.9 SEC (11.7-14.0) Prothromb Time International Ratio 1.5 (0.8-1.1) Sodium Level 134 mmol/L (136-145) Potassium Level 3.7 mmol/L (3.5-5.1) Chloride Level 97 mmol/L (98-107) Carbon Dioxide Level 26 mmol/L (21-32) Anion Gap 11 (6-14) Blood Urea Nitrogen 59 mg/dL (7-20) Creatinine 3.8 mg/dL (0.6-1.0) Estimated GFR (Cockcroft-Gault) 15.0 Glucose Level 149 mg/dL (70-99) Calcium Level 8.5 mg/dL (8.5-10.1) Phosphorus Level 3.7 mg/dL (2.6-4.7) Magnesium Level 2.3 mg/dL (1.8-2.4) Albumin 2.2 g/dL (3.4-5.0) O2 Saturation 98 % (92-99) Arterial Blood pH 7.38 (7.35-7.45) Arterial Blood pCO2 at Patient Temp 40 mmHg (35-46) Arterial Blood pO2 at Patient Temp 137 mmHg (75-108) Arterial Blood HCO3 23 mmol/L (21-28) Arterial Blood Base Excess -2 mmol/L (-3-3) FiO2 40 Microbiology 02/15/17 Blood Culture - Preliminary, Resulted NO GROWTH AFTER 3 DAYS 02/12/17 Urine Culture - Final, Complete 02/12/17 Urine Culture Result 1 (ELIZABETH) - Final, Complete Medication Medications Current Medications Levetiracetam 500 mg/Sodium Chloride 100 ml @ 400 mls/hr Q12HR IV Last administered on 02/18/17 08:50; Start 02/17/17 at 21:00 Vancomycin HCl 1 each 1X ONCE MC ; Start 02/20/17 at 05:00; Stop 02/20/17 at 05 :01 Vancomycin HCl (Vanco Per Pharmacy) 1 each PRN DAILY PRN MC SEE COMMENTS Last administered on 02/18/17 14:13; Start 02/18/17 at 07:30 Vancomycin HCl 1.5 gm/Sodium Chloride 500 ml @ 250 mls/hr 1X ONCE IV Last administered on 02/18/17 14:43; Start 02/18/17 at 14:30; Stop 02/18/17 at 16:29 Comment Review of Relevant I have reviewed the following items reji (where applicable) has been applied. YASMINE BERNAL MD Feb 18, 2017 16:19
[2017-02-18] MEDS: IV DEXTROSE 5 %-0.2 % NACL 1,000 ML IV SCH (20:52)
[2017-02-19] VITALS (25 sets, daily range): BP systolic 95–163; BP diastolic 59–86
[2017-02-19] MEDS: HEPARIN PF for SUB-Q USE 5,000 UNIT/0.5 ML VIAL. SQ SCH ×3 (05:32→22:21)
[2017-02-19 06:15] LABS: BASO % 0 % (0-3); EOS % 0 % (0-3); HEMOGLOBIN 7.4 g/dL (12.0-15.5); LYMPH # 0.6 x10^3/uL (1.0-4.8); LYMPH % 2 % (24-48); MEAN CORPUSCULAR HEMOGLOBIN 35 pg (25-35); MEAN CORPUSCULAR HGB CONC 36 g/dL (31-37); MEAN CORPUSCULAR VOLUME 98 fL (79-100); MONO % 2 % (0-9); NEUT % 96 % (31-73); PLATELET COUNT 159 x10^3/uL (140-400); RED CELL DISTRIBUTION WIDTH 14.4 % (11.5-14.5); WHITE BLOOD COUNT 29.4 x10^3/uL (4.0-11.0)
[2017-02-19 06:20] LABS: HEMATOCRIT 20.6 % (36.0-47.0)
[2017-02-19 06:47] LABS: ALBUMIN 1.9 g/dL (3.4-5.0); CALCIUM 8.1 mg/dL (8.5-10.1); CREATININE 5.1 mg/dL (0.6-1.0); GFR 10.7; PHOSPHORUS 4.2 mg/dL (2.6-4.7); POTASSIUM 3.8 mmol/L (3.5-5.1)
[2017-02-19 07:39] LABS: HCO3 ABG 23 mmol/L (21-28); PO2 ABG 114 mmHg (75-108); SAT O2 ABG 98 % (92-99)
[2017-02-19 07:40] LABS: FIO2 ABG 40; PCO2 ABG 40 mmHg (35-46); PH ABG 7.38 (7.35-7.45)
--- NOTE | 2017-02-19 08:56 | PDOC ---
Infectious Disease Note Subjective Subjective Off sedation -nonresponsive ROS ROS Unobtainable Vital Sign Vital Signs Vital Signs Date Time Temp Pulse Resp B/P (MAP) Pulse Ox O2 Delivery O2 Flow Rate FiO2 02/19/17 08:00 98.6 97 30 138/79 (98) 100 Ventilator 98.6 Physical Exam PHYSICAL EXAM GENERAL: Intubated, non responsive HEENT: PERRL, OGT, ETT LUNGS: Clear HEART: S1S2, regular ABD: Soft, No grimace or guarding to palpation : Velazquez EXT: 1 to 2 plus edema, no cyanosis SUPERINTENDENT MEASUREMENT: Unresponsive verbal/tactile stimuli. ? Pain withdrawl SKIN: No rash RIJ. (02/13). clean [facility]. (02/15). Labs Lab Laboratory Tests Test 02/18/17 09:15 02/18/17 18:03 02/19/17 00:02 02/19/17 06:05 O2 Saturation 98 % (92-99) Arterial Blood pH 7.38 (7.35-7.45) Arterial Blood pCO2 at Patient Temp 40 mmHg (35-46) Arterial Blood pO2 at Patient Temp 137 mmHg (75-108) Arterial Blood HCO3 23 mmol/L (21-28) Arterial Blood Base Excess -2 mmol/L (-3-3) FiO2 40 Glucose (Fingerstick) 142 mg/dL (70-99) 147 mg/dL (70-99) White Blood Count 29.4 x10^3/uL (4.0-11.0) Red Blood Count 2.10 x10^6/uL (3.50-5.40) Hemoglobin 7.4 g/dL (12.0-15.5) Hematocrit 20.6 % (36.0-47.0) Mean Corpuscular Volume 98 fL (79-100) Mean Corpuscular Hemoglobin 35 pg (25-35) Mean Corpuscular Hemoglobin Concent 36 g/dL (31-37) Red Cell Distribution Width 14.4 % (11.5-14.5) Platelet Count 159 x10^3/uL (140-400) Neutrophils (%) (Auto) 96 % (31-73) Lymphocytes (%) (Auto) 2 % (24-48) Monocytes (%) (Auto) 2 % (0-9) Eosinophils (%) (Auto) 0 % (0-3) Basophils (%) (Auto) 0 % (0-3) Neutrophils # (Auto) 28.2 x10^3uL (1.8-7.7) Lymphocytes # (Auto) 0.6 x10^3/uL (1.0-4.8) Monocytes # (Auto) 0.5 x10^3/uL (0.0-1.1) Eosinophils # (Auto) 0.0 x10^3/uL (0.0-0.7) Basophils # (Auto) 0.0 x10^3/uL (0.0-0.2) Sodium Level 134 mmol/L (136-145) Potassium Level 3.8 mmol/L (3.5-5.1) Chloride Level 96 mmol/L (98-107) Carbon Dioxide Level 24 mmol/L (21-32) Anion Gap 14 (6-14) Blood Urea Nitrogen 88 mg/dL (7-20) Creatinine 5.1 mg/dL (0.6-1.0) Estimated GFR (Cockcroft-Gault) 10.7 Glucose Level 130 mg/dL (70-99) Calcium Level 8.1 mg/dL (8.5-10.1) Phosphorus Level 4.2 mg/dL (2.6-4.7) Albumin 1.9 g/dL (3.4-5.0) Test 02/19/17 06:06 02/19/17 07:25 Glucose (Fingerstick) 126 mg/dL (70-99) O2 Saturation 98 % (92-99) Arterial Blood pH 7.38 (7.35-7.45) Arterial Blood pCO2 at Patient Temp 40 mmHg (35-46) Arterial Blood pO2 at Patient Temp 114 mmHg (75-108) Arterial Blood HCO3 23 mmol/L (21-28) Arterial Blood Base Excess -2 mmol/L (-3-3) FiO2 40 Objective Assessment MRSA sepsis/bacteremia, POA. 02/12. -TTE no evidence veg; Repeat BC from 02/15 neg Anemia Encephalopathy - nonresponsive S/P Cardiac arrest Respiratory failure COPD Leukocytosis - better, on high dose steroids DARYA. Now on HD Schizophrenia Plan Plan of Care Cont Vanc Needs DNR/DNI Needs palliative extubation as overall prognosis is poor Critically ill JAVIER HUGHES MD Feb 19, 2017 08:56
[2017-02-19] MEDS ORDERED: IV NORMAL SALINE 1000ML BAG 1,000 ML IV PRN ×2 (09:08)
[2017-02-19] MEDS ORDERED: DIALYSIS PATIENT. MC PRN ×2 (09:15)
[2017-02-19] MEDS ORDERED: ALBUMIN HUMAN 25% 200 ML IV PRN (09:15)
--- NOTE | 2017-02-19 09:21 | CONS ---
DATE OF CONSULTATION: 02/19/2017 DIAGNOSIS: Cardio-respiratory arrest on 02/12/2017 leading to anoxic brain injury. She has a history of paranoid schizophrenia and COPD and was a chronic group home resident. We were asked to see her regarding the advisability for conservative measures in the face of likely futile ongoing aggressive care. As a result of this question and her status as a velez of the state, we were asked to generate a formal consultation by her court appointed guardian. HISTORY OF PRESENT ILLNESS: The patient is a 56-year-old woman with longstanding paranoid schizophrenia and COPD who has been a mental health group home resident for many years. She has had a court appointed guardian, Mr. Drew Hernandez who has known her for 20 years. At the group home, she had an unwitnessed arrest. She was intubated and brought here and now remains an inpatient in the ICU on a ventilator. She has off any sedative medications including narcotics and benzodiazepines. She remains minimally responsive to pain. Currently, she does have respiratory drive and responsive pupils with no other responsiveness identified on exam. In addition, she has had acute renal failure and is on hemodialysis since admission. At this time, it is clear that ongoing aggressive care is futile. From an ethical standpoint, our ethics team recommends consideration of conservative measures. In the face of her dismal prognosis, we recommend extubation and no a "no code status" and stopping hemodialysis as further intensive therapy will not be beneficial. We will be in contact with the court appointing guardian, Mr. Drew Hernandez to get a decision from the court based on this summary and the summary of her attending physicians. Thank you for taking this into consideration. CHRISTIAN JENNINGS MD DR: HOLLI/kelley JOB#: [id number] / [id number] CHIRAG
[2017-02-19] MEDS: VANCOMYCIN PER PHARMACY MC PRN (09:30)
--- NOTE | 2017-02-19 09:32 | PDOC ---
G I PROGRESS NOTE Subjective Unresponsive, not sedated, on ventilator. Objective NG bilious. Physical Exam Abdomen benign. Review of Relevant I have reviewed the following items reji (where applicable) has been applied. Labs Laboratory Tests Test 02/17/17 18:15 02/18/17 00:04 02/18/17 00:05 02/18/17 05:53 Sodium Level 135 mmol/L (136-145) 134 mmol/L (136-145) Glucose (Fingerstick) 141 mg/dL (70-99) 146 mg/dL (70-99) Test 02/18/17 06:01 02/18/17 09:15 02/18/17 18:03 02/19/17 00:02 White Blood Count 22.3 x10^3/uL (4.0-11.0) Red Blood Count 2.45 x10^6/uL (3.50-5.40) Hemoglobin 8.1 g/dL (12.0-15.5) Hematocrit 23.8 % (36.0-47.0) Mean Corpuscular Volume 97 fL (79-100) Mean Corpuscular Hemoglobin 33 pg (25-35) Mean Corpuscular Hemoglobin Concent 34 g/dL (31-37) Red Cell Distribution Width 14.4 % (11.5-14.5) Platelet Count 149 x10^3/uL (140-400) Neutrophils (%) (Auto) 96 % (31-73) Lymphocytes (%) (Auto) 3 % (24-48) Monocytes (%) (Auto) 1 % (0-9) Eosinophils (%) (Auto) 0 % (0-3) Basophils (%) (Auto) 0 % (0-3) Neutrophils # (Auto) 21.3 x10^3uL (1.8-7.7) Lymphocytes # (Auto) 0.6 x10^3/uL (1.0-4.8) Monocytes # (Auto) 0.3 x10^3/uL (0.0-1.1) Eosinophils # (Auto) 0.0 x10^3/uL (0.0-0.7) Basophils # (Auto) 0.0 x10^3/uL (0.0-0.2) Segmented Neutrophils % 60 % (35-66) Band Neutrophils % 30 % (0-9) Lymphocytes % 3 % (24-48) Monocytes % 1 % (0-10) Metamyelocytes % 2 % (0-0) Myelocytes % 1 % (0-0) Promyelocytes % 3 % (0-0) Nucleated Red Blood Cells 4 Toxic Granulation Slight Platelet Estimate Adequate (ADEQUATE) Polychromasia Slight Prothrombin Time 16.9 SEC (11.7-14.0) Prothromb Time International Ratio 1.5 (0.8-1.1) Sodium Level 134 mmol/L (136-145) Potassium Level 3.7 mmol/L (3.5-5.1) Chloride Level 97 mmol/L (98-107) Carbon Dioxide Level 26 mmol/L (21-32) Anion Gap 11 (6-14) Blood Urea Nitrogen 59 mg/dL (7-20) Creatinine 3.8 mg/dL (0.6-1.0) Estimated GFR (Cockcroft-Gault) 15.0 Glucose Level 149 mg/dL (70-99) Calcium Level 8.5 mg/dL (8.5-10.1) Phosphorus Level 3.7 mg/dL (2.6-4.7) Magnesium Level 2.3 mg/dL (1.8-2.4) Albumin 2.2 g/dL (3.4-5.0) O2 Saturation 98 % (92-99) Arterial Blood pH 7.38 (7.35-7.45) Arterial Blood pCO2 at Patient Temp 40 mmHg (35-46) Arterial Blood pO2 at Patient Temp 137 mmHg (75-108) Arterial Blood HCO3 23 mmol/L (21-28) Arterial Blood Base Excess -2 mmol/L (-3-3) FiO2 40 Glucose (Fingerstick) 142 mg/dL (70-99) 147 mg/dL (70-99) Test 02/19/17 06:05 02/19/17 06:06 02/19/17 07:25 White Blood Count 29.4 x10^3/uL (4.0-11.0) Red Blood Count 2.10 x10^6/uL (3.50-5.40) Hemoglobin 7.4 g/dL (12.0-15.5) Hematocrit 20.6 % (36.0-47.0) Mean Corpuscular Volume 98 fL (79-100) Mean Corpuscular Hemoglobin 35 pg (25-35) Mean Corpuscular Hemoglobin Concent 36 g/dL (31-37) Red Cell Distribution Width 14.4 % (11.5-14.5) Platelet Count 159 x10^3/uL (140-400) Neutrophils (%) (Auto) 96 % (31-73) Lymphocytes (%) (Auto) 2 % (24-48) Monocytes (%) (Auto) 2 % (0-9) Eosinophils (%) (Auto) 0 % (0-3) Basophils (%) (Auto) 0 % (0-3) Neutrophils # (Auto) 28.2 x10^3uL (1.8-7.7) Lymphocytes # (Auto) 0.6 x10^3/uL (1.0-4.8) Monocytes # (Auto) 0.5 x10^3/uL (0.0-1.1) Eosinophils # (Auto) 0.0 x10^3/uL (0.0-0.7) Basophils # (Auto) 0.0 x10^3/uL (0.0-0.2) Sodium Level 134 mmol/L (136-145) Potassium Level 3.8 mmol/L (3.5-5.1) Chloride Level 96 mmol/L (98-107) Carbon Dioxide Level 24 mmol/L (21-32) Anion Gap 14 (6-14) Blood Urea Nitrogen 88 mg/dL (7-20) Creatinine 5.1 mg/dL (0.6-1.0) Estimated GFR (Cockcroft-Gault) 10.7 Glucose Level 130 mg/dL (70-99) Calcium Level 8.1 mg/dL (8.5-10.1) Phosphorus Level 4.2 mg/dL (2.6-4.7) Albumin 1.9 g/dL (3.4-5.0) Glucose (Fingerstick) 126 mg/dL (70-99) O2 Saturation 98 % (92-99) Arterial Blood pH 7.38 (7.35-7.45) Arterial Blood pCO2 at Patient Temp 40 mmHg (35-46) Arterial Blood pO2 at Patient Temp 114 mmHg (75-108) Arterial Blood HCO3 23 mmol/L (21-28) Arterial Blood Base Excess -2 mmol/L (-3-3) FiO2 40 Laboratory Tests Test 02/18/17 18:03 02/19/17 00:02 02/19/17 06:05 02/19/17 06:06 Glucose (Fingerstick) 142 mg/dL (70-99) 147 mg/dL (70-99) 126 mg/dL (70-99) White Blood Count 29.4 x10^3/uL (4.0-11.0) Red Blood Count 2.10 x10^6/uL (3.50-5.40) Hemoglobin 7.4 g/dL (12.0-15.5) Hematocrit 20.6 % (36.0-47.0) Mean Corpuscular Volume 98 fL (79-100) Mean Corpuscular Hemoglobin 35 pg (25-35) Mean Corpuscular Hemoglobin Concent 36 g/dL (31-37) Red Cell Distribution Width 14.4 % (11.5-14.5) Platelet Count 159 x10^3/uL (140-400) Neutrophils (%) (Auto) 96 % (31-73) Lymphocytes (%) (Auto) 2 % (24-48) Monocytes (%) (Auto) 2 % (0-9) Eosinophils (%) (Auto) 0 % (0-3) Basophils (%) (Auto) 0 % (0-3) Neutrophils # (Auto) 28.2 x10^3uL (1.8-7.7) Lymphocytes # (Auto) 0.6 x10^3/uL (1.0-4.8) Monocytes # (Auto) 0.5 x10^3/uL (0.0-1.1) Eosinophils # (Auto) 0.0 x10^3/uL (0.0-0.7) Basophils # (Auto) 0.0 x10^3/uL (0.0-0.2) Sodium Level 134 mmol/L (136-145) Potassium Level 3.8 mmol/L (3.5-5.1) Chloride Level 96 mmol/L (98-107) Carbon Dioxide Level 24 mmol/L (21-32) Anion Gap 14 (6-14) Blood Urea Nitrogen 88 mg/dL (7-20) Creatinine 5.1 mg/dL (0.6-1.0) Estimated GFR (Cockcroft-Gault) 10.7 Glucose Level 130 mg/dL (70-99) Calcium Level 8.1 mg/dL (8.5-10.1) Phosphorus Level 4.2 mg/dL (2.6-4.7) Albumin 1.9 g/dL (3.4-5.0) Test 02/19/17 07:25 O2 Saturation 98 % (92-99) Arterial Blood pH 7.38 (7.35-7.45) Arterial Blood pCO2 at Patient Temp 40 mmHg (35-46) Arterial Blood pO2 at Patient Temp 114 mmHg (75-108) Arterial Blood HCO3 23 mmol/L (21-28) Arterial Blood Base Excess -2 mmol/L (-3-3) FiO2 40 Microbiology 02/15/17 Blood Culture - Preliminary, Resulted NO GROWTH AFTER 3 DAYS 02/12/17 Urine Culture - Final, Complete 02/12/17 Urine Culture Result 1 (ELIZABETH) - Final, Complete Medications Current Medications Calcium Chloride 1,000 mg 1X ONCE IV Last administered on 02/12/17 15:35; Start 02/12/17 at 16:00; Stop 02/12/17 at 16:35; Status DC Dextrose (Dextrose 50%-Water Syringe) 25 gm 1X ONCE IV Last administered on 15:33; Start 02/12/17 at 16:00; Stop 02/12/17 at 16:35; Status DC Sodium Bicarbonate 50 meq 1X ONCE IV Last administered on 02/12/17 15:35; Start 02/12/17 at 16:00; Stop 02/12/17 at 16:35; Status DC Furosemide (Lasix) 40 mg 1X ONCE IVP Last administered on 02/12/17 16:42; Start 02/12/17 at 16:30; Stop 02/12/17 at 16:35; Status DC Sodium Chloride 1,000 ml @ 1,000 mls/hr Q1H IV Last administered on 02/12/17 15:50; Start 02/12/17 at 16:57; Stop 02/13/17 at 07:23; Status DC Fentanyl Citrate (Fentanyl 2ml Vial) 25 mcg PRN Q30MIN PRN IV SED; Start at 17:00 Lorazepam (Ativan) 1 mg PRN Q30MIN PRN IV SEDATION; Start 02/12/17 at 17:00 Fentanyl Citrate 30 ml @ 2.5 mls/hr CONT PRN PRN IV IVF Last administered on 03:27; Start 02/12/17 at 17:00 Propofol 100 ml @ 0 mls/hr CONT PRN IV SEE I/O RECORD; Start 02/12/17 at 17:00 Vecuronium [place] (Norcuron Bolus) DOSE AT 0.1 mg/kg PRN Q30MIN PRN IV SHIVERING Last administered on 02/12/17 19:46; Start 02/12/17 at 17:00; Stop 02/13 at 11:01; Status DC Meperidine HCl (Demerol) 12.5 mg PRN Q30MIN PRN IV SHIVERING; Start 02/12/17 at 17:00 Multi-Ingred Cream/Lotion/Oil/ Oint (Artificial Tears Eye Oint) 1 silvestre PRN Q6HRS PRN OU 0.5 INCH FOR DRY EYE; Start 02/12/17 at 17:00 Famotidine (Pepcid) 20 mg BID IVP Last administered on 02/14/17 10:47; Start at 09:00; Stop 02/14/17 at 16:23; Status DC Aspirin (Aspirin) 300 mg DAILY MT Last administered on 02/17/17 15:11; Start 02/13/17 at 09:00 Sodium Chloride (Normal Saline Flush) 3 ml QSHIFT PRN IV AFTER MEDS AND BLOOD DRAWS; Start 02/12/17 at 17:00 Acetaminophen (Tylenol) 650 mg Q6HRS NG Last administered on 02/13/17 05:51; Start 02/12/17 at 18:00; Stop 02/13/17 at 17:59; Status DC Acetaminophen (Acetaminophen Supp) 650 mg PRN Q6HRS PRN MT MILD PAIN / TEMP; Start 02/13/17 at 17:00 Acetaminophen (Tylenol) 650 mg PRN Q6HRS PRN NG MILD PAIN / TEMP; Start at 17:00 Info 1 ea DAILY PRN MC PER PROTOCOL; Start 02/14/17 at 17:00 Sodium Chloride 500 ml @ 500 mls/hr 1X ONCE IV Last administered on 02/12/17 16:30; Start 02/12/17 at 17:15; Stop 02/12/17 at 18:14; Status DC Sodium Chloride 500 ml @ 500 mls/hr 1X ONCE IV Last administered on 02/12/17 16:50; Start 02/12/17 at 17:15; Stop 02/12/17 at 18:14; Status DC Sodium Chloride 1,000 ml @ 100 mls/hr Q10H IV Last administered on 02/13/17 06 :36; Start 02/12/17 at 19:00; Stop 02/13/17 at 10:51; Status DC Famotidine (Pepcid) 20 mg 1X ONCE PO Last administered on 02/12/17 19:57; Start 02/12/17 at 17:30; Stop 02/12/17 at 17:34; Status DC Methylprednisolone Sodium Succinate (SOLU-Medrol 40MG VIAL) 100 mg TID IV Last administered on 02/14/17 11:01; Start 02/12/17 at 18:00; Stop 02/14/17 at 12:00; Status DC Sodium Chloride 1,000 ml @ 1,000 mls/hr 1X ONCE IV Last administered on 19:31; Start 02/12/17 at 18:15; Stop 02/12/17 at 19:14; Status DC Piperacillin Sod/ Tazobactam Sod (Zosyn Per Pharmacy) 1 each PRN DAILY PRN MC SEE COMMENTS; Start 02/12/17 at 19:15; Stop 02/18/17 at 07:22; Status DC Vancomycin HCl (Vanco Per Pharmacy) 1 each PRN DAILY PRN MC SEE COMMENTS Last administered on 02/13/17 16:50; Start 02/12/17 at 19:15; Stop 02/14/17 at 07:57; Status DC Piperacillin Sod/ Tazobactam Sod 3.375 gm/Sodium Chloride 50 ml @ 100 mls/hr Q6HRS IV Last administered on 02/15/17 05:58; Start 02/12/17 at 19:30; Stop 02/15 at 09:37; Status DC Vancomycin HCl 1 gm/Sodium Chloride 250 ml @ 250 mls/hr 1X ONCE IV Last administered on 02/12/17 20:00; Start 02/12/17 at 19:30; Stop 02/12/17 at 20:29; Status DC Sodium Bicarbonate 50 meq 1X ONCE IV Last administered on 02/12/17 19:59; Start 02/12/17 at 19:30; Stop 02/12/17 at 19:31; Status DC Norepinephrine Bitartrate 250 ml @ 0 mls/hr CONT PRN IV SEE I/O RECORD Last administered on 02/16/17 07:18; Start 02/12/17 at 19:30 Norepinephrine Bitartrate 250 ml @ As Directed STK-MED ONCE IV ; Start 02/12/17 at 19:25; Stop 02/12/17 at 19:26; Status DC Vancomycin HCl 750 mg/Sodium Chloride 250 ml @ 250 mls/hr Q24H IV Last administered on 02/13/17 20:34; Start 02/13/17 at 20:00; Stop 02/14/17 at 07:57; Status DC Vancomycin HCl 1 each 1X ONCE MC ; Start 02/14/17 at 19:30; Stop 02/14/17 at 19: 31; Status Cancel Sodium Chloride 1,000 ml @ 1,000 mls/hr 1X ONCE IV Last administered on 05:05; Start 02/13/17 at 04:45; Stop 02/13/17 at 05:44; Status DC Sodium Chloride 1,000 ml @ 1,000 mls/hr 1X ONCE IV Last administered on 05:35; Start 02/13/17 at 05:30; Stop 02/13/17 at 06:29; Status DC Magnesium Sulfate/ Dextrose 50 ml @ 25 mls/hr PRN DAILY PRN IV for Mag < 1.7 on am labs; Start 02/13/17 at 10:45 Dextrose/Sodium Chloride 1,000 ml @ 75 mls/hr [id number] IV Last administered on 02/15/17 01:52; Start 02/13/17 at 11:00; Stop 02/15/17 at 08:52; Status DC Vecuronium [place] (Norcuron Bolus) 5 mg PRN Q30MIN PRN IV SHIVERING; Start 02/13/17 at 11:15 Lidocaine/Sodium Bicarbonate (Buffered Lidocaine 1%) 3 ml 1X ONCE IJ Last administered on 02/13/17 11:40; Start 02/13/17 at 11:15; Stop 02/13/17 at 11:26; Status DC Heparin Sodium/ Sodium Chloride 60 unit 1X ONCE IV Last administered on 11:40; Start 02/13/17 at 11:15; Stop 02/13/17 at 11:26; Status DC Lidocaine/Sodium Bicarbonate (Buffered Lidocaine 1%) 20 ml STK-MED ONCE IJ ; Start 02/13/17 at 11:22; Stop 02/13/17 at 11:29; Status DC Heparin Sodium (Porcine) (Heparin Sodium) 2,075 unit 1X ONCE IV Last administered on 02/13/17 12:45; Start 02/13/17 at 11:45; Stop 02/13/17 at 11:56; Status DC Heparin Sodium/ Dextrose 500 ml @ 16.5 mls/hr CONT PRN IV SEE I/O RECORD Last administered on 02/13/17 12:47; Start 02/13/17 at 11:45; Stop 02/14/17 at 13:53; Status DC Heparin Sodium (Porcine) (Heparin Sodium) 1,550 unit PRN Q6HRS PRN IV FOR UFH LEVEL LESS THAN 0.2 Last administered on 02/13/17 20:22; Start 02/13/17 at 11:45 ; Stop 02/14/17 at 13:53; Status DC Heparin Sodium (Porcine) (Heparin Sodium) 800 unit PRN Q6HRS PRN IV FOR UFH LEVEL 0.2 - 0.29 Last administered on 02/14/17 02:34; Start 02/13/17 at 11:45; Stop 02/14/17 at 13:53; Status DC Warfarin Sodium (Coumadin Per Pharmacy) 1 each PRN DAILY PRN MC PER PROTOCOL; Start 02/13/17 at 11:45; Status Cancel Info (Anti-Coagulation Monitoring By Pharmacy) 1 each PRN DAILY PRN MC SEE COMMENTS; Start 02/13/17 at 13:00; Stop 02/14/17 at 16:28; Status DC Calcium Chloride 1,000 mg STK-MED ONCE IV ; Start 02/12/17 at 10:00; Stop at 16:27; Status DC Epinephrine HCl (EPINEPHrine SYRINGE) 1 mg STK-MED ONCE .ROUTE ; Start 02/12/17 at 10:00; Stop 02/13/17 at 16:27; Status DC Dextrose (Dextrose 50%-Water Syringe) 25 gm STK-MED ONCE IV ; Start 02/12/17 at 10:00; Stop 02/13/17 at 16:27; Status DC Sodium Bicarbonate 50 meq STK-MED ONCE .ROUTE ; Start 02/12/17 at 10:00; Stop 02/13/17 at 16:27; Status DC Methylprednisolone Sodium Succinate (SOLU-Medrol 125MG VIAL) 100 mg TID IV Last administered on 02/18/17 20:52; Start 02/14/17 at 18:00 Norepinephrine Bitartrate 250 ml @ 0 mls/hr CONT PRN IV SEE I/O RECORD; Start 02/14/17 at 15:30; Status Cancel Famotidine (Pepcid) 20 mg DAILY IVP Last administered on 02/18/17 08:36; Start 02/15/17 at 09:00 Amino Acids/ Glycerin/ Electrolytes 1,000 ml @ 80 mls/hr [id number] IV Last administered on 02/15/17 09:32; Start 02/15/17 at 08:45; Stop 02/15/17 at 15:14; Status DC Albumin Human 100 ml @ 100 mls/hr 1X ONCE IV Last administered on 02/15/17 09 :30; Start 02/15/17 at 08:45; Stop 02/15/17 at 09:44; Status DC Furosemide (Lasix) 40 mg 1X ONCE IVP ; Start 02/15/17 at 08:45; Stop 02/15/17 at 09:18; Status DC Piperacillin Sod/ Tazobactam Sod 2.25 gm/Sodium Chloride 50 ml @ 100 mls/hr Q6HRS IV Last administered on 02/16/17 05:52; Start 02/15/17 at 12:00; Stop 03/25 at 09:17; Status DC Daptomycin 340 mg/ Sodium Chloride 50 ml @ 100 mls/hr ONCE ONCE IV Last administered on 02/15/17 11:15; Start 02/15/17 at 11:15; Stop 02/15/17 at 11:44; Status DC Dextrose/Sodium Chloride 1,000 ml @ 40 mls/hr Q24H IV Last administered on 20:52; Start 02/15/17 at 15:15 Lidocaine/Sodium Bicarbonate (Buffered Lidocaine 1%) 3 ml 1X ONCE IJ Last administered on 02/15/17 16:00; Start 02/15/17 at 15:45; Stop 02/15/17 at 15:46; Status DC Heparin Sodium/ Sodium Chloride 6,000 unit 1X ONCE IV ; Start 02/15/17 at 15:45 ; Stop 02/15/17 at 15:46; Status DC Sodium Chloride 1,000 ml @ 1,000 mls/hr Q1H PRN IV hypotension; Start 02/16/17 at 06:38; Stop 02/16/17 at 12:37; Status DC Info (PHARMACY MONITORING -- do not chart) 1 each PRN DAILY PRN MC SEE COMMENTS ; Start 02/16/17 at 06:45 Info (PHARMACY MONITORING -- do not chart) 1 each PRN DAILY PRN MC SEE COMMENTS ; Start 02/16/17 at 06:45; Stop 02/16/17 at 09:19; Status DC Info (PHARMACY MONITORING -- do not chart) 1 each PRN DAILY PRN MC SEE COMMENTS ; Start 02/16/17 at 06:45; Stop 02/16/17 at 09:19; Status DC Albumin Human 100 ml @ 100 mls/hr 1X ONCE IV Last administered on 02/16/17 07:18; Start 02/16/17 at 07:00; Stop 02/16/17 at 07:59; Status DC Piperacillin Sod/ Tazobactam Sod 2.25 gm/Sodium Chloride 50 ml @ 100 mls/hr Q8HRS IV Last administered on 02/18/17 05:55; Start 02/16/17 at 14:00; Stop at 07:22; Status DC Daptomycin 340 mg/ Sodium Chloride 50 ml @ 100 mls/hr QODAY IV Last administered on 02/17/17 12:22; Start 02/17/17 at 09:00; Stop 02/18/17 at 07:22 ; Status DC Sodium Chloride 1,000 ml @ 1,000 mls/hr Q1H PRN IV hypotension; Start 02/17/17 at 08:30; Stop 02/17/17 at 16:00; Status DC Albumin Human 200 ml @ 200 mls/hr 1X PRN PRN IV Hypotension; Start 02/17/17 at 08:30; Stop 02/17/17 at 16:00; Status DC Sodium Chloride 1,000 ml @ 400 mls/hr Q2H30M PRN IV PATENCY; Start 02/17/17 at 08:30; Stop 02/17/17 at 16:00; Status DC Info (PHARMACY MONITORING -- do not chart) 1 each PRN DAILY PRN MC SEE COMMENTS ; Start 02/17/17 at 08:30; Status UNV Info (PHARMACY MONITORING -- do not chart) 1 each PRN DAILY PRN MC SEE COMMENTS ; Start 02/17/17 at 08:30; Status UNV Heparin Sodium (Porcine) (Heparin Sq) 5,000 unit Q8HRS SQ Last administered on 02/19/17 05:32; Start 02/17/17 at 14:00 Bisacodyl (Dulcolax Supp) 10 mg PRN DAILY PRN MT CONSTIPATION; Start 02/17/17 at 15:00 Polyethylene Glycol (miraLAX PACKET) 17 gm PRN DAILY PRN FT CONSTIPATION; Start 02/17/17 at 15:00 Levetiracetam 500 mg/Sodium Chloride 100 ml @ 400 mls/hr Q12HR IV Last administered on 02/18/17 20:51; Start 02/17/17 at 21:00 Vancomycin HCl (Vanco Per Pharmacy) 1 each PRN DAILY PRN MC SEE COMMENTS Last administered on 02/18/17 14:13; Start 02/18/17 at 07:30 Vancomycin HCl 1.5 gm/Sodium Chloride 500 ml @ 250 mls/hr 1X ONCE IV Last administered on 02/18/17 14:43; Start 02/18/17 at 14:30; Stop 02/18/17 at 16:29 ; Status DC Vancomycin HCl 1 each 1X ONCE MC ; Start 02/20/17 at 05:00; Stop 02/20/17 at 05 :01 Sodium Chloride 1,000 ml @ 1,000 mls/hr Q1H PRN IV hypotension; Start 02/19/17 at 09:08; Stop 02/19/17 at 15:07 Albumin Human 200 ml @ 200 mls/hr 1X PRN PRN IV Hypotension; Start 02/19/17 at 09:15; Stop 02/19/17 at 15:14 Sodium Chloride 1,000 ml @ 400 mls/hr Q2H30M PRN IV PATENCY; Start 02/19/17 at 09:08; Stop 02/19/17 at 21:07 Info (PHARMACY MONITORING -- do not chart) 1 each PRN DAILY PRN MC SEE COMMENTS ; Start 02/19/17 at 09:15; Stop 02/19/17 at 09:17; Status DC Info (PHARMACY MONITORING -- do not chart) 1 each PRN DAILY PRN MC SEE COMMENTS ; Start 02/19/17 at 09:15 Active Scripts Active Reported Latuda (Lurasidone Hcl) 20 Mg Tablet 20 Mg PO AFTRNOON Remeron (Mirtazapine) 15 Mg Tablet 1 Tab PO QHS Oxybutynin Chloride Er (Oxybutynin Chloride) 10 Mg Tab.er.24 1 Tab PO DAILY Multivitamins (Multivitamin) 1 Each Tablet 1 Tab PO DAILY Latuda (Lurasidone Hcl) 20 Mg Tablet 10 Mg PO AFTRNOON Lorazepam 0.5 Mg Tablet 1 Tab PO QEVNG Duoneb 0.5-3(2.5) Mg/3 Ml (Albuterol/Ipratropium) 3 Ml Ampul.neb 3 Ml NEB BID Duoneb 0.5-3(2.5) Mg/3 Ml (Albuterol/Ipratropium) 3 Ml Ampul.neb 3 Ml NEB Q4H PRN Calcium Carbonate 500 Mg Tablet 1,000 Mg PO Q4HRS PRN Nicotine Gum (Nicotine Polacrilex) 4 Mg Gum 4 Mg BC Milk Of Magnesia (Magnesium Hydroxide) 400 Mg/5 Ml Oral.susp 400 Mg PO Q3DAYS PRN Milk Of Magnesia (Magnesium Hydroxide) 400 Mg/5 Ml Oral.susp 400 Mg PO Q3DAYS PRN Lorazepam 1 Mg Tablet 1 Tab PO Q12HR PRN Ibuprofen 400 Mg Tablet 200 Mg PO Q8HRS PRN Cough Drops (Eucalyptus Oil/Menthol) 7 Mg Lozenge 7 Mg MM Q4HRS PRN Tylenol (Acetaminophen) 325 Mg Tablet 650 Mg PO Q4HRS PRN Lovaza ([place]-3 Acid Ethyl Esters) 1 Gm Capsule 1 Cap PO QID Gabapentin 400 Mg Capsule 400 Mg PO QID Lorazepam 1 Mg Tablet 1 Tab PO BID Latuda (Lurasidone Hcl) 60 Mg Tablet 60 Mg PO BID Advair 100-50 Diskus (Fluticasone/Salmeterol) 1 Each Disk.w.dev 1 Puff IH BID Acetaminophen 325 Mg Capsule 650 Mg PO BID Vitamin D (Cholecalciferol (Vitamin D3)) 2,000 Unit Capsule 800 Unit PO DAILY Vitals/I & O Vital Sign - Last 24 Hours 02/18/17 02/18/17 02/18/17 02/18/17 10:00 10:45 11:00 12:00 Pulse 80 74 Resp 30 30 B/P (MAP) 145/67 (93) 146/76 (99) Pulse Ox 100 100 100 O2 Delivery Ventilator Ventilator Ventilator Mechanical Ventilator 02/18/17 02/18/17 02/18/17 02/18/17 12:00 12:54 13:00 14:00 Temp 99.2 99.2 Pulse 78 76 68 Resp 30 30 30 B/P (MAP) 147/79 (101) 147/78 (101) 134/68 (90) Pulse Ox 100 100 100 100 O2 Delivery Ventilator Ventilator Ventilator Ventilator 02/18/17 02/18/17 02/18/17 02/18/17 15:00 15:00 16:00 16:00 Temp 98.2 98.2 Pulse 74 70 Resp 30 30 B/P (MAP) 152/82 (105) 155/78 (103) Pulse Ox 100 100 100 O2 Delivery Ventilator Ventilator Ventilator Mechanical Ventilator 02/18/17 02/18/17 02/18/17 02/18/17 16:42 17:00 18:20 19:00 Pulse 64 75 76 Resp 30 30 30 B/P (MAP) 153/79 (103) 155/72 (99) 153/73 (99) Pulse Ox 100 100 100 100 O2 Delivery Ventilator Ventilator Ventilator Ventilator 02/18/17 02/18/17 02/18/17 02/18/17 19:29 20:00 20:00 21:00 Temp 98.9 98.9 Pulse 79 80 Resp 30 30 B/P (MAP) 146/72 (96) 153/77 (102) Pulse Ox 100 100 100 O2 Delivery Ventilator Mechanical Ventilator Ventilator Ventilator 02/18/17 02/18/17 02/18/17 02/18/17 21:27 22:00 23:00 23:45 Pulse 83 82 Resp 30 30 B/P (MAP) 152/76 (101) 159/79 (105) Pulse Ox 100 100 100 100 O2 Delivery Ventilator Ventilator Ventilator Ventilator 02/18/17 02/18/17 02/19/17 02/19/17 23:59 23:59 01:00 02:00 Temp 99.0 99.0 Pulse 82 78 84 Resp 30 30 30 B/P (MAP) 154/82 (106) 151/83 (105) 153/80 (104) Pulse Ox 100 100 100 O2 Delivery Ventilator Mechanical Ventilator Ventilator Ventilator 02/19/17 02/19/17 02/19/17 02/19/17 02:20 03:00 04:00 04:00 Temp 98.9 98.9 Pulse 85 91 Resp 30 30 B/P (MAP) 155/82 (106) 154/82 (106) Pulse Ox 100 100 100 O2 Delivery Ventilator Ventilator Mechanical Ventilator Ventilator 02/19/17 02/19/17 02/19/17 02/19/17 05:00 05:40 06:00 07:00 Pulse 83 78 92 Resp 30 30 30 B/P (MAP) 140/79 (99) 148/83 (104) 145/80 (101) Pulse Ox 100 100 100 100 O2 Delivery Ventilator Ventilator Ventilator Ventilator 02/19/17 02/19/17 02/19/17 07:19 08:00 09:00 Temp 98.6 98.6 Pulse 97 100 Resp 30 30 B/P (MAP) 138/79 (98) 163/78 (106) Pulse Ox 100 100 100 O2 Delivery Ventilator Ventilator Ventilator Intake and Output 02/19/17 02/19/17 02/20/17 15:00 23:00 07:00 Intake Total 0 ml Balance 0 ml Problem List Problems Medical Problems: (1) Cardiac arrest Status: Acute (2) Elevated troponin Status: Acute (3) Hyperkalemia Status: Acute (4) Hypoglycemia Status: Acute (5) Hyponatremia Status: Acute Assessment Anoxic encephalopathy, irreversible. Plan of Care: Continue current Tx, Mgmt Plan of Care Note If/when able, would stop life support and AND. We will sign off. Call if needed. PADDY [email or web address] MD Feb 19, 2017 09:31
--- NOTE | 2017-02-19 09:49 | PDOC ---
PROGRESS NOTES Chief Complaint Chief Complaint cardiac arrest, asystole, unknown down time, s/p hypothermia Anoxic encephalopathy, off sedation, no response Normal corrected calcium OLIGURIC RENAL FAILURE noW NEW HD [facility] resident HX schiz by documentation Sepsis with organ failure, needing pressor THrombocytopenia ANemia, normocytic Hyponatremia Acute precipitous drop hgb History of Present Illness History of Present Illness HGb 7 today from 8 Off levo Creat 5 from 3 today Still no UO NO response, off sedation for days EThics committee now on board PLAN: HD per renal TRAnsfuse 1 pRBC today while HD WIll sign papers to facilitate goals of care appropriate for this patient Dw TROUBLE TRACER and pat Vitals Vitals Vital Signs Date Time Temp Pulse Resp B/P (MAP) Pulse Ox O2 Delivery O2 Flow Rate FiO2 02/19/17 09:00 100 30 163/78 (106) 100 Ventilator 02/19/17 08:00 98.6 98.6 Physical Exam General: Other (SEDATE ON VENT) Heart: Regular rate, Normal S1, Normal S2, No murmurs, Gallops Lungs: Clear Abdomen: Normal bowel sounds, Soft, No tenderness, No hepatosplenomegaly, No masses Extremities: No clubbing, No cyanosis, No edema, Normal pulses, No tenderness/ swelling Skin: No breakdown, No significant lesion Labs LABS Laboratory Tests Test 02/18/17 18:03 02/19/17 00:02 02/19/17 06:05 02/19/17 06:06 Glucose (Fingerstick) 142 mg/dL (70-99) 147 mg/dL (70-99) 126 mg/dL (70-99) White Blood Count 29.4 x10^3/uL (4.0-11.0) Red Blood Count 2.10 x10^6/uL (3.50-5.40) Hemoglobin 7.4 g/dL (12.0-15.5) Hematocrit 20.6 % (36.0-47.0) Mean Corpuscular Volume 98 fL (79-100) Mean Corpuscular Hemoglobin 35 pg (25-35) Mean Corpuscular Hemoglobin Concent 36 g/dL (31-37) Red Cell Distribution Width 14.4 % (11.5-14.5) Platelet Count 159 x10^3/uL (140-400) Neutrophils (%) (Auto) 96 % (31-73) Lymphocytes (%) (Auto) 2 % (24-48) Monocytes (%) (Auto) 2 % (0-9) Eosinophils (%) (Auto) 0 % (0-3) Basophils (%) (Auto) 0 % (0-3) Neutrophils # (Auto) 28.2 x10^3uL (1.8-7.7) Lymphocytes # (Auto) 0.6 x10^3/uL (1.0-4.8) Monocytes # (Auto) 0.5 x10^3/uL (0.0-1.1) Eosinophils # (Auto) 0.0 x10^3/uL (0.0-0.7) Basophils # (Auto) 0.0 x10^3/uL (0.0-0.2) Sodium Level 134 mmol/L (136-145) Potassium Level 3.8 mmol/L (3.5-5.1) Chloride Level 96 mmol/L (98-107) Carbon Dioxide Level 24 mmol/L (21-32) Anion Gap 14 (6-14) Blood Urea Nitrogen 88 mg/dL (7-20) Creatinine 5.1 mg/dL (0.6-1.0) Estimated GFR (Cockcroft-Gault) 10.7 Glucose Level 130 mg/dL (70-99) Calcium Level 8.1 mg/dL (8.5-10.1) Phosphorus Level 4.2 mg/dL (2.6-4.7) Albumin 1.9 g/dL (3.4-5.0) Test 02/19/17 07:25 O2 Saturation 98 % (92-99) Arterial Blood pH 7.38 (7.35-7.45) Arterial Blood pCO2 at Patient Temp 40 mmHg (35-46) Arterial Blood pO2 at Patient Temp 114 mmHg (75-108) Arterial Blood HCO3 23 mmol/L (21-28) Arterial Blood Base Excess -2 mmol/L (-3-3) FiO2 40 Review of Systems Review of Systems no response Assessment and Plan Assessmemt and Plan Problems Medical Problems: (1) Cardiac arrest Status: Acute (2) Elevated troponin Status: Acute (3) Hyperkalemia Status: Acute (4) Hypoglycemia Status: Acute (5) Hyponatremia Status: Acute Problems: Comment Review of Relevant I have reviewed the following items reji (where applicable) has been applied. Labs Laboratory Tests Test 02/17/17 18:15 02/18/17 00:04 02/18/17 00:05 02/18/17 05:53 Sodium Level 135 mmol/L (136-145) 134 mmol/L (136-145) Glucose (Fingerstick) 141 mg/dL (70-99) 146 mg/dL (70-99) Test 02/18/17 06:01 02/18/17 09:15 02/18/17 18:03 02/19/17 00:02 White Blood Count 22.3 x10^3/uL (4.0-11.0) Red Blood Count 2.45 x10^6/uL (3.50-5.40) Hemoglobin 8.1 g/dL (12.0-15.5) Hematocrit 23.8 % (36.0-47.0) Mean Corpuscular Volume 97 fL (79-100) Mean Corpuscular Hemoglobin 33 pg (25-35) Mean Corpuscular Hemoglobin Concent 34 g/dL (31-37) Red Cell Distribution Width 14.4 % (11.5-14.5) Platelet Count 149 x10^3/uL (140-400) Neutrophils (%) (Auto) 96 % (31-73) Lymphocytes (%) (Auto) 3 % (24-48) Monocytes (%) (Auto) 1 % (0-9) Eosinophils (%) (Auto) 0 % (0-3) Basophils (%) (Auto) 0 % (0-3) Neutrophils # (Auto) 21.3 x10^3uL (1.8-7.7) Lymphocytes # (Auto) 0.6 x10^3/uL (1.0-4.8) Monocytes # (Auto) 0.3 x10^3/uL (0.0-1.1) Eosinophils # (Auto) 0.0 x10^3/uL (0.0-0.7) Basophils # (Auto) 0.0 x10^3/uL (0.0-0.2) Segmented Neutrophils % 60 % (35-66) Band Neutrophils % 30 % (0-9) Lymphocytes % 3 % (24-48) Monocytes % 1 % (0-10) Metamyelocytes % 2 % (0-0) Myelocytes % 1 % (0-0) Promyelocytes % 3 % (0-0) Nucleated Red Blood Cells 4 Toxic Granulation Slight Platelet Estimate Adequate (ADEQUATE) Polychromasia Slight Prothrombin Time 16.9 SEC (11.7-14.0) Prothromb Time International Ratio 1.5 (0.8-1.1) Sodium Level 134 mmol/L (136-145) Potassium Level 3.7 mmol/L (3.5-5.1) Chloride Level 97 mmol/L (98-107) Carbon Dioxide Level 26 mmol/L (21-32) Anion Gap 11 (6-14) Blood Urea Nitrogen 59 mg/dL (7-20) Creatinine 3.8 mg/dL (0.6-1.0) Estimated GFR (Cockcroft-Gault) 15.0 Glucose Level 149 mg/dL (70-99) Calcium Level 8.5 mg/dL (8.5-10.1) Phosphorus Level 3.7 mg/dL (2.6-4.7) Magnesium Level 2.3 mg/dL (1.8-2.4) Albumin 2.2 g/dL (3.4-5.0) O2 Saturation 98 % (92-99) Arterial Blood pH 7.38 (7.35-7.45) Arterial Blood pCO2 at Patient Temp 40 mmHg (35-46) Arterial Blood pO2 at Patient Temp 137 mmHg (75-108) Arterial Blood HCO3 23 mmol/L (21-28) Arterial Blood Base Excess -2 mmol/L (-3-3) FiO2 40 Glucose (Fingerstick) 142 mg/dL (70-99) 147 mg/dL (70-99) Test 02/19/17 06:05 02/19/17 06:06 02/19/17 07:25 White Blood Count 29.4 x10^3/uL (4.0-11.0) Red Blood Count 2.10 x10^6/uL (3.50-5.40) Hemoglobin 7.4 g/dL (12.0-15.5) Hematocrit 20.6 % (36.0-47.0) Mean Corpuscular Volume 98 fL (79-100) Mean Corpuscular Hemoglobin 35 pg (25-35) Mean Corpuscular Hemoglobin Concent 36 g/dL (31-37) Red Cell Distribution Width 14.4 % (11.5-14.5) Platelet Count 159 x10^3/uL (140-400) Neutrophils (%) (Auto) 96 % (31-73) Lymphocytes (%) (Auto) 2 % (24-48) Monocytes (%) (Auto) 2 % (0-9) Eosinophils (%) (Auto) 0 % (0-3) Basophils (%) (Auto) 0 % (0-3) Neutrophils # (Auto) 28.2 x10^3uL (1.8-7.7) Lymphocytes # (Auto) 0.6 x10^3/uL (1.0-4.8) Monocytes # (Auto) 0.5 x10^3/uL (0.0-1.1) Eosinophils # (Auto) 0.0 x10^3/uL (0.0-0.7) Basophils # (Auto) 0.0 x10^3/uL (0.0-0.2) Sodium Level 134 mmol/L (136-145) Potassium Level 3.8 mmol/L (3.5-5.1) Chloride Level 96 mmol/L (98-107) Carbon Dioxide Level 24 mmol/L (21-32) Anion Gap 14 (6-14) Blood Urea Nitrogen 88 mg/dL (7-20) Creatinine 5.1 mg/dL (0.6-1.0) Estimated GFR (Cockcroft-Gault) 10.7 Glucose Level 130 mg/dL (70-99) Calcium Level 8.1 mg/dL (8.5-10.1) Phosphorus Level 4.2 mg/dL (2.6-4.7) Albumin 1.9 g/dL (3.4-5.0) Glucose (Fingerstick) 126 mg/dL (70-99) O2 Saturation 98 % (92-99) Arterial Blood pH 7.38 (7.35-7.45) Arterial Blood pCO2 at Patient Temp 40 mmHg (35-46) Arterial Blood pO2 at Patient Temp 114 mmHg (75-108) Arterial Blood HCO3 23 mmol/L (21-28) Arterial Blood Base Excess -2 mmol/L (-3-3) FiO2 40 Laboratory Tests Test 02/18/17 18:03 02/19/17 00:02 02/19/17 06:05 02/19/17 06:06 Glucose (Fingerstick) 142 mg/dL (70-99) 147 mg/dL (70-99) 126 mg/dL (70-99) White Blood Count 29.4 x10^3/uL (4.0-11.0) Red Blood Count 2.10 x10^6/uL (3.50-5.40) Hemoglobin 7.4 g/dL (12.0-15.5) Hematocrit 20.6 % (36.0-47.0) Mean Corpuscular Volume 98 fL (79-100) Mean Corpuscular Hemoglobin 35 pg (25-35) Mean Corpuscular Hemoglobin Concent 36 g/dL (31-37) Red Cell Distribution Width 14.4 % (11.5-14.5) Platelet Count 159 x10^3/uL (140-400) Neutrophils (%) (Auto) 96 % (31-73) Lymphocytes (%) (Auto) 2 % (24-48) Monocytes (%) (Auto) 2 % (0-9) Eosinophils (%) (Auto) 0 % (0-3) Basophils (%) (Auto) 0 % (0-3) Neutrophils # (Auto) 28.2 x10^3uL (1.8-7.7) Lymphocytes # (Auto) 0.6 x10^3/uL (1.0-4.8) Monocytes # (Auto) 0.5 x10^3/uL (0.0-1.1) Eosinophils # (Auto) 0.0 x10^3/uL (0.0-0.7) Basophils # (Auto) 0.0 x10^3/uL (0.0-0.2) Sodium Level 134 mmol/L (136-145) Potassium Level 3.8 mmol/L (3.5-5.1) Chloride Level 96 mmol/L (98-107) Carbon Dioxide Level 24 mmol/L (21-32) Anion Gap 14 (6-14) Blood Urea Nitrogen 88 mg/dL (7-20) Creatinine 5.1 mg/dL (0.6-1.0) Estimated GFR (Cockcroft-Gault) 10.7 Glucose Level 130 mg/dL (70-99) Calcium Level 8.1 mg/dL (8.5-10.1) Phosphorus Level 4.2 mg/dL (2.6-4.7) Albumin 1.9 g/dL (3.4-5.0) Test 02/19/17 07:25 O2 Saturation 98 % (92-99) Arterial Blood pH 7.38 (7.35-7.45) Arterial Blood pCO2 at Patient Temp 40 mmHg (35-46) Arterial Blood pO2 at Patient Temp 114 mmHg (75-108) Arterial Blood HCO3 23 mmol/L (21-28) Arterial Blood Base Excess -2 mmol/L (-3-3) FiO2 40 Microbiology 02/15/17 Blood Culture - Preliminary, Resulted NO GROWTH AFTER 3 DAYS 02/12/17 Urine Culture - Final, Complete 02/12/17 Urine Culture Result 1 (ELIZABETH) - Final, Complete Medications Current Medications Calcium Chloride 1,000 mg 1X ONCE IV Last administered on 02/12/17 15:35; Start 02/12/17 at 16:00; Stop 02/12/17 at 16:35; Status DC Dextrose (Dextrose 50%-Water Syringe) 25 gm 1X ONCE IV Last administered on 15:33; Start 02/12/17 at 16:00; Stop 02/12/17 at 16:35; Status DC Sodium Bicarbonate 50 meq 1X ONCE IV Last administered on 02/12/17 15:35; Start 02/12/17 at 16:00; Stop 02/12/17 at 16:35; Status DC Furosemide (Lasix) 40 mg 1X ONCE IVP Last administered on 02/12/17 16:42; Start 02/12/17 at 16:30; Stop 02/12/17 at 16:35; Status DC Sodium Chloride 1,000 ml @ 1,000 mls/hr Q1H IV Last administered on 02/12/17 15:50; Start 02/12/17 at 16:57; Stop 02/13/17 at 07:23; Status DC Fentanyl Citrate (Fentanyl 2ml Vial) 25 mcg PRN Q30MIN PRN IV SED; Start at 17:00 Lorazepam (Ativan) 1 mg PRN Q30MIN PRN IV SEDATION; Start 02/12/17 at 17:00 Fentanyl Citrate 30 ml @ 2.5 mls/hr CONT PRN PRN IV IVF Last administered on 03:27; Start 02/12/17 at 17:00 Propofol 100 ml @ 0 mls/hr CONT PRN IV SEE I/O RECORD; Start 02/12/17 at 17:00 Vecuronium [place] (Norcuron Bolus) DOSE AT 0.1 mg/kg PRN Q30MIN PRN IV SHIVERING Last administered on 02/12/17 19:46; Start 02/12/17 at 17:00; Stop 02/13 at 11:01; Status DC Meperidine HCl (Demerol) 12.5 mg PRN Q30MIN PRN IV SHIVERING; Start 02/12/17 at 17:00 Multi-Ingred Cream/Lotion/Oil/ Oint (Artificial Tears Eye Oint) 1 silvestre PRN Q6HRS PRN OU 0.5 INCH FOR DRY EYE; Start 02/12/17 at 17:00 Famotidine (Pepcid) 20 mg BID IVP Last administered on 02/14/17 10:47; Start at 09:00; Stop 02/14/17 at 16:23; Status DC Aspirin (Aspirin) 300 mg DAILY CA Last administered on 02/17/17 15:11; Start 02/13/17 at 09:00 Sodium Chloride (Normal Saline Flush) 3 ml QSHIFT PRN IV AFTER MEDS AND BLOOD DRAWS; Start 02/12/17 at 17:00 Acetaminophen (Tylenol) 650 mg Q6HRS NG Last administered on 02/13/17 05:51; Start 02/12/17 at 18:00; Stop 02/13/17 at 17:59; Status DC Acetaminophen (Acetaminophen Supp) 650 mg PRN Q6HRS PRN CA MILD PAIN / TEMP; Start 02/13/17 at 17:00 Acetaminophen (Tylenol) 650 mg PRN Q6HRS PRN NG MILD PAIN / TEMP; Start at 17:00 Info 1 ea DAILY PRN MC PER PROTOCOL; Start 02/14/17 at 17:00 Sodium Chloride 500 ml @ 500 mls/hr 1X ONCE IV Last administered on 02/12/17 16:30; Start 02/12/17 at 17:15; Stop 02/12/17 at 18:14; Status DC Sodium Chloride 500 ml @ 500 mls/hr 1X ONCE IV Last administered on 02/12/17 16:50; Start 02/12/17 at 17:15; Stop 02/12/17 at 18:14; Status DC Sodium Chloride 1,000 ml @ 100 mls/hr Q10H IV Last administered on 02/13/17 06 :36; Start 02/12/17 at 19:00; Stop 02/13/17 at 10:51; Status DC Famotidine (Pepcid) 20 mg 1X ONCE PO Last administered on 02/12/17 19:57; Start 02/12/17 at 17:30; Stop 02/12/17 at 17:34; Status DC Methylprednisolone Sodium Succinate (SOLU-Medrol 40MG VIAL) 100 mg TID IV Last administered on 02/14/17 11:01; Start 02/12/17 at 18:00; Stop 02/14/17 at 12:00; Status DC Sodium Chloride 1,000 ml @ 1,000 mls/hr 1X ONCE IV Last administered on 19:31; Start 02/12/17 at 18:15; Stop 02/12/17 at 19:14; Status DC Piperacillin Sod/ Tazobactam Sod (Zosyn Per Pharmacy) 1 each PRN DAILY PRN MC SEE COMMENTS; Start 02/12/17 at 19:15; Stop 02/18/17 at 07:22; Status DC Vancomycin HCl (Vanco Per Pharmacy) 1 each PRN DAILY PRN MC SEE COMMENTS Last administered on 02/13/17 16:50; Start 02/12/17 at 19:15; Stop 02/14/17 at 07:57; Status DC Piperacillin Sod/ Tazobactam Sod 3.375 gm/Sodium Chloride 50 ml @ 100 mls/hr Q6HRS IV Last administered on 02/15/17 05:58; Start 02/12/17 at 19:30; Stop 02/15 at 09:37; Status DC Vancomycin HCl 1 gm/Sodium Chloride 250 ml @ 250 mls/hr 1X ONCE IV Last administered on 02/12/17 20:00; Start 02/12/17 at 19:30; Stop 02/12/17 at 20:29; Status DC Sodium Bicarbonate 50 meq 1X ONCE IV Last administered on 02/12/17 19:59; Start 02/12/17 at 19:30; Stop 02/12/17 at 19:31; Status DC Norepinephrine Bitartrate 250 ml @ 0 mls/hr CONT PRN IV SEE I/O RECORD Last administered on 02/16/17 07:18; Start 02/12/17 at 19:30 Norepinephrine Bitartrate 250 ml @ As Directed STK-MED ONCE IV ; Start 02/12/17 at 19:25; Stop 02/12/17 at 19:26; Status DC Vancomycin HCl 750 mg/Sodium Chloride 250 ml @ 250 mls/hr Q24H IV Last administered on 02/13/17 20:34; Start 02/13/17 at 20:00; Stop 02/14/17 at 07:57; Status DC Vancomycin HCl 1 each 1X ONCE MC ; Start 02/14/17 at 19:30; Stop 02/14/17 at 19: 31; Status Cancel Sodium Chloride 1,000 ml @ 1,000 mls/hr 1X ONCE IV Last administered on 05:05; Start 02/13/17 at 04:45; Stop 02/13/17 at 05:44; Status DC Sodium Chloride 1,000 ml @ 1,000 mls/hr 1X ONCE IV Last administered on 05:35; Start 02/13/17 at 05:30; Stop 02/13/17 at 06:29; Status DC Magnesium Sulfate/ Dextrose 50 ml @ 25 mls/hr PRN DAILY PRN IV for Mag < 1.7 on am labs; Start 02/13/17 at 10:45 Dextrose/Sodium Chloride 1,000 ml @ 75 mls/hr [id number] IV Last administered on 02/15/17 01:52; Start 02/13/17 at 11:00; Stop 02/15/17 at 08:52; Status DC Vecuronium [place] (Norcuron Bolus) 5 mg PRN Q30MIN PRN IV SHIVERING; Start 02/13/17 at 11:15 Lidocaine/Sodium Bicarbonate (Buffered Lidocaine 1%) 3 ml 1X ONCE IJ Last administered on 02/13/17 11:40; Start 02/13/17 at 11:15; Stop 02/13/17 at 11:26; Status DC Heparin Sodium/ Sodium Chloride 60 unit 1X ONCE IV Last administered on 11:40; Start 02/13/17 at 11:15; Stop 02/13/17 at 11:26; Status DC Lidocaine/Sodium Bicarbonate (Buffered Lidocaine 1%) 20 ml STK-MED ONCE IJ ; Start 02/13/17 at 11:22; Stop 02/13/17 at 11:29; Status DC Heparin Sodium (Porcine) (Heparin Sodium) 2,075 unit 1X ONCE IV Last administered on 02/13/17 12:45; Start 02/13/17 at 11:45; Stop 02/13/17 at 11:56; Status DC Heparin Sodium/ Dextrose 500 ml @ 16.5 mls/hr CONT PRN IV SEE I/O RECORD Last administered on 02/13/17 12:47; Start 02/13/17 at 11:45; Stop 02/14/17 at 13:53; Status DC Heparin Sodium (Porcine) (Heparin Sodium) 1,550 unit PRN Q6HRS PRN IV FOR UFH LEVEL LESS THAN 0.2 Last administered on 02/13/17 20:22; Start 02/13/17 at 11:45 ; Stop 02/14/17 at 13:53; Status DC Heparin Sodium (Porcine) (Heparin Sodium) 800 unit PRN Q6HRS PRN IV FOR UFH LEVEL 0.2 - 0.29 Last administered on 02/14/17 02:34; Start 02/13/17 at 11:45; Stop 02/14/17 at 13:53; Status DC Warfarin Sodium (Coumadin Per Pharmacy) 1 each PRN DAILY PRN MC PER PROTOCOL; Start 02/13/17 at 11:45; Status Cancel Info (Anti-Coagulation Monitoring By Pharmacy) 1 each PRN DAILY PRN MC SEE COMMENTS; Start 02/13/17 at 13:00; Stop 02/14/17 at 16:28; Status DC Calcium Chloride 1,000 mg STK-MED ONCE IV ; Start 02/12/17 at 10:00; Stop at 16:27; Status DC Epinephrine HCl (EPINEPHrine SYRINGE) 1 mg STK-MED ONCE .ROUTE ; Start 02/12/17 at 10:00; Stop 02/13/17 at 16:27; Status DC Dextrose (Dextrose 50%-Water Syringe) 25 gm STK-MED ONCE IV ; Start 02/12/17 at 10:00; Stop 02/13/17 at 16:27; Status DC Sodium Bicarbonate 50 meq STK-MED ONCE .ROUTE ; Start 02/12/17 at 10:00; Stop 02/13/17 at 16:27; Status DC Methylprednisolone Sodium Succinate (SOLU-Medrol 125MG VIAL) 100 mg TID IV Last administered on 02/18/17 20:52; Start 02/14/17 at 18:00 Norepinephrine Bitartrate 250 ml @ 0 mls/hr CONT PRN IV SEE I/O RECORD; Start 02/14/17 at 15:30; Status Cancel Famotidine (Pepcid) 20 mg DAILY IVP Last administered on 02/18/17 08:36; Start 02/15/17 at 09:00 Amino Acids/ Glycerin/ Electrolytes 1,000 ml @ 80 mls/hr [id number] IV Last administered on 02/15/17 09:32; Start 02/15/17 at 08:45; Stop 02/15/17 at 15:14; Status DC Albumin Human 100 ml @ 100 mls/hr 1X ONCE IV Last administered on 02/15/17 09 :30; Start 02/15/17 at 08:45; Stop 02/15/17 at 09:44; Status DC Furosemide (Lasix) 40 mg 1X ONCE IVP ; Start 02/15/17 at 08:45; Stop 02/15/17 at 09:18; Status DC Piperacillin Sod/ Tazobactam Sod 2.25 gm/Sodium Chloride 50 ml @ 100 mls/hr Q6HRS IV Last administered on 02/16/17 05:52; Start 02/15/17 at 12:00; Stop 03/25 at 09:17; Status DC Daptomycin 340 mg/ Sodium Chloride 50 ml @ 100 mls/hr ONCE ONCE IV Last administered on 02/15/17 11:15; Start 02/15/17 at 11:15; Stop 02/15/17 at 11:44; Status DC Dextrose/Sodium Chloride 1,000 ml @ 40 mls/hr Q24H IV Last administered on 20:52; Start 02/15/17 at 15:15 Lidocaine/Sodium Bicarbonate (Buffered Lidocaine 1%) 3 ml 1X ONCE IJ Last administered on 02/15/17 16:00; Start 02/15/17 at 15:45; Stop 02/15/17 at 15:46; Status DC Heparin Sodium/ Sodium Chloride 6,000 unit 1X ONCE IV ; Start 02/15/17 at 15:45 ; Stop 02/15/17 at 15:46; Status DC Sodium Chloride 1,000 ml @ 1,000 mls/hr Q1H PRN IV hypotension; Start 02/16/17 at 06:38; Stop 02/16/17 at 12:37; Status DC Info (PHARMACY MONITORING -- do not chart) 1 each PRN DAILY PRN MC SEE COMMENTS ; Start 02/16/17 at 06:45 Info (PHARMACY MONITORING -- do not chart) 1 each PRN DAILY PRN MC SEE COMMENTS ; Start 02/16/17 at 06:45; Stop 02/16/17 at 09:19; Status DC Info (PHARMACY MONITORING -- do not chart) 1 each PRN DAILY PRN MC SEE COMMENTS ; Start 02/16/17 at 06:45; Stop 02/16/17 at 09:19; Status DC Albumin Human 100 ml @ 100 mls/hr 1X ONCE IV Last administered on 02/16/17 07:18; Start 02/16/17 at 07:00; Stop 02/16/17 at 07:59; Status DC Piperacillin Sod/ Tazobactam Sod 2.25 gm/Sodium Chloride 50 ml @ 100 mls/hr Q8HRS IV Last administered on 02/18/17 05:55; Start 02/16/17 at 14:00; Stop at 07:22; Status DC Daptomycin 340 mg/ Sodium Chloride 50 ml @ 100 mls/hr QODAY IV Last administered on 02/17/17 12:22; Start 02/17/17 at 09:00; Stop 02/18/17 at 07:22 ; Status DC Sodium Chloride 1,000 ml @ 1,000 mls/hr Q1H PRN IV hypotension; Start 02/17/17 at 08:30; Stop 02/17/17 at 16:00; Status DC Albumin Human 200 ml @ 200 mls/hr 1X PRN PRN IV Hypotension; Start 02/17/17 at 08:30; Stop 02/17/17 at 16:00; Status DC Sodium Chloride 1,000 ml @ 400 mls/hr Q2H30M PRN IV PATENCY; Start 02/17/17 at 08:30; Stop 02/17/17 at 16:00; Status DC Info (PHARMACY MONITORING -- do not chart) 1 each PRN DAILY PRN MC SEE COMMENTS ; Start 02/17/17 at 08:30; Status UNV Info (PHARMACY MONITORING -- do not chart) 1 each PRN DAILY PRN MC SEE COMMENTS ; Start 02/17/17 at 08:30; Status UNV Heparin Sodium (Porcine) (Heparin Sq) 5,000 unit Q8HRS SQ Last administered on 02/19/17 05:32; Start 02/17/17 at 14:00 Bisacodyl (Dulcolax Supp) 10 mg PRN DAILY PRN CA CONSTIPATION; Start 02/17/17 at 15:00 Polyethylene Glycol (miraLAX PACKET) 17 gm PRN DAILY PRN FT CONSTIPATION; Start 02/17/17 at 15:00 Levetiracetam 500 mg/Sodium Chloride 100 ml @ 400 mls/hr Q12HR IV Last administered on 02/18/17 20:51; Start 02/17/17 at 21:00 Vancomycin HCl (Vanco Per Pharmacy) 1 each PRN DAILY PRN MC SEE COMMENTS Last administered on 02/19/17 09:30; Start 02/18/17 at 07:30 Vancomycin HCl 1.5 gm/Sodium Chloride 500 ml @ 250 mls/hr 1X ONCE IV Last administered on 02/18/17 14:43; Start 02/18/17 at 14:30; Stop 02/18/17 at 16:29 ; Status DC Vancomycin HCl 1 each 1X ONCE MC ; Start 02/20/17 at 05:00; Stop 02/20/17 at 05 :01 Sodium Chloride 1,000 ml @ 1,000 mls/hr Q1H PRN IV hypotension; Start 02/19/17 at 09:08; Stop 02/19/17 at 15:07 Albumin Human 200 ml @ 200 mls/hr 1X PRN PRN IV Hypotension; Start 02/19/17 at 09:15; Stop 02/19/17 at 15:14 Sodium Chloride 1,000 ml @ 400 mls/hr Q2H30M PRN IV PATENCY; Start 02/19/17 at 09:08; Stop 02/19/17 at 21:07 Info (PHARMACY MONITORING -- do not chart) 1 each PRN DAILY PRN MC SEE COMMENTS ; Start 02/19/17 at 09:15; Stop 02/19/17 at 09:17; Status DC Info (PHARMACY MONITORING -- do not chart) 1 each PRN DAILY PRN MC SEE COMMENTS ; Start 02/19/17 at 09:15 Active Scripts Active Reported Latuda (Lurasidone Hcl) 20 Mg Tablet 20 Mg PO AFTRNOON Remeron (Mirtazapine) 15 Mg Tablet 1 Tab PO QHS Oxybutynin Chloride Er (Oxybutynin Chloride) 10 Mg Tab.er.24 1 Tab PO DAILY Multivitamins (Multivitamin) 1 Each Tablet 1 Tab PO DAILY Latuda (Lurasidone Hcl) 20 Mg Tablet 10 Mg PO AFTRNOON Lorazepam 0.5 Mg Tablet 1 Tab PO QEVNG Duoneb 0.5-3(2.5) Mg/3 Ml (Albuterol/Ipratropium) 3 Ml Ampul.neb 3 Ml NEB BID Duoneb 0.5-3(2.5) Mg/3 Ml (Albuterol/Ipratropium) 3 Ml Ampul.neb 3 Ml NEB Q4H PRN Calcium Carbonate 500 Mg Tablet 1,000 Mg PO Q4HRS PRN Nicotine Gum (Nicotine Polacrilex) 4 Mg Gum 4 Mg BC Milk Of Magnesia (Magnesium Hydroxide) 400 Mg/5 Ml Oral.susp 400 Mg PO Q3DAYS PRN Milk Of Magnesia (Magnesium Hydroxide) 400 Mg/5 Ml Oral.susp 400 Mg PO Q3DAYS PRN Lorazepam 1 Mg Tablet 1 Tab PO Q12HR PRN Ibuprofen 400 Mg Tablet 200 Mg PO Q8HRS PRN Cough Drops (Eucalyptus Oil/Menthol) 7 Mg Lozenge 7 Mg MM Q4HRS PRN Tylenol (Acetaminophen) 325 Mg Tablet 650 Mg PO Q4HRS PRN Lovaza ([place]-3 Acid Ethyl Esters) 1 Gm Capsule 1 Cap PO QID Gabapentin 400 Mg Capsule 400 Mg PO QID Lorazepam 1 Mg Tablet 1 Tab PO BID Latuda (Lurasidone Hcl) 60 Mg Tablet 60 Mg PO BID Advair 100-50 Diskus (Fluticasone/Salmeterol) 1 Each Disk.w.dev 1 Puff IH BID Acetaminophen 325 Mg Capsule 650 Mg PO BID Vitamin D (Cholecalciferol (Vitamin D3)) 2,000 Unit Capsule 800 Unit PO DAILY Vitals/I & O Vital Sign - Last 24 Hours 02/18/17 02/18/17 02/18/17 02/18/17 10:00 10:45 11:00 12:00 Pulse 80 74 Resp 30 30 B/P (MAP) 145/67 (93) 146/76 (99) Pulse Ox 100 100 100 O2 Delivery Ventilator Ventilator Ventilator Mechanical Ventilator 02/18/17 02/18/17 02/18/17 02/18/17 12:00 12:54 13:00 14:00 Temp 99.2 99.2 Pulse 78 76 68 Resp 30 30 30 B/P (MAP) 147/79 (101) 147/78 (101) 134/68 (90) Pulse Ox 100 100 100 100 O2 Delivery Ventilator Ventilator Ventilator Ventilator 02/18/17 02/18/17 02/18/17 02/18/17 15:00 15:00 16:00 16:00 Temp 98.2 98.2 Pulse 74 70 Resp 30 30 B/P (MAP) 152/82 (105) 155/78 (103) Pulse Ox 100 100 100 O2 Delivery Ventilator Ventilator Ventilator Mechanical Ventilator 02/18/17 02/18/17 02/18/17 02/18/17 16:42 17:00 18:20 19:00 Pulse 64 75 76 Resp 30 30 30 B/P (MAP) 153/79 (103) 155/72 (99) 153/73 (99) Pulse Ox 100 100 100 100 O2 Delivery Ventilator Ventilator Ventilator Ventilator 02/18/17 02/18/17 02/18/17 02/18/17 19:29 20:00 20:00 21:00 Temp 98.9 98.9 Pulse 79 80 Resp 30 30 B/P (MAP) 146/72 (96) 153/77 (102) Pulse Ox 100 100 100 O2 Delivery Ventilator Mechanical Ventilator Ventilator Ventilator 02/18/17 02/18/17 02/18/17 02/18/17 21:27 22:00 23:00 23:45 Pulse 83 82 Resp 30 30 B/P (MAP) 152/76 (101) 159/79 (105) Pulse Ox 100 100 100 100 O2 Delivery Ventilator Ventilator Ventilator Ventilator 02/18/17 02/18/17 02/19/17 02/19/17 23:59 23:59 01:00 02:00 Temp 99.0 99.0 Pulse 82 78 84 Resp 30 30 30 B/P (MAP) 154/82 (106) 151/83 (105) 153/80 (104) Pulse Ox 100 100 100 O2 Delivery Ventilator Mechanical Ventilator Ventilator Ventilator 02/19/17 02/19/17 02/19/17 02/19/17 02:20 03:00 04:00 04:00 Temp 98.9 98.9 Pulse 85 91 Resp 30 30 B/P (MAP) 155/82 (106) 154/82 (106) Pulse Ox 100 100 100 O2 Delivery Ventilator Ventilator Mechanical Ventilator Ventilator 02/19/17 02/19/17 02/19/17 02/19/17 05:00 05:40 06:00 07:00 Pulse 83 78 92 Resp 30 30 30 B/P (MAP) 140/79 (99) 148/83 (104) 145/80 (101) Pulse Ox 100 100 100 100 O2 Delivery Ventilator Ventilator Ventilator Ventilator 02/19/17 02/19/17 02/19/17 07:19 08:00 09:00 Temp 98.6 98.6 Pulse 97 100 Resp 30 30 B/P (MAP) 138/79 (98) 163/78 (106) Pulse Ox 100 100 100 O2 Delivery Ventilator Ventilator Ventilator Intake and Output 02/19/17 02/19/17 02/20/17 15:00 23:00 07:00 Intake Total 0 ml Balance 0 ml BERONICA VILLATORO MD Feb 19, 2017 09:49
--- NOTE | 2017-02-19 11:32 | PDOC ---
Renal-Progress Notes Subjective Notes Notes NONE History of Present Illness Hx of present illness NO CHANGE Vitals Vitals Vital Signs Date Time Temp Pulse Resp B/P (MAP) Pulse Ox O2 Delivery O2 Flow Rate FiO2 02/19/17 11:13 100 Ventilator 02/19/17 11:00 97.6 122 30 95/60 (72) 97.6 Weight Weight [ ] I.O. Intake and Output Intake and Output 02/20/17 07:00 Intake Total 0 ml Balance 0 ml Tube Feeding 0 ml # Bowel Movements 1 Labs Labs Laboratory Tests Test 02/18/17 18:03 02/19/17 00:02 02/19/17 06:05 02/19/17 06:06 Glucose (Fingerstick) 142 mg/dL (70-99) 147 mg/dL (70-99) 126 mg/dL (70-99) White Blood Count 29.4 x10^3/uL (4.0-11.0) Red Blood Count 2.10 x10^6/uL (3.50-5.40) Hemoglobin 7.4 g/dL (12.0-15.5) Hematocrit 20.6 % (36.0-47.0) Mean Corpuscular Volume 98 fL (79-100) Mean Corpuscular Hemoglobin 35 pg (25-35) Mean Corpuscular Hemoglobin Concent 36 g/dL (31-37) Red Cell Distribution Width 14.4 % (11.5-14.5) Platelet Count 159 x10^3/uL (140-400) Neutrophils (%) (Auto) 96 % (31-73) Lymphocytes (%) (Auto) 2 % (24-48) Monocytes (%) (Auto) 2 % (0-9) Eosinophils (%) (Auto) 0 % (0-3) Basophils (%) (Auto) 0 % (0-3) Neutrophils # (Auto) 28.2 x10^3uL (1.8-7.7) Lymphocytes # (Auto) 0.6 x10^3/uL (1.0-4.8) Monocytes # (Auto) 0.5 x10^3/uL (0.0-1.1) Eosinophils # (Auto) 0.0 x10^3/uL (0.0-0.7) Basophils # (Auto) 0.0 x10^3/uL (0.0-0.2) Sodium Level 134 mmol/L (136-145) Potassium Level 3.8 mmol/L (3.5-5.1) Chloride Level 96 mmol/L (98-107) Carbon Dioxide Level 24 mmol/L (21-32) Anion Gap 14 (6-14) Blood Urea Nitrogen 88 mg/dL (7-20) Creatinine 5.1 mg/dL (0.6-1.0) Estimated GFR (Cockcroft-Gault) 10.7 Glucose Level 130 mg/dL (70-99) Calcium Level 8.1 mg/dL (8.5-10.1) Phosphorus Level 4.2 mg/dL (2.6-4.7) Albumin 1.9 g/dL (3.4-5.0) Test 02/19/17 07:25 O2 Saturation 98 % (92-99) Arterial Blood pH 7.38 (7.35-7.45) Arterial Blood pCO2 at Patient Temp 40 mmHg (35-46) Arterial Blood pO2 at Patient Temp 114 mmHg (75-108) Arterial Blood HCO3 23 mmol/L (21-28) Arterial Blood Base Excess -2 mmol/L (-3-3) FiO2 40 Micro Micro Microbiology 02/15/17 Blood Culture - Preliminary, Resulted NO GROWTH AFTER 3 DAYS 02/12/17 Urine Culture - Final, Complete 02/12/17 Urine Culture Result 1 (ELIZABETH) - Final, Complete Review of Systems Constitutional: yes: no symptom reported Physical Exam General Appearance: no apparent distress Skin: warm Respiratory: decreased breath sounds Heart: S1S2, RRR Abdomen: soft Genitourinary: bladder flat Extremities: pulses present, atrophy Neurology: other (unresponsive) Musculoskeletal: Other (costochondritis) Assessment Assessment IMP DARYA-ANURIA RESP FAILURE S/P CARDIAC ARREST SEPSIS ANOXIC ENCEPHALOPATHY PLAN HD TODAY UF TO DW PRESSORS NEEDED ANTIBIOTICS CONT TF SUPPORTIVE CARE TILL DECISION MADE ADRIAN BRIGGS MD Feb 19, 2017 11:32
--- NOTE | 2017-02-19 13:18 | PDOC2 ---
PALLIATIVE CARE Palliative Care Note Palliative Care 0830 Patient remains on Vent. Patient is able to breath on her own. PERRL; Extremities flaccid. Minimal response to painful stimuli. Spoke with Drew Hernandez--court appointed guardian. Updated on current medical condition as well as update provided to ethics consult team. Drew provided guidance on how to proceed with petitioning the court for code status and AND. Drew has had not further discussion with Oscar Dugan, patient's sister' s or Silvia patient's sister. This information was discussed with Dr. Henderson, Dr. Tomas and Dr. Agee. Dr. Henderson will assist with documents necessary for Drew Hernandez-- guardian. 1200 patient seen on dialysis; Increase in respiratory distress and increase in HR 130's B/P declining. ARABELLA COLEMAN Feb 19, 2017 13:18
[2017-02-19] MEDS: FAMOTIDINE 20 MG/2 ML VIAL IVP SCH (13:52)
[2017-02-19] MEDS: ASPIRIN 300 MG SUPP.RECT PR SCH (13:52)
[2017-02-19] MEDS: methylPREDNISolone SOD SUCC PF 125 MG/2 ML VIAL. IV SCH ×3 (13:52→20:31)
--- NOTE | 2017-02-19 15:21 | PDOC ---
PULMONARY PROGRESS NOTES Subjective REMAINS INTUBATED OFF SEDATION SINCE 02/15 NO RESPONSE TO STERNAL RUB Vitals Vital Signs Date Time Temp Pulse Resp B/P (MAP) Pulse Ox O2 Delivery O2 Flow Rate FiO2 02/19/17 15:16 100 Ventilator 02/19/17 14:00 102 30 139/82 (101) 02/19/17 11:00 97.6 97.6 Lungs: Clear Cardiovascular: S1, S2 Abdomen: Soft Extremities: No Edema Skin: Warm, Dry Labs Laboratory Tests Test 02/17/17 18:15 02/18/17 00:04 02/18/17 00:05 02/18/17 05:53 Sodium Level 135 mmol/L (136-145) 134 mmol/L (136-145) Glucose (Fingerstick) 141 mg/dL (70-99) 146 mg/dL (70-99) Test 02/18/17 06:01 02/18/17 09:15 02/18/17 18:03 02/19/17 00:02 White Blood Count 22.3 x10^3/uL (4.0-11.0) Red Blood Count 2.45 x10^6/uL (3.50-5.40) Hemoglobin 8.1 g/dL (12.0-15.5) Hematocrit 23.8 % (36.0-47.0) Mean Corpuscular Volume 97 fL (79-100) Mean Corpuscular Hemoglobin 33 pg (25-35) Mean Corpuscular Hemoglobin Concent 34 g/dL (31-37) Red Cell Distribution Width 14.4 % (11.5-14.5) Platelet Count 149 x10^3/uL (140-400) Neutrophils (%) (Auto) 96 % (31-73) Lymphocytes (%) (Auto) 3 % (24-48) Monocytes (%) (Auto) 1 % (0-9) Eosinophils (%) (Auto) 0 % (0-3) Basophils (%) (Auto) 0 % (0-3) Neutrophils # (Auto) 21.3 x10^3uL (1.8-7.7) Lymphocytes # (Auto) 0.6 x10^3/uL (1.0-4.8) Monocytes # (Auto) 0.3 x10^3/uL (0.0-1.1) Eosinophils # (Auto) 0.0 x10^3/uL (0.0-0.7) Basophils # (Auto) 0.0 x10^3/uL (0.0-0.2) Segmented Neutrophils % 60 % (35-66) Band Neutrophils % 30 % (0-9) Lymphocytes % 3 % (24-48) Monocytes % 1 % (0-10) Metamyelocytes % 2 % (0-0) Myelocytes % 1 % (0-0) Promyelocytes % 3 % (0-0) Nucleated Red Blood Cells 4 Toxic Granulation Slight Platelet Estimate Adequate (ADEQUATE) Polychromasia Slight Prothrombin Time 16.9 SEC (11.7-14.0) Prothromb Time International Ratio 1.5 (0.8-1.1) Sodium Level 134 mmol/L (136-145) Potassium Level 3.7 mmol/L (3.5-5.1) Chloride Level 97 mmol/L (98-107) Carbon Dioxide Level 26 mmol/L (21-32) Anion Gap 11 (6-14) Blood Urea Nitrogen 59 mg/dL (7-20) Creatinine 3.8 mg/dL (0.6-1.0) Estimated GFR (Cockcroft-Gault) 15.0 Glucose Level 149 mg/dL (70-99) Calcium Level 8.5 mg/dL (8.5-10.1) Phosphorus Level 3.7 mg/dL (2.6-4.7) Magnesium Level 2.3 mg/dL (1.8-2.4) Albumin 2.2 g/dL (3.4-5.0) O2 Saturation 98 % (92-99) Arterial Blood pH 7.38 (7.35-7.45) Arterial Blood pCO2 at Patient Temp 40 mmHg (35-46) Arterial Blood pO2 at Patient Temp 137 mmHg (75-108) Arterial Blood HCO3 23 mmol/L (21-28) Arterial Blood Base Excess -2 mmol/L (-3-3) FiO2 40 Glucose (Fingerstick) 142 mg/dL (70-99) 147 mg/dL (70-99) Test 02/19/17 06:05 02/19/17 06:06 02/19/17 07:25 White Blood Count 29.4 x10^3/uL (4.0-11.0) Red Blood Count 2.10 x10^6/uL (3.50-5.40) Hemoglobin 7.4 g/dL (12.0-15.5) Hematocrit 20.6 % (36.0-47.0) Mean Corpuscular Volume 98 fL (79-100) Mean Corpuscular Hemoglobin 35 pg (25-35) Mean Corpuscular Hemoglobin Concent 36 g/dL (31-37) Red Cell Distribution Width 14.4 % (11.5-14.5) Platelet Count 159 x10^3/uL (140-400) Neutrophils (%) (Auto) 96 % (31-73) Lymphocytes (%) (Auto) 2 % (24-48) Monocytes (%) (Auto) 2 % (0-9) Eosinophils (%) (Auto) 0 % (0-3) Basophils (%) (Auto) 0 % (0-3) Neutrophils # (Auto) 28.2 x10^3uL (1.8-7.7) Lymphocytes # (Auto) 0.6 x10^3/uL (1.0-4.8) Monocytes # (Auto) 0.5 x10^3/uL (0.0-1.1) Eosinophils # (Auto) 0.0 x10^3/uL (0.0-0.7) Basophils # (Auto) 0.0 x10^3/uL (0.0-0.2) Sodium Level 134 mmol/L (136-145) Potassium Level 3.8 mmol/L (3.5-5.1) Chloride Level 96 mmol/L (98-107) Carbon Dioxide Level 24 mmol/L (21-32) Anion Gap 14 (6-14) Blood Urea Nitrogen 88 mg/dL (7-20) Creatinine 5.1 mg/dL (0.6-1.0) Estimated GFR (Cockcroft-Gault) 10.7 Glucose Level 130 mg/dL (70-99) Calcium Level 8.1 mg/dL (8.5-10.1) Phosphorus Level 4.2 mg/dL (2.6-4.7) Albumin 1.9 g/dL (3.4-5.0) Glucose (Fingerstick) 126 mg/dL (70-99) O2 Saturation 98 % (92-99) Arterial Blood pH 7.38 (7.35-7.45) Arterial Blood pCO2 at Patient Temp 40 mmHg (35-46) Arterial Blood pO2 at Patient Temp 114 mmHg (75-108) Arterial Blood HCO3 23 mmol/L (21-28) Arterial Blood Base Excess -2 mmol/L (-3-3) FiO2 40 Laboratory Tests Test 02/18/17 18:03 02/19/17 00:02 02/19/17 06:05 02/19/17 06:06 Glucose (Fingerstick) 142 mg/dL (70-99) 147 mg/dL (70-99) 126 mg/dL (70-99) White Blood Count 29.4 x10^3/uL (4.0-11.0) Red Blood Count 2.10 x10^6/uL (3.50-5.40) Hemoglobin 7.4 g/dL (12.0-15.5) Hematocrit 20.6 % (36.0-47.0) Mean Corpuscular Volume 98 fL (79-100) Mean Corpuscular Hemoglobin 35 pg (25-35) Mean Corpuscular Hemoglobin Concent 36 g/dL (31-37) Red Cell Distribution Width 14.4 % (11.5-14.5) Platelet Count 159 x10^3/uL (140-400) Neutrophils (%) (Auto) 96 % (31-73) Lymphocytes (%) (Auto) 2 % (24-48) Monocytes (%) (Auto) 2 % (0-9) Eosinophils (%) (Auto) 0 % (0-3) Basophils (%) (Auto) 0 % (0-3) Neutrophils # (Auto) 28.2 x10^3uL (1.8-7.7) Lymphocytes # (Auto) 0.6 x10^3/uL (1.0-4.8) Monocytes # (Auto) 0.5 x10^3/uL (0.0-1.1) Eosinophils # (Auto) 0.0 x10^3/uL (0.0-0.7) Basophils # (Auto) 0.0 x10^3/uL (0.0-0.2) Sodium Level 134 mmol/L (136-145) Potassium Level 3.8 mmol/L (3.5-5.1) Chloride Level 96 mmol/L (98-107) Carbon Dioxide Level 24 mmol/L (21-32) Anion Gap 14 (6-14) Blood Urea Nitrogen 88 mg/dL (7-20) Creatinine 5.1 mg/dL (0.6-1.0) Estimated GFR (Cockcroft-Gault) 10.7 Glucose Level 130 mg/dL (70-99) Calcium Level 8.1 mg/dL (8.5-10.1) Phosphorus Level 4.2 mg/dL (2.6-4.7) Albumin 1.9 g/dL (3.4-5.0) Test 02/19/17 07:25 O2 Saturation 98 % (92-99) Arterial Blood pH 7.38 (7.35-7.45) Arterial Blood pCO2 at Patient Temp 40 mmHg (35-46) Arterial Blood pO2 at Patient Temp 114 mmHg (75-108) Arterial Blood HCO3 23 mmol/L (21-28) Arterial Blood Base Excess -2 mmol/L (-3-3) FiO2 40 Medications Active Scripts Medications Dose Route/Sig Max Daily Dose Days Date Category Latuda (Lurasidone Hcl) 20 Mg Tablet 20 Mg PO AFTRNOON 02/12/17 Reported Remeron (Mirtazapine) 15 Mg Tablet 1 Tab PO QHS 02/12/17 Reported Oxybutynin Chloride Er (Oxybutynin Chloride) 10 Mg Tab.er.24 1 Tab PO DAILY 02/12/17 Reported Multivitamins (Multivitamin) 1 Each Tablet 1 Tab PO DAILY 02/12/17 Reported Latuda (Lurasidone Hcl) 20 Mg Tablet 10 Mg PO AFTRNOON 02/12/17 Reported Lorazepam 0.5 Mg Tablet 1 Tab PO QEVNG 02/12/17 Reported Duoneb 0.5-3(2.5) Mg/3 Ml (Albuterol/Ipratropium) 3 Ml Ampul.neb 3 Ml NEB BID 02/12/17 Reported Duoneb 0.5-3(2.5) Mg/3 Ml (Albuterol/Ipratropium) 3 Ml Ampul.neb 3 Ml NEB Q4H PRN 02/12/17 Reported Calcium Carbonate 500 Mg Tablet 1,000 Mg PO Q4HRS PRN 02/12/17 Reported Nicotine Gum (Nicotine Polacrilex) 4 Mg Gum 4 Mg BC 02/12/17 Reported Milk Of Magnesia (Magnesium Hydroxide) 400 Mg/5 Ml Oral.susp 400 Mg PO Q3DAYS PRN 02/12/17 Reported Milk Of Magnesia (Magnesium Hydroxide) 400 Mg/5 Ml Oral.susp 400 Mg PO Q3DAYS PRN 02/12/17 Reported Lorazepam 1 Mg Tablet 1 Tab PO Q12HR PRN 02/12/17 Reported Ibuprofen 400 Mg Tablet 200 Mg PO Q8HRS PRN 02/12/17 Reported Cough Drops (Eucalyptus Oil/Menthol) 7 Mg Lozenge 7 Mg MM Q4HRS PRN 02/12/17 Reported Tylenol (Acetaminophen) 325 Mg Tablet 650 Mg PO Q4HRS PRN 02/12/17 Reported Lovaza (Wilburn-3 Acid Ethyl Esters) 1 Gm Capsule 1 Cap PO QID 02/12/17 Reported Gabapentin 400 Mg Capsule 400 Mg PO QID 02/12/17 Reported Lorazepam 1 Mg Tablet 1 Tab PO BID 02/12/17 Reported Latuda (Lurasidone Hcl) 60 Mg Tablet 60 Mg PO BID 02/12/17 Reported Advair 100-50 Diskus (Fluticasone/Salmeterol) 1 Each Disk.w.dev 1 Puff IH BID 02/12/17 Reported Acetaminophen 325 Mg Capsule 650 Mg PO BID 02/12/17 Reported Vitamin D (Cholecalciferol (Vitamin D3)) 2,000 Unit Capsule 800 Unit PO DAILY 02/12/17 Reported Comments REVIEWED NO CHANGE Impression . 1. Acute respiratory failure, sec to out of hospital arrest 2. Acute toxic/metabolic encephalopathy 3. Status post cardiopulmonary arrest. She had asystole. anoxic brain injury 4. Abnormal echocardiogram with ejection fraction of 35%. 5. Hyponatremia 6. Abnormal LFTs secondary to hypoperfusion. 7. Acute renal failure. 8. Shock, combination of cardiogenic,septic/ OFF PRESSOR Plan . D/W PALLIATIVE CARE NURSE WILL PROCEED WITH PETITION THE COURTS TO CONSIDER ALLOWING NATURAL CONTINUE SUPPORT FOR NOW 1. Continue with present assist control mode pt not ready for wean, will await neuro improvement 2. Antibx per ID 3. Latic acidosis improved 4. HD 5. DVT prophylaxis. still has high INR 6. Stress ulcer prophylaxis with Pepcid. 7. off vasopressor. 8. venous Doppler of lower extremities neg for DVT 9. Would favor no further resuscitation efforts if code again LORENZO HAYNES MD Feb 19, 2017 15:21
--- NOTE | 2017-02-19 17:07 | PDOC ---
PROGRESS NOTES Assessment Assessment S/p cardiac pulmonary arrest received hypothermia, CPR 20 minutes. Anoxic encephalopathy. Metabolic encephalopathy. Respiratory failure. Pulmonary infiltrate. Renal failure. Multi-organ failure. Sepsis. Lactic acidosis. Leukocytosis. HTN HLD COPD Anemia HCV, Hx ? EEG on 02/17/17: Abnormal. PLEDs. Sharp waves. Slowing. HCT on 02/12: Unremarkable. RECOMMENDATIONS/PLAN: Treat medical and cardiac diseases at the present time. Continue Keppra 500 mg IV q12 h. Brain MRI w/o contrast to help rule out acute CVA. Poor prognosis. Suggested comfort care. 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 ALLERGY: Reviewed. MEDICATIONS: Refer to [facility] REVIEW OF SYSTEMS: Constitutional: No malnutrition, cachexia. Head: No recent traumatic brain or head injury. Skin: No edema, or rash. Ear: No infection. Eyes: No vision loss, or diplopia. Nose: No bleeding or purulent discharges. Hearing: No hearing decrease. Neck: No injury. Breast: No history of cancer, masses, or discharges. Cardiac: HTN, HLD Pulmonary: CPOD. GI: No GI Ulcer, GI bleeding Urinary/genital: UTI. Endocrine: [id number]. Skeletomuscular: No muscular atrophy. Neurological: see HP. Psychiatric: Denies drug use/abuse. Otherwise, not [id number] review of systems. PHYSICAL EXAMINATION: General appearance in subacute distress. HEENT: Normocephalic and nontraumatic. Eyes, nose, ears, and throat are unremarkable. Neck is supple. No lymphadenopathy. No bruits are heard over the carotid artery. Cardiovascular: S1, S2, seemed regular rate and rhythm. Pulmonary: On vent. Abdomen: Bowel sounds are positive. Extremities: No rash, lesions. NEUROLOGICAL EXAMINATION: On vent. Unresponsive. No sedation > 72 hours. Not oriented to time, place and person. PERRL. EOMI not elicited. CN: no acute focal findings. Muscle tone: decreased. Muscle strength: no obvious movements observed. DTR: 1 Plantar reflex: No response bilaterally Gait: Unable to walk. Sensory exam: No response to pain stimuli. Not able to access cerebellar signs elicited. Not able to perform F-T-N test during coma. Objective Objective Vital Signs Date Time Temp Pulse Resp B/P (MAP) Pulse Ox O2 Delivery O2 Flow Rate FiO2 02/19/17 16:55 100 Ventilator 02/19/17 16:45 98.1 98 18 147/71 98.1 Intake and Output 02/20/17 07:00 Intake Total 0 ml Output Total 0 ml Balance 0 ml Tube Feeding 0 ml Output Urine Total 0 ml # Bowel Movements 2 Vitals Signs Vitals VS - Last 72 Hours, by Label Date Time Temp Pulse Resp B/P (MAP) Pulse Ox O2 Delivery O2 Flow Rate FiO2 02/19/17 16:55 100 Ventilator 02/19/17 16:45 98.1 98 18 147/71 98.1 02/19/17 16:00 98.5 103 30 128/74 (92) 100 Ventilator 98.5 02/19/17 15:16 100 Ventilator 02/19/17 15:00 105 30 128/71 (90) 100 Ventilator 02/19/17 14:00 102 30 139/82 (101) 100 Ventilator 02/19/17 13:00 106 30 137/72 (93) 100 Ventilator 02/19/17 13:00 100 Ventilator 02/19/17 12:00 Mechanical Ventilator 02/19/17 12:00 113 30 129/59 (82) 100 Ventilator 02/19/17 11:13 100 Ventilator 02/19/17 11:00 97.6 122 30 95/60 (72) 100 Ventilator 97.6 02/19/17 10:00 122 30 119/70 (86) 100 Ventilator 02/19/17 09:10 100 Ventilator 02/19/17 09:00 100 30 163/78 (106) 100 Ventilator 02/19/17 08:00 Mechanical Ventilator 02/19/17 08:00 98.6 97 30 138/79 (98) 100 Ventilator 98.6 02/19/17 07:19 100 Ventilator 02/19/17 07:00 92 30 145/80 (101) 100 Ventilator 02/19/17 06:00 78 30 148/83 (104) 100 Ventilator 02/19/17 05:40 100 Ventilator 02/19/17 05:00 83 30 140/79 (99) 100 Ventilator 02/19/17 04:00 98.9 91 30 154/82 (106) 100 Ventilator 98.9 02/19/17 04:00 Mechanical Ventilator 02/19/17 03:00 85 30 155/82 (106) 100 Ventilator 02/19/17 02:20 100 Ventilator 02/19/17 02:00 84 30 153/80 (104) 100 Ventilator 02/19/17 01:00 78 30 151/83 (105) 100 Ventilator 02/18/17 23:59 Mechanical Ventilator 02/18/17 23:59 99.0 82 30 154/82 (106) 100 Ventilator 99.0 02/18/17 23:45 100 Ventilator 02/18/17 23:00 82 30 159/79 (105) 100 Ventilator 02/18/17 22:00 83 30 152/76 (101) 100 Ventilator 02/18/17 21:27 100 Ventilator 02/18/17 21:00 80 30 153/77 (102) 100 Ventilator 02/18/17 20:00 98.9 79 30 146/72 (96) 100 Ventilator 98.9 02/18/17 20:00 Mechanical Ventilator 02/18/17 19:29 100 Ventilator 02/18/17 19:00 76 30 153/73 (99) 100 Ventilator 02/18/17 18:20 75 30 155/72 (99) 100 Ventilator 02/18/17 17:00 64 30 153/79 (103) 100 Ventilator 02/18/17 16:42 100 Ventilator 02/18/17 16:00 Mechanical Ventilator 02/18/17 16:00 98.2 70 30 155/78 (103) 100 Ventilator 98.2 02/18/17 15:00 100 Ventilator 02/18/17 15:00 74 30 152/82 (105) 100 Ventilator 02/18/17 14:00 68 30 134/68 (90) 100 Ventilator 02/18/17 13:00 76 30 147/78 (101) 100 Ventilator 02/18/17 12:54 100 Ventilator 02/18/17 12:00 99.2 78 30 147/79 (101) 100 Ventilator 99.2 02/18/17 12:00 Mechanical Ventilator 02/18/17 11:00 74 30 146/76 (99) 100 Ventilator 02/18/17 10:45 100 Ventilator 02/18/17 10:00 80 30 145/67 (93) 100 Ventilator 02/18/17 09:00 76 30 156/91 (112) 100 Ventilator 02/18/17 08:50 100 Ventilator 02/18/17 08:00 98.9 76 30 158/87 (110) 100 Ventilator 98.9 02/18/17 08:00 Mechanical Ventilator 02/18/17 07:00 80 30 139/70 (93) 100 Ventilator Laboratory Laboratory Laboratory Tests Test 02/18/17 18:03 02/19/17 00:02 02/19/17 06:05 02/19/17 06:06 Glucose (Fingerstick) 142 mg/dL (70-99) 147 mg/dL (70-99) 126 mg/dL (70-99) White Blood Count 29.4 x10^3/uL (4.0-11.0) Red Blood Count 2.10 x10^6/uL (3.50-5.40) Hemoglobin 7.4 g/dL (12.0-15.5) Hematocrit 20.6 % (36.0-47.0) Mean Corpuscular Volume 98 fL (79-100) Mean Corpuscular Hemoglobin 35 pg (25-35) Mean Corpuscular Hemoglobin Concent 36 g/dL (31-37) Red Cell Distribution Width 14.4 % (11.5-14.5) Platelet Count 159 x10^3/uL (140-400) Neutrophils (%) (Auto) 96 % (31-73) Lymphocytes (%) (Auto) 2 % (24-48) Monocytes (%) (Auto) 2 % (0-9) Eosinophils (%) (Auto) 0 % (0-3) Basophils (%) (Auto) 0 % (0-3) Neutrophils # (Auto) 28.2 x10^3uL (1.8-7.7) Lymphocytes # (Auto) 0.6 x10^3/uL (1.0-4.8) Monocytes # (Auto) 0.5 x10^3/uL (0.0-1.1) Eosinophils # (Auto) 0.0 x10^3/uL (0.0-0.7) Basophils # (Auto) 0.0 x10^3/uL (0.0-0.2) Sodium Level 134 mmol/L (136-145) Potassium Level 3.8 mmol/L (3.5-5.1) Chloride Level 96 mmol/L (98-107) Carbon Dioxide Level 24 mmol/L (21-32) Anion Gap 14 (6-14) Blood Urea Nitrogen 88 mg/dL (7-20) Creatinine 5.1 mg/dL (0.6-1.0) Estimated GFR (Cockcroft-Gault) 10.7 Glucose Level 130 mg/dL (70-99) Calcium Level 8.1 mg/dL (8.5-10.1) Phosphorus Level 4.2 mg/dL (2.6-4.7) Albumin 1.9 g/dL (3.4-5.0) Test 02/19/17 07:25 O2 Saturation 98 % (92-99) Arterial Blood pH 7.38 (7.35-7.45) Arterial Blood pCO2 at Patient Temp 40 mmHg (35-46) Arterial Blood pO2 at Patient Temp 114 mmHg (75-108) Arterial Blood HCO3 23 mmol/L (21-28) Arterial Blood Base Excess -2 mmol/L (-3-3) FiO2 40 Microbiology 02/15/17 Blood Culture - Preliminary, Resulted NO GROWTH AFTER 4 DAYS 02/12/17 Urine Culture - Final, Complete 02/12/17 Urine Culture Result 1 (ELIZABETH) - Final, Complete Medication Medications Current Medications Albumin Human 200 ml @ 200 mls/hr 1X PRN PRN IV Hypotension; Start 02/19/17 at 09:15; Stop 02/19/17 at 15:14; Status DC Info (PHARMACY MONITORING -- do not chart) 1 each PRN DAILY PRN MC SEE COMMENTS ; Start 02/19/17 at 09:15; Stop 02/19/17 at 09:17; Status DC Info (PHARMACY MONITORING -- do not chart) 1 each PRN DAILY PRN MC SEE COMMENTS ; Start 02/19/17 at 09:15 Sodium Chloride 1,000 ml @ 400 mls/hr Q2H30M PRN IV PATENCY; Start 02/19/17 at 09:08; Stop 02/19/17 at 21:07 Sodium Chloride 1,000 ml @ 1,000 mls/hr Q1H PRN IV hypotension; Start 02/19/17 at 09:08; Stop 02/19/17 at 15:07; Status DC Vancomycin HCl 1 each 1X ONCE MC ; Start 02/20/17 at 05:00; Stop 02/20/17 at 05 :01 Comment Review of Relevant I have reviewed the following items reji (where applicable) has been applied. YASMINE BERNAL MD Feb 19, 2017 17:07
[2017-02-19] MEDS: IV DEXTROSE 5 %-0.2 % NACL 1,000 ML IV SCH (20:26)
--- NOTE | 2017-02-19 21:53 | RAD ---
CT HEAD WO CONTRAST dated 02/19/2017 6:08 PM Indication: Decreased level of consciousness, intubation multiple CODE BLUE. Comparison: Comparison made to 02/12/2017. Technique: Contiguous axial imaging of the head was performed from skull base to vertex. No contrast administered. One or more of the following individualized dose reduction techniques were utilized for this examination: 1. Automated exposure control 2. Adjustment of the mA and/or kV according to patient size 3. Use of iterative reconstruction technique Findings: Ventricles and sulci are within normal limits for age. No midline shift or mass effect. Brain parenchyma is of normal attenuation. No hemorrhage or extra-axial collection. Posterior fossa and brainstem unremarkable. Moderate mucosal thickening of the bilateral ethmoid air cells and maxillary sinus. There is subtotal opacification of the sphenoid sinuses with air-fluid level in the bilateral maxillary sinus, similar to prior study. Mastoid air cells are clear. No apparent calvarial abnormality. IMPRESSION: 1. No evidence of acute intracranial hemorrhage or mass. 2. Paranasal sinus disease with air-fluid levels, similar to prior exam. Electronically signed by: Tyson Warner MD (02/19/2017 9:49 PM) [facility]
[2017-02-20] VITALS (24 sets, daily range): BP systolic 130–159; BP diastolic 80–97
[2017-02-20] MEDS ORDERED: VANCOMYCIN RANDOM LEVEL. MC ONE (05:00)
[2017-02-20] MEDS: HEPARIN PF for SUB-Q USE 5,000 UNIT/0.5 ML VIAL. SQ SCH ×3 (05:36→21:33)
[2017-02-20 05:56] LABS: ALBUMIN 1.9 g/dL (3.4-5.0); CALCIUM 8.2 mg/dL (8.5-10.1); GFR 14.1; PHOSPHORUS 3.9 mg/dL (2.6-4.7)
[2017-02-20 07:55] LABS: HEMATOCRIT 23.8 % (36.0-47.0); RED BLOOD COUNT 2.48 x10^6/uL (3.50-5.40); RED CELL DISTRIBUTION WIDTH 15.4 % (11.5-14.5); WHITE BLOOD COUNT 36.3 x10^3/uL (4.0-11.0)
--- NOTE | 2017-02-20 08:11 | PDOC ---
Infectious Disease Note Subjective Subjective Off sedation -nonresponsive Apparently has a gag and reacts to pain with ABGs ROS ROS Unobtainable Vital Sign Vital Signs Vital Signs Date Time Temp Pulse Resp B/P (MAP) Pulse Ox O2 Delivery O2 Flow Rate FiO2 02/20/17 07:32 100 Ventilator 02/20/17 07:00 92 30 146/87 (106) 02/20/17 04:00 99.9 99.9 Physical Exam PHYSICAL EXAM GENERAL: Intubated, non responsive HEENT: PERRL, OGT, ETT LUNGS: Clear HEART: S1S2, regular ABD: Soft, No grimace or guarding to palpation : Velazquez EXT: 1 to 2 plus edema, no cyanosis CHALKER SOLES: Unresponsive verbal/tactile stimuli. ? Pain withdrawl SKIN: No rash [facility]IJ. (02/13). clean [facility]. (02/15). Labs Lab Laboratory Tests Test 02/19/17 23:31 02/20/17 04:50 Glucose (Fingerstick) 137 mg/dL (70-99) White Blood Count 36.3 x10^3/uL (4.0-11.0) Red Blood Count 2.48 x10^6/uL (3.50-5.40) Hemoglobin 8.0 g/dL (12.0-15.5) Hematocrit 23.8 % (36.0-47.0) Mean Corpuscular Volume 96 fL (79-100) Mean Corpuscular Hemoglobin 32 pg (25-35) Mean Corpuscular Hemoglobin Concent 34 g/dL (31-37) Red Cell Distribution Width 15.4 % (11.5-14.5) Platelet Count 183 x10^3/uL (140-400) Sodium Level 135 mmol/L (136-145) Potassium Level 4.0 mmol/L (3.5-5.1) Chloride Level 98 mmol/L (98-107) Carbon Dioxide Level 26 mmol/L (21-32) Anion Gap 11 (6-14) Blood Urea Nitrogen 78 mg/dL (7-20) Creatinine 4.0 mg/dL (0.6-1.0) Estimated GFR (Cockcroft-Gault) 14.1 Glucose Level 161 mg/dL (70-99) Calcium Level 8.2 mg/dL (8.5-10.1) Phosphorus Level 3.9 mg/dL (2.6-4.7) Albumin 1.9 g/dL (3.4-5.0) Random Vancomycin Level 21.0 mcg/mL Objective Assessment MRSA sepsis/bacteremia, POA. 02/12. -TTE no evidence veg; Repeat BC from 02/15 neg Anemia Encephalopathy - nonresponsive S/P Cardiac arrest Respiratory failure COPD Leukocytosis - on high dose steroids DARYA. Now on HD Schizophrenia Plan Plan of Care F/u temps if persistent low grade or spike to over 101 will cult and expand abx Cont Vanc for now and check procalcitonin Await court decision Needs DNR/DNI Needs palliative extubation as overall prognosis is poor Critically ill JAVIER HUGHES MD Feb 20, 2017 08:11
[2017-02-20 08:22] LABS: HCO3 ABG 24 mmol/L (21-28); PCO2 ABG 41 mmHg (35-46); PH ABG 7.39 (7.35-7.45); PO2 ABG 107 mmHg (75-108); SAT O2 ABG 97 % (92-99)
[2017-02-20 08:28] LABS: FIO2 ABG 40
--- NOTE | 2017-02-20 09:07 | PDOC ---
PULMONARY PROGRESS NOTES Subjective REMAINS INTUBATED OFF SEDATION SINCE 02/15 NO RESPONSE TO STERNAL RUB Vitals Vital Signs Date Time Temp Pulse Resp B/P (MAP) Pulse Ox O2 Delivery O2 Flow Rate FiO2 02/20/17 07:32 100 Ventilator 02/20/17 07:00 92 30 146/87 (106) 02/20/17 04:00 99.9 99.9 Lungs: Clear Cardiovascular: S1, S2 Abdomen: Soft Extremities: No Edema Skin: Warm, Dry Labs Laboratory Tests Test 02/18/17 09:15 02/18/17 18:03 02/19/17 00:02 02/19/17 06:05 O2 Saturation 98 % (92-99) Arterial Blood pH 7.38 (7.35-7.45) Arterial Blood pCO2 at Patient Temp 40 mmHg (35-46) Arterial Blood pO2 at Patient Temp 137 mmHg (75-108) Arterial Blood HCO3 23 mmol/L (21-28) Arterial Blood Base Excess -2 mmol/L (-3-3) FiO2 40 Glucose (Fingerstick) 142 mg/dL (70-99) 147 mg/dL (70-99) White Blood Count 29.4 x10^3/uL (4.0-11.0) Red Blood Count 2.10 x10^6/uL (3.50-5.40) Hemoglobin 7.4 g/dL (12.0-15.5) Hematocrit 20.6 % (36.0-47.0) Mean Corpuscular Volume 98 fL (79-100) Mean Corpuscular Hemoglobin 35 pg (25-35) Mean Corpuscular Hemoglobin Concent 36 g/dL (31-37) Red Cell Distribution Width 14.4 % (11.5-14.5) Platelet Count 159 x10^3/uL (140-400) Neutrophils (%) (Auto) 96 % (31-73) Lymphocytes (%) (Auto) 2 % (24-48) Monocytes (%) (Auto) 2 % (0-9) Eosinophils (%) (Auto) 0 % (0-3) Basophils (%) (Auto) 0 % (0-3) Neutrophils # (Auto) 28.2 x10^3uL (1.8-7.7) Lymphocytes # (Auto) 0.6 x10^3/uL (1.0-4.8) Monocytes # (Auto) 0.5 x10^3/uL (0.0-1.1) Eosinophils # (Auto) 0.0 x10^3/uL (0.0-0.7) Basophils # (Auto) 0.0 x10^3/uL (0.0-0.2) Sodium Level 134 mmol/L (136-145) Potassium Level 3.8 mmol/L (3.5-5.1) Chloride Level 96 mmol/L (98-107) Carbon Dioxide Level 24 mmol/L (21-32) Anion Gap 14 (6-14) Blood Urea Nitrogen 88 mg/dL (7-20) Creatinine 5.1 mg/dL (0.6-1.0) Estimated GFR (Cockcroft-Gault) 10.7 Glucose Level 130 mg/dL (70-99) Calcium Level 8.1 mg/dL (8.5-10.1) Phosphorus Level 4.2 mg/dL (2.6-4.7) Albumin 1.9 g/dL (3.4-5.0) Test 02/19/17 06:06 02/19/17 07:25 02/19/17 23:31 02/20/17 04:50 Glucose (Fingerstick) 126 mg/dL (70-99) 137 mg/dL (70-99) O2 Saturation 98 % (92-99) Arterial Blood pH 7.38 (7.35-7.45) Arterial Blood pCO2 at Patient Temp 40 mmHg (35-46) Arterial Blood pO2 at Patient Temp 114 mmHg (75-108) Arterial Blood HCO3 23 mmol/L (21-28) Arterial Blood Base Excess -2 mmol/L (-3-3) FiO2 40 White Blood Count 36.3 x10^3/uL (4.0-11.0) Red Blood Count 2.48 x10^6/uL (3.50-5.40) Hemoglobin 8.0 g/dL (12.0-15.5) Hematocrit 23.8 % (36.0-47.0) Mean Corpuscular Volume 96 fL (79-100) Mean Corpuscular Hemoglobin 32 pg (25-35) Mean Corpuscular Hemoglobin Concent 34 g/dL (31-37) Red Cell Distribution Width 15.4 % (11.5-14.5) Platelet Count 183 x10^3/uL (140-400) Sodium Level 135 mmol/L (136-145) Potassium Level 4.0 mmol/L (3.5-5.1) Chloride Level 98 mmol/L (98-107) Carbon Dioxide Level 26 mmol/L (21-32) Anion Gap 11 (6-14) Blood Urea Nitrogen 78 mg/dL (7-20) Creatinine 4.0 mg/dL (0.6-1.0) Estimated GFR (Cockcroft-Gault) 14.1 Glucose Level 161 mg/dL (70-99) Calcium Level 8.2 mg/dL (8.5-10.1) Phosphorus Level 3.9 mg/dL (2.6-4.7) Albumin 1.9 g/dL (3.4-5.0) Random Vancomycin Level 21.0 mcg/mL Test 02/20/17 04:58 02/20/17 08:00 Glucose (Fingerstick) 155 mg/dL (70-99) O2 Saturation 97 % (92-99) Arterial Blood pH 7.39 (7.35-7.45) Arterial Blood pCO2 at Patient Temp 41 mmHg (35-46) Arterial Blood pO2 at Patient Temp 107 mmHg (75-108) Arterial Blood HCO3 24 mmol/L (21-28) Arterial Blood Base Excess -1 mmol/L (-3-3) FiO2 40 Laboratory Tests Test 02/19/17 23:31 02/20/17 04:50 02/20/17 04:58 02/20/17 08:00 Glucose (Fingerstick) 137 mg/dL (70-99) 155 mg/dL (70-99) White Blood Count 36.3 x10^3/uL (4.0-11.0) Red Blood Count 2.48 x10^6/uL (3.50-5.40) Hemoglobin 8.0 g/dL (12.0-15.5) Hematocrit 23.8 % (36.0-47.0) Mean Corpuscular Volume 96 fL (79-100) Mean Corpuscular Hemoglobin 32 pg (25-35) Mean Corpuscular Hemoglobin Concent 34 g/dL (31-37) Red Cell Distribution Width 15.4 % (11.5-14.5) Platelet Count 183 x10^3/uL (140-400) Sodium Level 135 mmol/L (136-145) Potassium Level 4.0 mmol/L (3.5-5.1) Chloride Level 98 mmol/L (98-107) Carbon Dioxide Level 26 mmol/L (21-32) Anion Gap 11 (6-14) Blood Urea Nitrogen 78 mg/dL (7-20) Creatinine 4.0 mg/dL (0.6-1.0) Estimated GFR (Cockcroft-Gault) 14.1 Glucose Level 161 mg/dL (70-99) Calcium Level 8.2 mg/dL (8.5-10.1) Phosphorus Level 3.9 mg/dL (2.6-4.7) Albumin 1.9 g/dL (3.4-5.0) Random Vancomycin Level 21.0 mcg/mL O2 Saturation 97 % (92-99) Arterial Blood pH 7.39 (7.35-7.45) Arterial Blood pCO2 at Patient Temp 41 mmHg (35-46) Arterial Blood pO2 at Patient Temp 107 mmHg (75-108) Arterial Blood HCO3 24 mmol/L (21-28) Arterial Blood Base Excess -1 mmol/L (-3-3) FiO2 40 Medications Active Scripts Medications Dose Route/Sig Max Daily Dose Days Date Category Latuda (Lurasidone Hcl) 20 Mg Tablet 20 Mg PO AFTRNOON 02/12/17 Reported Remeron (Mirtazapine) 15 Mg Tablet 1 Tab PO QHS 02/12/17 Reported Oxybutynin Chloride Er (Oxybutynin Chloride) 10 Mg Tab.er.24 1 Tab PO DAILY 02/12/17 Reported Multivitamins (Multivitamin) 1 Each Tablet 1 Tab PO DAILY 02/12/17 Reported Latuda (Lurasidone Hcl) 20 Mg Tablet 10 Mg PO AFTRNOON 02/12/17 Reported Lorazepam 0.5 Mg Tablet 1 Tab PO QEVNG 02/12/17 Reported Duoneb 0.5-3(2.5) Mg/3 Ml (Albuterol/Ipratropium) 3 Ml Ampul.neb 3 Ml NEB BID 02/12/17 Reported Duoneb 0.5-3(2.5) Mg/3 Ml (Albuterol/Ipratropium) 3 Ml Ampul.neb 3 Ml NEB Q4H PRN 02/12/17 Reported Calcium Carbonate 500 Mg Tablet 1,000 Mg PO Q4HRS PRN 02/12/17 Reported Nicotine Gum (Nicotine Polacrilex) 4 Mg Gum 4 Mg BC 02/12/17 Reported Milk Of Magnesia (Magnesium Hydroxide) 400 Mg/5 Ml Oral.susp 400 Mg PO Q3DAYS PRN 02/12/17 Reported Milk Of Magnesia (Magnesium Hydroxide) 400 Mg/5 Ml Oral.susp 400 Mg PO Q3DAYS PRN 02/12/17 Reported Lorazepam 1 Mg Tablet 1 Tab PO Q12HR PRN 02/12/17 Reported Ibuprofen 400 Mg Tablet 200 Mg PO Q8HRS PRN 02/12/17 Reported Cough Drops (Eucalyptus Oil/Menthol) 7 Mg Lozenge 7 Mg MM Q4HRS PRN 02/12/17 Reported Tylenol (Acetaminophen) 325 Mg Tablet 650 Mg PO Q4HRS PRN 02/12/17 Reported Lovaza (Harlan-3 Acid Ethyl Esters) 1 Gm Capsule 1 Cap PO QID 02/12/17 Reported Gabapentin 400 Mg Capsule 400 Mg PO QID 02/12/17 Reported Lorazepam 1 Mg Tablet 1 Tab PO BID 02/12/17 Reported Latuda (Lurasidone Hcl) 60 Mg Tablet 60 Mg PO BID 02/12/17 Reported Advair 100-50 Diskus (Fluticasone/Salmeterol) 1 Each Disk.w.dev 1 Puff IH BID 02/12/17 Reported Acetaminophen 325 Mg Capsule 650 Mg PO BID 02/12/17 Reported Vitamin D (Cholecalciferol (Vitamin D3)) 2,000 Unit Capsule 800 Unit PO DAILY 02/12/17 Reported Comments REVIEWED NO CHANGE Impression . 1. Acute respiratory failure, sec to out of hospital arrest 2. Acute toxic/metabolic encephalopathy 3. Status post cardiopulmonary arrest. She had asystole. anoxic brain injury 4. Abnormal echocardiogram with ejection fraction of 35%. 5. Hyponatremia 6. Abnormal LFTs secondary to hypoperfusion. 7. Acute renal failure. 8. Shock, combination of cardiogenic,septic/ OFF PRESSOR Plan . D/W PALLIATIVE CARE NURSE LETTER DICTATED CONTINUE SUPPORT FOR NOW REPEAT CXR CT HEAD NOTHING NEW 1. Continue with present assist control mode 2. Antibx per ID 3. Latic acidosis improved 4. HD 5. DVT prophylaxis. still has high INR 6. Stress ulcer prophylaxis with Pepcid. 7. off vasopressor. 8. venous Doppler of lower extremities neg for DVT 9. Would favor no further resuscitation efforts if code again LORENZO HAYNES MD Feb 20, 2017 09:07
[2017-02-20] MEDS: methylPREDNISolone SOD SUCC PF 125 MG/2 ML VIAL. IV SCH ×3 (09:16→21:32)
[2017-02-20] MEDS: ASPIRIN 300 MG SUPP.RECT PR SCH (09:16)
[2017-02-20] MEDS: FAMOTIDINE 20 MG/2 ML VIAL IVP SCH (09:16)
--- NOTE | 2017-02-20 10:34 | PDOC ---
PROGRESS NOTES Chief Complaint Chief Complaint cardiac arrest, asystole, unknown down time, s/p hypothermia Anoxic encephalopathy, off sedation, no response Normal corrected calcium OLIGURIC RENAL FAILURE noW NEW HD [facility] resident HX schiz by documentation Sepsis with organ failure, needing pressor THrombocytopenia ANemia, normocytic Hyponatremia Acute precipitous drop hgb History of Present Illness History of Present Illness Same Off levo for days and off sedation for days but no response Anuric HAd HD few times Ethics committee on case, we are petitioning courts to allow natural Some paperwork I did sign s.p 1 pRBC yesterday for hgb 7 from 9 at baseline PLAN: HD per renal Supportive care Awaiting court orders etc to allow natural 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 Vital Signs Date Time Temp Pulse Resp B/P (MAP) Pulse Ox O2 Delivery O2 Flow Rate FiO2 02/20/17 09:10 100 Ventilator 02/20/17 07:00 92 30 146/87 (106) 02/20/17 04:00 99.9 99.9 Physical Exam General: Other (SEDATE ON VENT) Heart: Regular rate, Normal S1, Normal S2, No murmurs, Gallops Lungs: Clear Abdomen: Normal bowel sounds, Soft, No tenderness, No hepatosplenomegaly, No masses Extremities: No clubbing, No cyanosis, No edema, Normal pulses, No tenderness/ swelling Skin: No breakdown, No significant lesion Labs LABS Laboratory Tests Test 02/19/17 23:31 02/20/17 04:50 02/20/17 04:58 02/20/17 08:00 Glucose (Fingerstick) 137 mg/dL (70-99) 155 mg/dL (70-99) White Blood Count 36.3 x10^3/uL (4.0-11.0) Red Blood Count 2.48 x10^6/uL (3.50-5.40) Hemoglobin 8.0 g/dL (12.0-15.5) Hematocrit 23.8 % (36.0-47.0) Mean Corpuscular Volume 96 fL (79-100) Mean Corpuscular Hemoglobin 32 pg (25-35) Mean Corpuscular Hemoglobin Concent 34 g/dL (31-37) Red Cell Distribution Width 15.4 % (11.5-14.5) Platelet Count 183 x10^3/uL (140-400) Sodium Level 135 mmol/L (136-145) Potassium Level 4.0 mmol/L (3.5-5.1) Chloride Level 98 mmol/L (98-107) Carbon Dioxide Level 26 mmol/L (21-32) Anion Gap 11 (6-14) Blood Urea Nitrogen 78 mg/dL (7-20) Creatinine 4.0 mg/dL (0.6-1.0) Estimated GFR (Cockcroft-Gault) 14.1 Glucose Level 161 mg/dL (70-99) Calcium Level 8.2 mg/dL (8.5-10.1) Phosphorus Level 3.9 mg/dL (2.6-4.7) Albumin 1.9 g/dL (3.4-5.0) Procalcitonin 3.14 ng/mL (0.00-0.10) Random Vancomycin Level 21.0 mcg/mL O2 Saturation 97 % (92-99) Arterial Blood pH 7.39 (7.35-7.45) Arterial Blood pCO2 at Patient Temp 41 mmHg (35-46) Arterial Blood pO2 at Patient Temp 107 mmHg (75-108) Arterial Blood HCO3 24 mmol/L (21-28) Arterial Blood Base Excess -1 mmol/L (-3-3) FiO2 40 Review of Systems Review of Systems intuabted, non responsive Assessment and Plan Assessmemt and Plan Problems Medical Problems: (1) Cardiac arrest Status: Acute (2) Elevated troponin Status: Acute (3) Hyperkalemia Status: Acute (4) Hypoglycemia Status: Acute (5) Hyponatremia Status: Acute Problems: Comment Review of Relevant I have reviewed the following items reji (where applicable) has been applied. Labs Laboratory Tests Test 02/18/17 18:03 02/19/17 00:02 02/19/17 06:05 02/19/17 06:06 Glucose (Fingerstick) 142 mg/dL (70-99) 147 mg/dL (70-99) 126 mg/dL (70-99) White Blood Count 29.4 x10^3/uL (4.0-11.0) Red Blood Count 2.10 x10^6/uL (3.50-5.40) Hemoglobin 7.4 g/dL (12.0-15.5) Hematocrit 20.6 % (36.0-47.0) Mean Corpuscular Volume 98 fL (79-100) Mean Corpuscular Hemoglobin 35 pg (25-35) Mean Corpuscular Hemoglobin Concent 36 g/dL (31-37) Red Cell Distribution Width 14.4 % (11.5-14.5) Platelet Count 159 x10^3/uL (140-400) Neutrophils (%) (Auto) 96 % (31-73) Lymphocytes (%) (Auto) 2 % (24-48) Monocytes (%) (Auto) 2 % (0-9) Eosinophils (%) (Auto) 0 % (0-3) Basophils (%) (Auto) 0 % (0-3) Neutrophils # (Auto) 28.2 x10^3uL (1.8-7.7) Lymphocytes # (Auto) 0.6 x10^3/uL (1.0-4.8) Monocytes # (Auto) 0.5 x10^3/uL (0.0-1.1) Eosinophils # (Auto) 0.0 x10^3/uL (0.0-0.7) Basophils # (Auto) 0.0 x10^3/uL (0.0-0.2) Sodium Level 134 mmol/L (136-145) Potassium Level 3.8 mmol/L (3.5-5.1) Chloride Level 96 mmol/L (98-107) Carbon Dioxide Level 24 mmol/L (21-32) Anion Gap 14 (6-14) Blood Urea Nitrogen 88 mg/dL (7-20) Creatinine 5.1 mg/dL (0.6-1.0) Estimated GFR (Cockcroft-Gault) 10.7 Glucose Level 130 mg/dL (70-99) Calcium Level 8.1 mg/dL (8.5-10.1) Phosphorus Level 4.2 mg/dL (2.6-4.7) Albumin 1.9 g/dL (3.4-5.0) Test 02/19/17 07:25 02/19/17 23:31 02/20/17 04:50 02/20/17 04:58 O2 Saturation 98 % (92-99) Arterial Blood pH 7.38 (7.35-7.45) Arterial Blood pCO2 at Patient Temp 40 mmHg (35-46) Arterial Blood pO2 at Patient Temp 114 mmHg (75-108) Arterial Blood HCO3 23 mmol/L (21-28) Arterial Blood Base Excess -2 mmol/L (-3-3) FiO2 40 Glucose (Fingerstick) 137 mg/dL (70-99) 155 mg/dL (70-99) White Blood Count 36.3 x10^3/uL (4.0-11.0) Red Blood Count 2.48 x10^6/uL (3.50-5.40) Hemoglobin 8.0 g/dL (12.0-15.5) Hematocrit 23.8 % (36.0-47.0) Mean Corpuscular Volume 96 fL (79-100) Mean Corpuscular Hemoglobin 32 pg (25-35) Mean Corpuscular Hemoglobin Concent 34 g/dL (31-37) Red Cell Distribution Width 15.4 % (11.5-14.5) Platelet Count 183 x10^3/uL (140-400) Sodium Level 135 mmol/L (136-145) Potassium Level 4.0 mmol/L (3.5-5.1) Chloride Level 98 mmol/L (98-107) Carbon Dioxide Level 26 mmol/L (21-32) Anion Gap 11 (6-14) Blood Urea Nitrogen 78 mg/dL (7-20) Creatinine 4.0 mg/dL (0.6-1.0) Estimated GFR (Cockcroft-Gault) 14.1 Glucose Level 161 mg/dL (70-99) Calcium Level 8.2 mg/dL (8.5-10.1) Phosphorus Level 3.9 mg/dL (2.6-4.7) Albumin 1.9 g/dL (3.4-5.0) Procalcitonin 3.14 ng/mL (0.00-0.10) Random Vancomycin Level 21.0 mcg/mL Test 02/20/17 08:00 O2 Saturation 97 % (92-99) Arterial Blood pH 7.39 (7.35-7.45) Arterial Blood pCO2 at Patient Temp 41 mmHg (35-46) Arterial Blood pO2 at Patient Temp 107 mmHg (75-108) Arterial Blood HCO3 24 mmol/L (21-28) Arterial Blood Base Excess -1 mmol/L (-3-3) FiO2 40 Laboratory Tests Test 02/19/17 23:31 9/14/17 04:50 02/20/17 04:58 02/20/17 08:00 Glucose (Fingerstick) 137 mg/dL (70-99) 155 mg/dL (70-99) White Blood Count 36.3 x10^3/uL (4.0-11.0) Red Blood Count 2.48 x10^6/uL (3.50-5.40) Hemoglobin 8.0 g/dL (12.0-15.5) Hematocrit 23.8 % (36.0-47.0) Mean Corpuscular Volume 96 fL (79-100) Mean Corpuscular Hemoglobin 32 pg (25-35) Mean Corpuscular Hemoglobin Concent 34 g/dL (31-37) Red Cell Distribution Width 15.4 % (11.5-14.5) Platelet Count 183 x10^3/uL (140-400) Sodium Level 135 mmol/L (136-145) Potassium Level 4.0 mmol/L (3.5-5.1) Chloride Level 98 mmol/L (98-107) Carbon Dioxide Level 26 mmol/L (21-32) Anion Gap 11 (6-14) Blood Urea Nitrogen 78 mg/dL (7-20) Creatinine 4.0 mg/dL (0.6-1.0) Estimated GFR (Cockcroft-Gault) 14.1 Glucose Level 161 mg/dL (70-99) Calcium Level 8.2 mg/dL (8.5-10.1) Phosphorus Level 3.9 mg/dL (2.6-4.7) Albumin 1.9 g/dL (3.4-5.0) Procalcitonin 3.14 ng/mL (0.00-0.10) Random Vancomycin Level 21.0 mcg/mL O2 Saturation 97 % (92-99) Arterial Blood pH 7.39 (7.35-7.45) Arterial Blood pCO2 at Patient Temp 41 mmHg (35-46) Arterial Blood pO2 at Patient Temp 107 mmHg (75-108) Arterial Blood HCO3 24 mmol/L (21-28) Arterial Blood Base Excess -1 mmol/L (-3-3) FiO2 40 Microbiology 02/15/17 Blood Culture - Preliminary, Resulted NO GROWTH AFTER 4 DAYS 02/12/17 Urine Culture - Final, Complete 02/12/17 Urine Culture Result 1 (ELIZABETH) - Final, Complete Medications Current Medications Calcium Chloride 1,000 mg 1X ONCE IV Last administered on 02/12/17 15:35; Start 02/12/17 at 16:00; Stop 02/12/17 at 16:35; Status DC Dextrose (Dextrose 50%-Water Syringe) 25 gm 1X ONCE IV Last administered on 15:33; Start 02/12/17 at 16:00; Stop 02/12/17 at 16:35; Status DC Sodium Bicarbonate 50 meq 1X ONCE IV Last administered on 02/12/17 15:35; Start 02/12/17 at 16:00; Stop 02/12/17 at 16:35; Status DC Furosemide (Lasix) 40 mg 1X ONCE IVP Last administered on 02/12/17 16:42; Start 02/12/17 at 16:30; Stop 02/12/17 at 16:35; Status DC Sodium Chloride 1,000 ml @ 1,000 mls/hr Q1H IV Last administered on 02/12/17 15:50; Start 02/12/17 at 16:57; Stop 02/13/17 at 07:23; Status DC Fentanyl Citrate (Fentanyl 2ml Vial) 25 mcg PRN Q30MIN PRN IV SED; Start at 17:00 Lorazepam (Ativan) 1 mg PRN Q30MIN PRN IV SEDATION; Start 02/12/17 at 17:00 Fentanyl Citrate 30 ml @ 2.5 mls/hr CONT PRN PRN IV IVF Last administered on 03:27; Start 02/12/17 at 17:00 Propofol 100 ml @ 0 mls/hr CONT PRN IV SEE I/O RECORD; Start 02/12/17 at 17:00 Vecuronium [place] (Norcuron Bolus) DOSE AT 0.1 mg/kg PRN Q30MIN PRN IV SHIVERING Last administered on 02/12/17 19:46; Start 02/12/17 at 17:00; Stop 02/13 at 11:01; Status DC Meperidine HCl (Demerol) 12.5 mg PRN Q30MIN PRN IV SHIVERING; Start 02/12/17 at 17:00 Multi-Ingred Cream/Lotion/Oil/ Oint (Artificial Tears Eye Oint) 1 silvestre PRN Q6HRS PRN OU 0.5 INCH FOR DRY EYE; Start 02/12/17 at 17:00 Famotidine (Pepcid) 20 mg BID IVP Last administered on 02/14/17 10:47; Start at 09:00; Stop 02/14/17 at 16:23; Status DC Aspirin (Aspirin) 300 mg DAILY LA Last administered on 02/20/17 09:16; Start 02/13/17 at 09:00 Sodium Chloride (Normal Saline Flush) 3 ml QSHIFT PRN IV AFTER MEDS AND BLOOD DRAWS; Start 02/12/17 at 17:00 Acetaminophen (Tylenol) 650 mg Q6HRS NG Last administered on 02/13/17 05:51; Start 02/12/17 at 18:00; Stop 02/13/17 at 17:59; Status DC Acetaminophen (Acetaminophen Supp) 650 mg PRN Q6HRS PRN LA MILD PAIN / TEMP; Start 02/13/17 at 17:00 Acetaminophen (Tylenol) 650 mg PRN Q6HRS PRN NG MILD PAIN / TEMP; Start at 17:00 Info 1 ea DAILY PRN MC PER PROTOCOL; Start 02/14/17 at 17:00 Sodium Chloride 500 ml @ 500 mls/hr 1X ONCE IV Last administered on 02/12/17 16:30; Start 02/12/17 at 17:15; Stop 02/12/17 at 18:14; Status DC Sodium Chloride 500 ml @ 500 mls/hr 1X ONCE IV Last administered on 02/12/17 16:50; Start 02/12/17 at 17:15; Stop 02/12/17 at 18:14; Status DC Sodium Chloride 1,000 ml @ 100 mls/hr Q10H IV Last administered on 02/13/17 06 :36; Start 02/12/17 at 19:00; Stop 02/13/17 at 10:51; Status DC Famotidine (Pepcid) 20 mg 1X ONCE PO Last administered on 02/12/17 19:57; Start 02/12/17 at 17:30; Stop 02/12/17 at 17:34; Status DC Methylprednisolone Sodium Succinate (SOLU-Medrol 40MG VIAL) 100 mg TID IV Last administered on 02/14/17 11:01; Start 02/12/17 at 18:00; Stop 02/14/17 at 12:00; Status DC Sodium Chloride 1,000 ml @ 1,000 mls/hr 1X ONCE IV Last administered on 19:31; Start 02/12/17 at 18:15; Stop 02/12/17 at 19:14; Status DC Piperacillin Sod/ Tazobactam Sod (Zosyn Per Pharmacy) 1 each PRN DAILY PRN MC SEE COMMENTS; Start 02/12/17 at 19:15; Stop 02/18/17 at 07:22; Status DC Vancomycin HCl (Vanco Per Pharmacy) 1 each PRN DAILY PRN MC SEE COMMENTS Last administered on 02/13/17 16:50; Start 02/12/17 at 19:15; Stop 02/14/17 at 07:57; Status DC Piperacillin Sod/ Tazobactam Sod 3.375 gm/Sodium Chloride 50 ml @ 100 mls/hr Q6HRS IV Last administered on 02/15/17 05:58; Start 02/12/17 at 19:30; Stop 02/15 at 09:37; Status DC Vancomycin HCl 1 gm/Sodium Chloride 250 ml @ 250 mls/hr 1X ONCE IV Last administered on 02/12/17 20:00; Start 02/12/17 at 19:30; Stop 02/12/17 at 20:29; Status DC Sodium Bicarbonate 50 meq 1X ONCE IV Last administered on 02/12/17 19:59; Start 02/12/17 at 19:30; Stop 02/12/17 at 19:31; Status DC Norepinephrine Bitartrate 250 ml @ 0 mls/hr CONT PRN IV SEE I/O RECORD Last administered on 02/16/17 07:18; Start 02/12/17 at 19:30 Norepinephrine Bitartrate 250 ml @ As Directed STK-MED ONCE IV ; Start 02/12/17 at 19:25; Stop 02/12/17 at 19:26; Status DC Vancomycin HCl 750 mg/Sodium Chloride 250 ml @ 250 mls/hr Q24H IV Last administered on 02/13/17 20:34; Start 02/13/17 at 20:00; Stop 02/14/17 at 07:57; Status DC Vancomycin HCl 1 each 1X ONCE MC ; Start 02/14/17 at 19:30; Stop 02/14/17 at 19: 31; Status Cancel Sodium Chloride 1,000 ml @ 1,000 mls/hr 1X ONCE IV Last administered on 05:05; Start 02/13/17 at 04:45; Stop 02/13/17 at 05:44; Status DC Sodium Chloride 1,000 ml @ 1,000 mls/hr 1X ONCE IV Last administered on 05:35; Start 02/13/17 at 05:30; Stop 02/13/17 at 06:29; Status DC Magnesium Sulfate/ Dextrose 50 ml @ 25 mls/hr PRN DAILY PRN IV for Mag < 1.7 on am labs; Start 02/13/17 at 10:45 Dextrose/Sodium Chloride 1,000 ml @ 75 mls/hr [id number] IV Last administered on 02/15/17 01:52; Start 02/13/17 at 11:00; Stop 02/15/17 at 08:52; Status DC Vecuronium [place] (Norcuron Bolus) 5 mg PRN Q30MIN PRN IV SHIVERING; Start 02/13/17 at 11:15 Lidocaine/Sodium Bicarbonate (Buffered Lidocaine 1%) 3 ml 1X ONCE IJ Last administered on 02/13/17 11:40; Start 02/13/17 at 11:15; Stop 02/13/17 at 11:26; Status DC Heparin Sodium/ Sodium Chloride 60 unit 1X ONCE IV Last administered on 11:40; Start 02/13/17 at 11:15; Stop 02/13/17 at 11:26; Status DC Lidocaine/Sodium Bicarbonate (Buffered Lidocaine 1%) 20 ml STK-MED ONCE IJ ; Start 02/13/17 at 11:22; Stop 02/13/17 at 11:29; Status DC Heparin Sodium (Porcine) (Heparin Sodium) 2,075 unit 1X ONCE IV Last administered on 02/13/17 12:45; Start 02/13/17 at 11:45; Stop 02/13/17 at 11:56; Status DC Heparin Sodium/ Dextrose 500 ml @ 16.5 mls/hr CONT PRN IV SEE I/O RECORD Last administered on 02/13/17 12:47; Start 02/13/17 at 11:45; Stop 02/14/17 at 13:53; Status DC Heparin Sodium (Porcine) (Heparin Sodium) 1,550 unit PRN Q6HRS PRN IV FOR UFH LEVEL LESS THAN 0.2 Last administered on 02/13/17 20:22; Start 02/13/17 at 11:45 ; Stop 02/14/17 at 13:53; Status DC Heparin Sodium (Porcine) (Heparin Sodium) 800 unit PRN Q6HRS PRN IV FOR UFH LEVEL 0.2 - 0.29 Last administered on 02/14/17 02:34; Start 02/13/17 at 11:45; Stop 02/14/17 at 13:53; Status DC Warfarin Sodium (Coumadin Per Pharmacy) 1 each PRN DAILY PRN MC PER PROTOCOL; Start 02/13/17 at 11:45; Status Cancel Info (Anti-Coagulation Monitoring By Pharmacy) 1 each PRN DAILY PRN MC SEE COMMENTS; Start 02/13/17 at 13:00; Stop 02/14/17 at 16:28; Status DC Calcium Chloride 1,000 mg STK-MED ONCE IV ; Start 02/12/17 at 10:00; Stop at 16:27; Status DC Epinephrine HCl (EPINEPHrine SYRINGE) 1 mg STK-MED ONCE .ROUTE ; Start 02/12/17 at 10:00; Stop 02/13/17 at 16:27; Status DC Dextrose (Dextrose 50%-Water Syringe) 25 gm STK-MED ONCE IV ; Start 02/12/17 at 10:00; Stop 02/13/17 at 16:27; Status DC Sodium Bicarbonate 50 meq STK-MED ONCE .ROUTE ; Start 02/12/17 at 10:00; Stop 02/13/17 at 16:27; Status DC Methylprednisolone Sodium Succinate (SOLU-Medrol 125MG VIAL) 100 mg TID IV Last administered on 02/20/17 09:16; Start 02/14/17 at 18:00 Norepinephrine Bitartrate 250 ml @ 0 mls/hr CONT PRN IV SEE I/O RECORD; Start 02/14/17 at 15:30; Status Cancel Famotidine (Pepcid) 20 mg DAILY IVP Last administered on 02/20/17 09:16; Start 02/15/17 at 09:00 Amino Acids/ Glycerin/ Electrolytes 1,000 ml @ 80 mls/hr [id number] IV Last administered on 02/15/17 09:32; Start 02/15/17 at 08:45; Stop 02/15/17 at 15:14; Status DC Albumin Human 100 ml @ 100 mls/hr 1X ONCE IV Last administered on 02/15/17 09 :30; Start 02/15/17 at 08:45; Stop 02/15/17 at 09:44; Status DC Furosemide (Lasix) 40 mg 1X ONCE IVP ; Start 02/15/17 at 08:45; Stop 02/15/17 at 09:18; Status DC Piperacillin Sod/ Tazobactam Sod 2.25 gm/Sodium Chloride 50 ml @ 100 mls/hr Q6HRS IV Last administered on 02/16/17 05:52; Start 02/15/17 at 12:00; Stop 03/25 at 09:17; Status DC Daptomycin 340 mg/ Sodium Chloride 50 ml @ 100 mls/hr ONCE ONCE IV Last administered on 02/15/17 11:15; Start 02/15/17 at 11:15; Stop 02/15/17 at 11:44; Status DC Dextrose/Sodium Chloride 1,000 ml @ 40 mls/hr Q24H IV Last administered on 20:26; Start 02/15/17 at 15:15 Lidocaine/Sodium Bicarbonate (Buffered Lidocaine 1%) 3 ml 1X ONCE IJ Last administered on 02/15/17 16:00; Start 02/15/17 at 15:45; Stop 02/15/17 at 15:46; Status DC Heparin Sodium/ Sodium Chloride 6,000 unit 1X ONCE IV ; Start 02/15/17 at 15:45 ; Stop 02/15/17 at 15:46; Status DC Sodium Chloride 1,000 ml @ 1,000 mls/hr Q1H PRN IV hypotension; Start 02/16/17 at 06:38; Stop 02/16/17 at 12:37; Status DC Info (PHARMACY MONITORING -- do not chart) 1 each PRN DAILY PRN MC SEE COMMENTS ; Start 02/16/17 at 06:45 Info (PHARMACY MONITORING -- do not chart) 1 each PRN DAILY PRN MC SEE COMMENTS ; Start 02/16/17 at 06:45; Stop 02/16/17 at 09:19; Status DC Info (PHARMACY MONITORING -- do not chart) 1 each PRN DAILY PRN MC SEE COMMENTS ; Start 02/16/17 at 06:45; Stop 02/16/17 at 09:19; Status DC Albumin Human 100 ml @ 100 mls/hr 1X ONCE IV Last administered on 02/16/17 07:18; Start 02/16/17 at 07:00; Stop 02/16/17 at 07:59; Status DC Piperacillin Sod/ Tazobactam Sod 2.25 gm/Sodium Chloride 50 ml @ 100 mls/hr Q8HRS IV Last administered on 02/18/17 05:55; Start 02/16/17 at 14:00; Stop at 07:22; Status DC Daptomycin 340 mg/ Sodium Chloride 50 ml @ 100 mls/hr QODAY IV Last administered on 02/17/17 12:22; Start 02/17/17 at 09:00; Stop 02/18/17 at 07:22 ; Status DC Sodium Chloride 1,000 ml @ 1,000 mls/hr Q1H PRN IV hypotension; Start 02/17/17 at 08:30; Stop 02/17/17 at 16:00; Status DC Albumin Human 200 ml @ 200 mls/hr 1X PRN PRN IV Hypotension; Start 02/17/17 at 08:30; Stop 02/17/17 at 16:00; Status DC Sodium Chloride 1,000 ml @ 400 mls/hr Q2H30M PRN IV PATENCY; Start 02/17/17 at 08:30; Stop 02/17/17 at 16:00; Status DC Info (PHARMACY MONITORING -- do not chart) 1 each PRN DAILY PRN MC SEE COMMENTS ; Start 02/17/17 at 08:30; Status UNV Info (PHARMACY MONITORING -- do not chart) 1 each PRN DAILY PRN MC SEE COMMENTS ; Start 02/17/17 at 08:30; Status UNV Heparin Sodium (Porcine) (Heparin Sq) 5,000 unit Q8HRS SQ Last administered on 02/20/17 05:36; Start 02/17/17 at 14:00 Bisacodyl (Dulcolax Supp) 10 mg PRN DAILY PRN LA CONSTIPATION; Start 02/17/17 at 15:00 Polyethylene Glycol (miraLAX PACKET) 17 gm PRN DAILY PRN FT CONSTIPATION; Start 02/17/17 at 15:00 Levetiracetam 500 mg/Sodium Chloride 100 ml @ 400 mls/hr Q12HR IV Last administered on 02/20/17 09:16; Start 02/17/17 at 21:00 Vancomycin HCl (Vanco Per Pharmacy) 1 each PRN DAILY PRN MC SEE COMMENTS Last administered on 02/19/17 09:30; Start 02/18/17 at 07:30 Vancomycin HCl 1.5 gm/Sodium Chloride 500 ml @ 250 mls/hr 1X ONCE IV Last administered on 02/18/17 14:43; Start 02/18/17 at 14:30; Stop 02/18/17 at 16:29 ; Status DC Vancomycin HCl 1 each 1X ONCE MC Last administered on 02/20/17 05:00; Start 02/20/17 at 05:00; Stop 02/20/17 at 05:01; Status DC Sodium Chloride 1,000 ml @ 1,000 mls/hr Q1H PRN IV hypotension; Start 02/19/17 at 09:08; Stop 02/19/17 at 15:07; Status DC Albumin Human 200 ml @ 200 mls/hr 1X PRN PRN IV Hypotension; Start 02/19/17 at 09:15; Stop 02/19/17 at 15:14; Status DC Sodium Chloride 1,000 ml @ 400 mls/hr Q2H30M PRN IV PATENCY; Start 02/19/17 at 09:08; Stop 02/19/17 at 21:07; Status DC Info (PHARMACY MONITORING -- do not chart) 1 each PRN DAILY PRN MC SEE COMMENTS ; Start 02/19/17 at 09:15; Stop 02/19/17 at 09:17; Status DC Info (PHARMACY MONITORING -- do not chart) 1 each PRN DAILY PRN MC SEE COMMENTS ; Start 02/19/17 at 09:15 Active Scripts Active Reported Latuda (Lurasidone Hcl) 20 Mg Tablet 20 Mg PO AFTRNOON Remeron (Mirtazapine) 15 Mg Tablet 1 Tab PO QHS Oxybutynin Chloride Er (Oxybutynin Chloride) 10 Mg Tab.er.24 1 Tab PO DAILY Multivitamins (Multivitamin) 1 Each Tablet 1 Tab PO DAILY Latuda (Lurasidone Hcl) 20 Mg Tablet 10 Mg PO AFTRNOON Lorazepam 0.5 Mg Tablet 1 Tab PO QEVNG Duoneb 0.5-3(2.5) Mg/3 Ml (Albuterol/Ipratropium) 3 Ml Ampul.neb 3 Ml NEB BID Duoneb 0.5-3(2.5) Mg/3 Ml (Albuterol/Ipratropium) 3 Ml Ampul.neb 3 Ml NEB Q4H PRN Calcium Carbonate 500 Mg Tablet 1,000 Mg PO Q4HRS PRN Nicotine Gum (Nicotine Polacrilex) 4 Mg Gum 4 Mg BC Milk Of Magnesia (Magnesium Hydroxide) 400 Mg/5 Ml Oral.susp 400 Mg PO Q3DAYS PRN Milk Of Magnesia (Magnesium Hydroxide) 400 Mg/5 Ml Oral.susp 400 Mg PO Q3DAYS PRN Lorazepam 1 Mg Tablet 1 Tab PO Q12HR PRN Ibuprofen 400 Mg Tablet 200 Mg PO Q8HRS PRN Cough Drops (Eucalyptus Oil/Menthol) 7 Mg Lozenge 7 Mg MM Q4HRS PRN Tylenol (Acetaminophen) 325 Mg Tablet 650 Mg PO Q4HRS PRN Lovaza ([place]-3 Acid Ethyl Esters) 1 Gm Capsule 1 Cap PO QID Gabapentin 400 Mg Capsule 400 Mg PO QID Lorazepam 1 Mg Tablet 1 Tab PO BID Latuda (Lurasidone Hcl) 60 Mg Tablet 60 Mg PO BID Advair 100-50 Diskus (Fluticasone/Salmeterol) 1 Each Disk.w.dev 1 Puff IH BID Acetaminophen 325 Mg Capsule 650 Mg PO BID Vitamin D (Cholecalciferol (Vitamin D3)) 2,000 Unit Capsule 800 Unit PO DAILY Vitals/I & O Vital Sign - Last 24 Hours 02/19/17 02/19/17 02/19/17 02/19/17 11:00 11:13 12:00 12:00 Temp 97.6 97.6 Pulse 122 113 Resp 30 30 B/P (MAP) 95/60 (72) 129/59 (82) Pulse Ox 100 100 100 O2 Delivery Ventilator Ventilator Ventilator Mechanical Ventilator 02/19/17 02/19/17 02/19/17 02/19/17 13:00 13:00 14:00 15:00 Pulse 106 102 105 Resp 30 30 30 B/P (MAP) 137/72 (93) 139/82 (101) 128/71 (90) Pulse Ox 100 100 100 100 O2 Delivery Ventilator Ventilator Ventilator Ventilator 02/19/17 02/19/17 02/19/17 02/19/17 15:16 16:00 16:00 16:45 Temp 98.5 98.1 98.5 98.1 Pulse 103 98 Resp 30 18 B/P (MAP) 128/74 (92) 147/71 Pulse Ox 100 100 O2 Delivery Ventilator Ventilator Mechanical Ventilator 02/19/17 02/19/17 02/19/17 02/19/17 16:55 17:00 17:00 18:00 Temp 98.2 98.2 Pulse 87 81 87 Resp 30 22 30 B/P (MAP) 132/77 (95) 139/78 141/86 (104) Pulse Ox 100 100 100 O2 Delivery Ventilator Ventilator Ventilator 02/19/17 02/19/17 02/19/17 02/19/17 19:00 19:40 20:00 20:00 Temp 100.1 100.1 Pulse 82 83 Resp 30 30 B/P (MAP) 158/86 (110) 141/83 (102) Pulse Ox 100 100 100 O2 Delivery Ventilator Ventilator Mechanical Ventilator Ventilator 02/19/17 02/19/17 02/19/17 02/19/17 21:00 21:30 22:00 23:00 Pulse 87 86 85 Resp 30 30 30 B/P (MAP) 151/86 (107) 147/79 (101) 152/78 (102) Pulse Ox 100 100 100 100 O2 Delivery Ventilator Ventilator Ventilator Ventilator 02/19/17 02/19/17 02/19/17 02/20/17 23:20 23:59 23:59 01:00 Temp 99.1 99.1 Pulse 90 88 Resp 30 30 B/P (MAP) 153/85 (107) 149/80 (103) Pulse Ox 100 100 100 O2 Delivery Ventilator Ventilator Mechanical Ventilator Ventilator 02/20/17 02/20/17 02/20/17 02/20/17 01:05 02:00 03:00 03:20 Pulse 90 82 Resp 30 30 B/P (MAP) 144/80 (101) 142/84 (103) Pulse Ox 100 100 100 100 O2 Delivery Ventilator Ventilator Ventilator Ventilator 02/20/17 02/20/17 02/20/17 02/20/17 04:00 04:00 05:00 05:10 Temp 99.9 99.9 Pulse 88 90 Resp 30 30 B/P (MAP) 147/85 (105) 153/90 (111) Pulse Ox 100 100 100 O2 Delivery Ventilator Mechanical Ventilator Ventilator Ventilator 02/20/17 02/20/17 02/20/17 02/20/17 06:00 07:00 07:32 09:10 Pulse 89 92 Resp 30 30 B/P (MAP) 159/92 (114) 146/87 (106) Pulse Ox 100 100 100 100 O2 Delivery Ventilator Ventilator Ventilator Ventilator BERONICA VILLATORO MD Feb 20, 2017 10:33
--- NOTE | 2017-02-20 11:27 | PDOC ---
Renal-Progress Notes Subjective Notes Notes NO CHANGE History of Present Illness Hx of present illness SAME Vitals Vitals Vital Signs Date Time Temp Pulse Resp B/P (MAP) Pulse Ox O2 Delivery O2 Flow Rate FiO2 02/20/17 09:10 100 Ventilator 02/20/17 07:00 92 30 146/87 (106) 02/20/17 04:00 99.9 99.9 Weight Weight [ ] I.O. Intake and Output Intake and Output 02/21/17 07:00 Intake Total 0 ml Balance 0 ml Tube Feeding 0 ml Labs Labs Laboratory Tests Test 02/19/17 23:31 02/20/17 04:50 02/20/17 04:58 02/20/17 08:00 Glucose (Fingerstick) 137 mg/dL (70-99) 155 mg/dL (70-99) White Blood Count 36.3 x10^3/uL (4.0-11.0) Red Blood Count 2.48 x10^6/uL (3.50-5.40) Hemoglobin 8.0 g/dL (12.0-15.5) Hematocrit 23.8 % (36.0-47.0) Mean Corpuscular Volume 96 fL (79-100) Mean Corpuscular Hemoglobin 32 pg (25-35) Mean Corpuscular Hemoglobin Concent 34 g/dL (31-37) Red Cell Distribution Width 15.4 % (11.5-14.5) Platelet Count 183 x10^3/uL (140-400) Sodium Level 135 mmol/L (136-145) Potassium Level 4.0 mmol/L (3.5-5.1) Chloride Level 98 mmol/L (98-107) Carbon Dioxide Level 26 mmol/L (21-32) Anion Gap 11 (6-14) Blood Urea Nitrogen 78 mg/dL (7-20) Creatinine 4.0 mg/dL (0.6-1.0) Estimated GFR (Cockcroft-Gault) 14.1 Glucose Level 161 mg/dL (70-99) Calcium Level 8.2 mg/dL (8.5-10.1) Phosphorus Level 3.9 mg/dL (2.6-4.7) Albumin 1.9 g/dL (3.4-5.0) Procalcitonin 3.14 ng/mL (0.00-0.10) Random Vancomycin Level 21.0 mcg/mL O2 Saturation 97 % (92-99) Arterial Blood pH 7.39 (7.35-7.45) Arterial Blood pCO2 at Patient Temp 41 mmHg (35-46) Arterial Blood pO2 at Patient Temp 107 mmHg (75-108) Arterial Blood HCO3 24 mmol/L (21-28) Arterial Blood Base Excess -1 mmol/L (-3-3) FiO2 40 Micro Micro Microbiology 02/15/17 Blood Culture - Preliminary, Resulted NO GROWTH AFTER 4 DAYS 02/12/17 Urine Culture - Final, Complete 02/12/17 Urine Culture Result 1 (ELIZABETH) - Final, Complete Review of Systems Constitutional: yes: no symptom reported Physical Exam General Appearance: no apparent distress Skin: warm Respiratory: decreased breath sounds Heart: S1S2, RRR Abdomen: soft Genitourinary: bladder flat Extremities: pulses present, atrophy Neurology: other (unresponsive) Musculoskeletal: Other (costochondritis) Assessment Assessment IMP DARYA-ANURIA RESP FAILURE S/P CARDIAC ARREST SEPSIS ANOXIC ENCEPHALOPATHY PLAN HD TOMORROW PRESSORS NEEDED ANTIBIOTICS CONT TF SUPPORTIVE CARE POOR PROGNOSIS ADRIAN BRIGGS MD Feb 20, 2017 11:27
[2017-02-20] MEDS: VANCOMYCIN PER PHARMACY MC PRN (12:40)
--- NOTE | 2017-02-20 15:01 | PDOC2 ---
PALLIATIVE CARE Palliative Care Note Palliative Care Patient remains on Vent 40%. RR 30. Unresponsive. Off sedation since 2016. Documentation to petition court prepared and being sent to Drew Hernandez-- Legal Guardian. No urine output today. ARABELLA COLEMAN Feb 20, 2017 15:01
--- NOTE | 2017-02-20 15:18 | PDOC ---
PROGRESS NOTES Assessment Assessment S/p cardiac pulmonary arrest received hypothermia, CPR 20 minutes. Anoxic encephalopathy. Metabolic encephalopathy. Respiratory failure. Pulmonary infiltrate. Renal failure. Multi-organ failure. Sepsis. Lactic acidosis. Leukocytosis. HTN HLD COPD Anemia HCV, Hx ? EEG on 02/17/17: Abnormal. PLEDs. Sharp waves. Slowing. HCT on 02/12 and 02/19: Unremarkable. RECOMMENDATIONS/PLAN: Palliative care suggested. Poor prognosis. Past Medical History Cardiovascular: HTN, Hyperlipidemia Pulmonary: COPD GI: Constipation, Other (anorexia) Hepatobiliary: Hep A/B/C (C) Psych: Anxiety, Addictions, Depression, Schizophrenia Musculoskeletal: Other (costochondritis) Past Surgical History Past Surgical History: Cataract Removal Family History Family History: No pertinent hx Social History Social History intermediate resident, has a court appointed power of registered art therapist but does not have healthcare decision-making velazquez. ALLERGY: Reviewed. MEDICATIONS: Refer to MAR REVIEW OF SYSTEMS: Constitutional: No malnutrition, cachexia. Head: No recent traumatic brain or head injury. Skin: No edema, or rash. Ear: No infection. Eyes: No vision loss, or diplopia. Nose: No bleeding or purulent discharges. Hearing: No hearing decrease. Neck: No injury. Breast: No history of cancer, masses, or discharges. Cardiac: HTN, HLD Pulmonary: CPOD. GI: No GI Ulcer, GI bleeding Urinary/genital: UTI. Endocrine: [id number]. Skeletomuscular: No muscular atrophy. Neurological: see HP. Psychiatric: Denies drug use/abuse. Otherwise, not [id number] review of systems. PHYSICAL EXAMINATION: General appearance in subacute distress. HEENT: Normocephalic and nontraumatic. Eyes, nose, ears, and throat are unremarkable. Neck is supple. No lymphadenopathy. No bruits are heard over the carotid artery. Cardiovascular: S1, S2, seemed regular rate and rhythm. Pulmonary: On vent. Abdomen: Bowel sounds are positive. Extremities: No rash, lesions. NEUROLOGICAL EXAMINATION: On vent. Unresponsive. No sedation since 02/14/17. Not oriented to time, place and person. PERRL. EOMI not elicited. CN: no acute focal findings. Muscle tone: decreased. Muscle strength: no obvious spontaneous movements observed. DTR: 1 Plantar reflex: No response bilaterally Gait: Unable to walk. Sensory exam: Minimal response to painful stimuli. Not able to access cerebellar signs. Not able to perform F-T-N test in coma. Objective Objective Vital Signs Date Time Temp Pulse Resp B/P (MAP) Pulse Ox O2 Delivery O2 Flow Rate FiO2 02/20/17 15:00 97 30 159/81 (107) 100 Ventilator 02/20/17 12:00 98.6 98.6 Intake and Output 02/21/17 07:00 Intake Total 0 ml Balance 0 ml Tube Feeding 0 ml Vitals Signs Vitals VS - Last 72 Hours, by Label Date Time Temp Pulse Resp B/P (MAP) Pulse Ox O2 Delivery O2 Flow Rate FiO2 02/20/17 15:00 97 30 159/81 (107) 100 Ventilator 02/20/17 14:00 94 36 154/83 (106) 100 Ventilator 02/20/17 13:00 88 30 158/85 (109) 100 Ventilator 02/20/17 12:50 100 Ventilator 02/20/17 12:00 Mechanical Ventilator 02/20/17 12:00 98.6 88 30 145/87 (106) 100 Ventilator 98.6 02/20/17 11:32 100 Ventilator 02/20/17 11:00 86 30 151/94 (113) 100 Ventilator 02/20/17 10:00 88 30 143/83 (103) 100 Ventilator 02/20/17 09:10 100 Ventilator 02/20/17 09:00 88 30 148/89 (108) 100 Ventilator 02/20/17 08:00 Mechanical Ventilator 02/20/17 08:00 98.8 90 30 150/89 (109) 100 Ventilator 98.8 02/20/17 07:32 100 Ventilator 02/20/17 07:00 92 30 146/87 (106) 100 Ventilator 02/20/17 06:00 89 30 159/92 (114) 100 Ventilator 02/20/17 05:10 100 Ventilator 02/20/17 05:00 90 30 153/90 (111) 100 Ventilator 02/20/17 04:00 Mechanical Ventilator 02/20/17 04:00 99.9 88 30 147/85 (105) 100 Ventilator 99.9 02/20/17 03:20 100 Ventilator 02/20/17 03:00 82 30 142/84 (103) 100 Ventilator 02/20/17 02:00 90 30 144/80 (101) 100 Ventilator 02/20/17 01:05 100 Ventilator 02/20/17 01:00 88 30 149/80 (103) 100 Ventilator 02/19/17 23:59 Mechanical Ventilator 02/19/17 23:59 99.1 90 30 153/85 (107) 100 Ventilator 99.1 02/19/17 23:20 100 Ventilator 02/19/17 23:00 85 30 152/78 (102) 100 Ventilator 02/19/17 22:00 86 30 147/79 (101) 100 Ventilator 02/19/17 21:30 100 Ventilator 02/19/17 21:00 87 30 151/86 (107) 100 Ventilator 02/19/17 20:00 100.1 83 30 141/83 (102) 100 Ventilator 100.1 02/19/17 20:00 Mechanical Ventilator 02/19/17 19:40 100 Ventilator 02/19/17 19:00 82 30 158/86 (110) 100 Ventilator 02/19/17 18:00 87 30 141/86 (104) 100 Ventilator 02/19/17 17:00 98.2 81 22 139/78 98.2 02/19/17 17:00 87 30 132/77 (95) 100 Ventilator 02/19/17 16:55 100 Ventilator 02/19/17 16:45 98.1 98 18 147/71 98.1 02/19/17 16:00 Mechanical Ventilator 02/19/17 16:00 98.5 103 30 128/74 (92) 100 Ventilator 98.5 02/19/17 15:16 100 Ventilator 02/19/17 15:00 105 30 128/71 (90) 100 Ventilator 02/19/17 14:00 102 30 139/82 (101) 100 Ventilator 02/19/17 13:00 106 30 137/72 (93) 100 Ventilator 02/19/17 13:00 100 Ventilator 02/19/17 12:00 Mechanical Ventilator 02/19/17 12:00 113 30 129/59 (82) 100 Ventilator 02/19/17 11:13 100 Ventilator 02/19/17 11:00 97.6 122 30 95/60 (72) 100 Ventilator 97.6 02/19/17 10:00 122 30 119/70 (86) 100 Ventilator 02/19/17 09:10 100 Ventilator 02/19/17 09:00 100 30 163/78 (106) 100 Ventilator 02/19/17 08:00 Mechanical Ventilator 02/19/17 08:00 98.6 97 30 138/79 (98) 100 Ventilator 98.6 02/19/17 07:19 100 Ventilator 02/19/17 07:00 92 30 145/80 (101) 100 Ventilator Laboratory Laboratory Laboratory Tests Test 02/19/17 23:31 02/20/17 04:50 02/20/17 04:58 02/20/17 08:00 Glucose (Fingerstick) 137 mg/dL (70-99) 155 mg/dL (70-99) White Blood Count 36.3 x10^3/uL (4.0-11.0) Red Blood Count 2.48 x10^6/uL (3.50-5.40) Hemoglobin 8.0 g/dL (12.0-15.5) Hematocrit 23.8 % (36.0-47.0) Mean Corpuscular Volume 96 fL (79-100) Mean Corpuscular Hemoglobin 32 pg (25-35) Mean Corpuscular Hemoglobin Concent 34 g/dL (31-37) Red Cell Distribution Width 15.4 % (11.5-14.5) Platelet Count 183 x10^3/uL (140-400) Sodium Level 135 mmol/L (136-145) Potassium Level 4.0 mmol/L (3.5-5.1) Chloride Level 98 mmol/L (98-107) Carbon Dioxide Level 26 mmol/L (21-32) Anion Gap 11 (6-14) Blood Urea Nitrogen 78 mg/dL (7-20) Creatinine 4.0 mg/dL (0.6-1.0) Estimated GFR (Cockcroft-Gault) 14.1 Glucose Level 161 mg/dL (70-99) Calcium Level 8.2 mg/dL (8.5-10.1) Phosphorus Level 3.9 mg/dL (2.6-4.7) Albumin 1.9 g/dL (3.4-5.0) Procalcitonin 3.14 ng/mL (0.00-0.10) Random Vancomycin Level 21.0 mcg/mL O2 Saturation 97 % (92-99) Arterial Blood pH 7.39 (7.35-7.45) Arterial Blood pCO2 at Patient Temp 41 mmHg (35-46) Arterial Blood pO2 at Patient Temp 107 mmHg (75-108) Arterial Blood HCO3 24 mmol/L (21-28) Arterial Blood Base Excess -1 mmol/L (-3-3) FiO2 40 Test 02/20/17 12:19 Glucose (Fingerstick) 141 mg/dL (70-99) Microbiology 02/15/17 Blood Culture - Final, Complete NO GROWTH AFTER 5 DAYS 02/12/17 Urine Culture - Final, Complete 02/12/17 Urine Culture Result 1 (ELIZABETH) - Final, Complete Medication Medications Current Medications Vancomycin HCl 1 each 1X ONCE MC Last administered on 02/20/17t 05:00; Start 02/20/17 at 05:00; Stop 02/20/17 at 05:01; Status DC Vancomycin HCl 500 mg/Sodium Chloride 100 ml @ 100 mls/hr QMWF IV ; Start 02/21 at 16:00 Comment Review of Relevant I have reviewed the following items reji (where applicable) has been applied. YSAMINE BERNAL MD Feb 20, 2017 15:18
[2017-02-20] MEDS: IV DEXTROSE 5 %-0.2 % NACL 1,000 ML IV SCH (21:31)
[2017-02-21] VITALS (23 sets, daily range): BP systolic 91–167; BP diastolic 62–95
[2017-02-21] MEDS: HEPARIN PF for SUB-Q USE 5,000 UNIT/0.5 ML VIAL. SQ SCH ×3 (06:04→21:20)
--- NOTE | 2017-02-21 07:51 | PDOC ---
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 ? Pain withdrawl SKIN: No rash RIJ. (02/13). clean [facility]. (02/15) Labs Lab Laboratory Tests Test 02/20/17 08:00 02/20/17 12:19 02/20/17 16:04 02/20/17 23:44 O2 Saturation 97 % (92-99) Arterial Blood pH 7.39 (7.35-7.45) Arterial Blood pCO2 at Patient Temp 41 mmHg (35-46) Arterial Blood pO2 at Patient Temp 107 mmHg (75-108) Arterial Blood HCO3 24 mmol/L (21-28) Arterial Blood Base Excess -1 mmol/L (-3-3) FiO2 40 Glucose (Fingerstick) 141 mg/dL (70-99) 155 mg/dL (70-99) 144 mg/dL (70-99) Test 02/21/17 06:18 Glucose (Fingerstick) 159 mg/dL (70-99) Objective Assessment Fever - better - procalcitonin mild elevation MRSA sepsis/bacteremia, POA. 02/12. -TTE no evidence veg; Repeat BC from 02/15 neg Anemia Encephalopathy - nonresponsive S/P Cardiac arrest Respiratory failure COPD Leukocytosis - on high dose steroids DARYA. Now on HD Schizophrenia Plan Plan of Care F/u temps - improved for now Cont Vanc Await court decision Needs DNR/DNI Needs palliative extubation as overall prognosis is poor Critically ill JAVIER HUGHES MD Feb 21, 2017 07:51
[2017-02-21 07:57] LABS: HCO3 ABG 24 mmol/L (21-28); PCO2 ABG 45 mmHg (35-46); PH ABG 7.35 (7.35-7.45); PO2 ABG 100 mmHg (75-108); SAT O2 ABG 96 % (92-99)
[2017-02-21 08:06] LABS: FIO2 ABG 40
[2017-02-21] MEDS ORDERED: IV NORMAL SALINE 1000ML BAG 1,000 ML IV PRN ×2 (08:14)
[2017-02-21] MEDS ORDERED: diphenhydrAMINE 50 MG/ML VIAL IV PRN ×2 (08:15)
[2017-02-21] MEDS ORDERED: DIALYSIS PATIENT. MC PRN (08:15)
[2017-02-21] MEDS ORDERED: 0.9 % SODIUM CHLORIDE 10 ML DISP.SYRIN. IV PRN ×2 (08:15)
--- NOTE | 2017-02-21 08:44 | RAD ---
Indication respiratory failure. A single view of the chest was obtained and is compared to an exam 3 days earlier. Interstitial prominence in the lungs persists. Some of this may represent chronic changes of fibrosis. Superimposed infection or edema are not excluded. The appearance is similar to the previous exam. A consolidated pneumonia is not seen. There may be tiny pleural effusions. A right IJ catheter and a left-sided dialysis catheter are noted. Endotracheal tube is appropriately positioned above the ernst. A nasogastric tube has its tip at the GE junction and should be advanced. IMPRESSION: No significant change in the chest. No acute finding in the chest. Nasogastric tube with its tip at the GE junction. The tube should be advanced.
--- NOTE | 2017-02-21 08:46 | RAD ---
Indication abdominal distention. A single KUB was obtained. No prior imaging of the abdomen is available. There is gas in the stomach and perhaps a small amount of gas in the large bowel but the abdomen, for the most part, is gasless. There is some increased density within the abdomen. Ascites is not excluded. A nasogastric tube is noted with its tip at the GE junction. IMPRESSION: The abdomen is largely gasless. Possible ascites. NG tube with its tip at the GE junction. The tube should be advanced.
--- NOTE | 2017-02-21 10:08 | PDOC ---
Renal-Progress Notes Subjective Notes Notes REMAINS ON VENT History of Present Illness Hx of present illness NO CHANGE Vitals Vitals Vital Signs Date Time Temp Pulse Resp B/P (MAP) Pulse Ox O2 Delivery O2 Flow Rate FiO2 02/21/17 07:40 100 Ventilator 02/21/17 07:00 100 30 167/88 (114) 02/21/17 04:00 99.1 99.1 Weight Weight [ ] Labs Labs Laboratory Tests Test 02/20/17 12:19 02/20/17 16:04 02/20/17 23:44 02/21/17 06:18 Glucose (Fingerstick) 141 mg/dL (70-99) 155 mg/dL (70-99) 144 mg/dL (70-99) 159 mg/dL (70-99) Test 02/21/17 07:45 O2 Saturation 96 % (92-99) Arterial Blood pH 7.35 (7.35-7.45) Arterial Blood pCO2 at Patient Temp 45 mmHg (35-46) Arterial Blood pO2 at Patient Temp 100 mmHg (75-108) Arterial Blood HCO3 24 mmol/L (21-28) Arterial Blood Base Excess -2 mmol/L (-3-3) FiO2 40 Micro Micro Microbiology 02/15/17 Blood Culture - Final, Complete NO GROWTH AFTER 5 DAYS 02/12/17 Urine Culture - Final, Complete 02/12/17 Urine Culture Result 1 (ELIZABETH) - Final, Complete Review of Systems Constitutional: yes: no symptom reported Physical Exam General Appearance: no apparent distress Skin: warm Respiratory: decreased breath sounds Heart: S1S2, RRR Abdomen: soft Genitourinary: bladder flat Extremities: pulses present, atrophy Neurology: other (unresponsive) Musculoskeletal: Other (costochondritis) Assessment Assessment IMP DARYA-ANURIA RESP FAILURE S/P CARDIAC ARREST SEPSIS ANOXIC ENCEPHALOPATHY PLAN HD TODAY UF TO DW PRESSORS NEEDED ANTIBIOTICS CONT TF SUPPORTIVE CARE POOR PROGNOSIS ADRIAN BRIGGS MD Feb 21, 2017 10:08
--- NOTE | 2017-02-21 10:18 | PDOC ---
PULMONARY PROGRESS NOTES Subjective REMAINS INTUBATED OFF SEDATION 02/15 OPENS EYES TO DEEP STERNAL RUB Vitals Vital Signs Date Time Temp Pulse Resp B/P (MAP) Pulse Ox O2 Delivery O2 Flow Rate FiO2 02/21/17 07:40 100 Ventilator 02/21/17 07:00 100 30 167/88 (114) 02/21/17 04:00 99.1 99.1 Lungs: Clear Cardiovascular: S1, S2 Abdomen: Soft Extremities: No Edema Skin: Warm, Dry Labs Laboratory Tests Test 02/19/17 23:31 02/20/17 04:50 02/20/17 04:58 02/20/17 08:00 Glucose (Fingerstick) 137 mg/dL (70-99) 155 mg/dL (70-99) White Blood Count 36.3 x10^3/uL (4.0-11.0) Red Blood Count 2.48 x10^6/uL (3.50-5.40) Hemoglobin 8.0 g/dL (12.0-15.5) Hematocrit 23.8 % (36.0-47.0) Mean Corpuscular Volume 96 fL (79-100) Mean Corpuscular Hemoglobin 32 pg (25-35) Mean Corpuscular Hemoglobin Concent 34 g/dL (31-37) Red Cell Distribution Width 15.4 % (11.5-14.5) Platelet Count 183 x10^3/uL (140-400) Sodium Level 135 mmol/L (136-145) Potassium Level 4.0 mmol/L (3.5-5.1) Chloride Level 98 mmol/L (98-107) Carbon Dioxide Level 26 mmol/L (21-32) Anion Gap 11 (6-14) Blood Urea Nitrogen 78 mg/dL (7-20) Creatinine 4.0 mg/dL (0.6-1.0) Estimated GFR (Cockcroft-Gault) 14.1 Glucose Level 161 mg/dL (70-99) Calcium Level 8.2 mg/dL (8.5-10.1) Phosphorus Level 3.9 mg/dL (2.6-4.7) Albumin 1.9 g/dL (3.4-5.0) Procalcitonin 3.14 ng/mL (0.00-0.10) Random Vancomycin Level 21.0 mcg/mL O2 Saturation 97 % (92-99) Arterial Blood pH 7.39 (7.35-7.45) Arterial Blood pCO2 at Patient Temp 41 mmHg (35-46) Arterial Blood pO2 at Patient Temp 107 mmHg (75-108) Arterial Blood HCO3 24 mmol/L (21-28) Arterial Blood Base Excess -1 mmol/L (-3-3) FiO2 40 Test 02/20/17 12:19 02/20/17 16:04 02/20/17 23:44 02/21/17 06:18 Glucose (Fingerstick) 141 mg/dL (70-99) 155 mg/dL (70-99) 144 mg/dL (70-99) 159 mg/dL (70-99) Test 02/21/17 07:45 O2 Saturation 96 % (92-99) Arterial Blood pH 7.35 (7.35-7.45) Arterial Blood pCO2 at Patient Temp 45 mmHg (35-46) Arterial Blood pO2 at Patient Temp 100 mmHg (75-108) Arterial Blood HCO3 24 mmol/L (21-28) Arterial Blood Base Excess -2 mmol/L (-3-3) FiO2 40 Laboratory Tests Test 02/20/17 12:19 02/20/17 16:04 02/20/17 23:44 02/21/17 06:18 Glucose (Fingerstick) 141 mg/dL (70-99) 155 mg/dL (70-99) 144 mg/dL (70-99) 159 mg/dL (70-99) Test 02/21/17 07:45 O2 Saturation 96 % (92-99) Arterial Blood pH 7.35 (7.35-7.45) Arterial Blood pCO2 at Patient Temp 45 mmHg (35-46) Arterial Blood pO2 at Patient Temp 100 mmHg (75-108) Arterial Blood HCO3 24 mmol/L (21-28) Arterial Blood Base Excess -2 mmol/L (-3-3) FiO2 40 Medications Active Scripts Medications Dose Route/Sig Max Daily Dose Days Date Category Latuda (Lurasidone Hcl) 20 Mg Tablet 20 Mg PO AFTRNOON 02/12/17 Reported Remeron (Mirtazapine) 15 Mg Tablet 1 Tab PO QHS 02/12/17 Reported Oxybutynin Chloride Er (Oxybutynin Chloride) 10 Mg Tab.er.24 1 Tab PO DAILY 02/12/17 Reported Multivitamins (Multivitamin) 1 Each Tablet 1 Tab PO DAILY 02/12/17 Reported Latuda (Lurasidone Hcl) 20 Mg Tablet 10 Mg PO AFTRNOON 02/12/17 Reported Lorazepam 0.5 Mg Tablet 1 Tab PO QEVNG 02/12/17 Reported Duoneb 0.5-3(2.5) Mg/3 Ml (Albuterol/Ipratropium) 3 Ml Ampul.neb 3 Ml NEB BID 02/12/17 Reported Duoneb 0.5-3(2.5) Mg/3 Ml (Albuterol/Ipratropium) 3 Ml Ampul.neb 3 Ml NEB Q4H PRN 02/12/17 Reported Calcium Carbonate 500 Mg Tablet 1,000 Mg PO Q4HRS PRN 02/12/17 Reported Nicotine Gum (Nicotine Polacrilex) 4 Mg Gum 4 Mg BC 02/12/17 Reported Milk Of Magnesia (Magnesium Hydroxide) 400 Mg/5 Ml Oral.susp 400 Mg PO Q3DAYS PRN 02/12/17 Reported Milk Of Magnesia (Magnesium Hydroxide) 400 Mg/5 Ml Oral.susp 400 Mg PO Q3DAYS PRN 02/12/17 Reported Lorazepam 1 Mg Tablet 1 Tab PO Q12HR PRN 02/12/17 Reported Ibuprofen 400 Mg Tablet 200 Mg PO Q8HRS PRN 02/12/17 Reported Cough Drops (Eucalyptus Oil/Menthol) 7 Mg Lozenge 7 Mg MM Q4HRS PRN 02/12/17 Reported Tylenol (Acetaminophen) 325 Mg Tablet 650 Mg PO Q4HRS PRN 02/12/17 Reported Lovaza (Hamilton-3 Acid Ethyl Esters) 1 Gm Capsule 1 Cap PO QID 02/12/17 Reported Gabapentin 400 Mg Capsule 400 Mg PO QID 02/12/17 Reported Lorazepam 1 Mg Tablet 1 Tab PO BID 02/12/17 Reported Latuda (Lurasidone Hcl) 60 Mg Tablet 60 Mg PO BID 02/12/17 Reported Advair 100-50 Diskus (Fluticasone/Salmeterol) 1 Each Disk.w.dev 1 Puff IH BID 02/12/17 Reported Acetaminophen 325 Mg Capsule 650 Mg PO BID 02/12/17 Reported Vitamin D (Cholecalciferol (Vitamin D3)) 2,000 Unit Capsule 800 Unit PO DAILY 02/12/17 Reported Comments BATOOL INFILTRATES Impression . 1. Acute respiratory failure, sec to out of hospital arrest 2. Acute toxic/metabolic encephalopathy 3. Status post cardiopulmonary arrest. She had asystole. anoxic brain injury 4. Abnormal echocardiogram with ejection fraction of 35%. 5. Hyponatremia 6. Abnormal LFTs secondary to hypoperfusion. 7. Acute renal failure. 8. Shock, combination of cardiogenic,septic/ OFF PRESSOR Plan . THIS AM NOT IN SYNCH WITH VENT NOW BETTER OFF 1;1 RATIO NO SEDATION CONTINUE SUPPORT FOR NOW REPEAT CXR REVIEWD CT HEAD NOTHING NEW NUTRTION PER OG PROGNOSIS IS POOR LETTER WRITTEN TO COURT ANTIBX PER ID FOLLOW NEURO INPUT LORENZO HAYNES MD Feb 21, 2017 10:18
--- NOTE | 2017-02-21 11:28 | PDOC ---
PROGRESS NOTES Chief Complaint Chief Complaint cardiac arrest, asystole, unknown down time, s/p hypothermia Anoxic encephalopathy, off sedation, no response Normal corrected calcium OLIGURIC RENAL FAILURE noW NEW HD [facility] resident HX schiz by documentation Sepsis with organ failure, needing pressor THrombocytopenia ANemia, normocytic Hyponatremia Acute precipitous drop hgb History of Present Illness History of Present Illness Same Off levo for days and off sedation for days but no response Anuric HAd HD few times Ethics committee on case, we are petitioning courts to allow natural Some paperwork I did sign PLAN: HD per renal Supportive care Awaiting court orders etc to allow natural 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 Vital Signs Date Time Temp Pulse Resp B/P (MAP) Pulse Ox O2 Delivery O2 Flow Rate FiO2 02/21/17 09:30 100 Ventilator 02/21/17 07:00 100 30 167/88 (114) 02/21/17 04:00 99.1 99.1 Physical Exam General: Other (SEDATE ON VENT) Heart: Regular rate, Normal S1, Normal S2, No murmurs, Gallops Lungs: Clear Abdomen: Normal bowel sounds, Soft, No tenderness, No hepatosplenomegaly, No masses Extremities: No clubbing, No cyanosis, No edema, Normal pulses, No tenderness/ swelling Skin: No breakdown, No significant lesion Labs LABS Laboratory Tests Test 02/20/17 12:19 02/20/17 16:04 02/20/17 23:44 02/21/17 06:18 Glucose (Fingerstick) 141 mg/dL (70-99) 155 mg/dL (70-99) 144 mg/dL (70-99) 159 mg/dL (70-99) Test 02/21/17 07:45 O2 Saturation 96 % (92-99) Arterial Blood pH 7.35 (7.35-7.45) Arterial Blood pCO2 at Patient Temp 45 mmHg (35-46) Arterial Blood pO2 at Patient Temp 100 mmHg (75-108) Arterial Blood HCO3 24 mmol/L (21-28) Arterial Blood Base Excess -2 mmol/L (-3-3) FiO2 40 Review of Systems Review of Systems unresponsive Assessment and Plan Assessmemt and Plan Problems Medical Problems: (1) Cardiac arrest Status: Acute (2) Elevated troponin Status: Acute (3) Hyperkalemia Status: Acute (4) Hypoglycemia Status: Acute (5) Hyponatremia Status: Acute Problems: Comment Review of Relevant I have reviewed the following items reji (where applicable) has been applied. Labs Laboratory Tests Test 02/19/17 23:31 02/20/17 04:50 02/20/17 04:58 02/20/17 08:00 Glucose (Fingerstick) 137 mg/dL (70-99) 155 mg/dL (70-99) White Blood Count 36.3 x10^3/uL (4.0-11.0) Red Blood Count 2.48 x10^6/uL (3.50-5.40) Hemoglobin 8.0 g/dL (12.0-15.5) Hematocrit 23.8 % (36.0-47.0) Mean Corpuscular Volume 96 fL (79-100) Mean Corpuscular Hemoglobin 32 pg (25-35) Mean Corpuscular Hemoglobin Concent 34 g/dL (31-37) Red Cell Distribution Width 15.4 % (11.5-14.5) Platelet Count 183 x10^3/uL (140-400) Sodium Level 135 mmol/L (136-145) Potassium Level 4.0 mmol/L (3.5-5.1) Chloride Level 98 mmol/L (98-107) Carbon Dioxide Level 26 mmol/L (21-32) Anion Gap 11 (6-14) Blood Urea Nitrogen 78 mg/dL (7-20) Creatinine 4.0 mg/dL (0.6-1.0) Estimated GFR (Cockcroft-Gault) 14.1 Glucose Level 161 mg/dL (70-99) Calcium Level 8.2 mg/dL (8.5-10.1) Phosphorus Level 3.9 mg/dL (2.6-4.7) Albumin 1.9 g/dL (3.4-5.0) Procalcitonin 3.14 ng/mL (0.00-0.10) Random Vancomycin Level 21.0 mcg/mL O2 Saturation 97 % (92-99) Arterial Blood pH 7.39 (7.35-7.45) Arterial Blood pCO2 at Patient Temp 41 mmHg (35-46) Arterial Blood pO2 at Patient Temp 107 mmHg (75-108) Arterial Blood HCO3 24 mmol/L (21-28) Arterial Blood Base Excess -1 mmol/L (-3-3) FiO2 40 Test 02/20/17 12:19 02/20/17 16:04 02/20/17 23:44 02/21/17 06:18 Glucose (Fingerstick) 141 mg/dL (70-99) 155 mg/dL (70-99) 144 mg/dL (70-99) 159 mg/dL (70-99) Test 02/21/17 07:45 O2 Saturation 96 % (92-99) Arterial Blood pH 7.35 (7.35-7.45) Arterial Blood pCO2 at Patient Temp 45 mmHg (35-46) Arterial Blood pO2 at Patient Temp 100 mmHg (75-108) Arterial Blood HCO3 24 mmol/L (21-28) Arterial Blood Base Excess -2 mmol/L (-3-3) FiO2 40 Laboratory Tests Test 02/20/17 12:19 02/20/17 16:04 02/20/17 23:44 02/21/17 06:18 Glucose (Fingerstick) 141 mg/dL (70-99) 155 mg/dL (70-99) 144 mg/dL (70-99) 159 mg/dL (70-99) Test 02/21/17 07:45 O2 Saturation 96 % (92-99) Arterial Blood pH 7.35 (7.35-7.45) Arterial Blood pCO2 at Patient Temp 45 mmHg (35-46) Arterial Blood pO2 at Patient Temp 100 mmHg (75-108) Arterial Blood HCO3 24 mmol/L (21-28) Arterial Blood Base Excess -2 mmol/L (-3-3) FiO2 40 Microbiology 02/15/17 Blood Culture - Final, Complete NO GROWTH AFTER 5 DAYS 02/12/17 Urine Culture - Final, Complete 02/12/17 Urine Culture Result 1 (ELIZABETH) - Final, Complete Medications Current Medications Calcium Chloride 1,000 mg 1X ONCE IV Last administered on 02/12/17 15:35; Start 02/12/17 at 16:00; Stop 02/12/17 at 16:35; Status DC Dextrose (Dextrose 50%-Water Syringe) 25 gm 1X ONCE IV Last administered on 15:33; Start 02/12/17 at 16:00; Stop 02/12/17 at 16:35; Status DC Sodium Bicarbonate 50 meq 1X ONCE IV Last administered on 02/12/17 15:35; Start 02/12/17 at 16:00; Stop 02/12/17 at 16:35; Status DC Furosemide (Lasix) 40 mg 1X ONCE IVP Last administered on 02/12/17 16:42; Start 02/12/17 at 16:30; Stop 02/12/17 at 16:35; Status DC Sodium Chloride 1,000 ml @ 1,000 mls/hr Q1H IV Last administered on 02/12/17 15:50; Start 02/12/17 at 16:57; Stop 02/13/17 at 07:23; Status DC Fentanyl Citrate (Fentanyl 2ml Vial) 25 mcg PRN Q30MIN PRN IV SED; Start at 17:00 Lorazepam (Ativan) 1 mg PRN Q30MIN PRN IV SEDATION; Start 02/12/17 at 17:00 Fentanyl Citrate 30 ml @ 2.5 mls/hr CONT PRN PRN IV IVF Last administered on 03:27; Start 02/12/17 at 17:00; Stop 02/20/17 at 10:36; Status DC Propofol 100 ml @ 0 mls/hr CONT PRN IV SEE I/O RECORD; Start 02/12/17 at 17:00; Stop 02/20/17 at 10:36; Status DC Vecuronium Bryant (Norcuron Bolus) DOSE AT 0.1 mg/kg PRN Q30MIN PRN IV SHIVERING Last administered on 02/12/17 19:46; Start 02/12/17 at 17:00; Stop 02/13 at 11:01; Status DC Meperidine HCl (Demerol) 12.5 mg PRN Q30MIN PRN IV SHIVERING; Start 02/12/17 at 17:00 Multi-Ingred Cream/Lotion/Oil/ Oint (Artificial Tears Eye Oint) 1 silvestre PRN Q6HRS PRN OU 0.5 INCH FOR DRY EYE; Start 02/12/17 at 17:00 Famotidine (Pepcid) 20 mg BID IVP Last administered on 02/14/17 10:47; Start at 09:00; Stop 02/14/17 at 16:23; Status DC Aspirin (Aspirin) 300 mg DAILY MT Last administered on 9/14/17at 09:16; Start 02/13/17 at 09:00 Sodium Chloride (Normal Saline Flush) 3 ml QSHIFT PRN IV AFTER MEDS AND BLOOD DRAWS; Start 02/12/17 at 17:00 Acetaminophen (Tylenol) 650 mg Q6HRS NG Last administered on 02/13/17 05:51; Start 02/12/17 at 18:00; Stop 02/13/17 at 17:59; Status DC Acetaminophen (Acetaminophen Supp) 650 mg PRN Q6HRS PRN MT MILD PAIN / TEMP; Start 02/13/17 at 17:00 Acetaminophen (Tylenol) 650 mg PRN Q6HRS PRN NG MILD PAIN / TEMP; Start at 17:00 Info 1 ea DAILY PRN MC PER PROTOCOL; Start 02/14/17 at 17:00 Sodium Chloride 500 ml @ 500 mls/hr 1X ONCE IV Last administered on 02/12/17 16:30; Start 02/12/17 at 17:15; Stop 02/12/17 at 18:14; Status DC Sodium Chloride 500 ml @ 500 mls/hr 1X ONCE IV Last administered on 02/12/17 16:50; Start 02/12/17 at 17:15; Stop 02/12/17 at 18:14; Status DC Sodium Chloride 1,000 ml @ 100 mls/hr Q10H IV Last administered on 02/13/17 06 :36; Start 02/12/17 at 19:00; Stop 02/13/17 at 10:51; Status DC Famotidine (Pepcid) 20 mg 1X ONCE PO Last administered on 02/12/17 19:57; Start 02/12/17 at 17:30; Stop 02/12/17 at 17:34; Status DC Methylprednisolone Sodium Succinate (SOLU-Medrol 40MG VIAL) 100 mg TID IV Last administered on 02/14/17 11:01; Start 02/12/17 at 18:00; Stop 02/14/17 at 12:00; Status DC Sodium Chloride 1,000 ml @ 1,000 mls/hr 1X ONCE IV Last administered on 19:31; Start 02/12/17 at 18:15; Stop 02/12/17 at 19:14; Status DC Piperacillin Sod/ Tazobactam Sod (Zosyn Per Pharmacy) 1 each PRN DAILY PRN MC SEE COMMENTS; Start 02/12/17 at 19:15; Stop 02/18/17 at 07:22; Status DC Vancomycin HCl (Vanco Per Pharmacy) 1 each PRN DAILY PRN MC SEE COMMENTS Last administered on 02/13/17 16:50; Start 02/12/17 at 19:15; Stop 02/14/17 at 07:57; Status DC Piperacillin Sod/ Tazobactam Sod 3.375 gm/Sodium Chloride 50 ml @ 100 mls/hr Q6HRS IV Last administered on 02/15/17 05:58; Start 02/12/17 at 19:30; Stop 02/15 at 09:37; Status DC Vancomycin HCl 1 gm/Sodium Chloride 250 ml @ 250 mls/hr 1X ONCE IV Last administered on 02/12/17 20:00; Start 02/12/17 at 19:30; Stop 02/12/17 at 20:29; Status DC Sodium Bicarbonate 50 meq 1X ONCE IV Last administered on 02/12/17 19:59; Start 02/12/17 at 19:30; Stop 02/12/17 at 19:31; Status DC Norepinephrine Bitartrate 250 ml @ 0 mls/hr CONT PRN IV SEE I/O RECORD Last administered on 02/16/17 07:18; Start 02/12/17 at 19:30; Stop 02/20/17 at 10:36 ; Status DC Norepinephrine Bitartrate 250 ml @ As Directed STK-MED ONCE IV ; Start 02/12/17 at 19:25; Stop 02/12/17 at 19:26; Status DC Vancomycin HCl 750 mg/Sodium Chloride 250 ml @ 250 mls/hr Q24H IV Last administered on 02/13/17 20:34; Start 02/13/17 at 20:00; Stop 02/14/17 at 07:57; Status DC Vancomycin HCl 1 each 1X ONCE MC ; Start 02/14/17 at 19:30; Stop 02/14/17 at 19: 31; Status Cancel Sodium Chloride 1,000 ml @ 1,000 mls/hr 1X ONCE IV Last administered on 05:05; Start 02/13/17 at 04:45; Stop 02/13/17 at 05:44; Status DC Sodium Chloride 1,000 ml @ 1,000 mls/hr 1X ONCE IV Last administered on 05:35; Start 02/13/17 at 05:30; Stop 02/13/17 at 06:29; Status DC Magnesium Sulfate/ Dextrose 50 ml @ 25 mls/hr PRN DAILY PRN IV for Mag < 1.7 on am labs; Start 02/13/17 at 10:45 Dextrose/Sodium Chloride 1,000 ml @ 75 mls/hr [id number] IV Last administered on 02/15/17 01:52; Start 02/13/17 at 11:00; Stop 02/15/17 at 08:52; Status DC Vecuronium Bryant (Norcuron Bolus) 5 mg PRN Q30MIN PRN IV SHIVERING; Start 02/13/17 at 11:15 Lidocaine/Sodium Bicarbonate (Buffered Lidocaine 1%) 3 ml 1X ONCE IJ Last administered on 02/13/17 11:40; Start 02/13/17 at 11:15; Stop 02/13/17 at 11:26; Status DC Heparin Sodium/ Sodium Chloride 60 unit 1X ONCE IV Last administered on 11:40; Start 02/13/17 at 11:15; Stop 02/13/17 at 11:26; Status DC Lidocaine/Sodium Bicarbonate (Buffered Lidocaine 1%) 20 ml STK-MED ONCE IJ ; Start 02/13/17 at 11:22; Stop 02/13/17 at 11:29; Status DC Heparin Sodium (Porcine) (Heparin Sodium) 2,075 unit 1X ONCE IV Last administered on 02/13/17 12:45; Start 02/13/17 at 11:45; Stop 02/13/17 at 11:56; Status DC Heparin Sodium/ Dextrose 500 ml @ 16.5 mls/hr CONT PRN IV SEE I/O RECORD Last administered on 02/13/17 12:47; Start 02/13/17 at 11:45; Stop 02/14/17 at 13:53; Status DC Heparin Sodium (Porcine) (Heparin Sodium) 1,550 unit PRN Q6HRS PRN IV FOR UFH LEVEL LESS THAN 0.2 Last administered on 02/13/17 20:22; Start 02/13/17 at 11:45 ; Stop 02/14/17 at 13:53; Status DC Heparin Sodium (Porcine) (Heparin Sodium) 800 unit PRN Q6HRS PRN IV FOR UFH LEVEL 0.2 - 0.29 Last administered on 02/14/17 02:34; Start 02/13/17 at 11:45; Stop 02/14/17 at 13:53; Status DC Warfarin Sodium (Coumadin Per Pharmacy) 1 each PRN DAILY PRN MC PER PROTOCOL; Start 02/13/17 at 11:45; Status Cancel Info (Anti-Coagulation Monitoring By Pharmacy) 1 each PRN DAILY PRN MC SEE COMMENTS; Start 02/13/17 at 13:00; Stop 02/14/17 at 16:28; Status DC Calcium Chloride 1,000 mg STK-MED ONCE IV ; Start 02/12/17 at 10:00; Stop at 16:27; Status DC Epinephrine HCl (EPINEPHrine SYRINGE) 1 mg STK-MED ONCE .ROUTE ; Start 02/12/17 at 10:00; Stop 02/13/17 at 16:27; Status DC Dextrose (Dextrose 50%-Water Syringe) 25 gm STK-MED ONCE IV ; Start 02/12/17 at 10:00; Stop 02/13/17 at 16:27; Status DC Sodium Bicarbonate 50 meq STK-MED ONCE .ROUTE ; Start 02/12/17 at 10:00; Stop 02/13/17 at 16:27; Status DC Methylprednisolone Sodium Succinate (SOLU-Medrol 125MG VIAL) 100 mg TID IV Last administered on 02/20/17 21:32; Start 02/14/17 at 18:00 Norepinephrine Bitartrate 250 ml @ 0 mls/hr CONT PRN IV SEE I/O RECORD; Start 02/14/17 at 15:30; Status Cancel Famotidine (Pepcid) 20 mg DAILY IVP Last administered on 02/20/17 09:16; Start 02/15/17 at 09:00 Amino Acids/ Glycerin/ Electrolytes 1,000 ml @ 80 mls/hr [id number] IV Last administered on 02/15/17 09:32; Start 02/15/17 at 08:45; Stop 02/15/17 at 15:14; Status DC Albumin Human 100 ml @ 100 mls/hr 1X ONCE IV Last administered on 02/15/17 09 :30; Start 02/15/17 at 08:45; Stop 02/15/17 at 09:44; Status DC Furosemide (Lasix) 40 mg 1X ONCE IVP ; Start 02/15/17 at 08:45; Stop 02/15/17 at 09:18; Status DC Piperacillin Sod/ Tazobactam Sod 2.25 gm/Sodium Chloride 50 ml @ 100 mls/hr Q6HRS IV Last administered on 02/16/17 05:52; Start 02/15/17 at 12:00; Stop 03/25 at 09:17; Status DC Daptomycin 340 mg/ Sodium Chloride 50 ml @ 100 mls/hr ONCE ONCE IV Last administered on 02/15/17 11:15; Start 02/15/17 at 11:15; Stop 02/15/17 at 11:44; Status DC Dextrose/Sodium Chloride 1,000 ml @ 40 mls/hr Q24H IV Last administered on 21:31; Start 02/15/17 at 15:15 Lidocaine/Sodium Bicarbonate (Buffered Lidocaine 1%) 3 ml 1X ONCE IJ Last administered on 02/15/17 16:00; Start 02/15/17 at 15:45; Stop 02/15/17 at 15:46; Status DC Heparin Sodium/ Sodium Chloride 6,000 unit 1X ONCE IV ; Start 02/15/17 at 15:45 ; Stop 02/15/17 at 15:46; Status DC Sodium Chloride 1,000 ml @ 1,000 mls/hr Q1H PRN IV hypotension; Start 02/16/17 at 06:38; Stop 02/16/17 at 12:37; Status DC Info (PHARMACY MONITORING -- do not chart) 1 each PRN DAILY PRN MC SEE COMMENTS ; Start 02/16/17 at 06:45 Info (PHARMACY MONITORING -- do not chart) 1 each PRN DAILY PRN MC SEE COMMENTS ; Start 02/16/17 at 06:45; Stop 02/16/17 at 09:19; Status DC Info (PHARMACY MONITORING -- do not chart) 1 each PRN DAILY PRN MC SEE COMMENTS ; Start 02/16/17 at 06:45; Stop 02/16/17 at 09:19; Status DC Albumin Human 100 ml @ 100 mls/hr 1X ONCE IV Last administered on 02/16/17 07:18; Start 02/16/17 at 07:00; Stop 02/16/17 at 07:59; Status DC Piperacillin Sod/ Tazobactam Sod 2.25 gm/Sodium Chloride 50 ml @ 100 mls/hr Q8HRS IV Last administered on 02/18/17 05:55; Start 02/16/17 at 14:00; Stop at 07:22; Status DC Daptomycin 340 mg/ Sodium Chloride 50 ml @ 100 mls/hr QODAY IV Last administered on 02/17/17 12:22; Start 02/17/17 at 09:00; Stop 02/18/17 at 07:22 ; Status DC Sodium Chloride 1,000 ml @ 1,000 mls/hr Q1H PRN IV hypotension; Start 02/17/17 at 08:30; Stop 02/17/17 at 16:00; Status DC Albumin Human 200 ml @ 200 mls/hr 1X PRN PRN IV Hypotension; Start 02/17/17 at 08:30; Stop 02/17/17 at 16:00; Status DC Sodium Chloride 1,000 ml @ 400 mls/hr Q2H30M PRN IV PATENCY; Start 02/17/17 at 08:30; Stop 02/17/17 at 16:00; Status DC Info (PHARMACY MONITORING -- do not chart) 1 each PRN DAILY PRN MC SEE COMMENTS ; Start 02/17/17 at 08:30; Status UNV Info (PHARMACY MONITORING -- do not chart) 1 each PRN DAILY PRN MC SEE COMMENTS ; Start 02/17/17 at 08:30; Status UNV Heparin Sodium (Porcine) (Heparin Sq) 5,000 unit Q8HRS SQ Last administered on 02/21/17 06:04; Start 02/17/17 at 14:00 Bisacodyl (Dulcolax Supp) 10 mg PRN DAILY PRN MT CONSTIPATION; Start 02/17/17 at 15:00 Polyethylene Glycol (miraLAX PACKET) 17 gm PRN DAILY PRN FT CONSTIPATION; Start 02/17/17 at 15:00 Levetiracetam 500 mg/Sodium Chloride 100 ml @ 400 mls/hr Q12HR IV Last administered on 02/20/17 21:32; Start 02/17/17 at 21:00 Vancomycin HCl (Vanco Per Pharmacy) 1 each PRN DAILY PRN MC SEE COMMENTS Last administered on 02/20/17 12:40; Start 02/18/17 at 07:30 Vancomycin HCl 1.5 gm/Sodium Chloride 500 ml @ 250 mls/hr 1X ONCE IV Last administered on 02/18/17 14:43; Start 02/18/17 at 14:30; Stop 02/18/17 at 16:29 ; Status DC Vancomycin HCl 1 each 1X ONCE MC Last administered on 02/20/17 05:00; Start 02/20/17 at 05:00; Stop 02/20/17 at 05:01; Status DC Sodium Chloride 1,000 ml @ 1,000 mls/hr Q1H PRN IV hypotension; Start 02/19/17 at 09:08; Stop 02/19/17 at 15:07; Status DC Albumin Human 200 ml @ 200 mls/hr 1X PRN PRN IV Hypotension; Start 02/19/17 at 09:15; Stop 02/19/17 at 15:14; Status DC Sodium Chloride 1,000 ml @ 400 mls/hr Q2H30M PRN IV PATENCY; Start 02/19/17 at 09:08; Stop 02/19/17 at 21:07; Status DC Info (PHARMACY MONITORING -- do not chart) 1 each PRN DAILY PRN MC SEE COMMENTS ; Start 02/19/17 at 09:15; Stop 02/19/17 at 09:17; Status DC Info (PHARMACY MONITORING -- do not chart) 1 each PRN DAILY PRN MC SEE COMMENTS ; Start 02/19/17 at 09:15; Stop 02/20/17 at 12:35; Status DC Vancomycin HCl 500 mg/Sodium Chloride 100 ml @ 100 mls/hr QMWF IV ; Start 02/21 at 16:00 Sodium Chloride 1,000 ml @ 1,000 mls/hr Q1H PRN IV hypotension; Start 02/21/17 at 08:14; Stop 02/21/17 at 14:13 Diphenhydramine HCl (Benadryl) 25 mg 1X PRN PRN IV ITCHING; Start 02/21/17 at 08:15; Stop 02/22/17 at 08:14 Diphenhydramine HCl (Benadryl) 25 mg 1X PRN PRN IV ITCHING; Start 02/21/17 at 08:15; Stop 02/22/17 at 08:14 Sodium Chloride (Normal Saline Flush) 10 ml 1X PRN PRN IV AP catheter pack; Start 02/21/17 at 08:15; Stop 02/22/17 at 08:14 Sodium Chloride (Normal Saline Flush) 10 ml 1X PRN PRN IV CAD DRAFTER catheter pack; Start 02/21/17 at 08:15; Stop 02/22/17 at 08:14 Sodium Chloride 1,000 ml @ 400 mls/hr Q2H30M PRN IV PATENCY; Start 02/21/17 at 08:14; Stop 02/21/17 at 20:13 Info (PHARMACY MONITORING -- do not chart) 1 each PRN DAILY PRN MC SEE COMMENTS ; Start 02/21/17 at 08:15 Active Scripts Active Reported Latuda (Lurasidone Hcl) 20 Mg Tablet 20 Mg PO AFTRNOON Remeron (Mirtazapine) 15 Mg Tablet 1 Tab PO QHS Oxybutynin Chloride Er (Oxybutynin Chloride) 10 Mg Tab.er.24 1 Tab PO DAILY Multivitamins (Multivitamin) 1 Each Tablet 1 Tab PO DAILY Latuda (Lurasidone Hcl) 20 Mg Tablet 10 Mg PO AFTRNOON Lorazepam 0.5 Mg Tablet 1 Tab PO QEVNG Duoneb 0.5-3(2.5) Mg/3 Ml (Albuterol/Ipratropium) 3 Ml Ampul.neb 3 Ml NEB BID Duoneb 0.5-3(2.5) Mg/3 Ml (Albuterol/Ipratropium) 3 Ml Ampul.neb 3 Ml NEB Q4H PRN Calcium Carbonate 500 Mg Tablet 1,000 Mg PO Q4HRS PRN Nicotine Gum (Nicotine Polacrilex) 4 Mg Gum 4 Mg BC Milk Of Magnesia (Magnesium Hydroxide) 400 Mg/5 Ml Oral.susp 400 Mg PO Q3DAYS PRN Milk Of Magnesia (Magnesium Hydroxide) 400 Mg/5 Ml Oral.susp 400 Mg PO Q3DAYS PRN Lorazepam 1 Mg Tablet 1 Tab PO Q12HR PRN Ibuprofen 400 Mg Tablet 200 Mg PO Q8HRS PRN Cough Drops (Eucalyptus Oil/Menthol) 7 Mg Lozenge 7 Mg MM Q4HRS PRN Tylenol (Acetaminophen) 325 Mg Tablet 650 Mg PO Q4HRS PRN Lovaza ([place]-3 Acid Ethyl Esters) 1 Gm Capsule 1 Cap PO QID Gabapentin 400 Mg Capsule 400 Mg PO QID Lorazepam 1 Mg Tablet 1 Tab PO BID Latuda (Lurasidone Hcl) 60 Mg Tablet 60 Mg PO BID Advair 100-50 Diskus (Fluticasone/Salmeterol) 1 Each Disk.w.dev 1 Puff IH BID Acetaminophen 325 Mg Capsule 650 Mg PO BID Vitamin D (Cholecalciferol (Vitamin D3)) 2,000 Unit Capsule 800 Unit PO DAILY Vitals/I & O Vital Sign - Last 24 Hours 02/20/17 02/20/17 02/20/17 02/20/17 11:32 12:00 12:00 12:50 Temp 98.6 98.6 Pulse 88 Resp 30 B/P (MAP) 145/87 (106) Pulse Ox 100 100 100 O2 Delivery Ventilator Ventilator Mechanical Ventilator Ventilator 02/20/17 02/20/17 02/20/17 02/20/17 13:00 14:00 15:00 15:42 Pulse 88 94 97 Resp 30 36 30 B/P (MAP) 158/85 (109) 154/83 (106) 159/81 (107) Pulse Ox 100 100 100 100 O2 Delivery Ventilator Ventilator Ventilator Ventilator 02/20/17 02/20/17 02/20/17 02/20/17 16:00 16:00 17:00 17:14 Temp 99.2 99.2 Pulse 92 90 Resp 30 30 B/P (MAP) 143/81 (101) 130/84 (99) Pulse Ox 100 100 100 O2 Delivery Ventilator Mechanical Ventilator Ventilator Ventilator 02/20/17 02/20/17 02/20/17 02/20/17 18:00 19:00 20:00 20:00 Temp 98.6 98.6 Pulse 92 82 100 Resp 30 30 30 B/P (MAP) 135/83 (100) 156/95 (115) 156/89 (111) Pulse Ox 100 100 100 O2 Delivery Ventilator Ventilator Mechanical Ventilator Ventilator 02/20/17 02/20/17 02/20/17 02/20/17 20:10 21:00 22:00 23:00 Pulse 87 94 97 Resp 30 30 30 B/P (MAP) 158/97 (117) 137/86 (103) 145/86 (105) Pulse Ox 100 100 100 100 O2 Delivery Ventilator Ventilator Ventilator Ventilator 02/20/17 02/20/17 02/20/17 02/21/17 23:20 23:59 23:59 01:00 Temp 98.7 98.7 Pulse 100 89 Resp 30 30 B/P (MAP) 145/85 (105) 139/86 (103) Pulse Ox 100 100 100 O2 Delivery Ventilator Ventilator Mechanical Ventilator Ventilator 02/21/17 02/21/17 02/21/17 02/21/17 01:51 02:00 03:00 03:25 Pulse 94 88 Resp 30 30 B/P (MAP) 134/95 (108) 134/84 (101) Pulse Ox 100 100 100 100 O2 Delivery Ventilator Ventilator Ventilator Ventilator 02/21/17 02/21/17 02/21/17 02/21/17 04:00 04:00 05:00 05:37 Temp 99.1 99.1 Pulse 91 96 Resp 30 30 B/P (MAP) 140/86 (104) 155/90 (111) Pulse Ox 100 100 100 O2 Delivery Mechanical Ventilator Ventilator Ventilator Ventilator 02/21/17 02/21/17 02/21/17 02/21/17 06:00 07:00 07:40 09:30 Pulse 99 100 Resp 30 30 B/P (MAP) 161/90 (113) 167/88 (114) Pulse Ox 100 100 100 100 O2 Delivery Ventilator Ventilator Ventilator Ventilator BERONICA VILLATORO MD Feb 21, 2017 11:28
[2017-02-21] MEDS: FAMOTIDINE 20 MG/2 ML VIAL IVP SCH (13:05)
[2017-02-21] MEDS: methylPREDNISolone SOD SUCC PF 125 MG/2 ML VIAL. IV SCH ×3 (13:05→21:15)
[2017-02-21] MEDS: ASPIRIN 300 MG SUPP.RECT PR SCH (13:06)
--- NOTE | 2017-02-21 13:24 | PDOC ---
PROGRESS NOTES Assessment Assessment S/p cardiac pulmonary arrest received hypothermia, CPR 20 minutes. Anoxic encephalopathy. Metabolic encephalopathy. Respiratory failure. Pulmonary infiltrate. Renal failure. Multi-organ failure. Sepsis. Lactic acidosis. Leukocytosis. HTN HLD COPD Anemia HCV, Hx ? EEG on 02/17/17: Abnormal. PLEDs. Sharp waves. Slowing. HCT on 02/12 and 02/19: Unremarkable. RECOMMENDATIONS/PLAN: Palliative care suggested. Poor prognosis. No meaningful recovery. 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 ALLERGY: Reviewed. MEDICATIONS: Refer to MAR REVIEW OF SYSTEMS: Constitutional: No malnutrition, cachexia. Head: No recent traumatic brain or head injury. Skin: No edema, or rash. Ear: No infection. Eyes: No vision loss, or diplopia. Nose: No bleeding or purulent discharges. Hearing: No hearing decrease. Neck: No injury. Breast: No history of cancer, masses, or discharges. Cardiac: HTN, HLD Pulmonary: CPOD. GI: No GI Ulcer, GI bleeding Urinary/genital: UTI. Endocrine: [id number]. Skeletomuscular: No muscular atrophy. Neurological: see HP. Psychiatric: Denies drug use/abuse. Otherwise, not [id number] review of systems. PHYSICAL EXAMINATION: General appearance in subacute distress. HEENT: Normocephalic and nontraumatic. Eyes, nose, ears, and throat are unremarkable. Neck is supple. No lymphadenopathy. No bruits are heard over the carotid artery. Cardiovascular: S1, S2, seemed regular rate and rhythm. Pulmonary: On vent. Abdomen: Bowel sounds are positive. Extremities: No rash, lesions. NEUROLOGICAL EXAMINATION: On vent. Unresponsive. No sedation since 02/14/17. Not oriented to time, place and person. PERRL. EOMI not elicited. CN: no acute focal findings. Muscle tone: decreased. Muscle strength: no obvious spontaneous movements observed. DTR: 0-1 Plantar reflex: No response bilaterally Gait: Unable to walk. Sensory exam: Minimal response to painful stimuli. Not able to access cerebellar signs. Not able to perform F-T-N test in coma. Objective Objective Vital Signs Date Time Temp Pulse Resp B/P (MAP) Pulse Ox O2 Delivery O2 Flow Rate FiO2 02/21/17 11:30 100 Ventilator 02/21/17 07:00 100 30 167/88 (114) 02/21/17 04:00 99.1 99.1 Vitals Signs Vitals VS - Last 72 Hours, by Label Date Time Temp Pulse Resp B/P (MAP) Pulse Ox O2 Delivery O2 Flow Rate FiO2 02/21/17 11:30 100 Ventilator 02/21/17 09:30 100 Ventilator 02/21/17 07:40 100 Ventilator 02/21/17 07:00 100 30 167/88 (114) 100 Ventilator 02/21/17 06:00 99 30 161/90 (113) 100 Ventilator 02/21/17 05:37 100 Ventilator 02/21/17 05:00 96 30 155/90 (111) 100 Ventilator 02/21/17 04:00 99.1 91 30 140/86 (104) 100 Ventilator 99.1 02/21/17 04:00 Mechanical Ventilator 02/21/17 03:25 100 Ventilator 02/21/17 03:00 88 30 134/84 (101) 100 Ventilator 02/21/17 02:00 94 30 134/95 (108) 100 Ventilator 02/21/17 01:51 100 Ventilator 02/21/17 01:00 89 30 139/86 (103) 100 Ventilator 02/20/17 23:59 Mechanical Ventilator 02/20/17 23:59 98.7 100 30 145/85 (105) 100 Ventilator 98.7 02/20/17 23:20 100 Ventilator 02/20/17 23:00 97 30 145/86 (105) 100 Ventilator 02/20/17 22:00 94 30 137/86 (103) 100 Ventilator 02/20/17 21:00 87 30 158/97 (117) 100 Ventilator 02/20/17 20:10 100 Ventilator 02/20/17 20:00 98.6 100 30 156/89 (111) 100 Ventilator 98.6 02/20/17 20:00 Mechanical Ventilator 02/20/17 19:00 82 30 156/95 (115) 100 Ventilator 02/20/17 18:00 92 30 135/83 (100) 100 Ventilator 02/20/17 17:14 100 Ventilator 02/20/17 17:00 90 30 130/84 (99) 100 Ventilator 02/20/17 16:00 Mechanical Ventilator 02/20/17 16:00 99.2 92 30 143/81 (101) 100 Ventilator 99.2 02/20/17 15:42 100 Ventilator 02/20/17 15:00 97 30 159/81 (107) 100 Ventilator 02/20/17 14:00 94 36 154/83 (106) 100 Ventilator 02/20/17 13:00 88 30 158/85 (109) 100 Ventilator 02/20/17 12:50 100 Ventilator 02/20/17 12:00 Mechanical Ventilator 02/20/17 12:00 98.6 88 30 145/87 (106) 100 Ventilator 98.6 02/20/17 11:32 100 Ventilator 02/20/17 11:00 86 30 151/94 (113) 100 Ventilator 02/20/17 10:00 88 30 143/83 (103) 100 Ventilator 02/20/17 09:10 100 Ventilator 02/20/17 09:00 88 30 148/89 (108) 100 Ventilator 02/20/17 08:00 Mechanical Ventilator 02/20/17 08:00 98.8 90 30 150/89 (109) 100 Ventilator 98.8 02/20/17 07:32 100 Ventilator 02/20/17 07:00 92 30 146/87 (106) 100 Ventilator Laboratory Laboratory Laboratory Tests Test 02/20/17 16:04 02/20/17 23:44 02/21/17 06:18 02/21/17 07:45 Glucose (Fingerstick) 155 mg/dL (70-99) 144 mg/dL (70-99) 159 mg/dL (70-99) O2 Saturation 96 % (92-99) Arterial Blood pH 7.35 (7.35-7.45) Arterial Blood pCO2 at Patient Temp 45 mmHg (35-46) Arterial Blood pO2 at Patient Temp 100 mmHg (75-108) Arterial Blood HCO3 24 mmol/L (21-28) Arterial Blood Base Excess -2 mmol/L (-3-3) FiO2 40 Microbiology 02/15/17 Blood Culture - Final, Complete NO GROWTH AFTER 5 DAYS 02/12/17 Urine Culture - Final, Complete 02/12/17 Urine Culture Result 1 (ELIZABETH) - Final, Complete Medication Medications Current Medications Diphenhydramine HCl (Benadryl) 25 mg 1X PRN PRN IV ITCHING; Start 02/21/17 at 08:15; Stop 02/22/17 at 08:14 Diphenhydramine HCl (Benadryl) 25 mg 1X PRN PRN IV ITCHING; Start 02/21/17 at 08:15; Stop 02/22/17 at 08:14 Info (PHARMACY MONITORING -- do not chart) 1 each PRN DAILY PRN MC SEE COMMENTS ; Start 02/21/17 at 08:15 Sodium Chloride 1,000 ml @ 400 mls/hr Q2H30M PRN IV PATENCY; Start 02/21/17 at 08:14; Stop 02/21/17 at 20:13 Sodium Chloride 1,000 ml @ 1,000 mls/hr Q1H PRN IV hypotension; Start 02/21/17 at 08:14; Stop 02/21/17 at 14:13 Sodium Chloride (Normal Saline Flush) 10 ml 1X PRN PRN IV AP catheter pack; Start 02/21/17 at 08:15; Stop 02/22/17 at 08:14 Sodium Chloride (Normal Saline Flush) 10 ml 1X PRN PRN IV UNDERGROUND PRODUCTION FOREPERSON catheter pack; Start 02/21/17 at 08:15; Stop 02/22/17 at 08:14 Vancomycin HCl 500 mg/Sodium Chloride 100 ml @ 100 mls/hr QMWF IV ; Start 02/21 at 16:00 Comment Review of Relevant I have reviewed the following items reji (where applicable) has been applied. YASMINE BERNAL MD Feb 21, 2017 13:24
[2017-02-21] MEDS: IV DEXTROSE 5 %-0.2 % NACL 1,000 ML IV SCH (15:15)
[2017-02-21] MEDS: VANCOMYCIN 500 MG in IV NORMAL SALINE 100ML 100 ML IV SCH (16:17)
--- NOTE | 2017-02-21 18:04 | RAD ---
AP abdomen radiograph 02/21/2017 Clinical history: OG tube placement. An AP supine portable digital radiograph of the abdomen was obtained. The tip of an NG tube extends to overlie the body of the stomach. The lung bases are grossly clear. The visualized abdominal bowel gas pattern is nonobstructive. The osseous structures are grossly intact. IMPRESSION: The tip of the OG tube overlies the body of the stomach. Electronically signed by: Gama Wallace MD (02/21/2017 6:01 PM) [id number]
[2017-02-22] VITALS (27 sets, daily range): BP systolic 119–167; BP diastolic 62–94
[2017-02-22] MEDS: HEPARIN PF for SUB-Q USE 5,000 UNIT/0.5 ML VIAL. SQ SCH (05:49)
[2017-02-22 06:45] LABS: ALBUMIN 1.9 g/dL (3.4-5.0); ALBUMIN/GLOBULIN RATIO 0.7 (1.0-1.7); CALCIUM 7.5 mg/dL (8.5-10.1); CREATININE 3.9 mg/dL (0.6-1.0); GFR 14.5; POTASSIUM 4.4 mmol/L (3.5-5.1); TOTAL BILIRUBIN 1.1 mg/dL (0.2-1.0); TOTAL PROTEIN 4.6 g/dL (6.4-8.2)
[2017-02-22 07:16] LABS: BASO % 0 % (0-3); EOS % 0 % (0-3); LYMPH # 1.3 x10^3/uL (1.0-4.8); LYMPH % 3 % (24-48); MEAN CORPUSCULAR HEMOGLOBIN 32 pg (25-35); MEAN CORPUSCULAR HGB CONC 34 g/dL (31-37); MEAN CORPUSCULAR VOLUME 94 fL (79-100); MONO % 5 % (0-9); NEUT % 92 % (31-73); PLATELET COUNT 177 x10^3/uL (140-400); RED BLOOD COUNT 1.39 x10^6/uL (3.50-5.40); RED CELL DISTRIBUTION WIDTH 14.5 % (11.5-14.5)
[2017-02-22 07:19] LABS: HEMOGLOBIN 4.4 g/dL (12.0-15.5); WHITE BLOOD COUNT 51.2 x10^3/uL (4.0-11.0)
[2017-02-22 07:20] LABS: HEMATOCRIT 13.2 % (36.0-47.0)
[2017-02-22 07:49] LABS: HCO3 ABG 22 mmol/L (21-28); PCO2 ABG 28 mmHg (35-46); PO2 ABG 158 mmHg (75-108); SAT O2 ABG 98 % (92-99)
--- NOTE | 2017-02-22 07:57 | RAD ---
Chest radiograph 02/22/2017 11:00 AM Indication: Congestive heart failure Comparison: Chest radiograph 02/21/2017 at 0637 hours Technique: Single portable semiupright frontal view of the chest is provided. Findings: Endotracheal tube terminates 4 cm above the level of the ernst. A left IJ catheter is identified with the distal tip projecting over the cavoatrial junction. Nasogastric tube is identified coursing below the level of the diaphragm to distal tip not visualized on this radiograph. Distal tip of right IJ central venous catheter terminates in the region of the distal superior vena cava. Cardiomediastinal silhouette is within normal limits. No pleural effusions or pneumothorax. Right lung predominantly interstitial opacities appear similar compared to the prior examination. Osseous structures are normal. Impression: 1. Stable support lines and tubes. 2. Similar appearance of patchy interstitial changes predominantly involving the right lung.
[2017-02-22 08:01] LABS: FIO2 ABG 35
--- NOTE | 2017-02-22 08:16 | PDOC ---
PULMONARY PROGRESS NOTES Subjective on vent, tachypneac, not following commands Vitals Vital Signs Date Time Temp Pulse Resp B/P (MAP) Pulse Ox O2 Delivery O2 Flow Rate FiO2 02/22/17 07:55 Mechanical Ventilator 02/22/17 07:18 100 02/22/17 07:00 99.4 109 31 125/81 (96) 99.4 Comments ros, discussed w rn, as mentioned as above other sys otherwise neg HEENT: Other (nc at perrl, nose clear, orally intubated. neck no lap thyromegaly) Lungs: Crackles Cardiovascular: S1, S2 Abdomen: Soft, Non-tender, Other (no mass) Extremities: No Edema Skin: Warm, Dry Labs Laboratory Tests Test 02/20/17 12:19 02/20/17 16:04 02/20/17 23:44 02/21/17 06:18 Glucose (Fingerstick) 141 mg/dL (70-99) 155 mg/dL (70-99) 144 mg/dL (70-99) 159 mg/dL (70-99) Test 02/21/17 07:45 02/21/17 16:15 02/22/17 05:45 02/22/17 07:05 O2 Saturation 96 % (92-99) Arterial Blood pH 7.35 (7.35-7.45) Arterial Blood pCO2 at Patient Temp 45 mmHg (35-46) Arterial Blood pO2 at Patient Temp 100 mmHg (75-108) Arterial Blood HCO3 24 mmol/L (21-28) Arterial Blood Base Excess -2 mmol/L (-3-3) FiO2 40 Glucose (Fingerstick) 140 mg/dL (70-99) Sodium Level 135 mmol/L (136-145) Potassium Level 4.4 mmol/L (3.5-5.1) Chloride Level 97 mmol/L (98-107) Carbon Dioxide Level 27 mmol/L (21-32) Anion Gap 11 (6-14) Blood Urea Nitrogen 91 mg/dL (7-20) Creatinine 3.9 mg/dL (0.6-1.0) Estimated GFR (Cockcroft-Gault) 14.5 BUN/Creatinine Ratio 23 (6-20) Glucose Level 159 mg/dL (70-99) Calcium Level 7.5 mg/dL (8.5-10.1) Total Bilirubin 1.1 mg/dL (0.2-1.0) Aspartate Amino Transf (AST/SGOT) 92 U/L (15-37) Alanine Aminotransferase (ALT/SGPT) 221 U/L (14-59) Alkaline Phosphatase 104 U/L (46-116) Total Protein 4.6 g/dL (6.4-8.2) Albumin 1.9 g/dL (3.4-5.0) Albumin/Globulin Ratio 0.7 (1.0-1.7) White Blood Count 51.2 x10^3/uL (4.0-11.0) Red Blood Count 1.39 x10^6/uL (3.50-5.40) Hemoglobin 4.4 g/dL (12.0-15.5) Hematocrit 13.2 % (36.0-47.0) Mean Corpuscular Volume 94 fL (79-100) Mean Corpuscular Hemoglobin 32 pg (25-35) Mean Corpuscular Hemoglobin Concent 34 g/dL (31-37) Red Cell Distribution Width 14.5 % (11.5-14.5) Platelet Count 177 x10^3/uL (140-400) Neutrophils (%) (Auto) 92 % (31-73) Lymphocytes (%) (Auto) 3 % (24-48) Monocytes (%) (Auto) 5 % (0-9) Eosinophils (%) (Auto) 0 % (0-3) Basophils (%) (Auto) 0 % (0-3) Neutrophils # (Auto) 47.3 x10^3uL (1.8-7.7) Lymphocytes # (Auto) 1.3 x10^3/uL (1.0-4.8) Monocytes # (Auto) 2.5 x10^3/uL (0.0-1.1) Eosinophils # (Auto) 0.0 x10^3/uL (0.0-0.7) Basophils # (Auto) 0.0 x10^3/uL (0.0-0.2) Test 02/22/17 07:45 O2 Saturation 98 % (92-99) Arterial Blood pH 7.50 (7.35-7.45) Arterial Blood pCO2 at Patient Temp 28 mmHg (35-46) Arterial Blood pO2 at Patient Temp 158 mmHg (75-108) Arterial Blood HCO3 22 mmol/L (21-28) Arterial Blood Base Excess -2 mmol/L (-3-3) FiO2 35 Laboratory Tests Test 02/21/17 16:15 02/22/17 05:45 02/22/17 07:05 02/22/17 07:45 Glucose (Fingerstick) 140 mg/dL (70-99) Sodium Level 135 mmol/L (136-145) Potassium Level 4.4 mmol/L (3.5-5.1) Chloride Level 97 mmol/L (98-107) Carbon Dioxide Level 27 mmol/L (21-32) Anion Gap 11 (6-14) Blood Urea Nitrogen 91 mg/dL (7-20) Creatinine 3.9 mg/dL (0.6-1.0) Estimated GFR (Cockcroft-Gault) 14.5 BUN/Creatinine Ratio 23 (6-20) Glucose Level 159 mg/dL (70-99) Calcium Level 7.5 mg/dL (8.5-10.1) Total Bilirubin 1.1 mg/dL (0.2-1.0) Aspartate Amino Transf (AST/SGOT) 92 U/L (15-37) Alanine Aminotransferase (ALT/SGPT) 221 U/L (14-59) Alkaline Phosphatase 104 U/L (46-116) Total Protein 4.6 g/dL (6.4-8.2) Albumin 1.9 g/dL (3.4-5.0) Albumin/Globulin Ratio 0.7 (1.0-1.7) White Blood Count 51.2 x10^3/uL (4.0-11.0) Red Blood Count 1.39 x10^6/uL (3.50-5.40) Hemoglobin 4.4 g/dL (12.0-15.5) Hematocrit 13.2 % (36.0-47.0) Mean Corpuscular Volume 94 fL (79-100) Mean Corpuscular Hemoglobin 32 pg (25-35) Mean Corpuscular Hemoglobin Concent 34 g/dL (31-37) Red Cell Distribution Width 14.5 % (11.5-14.5) Platelet Count 177 x10^3/uL (140-400) Neutrophils (%) (Auto) 92 % (31-73) Lymphocytes (%) (Auto) 3 % (24-48) Monocytes (%) (Auto) 5 % (0-9) Eosinophils (%) (Auto) 0 % (0-3) Basophils (%) (Auto) 0 % (0-3) Neutrophils # (Auto) 47.3 x10^3uL (1.8-7.7) Lymphocytes # (Auto) 1.3 x10^3/uL (1.0-4.8) Monocytes # (Auto) 2.5 x10^3/uL (0.0-1.1) Eosinophils # (Auto) 0.0 x10^3/uL (0.0-0.7) Basophils # (Auto) 0.0 x10^3/uL (0.0-0.2) O2 Saturation 98 % (92-99) Arterial Blood pH 7.50 (7.35-7.45) Arterial Blood pCO2 at Patient Temp 28 mmHg (35-46) Arterial Blood pO2 at Patient Temp 158 mmHg (75-108) Arterial Blood HCO3 22 mmol/L (21-28) Arterial Blood Base Excess -2 mmol/L (-3-3) FiO2 35 Medications Active Scripts Medications Dose Route/Sig Max Daily Dose Days Date Category Latuda (Lurasidone Hcl) 20 Mg Tablet 20 Mg PO AFTRNOON 02/12/17 Reported Remeron (Mirtazapine) 15 Mg Tablet 1 Tab PO QHS 02/12/17 Reported Oxybutynin Chloride Er (Oxybutynin Chloride) 10 Mg Tab.er.24 1 Tab PO DAILY 02/12/17 Reported Multivitamins (Multivitamin) 1 Each Tablet 1 Tab PO DAILY 02/12/17 Reported Latuda (Lurasidone Hcl) 20 Mg Tablet 10 Mg PO AFTRNOON 02/12/17 Reported Lorazepam 0.5 Mg Tablet 1 Tab PO QEVNG 02/12/17 Reported Duoneb 0.5-3(2.5) Mg/3 Ml (Albuterol/Ipratropium) 3 Ml Ampul.neb 3 Ml NEB BID 02/12/17 Reported Duoneb 0.5-3(2.5) Mg/3 Ml (Albuterol/Ipratropium) 3 Ml Ampul.neb 3 Ml NEB Q4H PRN 02/12/17 Reported Calcium Carbonate 500 Mg Tablet 1,000 Mg PO Q4HRS PRN 02/12/17 Reported Nicotine Gum (Nicotine Polacrilex) 4 Mg Gum 4 Mg BC 02/12/17 Reported Milk Of Magnesia (Magnesium Hydroxide) 400 Mg/5 Ml Oral.susp 400 Mg PO Q3DAYS PRN 02/12/17 Reported Milk Of Magnesia (Magnesium Hydroxide) 400 Mg/5 Ml Oral.susp 400 Mg PO Q3DAYS PRN 02/12/17 Reported Lorazepam 1 Mg Tablet 1 Tab PO Q12HR PRN 02/12/17 Reported Ibuprofen 400 Mg Tablet 200 Mg PO Q8HRS PRN 02/12/17 Reported Cough Drops (Eucalyptus Oil/Menthol) 7 Mg Lozenge 7 Mg MM Q4HRS PRN 02/12/17 Reported Tylenol (Acetaminophen) 325 Mg Tablet 650 Mg PO Q4HRS PRN 02/12/17 Reported Lovaza (Art-3 Acid Ethyl Esters) 1 Gm Capsule 1 Cap PO QID 02/12/17 Reported Gabapentin 400 Mg Capsule 400 Mg PO QID 02/12/17 Reported Lorazepam 1 Mg Tablet 1 Tab PO BID 02/12/17 Reported Latuda (Lurasidone Hcl) 60 Mg Tablet 60 Mg PO BID 02/12/17 Reported Advair 100-50 Diskus (Fluticasone/Salmeterol) 1 Each Disk.w.dev 1 Puff IH BID 02/12/17 Reported Acetaminophen 325 Mg Capsule 650 Mg PO BID 02/12/17 Reported Vitamin D (Cholecalciferol (Vitamin D3)) 2,000 Unit Capsule 800 Unit PO DAILY 02/12/17 Reported Comments cxr reviewed BATOOL INFILTRATES Impression . 1. Acute respiratory failure, sec to out of hospital arrest 2. Acute toxic/metabolic encephalopathy 3. Status post cardiopulmonary arrest. She had asystole. anoxic brain injury 4. Abnormal echocardiogram with ejection fraction of 35%. 5. Hyponatremia 6. Abnormal LFTs secondary to hypoperfusion. 7. Acute renal failure. 8. Shock, combination of cardiogenic,septic/ OFF PRESSOR Plan . cont vent support, abg reviewed, changed to rr 16, vt 420 NO SEDATION CONTINUE SUPPORT FOR NOW CXR REVIEWD CT HEAD NOTHING NEW NUTRTION PER OG PROGNOSIS IS POOR LETTER WRITTEN TO COURT ANTIBX PER ID FOLLOW NEURO INPUT discussed w TULIO Ash MD Feb 22, 2017 08:15
[2017-02-22] MEDS: VANCOMYCIN PER PHARMACY MC PRN (08:35)
[2017-02-22 09:00] LABS: CALCIUM 7.9 mg/dL (8.5-10.1); CREATININE 3.9 mg/dL (0.6-1.0); GFR 14.5; POTASSIUM 4.2 mmol/L (3.5-5.1)
[2017-02-22] MEDS: methylPREDNISolone SOD SUCC PF 125 MG/2 ML VIAL. IV SCH ×3 (09:26→21:17)
[2017-02-22] MEDS: FAMOTIDINE 20 MG/2 ML VIAL IVP SCH (09:27)
[2017-02-22] MEDS: ASPIRIN 300 MG SUPP.RECT PR SCH (09:27)
--- NOTE | 2017-02-22 09:33 | PDOC ---
Infectious Disease Note Subjective Subjective Off sedation 02/15, nonresponsive Intubated, FiO2 35% No fever las 24 hours Rectal tube in place Tube feedings Vital Sign Vital Signs Vital Signs Date Time Temp Pulse Resp B/P (MAP) Pulse Ox O2 Delivery O2 Flow Rate FiO2 02/22/17 09:09 99 Ventilator 02/22/17 08:00 112 31 143/80 (101) 02/22/17 07:00 99.4 99.4 Physical Exam PHYSICAL EXAM GENERAL: Unresponsive, intubated HEENT: Pupils equally round, OGT, ETT LUNGS: Clear, labored HEART: S1S2, tachy ABD: Soft, No griamce or guarding to palpation, + rectal tube EXT: Generalized trace edema. 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 (02/13). clean [facility]. (02/15). Labs Lab Laboratory Tests Test 02/21/17 16:15 02/22/17 05:45 02/22/17 07:05 02/22/17 07:45 Glucose (Fingerstick) 140 mg/dL (70-99) Sodium Level 135 mmol/L (136-145) Potassium Level 4.4 mmol/L (3.5-5.1) Chloride Level 97 mmol/L (98-107) Carbon Dioxide Level 27 mmol/L (21-32) Anion Gap 11 (6-14) Blood Urea Nitrogen 91 mg/dL (7-20) Creatinine 3.9 mg/dL (0.6-1.0) Estimated GFR (Cockcroft-Gault) 14.5 BUN/Creatinine Ratio 23 (6-20) Glucose Level 159 mg/dL (70-99) Calcium Level 7.5 mg/dL (8.5-10.1) Total Bilirubin 1.1 mg/dL (0.2-1.0) Aspartate Amino Transf (AST/SGOT) 92 U/L (15-37) Alanine Aminotransferase (ALT/SGPT) 221 U/L (14-59) Alkaline Phosphatase 104 U/L (46-116) Total Protein 4.6 g/dL (6.4-8.2) Albumin 1.9 g/dL (3.4-5.0) Albumin/Globulin Ratio 0.7 (1.0-1.7) White Blood Count 51.2 x10^3/uL (4.0-11.0) Red Blood Count 1.39 x10^6/uL (3.50-5.40) Hemoglobin 4.4 g/dL (12.0-15.5) Hematocrit 13.2 % (36.0-47.0) Mean Corpuscular Volume 94 fL (79-100) Mean Corpuscular Hemoglobin 32 pg (25-35) Mean Corpuscular Hemoglobin Concent 34 g/dL (31-37) Red Cell Distribution Width 14.5 % (11.5-14.5) Platelet Count 177 x10^3/uL (140-400) Neutrophils (%) (Auto) 92 % (31-73) Lymphocytes (%) (Auto) 3 % (24-48) Monocytes (%) (Auto) 5 % (0-9) Eosinophils (%) (Auto) 0 % (0-3) Basophils (%) (Auto) 0 % (0-3) Neutrophils # (Auto) 47.3 x10^3uL (1.8-7.7) Lymphocytes # (Auto) 1.3 x10^3/uL (1.0-4.8) Monocytes # (Auto) 2.5 x10^3/uL (0.0-1.1) Eosinophils # (Auto) 0.0 x10^3/uL (0.0-0.7) Basophils # (Auto) 0.0 x10^3/uL (0.0-0.2) O2 Saturation 98 % (92-99) Arterial Blood pH 7.50 (7.35-7.45) Arterial Blood pCO2 at Patient Temp 28 mmHg (35-46) Arterial Blood pO2 at Patient Temp 158 mmHg (75-108) Arterial Blood HCO3 22 mmol/L (21-28) Arterial Blood Base Excess -2 mmol/L (-3-3) FiO2 35 Test 9/16/17 08:30 Hemoglobin 4.4 g/dL (12.0-15.5) Sodium Level 133 mmol/L (136-145) Potassium Level 4.2 mmol/L (3.5-5.1) Chloride Level 97 mmol/L (98-107) Carbon Dioxide Level 25 mmol/L (21-32) Anion Gap 11 (6-14) Blood Urea Nitrogen 99 mg/dL (7-20) Creatinine 3.9 mg/dL (0.6-1.0) Estimated GFR (Cockcroft-Gault) 14.5 Glucose Level 164 mg/dL (70-99) Calcium Level 7.9 mg/dL (8.5-10.1) CXR Impression: 1. Stable support lines and tubes. 2. Similar appearance of patchy interstitial changes predominantly involving the right lung. Micro 02/15. BC pending 02/12. BLOOD CULT RESULT 1 Final MICS are expressed in micrograms per mL Antibiotic RSLT#1 Ciprofloxacin R Gentamicin S Levofloxacin R Linezolid S Nitrofurantoin S Oxacillin R Penicillin R Rifampin S Tetracycline S Trimethoprim/Sulfa S Vancomycin S Objective Assessment Fever - better - procalcitonin mild elevation MRSA sepsis/bacteremia, POA. 02/12. -TTE no evidence veg; Repeat BC from 02/15 negative Anemia Encephalopathy S/P Cardiac arrest Respiratory failure COPD Leukocytosis, on steroids, trending up DARYA. Now on HD Schizophrenia MRSA nares positive Plan Plan of Care Cont Vanc Blood transfusion underway Await court decision Needs DNR/DNI Needs palliative extubation as overall prognosis is poor Critically ill Attending Co-Sign The patient was seen and interviewed as well as examined at the bedside. The chart was reviewed. The case was discussed. Agree with the plan of care. SIRIA CARPENTER APRN Feb 22, 2017 09:33 MILAGROS GREER MD Feb 22, 2017 14:12
[2017-02-22] MEDS: MINERAL OIL/PETROLATUM,WHITE OPHTH OINT 3.5GM TUBE. OU PRN (09:36)
[2017-02-22 09:40] LABS: PLT ESTIMATE ADEQUATE (ADEQUATE); TOXIC GRANULATION SLIGHT
--- NOTE | 2017-02-22 11:47 | PDOC ---
SUBJECTIVE ROS DARYA/ ATN Doing same Remains intubated and no sedation OBJECTIVE Vital Signs Vital Signs Date Time Temp Pulse Resp B/P (MAP) Pulse Ox O2 Delivery O2 Flow Rate FiO2 02/22/17 11:28 99 Ventilator 02/22/17 11:26 98.5 124 34 159/76 98.5 I & 0 Intake and Output 02/23/17 07:00 Intake Total 0 ml Output Total 30 ml Balance -30 ml Tube Feeding 0 ml Output Urine Total 30 ml PHYSICAL EXAM Physical Exam GEN: Not sedated but min responsive on the Vent EYES: Sclera Anciteric, Conjunctiva Normal EN: No EN Drainage, Mucous Membranes moist NECK: + JVD, + JVP, Supple, no palp Thyromegaly CVS: S1S2, ? Murmur, No Gallop, No Rub,+ Edema upper ext RESP: no Rales, no Rhonchi,+ Acc. Muscle Use GI: BS hypo ve, NO Bruit, Non Tender, Non Distended : no CVA tenderness, no Suprapubic Tenderness DIAGNOSIS/ASSESSMENT Assessment & Plan ARF/ ATN : Current fluid and E-lyte status does not necessitate emergent need for dialysis. Will re-evaluate for dialysis in the am and continue on MWF schedule. ANEMIA; Aranap as ordered, Transfuse as needed (onoing) HTN: Current BP reviewed. no pressors yet Oligo-anuria due to ATN - May need HD later this am Poor PRognosis Problems: COMMENT/RELEVANT DATA Meds Current Medications Medications (Trade) Dose Ordered Sig/Bryce Start Time Stop Time Status Last Admin Dose Admin Acetaminophen (Acetaminophen Supp) 650 mg PRN Q6HRS PRN 02/13/17 17:00 Acetaminophen (Tylenol) 650 mg PRN Q6HRS PRN 02/13/17 17:00 Albumin Human 200 ml @ 200 mls/hr 1X PRN PRN 02/19/17 09:15 02/19/17 15:14 DC Amino Acids/ Glycerin/ Electrolytes 1,000 ml @ 80 mls/hr [id number] 02/15/17 08:45 02/15/17 15:14 DC 02/15/17 09:32 80 MLS/HR Aspirin (Aspirin) 300 mg DAILY 02/13/17 09:00 02/22/17 09:27 300 MG Bisacodyl (Dulcolax Supp) 10 mg PRN DAILY PRN 02/17/17 15:00 Calcium Chloride 1,000 mg STK-MED ONCE 02/12/17 10:00 02/13/17 16:27 DC Daptomycin 340 mg/ Sodium Chloride 50 ml @ 100 mls/hr QODAY 02/17/17 09:00 02/18/17 07:22 DC 02/17/17 12:22 100 MLS/HR Dextrose (Dextrose 50%-Water Syringe) 25 gm STK-MED ONCE 02/12/17 10:00 02/13/17 16:27 DC Dextrose/Sodium Chloride 1,000 ml @ 40 mls/hr Q24H 02/15/17 15:15 02/20/17 21:31 40 MLS/HR Diphenhydramine HCl (Benadryl) 25 mg 1X PRN PRN 02/21/17 08:15 02/22/17 08:14 DC Epinephrine HCl (EPINEPHrine SYRINGE) 1 mg STK-MED ONCE 02/12/17 10:00 02/13/17 16:27 DC Famotidine (Pepcid) 20 mg DAILY 02/15/17 09:00 02/22/17 09:27 20 MG Fentanyl Citrate 30 ml @ 2.5 mls/hr CONT PRN PRN 02/12/17 17:00 02/20/17 10:36 DC 02/14/17 03:27 2.5 MLS/HR Fentanyl Citrate (Fentanyl 2ml Vial) 25 mcg PRN Q30MIN PRN 02/12/17 17:00 Furosemide (Lasix) 40 mg 1X ONCE 02/15/17 08:45 02/15/17 09:18 DC Heparin Sodium (Porcine) (Heparin Sodium) 800 unit PRN Q6HRS PRN 02/13/17 11:45 02/14/17 13:53 DC 02/14/17 02:34 800 UNIT Heparin Sodium (Porcine) (Heparin Sq) 5,000 unit Q8HRS 02/17/17 14:00 02/22/17 05:49 5,000 UNIT Heparin Sodium/ Dextrose 500 ml @ 16.5 mls/hr CONT PRN 02/13/17 11:45 02/14/17 13:53 DC 02/13/17 12:47 16.5 MLS/HR Heparin Sodium/ Sodium Chloride 6,000 unit 1X ONCE 02/15/17 15:45 02/15/17 15:46 DC Info (Anti-Coagulation Monitoring By Pharmacy) 1 each PRN DAILY PRN 02/13/17 13:00 02/14/17 16:28 DC Info (PHARMACY MONITORING -- do not chart) 1 each PRN DAILY PRN 02/21/17 08:15 Levetiracetam 500 mg/Sodium Chloride 100 ml @ 400 mls/hr Q12HR 02/17/17 21:00 02/22/17 09:27 400 MLS/HR Lidocaine/Sodium Bicarbonate (Buffered Lidocaine 1%) 3 ml 1X ONCE 02/15/17 15:45 02/15/17 15:46 DC 02/15/17 16:00 3 ML Lorazepam (Ativan) 1 mg PRN Q30MIN PRN 02/12/17 17:00 Magnesium Sulfate/ Dextrose 50 ml @ 25 mls/hr PRN DAILY PRN 02/13/17 10:45 Meperidine HCl (Demerol) 12.5 mg PRN Q30MIN PRN 02/12/17 17:00 Methylprednisolone Sodium Succinate (SOLU-Medrol 40MG VIAL) 100 mg TID 02/12/17 18:00 02/14/17 12:00 DC 02/14/17 11:01 100 MG Methylprednisolone Sodium Succinate (SOLU-Medrol 125MG VIAL) 100 mg TID 02/14/17 18:00 02/22/17 09:26 100 MG Multi-Ingred Cream/Lotion/Oil/ Oint (Artificial Tears Eye Oint) 1 silvestre PRN Q6HRS PRN 02/12/17 17:00 02/22/17 09:36 1 SILVESTRE Norepinephrine Bitartrate 250 ml @ 0 mls/hr CONT PRN 02/14/17 15:30 Cancel Piperacillin Sod/ Tazobactam Sod (Zosyn Per Pharmacy) 1 each PRN DAILY PRN 02/12/17 19:15 02/18/17 07:22 DC Piperacillin Sod/ Tazobactam Sod 2.25 gm/Sodium Chloride 50 ml @ 100 mls/hr Q8HRS 02/16/17 14:00 02/18/17 07:22 DC 02/18/17 05:55 100 MLS/HR Piperacillin Sod/ Tazobactam Sod 3.375 gm/Sodium Chloride 50 ml @ 100 mls/hr Q6HRS 02/12/17 19:30 02/15/17 09:37 DC 02/15/17 05:58 100 MLS/HR Polyethylene Glycol (miraLAX PACKET) 17 gm PRN DAILY PRN 02/17/17 15:00 Propofol 100 ml @ 0 mls/hr CONT PRN 02/12/17 17:00 02/20/17 10:36 DC Sodium Bicarbonate 50 meq STK-MED ONCE 02/12/17 10:00 02/13/17 16:27 DC Sodium Chloride 1,000 ml @ 400 mls/hr Q2H30M PRN 02/21/17 08:14 02/21/17 20:13 DC Sodium Chloride (Normal Saline Flush) 10 ml 1X PRN PRN 02/21/17 08:15 02/22/17 08:14 DC Vancomycin HCl (Vanco Per Pharmacy) 1 each PRN DAILY PRN 02/18/17 07:30 02/22/17 08:35 1 EACH Vancomycin HCl 1.5 gm/Sodium Chloride 500 ml @ 250 mls/hr 1X ONCE 02/18/17 14:30 02/18/17 16:29 DC 02/18/17 14:43 250 MLS/HR Vancomycin HCl 500 mg/Sodium Chloride 100 ml @ 100 mls/hr QMWF 02/21/17 16:00 02/21/17 16:17 100 MLS/HR Vancomycin HCl 750 mg/Sodium Chloride 250 ml @ 250 mls/hr Q24H 02/13/17 20:00 02/14/17 07:57 DC 02/13/17 20:34 250 MLS/HR Vancomycin HCl 1 gm/Sodium Chloride 250 ml @ 250 mls/hr 1X ONCE 02/12/17 19:30 02/12/17 20:29 DC 02/12/17 20:00 250 MLS/HR Vecuronium [place] (Norcuron Bolus) 5 mg PRN Q30MIN PRN 02/13/17 11:15 Warfarin Sodium (Coumadin Per Pharmacy) 1 each PRN DAILY PRN 02/13/17 11:45 Cancel Lab Laboratory Tests Test 02/21/17 16:15 02/22/17 05:45 02/22/17 07:05 02/22/17 07:45 Glucose (Fingerstick) 140 mg/dL (70-99) Sodium Level 135 mmol/L (136-145) Potassium Level 4.4 mmol/L (3.5-5.1) Chloride Level 97 mmol/L (98-107) Carbon Dioxide Level 27 mmol/L (21-32) Anion Gap 11 (6-14) Blood Urea Nitrogen 91 mg/dL (7-20) Creatinine 3.9 mg/dL (0.6-1.0) Estimated GFR (Cockcroft-Gault) 14.5 BUN/Creatinine Ratio 23 (6-20) Glucose Level 159 mg/dL (70-99) Calcium Level 7.5 mg/dL (8.5-10.1) Total Bilirubin 1.1 mg/dL (0.2-1.0) Aspartate Amino Transf (AST/SGOT) 92 U/L (15-37) Alanine Aminotransferase (ALT/SGPT) 221 U/L (14-59) Alkaline Phosphatase 104 U/L (46-116) Total Protein 4.6 g/dL (6.4-8.2) Albumin 1.9 g/dL (3.4-5.0) Albumin/Globulin Ratio 0.7 (1.0-1.7) White Blood Count 51.2 x10^3/uL (4.0-11.0) Red Blood Count 1.39 x10^6/uL (3.50-5.40) Hemoglobin 4.4 g/dL (12.0-15.5) Hematocrit 13.2 % (36.0-47.0) Mean Corpuscular Volume 94 fL (79-100) Mean Corpuscular Hemoglobin 32 pg (25-35) Mean Corpuscular Hemoglobin Concent 34 g/dL (31-37) Red Cell Distribution Width 14.5 % (11.5-14.5) Platelet Count 177 x10^3/uL (140-400) Neutrophils (%) (Auto) 92 % (31-73) Lymphocytes (%) (Auto) 3 % (24-48) Monocytes (%) (Auto) 5 % (0-9) Eosinophils (%) (Auto) 0 % (0-3) Basophils (%) (Auto) 0 % (0-3) Neutrophils # (Auto) 47.3 x10^3uL (1.8-7.7) Lymphocytes # (Auto) 1.3 x10^3/uL (1.0-4.8) Monocytes # (Auto) 2.5 x10^3/uL (0.0-1.1) Eosinophils # (Auto) 0.0 x10^3/uL (0.0-0.7) Basophils # (Auto) 0.0 x10^3/uL (0.0-0.2) Segmented Neutrophils % 84 % (35-66) Band Neutrophils % 5 % (0-9) Lymphocytes % 3 % (24-48) Monocytes % 1 % (0-10) Metamyelocytes % 7 % (0-0) Toxic Granulation Slight Platelet Estimate Adequate (ADEQUATE) O2 Saturation 98 % (92-99) Arterial Blood pH 7.50 (7.35-7.45) Arterial Blood pCO2 at Patient Temp 28 mmHg (35-46) Arterial Blood pO2 at Patient Temp 158 mmHg (75-108) Arterial Blood HCO3 22 mmol/L (21-28) Arterial Blood Base Excess -2 mmol/L (-3-3) FiO2 35 Test 02/22/17 08:30 Hemoglobin 4.4 g/dL (12.0-15.5) Sodium Level 133 mmol/L (136-145) Potassium Level 4.2 mmol/L (3.5-5.1) Chloride Level 97 mmol/L (98-107) Carbon Dioxide Level 25 mmol/L (21-32) Anion Gap 11 (6-14) Blood Urea Nitrogen 99 mg/dL (7-20) Creatinine 3.9 mg/dL (0.6-1.0) Estimated GFR (Cockcroft-Gault) 14.5 Glucose Level 164 mg/dL (70-99) Calcium Level 7.9 mg/dL (8.5-10.1) ELIAZAR GREER MD Feb 22, 2017 11:47
--- NOTE | 2017-02-22 12:24 | PDOC ---
PROGRESS NOTES Chief Complaint Chief Complaint cardiac arrest, asystole, unknown down time, s/p hypothermia Anoxic encephalopathy, off sedation, no response Normal corrected calcium Oliguric renal OLIGURIC RENAL FAILURE [facility] resident HX schiz by documentation Sepsis with organ failure, needing pressor Thrombocytopenia ANemia, normocytic Hyponatremia Acute precipitous drop hgb History of Present Illness History of Present Illness No response from pt. Ethics committee on case. Awaiting court results re: allow natural Vitals Vitals Vital Signs Date Time Temp Pulse Resp B/P (MAP) Pulse Ox O2 Delivery O2 Flow Rate FiO2 02/22/17 11:44 98.5 115 28 127/62 98.5 02/22/17 11:28 99 Ventilator Physical Exam General: Other (On vent) Heart: Regular rate, Normal S1, Normal S2, No murmurs, Gallops Lungs: Clear, Other (No acute distress noted) Abdomen: Normal bowel sounds, Soft, No tenderness, No hepatosplenomegaly, No masses Extremities: No clubbing, No cyanosis, No edema, Normal pulses, No tenderness/ swelling Skin: No breakdown, No significant lesion Labs LABS Laboratory Tests Test 02/21/17 16:15 02/22/17 05:45 02/22/17 07:05 02/22/17 07:45 Glucose (Fingerstick) 140 mg/dL (70-99) Sodium Level 135 mmol/L (136-145) Potassium Level 4.4 mmol/L (3.5-5.1) Chloride Level 97 mmol/L (98-107) Carbon Dioxide Level 27 mmol/L (21-32) Anion Gap 11 (6-14) Blood Urea Nitrogen 91 mg/dL (7-20) Creatinine 3.9 mg/dL (0.6-1.0) Estimated GFR (Cockcroft-Gault) 14.5 BUN/Creatinine Ratio 23 (6-20) Glucose Level 159 mg/dL (70-99) Calcium Level 7.5 mg/dL (8.5-10.1) Total Bilirubin 1.1 mg/dL (0.2-1.0) Aspartate Amino Transf (AST/SGOT) 92 U/L (15-37) Alanine Aminotransferase (ALT/SGPT) 221 U/L (14-59) Alkaline Phosphatase 104 U/L (46-116) Total Protein 4.6 g/dL (6.4-8.2) Albumin 1.9 g/dL (3.4-5.0) Albumin/Globulin Ratio 0.7 (1.0-1.7) White Blood Count 51.2 x10^3/uL (4.0-11.0) Red Blood Count 1.39 x10^6/uL (3.50-5.40) Hemoglobin 4.4 g/dL (12.0-15.5) Hematocrit 13.2 % (36.0-47.0) Mean Corpuscular Volume 94 fL (79-100) Mean Corpuscular Hemoglobin 32 pg (25-35) Mean Corpuscular Hemoglobin Concent 34 g/dL (31-37) Red Cell Distribution Width 14.5 % (11.5-14.5) Platelet Count 177 x10^3/uL (140-400) Neutrophils (%) (Auto) 92 % (31-73) Lymphocytes (%) (Auto) 3 % (24-48) Monocytes (%) (Auto) 5 % (0-9) Eosinophils (%) (Auto) 0 % (0-3) Basophils (%) (Auto) 0 % (0-3) Neutrophils # (Auto) 47.3 x10^3uL (1.8-7.7) Lymphocytes # (Auto) 1.3 x10^3/uL (1.0-4.8) Monocytes # (Auto) 2.5 x10^3/uL (0.0-1.1) Eosinophils # (Auto) 0.0 x10^3/uL (0.0-0.7) Basophils # (Auto) 0.0 x10^3/uL (0.0-0.2) Segmented Neutrophils % 84 % (35-66) Band Neutrophils % 5 % (0-9) Lymphocytes % 3 % (24-48) Monocytes % 1 % (0-10) Metamyelocytes % 7 % (0-0) Toxic Granulation Slight Platelet Estimate Adequate (ADEQUATE) O2 Saturation 98 % (92-99) Arterial Blood pH 7.50 (7.35-7.45) Arterial Blood pCO2 at Patient Temp 28 mmHg (35-46) Arterial Blood pO2 at Patient Temp 158 mmHg (75-108) Arterial Blood HCO3 22 mmol/L (21-28) Arterial Blood Base Excess -2 mmol/L (-3-3) FiO2 35 Test 9/16/17 08:30 Hemoglobin 4.4 g/dL (12.0-15.5) Sodium Level 133 mmol/L (136-145) Potassium Level 4.2 mmol/L (3.5-5.1) Chloride Level 97 mmol/L (98-107) Carbon Dioxide Level 25 mmol/L (21-32) Anion Gap 11 (6-14) Blood Urea Nitrogen 99 mg/dL (7-20) Creatinine 3.9 mg/dL (0.6-1.0) Estimated GFR (Cockcroft-Gault) 14.5 Glucose Level 164 mg/dL (70-99) Calcium Level 7.9 mg/dL (8.5-10.1) Review of Systems Review of Systems Exam limited b/c pt unresponsive Assessment and Plan Assessmemt and Plan Pt seen in ICU Vent settings: AC 16 O2: 35% PEEP: 5 Vt: 420 mL Vmax: 50 cardiac arrest, asystole, unknown down time, s/p hypothermia Anoxic encephalopathy, off sedation, no response Normal corrected calcium Oliguric renal OLIGURIC RENAL FAILURE SNU resident HX schiz by documentation Sepsis with organ failure, needing pressor Thrombocytopenia ANemia, normocytic Hyponatremia Acute precipitous drop hgb PLAN: Continue to monitor. Palliative care HD per renal Supportive care Awaiting court orders etc to allow natural Problems: Comment Review of Relevant I have reviewed the following items reji (where applicable) has been applied. Labs Laboratory Tests Test 02/20/17 12:19 02/20/17 16:04 02/20/17 23:44 02/21/17 06:18 Glucose (Fingerstick) 141 mg/dL (70-99) 155 mg/dL (70-99) 144 mg/dL (70-99) 159 mg/dL (70-99) Test 02/21/17 07:45 02/21/17 16:15 02/22/17 05:45 02/22/17 07:05 O2 Saturation 96 % (92-99) Arterial Blood pH 7.35 (7.35-7.45) Arterial Blood pCO2 at Patient Temp 45 mmHg (35-46) Arterial Blood pO2 at Patient Temp 100 mmHg (75-108) Arterial Blood HCO3 24 mmol/L (21-28) Arterial Blood Base Excess -2 mmol/L (-3-3) FiO2 40 Glucose (Fingerstick) 140 mg/dL (70-99) Sodium Level 135 mmol/L (136-145) Potassium Level 4.4 mmol/L (3.5-5.1) Chloride Level 97 mmol/L (98-107) Carbon Dioxide Level 27 mmol/L (21-32) Anion Gap 11 (6-14) Blood Urea Nitrogen 91 mg/dL (7-20) Creatinine 3.9 mg/dL (0.6-1.0) Estimated GFR (Cockcroft-Gault) 14.5 BUN/Creatinine Ratio 23 (6-20) Glucose Level 159 mg/dL (70-99) Calcium Level 7.5 mg/dL (8.5-10.1) Total Bilirubin 1.1 mg/dL (0.2-1.0) Aspartate Amino Transf (AST/SGOT) 92 U/L (15-37) Alanine Aminotransferase (ALT/SGPT) 221 U/L (14-59) Alkaline Phosphatase 104 U/L (46-116) Total Protein 4.6 g/dL (6.4-8.2) Albumin 1.9 g/dL (3.4-5.0) Albumin/Globulin Ratio 0.7 (1.0-1.7) White Blood Count 51.2 x10^3/uL (4.0-11.0) Red Blood Count 1.39 x10^6/uL (3.50-5.40) Hemoglobin 4.4 g/dL (12.0-15.5) Hematocrit 13.2 % (36.0-47.0) Mean Corpuscular Volume 94 fL (79-100) Mean Corpuscular Hemoglobin 32 pg (25-35) Mean Corpuscular Hemoglobin Concent 34 g/dL (31-37) Red Cell Distribution Width 14.5 % (11.5-14.5) Platelet Count 177 x10^3/uL (140-400) Neutrophils (%) (Auto) 92 % (31-73) Lymphocytes (%) (Auto) 3 % (24-48) Monocytes (%) (Auto) 5 % (0-9) Eosinophils (%) (Auto) 0 % (0-3) Basophils (%) (Auto) 0 % (0-3) Neutrophils # (Auto) 47.3 x10^3uL (1.8-7.7) Lymphocytes # (Auto) 1.3 x10^3/uL (1.0-4.8) Monocytes # (Auto) 2.5 x10^3/uL (0.0-1.1) Eosinophils # (Auto) 0.0 x10^3/uL (0.0-0.7) Basophils # (Auto) 0.0 x10^3/uL (0.0-0.2) Segmented Neutrophils % 84 % (35-66) Band Neutrophils % 5 % (0-9) Lymphocytes % 3 % (24-48) Monocytes % 1 % (0-10) Metamyelocytes % 7 % (0-0) Toxic Granulation Slight Platelet Estimate Adequate (ADEQUATE) Test 02/22/17 07:45 02/22/17 08:30 O2 Saturation 98 % (92-99) Arterial Blood pH 7.50 (7.35-7.45) Arterial Blood pCO2 at Patient Temp 28 mmHg (35-46) Arterial Blood pO2 at Patient Temp 158 mmHg (75-108) Arterial Blood HCO3 22 mmol/L (21-28) Arterial Blood Base Excess -2 mmol/L (-3-3) FiO2 35 Hemoglobin 4.4 g/dL (12.0-15.5) Sodium Level 133 mmol/L (136-145) Potassium Level 4.2 mmol/L (3.5-5.1) Chloride Level 97 mmol/L (98-107) Carbon Dioxide Level 25 mmol/L (21-32) Anion Gap 11 (6-14) Blood Urea Nitrogen 99 mg/dL (7-20) Creatinine 3.9 mg/dL (0.6-1.0) Estimated GFR (Cockcroft-Gault) 14.5 Glucose Level 164 mg/dL (70-99) Calcium Level 7.9 mg/dL (8.5-10.1) Laboratory Tests Test 02/21/17 16:15 02/22/17 05:45 02/22/17 07:05 02/22/17 07:45 Glucose (Fingerstick) 140 mg/dL (70-99) Sodium Level 135 mmol/L (136-145) Potassium Level 4.4 mmol/L (3.5-5.1) Chloride Level 97 mmol/L (98-107) Carbon Dioxide Level 27 mmol/L (21-32) Anion Gap 11 (6-14) Blood Urea Nitrogen 91 mg/dL (7-20) Creatinine 3.9 mg/dL (0.6-1.0) Estimated GFR (Cockcroft-Gault) 14.5 BUN/Creatinine Ratio 23 (6-20) Glucose Level 159 mg/dL (70-99) Calcium Level 7.5 mg/dL (8.5-10.1) Total Bilirubin 1.1 mg/dL (0.2-1.0) Aspartate Amino Transf (AST/SGOT) 92 U/L (15-37) Alanine Aminotransferase (ALT/SGPT) 221 U/L (14-59) Alkaline Phosphatase 104 U/L (46-116) Total Protein 4.6 g/dL (6.4-8.2) Albumin 1.9 g/dL (3.4-5.0) Albumin/Globulin Ratio 0.7 (1.0-1.7) White Blood Count 51.2 x10^3/uL (4.0-11.0) Red Blood Count 1.39 x10^6/uL (3.50-5.40) Hemoglobin 4.4 g/dL (12.0-15.5) Hematocrit 13.2 % (36.0-47.0) Mean Corpuscular Volume 94 fL (79-100) Mean Corpuscular Hemoglobin 32 pg (25-35) Mean Corpuscular Hemoglobin Concent 34 g/dL (31-37) Red Cell Distribution Width 14.5 % (11.5-14.5) Platelet Count 177 x10^3/uL (140-400) Neutrophils (%) (Auto) 92 % (31-73) Lymphocytes (%) (Auto) 3 % (24-48) Monocytes (%) (Auto) 5 % (0-9) Eosinophils (%) (Auto) 0 % (0-3) Basophils (%) (Auto) 0 % (0-3) Neutrophils # (Auto) 47.3 x10^3uL (1.8-7.7) Lymphocytes # (Auto) 1.3 x10^3/uL (1.0-4.8) Monocytes # (Auto) 2.5 x10^3/uL (0.0-1.1) Eosinophils # (Auto) 0.0 x10^3/uL (0.0-0.7) Basophils # (Auto) 0.0 x10^3/uL (0.0-0.2) Segmented Neutrophils % 84 % (35-66) Band Neutrophils % 5 % (0-9) Lymphocytes % 3 % (24-48) Monocytes % 1 % (0-10) Metamyelocytes % 7 % (0-0) Toxic Granulation Slight Platelet Estimate Adequate (ADEQUATE) O2 Saturation 98 % (92-99) Arterial Blood pH 7.50 (7.35-7.45) Arterial Blood pCO2 at Patient Temp 28 mmHg (35-46) Arterial Blood pO2 at Patient Temp 158 mmHg (75-108) Arterial Blood HCO3 22 mmol/L (21-28) Arterial Blood Base Excess -2 mmol/L (-3-3) FiO2 35 Test 02/22/17 08:30 Hemoglobin 4.4 g/dL (12.0-15.5) Sodium Level 133 mmol/L (136-145) Potassium Level 4.2 mmol/L (3.5-5.1) Chloride Level 97 mmol/L (98-107) Carbon Dioxide Level 25 mmol/L (21-32) Anion Gap 11 (6-14) Blood Urea Nitrogen 99 mg/dL (7-20) Creatinine 3.9 mg/dL (0.6-1.0) Estimated GFR (Cockcroft-Gault) 14.5 Glucose Level 164 mg/dL (70-99) Calcium Level 7.9 mg/dL (8.5-10.1) Microbiology 02/15/17 Blood Culture - Final, Complete NO GROWTH AFTER 5 DAYS 02/12/17 Urine Culture - Final, Complete 02/12/17 Urine Culture Result 1 (ELIZABETH) - Final, Complete Medications Current Medications Calcium Chloride 1,000 mg 1X ONCE IV Last administered on 02/12/17 15:35; Start 02/12/17 at 16:00; Stop 02/12/17 at 16:35; Status DC Dextrose (Dextrose 50%-Water Syringe) 25 gm 1X ONCE IV Last administered on 15:33; Start 02/12/17 at 16:00; Stop 02/12/17 at 16:35; Status DC Sodium Bicarbonate 50 meq 1X ONCE IV Last administered on 02/12/17 15:35; Start 02/12/17 at 16:00; Stop 02/12/17 at 16:35; Status DC Furosemide (Lasix) 40 mg 1X ONCE IVP Last administered on 02/12/17 16:42; Start 02/12/17 at 16:30; Stop 02/12/17 at 16:35; Status DC Sodium Chloride 1,000 ml @ 1,000 mls/hr Q1H IV Last administered on 02/12/17 15:50; Start 02/12/17 at 16:57; Stop 02/13/17 at 07:23; Status DC Fentanyl Citrate (Fentanyl 2ml Vial) 25 mcg PRN Q30MIN PRN IV SED; Start at 17:00 Lorazepam (Ativan) 1 mg PRN Q30MIN PRN IV SEDATION; Start 02/12/17 at 17:00 Fentanyl Citrate 30 ml @ 2.5 mls/hr CONT PRN PRN IV IVF Last administered on 03:27; Start 02/12/17 at 17:00; Stop 02/20/17 at 10:36; Status DC Propofol 100 ml @ 0 mls/hr CONT PRN IV SEE I/O RECORD; Start 02/12/17 at 17:00; Stop 02/20/17 at 10:36; Status DC Vecuronium [place] (Norcuron Bolus) DOSE AT 0.1 mg/kg PRN Q30MIN PRN IV SHIVERING Last administered on 02/12/17 19:46; Start 02/12/17 at 17:00; Stop 02/13 at 11:01; Status DC Meperidine HCl (Demerol) 12.5 mg PRN Q30MIN PRN IV SHIVERING; Start 02/12/17 at 17:00 Multi-Ingred Cream/Lotion/Oil/ Oint (Artificial Tears Eye Oint) 1 silvestre PRN Q6HRS PRN OU 0.5 INCH FOR DRY EYE Last administered on 02/22/17 09:36; Start at 17:00 Famotidine (Pepcid) 20 mg BID IVP Last administered on 02/14/17 10:47; Start at 09:00; Stop 02/14/17 at 16:23; Status DC Aspirin (Aspirin) 300 mg DAILY [place] Last administered on 02/22/17 09:27; Start 02/13/17 at 09:00 Sodium Chloride (Normal Saline Flush) 3 ml QSHIFT PRN IV AFTER MEDS AND BLOOD DRAWS; Start 02/12/17 at 17:00 Acetaminophen (Tylenol) 650 mg Q6HRS NG Last administered on 02/13/17 05:51; Start 02/12/17 at 18:00; Stop 02/13/17 at 17:59; Status DC Acetaminophen (Acetaminophen Supp) 650 mg PRN Q6HRS PRN WA MILD PAIN / TEMP; Start 02/13/17 at 17:00 Acetaminophen (Tylenol) 650 mg PRN Q6HRS PRN NG MILD PAIN / TEMP; Start at 17:00 Info 1 ea DAILY PRN MC PER PROTOCOL; Start 02/14/17 at 17:00 Sodium Chloride 500 ml @ 500 mls/hr 1X ONCE IV Last administered on 02/12/17 16:30; Start 02/12/17 at 17:15; Stop 02/12/17 at 18:14; Status DC Sodium Chloride 500 ml @ 500 mls/hr 1X ONCE IV Last administered on 02/12/17 16:50; Start 02/12/17 at 17:15; Stop 02/12/17 at 18:14; Status DC Sodium Chloride 1,000 ml @ 100 mls/hr Q10H IV Last administered on 02/13/17 06 :36; Start 02/12/17 at 19:00; Stop 02/13/17 at 10:51; Status DC Famotidine (Pepcid) 20 mg 1X ONCE PO Last administered on 02/12/17 19:57; Start 02/12/17 at 17:30; Stop 02/12/17 at 17:34; Status DC Methylprednisolone Sodium Succinate (SOLU-Medrol 40MG VIAL) 100 mg TID IV Last administered on 02/14/17 11:01; Start 02/12/17 at 18:00; Stop 02/14/17 at 12:00; Status DC Sodium Chloride 1,000 ml @ 1,000 mls/hr 1X ONCE IV Last administered on 19:31; Start 02/12/17 at 18:15; Stop 02/12/17 at 19:14; Status DC Piperacillin Sod/ Tazobactam Sod (Zosyn Per Pharmacy) 1 each PRN DAILY PRN MC SEE COMMENTS; Start 02/12/17 at 19:15; Stop 02/18/17 at 07:22; Status DC Vancomycin HCl (Vanco Per Pharmacy) 1 each PRN DAILY PRN MC SEE COMMENTS Last administered on 02/13/17 16:50; Start 02/12/17 at 19:15; Stop 02/14/17 at 07:57; Status DC Piperacillin Sod/ Tazobactam Sod 3.375 gm/Sodium Chloride 50 ml @ 100 mls/hr Q6HRS IV Last administered on 02/15/17 05:58; Start 02/12/17 at 19:30; Stop 02/15 at 09:37; Status DC Vancomycin HCl 1 gm/Sodium Chloride 250 ml @ 250 mls/hr 1X ONCE IV Last administered on 02/12/17 20:00; Start 02/12/17 at 19:30; Stop 02/12/17 at 20:29; Status DC Sodium Bicarbonate 50 meq 1X ONCE IV Last administered on 02/12/17 19:59; Start 02/12/17 at 19:30; Stop 02/12/17 at 19:31; Status DC Norepinephrine Bitartrate 250 ml @ 0 mls/hr CONT PRN IV SEE I/O RECORD Last administered on 02/16/17 07:18; Start 02/12/17 at 19:30; Stop 02/20/17 at 10:36 ; Status DC Norepinephrine Bitartrate 250 ml @ As Directed STK-MED ONCE IV ; Start 02/12/17 at 19:25; Stop 02/12/17 at 19:26; Status DC Vancomycin HCl 750 mg/Sodium Chloride 250 ml @ 250 mls/hr Q24H IV Last administered on 02/13/17 20:34; Start 02/13/17 at 20:00; Stop 02/14/17 at 07:57; Status DC Vancomycin HCl 1 each 1X ONCE MC ; Start 02/14/17 at 19:30; Stop 02/14/17 at 19: 31; Status Cancel Sodium Chloride 1,000 ml @ 1,000 mls/hr 1X ONCE IV Last administered on 05:05; Start 02/13/17 at 04:45; Stop 02/13/17 at 05:44; Status DC Sodium Chloride 1,000 ml @ 1,000 mls/hr 1X ONCE IV Last administered on 05:35; Start 02/13/17 at 05:30; Stop 02/13/17 at 06:29; Status DC Magnesium Sulfate/ Dextrose 50 ml @ 25 mls/hr PRN DAILY PRN IV for Mag < 1.7 on am labs; Start 02/13/17 at 10:45 Dextrose/Sodium Chloride 1,000 ml @ 75 mls/hr [id number] IV Last administered on 02/15/17 01:52; Start 02/13/17 at 11:00; Stop 02/15/17 at 08:52; Status DC Vecuronium [place] (Norcuron Bolus) 5 mg PRN Q30MIN PRN IV SHIVERING; Start 02/13/17 at 11:15 Lidocaine/Sodium Bicarbonate (Buffered Lidocaine 1%) 3 ml 1X ONCE IJ Last administered on 02/13/17 11:40; Start 02/13/17 at 11:15; Stop 02/13/17 at 11:26; Status DC Heparin Sodium/ Sodium Chloride 60 unit 1X ONCE IV Last administered on 11:40; Start 02/13/17 at 11:15; Stop 02/13/17 at 11:26; Status DC Lidocaine/Sodium Bicarbonate (Buffered Lidocaine 1%) 20 ml STK-MED ONCE IJ ; Start 02/13/17 at 11:22; Stop 02/13/17 at 11:29; Status DC Heparin Sodium (Porcine) (Heparin Sodium) 2,075 unit 1X ONCE IV Last administered on 02/13/17 12:45; Start 02/13/17 at 11:45; Stop 02/13/17 at 11:56; Status DC Heparin Sodium/ Dextrose 500 ml @ 16.5 mls/hr CONT PRN IV SEE I/O RECORD Last administered on 02/13/17 12:47; Start 02/13/17 at 11:45; Stop 02/14/17 at 13:53; Status DC Heparin Sodium (Porcine) (Heparin Sodium) 1,550 unit PRN Q6HRS PRN IV FOR UFH LEVEL LESS THAN 0.2 Last administered on 02/13/17 20:22; Start 02/13/17 at 11:45 ; Stop 02/14/17 at 13:53; Status DC Heparin Sodium (Porcine) (Heparin Sodium) 800 unit PRN Q6HRS PRN IV FOR UFH LEVEL 0.2 - 0.29 Last administered on 02/14/17 02:34; Start 02/13/17 at 11:45; Stop 02/14/17 at 13:53; Status DC Warfarin Sodium (Coumadin Per Pharmacy) 1 each PRN DAILY PRN MC PER PROTOCOL; Start 02/13/17 at 11:45; Status Cancel Info (Anti-Coagulation Monitoring By Pharmacy) 1 each PRN DAILY PRN MC SEE COMMENTS; Start 02/13/17 at 13:00; Stop 02/14/17 at 16:28; Status DC Calcium Chloride 1,000 mg STK-MED ONCE IV ; Start 02/12/17 at 10:00; Stop at 16:27; Status DC Epinephrine HCl (EPINEPHrine SYRINGE) 1 mg STK-MED ONCE .ROUTE ; Start 02/12/17 at 10:00; Stop 02/13/17 at 16:27; Status DC Dextrose (Dextrose 50%-Water Syringe) 25 gm STK-MED ONCE IV ; Start 02/12/17 at 10:00; Stop 02/13/17 at 16:27; Status DC Sodium Bicarbonate 50 meq STK-MED ONCE .ROUTE ; Start 02/12/17 at 10:00; Stop 02/13/17 at 16:27; Status DC Methylprednisolone Sodium Succinate (SOLU-Medrol 125MG VIAL) 100 mg TID IV Last administered on 02/22/17 09:26; Start 02/14/17 at 18:00 Norepinephrine Bitartrate 250 ml @ 0 mls/hr CONT PRN IV SEE I/O RECORD; Start 02/14/17 at 15:30; Status Cancel Famotidine (Pepcid) 20 mg DAILY IVP Last administered on 02/22/17 09:27; Start 02/15/17 at 09:00 Amino Acids/ Glycerin/ Electrolytes 1,000 ml @ 80 mls/hr [id number] IV Last administered on 02/15/17 09:32; Start 02/15/17 at 08:45; Stop 02/15/17 at 15:14; Status DC Albumin Human 100 ml @ 100 mls/hr 1X ONCE IV Last administered on 02/15/17 09 :30; Start 02/15/17 at 08:45; Stop 02/15/17 at 09:44; Status DC Furosemide (Lasix) 40 mg 1X ONCE IVP ; Start 02/15/17 at 08:45; Stop 02/15/17 at 09:18; Status DC Piperacillin Sod/ Tazobactam Sod 2.25 gm/Sodium Chloride 50 ml @ 100 mls/hr Q6HRS IV Last administered on 02/16/17 05:52; Start 02/15/17 at 12:00; Stop 03/25 at 09:17; Status DC Daptomycin 340 mg/ Sodium Chloride 50 ml @ 100 mls/hr ONCE ONCE IV Last administered on 02/15/17 11:15; Start 02/15/17 at 11:15; Stop 02/15/17 at 11:44; Status DC Dextrose/Sodium Chloride 1,000 ml @ 40 mls/hr Q24H IV Last administered on 21:31; Start 02/15/17 at 15:15 Lidocaine/Sodium Bicarbonate (Buffered Lidocaine 1%) 3 ml 1X ONCE IJ Last administered on 02/15/17 16:00; Start 02/15/17 at 15:45; Stop 02/15/17 at 15:46; Status DC Heparin Sodium/ Sodium Chloride 6,000 unit 1X ONCE IV ; Start 02/15/17 at 15:45 ; Stop 02/15/17 at 15:46; Status DC Sodium Chloride 1,000 ml @ 1,000 mls/hr Q1H PRN IV hypotension; Start 02/16/17 at 06:38; Stop 02/16/17 at 12:37; Status DC Info (PHARMACY MONITORING -- do not chart) 1 each PRN DAILY PRN MC SEE COMMENTS ; Start 02/16/17 at 06:45; Stop 02/22/17 at 07:49; Status DC Info (PHARMACY MONITORING -- do not chart) 1 each PRN DAILY PRN MC SEE COMMENTS ; Start 02/16/17 at 06:45; Stop 02/16/17 at 09:19; Status DC Info (PHARMACY MONITORING -- do not chart) 1 each PRN DAILY PRN MC SEE COMMENTS ; Start 02/16/17 at 06:45; Stop 02/16/17 at 09:19; Status DC Albumin Human 100 ml @ 100 mls/hr 1X ONCE IV Last administered on 02/16/17 07:18; Start 02/16/17 at 07:00; Stop 02/16/17 at 07:59; Status DC Piperacillin Sod/ Tazobactam Sod 2.25 gm/Sodium Chloride 50 ml @ 100 mls/hr Q8HRS IV Last administered on 02/18/17 05:55; Start 02/16/17 at 14:00; Stop at 07:22; Status DC Daptomycin 340 mg/ Sodium Chloride 50 ml @ 100 mls/hr QODAY IV Last administered on 02/17/17 12:22; Start 02/17/17 at 09:00; Stop 02/18/17 at 07:22 ; Status DC Sodium Chloride 1,000 ml @ 1,000 mls/hr Q1H PRN IV hypotension; Start 02/17/17 at 08:30; Stop 02/17/17 at 16:00; Status DC Albumin Human 200 ml @ 200 mls/hr 1X PRN PRN IV Hypotension; Start 02/17/17 at 08:30; Stop 02/17/17 at 16:00; Status DC Sodium Chloride 1,000 ml @ 400 mls/hr Q2H30M PRN IV PATENCY; Start 02/17/17 at 08:30; Stop 02/17/17 at 16:00; Status DC Info (PHARMACY MONITORING -- do not chart) 1 each PRN DAILY PRN MC SEE COMMENTS ; Start 02/17/17 at 08:30; Status UNV Info (PHARMACY MONITORING -- do not chart) 1 each PRN DAILY PRN MC SEE COMMENTS ; Start 02/17/17 at 08:30; Status UNV Heparin Sodium (Porcine) (Heparin Sq) 5,000 unit Q8HRS SQ Last administered on 02/22/17 05:49; Start 02/17/17 at 14:00 Bisacodyl (Dulcolax Supp) 10 mg PRN DAILY PRN [place] CONSTIPATION; Start 02/17/17 at 15:00 Polyethylene Glycol (miraLAX PACKET) 17 gm PRN DAILY PRN FT CONSTIPATION; Start 02/17/17 at 15:00 Levetiracetam 500 mg/Sodium Chloride 100 ml @ 400 mls/hr Q12HR IV Last administered on 02/22/17 09:27; Start 02/17/17 at 21:00 Vancomycin HCl (Vanco Per Pharmacy) 1 each PRN DAILY PRN MC SEE COMMENTS Last administered on 02/22/17 08:35; Start 02/18/17 at 07:30 Vancomycin HCl 1.5 gm/Sodium Chloride 500 ml @ 250 mls/hr 1X ONCE IV Last administered on 02/18/17 14:43; Start 02/18/17 at 14:30; Stop 02/18/17 at 16:29 ; Status DC Vancomycin HCl 1 each 1X ONCE MC Last administered on 02/20/17 05:00; Start 02/20/17 at 05:00; Stop 02/20/17 at 05:01; Status DC Sodium Chloride 1,000 ml @ 1,000 mls/hr Q1H PRN IV hypotension; Start 02/19/17 at 09:08; Stop 02/19/17 at 15:07; Status DC Albumin Human 200 ml @ 200 mls/hr 1X PRN PRN IV Hypotension; Start 02/19/17 at 09:15; Stop 02/19/17 at 15:14; Status DC Sodium Chloride 1,000 ml @ 400 mls/hr Q2H30M PRN IV PATENCY; Start 02/19/17 at 09:08; Stop 02/19/17 at 21:07; Status DC Info (PHARMACY MONITORING -- do not chart) 1 each PRN DAILY PRN MC SEE COMMENTS ; Start 02/19/17 at 09:15; Stop 02/19/17 at 09:17; Status DC Info (PHARMACY MONITORING -- do not chart) 1 each PRN DAILY PRN MC SEE COMMENTS ; Start 02/19/17 at 09:15; Stop 02/20/17 at 12:35; Status DC Vancomycin HCl 500 mg/Sodium Chloride 100 ml @ 100 mls/hr QMWF IV Last administered on 02/21/17 16:17; Start 02/21/17 at 16:00 Sodium Chloride 1,000 ml @ 1,000 mls/hr Q1H PRN IV hypotension; Start 02/21/17 at 08:14; Stop 02/21/17 at 14:13; Status DC Diphenhydramine HCl (Benadryl) 25 mg 1X PRN PRN IV ITCHING; Start 02/21/17 at 08:15; Stop 02/22/17 at 08:14; Status DC Diphenhydramine HCl (Benadryl) 25 mg 1X PRN PRN IV ITCHING; Start 02/21/17 at 08:15; Stop 02/22/17 at 08:14; Status DC Sodium Chloride (Normal Saline Flush) 10 ml 1X PRN PRN IV AP catheter pack; Start 02/21/17 at 08:15; Stop 02/22/17 at 08:14; Status DC Sodium Chloride (Normal Saline Flush) 10 ml 1X PRN PRN IV HOOKMAN catheter pack; Start 02/21/17 at 08:15; Stop 02/22/17 at 08:14; Status DC Sodium Chloride 1,000 ml @ 400 mls/hr Q2H30M PRN IV PATENCY; Start 02/21/17 at 08:14; Stop 02/21/17 at 20:13; Status DC Info (PHARMACY MONITORING -- do not chart) 1 each PRN DAILY PRN MC SEE COMMENTS ; Start 02/21/17 at 08:15 Active Scripts Active Reported Latuda (Lurasidone Hcl) 20 Mg Tablet 20 Mg PO AFTRNOON Remeron (Mirtazapine) 15 Mg Tablet 1 Tab PO QHS Oxybutynin Chloride Er (Oxybutynin Chloride) 10 Mg Tab.er.24 1 Tab PO DAILY Multivitamins (Multivitamin) 1 Each Tablet 1 Tab PO DAILY Latuda (Lurasidone Hcl) 20 Mg Tablet 10 Mg PO AFTRNOON Lorazepam 0.5 Mg Tablet 1 Tab PO QEVNG Duoneb 0.5-3(2.5) Mg/3 Ml (Albuterol/Ipratropium) 3 Ml Ampul.neb 3 Ml NEB BID Duoneb 0.5-3(2.5) Mg/3 Ml (Albuterol/Ipratropium) 3 Ml Ampul.neb 3 Ml NEB Q4H PRN Calcium Carbonate 500 Mg Tablet 1,000 Mg PO Q4HRS PRN Nicotine Gum (Nicotine Polacrilex) 4 Mg Gum 4 Mg BC Milk Of Magnesia (Magnesium Hydroxide) 400 Mg/5 Ml Oral.susp 400 Mg PO Q3DAYS PRN Milk Of Magnesia (Magnesium Hydroxide) 400 Mg/5 Ml Oral.susp 400 Mg PO Q3DAYS PRN Lorazepam 1 Mg Tablet 1 Tab PO Q12HR PRN Ibuprofen 400 Mg Tablet 200 Mg PO Q8HRS PRN Cough Drops (Eucalyptus Oil/Menthol) 7 Mg Lozenge 7 Mg MM Q4HRS PRN Tylenol (Acetaminophen) 325 Mg Tablet 650 Mg PO Q4HRS PRN Lovaza ([place]-3 Acid Ethyl Esters) 1 Gm Capsule 1 Cap PO QID Gabapentin 400 Mg Capsule 400 Mg PO QID Lorazepam 1 Mg Tablet 1 Tab PO BID Latuda (Lurasidone Hcl) 60 Mg Tablet 60 Mg PO BID Advair 100-50 Diskus (Fluticasone/Salmeterol) 1 Each Disk.w.dev 1 Puff IH BID Acetaminophen 325 Mg Capsule 650 Mg PO BID Vitamin D (Cholecalciferol (Vitamin D3)) 2,000 Unit Capsule 800 Unit PO DAILY Vitals/I & O Vital Sign - Last 24 Hours 02/21/17 02/21/17 02/21/17 02/21/17 13:00 13:25 14:00 14:39 Pulse 94 98 Resp B/P (MAP) 101/63 (76) 120/72 (88) Pulse Ox 100 100 100 100 O2 Delivery Ventilator Ventilator Ventilator Ventilator 02/21/17 02/21/17 02/21/17 02/21/17 15:00 16:00 16:00 16:31 Temp 98.2 98.2 Pulse 95 94 Resp B/P (MAP) 102/63 (76) 104/63 (77) Pulse Ox 100 100 100 O2 Delivery Ventilator Ventilator Mechanical Ventilator Ventilator 02/21/17 02/21/17 02/21/17 02/21/17 17:00 17:41 18:05 19:00 Pulse 92 104 94 Resp B/P (MAP) 114/64 (81) 135/71 (92) 118/69 (85) Pulse Ox 100 100 100 100 O2 Delivery Ventilator Ventilator Ventilator Ventilator 02/21/17 02/21/17 02/21/17 02/21/17 20:00 20:00 20:07 21:00 Temp 99.1 99.1 Pulse 92 92 Resp B/P (MAP) 111/66 (81) 133/67 (89) Pulse Ox 100 100 100 O2 Delivery Mechanical Ventilator Ventilator Ventilator Ventilator 02/21/17 02/21/17 02/21/17 02/22/17 22:00 22:48 23:00 00:00 Pulse 86 94 Resp 26 26 B/P (MAP) 113/62 (79) 137/75 (95) Pulse Ox 100 100 100 O2 Delivery Ventilator Ventilator Ventilator Mechanical Ventilator 02/22/17 02/22/17 02/22/17 02/22/17 00:00 01:00 01:43 02:00 Temp 98.9 98.9 Pulse 100 100 102 Resp B/P (MAP) 138/75 (96) 160/84 (109) Pulse Ox 99 99 99 99 O2 Delivery Ventilator Ventilator Ventilator Ventilator 02/22/17 02/22/17 02/22/17 02/22/17 02:52 03:00 03:32 04:00 Pulse 102 100 Resp B/P (MAP) 140/80 (100) 149/78 (101) Pulse Ox 99 100 O2 Delivery Ventilator Ventilator Mechanical Ventilator 02/22/17 02/22/17 02/22/17 02/22/17 04:22 05:02 05:42 06:08 Temp 98.2 98.2 Pulse 100 103 109 Resp B/P (MAP) 143/71 (95) 140/68 (92) 125/75 (92) Pulse Ox 99 100 100 99 O2 Delivery Ventilator Ventilator Ventilator Ventilator 02/22/17 02/22/17 02/22/17 02/22/17 07:00 07:18 07:55 08:00 Temp 99.4 99.4 Pulse 109 112 Resp 31 31 B/P (MAP) 125/81 (96) 143/80 (101) Pulse Ox 100 100 99 O2 Delivery Ventilator Ventilator Mechanical Ventilator Ventilator 02/22/17 02/22/17 02/22/17 02/22/17 09:00 09:09 10:03 11:26 Temp 98.5 98.5 Pulse 128 123 124 Resp 32 32 34 B/P (MAP) 151/79 (103) 155/88 (110) 159/76 Pulse Ox 98 99 98 O2 Delivery Ventilator Ventilator Ventilator 02/22/17 02/22/17 11:28 11:44 Temp 98.5 98.5 Pulse 115 Resp 28 B/P (MAP) 127/62 Pulse Ox 99 O2 Delivery Ventilator Intake and Output 02/22/17 02/22/17 02/23/17 15:00 23:00 07:00 Intake Total 0 ml Output Total 30 ml Balance -30 ml HOANG ARAGON III DO Feb 22, 2017 12:24
[2017-02-22] MEDS: IV DEXTROSE 5 %-0.2 % NACL 1,000 ML IV SCH (23:30)
[2017-02-23] VITALS (24 sets, daily range): BP systolic 135–173; BP diastolic 72–95
[2017-02-23 06:04] LABS: CALCIUM 7.8 mg/dL (8.5-10.1); CREATININE 4.8 mg/dL (0.6-1.0); GFR 11.4; POTASSIUM 4.8 mmol/L (3.5-5.1)
[2017-02-23 06:33] LABS: BASO # 0.1 x10^3/uL (0.0-0.2); BASO % 0 % (0-3); EOS % 0 % (0-3); HEMATOCRIT 21.6 % (36.0-47.0); HEMOGLOBIN 7.3 g/dL (12.0-15.5); LYMPH # 1.9 x10^3/uL (1.0-4.8); LYMPH % 4 % (24-48); MEAN CORPUSCULAR HEMOGLOBIN 31 pg (25-35); MEAN CORPUSCULAR HGB CONC 34 g/dL (31-37); MEAN CORPUSCULAR VOLUME 90 fL (79-100); MONO % 5 % (0-9); NEUT % 91 % (31-73); PLATELET COUNT 197 x10^3/uL (140-400); RED BLOOD COUNT 2.39 x10^6/uL (3.50-5.40); RED CELL DISTRIBUTION WIDTH 15.4 % (11.5-14.5)
[2017-02-23 06:43] LABS: WHITE BLOOD COUNT 55.2 x10^3/uL (4.0-11.0)
[2017-02-23] MEDS: ASPIRIN 300 MG SUPP.RECT PR SCH (07:27)
[2017-02-23] MEDS: methylPREDNISolone SOD SUCC PF 125 MG/2 ML VIAL. IV SCH ×3 (07:27→21:01)
[2017-02-23] MEDS: FAMOTIDINE 20 MG/2 ML VIAL IVP SCH (07:27)
[2017-02-23] MEDS: MINERAL OIL/PETROLATUM,WHITE OPHTH OINT 3.5GM TUBE. OU PRN (07:34)
--- NOTE | 2017-02-23 08:27 | PDOC ---
PULMONARY PROGRESS NOTES Subjective on vent, tachypneac, has 2 u prbc, not following commands Vitals Vital Signs Date Time Temp Pulse Resp B/P (MAP) Pulse Ox O2 Delivery O2 Flow Rate FiO2 02/23/17 08:00 100 28 173/76 (108) 99 Ventilator 02/23/17 07:00 98.3 98.3 Comments doris, discussed w rn, as mentioned as above other sys otherwise neg HEENT: Other (nc at perrl, nose clear, orally intubated. neck no lap thyromegaly) Lungs: Crackles Cardiovascular: S1, S2 Abdomen: Soft, Non-tender, Other (no mass) Extremities: No Edema Skin: Warm, Dry Labs Laboratory Tests Test 02/21/17 16:15 02/22/17 05:45 02/22/17 07:05 02/22/17 07:45 Glucose (Fingerstick) 140 mg/dL (70-99) Sodium Level 135 mmol/L (136-145) Potassium Level 4.4 mmol/L (3.5-5.1) Chloride Level 97 mmol/L (98-107) Carbon Dioxide Level 27 mmol/L (21-32) Anion Gap 11 (6-14) Blood Urea Nitrogen 91 mg/dL (7-20) Creatinine 3.9 mg/dL (0.6-1.0) Estimated GFR (Cockcroft-Gault) 14.5 BUN/Creatinine Ratio 23 (6-20) Glucose Level 159 mg/dL (70-99) Calcium Level 7.5 mg/dL (8.5-10.1) Total Bilirubin 1.1 mg/dL (0.2-1.0) Aspartate Amino Transf (AST/SGOT) 92 U/L (15-37) Alanine Aminotransferase (ALT/SGPT) 221 U/L (14-59) Alkaline Phosphatase 104 U/L (46-116) Total Protein 4.6 g/dL (6.4-8.2) Albumin 1.9 g/dL (3.4-5.0) Albumin/Globulin Ratio 0.7 (1.0-1.7) White Blood Count 51.2 x10^3/uL (4.0-11.0) Red Blood Count 1.39 x10^6/uL (3.50-5.40) Hemoglobin 4.4 g/dL (12.0-15.5) Hematocrit 13.2 % (36.0-47.0) Mean Corpuscular Volume 94 fL (79-100) Mean Corpuscular Hemoglobin 32 pg (25-35) Mean Corpuscular Hemoglobin Concent 34 g/dL (31-37) Red Cell Distribution Width 14.5 % (11.5-14.5) Platelet Count 177 x10^3/uL (140-400) Neutrophils (%) (Auto) 92 % (31-73) Lymphocytes (%) (Auto) 3 % (24-48) Monocytes (%) (Auto) 5 % (0-9) Eosinophils (%) (Auto) 0 % (0-3) Basophils (%) (Auto) 0 % (0-3) Neutrophils # (Auto) 47.3 x10^3uL (1.8-7.7) Lymphocytes # (Auto) 1.3 x10^3/uL (1.0-4.8) Monocytes # (Auto) 2.5 x10^3/uL (0.0-1.1) Eosinophils # (Auto) 0.0 x10^3/uL (0.0-0.7) Basophils # (Auto) 0.0 x10^3/uL (0.0-0.2) Segmented Neutrophils % 84 % (35-66) Band Neutrophils % 5 % (0-9) Lymphocytes % 3 % (24-48) Monocytes % 1 % (0-10) Metamyelocytes % 7 % (0-0) Toxic Granulation Slight Platelet Estimate Adequate (ADEQUATE) O2 Saturation 98 % (92-99) Arterial Blood pH 7.50 (7.35-7.45) Arterial Blood pCO2 at Patient Temp 28 mmHg (35-46) Arterial Blood pO2 at Patient Temp 158 mmHg (75-108) Arterial Blood HCO3 22 mmol/L (21-28) Arterial Blood Base Excess -2 mmol/L (-3-3) FiO2 35 Test 02/22/17 08:30 02/22/17 16:37 02/22/17 16:40 02/23/17 05:40 Hemoglobin 4.4 g/dL (12.0-15.5) 7.3 g/dL (12.0-15.5) Sodium Level 133 mmol/L (136-145) 134 mmol/L (136-145) Potassium Level 4.2 mmol/L (3.5-5.1) 4.8 mmol/L (3.5-5.1) Chloride Level 97 mmol/L (98-107) 97 mmol/L (98-107) Carbon Dioxide Level 25 mmol/L (21-32) 23 mmol/L (21-32) Anion Gap 11 (6-14) 14 (6-14) Blood Urea Nitrogen 99 mg/dL (7-20) 125 mg/dL (7-20) Creatinine 3.9 mg/dL (0.6-1.0) 4.8 mg/dL (0.6-1.0) Estimated GFR (Cockcroft-Gault) 14.5 11.4 Glucose Level 164 mg/dL (70-99) 177 mg/dL (70-99) Calcium Level 7.9 mg/dL (8.5-10.1) 7.8 mg/dL (8.5-10.1) Lactate Dehydrogenase 808 U/L (81-234) Glucose (Fingerstick) 160 mg/dL (70-99) Fibrinogen 273 mg/dL (200-440) White Blood Count 55.2 x10^3/uL (4.0-11.0) Red Blood Count 2.39 x10^6/uL (3.50-5.40) Hematocrit 21.6 % (36.0-47.0) Mean Corpuscular Volume 90 fL (79-100) Mean Corpuscular Hemoglobin 31 pg (25-35) Mean Corpuscular Hemoglobin Concent 34 g/dL (31-37) Red Cell Distribution Width 15.4 % (11.5-14.5) Platelet Count 197 x10^3/uL (140-400) Neutrophils (%) (Auto) 91 % (31-73) Lymphocytes (%) (Auto) 4 % (24-48) Monocytes (%) (Auto) 5 % (0-9) Eosinophils (%) (Auto) 0 % (0-3) Basophils (%) (Auto) 0 % (0-3) Neutrophils # (Auto) 50.2 x10^3uL (1.8-7.7) Lymphocytes # (Auto) 1.9 x10^3/uL (1.0-4.8) Monocytes # (Auto) 2.9 x10^3/uL (0.0-1.1) Eosinophils # (Auto) 0.0 x10^3/uL (0.0-0.7) Basophils # (Auto) 0.1 x10^3/uL (0.0-0.2) Laboratory Tests Test 02/22/17 08:30 02/22/17 16:37 02/22/17 16:40 02/23/17 05:40 Hemoglobin 4.4 g/dL (12.0-15.5) 7.3 g/dL (12.0-15.5) Sodium Level 133 mmol/L (136-145) 134 mmol/L (136-145) Potassium Level 4.2 mmol/L (3.5-5.1) 4.8 mmol/L (3.5-5.1) Chloride Level 97 mmol/L (98-107) 97 mmol/L (98-107) Carbon Dioxide Level 25 mmol/L (21-32) 23 mmol/L (21-32) Anion Gap 11 (6-14) 14 (6-14) Blood Urea Nitrogen 99 mg/dL (7-20) 125 mg/dL (7-20) Creatinine 3.9 mg/dL (0.6-1.0) 4.8 mg/dL (0.6-1.0) Estimated GFR (Cockcroft-Gault) 14.5 11.4 Glucose Level 164 mg/dL (70-99) 177 mg/dL (70-99) Calcium Level 7.9 mg/dL (8.5-10.1) 7.8 mg/dL (8.5-10.1) Lactate Dehydrogenase 808 U/L (81-234) Glucose (Fingerstick) 160 mg/dL (70-99) Fibrinogen 273 mg/dL (200-440) White Blood Count 55.2 x10^3/uL (4.0-11.0) Red Blood Count 2.39 x10^6/uL (3.50-5.40) Hematocrit 21.6 % (36.0-47.0) Mean Corpuscular Volume 90 fL (79-100) Mean Corpuscular Hemoglobin 31 pg (25-35) Mean Corpuscular Hemoglobin Concent 34 g/dL (31-37) Red Cell Distribution Width 15.4 % (11.5-14.5) Platelet Count 197 x10^3/uL (140-400) Neutrophils (%) (Auto) 91 % (31-73) Lymphocytes (%) (Auto) 4 % (24-48) Monocytes (%) (Auto) 5 % (0-9) Eosinophils (%) (Auto) 0 % (0-3) Basophils (%) (Auto) 0 % (0-3) Neutrophils # (Auto) 50.2 x10^3uL (1.8-7.7) Lymphocytes # (Auto) 1.9 x10^3/uL (1.0-4.8) Monocytes # (Auto) 2.9 x10^3/uL (0.0-1.1) Eosinophils # (Auto) 0.0 x10^3/uL (0.0-0.7) Basophils # (Auto) 0.1 x10^3/uL (0.0-0.2) Medications Active Scripts Medications Dose Route/Sig Max Daily Dose Days Date Category Latuda (Lurasidone Hcl) 20 Mg Tablet 20 Mg PO AFTRNOON 02/12/17 Reported Remeron (Mirtazapine) 15 Mg Tablet 1 Tab PO QHS 02/12/17 Reported Oxybutynin Chloride Er (Oxybutynin Chloride) 10 Mg Tab.er.24 1 Tab PO DAILY 02/12/17 Reported Multivitamins (Multivitamin) 1 Each Tablet 1 Tab PO DAILY 02/12/17 Reported Latuda (Lurasidone Hcl) 20 Mg Tablet 10 Mg PO AFTRNOON 02/12/17 Reported Lorazepam 0.5 Mg Tablet 1 Tab PO QEVNG 02/12/17 Reported Duoneb 0.5-3(2.5) Mg/3 Ml (Albuterol/Ipratropium) 3 Ml Ampul.neb 3 Ml NEB BID 02/12/17 Reported Duoneb 0.5-3(2.5) Mg/3 Ml (Albuterol/Ipratropium) 3 Ml Ampul.neb 3 Ml NEB Q4H PRN 02/12/17 Reported Calcium Carbonate 500 Mg Tablet 1,000 Mg PO Q4HRS PRN 02/12/17 Reported Nicotine Gum (Nicotine Polacrilex) 4 Mg Gum 4 Mg BC 02/12/17 Reported Milk Of Magnesia (Magnesium Hydroxide) 400 Mg/5 Ml Oral.susp 400 Mg PO Q3DAYS PRN 02/12/17 Reported Milk Of Magnesia (Magnesium Hydroxide) 400 Mg/5 Ml Oral.susp 400 Mg PO Q3DAYS PRN 02/12/17 Reported Lorazepam 1 Mg Tablet 1 Tab PO Q12HR PRN 02/12/17 Reported Ibuprofen 400 Mg Tablet 200 Mg PO Q8HRS PRN 02/12/17 Reported Cough Drops (Eucalyptus Oil/Menthol) 7 Mg Lozenge 7 Mg MM Q4HRS PRN 02/12/17 Reported Tylenol (Acetaminophen) 325 Mg Tablet 650 Mg PO Q4HRS PRN 02/12/17 Reported Lovaza (Dyer-3 Acid Ethyl Esters) 1 Gm Capsule 1 Cap PO QID 02/12/17 Reported Gabapentin 400 Mg Capsule 400 Mg PO QID 02/12/17 Reported Lorazepam 1 Mg Tablet 1 Tab PO BID 02/12/17 Reported Latuda (Lurasidone Hcl) 60 Mg Tablet 60 Mg PO BID 02/12/17 Reported Advair 100-50 Diskus (Fluticasone/Salmeterol) 1 Each Disk.w.dev 1 Puff IH BID 02/12/17 Reported Acetaminophen 325 Mg Capsule 650 Mg PO BID 02/12/17 Reported Vitamin D (Cholecalciferol (Vitamin D3)) 2,000 Unit Capsule 800 Unit PO DAILY 02/12/17 Reported Comments cxr reviewed BATOOL INFILTRATES Impression . 1. Acute respiratory failure, sec to out of hospital arrest 2. Acute toxic/metabolic encephalopathy 3. Status post cardiopulmonary arrest. She had asystole. anoxic brain injury 4. Abnormal echocardiogram with ejection fraction of 35%. 5. Hyponatremia, improving 6. Abnormal LFTs secondary to hypoperfusion. 7. Acute renal failure. 8. Shock, combination of cardiogenic,septic/ OFF PRESSOR 9. mrsa bactremia Plan . cont vent support, vent setting reviewed, still tachypneac NO SEDATION, small dose off fentanyl for comfort CONTINUE SUPPORT FOR NOW CXR REVIEWD CT HEAD NOTHING NEW NUTRTION PER OG PROGNOSIS IS POOR LETTER WRITTEN TO COURT ANTIBX PER ID FOLLOW NEURO INPUT prognosis poor discussed w TULIO Ash MD Feb 23, 2017 08:27
--- NOTE | 2017-02-23 10:16 | PDOC ---
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 SKIN: No rash IV: ok Labs Lab Laboratory Tests Test 02/22/17 16:37 02/22/17 16:40 02/23/17 05:40 Glucose (Fingerstick) 160 mg/dL (70-99) Fibrinogen 273 mg/dL (200-440) White Blood Count 55.2 x10^3/uL (4.0-11.0) Red Blood Count 2.39 x10^6/uL (3.50-5.40) Hemoglobin 7.3 g/dL (12.0-15.5) Hematocrit 21.6 % (36.0-47.0) Mean Corpuscular Volume 90 fL (79-100) Mean Corpuscular Hemoglobin 31 pg (25-35) Mean Corpuscular Hemoglobin Concent 34 g/dL (31-37) Red Cell Distribution Width 15.4 % (11.5-14.5) Platelet Count 197 x10^3/uL (140-400) Neutrophils (%) (Auto) 91 % (31-73) Lymphocytes (%) (Auto) 4 % (24-48) Monocytes (%) (Auto) 5 % (0-9) Eosinophils (%) (Auto) 0 % (0-3) Basophils (%) (Auto) 0 % (0-3) Neutrophils # (Auto) 50.2 x10^3uL (1.8-7.7) Lymphocytes # (Auto) 1.9 x10^3/uL (1.0-4.8) Monocytes # (Auto) 2.9 x10^3/uL (0.0-1.1) Eosinophils # (Auto) 0.0 x10^3/uL (0.0-0.7) Basophils # (Auto) 0.1 x10^3/uL (0.0-0.2) Sodium Level 134 mmol/L (136-145) Potassium Level 4.8 mmol/L (3.5-5.1) Chloride Level 97 mmol/L (98-107) Carbon Dioxide Level 23 mmol/L (21-32) Anion Gap 14 (6-14) Blood Urea Nitrogen 125 mg/dL (7-20) Creatinine 4.8 mg/dL (0.6-1.0) Estimated GFR (Cockcroft-Gault) 11.4 Glucose Level 177 mg/dL (70-99) Calcium Level 7.8 mg/dL (8.5-10.1) Objective Assessment Fever - better - procalcitonin mild elevation MRSA sepsis/bacteremia, POA. 02/12. -TTE no evidence veg; Repeat BC from 02/15 negative Anemia Encephalopathy S/P Cardiac arrest Respiratory failure COPD Leukocytosis, on steroids, trending up DARYA. Now on HD Schizophrenia MRSA nares positive Plan Plan of Care Cont Vanc Blood transfusion underway Await court decision Needs DNR/DNI Needs palliative extubation as overall prognosis is poor Critically ill MILAGROS GREER MD Feb 23, 2017 10:16
[2017-02-23] MEDS: VANCOMYCIN PER PHARMACY MC PRN (11:11)
--- NOTE | 2017-02-23 11:17 | RAD ---
Chest radiograph 02/23/2017 11:00 AM Indication: Congestive heart failure Comparison: Chest radiograph 02/22/2017 Technique: Single portable semiupright frontal view of the chest is provided. Findings: Endotracheal tube terminates 5 cm above the level of the ernst. A left IJ catheter terminates at the cavoatrial junction. A right IJ central venous catheter terminates at the distal superior vena cava. Nasogastric tube is identified coursing below the level of the diaphragm with the distal tip not visualized on this radiograph. Cardiomediastinal silhouette is within normal limits. No pleural effusions, pulmonary vascular congestion or pneumothorax. The lungs are clear. Osseous structures are normal. Impression: Improved aeration of the right lung base. Stable support lines and tubes.
--- NOTE | 2017-02-23 12:19 | PDOC ---
SUBJECTIVE ROS DARYA/ ATN remains min responsive on Vent OBJECTIVE Vital Signs Vital Signs Date Time Temp Pulse Resp B/P (MAP) Pulse Ox O2 Delivery O2 Flow Rate FiO2 02/23/17 11:36 99 Ventilator 02/23/17 11:00 103 28 163/85 (111) 02/23/17 07:00 98.3 98.3 I & 0 Intake and Output 02/24/17 07:00 Intake Total 100 ml Output Total 83 ml Balance 17 ml IV Total 100 ml Tube Feeding 0 ml Output Urine Total 83 ml # Bowel Movements 1 PHYSICAL EXAM Physical Exam GEN: Not sedated but min responsive on the Vent EYES: Sclera Anciteric, Conjunctiva Normal EN: No EN Drainage, Mucous Membranes moist NECK: + JVD, + JVP, Supple, no palp Thyromegaly CVS: S1S2, ? Murmur, No Gallop, No Rub,+ Edema upper ext RESP: no Rales, no Rhonchi,+ Acc. Muscle Use GI: BS hypo ve, NO Bruit, Non Tender, Non Distended : no CVA tenderness, no Suprapubic Tenderness DIAGNOSIS/ASSESSMENT Assessment & Plan ARF/ ATN : Current fluid and E-lyte status does not necessitate emergent need for dialysis. Will re-evaluate for dialysis in the am and continue on MWF schedule. ANEMIA; Aranap as ordered, Transfuse as needed (onoing) HTN: Current BP reviewed. no pressors yet Oligo-anuria due to ATN - May need HD later this am Poor PRognosis - await decision for withdrawal of care COMMENT/RELEVANT DATA Meds Current Medications Medications (Trade) Dose Ordered Sig/Bryce Start Time Stop Time Status Last Admin Dose Admin Acetaminophen (Acetaminophen Supp) 650 mg PRN Q6HRS PRN 02/13/17 17:00 Acetaminophen (Tylenol) 650 mg PRN Q6HRS PRN 02/13/17 17:00 Albumin Human 200 ml @ 200 mls/hr 1X PRN PRN 02/19/17 09:15 02/19/17 15:14 DC Amino Acids/ Glycerin/ Electrolytes 1,000 ml @ 80 mls/hr [id number] 02/15/17 08:45 02/15/17 15:14 DC 02/15/17 09:32 80 MLS/HR Aspirin (Aspirin) 300 mg DAILY 02/13/17 09:00 02/23/17 07:27 300 MG Bisacodyl (Dulcolax Supp) 10 mg PRN DAILY PRN 02/17/17 15:00 Calcium Chloride 1,000 mg STK-MED ONCE 02/12/17 10:00 02/13/17 16:27 DC Daptomycin 340 mg/ Sodium Chloride 50 ml @ 100 mls/hr QODAY 02/17/17 09:00 02/18/17 07:22 DC 02/17/17 12:22 100 MLS/HR Dextrose (Dextrose 50%-Water Syringe) 25 gm STK-MED ONCE 02/12/17 10:00 02/13/17 16:27 DC Dextrose/Sodium Chloride 1,000 ml @ 40 mls/hr Q24H 02/15/17 15:15 02/22/17 23:30 40 MLS/HR Diphenhydramine HCl (Benadryl) 25 mg 1X PRN PRN 02/21/17 08:15 02/22/17 08:14 DC Epinephrine HCl (EPINEPHrine SYRINGE) 1 mg STK-MED ONCE 02/12/17 10:00 02/13/17 16:27 DC Famotidine (Pepcid) 20 mg DAILY 02/15/17 09:00 02/23/17 07:27 20 MG Fentanyl Citrate 30 ml @ 2.5 mls/hr CONT PRN PRN 02/12/17 17:00 02/20/17 10:36 DC 02/14/17 03:27 2.5 MLS/HR Fentanyl Citrate (Fentanyl 2ml Vial) 25 mcg PRN Q30MIN PRN 02/12/17 17:00 Furosemide (Lasix) 40 mg 1X ONCE 02/15/17 08:45 02/15/17 09:18 DC Heparin Sodium (Porcine) (Heparin Sodium) 800 unit PRN Q6HRS PRN 02/13/17 11:45 02/14/17 13:53 DC 02/14/17 02:34 800 UNIT Heparin Sodium (Porcine) (Heparin Sq) 5,000 unit Q8HRS 02/17/17 14:00 02/22/17 14:24 DC 02/22/17 05:49 5,000 UNIT Heparin Sodium/ Dextrose 500 ml @ 16.5 mls/hr CONT PRN 02/13/17 11:45 02/14/17 13:53 DC 02/13/17 12:47 16.5 MLS/HR Heparin Sodium/ Sodium Chloride 6,000 unit 1X ONCE 02/15/17 15:45 02/15/17 15:46 DC Info (Anti-Coagulation Monitoring By Pharmacy) 1 each PRN DAILY PRN 02/13/17 13:00 02/14/17 16:28 DC Info (PHARMACY MONITORING -- do not chart) 1 each PRN DAILY PRN 02/21/17 08:15 Levetiracetam 500 mg/Sodium Chloride 100 ml @ 400 mls/hr Q12HR 02/17/17 21:00 02/23/17 08:24 400 MLS/HR Lidocaine/Sodium Bicarbonate (Buffered Lidocaine 1%) 3 ml 1X ONCE 02/15/17 15:45 02/15/17 15:46 DC 02/15/17 16:00 3 ML Lorazepam (Ativan) 1 mg PRN Q30MIN PRN 02/12/17 17:00 Magnesium Sulfate/ Dextrose 50 ml @ 25 mls/hr PRN DAILY PRN 02/13/17 10:45 Meperidine HCl (Demerol) 12.5 mg PRN Q30MIN PRN 02/12/17 17:00 Methylprednisolone Sodium Succinate (SOLU-Medrol 40MG VIAL) 100 mg TID 02/12/17 18:00 02/14/17 12:00 DC 02/14/17 11:01 100 MG Methylprednisolone Sodium Succinate (SOLU-Medrol 125MG VIAL) 100 mg TID 02/14/17 18:00 02/23/17 07:27 100 MG Multi-Ingred Cream/Lotion/Oil/ Oint (Artificial Tears Eye Oint) 1 silvestre PRN Q6HRS PRN 02/12/17 17:00 02/23/17 07:34 1 SILVESTRE Norepinephrine Bitartrate 250 ml @ 0 mls/hr CONT PRN 02/14/17 15:30 Cancel Piperacillin Sod/ Tazobactam Sod (Zosyn Per Pharmacy) 1 each PRN DAILY PRN 02/12/17 19:15 02/18/17 07:22 DC Piperacillin Sod/ Tazobactam Sod 2.25 gm/Sodium Chloride 50 ml @ 100 mls/hr Q8HRS 02/16/17 14:00 02/18/17 07:22 DC 02/18/17 05:55 100 MLS/HR Piperacillin Sod/ Tazobactam Sod 3.375 gm/Sodium Chloride 50 ml @ 100 mls/hr Q6HRS 02/12/17 19:30 02/15/17 09:37 DC 02/15/17 05:58 100 MLS/HR Polyethylene Glycol (miraLAX PACKET) 17 gm PRN DAILY PRN 02/17/17 15:00 Propofol 100 ml @ 0 mls/hr CONT PRN 02/12/17 17:00 02/20/17 10:36 DC Sodium Bicarbonate 50 meq STK-MED ONCE 02/12/17 10:00 02/13/17 16:27 DC Sodium Chloride 1,000 ml @ 400 mls/hr Q2H30M PRN 02/21/17 08:14 02/21/17 20:13 DC Sodium Chloride (Normal Saline Flush) 10 ml 1X PRN PRN 02/21/17 08:15 02/22/17 08:14 DC Vancomycin HCl (Vanco Per Pharmacy) 1 each PRN DAILY PRN 02/18/17 07:30 02/23/17 11:11 1 EACH Vancomycin HCl 1.5 gm/Sodium Chloride 500 ml @ 250 mls/hr 1X ONCE 02/18/17 14:30 02/18/17 16:29 DC 02/18/17 14:43 250 MLS/HR Vancomycin HCl 500 mg/Sodium Chloride 100 ml @ 100 mls/hr QMWF 02/21/17 16:00 02/21/17 16:17 100 MLS/HR Vancomycin HCl 750 mg/Sodium Chloride 250 ml @ 250 mls/hr Q24H 02/13/17 20:00 02/14/17 07:57 DC 02/13/17 20:34 250 MLS/HR Vancomycin HCl 1 gm/Sodium Chloride 250 ml @ 250 mls/hr 1X ONCE 02/12/17 19:30 02/12/17 20:29 DC 02/12/17 20:00 250 MLS/HR Vecuronium [place] (Norcuron Bolus) 5 mg PRN Q30MIN PRN 02/13/17 11:15 Warfarin Sodium (Coumadin Per Pharmacy) 1 each PRN DAILY PRN 02/13/17 11:45 Cancel Lab Laboratory Tests Test 02/22/17 16:37 02/22/17 16:40 02/23/17 05:40 Glucose (Fingerstick) 160 mg/dL (70-99) Fibrinogen 273 mg/dL (200-440) White Blood Count 55.2 x10^3/uL (4.0-11.0) Red Blood Count 2.39 x10^6/uL (3.50-5.40) Hemoglobin 7.3 g/dL (12.0-15.5) Hematocrit 21.6 % (36.0-47.0) Mean Corpuscular Volume 90 fL (79-100) Mean Corpuscular Hemoglobin 31 pg (25-35) Mean Corpuscular Hemoglobin Concent 34 g/dL (31-37) Red Cell Distribution Width 15.4 % (11.5-14.5) Platelet Count 197 x10^3/uL (140-400) Neutrophils (%) (Auto) 91 % (31-73) Lymphocytes (%) (Auto) 4 % (24-48) Monocytes (%) (Auto) 5 % (0-9) Eosinophils (%) (Auto) 0 % (0-3) Basophils (%) (Auto) 0 % (0-3) Neutrophils # (Auto) 50.2 x10^3uL (1.8-7.7) Lymphocytes # (Auto) 1.9 x10^3/uL (1.0-4.8) Monocytes # (Auto) 2.9 x10^3/uL (0.0-1.1) Eosinophils # (Auto) 0.0 x10^3/uL (0.0-0.7) Basophils # (Auto) 0.1 x10^3/uL (0.0-0.2) Sodium Level 134 mmol/L (136-145) Potassium Level 4.8 mmol/L (3.5-5.1) Chloride Level 97 mmol/L (98-107) Carbon Dioxide Level 23 mmol/L (21-32) Anion Gap 14 (6-14) Blood Urea Nitrogen 125 mg/dL (7-20) Creatinine 4.8 mg/dL (0.6-1.0) Estimated GFR (Cockcroft-Gault) 11.4 Glucose Level 177 mg/dL (70-99) Calcium Level 7.8 mg/dL (8.5-10.1) ELIAZAR GREER MD Feb 23, 2017 12:19
--- NOTE | 2017-02-23 15:55 | PDOC ---
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 Ethics committee on case. Awaiting court results re: allow natural Vent: AC//420/35%/ O2 Sat 99%, PEEP5 Vitals Vitals Vital Signs Date Time Temp Pulse Resp B/P (MAP) Pulse Ox O2 Delivery O2 Flow Rate FiO2 02/23/17 15: 100 Ventilator 02/23/17 15:00 101 28 161/81 (107) 02/23/17 12:00 98.5 98.5 Physical Exam General: Other (On vent, nonresponsive) Heart: Regular rate, Normal S1, Normal S2, No murmurs, Gallops Lungs: Crackles Abdomen: Normal bowel sounds, Soft, No tenderness, No hepatosplenomegaly, No masses Extremities: No clubbing, No cyanosis, No edema, Normal pulses, No tenderness/ swelling Skin: No breakdown, No significant lesion Labs LABS Laboratory Tests Test 02/22/17 16:37 02/22/17 16:40 02/23/17 05:40 Glucose (Fingerstick) 160 mg/dL (70-99) Fibrinogen 273 mg/dL (200-440) White Blood Count 55.2 x10^3/uL (4.0-11.0) Red Blood Count 2.39 x10^6/uL (3.50-5.40) Hemoglobin 7.3 g/dL (12.0-15.5) Hematocrit 21.6 % (36.0-47.0) Mean Corpuscular Volume 90 fL (79-100) Mean Corpuscular Hemoglobin 31 pg (25-35) Mean Corpuscular Hemoglobin Concent 34 g/dL (31-37) Red Cell Distribution Width 15.4 % (11.5-14.5) Platelet Count 197 x10^3/uL (140-400) Neutrophils (%) (Auto) 91 % (31-73) Lymphocytes (%) (Auto) 4 % (24-48) Monocytes (%) (Auto) 5 % (0-9) Eosinophils (%) (Auto) 0 % (0-3) Basophils (%) (Auto) 0 % (0-3) Neutrophils # (Auto) 50.2 x10^3uL (1.8-7.7) Lymphocytes # (Auto) 1.9 x10^3/uL (1.0-4.8) Monocytes # (Auto) 2.9 x10^3/uL (0.0-1.1) Eosinophils # (Auto) 0.0 x10^3/uL (0.0-0.7) Basophils # (Auto) 0.1 x10^3/uL (0.0-0.2) Sodium Level 134 mmol/L (136-145) Potassium Level 4.8 mmol/L (3.5-5.1) Chloride Level 97 mmol/L (98-107) Carbon Dioxide Level 23 mmol/L (21-32) Anion Gap 14 (6-14) Blood Urea Nitrogen 125 mg/dL (7-20) Creatinine 4.8 mg/dL (0.6-1.0) Estimated GFR (Cockcroft-Gault) 11.4 Glucose Level 177 mg/dL (70-99) Calcium Level 7.8 mg/dL (8.5-10.1) Review of Systems Review of Systems ROS unable to be performed, pt nonresponsive on mechanical ventilator Assessment and Plan Assessmemt and Plan Problems Medical Problems: (1) Cardiac arrest Status: Acute (2) Elevated troponin Status: Acute (3) Hyperkalemia Status: Acute (4) Hypoglycemia Status: Acute (5) Hyponatremia Status: Acute cardiac arrest, asystole, unknown down time, s/p hypothermia Anoxic encephalopathy, off sedation, no response Normal corrected calcium Oliguric renal OLIGURIC RENAL FAILURE SNU resident HX schiz by documentation Sepsis with organ failure, needing pressor Thrombocytopenia ANemia, normocytic Hyponatremia Acute precipitous drop hgb 1. Continue to monitor. 2. Palliative care 3. HD per renal 4. Supportive care 5. Awaiting court orders etc to allow natural Problems: Comment Review of Relevant I have reviewed the following items reji (where applicable) has been applied. Labs Laboratory Tests Test 02/21/17 16:15 02/22/17 05:45 02/22/17 07:05 02/22/17 07:45 Glucose (Fingerstick) 140 mg/dL (70-99) Sodium Level 135 mmol/L (136-145) Potassium Level 4.4 mmol/L (3.5-5.1) Chloride Level 97 mmol/L (98-107) Carbon Dioxide Level 27 mmol/L (21-32) Anion Gap 11 (6-14) Blood Urea Nitrogen 91 mg/dL (7-20) Creatinine 3.9 mg/dL (0.6-1.0) Estimated GFR (Cockcroft-Gault) 14.5 BUN/Creatinine Ratio 23 (6-20) Glucose Level 159 mg/dL (70-99) Calcium Level 7.5 mg/dL (8.5-10.1) Total Bilirubin 1.1 mg/dL (0.2-1.0) Aspartate Amino Transf (AST/SGOT) 92 U/L (15-37) Alanine Aminotransferase (ALT/SGPT) 221 U/L (14-59) Alkaline Phosphatase 104 U/L (46-116) Total Protein 4.6 g/dL (6.4-8.2) Albumin 1.9 g/dL (3.4-5.0) Albumin/Globulin Ratio 0.7 (1.0-1.7) White Blood Count 51.2 x10^3/uL (4.0-11.0) Red Blood Count 1.39 x10^6/uL (3.50-5.40) Hemoglobin 4.4 g/dL (12.0-15.5) Hematocrit 13.2 % (36.0-47.0) Mean Corpuscular Volume 94 fL (79-100) Mean Corpuscular Hemoglobin 32 pg (25-35) Mean Corpuscular Hemoglobin Concent 34 g/dL (31-37) Red Cell Distribution Width 14.5 % (11.5-14.5) Platelet Count 177 x10^3/uL (140-400) Neutrophils (%) (Auto) 92 % (31-73) Lymphocytes (%) (Auto) 3 % (24-48) Monocytes (%) (Auto) 5 % (0-9) Eosinophils (%) (Auto) 0 % (0-3) Basophils (%) (Auto) 0 % (0-3) Neutrophils # (Auto) 47.3 x10^3uL (1.8-7.7) Lymphocytes # (Auto) 1.3 x10^3/uL (1.0-4.8) Monocytes # (Auto) 2.5 x10^3/uL (0.0-1.1) Eosinophils # (Auto) 0.0 x10^3/uL (0.0-0.7) Basophils # (Auto) 0.0 x10^3/uL (0.0-0.2) Segmented Neutrophils % 84 % (35-66) Band Neutrophils % 5 % (0-9) Lymphocytes % 3 % (24-48) Monocytes % 1 % (0-10) Metamyelocytes % 7 % (0-0) Toxic Granulation Slight Platelet Estimate Adequate (ADEQUATE) O2 Saturation 98 % (92-99) Arterial Blood pH 7.50 (7.35-7.45) Arterial Blood pCO2 at Patient Temp 28 mmHg (35-46) Arterial Blood pO2 at Patient Temp 158 mmHg (75-108) Arterial Blood HCO3 22 mmol/L (21-28) Arterial Blood Base Excess -2 mmol/L (-3-3) FiO2 35 Test 02/22/17 08:30 02/22/17 16:37 02/22/17 16:40 02/23/17 05:40 Hemoglobin 4.4 g/dL (12.0-15.5) 7.3 g/dL (12.0-15.5) Sodium Level 133 mmol/L (136-145) 134 mmol/L (136-145) Potassium Level 4.2 mmol/L (3.5-5.1) 4.8 mmol/L (3.5-5.1) Chloride Level 97 mmol/L (98-107) 97 mmol/L (98-107) Carbon Dioxide Level 25 mmol/L (21-32) 23 mmol/L (21-32) Anion Gap 11 (6-14) 14 (6-14) Blood Urea Nitrogen 99 mg/dL (7-20) 125 mg/dL (7-20) Creatinine 3.9 mg/dL (0.6-1.0) 4.8 mg/dL (0.6-1.0) Estimated GFR (Cockcroft-Gault) 14.5 11.4 Glucose Level 164 mg/dL (70-99) 177 mg/dL (70-99) Calcium Level 7.9 mg/dL (8.5-10.1) 7.8 mg/dL (8.5-10.1) Lactate Dehydrogenase 808 U/L (81-234) Glucose (Fingerstick) 160 mg/dL (70-99) Fibrinogen 273 mg/dL (200-440) White Blood Count 55.2 x10^3/uL (4.0-11.0) Red Blood Count 2.39 x10^6/uL (3.50-5.40) Hematocrit 21.6 % (36.0-47.0) Mean Corpuscular Volume 90 fL (79-100) Mean Corpuscular Hemoglobin 31 pg (25-35) Mean Corpuscular Hemoglobin Concent 34 g/dL (31-37) Red Cell Distribution Width 15.4 % (11.5-14.5) Platelet Count 197 x10^3/uL (140-400) Neutrophils (%) (Auto) 91 % (31-73) Lymphocytes (%) (Auto) 4 % (24-48) Monocytes (%) (Auto) 5 % (0-9) Eosinophils (%) (Auto) 0 % (0-3) Basophils (%) (Auto) 0 % (0-3) Neutrophils # (Auto) 50.2 x10^3uL (1.8-7.7) Lymphocytes # (Auto) 1.9 x10^3/uL (1.0-4.8) Monocytes # (Auto) 2.9 x10^3/uL (0.0-1.1) Eosinophils # (Auto) 0.0 x10^3/uL (0.0-0.7) Basophils # (Auto) 0.1 x10^3/uL (0.0-0.2) Laboratory Tests Test 02/22/17 16:37 02/22/17 16:40 02/23/17 05:40 Glucose (Fingerstick) 160 mg/dL (70-99) Fibrinogen 273 mg/dL (200-440) White Blood Count 55.2 x10^3/uL (4.0-11.0) Red Blood Count 2.39 x10^6/uL (3.50-5.40) Hemoglobin 7.3 g/dL (12.0-15.5) Hematocrit 21.6 % (36.0-47.0) Mean Corpuscular Volume 90 fL (79-100) Mean Corpuscular Hemoglobin 31 pg (25-35) Mean Corpuscular Hemoglobin Concent 34 g/dL (31-37) Red Cell Distribution Width 15.4 % (11.5-14.5) Platelet Count 197 x10^3/uL (140-400) Neutrophils (%) (Auto) 91 % (31-73) Lymphocytes (%) (Auto) 4 % (24-48) Monocytes (%) (Auto) 5 % (0-9) Eosinophils (%) (Auto) 0 % (0-3) Basophils (%) (Auto) 0 % (0-3) Neutrophils # (Auto) 50.2 x10^3uL (1.8-7.7) Lymphocytes # (Auto) 1.9 x10^3/uL (1.0-4.8) Monocytes # (Auto) 2.9 x10^3/uL (0.0-1.1) Eosinophils # (Auto) 0.0 x10^3/uL (0.0-0.7) Basophils # (Auto) 0.1 x10^3/uL (0.0-0.2) Sodium Level 134 mmol/L (136-145) Potassium Level 4.8 mmol/L (3.5-5.1) Chloride Level 97 mmol/L (98-107) Carbon Dioxide Level 23 mmol/L (21-32) Anion Gap 14 (6-14) Blood Urea Nitrogen 125 mg/dL (7-20) Creatinine 4.8 mg/dL (0.6-1.0) Estimated GFR (Cockcroft-Gault) 11.4 Glucose Level 177 mg/dL (70-99) Calcium Level 7.8 mg/dL (8.5-10.1) Microbiology 02/15/17 Blood Culture - Final, Complete NO GROWTH AFTER 5 DAYS 02/12/17 Urine Culture - Final, Complete 02/12/17 Urine Culture Result 1 (ELIZABETH) - Final, Complete Medications Current Medications Calcium Chloride 1,000 mg 1X ONCE IV Last administered on 02/12/17 15:35; Start 02/12/17 at 16:00; Stop 02/12/17 at 16:35; Status DC Dextrose (Dextrose 50%-Water Syringe) 25 gm 1X ONCE IV Last administered on 15:33; Start 02/12/17 at 16:00; Stop 02/12/17 at 16:35; Status DC Sodium Bicarbonate 50 meq 1X ONCE IV Last administered on 02/12/17 15:35; Start 02/12/17 at 16:00; Stop 02/12/17 at 16:35; Status DC Furosemide (Lasix) 40 mg 1X ONCE IVP Last administered on 02/12/17 16:42; Start 02/12/17 at 16:30; Stop 02/12/17 at 16:35; Status DC Sodium Chloride 1,000 ml @ 1,000 mls/hr Q1H IV Last administered on 02/12/17 15:50; Start 02/12/17 at 16:57; Stop 02/13/17 at 07:23; Status DC Fentanyl Citrate (Fentanyl 2ml Vial) 25 mcg PRN Q30MIN PRN IV SED; Start at 17:00 Lorazepam (Ativan) 1 mg PRN Q30MIN PRN IV SEDATION; Start 02/12/17 at 17:00 Fentanyl Citrate 30 ml @ 2.5 mls/hr CONT PRN PRN IV IVF Last administered on 03:27; Start 02/12/17 at 17:00; Stop 02/20/17 at 10:36; Status DC Propofol 100 ml @ 0 mls/hr CONT PRN IV SEE I/O RECORD; Start 02/12/17 at 17:00; Stop 02/20/17 at 10:36; Status DC Vecuronium Ferguson (Norcuron Bolus) DOSE AT 0.1 mg/kg PRN Q30MIN PRN IV SHIVERING Last administered on 02/12/17 19:46; Start 02/12/17 at 17:00; Stop 02/13 at 11:01; Status DC Meperidine HCl (Demerol) 12.5 mg PRN Q30MIN PRN IV SHIVERING; Start 02/12/17 at 17:00 Multi-Ingred Cream/Lotion/Oil/ Oint (Artificial Tears Eye Oint) 1 silvestre PRN Q6HRS PRN OU 0.5 INCH FOR DRY EYE Last administered on 02/23/17 07:34; Start at 17:00 Famotidine (Pepcid) 20 mg BID IVP Last administered on 02/14/17 10:47; Start at 09:00; Stop 02/14/17 at 16:23; Status DC Aspirin (Aspirin) 300 mg DAILY [place] Last administered on 02/23/17 07:27; Start 02/13/17 at 09:00 Sodium Chloride (Normal Saline Flush) 3 ml QSHIFT PRN IV AFTER MEDS AND BLOOD DRAWS; Start 02/12/17 at 17:00 Acetaminophen (Tylenol) 650 mg Q6HRS NG Last administered on 02/13/17 05:51; Start 02/12/17 at 18:00; Stop 02/13/17 at 17:59; Status DC Acetaminophen (Acetaminophen Supp) 650 mg PRN Q6HRS PRN [place] MILD PAIN / TEMP; Start 02/13/17 at 17:00 Acetaminophen (Tylenol) 650 mg PRN Q6HRS PRN NG MILD PAIN / TEMP Last administered on 02/23/17 13:02; Start 02/13/17 at 17:00 Info 1 ea DAILY PRN MC PER PROTOCOL; Start 02/14/17 at 17:00 Sodium Chloride 500 ml @ 500 mls/hr 1X ONCE IV Last administered on 02/12/17 16:30; Start 02/12/17 at 17:15; Stop 02/12/17 at 18:14; Status DC Sodium Chloride 500 ml @ 500 mls/hr 1X ONCE IV Last administered on 02/12/17 16:50; Start 02/12/17 at 17:15; Stop 02/12/17 at 18:14; Status DC Sodium Chloride 1,000 ml @ 100 mls/hr Q10H IV Last administered on 02/13/17 06 :36; Start 02/12/17 at 19:00; Stop 02/13/17 at 10:51; Status DC Famotidine (Pepcid) 20 mg 1X ONCE PO Last administered on 02/12/17 19:57; Start 02/12/17 at 17:30; Stop 02/12/17 at 17:34; Status DC Methylprednisolone Sodium Succinate (SOLU-Medrol 40MG VIAL) 100 mg TID IV Last administered on 02/14/17 11:01; Start 02/12/17 at 18:00; Stop 02/14/17 at 12:00; Status DC Sodium Chloride 1,000 ml @ 1,000 mls/hr 1X ONCE IV Last administered on 19:31; Start 02/12/17 at 18:15; Stop 02/12/17 at 19:14; Status DC Piperacillin Sod/ Tazobactam Sod (Zosyn Per Pharmacy) 1 each PRN DAILY PRN MC SEE COMMENTS; Start 02/12/17 at 19:15; Stop 02/18/17 at 07:22; Status DC Vancomycin HCl (Vanco Per Pharmacy) 1 each PRN DAILY PRN MC SEE COMMENTS Last administered on 02/13/17 16:50; Start 02/12/17 at 19:15; Stop 02/14/17 at 07:57; Status DC Piperacillin Sod/ Tazobactam Sod 3.375 gm/Sodium Chloride 50 ml @ 100 mls/hr Q6HRS IV Last administered on 02/15/17 05:58; Start 02/12/17 at 19:30; Stop 02/15 at 09:37; Status DC Vancomycin HCl 1 gm/Sodium Chloride 250 ml @ 250 mls/hr 1X ONCE IV Last administered on 02/12/17 20:00; Start 02/12/17 at 19:30; Stop 02/12/17 at 20:29; Status DC Sodium Bicarbonate 50 meq 1X ONCE IV Last administered on 02/12/17 19:59; Start 02/12/17 at 19:30; Stop 02/12/17 at 19:31; Status DC Norepinephrine Bitartrate 250 ml @ 0 mls/hr CONT PRN IV SEE I/O RECORD Last administered on 02/16/17 07:18; Start 02/12/17 at 19:30; Stop 02/20/17 at 10:36 ; Status DC Norepinephrine Bitartrate 250 ml @ As Directed STK-MED ONCE IV ; Start 02/12/17 at 19:25; Stop 02/12/17 at 19:26; Status DC Vancomycin HCl 750 mg/Sodium Chloride 250 ml @ 250 mls/hr Q24H IV Last administered on 02/13/17 20:34; Start 02/13/17 at 20:00; Stop 02/14/17 at 07:57; Status DC Vancomycin HCl 1 each 1X ONCE MC ; Start 02/14/17 at 19:30; Stop 02/14/17 at 19: 31; Status Cancel Sodium Chloride 1,000 ml @ 1,000 mls/hr 1X ONCE IV Last administered on 05:05; Start 02/13/17 at 04:45; Stop 02/13/17 at 05:44; Status DC Sodium Chloride 1,000 ml @ 1,000 mls/hr 1X ONCE IV Last administered on 05:35; Start 02/13/17 at 05:30; Stop 02/13/17 at 06:29; Status DC Magnesium Sulfate/ Dextrose 50 ml @ 25 mls/hr PRN DAILY PRN IV for Mag < 1.7 on am labs; Start 02/13/17 at 10:45 Dextrose/Sodium Chloride 1,000 ml @ 75 mls/hr [id number] IV Last administered on 02/15/17 01:52; Start 02/13/17 at 11:00; Stop 02/15/17 at 08:52; Status DC Vecuronium Ferguson (Norcuron Bolus) 5 mg PRN Q30MIN PRN IV SHIVERING; Start 02/13/17 at 11:15 Lidocaine/Sodium Bicarbonate (Buffered Lidocaine 1%) 3 ml 1X ONCE IJ Last administered on 02/13/17 11:40; Start 02/13/17 at 11:15; Stop 02/13/17 at 11:26; Status DC Heparin Sodium/ Sodium Chloride 60 unit 1X ONCE IV Last administered on 11:40; Start 02/13/17 at 11:15; Stop 02/13/17 at 11:26; Status DC Lidocaine/Sodium Bicarbonate (Buffered Lidocaine 1%) 20 ml STK-MED ONCE IJ ; Start 02/13/17 at 11:22; Stop 02/13/17 at 11:29; Status DC Heparin Sodium (Porcine) (Heparin Sodium) 2,075 unit 1X ONCE IV Last administered on 02/13/17 12:45; Start 02/13/17 at 11:45; Stop 02/13/17 at 11:56; Status DC Heparin Sodium/ Dextrose 500 ml @ 16.5 mls/hr CONT PRN IV SEE I/O RECORD Last administered on 02/13/17 12:47; Start 02/13/17 at 11:45; Stop 02/14/17 at 13:53; Status DC Heparin Sodium (Porcine) (Heparin Sodium) 1,550 unit PRN Q6HRS PRN IV FOR UFH LEVEL LESS THAN 0.2 Last administered on 02/13/17 20:22; Start 02/13/17 at 11:45 ; Stop 02/14/17 at 13:53; Status DC Heparin Sodium (Porcine) (Heparin Sodium) 800 unit PRN Q6HRS PRN IV FOR UFH LEVEL 0.2 - 0.29 Last administered on 02/14/17 02:34; Start 02/13/17 at 11:45; Stop 02/14/17 at 13:53; Status DC Warfarin Sodium (Coumadin Per Pharmacy) 1 each PRN DAILY PRN MC PER PROTOCOL; Start 02/13/17 at 11:45; Status Cancel Info (Anti-Coagulation Monitoring By Pharmacy) 1 each PRN DAILY PRN MC SEE COMMENTS; Start 02/13/17 at 13:00; Stop 02/14/17 at 16:28; Status DC Calcium Chloride 1,000 mg STK-MED ONCE IV ; Start 02/12/17 at 10:00; Stop at 16:27; Status DC Epinephrine HCl (EPINEPHrine SYRINGE) 1 mg STK-MED ONCE .ROUTE ; Start 02/12/17 at 10:00; Stop 02/13/17 at 16:27; Status DC Dextrose (Dextrose 50%-Water Syringe) 25 gm STK-MED ONCE IV ; Start 02/12/17 at 10:00; Stop 02/13/17 at 16:27; Status DC Sodium Bicarbonate 50 meq STK-MED ONCE .ROUTE ; Start 02/12/17 at 10:00; Stop 02/13/17 at 16:27; Status DC Methylprednisolone Sodium Succinate (SOLU-Medrol 125MG VIAL) 100 mg TID IV Last administered on 02/23/17 13:02; Start 02/14/17 at 18:00 Norepinephrine Bitartrate 250 ml @ 0 mls/hr CONT PRN IV SEE I/O RECORD; Start 02/14/17 at 15:30; Status Cancel Famotidine (Pepcid) 20 mg DAILY IVP Last administered on 02/23/17 07:27; Start 02/15/17 at 09:00 Amino Acids/ Glycerin/ Electrolytes 1,000 ml @ 80 mls/hr [id number] IV Last administered on 02/15/17 09:32; Start 02/15/17 at 08:45; Stop 02/15/17 at 15:14; Status DC Albumin Human 100 ml @ 100 mls/hr 1X ONCE IV Last administered on 02/15/17 09 :30; Start 02/15/17 at 08:45; Stop 02/15/17 at 09:44; Status DC Furosemide (Lasix) 40 mg 1X ONCE IVP ; Start 02/15/17 at 08:45; Stop 02/15/17 at 09:18; Status DC Piperacillin Sod/ Tazobactam Sod 2.25 gm/Sodium Chloride 50 ml @ 100 mls/hr Q6HRS IV Last administered on 02/16/17 05:52; Start 02/15/17 at 12:00; Stop 03/25 at 09:17; Status DC Daptomycin 340 mg/ Sodium Chloride 50 ml @ 100 mls/hr ONCE ONCE IV Last administered on 02/15/17 11:15; Start 02/15/17 at 11:15; Stop 02/15/17 at 11:44; Status DC Dextrose/Sodium Chloride 1,000 ml @ 40 mls/hr Q24H IV Last administered on 23:30; Start 02/15/17 at 15:15 Lidocaine/Sodium Bicarbonate (Buffered Lidocaine 1%) 3 ml 1X ONCE IJ Last administered on 02/15/17 16:00; Start 02/15/17 at 15:45; Stop 02/15/17 at 15:46; Status DC Heparin Sodium/ Sodium Chloride 6,000 unit 1X ONCE IV ; Start 02/15/17 at 15:45 ; Stop 02/15/17 at 15:46; Status DC Sodium Chloride 1,000 ml @ 1,000 mls/hr Q1H PRN IV hypotension; Start 02/16/17 at 06:38; Stop 02/16/17 at 12:37; Status DC Info (PHARMACY MONITORING -- do not chart) 1 each PRN DAILY PRN MC SEE COMMENTS ; Start 02/16/17 at 06:45; Stop 02/22/17 at 07:49; Status DC Info (PHARMACY MONITORING -- do not chart) 1 each PRN DAILY PRN MC SEE COMMENTS ; Start 02/16/17 at 06:45; Stop 02/16/17 at 09:19; Status DC Info (PHARMACY MONITORING -- do not chart) 1 each PRN DAILY PRN MC SEE COMMENTS ; Start 02/16/17 at 06:45; Stop 02/16/17 at 09:19; Status DC Albumin Human 100 ml @ 100 mls/hr 1X ONCE IV Last administered on 02/16/17 07:18; Start 02/16/17 at 07:00; Stop 02/16/17 at 07:59; Status DC Piperacillin Sod/ Tazobactam Sod 2.25 gm/Sodium Chloride 50 ml @ 100 mls/hr Q8HRS IV Last administered on 02/18/17 05:55; Start 02/16/17 at 14:00; Stop at 07:22; Status DC Daptomycin 340 mg/ Sodium Chloride 50 ml @ 100 mls/hr QODAY IV Last administered on 02/17/17 12:22; Start 02/17/17 at 09:00; Stop 02/18/17 at 07:22 ; Status DC Sodium Chloride 1,000 ml @ 1,000 mls/hr Q1H PRN IV hypotension; Start 02/17/17 at 08:30; Stop 02/17/17 at 16:00; Status DC Albumin Human 200 ml @ 200 mls/hr 1X PRN PRN IV Hypotension; Start 02/17/17 at 08:30; Stop 02/17/17 at 16:00; Status DC Sodium Chloride 1,000 ml @ 400 mls/hr Q2H30M PRN IV PATENCY; Start 02/17/17 at 08:30; Stop 02/17/17 at 16:00; Status DC Info (PHARMACY MONITORING -- do not chart) 1 each PRN DAILY PRN MC SEE COMMENTS ; Start 02/17/17 at 08:30; Status UNV Info (PHARMACY MONITORING -- do not chart) 1 each PRN DAILY PRN MC SEE COMMENTS ; Start 02/17/17 at 08:30; Status UNV Heparin Sodium (Porcine) (Heparin Sq) 5,000 unit Q8HRS SQ Last administered on 02/22/17 05:49; Start 02/17/17 at 14:00; Stop 02/22/17 at 14:24; Status DC Bisacodyl (Dulcolax Supp) 10 mg PRN DAILY PRN [place] CONSTIPATION; Start 02/17/17 at 15:00 Polyethylene Glycol (miraLAX PACKET) 17 gm PRN DAILY PRN [place] CONSTIPATION; Start 02/17/17 at 15:00 Levetiracetam 500 mg/Sodium Chloride 100 ml @ 400 mls/hr Q12HR IV Last administered on 02/23/17 08:24; Start 02/17/17 at 21:00 Vancomycin HCl (Vanco Per Pharmacy) 1 each PRN DAILY PRN MC SEE COMMENTS Last administered on 02/23/17 11:11; Start 02/18/17 at 07:30 Vancomycin HCl 1.5 gm/Sodium Chloride 500 ml @ 250 mls/hr 1X ONCE IV Last administered on 02/18/17 14:43; Start 02/18/17 at 14:30; Stop 02/18/17 at 16:29 ; Status DC Vancomycin HCl 1 each 1X ONCE MC Last administered on 02/20/17 05:00; Start 02/20/17 at 05:00; Stop 02/20/17 at 05:01; Status DC Sodium Chloride 1,000 ml @ 1,000 mls/hr Q1H PRN IV hypotension; Start 02/19/17 at 09:08; Stop 02/19/17 at 15:07; Status DC Albumin Human 200 ml @ 200 mls/hr 1X PRN PRN IV Hypotension; Start 02/19/17 at 09:15; Stop 02/19/17 at 15:14; Status DC Sodium Chloride 1,000 ml @ 400 mls/hr Q2H30M PRN IV PATENCY; Start 02/19/17 at 09:08; Stop 02/19/17 at 21:07; Status DC Info (PHARMACY MONITORING -- do not chart) 1 each PRN DAILY PRN MC SEE COMMENTS ; Start 02/19/17 at 09:15; Stop 02/19/17 at 09:17; Status DC Info (PHARMACY MONITORING -- do not chart) 1 each PRN DAILY PRN MC SEE COMMENTS ; Start 02/19/17 at 09:15; Stop 02/20/17 at 12:35; Status DC Vancomycin HCl 500 mg/Sodium Chloride 100 ml @ 100 mls/hr QMWF IV Last administered on 02/21/17 16:17; Start 02/21/17 at 16:00 Sodium Chloride 1,000 ml @ 1,000 mls/hr Q1H PRN IV hypotension; Start 02/21/17 at 08:14; Stop 02/21/17 at 14:13; Status DC Diphenhydramine HCl (Benadryl) 25 mg 1X PRN PRN IV ITCHING; Start 02/21/17 at 08:15; Stop 02/22/17 at 08:14; Status DC Diphenhydramine HCl (Benadryl) 25 mg 1X PRN PRN IV ITCHING; Start 02/21/17 at 08:15; Stop 02/22/17 at 08:14; Status DC Sodium Chloride (Normal Saline Flush) 10 ml 1X PRN PRN IV AP catheter pack; Start 02/21/17 at 08:15; Stop 02/22/17 at 08:14; Status DC Sodium Chloride (Normal Saline Flush) 10 ml 1X PRN PRN IV DOOR CAPTAIN catheter pack; Start 02/21/17 at 08:15; Stop 02/22/17 at 08:14; Status DC Sodium Chloride 1,000 ml @ 400 mls/hr Q2H30M PRN IV PATENCY; Start 02/21/17 at 08:14; Stop 02/21/17 at 20:13; Status DC Info (PHARMACY MONITORING -- do not chart) 1 each PRN DAILY PRN MC SEE COMMENTS ; Start 02/21/17 at 08:15 Active Scripts Active Reported Latuda (Lurasidone Hcl) 20 Mg Tablet 20 Mg PO AFTRNOON Remeron (Mirtazapine) 15 Mg Tablet 1 Tab PO QHS Oxybutynin Chloride Er (Oxybutynin Chloride) 10 Mg Tab.er.24 1 Tab PO DAILY Multivitamins (Multivitamin) 1 Each Tablet 1 Tab PO DAILY Latuda (Lurasidone Hcl) 20 Mg Tablet 10 Mg PO AFTRNOON Lorazepam 0.5 Mg Tablet 1 Tab PO QEVNG Duoneb 0.5-3(2.5) Mg/3 Ml (Albuterol/Ipratropium) 3 Ml Ampul.neb 3 Ml NEB BID Duoneb 0.5-3(2.5) Mg/3 Ml (Albuterol/Ipratropium) 3 Ml Ampul.neb 3 Ml NEB Q4H PRN Calcium Carbonate 500 Mg Tablet 1,000 Mg PO Q4HRS PRN Nicotine Gum (Nicotine Polacrilex) 4 Mg Gum 4 Mg BC Milk Of Magnesia (Magnesium Hydroxide) 400 Mg/5 Ml Oral.susp 400 Mg PO Q3DAYS PRN Milk Of Magnesia (Magnesium Hydroxide) 400 Mg/5 Ml Oral.susp 400 Mg PO Q3DAYS PRN Lorazepam 1 Mg Tablet 1 Tab PO Q12HR PRN Ibuprofen 400 Mg Tablet 200 Mg PO Q8HRS PRN Cough Drops (Eucalyptus Oil/Menthol) 7 Mg Lozenge 7 Mg MM Q4HRS PRN Tylenol (Acetaminophen) 325 Mg Tablet 650 Mg PO Q4HRS PRN Lovaza ([place]-3 Acid Ethyl Esters) 1 Gm Capsule 1 Cap PO QID Gabapentin 400 Mg Capsule 400 Mg PO QID Lorazepam 1 Mg Tablet 1 Tab PO BID Latuda (Lurasidone Hcl) 60 Mg Tablet 60 Mg PO BID Advair 100-50 Diskus (Fluticasone/Salmeterol) 1 Each Disk.w.dev 1 Puff IH BID Acetaminophen 325 Mg Capsule 650 Mg PO BID Vitamin D (Cholecalciferol (Vitamin D3)) 2,000 Unit Capsule 800 Unit PO DAILY Vitals/I & O Vital Sign - Last 24 Hours 02/22/17 02/22/17 02/22/17 02/22/17 16:00 16:00 17:00 17:05 Temp 99.2 99.2 Pulse 95 93 Resp 30 30 B/P (MAP) 162/87 (112) 155/90 (111) Pulse Ox 100 100 100 O2 Delivery Mechanical Ventilator Ventilator Ventilator Ventilator 02/22/17 02/22/17 02/22/17 02/22/17 18:00 19:00 20:00 20:00 Temp 98.2 98.2 Pulse 99 99 107 Resp 30 30 31 B/P (MAP) 153/93 (113) 153/93 (113) 155/94 (114) Pulse Ox 99 99 99 O2 Delivery Ventilator Ventilator Mechanical Ventilator Ventilator 02/22/17 02/22/17 02/22/17 02/22/17 20:28 21:00 21:41 22:00 Pulse 104 104 Resp 31 31 B/P (MAP) 148/88 (108) 164/89 (114) Pulse Ox 100 99 99 99 O2 Delivery Ventilator Ventilator Ventilator Ventilator 9/02/22/17 02/23/17 02/23/17 23:00 23:45 00:00 00:00 Temp 98.8 98.8 Pulse 99 99 Resp 25 31 B/P (MAP) 147/92 (110) 161/79 (106) Pulse Ox 99 98 99 O2 Delivery Ventilator Ventilator Mechanical Ventilator Ventilator 02/23/17 02/23/17 02/23/17 02/23/17 01:00 01:45 02:00 03:00 Pulse 98 97 96 Resp 30 28 28 B/P (MAP) 158/95 (116) 159/84 (109) 149/82 (104) Pulse Ox 99 99 99 99 O2 Delivery Ventilator Ventilator Ventilator Ventilator 02/23/17 02/23/17 02/23/17 02/23/17 03:32 03:40 04:00 05:00 Temp 98.0 98.0 Pulse 94 96 Resp 28 B/P (MAP) 143/80 (101) 165/91 (115) Pulse Ox 99 94 96 O2 Delivery Mechanical Ventilator Ventilator Ventilator Ventilator 02/23/17 02/23/17 02/23/17 02/23/17 06:00 06:19 07:00 07:58 Temp 98.3 98.3 Pulse 94 96 Resp 28 30 B/P (MAP) 167/95 (119) 157/72 (100) Pulse Ox 100 100 99 O2 Delivery Ventilator Ventilator Ventilator Mechanical Ventilator 02/23/17 02/23/17 02/23/17 02/23/17 08:00 08:45 09:00 10:00 Pulse 100 100 106 Resp 28 28 B/P (MAP) 173/76 (108) 166/81 (109) 163/89 (113) Pulse Ox 99 100 98 100 O2 Delivery Ventilator Ventilator Ventilator Ventilator 02/23/17 02/23/17 02/23/17 02/23/17 10:09 11:00 11:36 12:00 Pulse 103 Resp 28 B/P (MAP) 163/85 (111) Pulse Ox 100 100 99 O2 Delivery Ventilator Ventilator Ventilator Mechanical Ventilator 02/23/17 02/23/17 02/23/17 02/23/17 12:00 13:03 13:40 14:00 Temp 98.5 98.5 Pulse 105 103 101 Resp 28 28 28 B/P (MAP) 156/80 (105) 159/84 (109) 148/81 (103) Pulse Ox 99 99 99 99 O2 Delivery Ventilator Ventilator Ventilator Ventilator 02/23/17 02/23/17 15:00 15:17 Pulse 101 Resp 28 B/P (MAP) 161/81 (107) Pulse Ox 99 100 O2 Delivery Ventilator Ventilator Intake and Output 02/23/17 02/23/17 02/24/17 15:00 23:00 07:00 Intake Total 160 ml Output Total 123 ml Balance 37 ml HOANG ARAGON III DO Feb 23, 2017 15:55
[2017-02-23] MEDS: IV DEXTROSE 5 %-0.2 % NACL 1,000 ML IV SCH (22:55)
[2017-02-24] VITALS (26 sets, daily range): BP systolic 109–173; BP diastolic 64–104
[2017-02-24 06:34] LABS: CREATININE 5.7 mg/dL (0.6-1.0); GFR 9.4; POTASSIUM 5.2 mmol/L (3.5-5.1)
[2017-02-24 07:10] LABS: BASO # 0.3 x10^3/uL (0.0-0.2); BASO % 1 % (0-3); EOS % 0 % (0-3); LYMPH % 2 % (24-48); MEAN CORPUSCULAR HEMOGLOBIN 31 pg (25-35); MEAN CORPUSCULAR HGB CONC 33 g/dL (31-37); MEAN CORPUSCULAR VOLUME 95 fL (79-100); MONO % 2 % (0-9); NEUT % 95 % (31-73); PLATELET COUNT 192 x10^3/uL (140-400); RED CELL DISTRIBUTION WIDTH 15.4 % (11.5-14.5)
[2017-02-24 07:13] LABS: WHITE BLOOD COUNT 50.5 x10^3/uL (4.0-11.0)
--- NOTE | 2017-02-24 07:52 | RAD ---
Portable chest, 02/24/2017: History: Congestive heart failure Comparison is made to yesterday's study. The tip of the ET tube lies 6-7 cm above the ernst. An NG tube extends into the stomach. Bilateral jugular venous catheters extend into the inferior aspect of the superior vena cava. The heart size is normal. There is unchanged prominence of the pulmonary markings, particularly in the lung bases, compatible with a combination of fibrosis and probable minimal superimposed pneumonia. There is no evidence of pneumothorax or pleural fluid. IMPRESSION: No significant change since yesterday's study.
[2017-02-24] MEDS: ASPIRIN 300 MG SUPP.RECT PR SCH (08:13)
[2017-02-24] MEDS: FAMOTIDINE 20 MG/2 ML VIAL IVP SCH (08:13)
[2017-02-24] MEDS: methylPREDNISolone SOD SUCC PF 125 MG/2 ML VIAL. IV SCH ×2 (08:13→21:11)
[2017-02-24] MEDS ORDERED: IV NORMAL SALINE 1000ML BAG 1,000 ML IV PRN (08:19)
--- NOTE | 2017-02-24 08:27 | PDOC ---
Infectious Disease Note Subjective Subjective Off sedation 02/15, nonresponsive Intubated, FiO2 35% No fever las 24 hours ROS ROS unable to do Vital Sign Vital Signs Vital Signs Date Time Temp Pulse Resp B/P (MAP) Pulse Ox O2 Delivery O2 Flow Rate FiO2 02/24/17 08:14 98.1 98 24 154/84 (107) 99 Ventilator 98.1 Physical Exam PHYSICAL EXAM GENERAL: on vent HEENT: PERRL, OC/OP NECK: Supple, no JVD, no LN LUNGS: Clear HEART: S1S2, no gallop, no murmur ABD: Soft, NT, no organomegaly, no rebound EXT: No edema, no cyanosis TECHNICAL COMMUNICATOR: unresponsive on vent SKIN: No rash IV: ok Labs Lab Laboratory Tests Test 02/24/17 06:00 White Blood Count 50.5 x10^3/uL (4.0-11.0) Red Blood Count 2.00 x10^6/uL (3.50-5.40) Hemoglobin 6.2 g/dL (12.0-15.5) Hematocrit 19.0 % (36.0-47.0) Mean Corpuscular Volume 95 fL (79-100) Mean Corpuscular Hemoglobin 31 pg (25-35) Mean Corpuscular Hemoglobin Concent 33 g/dL (31-37) Red Cell Distribution Width 15.4 % (11.5-14.5) Platelet Count 192 x10^3/uL (140-400) Neutrophils (%) (Auto) 95 % (31-73) Lymphocytes (%) (Auto) 2 % (24-48) Monocytes (%) (Auto) 2 % (0-9) Eosinophils (%) (Auto) 0 % (0-3) Basophils (%) (Auto) 1 % (0-3) Neutrophils # (Auto) 48.0 x10^3uL (1.8-7.7) Lymphocytes # (Auto) 1.0 x10^3/uL (1.0-4.8) Monocytes # (Auto) 1.1 x10^3/uL (0.0-1.1) Eosinophils # (Auto) 0.0 x10^3/uL (0.0-0.7) Basophils # (Auto) 0.3 x10^3/uL (0.0-0.2) Sodium Level 132 mmol/L (136-145) Potassium Level 5.2 mmol/L (3.5-5.1) Chloride Level 96 mmol/L (98-107) Carbon Dioxide Level 23 mmol/L (21-32) Anion Gap 13 (6-14) Blood Urea Nitrogen 160 mg/dL (7-20) Creatinine 5.7 mg/dL (0.6-1.0) Estimated GFR (Cockcroft-Gault) 9.4 Glucose Level 183 mg/dL (70-99) Calcium Level 8.0 mg/dL (8.5-10.1) Micro BC MRSA Objective Assessment Fever - better - procalcitonin mild elevation MRSA sepsis/bacteremia, POA. 02/12. -TTE no evidence veg; Repeat BC from 02/15 negative Anemia Encephalopathy S/P Cardiac arrest Respiratory failure COPD Leukocytosis, on steroids, trending up DARYA. Now on HD Schizophrenia MRSA nares positive Plan Plan of Care Cont Vanc Await court decision Needs DNR/DNI Needs palliative extubation as overall prognosis is poor Critically ill MILAGROS GREER MD Feb 24, 2017 08:27
[2017-02-24] MEDS ORDERED: LABETALOL 20 MG/4 ML DISP.SYRIN. IVP PRN (08:30)
[2017-02-24] MEDS ORDERED: DIALYSIS PATIENT. MC PRN (08:30)
[2017-02-24] MEDS ORDERED: ACETAMINOPHEN 500 MG TABLET PO PRN (08:30)
[2017-02-24] MEDS ORDERED: diphenhydrAMINE 50 MG/ML VIAL IV PRN ×2 (08:30)
[2017-02-24] MEDS ORDERED: ALBUMIN HUMAN 25% 200 ML IV PRN (08:30)
[2017-02-24] MEDS ORDERED: ALBUMIN HUMAN 25% 200 ML IV ONE (09:45)
--- NOTE | 2017-02-24 10:10 | PDOC ---
Dialysis Progress Note Dialysis Note Dialysis Note Seen on Hemodialysis, tolerating treatment poorly (BP Dropped at onset of HD) RR has been ^ed Vitals on Hemodialysis: 134/101 (getting Albumin) 129 afeb General Appearance: prison Awake: does not track Neck: + JVD + JVP Chest: CTA Jame - few rales Heart: S1 S2 - tachy Abdomen - Soft NTND Extremities - No Edema ARF/ ATN Oligoanuric: Dialysis as below F 180 NR 3.0 Hrs 2 K 2.5 Ca 140 Na 35 HC03 Qb 350 + Qd 500+ Heparin 0 Units Uf 1-2 Kgs or to dry weight as tolerated Transfuse 1 Unit PRCBC's on HD as ordered May give 25-50 gms of 25% Albumin if needed to maintain Hemodynamic stability Treatment plan reviewed and discussed with psychology teacher Will reval on HD - RR is high, await Neuro and pulm eval Vitals Vital Signs Vital Signs Date Time Temp Pulse Resp B/P (MAP) Pulse Ox O2 Delivery O2 Flow Rate FiO2 02/24/17 09:18 100 Ventilator 02/24/17 09:00 119 25 117/64 (81) 02/24/17 08:14 98.1 98.1 Labs Last Labs Laboratory Tests Test 02/22/17 14:38 02/22/17 16:37 02/22/17 16:40 02/23/17 05:40 Clostridium difficile Toxin (PCR) Negative (Negative) Glucose (Fingerstick) 160 mg/dL (70-99) Fibrinogen 273 mg/dL (200-440) White Blood Count 55.2 x10^3/uL (4.0-11.0) Red Blood Count 2.39 x10^6/uL (3.50-5.40) Hemoglobin 7.3 g/dL (12.0-15.5) Hematocrit 21.6 % (36.0-47.0) Mean Corpuscular Volume 90 fL (79-100) Mean Corpuscular Hemoglobin 31 pg (25-35) Mean Corpuscular Hemoglobin Concent 34 g/dL (31-37) Red Cell Distribution Width 15.4 % (11.5-14.5) Platelet Count 197 x10^3/uL (140-400) Neutrophils (%) (Auto) 91 % (31-73) Lymphocytes (%) (Auto) 4 % (24-48) Monocytes (%) (Auto) 5 % (0-9) Eosinophils (%) (Auto) 0 % (0-3) Basophils (%) (Auto) 0 % (0-3) Neutrophils # (Auto) 50.2 x10^3uL (1.8-7.7) Lymphocytes # (Auto) 1.9 x10^3/uL (1.0-4.8) Monocytes # (Auto) 2.9 x10^3/uL (0.0-1.1) Eosinophils # (Auto) 0.0 x10^3/uL (0.0-0.7) Basophils # (Auto) 0.1 x10^3/uL (0.0-0.2) Sodium Level 134 mmol/L (136-145) Potassium Level 4.8 mmol/L (3.5-5.1) Chloride Level 97 mmol/L (98-107) Carbon Dioxide Level 23 mmol/L (21-32) Anion Gap 14 (6-14) Blood Urea Nitrogen 125 mg/dL (7-20) Creatinine 4.8 mg/dL (0.6-1.0) Estimated GFR (Cockcroft-Gault) 11.4 Glucose Level 177 mg/dL (70-99) Calcium Level 7.8 mg/dL (8.5-10.1) Test 02/24/17 06:00 White Blood Count 50.5 x10^3/uL (4.0-11.0) Red Blood Count 2.00 x10^6/uL (3.50-5.40) Hemoglobin 6.2 g/dL (12.0-15.5) Hematocrit 19.0 % (36.0-47.0) Mean Corpuscular Volume 95 fL (79-100) Mean Corpuscular Hemoglobin 31 pg (25-35) Mean Corpuscular Hemoglobin Concent 33 g/dL (31-37) Red Cell Distribution Width 15.4 % (11.5-14.5) Platelet Count 192 x10^3/uL (140-400) Neutrophils (%) (Auto) 95 % (31-73) Lymphocytes (%) (Auto) 2 % (24-48) Monocytes (%) (Auto) 2 % (0-9) Eosinophils (%) (Auto) 0 % (0-3) Basophils (%) (Auto) 1 % (0-3) Neutrophils # (Auto) 48.0 x10^3uL (1.8-7.7) Lymphocytes # (Auto) 1.0 x10^3/uL (1.0-4.8) Monocytes # (Auto) 1.1 x10^3/uL (0.0-1.1) Eosinophils # (Auto) 0.0 x10^3/uL (0.0-0.7) Basophils # (Auto) 0.3 x10^3/uL (0.0-0.2) Sodium Level 132 mmol/L (136-145) Potassium Level 5.2 mmol/L (3.5-5.1) Chloride Level 96 mmol/L (98-107) Carbon Dioxide Level 23 mmol/L (21-32) Anion Gap 13 (6-14) Blood Urea Nitrogen 160 mg/dL (7-20) Creatinine 5.7 mg/dL (0.6-1.0) Estimated GFR (Cockcroft-Gault) 9.4 Glucose Level 183 mg/dL (70-99) Calcium Level 8.0 mg/dL (8.5-10.1) Laboratory Tests Test 02/24/17 06:00 White Blood Count 50.5 x10^3/uL (4.0-11.0) Red Blood Count 2.00 x10^6/uL (3.50-5.40) Hemoglobin 6.2 g/dL (12.0-15.5) Hematocrit 19.0 % (36.0-47.0) Mean Corpuscular Volume 95 fL (79-100) Mean Corpuscular Hemoglobin 31 pg (25-35) Mean Corpuscular Hemoglobin Concent 33 g/dL (31-37) Red Cell Distribution Width 15.4 % (11.5-14.5) Platelet Count 192 x10^3/uL (140-400) Neutrophils (%) (Auto) 95 % (31-73) Lymphocytes (%) (Auto) 2 % (24-48) Monocytes (%) (Auto) 2 % (0-9) Eosinophils (%) (Auto) 0 % (0-3) Basophils (%) (Auto) 1 % (0-3) Neutrophils # (Auto) 48.0 x10^3uL (1.8-7.7) Lymphocytes # (Auto) 1.0 x10^3/uL (1.0-4.8) Monocytes # (Auto) 1.1 x10^3/uL (0.0-1.1) Eosinophils # (Auto) 0.0 x10^3/uL (0.0-0.7) Basophils # (Auto) 0.3 x10^3/uL (0.0-0.2) Sodium Level 132 mmol/L (136-145) Potassium Level 5.2 mmol/L (3.5-5.1) Chloride Level 96 mmol/L (98-107) Carbon Dioxide Level 23 mmol/L (21-32) Anion Gap 13 (6-14) Blood Urea Nitrogen 160 mg/dL (7-20) Creatinine 5.7 mg/dL (0.6-1.0) Estimated GFR (Cockcroft-Gault) 9.4 Glucose Level 183 mg/dL (70-99) Calcium Level 8.0 mg/dL (8.5-10.1) Assessment Assessment Problems Medical Problems: (1) Cardiac arrest Status: Acute (2) Elevated troponin Status: Acute (3) Hyperkalemia Status: Acute (4) Hypoglycemia Status: Acute (5) Hyponatremia Status: Acute Problems: Plan Plan of Care Problems Medical Problems: (1) Cardiac arrest Status: Acute (2) Elevated troponin Status: Acute (3) Hyperkalemia Status: Acute (4) Hypoglycemia Status: Acute (5) Hyponatremia Status: Acute ELIAZAR GREER MD Feb 24, 2017 10:10
--- NOTE | 2017-02-24 10:14 | PDOC ---
PROGRESS NOTES Assessment Problems Medical Problems: (1) Cardiac arrest Status: Acute (2) Elevated troponin Status: Acute (3) Hyperkalemia Status: Acute (4) Hypoglycemia Status: Acute (5) Hyponatremia Status: Acute S/p cardiac pulmonary arrest received hypothermia, CPR 20 minutes. Anoxic encephalopathy. Metabolic encephalopathy. Respiratory failure. Pulmonary infiltrate. Renal failure. Multi-organ failure. Sepsis. Lactic acidosis. Leukocytosis. HTN HLD COPD Anemia HCV, Hx ? EEG on 02/17/17: Abnormal. PLEDs. Sharp waves. Slowing. HCT on 02/12 and 02/19: Unremarkable. Plan Palliative care Poor prognosis, no meaningful recovery possible. Subjective none Objective Vital Signs Date Time Temp Pulse Resp B/P (MAP) Pulse Ox O2 Delivery O2 Flow Rate FiO2 02/24/17 10:03 128 30 137/104 (115) 100 Ventilator 02/24/17 08:14 98.1 98.1 Intake and Output 02/25/17 07:00 Intake Total 0 ml Balance 0 ml Tube Feeding 0 ml PHYSICAL EXAM On ventilator, no response PERRL. No spontaneous eye movements No motor response D.T.R.s 0-1+, plantars silent Review of Relevant I have reviewed the following items reji (where applicable) has been applied. Labs Laboratory Tests Test 02/22/17 14:38 02/22/17 16:37 02/22/17 16:40 02/23/17 05:40 Clostridium difficile Toxin (PCR) Negative (Negative) Glucose (Fingerstick) 160 mg/dL (70-99) Fibrinogen 273 mg/dL (200-440) White Blood Count 55.2 x10^3/uL (4.0-11.0) Red Blood Count 2.39 x10^6/uL (3.50-5.40) Hemoglobin 7.3 g/dL (12.0-15.5) Hematocrit 21.6 % (36.0-47.0) Mean Corpuscular Volume 90 fL (79-100) Mean Corpuscular Hemoglobin 31 pg (25-35) Mean Corpuscular Hemoglobin Concent 34 g/dL (31-37) Red Cell Distribution Width 15.4 % (11.5-14.5) Platelet Count 197 x10^3/uL (140-400) Neutrophils (%) (Auto) 91 % (31-73) Lymphocytes (%) (Auto) 4 % (24-48) Monocytes (%) (Auto) 5 % (0-9) Eosinophils (%) (Auto) 0 % (0-3) Basophils (%) (Auto) 0 % (0-3) Neutrophils # (Auto) 50.2 x10^3uL (1.8-7.7) Lymphocytes # (Auto) 1.9 x10^3/uL (1.0-4.8) Monocytes # (Auto) 2.9 x10^3/uL (0.0-1.1) Eosinophils # (Auto) 0.0 x10^3/uL (0.0-0.7) Basophils # (Auto) 0.1 x10^3/uL (0.0-0.2) Sodium Level 134 mmol/L (136-145) Potassium Level 4.8 mmol/L (3.5-5.1) Chloride Level 97 mmol/L (98-107) Carbon Dioxide Level 23 mmol/L (21-32) Anion Gap 14 (6-14) Blood Urea Nitrogen 125 mg/dL (7-20) Creatinine 4.8 mg/dL (0.6-1.0) Estimated GFR (Cockcroft-Gault) 11.4 Glucose Level 177 mg/dL (70-99) Calcium Level 7.8 mg/dL (8.5-10.1) Test 02/24/17 06:00 White Blood Count 50.5 x10^3/uL (4.0-11.0) Red Blood Count 2.00 x10^6/uL (3.50-5.40) Hemoglobin 6.2 g/dL (12.0-15.5) Hematocrit 19.0 % (36.0-47.0) Mean Corpuscular Volume 95 fL (79-100) Mean Corpuscular Hemoglobin 31 pg (25-35) Mean Corpuscular Hemoglobin Concent 33 g/dL (31-37) Red Cell Distribution Width 15.4 % (11.5-14.5) Platelet Count 192 x10^3/uL (140-400) Neutrophils (%) (Auto) 95 % (31-73) Lymphocytes (%) (Auto) 2 % (24-48) Monocytes (%) (Auto) 2 % (0-9) Eosinophils (%) (Auto) 0 % (0-3) Basophils (%) (Auto) 1 % (0-3) Neutrophils # (Auto) 48.0 x10^3uL (1.8-7.7) Lymphocytes # (Auto) 1.0 x10^3/uL (1.0-4.8) Monocytes # (Auto) 1.1 x10^3/uL (0.0-1.1) Eosinophils # (Auto) 0.0 x10^3/uL (0.0-0.7) Basophils # (Auto) 0.3 x10^3/uL (0.0-0.2) Sodium Level 132 mmol/L (136-145) Potassium Level 5.2 mmol/L (3.5-5.1) Chloride Level 96 mmol/L (98-107) Carbon Dioxide Level 23 mmol/L (21-32) Anion Gap 13 (6-14) Blood Urea Nitrogen 160 mg/dL (7-20) Creatinine 5.7 mg/dL (0.6-1.0) Estimated GFR (Cockcroft-Gault) 9.4 Glucose Level 183 mg/dL (70-99) Calcium Level 8.0 mg/dL (8.5-10.1) Laboratory Tests Test 02/24/17 06:00 White Blood Count 50.5 x10^3/uL (4.0-11.0) Red Blood Count 2.00 x10^6/uL (3.50-5.40) Hemoglobin 6.2 g/dL (12.0-15.5) Hematocrit 19.0 % (36.0-47.0) Mean Corpuscular Volume 95 fL (79-100) Mean Corpuscular Hemoglobin 31 pg (25-35) Mean Corpuscular Hemoglobin Concent 33 g/dL (31-37) Red Cell Distribution Width 15.4 % (11.5-14.5) Platelet Count 192 x10^3/uL (140-400) Neutrophils (%) (Auto) 95 % (31-73) Lymphocytes (%) (Auto) 2 % (24-48) Monocytes (%) (Auto) 2 % (0-9) Eosinophils (%) (Auto) 0 % (0-3) Basophils (%) (Auto) 1 % (0-3) Neutrophils # (Auto) 48.0 x10^3uL (1.8-7.7) Lymphocytes # (Auto) 1.0 x10^3/uL (1.0-4.8) Monocytes # (Auto) 1.1 x10^3/uL (0.0-1.1) Eosinophils # (Auto) 0.0 x10^3/uL (0.0-0.7) Basophils # (Auto) 0.3 x10^3/uL (0.0-0.2) Sodium Level 132 mmol/L (136-145) Potassium Level 5.2 mmol/L (3.5-5.1) Chloride Level 96 mmol/L (98-107) Carbon Dioxide Level 23 mmol/L (21-32) Anion Gap 13 (6-14) Blood Urea Nitrogen 160 mg/dL (7-20) Creatinine 5.7 mg/dL (0.6-1.0) Estimated GFR (Cockcroft-Gault) 9.4 Glucose Level 183 mg/dL (70-99) Calcium Level 8.0 mg/dL (8.5-10.1) Microbiology 02/15/17 Blood Culture - Final, Complete NO GROWTH AFTER 5 DAYS 02/12/17 Urine Culture - Final, Complete 02/12/17 Urine Culture Result 1 (ELIZABETH) - Final, Complete Medications Current Medications Calcium Chloride 1,000 mg 1X ONCE IV Last administered on 02/12/17 15:35; Start 02/12/17 at 16:00; Stop 02/12/17 at 16:35; Status DC Dextrose (Dextrose 50%-Water Syringe) 25 gm 1X ONCE IV Last administered on 15:33; Start 02/12/17 at 16:00; Stop 02/12/17 at 16:35; Status DC Sodium Bicarbonate 50 meq 1X ONCE IV Last administered on 02/12/17 15:35; Start 02/12/17 at 16:00; Stop 02/12/17 at 16:35; Status DC Furosemide (Lasix) 40 mg 1X ONCE IVP Last administered on 02/12/17 16:42; Start 02/12/17 at 16:30; Stop 02/12/17 at 16:35; Status DC Sodium Chloride 1,000 ml @ 1,000 mls/hr Q1H IV Last administered on 02/12/17 15:50; Start 02/12/17 at 16:57; Stop 02/13/17 at 07:23; Status DC Fentanyl Citrate (Fentanyl 2ml Vial) 25 mcg PRN Q30MIN PRN IV SED; Start at 17:00 Lorazepam (Ativan) 1 mg PRN Q30MIN PRN IV SEDATION; Start 02/12/17 at 17:00 Fentanyl Citrate 30 ml @ 2.5 mls/hr CONT PRN PRN IV IVF Last administered on 03:27; Start 02/12/17 at 17:00; Stop 02/20/17 at 10:36; Status DC Propofol 100 ml @ 0 mls/hr CONT PRN IV SEE I/O RECORD; Start 02/12/17 at 17:00; Stop 02/20/17 at 10:36; Status DC Vecuronium [place] (Norcuron Bolus) DOSE AT 0.1 mg/kg PRN Q30MIN PRN IV SHIVERING Last administered on 02/12/17 19:46; Start 02/12/17 at 17:00; Stop 02/13 at 11:01; Status DC Meperidine HCl (Demerol) 12.5 mg PRN Q30MIN PRN IV SHIVERING; Start 02/12/17 at 17:00 Multi-Ingred Cream/Lotion/Oil/ Oint (Artificial Tears Eye Oint) 1 silvestre PRN Q6HRS PRN OU 0.5 INCH FOR DRY EYE Last administered on 02/23/17 07:34; Start at 17:00 Famotidine (Pepcid) 20 mg BID IVP Last administered on 02/14/17 10:47; Start at 09:00; Stop 02/14/17 at 16:23; Status DC Aspirin (Aspirin) 300 mg DAILY [place] Last administered on 02/24/17 08:13; Start 02/13/17 at 09:00 Sodium Chloride (Normal Saline Flush) 3 ml QSHIFT PRN IV AFTER MEDS AND BLOOD DRAWS; Start 02/12/17 at 17:00 Acetaminophen (Tylenol) 650 mg Q6HRS NG Last administered on 02/13/17 05:51; Start 02/12/17 at 18:00; Stop 02/13/17 at 17:59; Status DC Acetaminophen (Acetaminophen Supp) 650 mg PRN Q6HRS PRN [place] MILD PAIN / TEMP; Start 02/13/17 at 17:00 Acetaminophen (Tylenol) 650 mg PRN Q6HRS PRN NG MILD PAIN / TEMP Last administered on 02/23/17 13:02; Start 02/13/17 at 17:00 Info 1 ea DAILY PRN MC PER PROTOCOL; Start 02/14/17 at 17:00 Sodium Chloride 500 ml @ 500 mls/hr 1X ONCE IV Last administered on 02/12/17 16:30; Start 02/12/17 at 17:15; Stop 02/12/17 at 18:14; Status DC Sodium Chloride 500 ml @ 500 mls/hr 1X ONCE IV Last administered on 02/12/17 16:50; Start 02/12/17 at 17:15; Stop 02/12/17 at 18:14; Status DC Sodium Chloride 1,000 ml @ 100 mls/hr Q10H IV Last administered on 02/13/17 06 :36; Start 02/12/17 at 19:00; Stop 02/13/17 at 10:51; Status DC Famotidine (Pepcid) 20 mg 1X ONCE PO Last administered on 02/12/17 19:57; Start 02/12/17 at 17:30; Stop 02/12/17 at 17:34; Status DC Methylprednisolone Sodium Succinate (SOLU-Medrol 40MG VIAL) 100 mg TID IV Last administered on 02/14/17 11:01; Start 02/12/17 at 18:00; Stop 02/14/17 at 12:00; Status DC Sodium Chloride 1,000 ml @ 1,000 mls/hr 1X ONCE IV Last administered on 19:31; Start 02/12/17 at 18:15; Stop 02/12/17 at 19:14; Status DC Piperacillin Sod/ Tazobactam Sod (Zosyn Per Pharmacy) 1 each PRN DAILY PRN MC SEE COMMENTS; Start 02/12/17 at 19:15; Stop 02/18/17 at 07:22; Status DC Vancomycin HCl (Vanco Per Pharmacy) 1 each PRN DAILY PRN MC SEE COMMENTS Last administered on 02/13/17 16:50; Start 02/12/17 at 19:15; Stop 02/14/17 at 07:57; Status DC Piperacillin Sod/ Tazobactam Sod 3.375 gm/Sodium Chloride 50 ml @ 100 mls/hr Q6HRS IV Last administered on 02/15/17 05:58; Start 02/12/17 at 19:30; Stop 02/15 at 09:37; Status DC Vancomycin HCl 1 gm/Sodium Chloride 250 ml @ 250 mls/hr 1X ONCE IV Last administered on 02/12/17 20:00; Start 02/12/17 at 19:30; Stop 02/12/17 at 20:29; Status DC Sodium Bicarbonate 50 meq 1X ONCE IV Last administered on 02/12/17 19:59; Start 02/12/17 at 19:30; Stop 02/12/17 at 19:31; Status DC Norepinephrine Bitartrate 250 ml @ 0 mls/hr CONT PRN IV SEE I/O RECORD Last administered on 02/16/17 07:18; Start 02/12/17 at 19:30; Stop 02/20/17 at 10:36 ; Status DC Norepinephrine Bitartrate 250 ml @ As Directed STK-MED ONCE IV ; Start 02/12/17 at 19:25; Stop 02/12/17 at 19:26; Status DC Vancomycin HCl 750 mg/Sodium Chloride 250 ml @ 250 mls/hr Q24H IV Last administered on 02/13/17 20:34; Start 02/13/17 at 20:00; Stop 02/14/17 at 07:57; Status DC Vancomycin HCl 1 each 1X ONCE MC ; Start 02/14/17 at 19:30; Stop 02/14/17 at 19: 31; Status Cancel Sodium Chloride 1,000 ml @ 1,000 mls/hr 1X ONCE IV Last administered on 05:05; Start 02/13/17 at 04:45; Stop 02/13/17 at 05:44; Status DC Sodium Chloride 1,000 ml @ 1,000 mls/hr 1X ONCE IV Last administered on 05:35; Start 02/13/17 at 05:30; Stop 02/13/17 at 06:29; Status DC Magnesium Sulfate/ Dextrose 50 ml @ 25 mls/hr PRN DAILY PRN IV for Mag < 1.7 on am labs; Start 02/13/17 at 10:45 Dextrose/Sodium Chloride 1,000 ml @ 75 mls/hr [id number] IV Last administered on 02/15/17 01:52; Start 02/13/17 at 11:00; Stop 02/15/17 at 08:52; Status DC Vecuronium [place] (Norcuron Bolus) 5 mg PRN Q30MIN PRN IV SHIVERING; Start 02/13/17 at 11:15 Lidocaine/Sodium Bicarbonate (Buffered Lidocaine 1%) 3 ml 1X ONCE IJ Last administered on 02/13/17 11:40; Start 02/13/17 at 11:15; Stop 02/13/17 at 11:26; Status DC Heparin Sodium/ Sodium Chloride 60 unit 1X ONCE IV Last administered on 11:40; Start 02/13/17 at 11:15; Stop 02/13/17 at 11:26; Status DC Lidocaine/Sodium Bicarbonate (Buffered Lidocaine 1%) 20 ml STK-MED ONCE IJ ; Start 02/13/17 at 11:22; Stop 02/13/17 at 11:29; Status DC Heparin Sodium (Porcine) (Heparin Sodium) 2,075 unit 1X ONCE IV Last administered on 02/13/17 12:45; Start 02/13/17 at 11:45; Stop 02/13/17 at 11:56; Status DC Heparin Sodium/ Dextrose 500 ml @ 16.5 mls/hr CONT PRN IV SEE I/O RECORD Last administered on 02/13/17 12:47; Start 02/13/17 at 11:45; Stop 02/14/17 at 13:53; Status DC Heparin Sodium (Porcine) (Heparin Sodium) 1,550 unit PRN Q6HRS PRN IV FOR UFH LEVEL LESS THAN 0.2 Last administered on 02/13/17 20:22; Start 02/13/17 at 11:45 ; Stop 02/14/17 at 13:53; Status DC Heparin Sodium (Porcine) (Heparin Sodium) 800 unit PRN Q6HRS PRN IV FOR UFH LEVEL 0.2 - 0.29 Last administered on 02/14/17 02:34; Start 02/13/17 at 11:45; Stop 02/14/17 at 13:53; Status DC Warfarin Sodium (Coumadin Per Pharmacy) 1 each PRN DAILY PRN MC PER PROTOCOL; Start 02/13/17 at 11:45; Status Cancel Info (Anti-Coagulation Monitoring By Pharmacy) 1 each PRN DAILY PRN MC SEE COMMENTS; Start 02/13/17 at 13:00; Stop 02/14/17 at 16:28; Status DC Calcium Chloride 1,000 mg STK-MED ONCE IV ; Start 02/12/17 at 10:00; Stop at 16:27; Status DC Epinephrine HCl (EPINEPHrine SYRINGE) 1 mg STK-MED ONCE .ROUTE ; Start 02/12/17 at 10:00; Stop 02/13/17 at 16:27; Status DC Dextrose (Dextrose 50%-Water Syringe) 25 gm STK-MED ONCE IV ; Start 02/12/17 at 10:00; Stop 02/13/17 at 16:27; Status DC Sodium Bicarbonate 50 meq STK-MED ONCE .ROUTE ; Start 02/12/17 at 10:00; Stop 02/13/17 at 16:27; Status DC Methylprednisolone Sodium Succinate (SOLU-Medrol 125MG VIAL) 100 mg TID IV Last administered on 02/24/17 08:13; Start 02/14/17 at 18:00 Norepinephrine Bitartrate 250 ml @ 0 mls/hr CONT PRN IV SEE I/O RECORD; Start 02/14/17 at 15:30; Status Cancel Famotidine (Pepcid) 20 mg DAILY IVP Last administered on 02/24/17 08:13; Start 02/15/17 at 09:00 Amino Acids/ Glycerin/ Electrolytes 1,000 ml @ 80 mls/hr [id number] IV Last administered on 02/15/17 09:32; Start 02/15/17 at 08:45; Stop 02/15/17 at 15:14; Status DC Albumin Human 100 ml @ 100 mls/hr 1X ONCE IV Last administered on 02/15/17 09 :30; Start 02/15/17 at 08:45; Stop 02/15/17 at 09:44; Status DC Furosemide (Lasix) 40 mg 1X ONCE IVP ; Start 02/15/17 at 08:45; Stop 02/15/17 at 09:18; Status DC Piperacillin Sod/ Tazobactam Sod 2.25 gm/Sodium Chloride 50 ml @ 100 mls/hr Q6HRS IV Last administered on 02/16/17 05:52; Start 02/15/17 at 12:00; Stop 03/25 at 09:17; Status DC Daptomycin 340 mg/ Sodium Chloride 50 ml @ 100 mls/hr ONCE ONCE IV Last administered on 02/15/17 11:15; Start 02/15/17 at 11:15; Stop 02/15/17 at 11:44; Status DC Dextrose/Sodium Chloride 1,000 ml @ 40 mls/hr Q24H IV Last administered on 22:55; Start 02/15/17 at 15:15 Lidocaine/Sodium Bicarbonate (Buffered Lidocaine 1%) 3 ml 1X ONCE IJ Last administered on 02/15/17 16:00; Start 02/15/17 at 15:45; Stop 02/15/17 at 15:46; Status DC Heparin Sodium/ Sodium Chloride 6,000 unit 1X ONCE IV ; Start 02/15/17 at 15:45 ; Stop 02/15/17 at 15:46; Status DC Sodium Chloride 1,000 ml @ 1,000 mls/hr Q1H PRN IV hypotension; Start 02/16/17 at 06:38; Stop 02/16/17 at 12:37; Status DC Info (PHARMACY MONITORING -- do not chart) 1 each PRN DAILY PRN MC SEE COMMENTS ; Start 02/16/17 at 06:45; Stop 02/22/17 at 07:49; Status DC Info (PHARMACY MONITORING -- do not chart) 1 each PRN DAILY PRN MC SEE COMMENTS ; Start 02/16/17 at 06:45; Stop 02/16/17 at 09:19; Status DC Info (PHARMACY MONITORING -- do not chart) 1 each PRN DAILY PRN MC SEE COMMENTS ; Start 02/16/17 at 06:45; Stop 02/16/17 at 09:19; Status DC Albumin Human 100 ml @ 100 mls/hr 1X ONCE IV Last administered on 02/16/17 07:18; Start 02/16/17 at 07:00; Stop 02/16/17 at 07:59; Status DC Piperacillin Sod/ Tazobactam Sod 2.25 gm/Sodium Chloride 50 ml @ 100 mls/hr Q8HRS IV Last administered on 02/18/17 05:55; Start 02/16/17 at 14:00; Stop at 07:22; Status DC Daptomycin 340 mg/ Sodium Chloride 50 ml @ 100 mls/hr QODAY IV Last administered on 02/17/17 12:22; Start 02/17/17 at 09:00; Stop 02/18/17 at 07:22 ; Status DC Sodium Chloride 1,000 ml @ 1,000 mls/hr Q1H PRN IV hypotension; Start 02/17/17 at 08:30; Stop 02/17/17 at 16:00; Status DC Albumin Human 200 ml @ 200 mls/hr 1X PRN PRN IV Hypotension; Start 02/17/17 at 08:30; Stop 02/17/17 at 16:00; Status DC Sodium Chloride 1,000 ml @ 400 mls/hr Q2H30M PRN IV PATENCY; Start 02/17/17 at 08:30; Stop 02/17/17 at 16:00; Status DC Info (PHARMACY MONITORING -- do not chart) 1 each PRN DAILY PRN MC SEE COMMENTS ; Start 02/17/17 at 08:30; Status UNV Info (PHARMACY MONITORING -- do not chart) 1 each PRN DAILY PRN MC SEE COMMENTS ; Start 02/17/17 at 08:30; Status UNV Heparin Sodium (Porcine) (Heparin Sq) 5,000 unit Q8HRS SQ Last administered on 02/22/17 05:49; Start 02/17/17 at 14:00; Stop 02/22/17 at 14:24; Status DC Bisacodyl (Dulcolax Supp) 10 mg PRN DAILY PRN [place] CONSTIPATION; Start 02/17/17 at 15:00 Polyethylene Glycol (miraLAX PACKET) 17 gm PRN DAILY PRN FT CONSTIPATION; Start 02/17/17 at 15:00 Levetiracetam 500 mg/Sodium Chloride 100 ml @ 400 mls/hr Q12HR IV Last administered on 02/24/17 08:13; Start 02/17/17 at 21:00 Vancomycin HCl (Vanco Per Pharmacy) 1 each PRN DAILY PRN MC SEE COMMENTS Last administered on 02/23/17 11:11; Start 02/18/17 at 07:30 Vancomycin HCl 1.5 gm/Sodium Chloride 500 ml @ 250 mls/hr 1X ONCE IV Last administered on 02/18/17 14:43; Start 02/18/17 at 14:30; Stop 02/18/17 at 16:29 ; Status DC Vancomycin HCl 1 each 1X ONCE MC Last administered on 02/20/17 05:00; Start 02/20/17 at 05:00; Stop 02/20/17 at 05:01; Status DC Sodium Chloride 1,000 ml @ 1,000 mls/hr Q1H PRN IV hypotension; Start 02/19/17 at 09:08; Stop 02/19/17 at 15:07; Status DC Albumin Human 200 ml @ 200 mls/hr 1X PRN PRN IV Hypotension; Start 02/19/17 at 09:15; Stop 02/19/17 at 15:14; Status DC Sodium Chloride 1,000 ml @ 400 mls/hr Q2H30M PRN IV PATENCY; Start 02/19/17 at 09:08; Stop 02/19/17 at 21:07; Status DC Info (PHARMACY MONITORING -- do not chart) 1 each PRN DAILY PRN MC SEE COMMENTS ; Start 02/19/17 at 09:15; Stop 02/19/17 at 09:17; Status DC Info (PHARMACY MONITORING -- do not chart) 1 each PRN DAILY PRN MC SEE COMMENTS ; Start 02/19/17 at 09:15; Stop 02/20/17 at 12:35; Status DC Vancomycin HCl 500 mg/Sodium Chloride 100 ml @ 100 mls/hr QMWF IV Last administered on 02/21/17 16:17; Start 02/21/17 at 16:00 Sodium Chloride 1,000 ml @ 1,000 mls/hr Q1H PRN IV hypotension; Start 02/21/17 at 08:14; Stop 02/21/17 at 14:13; Status DC Diphenhydramine HCl (Benadryl) 25 mg 1X PRN PRN IV ITCHING; Start 02/21/17 at 08:15; Stop 02/22/17 at 08:14; Status DC Diphenhydramine HCl (Benadryl) 25 mg 1X PRN PRN IV ITCHING; Start 02/21/17 at 08:15; Stop 02/22/17 at 08:14; Status DC Sodium Chloride (Normal Saline Flush) 10 ml 1X PRN PRN IV AP catheter pack; Start 02/21/17 at 08:15; Stop 02/22/17 at 08:14; Status DC Sodium Chloride (Normal Saline Flush) 10 ml 1X PRN PRN IV BOBBIN INSPECTOR catheter pack; Start 02/21/17 at 08:15; Stop 02/22/17 at 08:14; Status DC Sodium Chloride 1,000 ml @ 400 mls/hr Q2H30M PRN IV PATENCY; Start 02/21/17 at 08:14; Stop 02/21/17 at 20:13; Status DC Info (PHARMACY MONITORING -- do not chart) 1 each PRN DAILY PRN MC SEE COMMENTS ; Start 02/21/17 at 08:15; Stop 02/24/17 at 08:29; Status DC Sodium Chloride 1,000 ml @ 1,000 mls/hr Q1H PRN IV hypotension; Start 02/24/17 at 08:19; Stop 02/24/17 at 14:18 Albumin Human 200 ml @ 200 mls/hr 1X PRN PRN IV Hypotension; Start 02/24/17 at 08:30; Stop 02/24/17 at 14:29 Acetaminophen (Tylenol) 500 mg 1X PRN PRN PO MILD PAIN / TEMP; Start 02/24/17 at 08:30; Stop 02/25/17 at 08:29 Diphenhydramine HCl (Benadryl) 25 mg 1X PRN PRN IV ITCHING; Start 02/24/17 at 08:30; Stop 02/25/17 at 08:29 Diphenhydramine HCl (Benadryl) 25 mg 1X PRN PRN IV ITCHING; Start 02/24/17 at 08:30; Stop 02/25/17 at 08:29 Labetalol HCl (Normodyne) 10 mg PRN Q1HR PRN IVP SBP > 180; Start 02/24/17 at 08:30; Stop 02/25/17 at 08:29 Info (PHARMACY MONITORING -- do not chart) 1 each PRN DAILY PRN MC SEE COMMENTS ; Start 02/24/17 at 08:30 Albumin Human 200 ml @ 100 mls/hr 1X ONCE IV Last administered on 02/24/17t 09:51; Start 02/24/17 at 09:45; Stop 02/24/17 at 11:44 Active Scripts Active Reported Latuda (Lurasidone Hcl) 20 Mg Tablet 20 Mg PO AFTRNOON Remeron (Mirtazapine) 15 Mg Tablet 1 Tab PO QHS Oxybutynin Chloride Er (Oxybutynin Chloride) 10 Mg Tab.er.24 1 Tab PO DAILY Multivitamins (Multivitamin) 1 Each Tablet 1 Tab PO DAILY Latuda (Lurasidone Hcl) 20 Mg Tablet 10 Mg PO AFTRNOON Lorazepam 0.5 Mg Tablet 1 Tab PO QEVNG Duoneb 0.5-3(2.5) Mg/3 Ml (Albuterol/Ipratropium) 3 Ml Ampul.neb 3 Ml NEB BID Duoneb 0.5-3(2.5) Mg/3 Ml (Albuterol/Ipratropium) 3 Ml Ampul.neb 3 Ml NEB Q4H PRN Calcium Carbonate 500 Mg Tablet 1,000 Mg PO Q4HRS PRN Nicotine Gum (Nicotine Polacrilex) 4 Mg Gum 4 Mg BC Milk Of Magnesia (Magnesium Hydroxide) 400 Mg/5 Ml Oral.susp 400 Mg PO Q3DAYS PRN Milk Of Magnesia (Magnesium Hydroxide) 400 Mg/5 Ml Oral.susp 400 Mg PO Q3DAYS PRN Lorazepam 1 Mg Tablet 1 Tab PO Q12HR PRN Ibuprofen 400 Mg Tablet 200 Mg PO Q8HRS PRN Cough Drops (Eucalyptus Oil/Menthol) 7 Mg Lozenge 7 Mg MM Q4HRS PRN Tylenol (Acetaminophen) 325 Mg Tablet 650 Mg PO Q4HRS PRN Lovaza ([place]-3 Acid Ethyl Esters) 1 Gm Capsule 1 Cap PO QID Gabapentin 400 Mg Capsule 400 Mg PO QID Lorazepam 1 Mg Tablet 1 Tab PO BID Latuda (Lurasidone Hcl) 60 Mg Tablet 60 Mg PO BID Advair 100-50 Diskus (Fluticasone/Salmeterol) 1 Each Disk.w.dev 1 Puff IH BID Acetaminophen 325 Mg Capsule 650 Mg PO BID Vitamin D (Cholecalciferol (Vitamin D3)) 2,000 Unit Capsule 800 Unit PO DAILY Vitals/I & O Vital Sign - Last 24 Hours 02/23/17 02/23/17 02/23/17 02/23/17 11:00 11:36 12:00 12:00 Temp 98.5 98.5 Pulse 103 105 Resp 28 28 B/P (MAP) 163/85 (111) 156/80 (105) Pulse Ox 100 99 99 O2 Delivery Ventilator Ventilator Mechanical Ventilator Ventilator 02/23/17 02/23/17 02/23/17 02/23/17 13:03 13:40 14:00 15:00 Pulse 103 101 101 Resp 28 28 28 B/P (MAP) 159/84 (109) 148/81 (103) 161/81 (107) Pulse Ox 99 99 99 99 O2 Delivery Ventilator Ventilator Ventilator Ventilator 02/23/17 02/23/17 02/23/17 02/23/17 15:17 15:51 16:00 17:00 Temp 98.5 98.5 Pulse 98 98 Resp 27 B/P (MAP) 145/78 (100) 150/88 (108) Pulse Ox 100 99 99 O2 Delivery Ventilator Mechanical Ventilator Ventilator Ventilator 02/23/17 02/23/17 02/23/17 02/23/17 17:47 18:00 19:00 19:35 Pulse 101 98 Resp 26 B/P (MAP) 161/82 (108) 152/74 (100) Pulse Ox 99 99 99 99 O2 Delivery Ventilator Ventilator Ventilator Ventilator 02/23/17 02/23/17 02/23/17 02/23/17 20:00 20:00 21:00 22:00 Temp 96.9 96.9 Pulse 96 92 91 Resp 23 25 23 B/P (MAP) 151/77 (101) 135/79 (97) 151/85 (107) Pulse Ox 100 99 98 O2 Delivery Ventilator Mechanical Ventilator Ventilator Ventilator 02/23/17 02/23/17 02/23/17 02/24/17 22:37 23:00 23:59 00:00 Temp 98.0 98.0 Pulse 92 93 Resp 24 24 B/P (MAP) 151/83 (105) 155/86 (109) Pulse Ox 100 100 100 O2 Delivery Ventilator Ventilator Mechanical Ventilator Ventilator 02/24/17 02/24/17 02/24/17 02/24/17 00:33 01:00 02:00 02:32 Pulse 97 102 Resp 23 26 B/P (MAP) 162/80 (107) 141/85 (103) Pulse Ox 100 99 99 99 O2 Delivery Ventilator Ventilator Ventilator Ventilator 02/24/17 02/24/17 02/24/17/18/17 03:00 04:00 04:00 05:00 Temp 98.0 98.0 Pulse 102 106 98 Resp 27 29 26 B/P (MAP) 153/85 (107) 145/88 (107) 150/82 (104) Pulse Ox 99 100 100 O2 Delivery Ventilator Mechanical Ventilator Ventilator Ventilator 02/24/17 02/24/17 02/24/17 02/24/17 05:13 06:00 07:05 07:50 Pulse 105 98 Resp 28 25 B/P (MAP) 173/86 (115) 141/64 (89) Pulse Ox 100 99 100 O2 Delivery Ventilator Ventilator Ventilator Mechanical Ventilator 02/24/17 02/24/17 02/24/17 02/24/17 08:14 08:37 09:00 09:18 Temp 98.1 98.1 Pulse 98 119 Resp 24 25 B/P (MAP) 154/84 (107) 117/64 (81) Pulse Ox 99 99 99 100 O2 Delivery Ventilator Ventilator Ventilator Ventilator 02/24/17 10:03 Pulse 128 Resp 30 B/P (MAP) 137/104 (115) Pulse Ox 100 O2 Delivery Ventilator Intake and Output 02/24/17 02/24/17 02/25/17 15:00 23:00 07:00 Intake Total 0 ml Balance 0 ml SIVA GARCIA MD Feb 24, 2017 10:14
--- NOTE | 2017-02-24 11:24 | PDOC ---
PROGRESS NOTES Chief Complaint Chief Complaint cardiac arrest, asystole, unknown down time, s/p hypothermia Anoxic encephalopathy, off sedation, no response Normal corrected calcium Oliguric renal OLIGURIC RENAL FAILURE [facility] resident HX schiz by documentation Sepsis with organ failure, needing pressor Thrombocytopenia ANemia, normocytic Hyponatremia Acute precipitous drop hgb History of Present Illness History of Present Illness Pt nonresponsive on vent. Ethics committee consulted on case. Awaiting court results re: allow natural Vent: AC/16/420/35%/ O2 Sat 99%, PEEP5 Labs: BUN - 160 Creatinine - 5.7 WBC - 55.2 Hgb - 7.3 Hct - 21.6 Consults: Pulmonary, GI, ID Vitals Vitals Vital Signs Date Time Temp Pulse Resp B/P (MAP) Pulse Ox O2 Delivery O2 Flow Rate FiO2 02/24/17 11:02 120 32 109/78 (88) 100 Ventilator 02/24/17 08:14 98.1 98.1 Physical Exam General: Other (On vent, nonresponsive) Heart: Regular rate, Gallops, Other (distant S1/S2) Lungs: Crackles Abdomen: Normal bowel sounds, Soft, No tenderness, No hepatosplenomegaly, No masses Extremities: No clubbing, No cyanosis, No edema, Normal pulses, No tenderness/ swelling Skin: No breakdown, No significant lesion Labs LABS Laboratory Tests Test 02/24/17 06:00 White Blood Count 50.5 x10^3/uL (4.0-11.0) Red Blood Count 2.00 x10^6/uL (3.50-5.40) Hemoglobin 6.2 g/dL (12.0-15.5) Hematocrit 19.0 % (36.0-47.0) Mean Corpuscular Volume 95 fL (79-100) Mean Corpuscular Hemoglobin 31 pg (25-35) Mean Corpuscular Hemoglobin Concent 33 g/dL (31-37) Red Cell Distribution Width 15.4 % (11.5-14.5) Platelet Count 192 x10^3/uL (140-400) Neutrophils (%) (Auto) 95 % (31-73) Lymphocytes (%) (Auto) 2 % (24-48) Monocytes (%) (Auto) 2 % (0-9) Eosinophils (%) (Auto) 0 % (0-3) Basophils (%) (Auto) 1 % (0-3) Neutrophils # (Auto) 48.0 x10^3uL (1.8-7.7) Lymphocytes # (Auto) 1.0 x10^3/uL (1.0-4.8) Monocytes # (Auto) 1.1 x10^3/uL (0.0-1.1) Eosinophils # (Auto) 0.0 x10^3/uL (0.0-0.7) Basophils # (Auto) 0.3 x10^3/uL (0.0-0.2) Sodium Level 132 mmol/L (136-145) Potassium Level 5.2 mmol/L (3.5-5.1) Chloride Level 96 mmol/L (98-107) Carbon Dioxide Level 23 mmol/L (21-32) Anion Gap 13 (6-14) Blood Urea Nitrogen 160 mg/dL (7-20) Creatinine 5.7 mg/dL (0.6-1.0) Estimated GFR (Cockcroft-Gault) 9.4 Glucose Level 183 mg/dL (70-99) Calcium Level 8.0 mg/dL (8.5-10.1) Review of Systems Review of Systems Unattainable due to severity of condition Assessment and Plan Assessmemt and Plan Problems Medical Problems: (1) Cardiac arrest Status: Acute (2) Elevated troponin Status: Acute (3) Hyperkalemia Status: Acute (4) Hypoglycemia Status: Acute (5) Hyponatremia Status: Acute cardiac arrest, asystole, unknown down time, s/p hypothermia Anoxic encephalopathy, off sedation, no response Normal corrected calcium Oliguric renal OLIGURIC RENAL FAILURE SNU resident HX schiz by documentation Sepsis with organ failure, needing pressor Thrombocytopenia ANemia, normocytic Hyponatremia Acute precipitous drop hgb Plan In ICU cont. on dialysis cont. ICU monitoring Recheck labs cont. Abx Cont. mechanical ventilation Prognosis - Guarded Problems: Comment Review of Relevant I have reviewed the following items reji (where applicable) has been applied. Labs Laboratory Tests Test 02/22/17 14:38 02/22/17 16:37 02/22/17 16:40 02/23/17 05:40 Clostridium difficile Toxin (PCR) Negative (Negative) Glucose (Fingerstick) 160 mg/dL (70-99) Fibrinogen 273 mg/dL (200-440) White Blood Count 55.2 x10^3/uL (4.0-11.0) Red Blood Count 2.39 x10^6/uL (3.50-5.40) Hemoglobin 7.3 g/dL (12.0-15.5) Hematocrit 21.6 % (36.0-47.0) Mean Corpuscular Volume 90 fL (79-100) Mean Corpuscular Hemoglobin 31 pg (25-35) Mean Corpuscular Hemoglobin Concent 34 g/dL (31-37) Red Cell Distribution Width 15.4 % (11.5-14.5) Platelet Count 197 x10^3/uL (140-400) Neutrophils (%) (Auto) 91 % (31-73) Lymphocytes (%) (Auto) 4 % (24-48) Monocytes (%) (Auto) 5 % (0-9) Eosinophils (%) (Auto) 0 % (0-3) Basophils (%) (Auto) 0 % (0-3) Neutrophils # (Auto) 50.2 x10^3uL (1.8-7.7) Lymphocytes # (Auto) 1.9 x10^3/uL (1.0-4.8) Monocytes # (Auto) 2.9 x10^3/uL (0.0-1.1) Eosinophils # (Auto) 0.0 x10^3/uL (0.0-0.7) Basophils # (Auto) 0.1 x10^3/uL (0.0-0.2) Sodium Level 134 mmol/L (136-145) Potassium Level 4.8 mmol/L (3.5-5.1) Chloride Level 97 mmol/L (98-107) Carbon Dioxide Level 23 mmol/L (21-32) Anion Gap 14 (6-14) Blood Urea Nitrogen 125 mg/dL (7-20) Creatinine 4.8 mg/dL (0.6-1.0) Estimated GFR (Cockcroft-Gault) 11.4 Glucose Level 177 mg/dL (70-99) Calcium Level 7.8 mg/dL (8.5-10.1) Test 02/24/17 06:00 White Blood Count 50.5 x10^3/uL (4.0-11.0) Red Blood Count 2.00 x10^6/uL (3.50-5.40) Hemoglobin 6.2 g/dL (12.0-15.5) Hematocrit 19.0 % (36.0-47.0) Mean Corpuscular Volume 95 fL (79-100) Mean Corpuscular Hemoglobin 31 pg (25-35) Mean Corpuscular Hemoglobin Concent 33 g/dL (31-37) Red Cell Distribution Width 15.4 % (11.5-14.5) Platelet Count 192 x10^3/uL (140-400) Neutrophils (%) (Auto) 95 % (31-73) Lymphocytes (%) (Auto) 2 % (24-48) Monocytes (%) (Auto) 2 % (0-9) Eosinophils (%) (Auto) 0 % (0-3) Basophils (%) (Auto) 1 % (0-3) Neutrophils # (Auto) 48.0 x10^3uL (1.8-7.7) Lymphocytes # (Auto) 1.0 x10^3/uL (1.0-4.8) Monocytes # (Auto) 1.1 x10^3/uL (0.0-1.1) Eosinophils # (Auto) 0.0 x10^3/uL (0.0-0.7) Basophils # (Auto) 0.3 x10^3/uL (0.0-0.2) Sodium Level 132 mmol/L (136-145) Potassium Level 5.2 mmol/L (3.5-5.1) Chloride Level 96 mmol/L (98-107) Carbon Dioxide Level 23 mmol/L (21-32) Anion Gap 13 (6-14) Blood Urea Nitrogen 160 mg/dL (7-20) Creatinine 5.7 mg/dL (0.6-1.0) Estimated GFR (Cockcroft-Gault) 9.4 Glucose Level 183 mg/dL (70-99) Calcium Level 8.0 mg/dL (8.5-10.1) Laboratory Tests Test 02/24/17 06:00 White Blood Count 50.5 x10^3/uL (4.0-11.0) Red Blood Count 2.00 x10^6/uL (3.50-5.40) Hemoglobin 6.2 g/dL (12.0-15.5) Hematocrit 19.0 % (36.0-47.0) Mean Corpuscular Volume 95 fL (79-100) Mean Corpuscular Hemoglobin 31 pg (25-35) Mean Corpuscular Hemoglobin Concent 33 g/dL (31-37) Red Cell Distribution Width 15.4 % (11.5-14.5) Platelet Count 192 x10^3/uL (140-400) Neutrophils (%) (Auto) 95 % (31-73) Lymphocytes (%) (Auto) 2 % (24-48) Monocytes (%) (Auto) 2 % (0-9) Eosinophils (%) (Auto) 0 % (0-3) Basophils (%) (Auto) 1 % (0-3) Neutrophils # (Auto) 48.0 x10^3uL (1.8-7.7) Lymphocytes # (Auto) 1.0 x10^3/uL (1.0-4.8) Monocytes # (Auto) 1.1 x10^3/uL (0.0-1.1) Eosinophils # (Auto) 0.0 x10^3/uL (0.0-0.7) Basophils # (Auto) 0.3 x10^3/uL (0.0-0.2) Sodium Level 132 mmol/L (136-145) Potassium Level 5.2 mmol/L (3.5-5.1) Chloride Level 96 mmol/L (98-107) Carbon Dioxide Level 23 mmol/L (21-32) Anion Gap 13 (6-14) Blood Urea Nitrogen 160 mg/dL (7-20) Creatinine 5.7 mg/dL (0.6-1.0) Estimated GFR (Cockcroft-Gault) 9.4 Glucose Level 183 mg/dL (70-99) Calcium Level 8.0 mg/dL (8.5-10.1) Microbiology 02/15/17 Blood Culture - Final, Complete NO GROWTH AFTER 5 DAYS 02/12/17 Urine Culture - Final, Complete 02/12/17 Urine Culture Result 1 (ELIZABETH) - Final, Complete Medications Current Medications Calcium Chloride 1,000 mg 1X ONCE IV Last administered on 02/12/17t 15:35; Start 02/12/17 at 16:00; Stop 02/12/17 at 16:35; Status DC Dextrose (Dextrose 50%-Water Syringe) 25 gm 1X ONCE IV Last administered on 15:33; Start 02/12/17 at 16:00; Stop 02/12/17 at 16:35; Status DC Sodium Bicarbonate 50 meq 1X ONCE IV Last administered on 02/12/17 15:35; Start 02/12/17 at 16:00; Stop 02/12/17 at 16:35; Status DC Furosemide (Lasix) 40 mg 1X ONCE IVP Last administered on 02/12/17 16:42; Start 02/12/17 at 16:30; Stop 02/12/17 at 16:35; Status DC Sodium Chloride 1,000 ml @ 1,000 mls/hr Q1H IV Last administered on 02/12/17 15:50; Start 02/12/17 at 16:57; Stop 02/13/17 at 07:23; Status DC Fentanyl Citrate (Fentanyl 2ml Vial) 25 mcg PRN Q30MIN PRN IV SED; Start at 17:00 Lorazepam (Ativan) 1 mg PRN Q30MIN PRN IV SEDATION; Start 02/12/17 at 17:00 Fentanyl Citrate 30 ml @ 2.5 mls/hr CONT PRN PRN IV IVF Last administered on 03:27; Start 02/12/17 at 17:00; Stop 02/20/17 at 10:36; Status DC Propofol 100 ml @ 0 mls/hr CONT PRN IV SEE I/O RECORD; Start 02/12/17 at 17:00; Stop 02/20/17 at 10:36; Status DC Vecuronium [place] (Norcuron Bolus) DOSE AT 0.1 mg/kg PRN Q30MIN PRN IV SHIVERING Last administered on 02/12/17 19:46; Start 02/12/17 at 17:00; Stop 02/13 at 11:01; Status DC Meperidine HCl (Demerol) 12.5 mg PRN Q30MIN PRN IV SHIVERING; Start 02/12/17 at 17:00 Multi-Ingred Cream/Lotion/Oil/ Oint (Artificial Tears Eye Oint) 1 silvestre PRN Q6HRS PRN OU 0.5 INCH FOR DRY EYE Last administered on 02/23/17 07:34; Start at 17:00 Famotidine (Pepcid) 20 mg BID IVP Last administered on 02/14/17 10:47; Start at 09:00; Stop 02/14/17 at 16:23; Status DC Aspirin (Aspirin) 300 mg DAILY WI Last administered on 02/24/17 08:13; Start 02/13/17 at 09:00 Sodium Chloride (Normal Saline Flush) 3 ml QSHIFT PRN IV AFTER MEDS AND BLOOD DRAWS; Start 02/12/17 at 17:00 Acetaminophen (Tylenol) 650 mg Q6HRS NG Last administered on 02/13/17 05:51; Start 02/12/17 at 18:00; Stop 02/13/17 at 17:59; Status DC Acetaminophen (Acetaminophen Supp) 650 mg PRN Q6HRS PRN WI MILD PAIN / TEMP; Start 02/13/17 at 17:00 Acetaminophen (Tylenol) 650 mg PRN Q6HRS PRN NG MILD PAIN / TEMP Last administered on 02/23/17 13:02; Start 02/13/17 at 17:00 Info 1 ea DAILY PRN MC PER PROTOCOL; Start 02/14/17 at 17:00 Sodium Chloride 500 ml @ 500 mls/hr 1X ONCE IV Last administered on 02/12/17 16:30; Start 02/12/17 at 17:15; Stop 02/12/17 at 18:14; Status DC Sodium Chloride 500 ml @ 500 mls/hr 1X ONCE IV Last administered on 02/12/17 16:50; Start 02/12/17 at 17:15; Stop 02/12/17 at 18:14; Status DC Sodium Chloride 1,000 ml @ 100 mls/hr Q10H IV Last administered on 02/13/17 06 :36; Start 02/12/17 at 19:00; Stop 02/13/17 at 10:51; Status DC Famotidine (Pepcid) 20 mg 1X ONCE PO Last administered on 02/12/17 19:57; Start 02/12/17 at 17:30; Stop 02/12/17 at 17:34; Status DC Methylprednisolone Sodium Succinate (SOLU-Medrol 40MG VIAL) 100 mg TID IV Last administered on 02/14/17 11:01; Start 02/12/17 at 18:00; Stop 02/14/17 at 12:00; Status DC Sodium Chloride 1,000 ml @ 1,000 mls/hr 1X ONCE IV Last administered on 19:31; Start 02/12/17 at 18:15; Stop 02/12/17 at 19:14; Status DC Piperacillin Sod/ Tazobactam Sod (Zosyn Per Pharmacy) 1 each PRN DAILY PRN MC SEE COMMENTS; Start 02/12/17 at 19:15; Stop 02/18/17 at 07:22; Status DC Vancomycin HCl (Vanco Per Pharmacy) 1 each PRN DAILY PRN MC SEE COMMENTS Last administered on 02/13/17 16:50; Start 02/12/17 at 19:15; Stop 02/14/17 at 07:57; Status DC Piperacillin Sod/ Tazobactam Sod 3.375 gm/Sodium Chloride 50 ml @ 100 mls/hr Q6HRS IV Last administered on 02/15/17 05:58; Start 02/12/17 at 19:30; Stop 02/15 at 09:37; Status DC Vancomycin HCl 1 gm/Sodium Chloride 250 ml @ 250 mls/hr 1X ONCE IV Last administered on 02/12/17 20:00; Start 02/12/17 at 19:30; Stop 02/12/17 at 20:29; Status DC Sodium Bicarbonate 50 meq 1X ONCE IV Last administered on 02/12/17 19:59; Start 02/12/17 at 19:30; Stop 02/12/17 at 19:31; Status DC Norepinephrine Bitartrate 250 ml @ 0 mls/hr CONT PRN IV SEE I/O RECORD Last administered on 02/16/17 07:18; Start 02/12/17 at 19:30; Stop 02/20/17 at 10:36 ; Status DC Norepinephrine Bitartrate 250 ml @ As Directed STK-MED ONCE IV ; Start 02/12/17 at 19:25; Stop 02/12/17 at 19:26; Status DC Vancomycin HCl 750 mg/Sodium Chloride 250 ml @ 250 mls/hr Q24H IV Last administered on 02/13/17 20:34; Start 02/13/17 at 20:00; Stop 02/14/17 at 07:57; Status DC Vancomycin HCl 1 each 1X ONCE MC ; Start 02/14/17 at 19:30; Stop 02/14/17 at 19: 31; Status Cancel Sodium Chloride 1,000 ml @ 1,000 mls/hr 1X ONCE IV Last administered on 05:05; Start 02/13/17 at 04:45; Stop 02/13/17 at 05:44; Status DC Sodium Chloride 1,000 ml @ 1,000 mls/hr 1X ONCE IV Last administered on 05:35; Start 02/13/17 at 05:30; Stop 02/13/17 at 06:29; Status DC Magnesium Sulfate/ Dextrose 50 ml @ 25 mls/hr PRN DAILY PRN IV for Mag < 1.7 on am labs; Start 02/13/17 at 10:45 Dextrose/Sodium Chloride 1,000 ml @ 75 mls/hr [id number] IV Last administered on 02/15/17 01:52; Start 02/13/17 at 11:00; Stop 02/15/17 at 08:52; Status DC Vecuronium [place] (Norcuron Bolus) 5 mg PRN Q30MIN PRN IV SHIVERING; Start 02/13/17 at 11:15 Lidocaine/Sodium Bicarbonate (Buffered Lidocaine 1%) 3 ml 1X ONCE IJ Last administered on 02/13/17 11:40; Start 02/13/17 at 11:15; Stop 02/13/17 at 11:26; Status DC Heparin Sodium/ Sodium Chloride 60 unit 1X ONCE IV Last administered on 11:40; Start 02/13/17 at 11:15; Stop 02/13/17 at 11:26; Status DC Lidocaine/Sodium Bicarbonate (Buffered Lidocaine 1%) 20 ml STK-MED ONCE IJ ; Start 02/13/17 at 11:22; Stop 02/13/17 at 11:29; Status DC Heparin Sodium (Porcine) (Heparin Sodium) 2,075 unit 1X ONCE IV Last administered on 02/13/17 12:45; Start 02/13/17 at 11:45; Stop 02/13/17 at 11:56; Status DC Heparin Sodium/ Dextrose 500 ml @ 16.5 mls/hr CONT PRN IV SEE I/O RECORD Last administered on 02/13/17 12:47; Start 02/13/17 at 11:45; Stop 02/14/17 at 13:53; Status DC Heparin Sodium (Porcine) (Heparin Sodium) 1,550 unit PRN Q6HRS PRN IV FOR UFH LEVEL LESS THAN 0.2 Last administered on 02/13/17 20:22; Start 02/13/17 at 11:45 ; Stop 02/14/17 at 13:53; Status DC Heparin Sodium (Porcine) (Heparin Sodium) 800 unit PRN Q6HRS PRN IV FOR UFH LEVEL 0.2 - 0.29 Last administered on 02/14/17 02:34; Start 02/13/17 at 11:45; Stop 02/14/17 at 13:53; Status DC Warfarin Sodium (Coumadin Per Pharmacy) 1 each PRN DAILY PRN MC PER PROTOCOL; Start 02/13/17 at 11:45; Status Cancel Info (Anti-Coagulation Monitoring By Pharmacy) 1 each PRN DAILY PRN MC SEE COMMENTS; Start 02/13/17 at 13:00; Stop 02/14/17 at 16:28; Status DC Calcium Chloride 1,000 mg STK-MED ONCE IV ; Start 02/12/17 at 10:00; Stop at 16:27; Status DC Epinephrine HCl (EPINEPHrine SYRINGE) 1 mg STK-MED ONCE .ROUTE ; Start 02/12/17 at 10:00; Stop 02/13/17 at 16:27; Status DC Dextrose (Dextrose 50%-Water Syringe) 25 gm STK-MED ONCE IV ; Start 02/12/17 at 10:00; Stop 02/13/17 at 16:27; Status DC Sodium Bicarbonate 50 meq STK-MED ONCE .ROUTE ; Start 02/12/17 at 10:00; Stop 02/13/17 at 16:27; Status DC Methylprednisolone Sodium Succinate (SOLU-Medrol 125MG VIAL) 100 mg TID IV Last administered on 02/24/17 08:13; Start 02/14/17 at 18:00 Norepinephrine Bitartrate 250 ml @ 0 mls/hr CONT PRN IV SEE I/O RECORD; Start 02/14/17 at 15:30; Status Cancel Famotidine (Pepcid) 20 mg DAILY IVP Last administered on 9/18/17at 08:13; Start 02/15/17 at 09:00 Amino Acids/ Glycerin/ Electrolytes 1,000 ml @ 80 mls/hr [id number] IV Last administered on 02/15/17 09:32; Start 02/15/17 at 08:45; Stop 02/15/17 at 15:14; Status DC Albumin Human 100 ml @ 100 mls/hr 1X ONCE IV Last administered on 02/15/17 09 :30; Start 02/15/17 at 08:45; Stop 02/15/17 at 09:44; Status DC Furosemide (Lasix) 40 mg 1X ONCE IVP ; Start 02/15/17 at 08:45; Stop 02/15/17 at 09:18; Status DC Piperacillin Sod/ Tazobactam Sod 2.25 gm/Sodium Chloride 50 ml @ 100 mls/hr Q6HRS IV Last administered on 02/16/17 05:52; Start 02/15/17 at 12:00; Stop 03/25 at 09:17; Status DC Daptomycin 340 mg/ Sodium Chloride 50 ml @ 100 mls/hr ONCE ONCE IV Last administered on 02/15/17 11:15; Start 02/15/17 at 11:15; Stop 02/15/17 at 11:44; Status DC Dextrose/Sodium Chloride 1,000 ml @ 40 mls/hr Q24H IV Last administered on 22:55; Start 02/15/17 at 15:15 Lidocaine/Sodium Bicarbonate (Buffered Lidocaine 1%) 3 ml 1X ONCE IJ Last administered on 02/15/17 16:00; Start 02/15/17 at 15:45; Stop 02/15/17 at 15:46; Status DC Heparin Sodium/ Sodium Chloride 6,000 unit 1X ONCE IV ; Start 02/15/17 at 15:45 ; Stop 02/15/17 at 15:46; Status DC Sodium Chloride 1,000 ml @ 1,000 mls/hr Q1H PRN IV hypotension; Start 02/16/17 at 06:38; Stop 02/16/17 at 12:37; Status DC Info (PHARMACY MONITORING -- do not chart) 1 each PRN DAILY PRN MC SEE COMMENTS ; Start 02/16/17 at 06:45; Stop 02/22/17 at 07:49; Status DC Info (PHARMACY MONITORING -- do not chart) 1 each PRN DAILY PRN MC SEE COMMENTS ; Start 02/16/17 at 06:45; Stop 02/16/17 at 09:19; Status DC Info (PHARMACY MONITORING -- do not chart) 1 each PRN DAILY PRN MC SEE COMMENTS ; Start 02/16/17 at 06:45; Stop 02/16/17 at 09:19; Status DC Albumin Human 100 ml @ 100 mls/hr 1X ONCE IV Last administered on 02/16/17 07:18; Start 02/16/17 at 07:00; Stop 02/16/17 at 07:59; Status DC Piperacillin Sod/ Tazobactam Sod 2.25 gm/Sodium Chloride 50 ml @ 100 mls/hr Q8HRS IV Last administered on 02/18/17 05:55; Start 02/16/17 at 14:00; Stop at 07:22; Status DC Daptomycin 340 mg/ Sodium Chloride 50 ml @ 100 mls/hr QODAY IV Last administered on 02/17/17 12:22; Start 02/17/17 at 09:00; Stop 02/18/17 at 07:22 ; Status DC Sodium Chloride 1,000 ml @ 1,000 mls/hr Q1H PRN IV hypotension; Start 02/17/17 at 08:30; Stop 02/17/17 at 16:00; Status DC Albumin Human 200 ml @ 200 mls/hr 1X PRN PRN IV Hypotension; Start 02/17/17 at 08:30; Stop 02/17/17 at 16:00; Status DC Sodium Chloride 1,000 ml @ 400 mls/hr Q2H30M PRN IV PATENCY; Start 02/17/17 at 08:30; Stop 02/17/17 at 16:00; Status DC Info (PHARMACY MONITORING -- do not chart) 1 each PRN DAILY PRN MC SEE COMMENTS ; Start 02/17/17 at 08:30; Status UNV Info (PHARMACY MONITORING -- do not chart) 1 each PRN DAILY PRN MC SEE COMMENTS ; Start 02/17/17 at 08:30; Status UNV Heparin Sodium (Porcine) (Heparin Sq) 5,000 unit Q8HRS SQ Last administered on 02/22/17 05:49; Start 02/17/17 at 14:00; Stop 02/22/17 at 14:24; Status DC Bisacodyl (Dulcolax Supp) 10 mg PRN DAILY PRN WI CONSTIPATION; Start 02/17/17 at 15:00 Polyethylene Glycol (miraLAX PACKET) 17 gm PRN DAILY PRN FT CONSTIPATION; Start 02/17/17 at 15:00 Levetiracetam 500 mg/Sodium Chloride 100 ml @ 400 mls/hr Q12HR IV Last administered on 02/24/17 08:13; Start 02/17/17 at 21:00 Vancomycin HCl (Vanco Per Pharmacy) 1 each PRN DAILY PRN MC SEE COMMENTS Last administered on 02/23/17 11:11; Start 02/18/17 at 07:30 Vancomycin HCl 1.5 gm/Sodium Chloride 500 ml @ 250 mls/hr 1X ONCE IV Last administered on 02/18/17 14:43; Start 02/18/17 at 14:30; Stop 02/18/17 at 16:29 ; Status DC Vancomycin HCl 1 each 1X ONCE MC Last administered on 02/20/17 05:00; Start 02/20/17 at 05:00; Stop 02/20/17 at 05:01; Status DC Sodium Chloride 1,000 ml @ 1,000 mls/hr Q1H PRN IV hypotension; Start 02/19/17 at 09:08; Stop 02/19/17 at 15:07; Status DC Albumin Human 200 ml @ 200 mls/hr 1X PRN PRN IV Hypotension; Start 02/19/17 at 09:15; Stop 02/19/17 at 15:14; Status DC Sodium Chloride 1,000 ml @ 400 mls/hr Q2H30M PRN IV PATENCY; Start 02/19/17 at 09:08; Stop 02/19/17 at 21:07; Status DC Info (PHARMACY MONITORING -- do not chart) 1 each PRN DAILY PRN MC SEE COMMENTS ; Start 02/19/17 at 09:15; Stop 02/19/17 at 09:17; Status DC Info (PHARMACY MONITORING -- do not chart) 1 each PRN DAILY PRN MC SEE COMMENTS ; Start 02/19/17 at 09:15; Stop 02/20/17 at 12:35; Status DC Vancomycin HCl 500 mg/Sodium Chloride 100 ml @ 100 mls/hr QMWF IV Last administered on 02/21/17t 16:17; Start 02/21/17 at 16:00 Sodium Chloride 1,000 ml @ 1,000 mls/hr Q1H PRN IV hypotension; Start 02/21/17 at 08:14; Stop 02/21/17 at 14:13; Status DC Diphenhydramine HCl (Benadryl) 25 mg 1X PRN PRN IV ITCHING; Start 02/21/17 at 08:15; Stop 02/22/17 at 08:14; Status DC Diphenhydramine HCl (Benadryl) 25 mg 1X PRN PRN IV ITCHING; Start 02/21/17 at 08:15; Stop 02/22/17 at 08:14; Status DC Sodium Chloride (Normal Saline Flush) 10 ml 1X PRN PRN IV AP catheter pack; Start 02/21/17 at 08:15; Stop 02/22/17 at 08:14; Status DC Sodium Chloride (Normal Saline Flush) 10 ml 1X PRN PRN IV [employer] catheter pack; Start 02/21/17 at 08:15; Stop 02/22/17 at 08:14; Status DC Sodium Chloride 1,000 ml @ 400 mls/hr Q2H30M PRN IV PATENCY; Start 02/21/17 at 08:14; Stop 02/21/17 at 20:13; Status DC Info (PHARMACY MONITORING -- do not chart) 1 each PRN DAILY PRN MC SEE COMMENTS ; Start 02/21/17 at 08:15; Stop 02/24/17 at 08:29; Status DC Sodium Chloride 1,000 ml @ 1,000 mls/hr Q1H PRN IV hypotension; Start 02/24/17 at 08:19; Stop 02/24/17 at 14:18 Albumin Human 200 ml @ 200 mls/hr 1X PRN PRN IV Hypotension Last administered on 02/24/17t 10:12; Start 02/24/17 at 08:30; Stop 02/24/17 at 14:29 Acetaminophen (Tylenol) 500 mg 1X PRN PRN PO MILD PAIN / TEMP; Start 02/24/17 at 08:30; Stop 02/25/17 at 08:29 Diphenhydramine HCl (Benadryl) 25 mg 1X PRN PRN IV ITCHING; Start 02/24/17 at 08:30; Stop 02/25/17 at 08:29 Diphenhydramine HCl (Benadryl) 25 mg 1X PRN PRN IV ITCHING; Start 02/24/17 at 08:30; Stop 02/25/17 at 08:29 Labetalol HCl (Normodyne) 10 mg PRN Q1HR PRN IVP SBP > 180; Start 02/24/17 at 08:30; Stop 02/25/17 at 08:29 Info (PHARMACY MONITORING -- do not chart) 1 each PRN DAILY PRN MC SEE COMMENTS ; Start 02/24/17 at 08:30 Albumin Human 200 ml @ 100 mls/hr 1X ONCE IV Last administered on 02/24/17t 09:51; Start 02/24/17 at 09:45; Stop 02/24/17 at 11:44 Active Scripts Active Reported Latuda (Lurasidone Hcl) 20 Mg Tablet 20 Mg PO AFTRNOON Remeron (Mirtazapine) 15 Mg Tablet 1 Tab PO QHS Oxybutynin Chloride Er (Oxybutynin Chloride) 10 Mg Tab.er.24 1 Tab PO DAILY Multivitamins (Multivitamin) 1 Each Tablet 1 Tab PO DAILY Latuda (Lurasidone Hcl) 20 Mg Tablet 10 Mg PO AFTRNOON Lorazepam 0.5 Mg Tablet 1 Tab PO QEVNG Duoneb 0.5-3(2.5) Mg/3 Ml (Albuterol/Ipratropium) 3 Ml Ampul.neb 3 Ml NEB BID Duoneb 0.5-3(2.5) Mg/3 Ml (Albuterol/Ipratropium) 3 Ml Ampul.neb 3 Ml NEB Q4H PRN Calcium Carbonate 500 Mg Tablet 1,000 Mg PO Q4HRS PRN Nicotine Gum (Nicotine Polacrilex) 4 Mg Gum 4 Mg BC Milk Of Magnesia (Magnesium Hydroxide) 400 Mg/5 Ml Oral.susp 400 Mg PO Q3DAYS PRN Milk Of Magnesia (Magnesium Hydroxide) 400 Mg/5 Ml Oral.susp 400 Mg PO Q3DAYS PRN Lorazepam 1 Mg Tablet 1 Tab PO Q12HR PRN Ibuprofen 400 Mg Tablet 200 Mg PO Q8HRS PRN Cough Drops (Eucalyptus Oil/Menthol) 7 Mg Lozenge 7 Mg MM Q4HRS PRN Tylenol (Acetaminophen) 325 Mg Tablet 650 Mg PO Q4HRS PRN Lovaza (Embarrass-3 Acid Ethyl Esters) 1 Gm Capsule 1 Cap PO QID Gabapentin 400 Mg Capsule 400 Mg PO QID Lorazepam 1 Mg Tablet 1 Tab PO BID Latuda (Lurasidone Hcl) 60 Mg Tablet 60 Mg PO BID Advair 100-50 Diskus (Fluticasone/Salmeterol) 1 Each Disk.w.dev 1 Puff IH BID Acetaminophen 325 Mg Capsule 650 Mg PO BID Vitamin D (Cholecalciferol (Vitamin D3)) 2,000 Unit Capsule 800 Unit PO DAILY Vitals/I & O Vital Sign - Last 24 Hours 02/23/17 02/23/17 02/23/17 02/23/17 11:36 12:00 12:00 13:03 Temp 98.5 98.5 Pulse 105 103 Resp 28 B/P (MAP) 156/80 (105) 159/84 (109) Pulse Ox 99 99 99 O2 Delivery Ventilator Mechanical Ventilator Ventilator Ventilator 02/23/17 02/23/17 02/23/17 02/23/17 13:40 14:00 15:00 15:17 Pulse 101 101 Resp 28 B/P (MAP) 148/81 (103) 161/81 (107) Pulse Ox 99 99 99 100 O2 Delivery Ventilator Ventilator Ventilator Ventilator 02/23/17 02/23/17 02/23/17 02/23/17 15:51 16:00 17:00 17:47 Temp 98.5 98.5 Pulse 98 98 Resp 27 B/P (MAP) 145/78 (100) 150/88 (108) Pulse Ox 99 99 99 O2 Delivery Mechanical Ventilator Ventilator Ventilator Ventilator 02/23/17 02/23/17 02/23/17 02/23/17 18:00 19:00 19:35 20:00 Temp 96.9 96.9 Pulse 101 98 96 Resp 23 B/P (MAP) 161/82 (108) 152/74 (100) 151/77 (101) Pulse Ox 99 99 99 100 O2 Delivery Ventilator Ventilator Ventilator Ventilator 02/23/17 02/23/17 02/23/17 02/23/17 20:00 21:00 22:00 22:37 Pulse 92 91 Resp 25 23 B/P (MAP) 135/79 (97) 151/85 (107) Pulse Ox 99 98 100 O2 Delivery Mechanical Ventilator Ventilator Ventilator Ventilator 02/23/17 02/23/17 02/24/17 02/24/17 23:00 23:59 00:00 00:33 Temp 98.0 98.0 Pulse 92 93 Resp 24 24 B/P (MAP) 151/83 (105) 155/86 (109) Pulse Ox 100 100 100 O2 Delivery Ventilator Mechanical Ventilator Ventilator Ventilator 02/24/17 02/24/17 02/24/17 02/24/17 01:00 02:00 02:32 03:00 Pulse 97 102 102 Resp 23 26 27 B/P (MAP) 162/80 (107) 141/85 (103) 153/85 (107) Pulse Ox 99 99 99 99 O2 Delivery Ventilator Ventilator Ventilator Ventilator 02/24/17 02/24/17 02/24/17 02/24/17 04:00 04:00 05:00 05:13 Temp 98.0 98.0 Pulse 106 98 Resp 26 B/P (MAP) 145/88 (107) 150/82 (104) Pulse Ox 100 100 100 O2 Delivery Mechanical Ventilator Ventilator Ventilator Ventilator 02/24/17 02/24/17 02/24/17 02/24/17 06:00 07:05 07:50 08:14 Temp 98.1 98.1 Pulse 105 98 98 Resp 28 25 24 B/P (MAP) 173/86 (115) 141/64 (89) 154/84 (107) Pulse Ox 99 100 99 O2 Delivery Ventilator Ventilator Mechanical Ventilator Ventilator 02/24/17 02/24/17 02/24/17 02/24/17 08:37 09:00 09:18 10:03 Pulse 119 128 Resp 25 30 B/P (MAP) 117/64 (81) 137/104 (115) Pulse Ox 99 99 100 100 O2 Delivery Ventilator Ventilator Ventilator Ventilator 02/24/17 11:02 Pulse 120 Resp 32 B/P (MAP) 109/78 (88) Pulse Ox 100 O2 Delivery Ventilator Intake and Output 02/24/17 02/24/17 02/25/17 15:00 23:00 07:00 Intake Total 0 ml Balance 0 ml GEOVANNA ARAGONL K III DO Feb 24, 2017 11:24
[2017-02-24] MEDS ORDERED: fentaNYL PF VIAL 100 MCG/2 ML VIAL IM ONE (11:30)
--- NOTE | 2017-02-24 11:30 | PDOC ---
PULMONARY PROGRESS NOTES Subjective on vent, tachypneac, anemic, not following commands Vitals Vital Signs Date Time Temp Pulse Resp B/P (MAP) Pulse Ox O2 Delivery O2 Flow Rate FiO2 02/24/17 11:02 120 32 109/78 (88) 100 Ventilator 02/24/17 08:14 98.1 98.1 Comments doris, paula w rn, as mentioned as above other sys otherwise neg HEENT: Other (nc at perrl, nose clear, orally intubated. neck no lap thyromegaly) Lungs: Other (decrease bs) Cardiovascular: S1, S2 Abdomen: Soft, Non-tender, Other (no mass) Extremities: No Edema Skin: Warm, Dry Labs Laboratory Tests Test 02/22/17 14:38 02/22/17 16:37 02/22/17 16:40 02/23/17 05:40 Clostridium difficile Toxin (PCR) Negative (Negative) Glucose (Fingerstick) 160 mg/dL (70-99) Fibrinogen 273 mg/dL (200-440) White Blood Count 55.2 x10^3/uL (4.0-11.0) Red Blood Count 2.39 x10^6/uL (3.50-5.40) Hemoglobin 7.3 g/dL (12.0-15.5) Hematocrit 21.6 % (36.0-47.0) Mean Corpuscular Volume 90 fL (79-100) Mean Corpuscular Hemoglobin 31 pg (25-35) Mean Corpuscular Hemoglobin Concent 34 g/dL (31-37) Red Cell Distribution Width 15.4 % (11.5-14.5) Platelet Count 197 x10^3/uL (140-400) Neutrophils (%) (Auto) 91 % (31-73) Lymphocytes (%) (Auto) 4 % (24-48) Monocytes (%) (Auto) 5 % (0-9) Eosinophils (%) (Auto) 0 % (0-3) Basophils (%) (Auto) 0 % (0-3) Neutrophils # (Auto) 50.2 x10^3uL (1.8-7.7) Lymphocytes # (Auto) 1.9 x10^3/uL (1.0-4.8) Monocytes # (Auto) 2.9 x10^3/uL (0.0-1.1) Eosinophils # (Auto) 0.0 x10^3/uL (0.0-0.7) Basophils # (Auto) 0.1 x10^3/uL (0.0-0.2) Sodium Level 134 mmol/L (136-145) Potassium Level 4.8 mmol/L (3.5-5.1) Chloride Level 97 mmol/L (98-107) Carbon Dioxide Level 23 mmol/L (21-32) Anion Gap 14 (6-14) Blood Urea Nitrogen 125 mg/dL (7-20) Creatinine 4.8 mg/dL (0.6-1.0) Estimated GFR (Cockcroft-Gault) 11.4 Glucose Level 177 mg/dL (70-99) Calcium Level 7.8 mg/dL (8.5-10.1) Test 02/24/17 06:00 White Blood Count 50.5 x10^3/uL (4.0-11.0) Red Blood Count 2.00 x10^6/uL (3.50-5.40) Hemoglobin 6.2 g/dL (12.0-15.5) Hematocrit 19.0 % (36.0-47.0) Mean Corpuscular Volume 95 fL (79-100) Mean Corpuscular Hemoglobin 31 pg (25-35) Mean Corpuscular Hemoglobin Concent 33 g/dL (31-37) Red Cell Distribution Width 15.4 % (11.5-14.5) Platelet Count 192 x10^3/uL (140-400) Neutrophils (%) (Auto) 95 % (31-73) Lymphocytes (%) (Auto) 2 % (24-48) Monocytes (%) (Auto) 2 % (0-9) Eosinophils (%) (Auto) 0 % (0-3) Basophils (%) (Auto) 1 % (0-3) Neutrophils # (Auto) 48.0 x10^3uL (1.8-7.7) Lymphocytes # (Auto) 1.0 x10^3/uL (1.0-4.8) Monocytes # (Auto) 1.1 x10^3/uL (0.0-1.1) Eosinophils # (Auto) 0.0 x10^3/uL (0.0-0.7) Basophils # (Auto) 0.3 x10^3/uL (0.0-0.2) Sodium Level 132 mmol/L (136-145) Potassium Level 5.2 mmol/L (3.5-5.1) Chloride Level 96 mmol/L (98-107) Carbon Dioxide Level 23 mmol/L (21-32) Anion Gap 13 (6-14) Blood Urea Nitrogen 160 mg/dL (7-20) Creatinine 5.7 mg/dL (0.6-1.0) Estimated GFR (Cockcroft-Gault) 9.4 Glucose Level 183 mg/dL (70-99) Calcium Level 8.0 mg/dL (8.5-10.1) Laboratory Tests Test 02/24/17 06:00 White Blood Count 50.5 x10^3/uL (4.0-11.0) Red Blood Count 2.00 x10^6/uL (3.50-5.40) Hemoglobin 6.2 g/dL (12.0-15.5) Hematocrit 19.0 % (36.0-47.0) Mean Corpuscular Volume 95 fL (79-100) Mean Corpuscular Hemoglobin 31 pg (25-35) Mean Corpuscular Hemoglobin Concent 33 g/dL (31-37) Red Cell Distribution Width 15.4 % (11.5-14.5) Platelet Count 192 x10^3/uL (140-400) Neutrophils (%) (Auto) 95 % (31-73) Lymphocytes (%) (Auto) 2 % (24-48) Monocytes (%) (Auto) 2 % (0-9) Eosinophils (%) (Auto) 0 % (0-3) Basophils (%) (Auto) 1 % (0-3) Neutrophils # (Auto) 48.0 x10^3uL (1.8-7.7) Lymphocytes # (Auto) 1.0 x10^3/uL (1.0-4.8) Monocytes # (Auto) 1.1 x10^3/uL (0.0-1.1) Eosinophils # (Auto) 0.0 x10^3/uL (0.0-0.7) Basophils # (Auto) 0.3 x10^3/uL (0.0-0.2) Sodium Level 132 mmol/L (136-145) Potassium Level 5.2 mmol/L (3.5-5.1) Chloride Level 96 mmol/L (98-107) Carbon Dioxide Level 23 mmol/L (21-32) Anion Gap 13 (6-14) Blood Urea Nitrogen 160 mg/dL (7-20) Creatinine 5.7 mg/dL (0.6-1.0) Estimated GFR (Cockcroft-Gault) 9.4 Glucose Level 183 mg/dL (70-99) Calcium Level 8.0 mg/dL (8.5-10.1) Medications Active Scripts Medications Dose Route/Sig Max Daily Dose Days Date Category Latuda (Lurasidone Hcl) 20 Mg Tablet 20 Mg PO AFTRNOON 02/12/17 Reported Remeron (Mirtazapine) 15 Mg Tablet 1 Tab PO QHS 02/12/17 Reported Oxybutynin Chloride Er (Oxybutynin Chloride) 10 Mg Tab.er.24 1 Tab PO DAILY 02/12/17 Reported Multivitamins (Multivitamin) 1 Each Tablet 1 Tab PO DAILY 02/12/17 Reported Latuda (Lurasidone Hcl) 20 Mg Tablet 10 Mg PO AFTRNOON 02/12/17 Reported Lorazepam 0.5 Mg Tablet 1 Tab PO QEVNG 02/12/17 Reported Duoneb 0.5-3(2.5) Mg/3 Ml (Albuterol/Ipratropium) 3 Ml Ampul.neb 3 Ml NEB BID 02/12/17 Reported Duoneb 0.5-3(2.5) Mg/3 Ml (Albuterol/Ipratropium) 3 Ml Ampul.neb 3 Ml NEB Q4H PRN 02/12/17 Reported Calcium Carbonate 500 Mg Tablet 1,000 Mg PO Q4HRS PRN 02/12/17 Reported Nicotine Gum (Nicotine Polacrilex) 4 Mg Gum 4 Mg BC 02/12/17 Reported Milk Of Magnesia (Magnesium Hydroxide) 400 Mg/5 Ml Oral.susp 400 Mg PO Q3DAYS PRN 02/12/17 Reported Milk Of Magnesia (Magnesium Hydroxide) 400 Mg/5 Ml Oral.susp 400 Mg PO Q3DAYS PRN 02/12/17 Reported Lorazepam 1 Mg Tablet 1 Tab PO Q12HR PRN 02/12/17 Reported Ibuprofen 400 Mg Tablet 200 Mg PO Q8HRS PRN 9/6/17 Reported Cough Drops (Eucalyptus Oil/Menthol) 7 Mg Lozenge 7 Mg MM Q4HRS PRN 02/12/17 Reported Tylenol (Acetaminophen) 325 Mg Tablet 650 Mg PO Q4HRS PRN 02/12/17 Reported Lovaza ([place]-3 Acid Ethyl Esters) 1 Gm Capsule 1 Cap PO QID 02/12/17 Reported Gabapentin 400 Mg Capsule 400 Mg PO QID 02/12/17 Reported Lorazepam 1 Mg Tablet 1 Tab PO BID 02/12/17 Reported Latuda (Lurasidone Hcl) 60 Mg Tablet 60 Mg PO BID 02/12/17 Reported Advair 100-50 Diskus (Fluticasone/Salmeterol) 1 Each Disk.w.dev 1 Puff IH BID 02/12/17 Reported Acetaminophen 325 Mg Capsule 650 Mg PO BID 02/12/17 Reported Vitamin D (Cholecalciferol (Vitamin D3)) 2,000 Unit Capsule 800 Unit PO DAILY 02/12/17 Reported Comments cxr reviewed ? mild BATOOL INFILTRATES, no change Impression . 1. Acute respiratory failure, sec to out of hospital arrest 2. Acute toxic/metabolic/ anoxic encephalopathy 3. Status post cardiopulmonary arrest. She had asystole. anoxic brain injury 4. Abnormal echocardiogram with ejection fraction of 35%. 5. Hyponatremia, improving 6. Abnormal LFTs secondary to hypoperfusion. 7. Acute renal failure.on HD 8. Shock, combination of cardiogenic,septic/ OFF PRESSOR 9. MRSA bactremia/ sepsis 10. Marked leukocytosis, ?steroids induced vs sepsis vs leukemoid reaction 11. Hyperventilation. ? pain related, ? due to anemia, acidosis Plan . cont vent support, vent setting reviewed, still tachypneac, add narcotics transfuse PRBC with HD increase bicarb bath with HD CONTINUE SUPPORT FOR NOW CXR REVIEWD CT HEAD NOTHING NEW NUTRITION VIA TF PROGNOSIS IS POOR FOR MEANINGFUL RECOVERY. LETTER WRITTEN TO COURT COURT APPOINTED DPOA MAY NOT BE ABLE TO MAKE ANY DECISION REGARDING WITHDRAWL OF CARE. MAY HAVE TO DO TRACH/PEG ANTIBX PER ID TAPER STEROIDS FOLLOW NEURO INPUT D/W RN/RT CCT 30 MIN NEVA FALCON MD Feb 24, 2017 11:30
[2017-02-24 12:50] LABS: HCO3 ABG 25 mmol/L (21-28); PCO2 ABG 39 mmHg (35-46); PH ABG 7.44 (7.35-7.45); PO2 ABG 82 mmHg (75-108); SAT O2 ABG 95 % (92-99)
[2017-02-24 12:52] LABS: FIO2 ABG 35
[2017-02-24] MEDS ORDERED: fentaNYL PF VIAL 100 MCG/2 ML VIAL IV ONE (13:00)
[2017-02-24] MEDS: VANCOMYCIN 500 MG in IV NORMAL SALINE 100ML 100 ML IV SCH (16:10)
[2017-02-24] MEDS: IV DEXTROSE 5 %-0.2 % NACL 1,000 ML IV SCH (21:11)
[2017-02-25] VITALS (29 sets, daily range): BP systolic 126–162; BP diastolic 66–97
[2017-02-25 05:33] LABS: CALCIUM 7.8 mg/dL (8.5-10.1); CREATININE 3.7 mg/dL (0.6-1.0); GFR 15.4; POTASSIUM 4.6 mmol/L (3.5-5.1)
[2017-02-25 06:43] LABS: BASO # 0.1 x10^3/uL (0.0-0.2); BASO % 0 % (0-3); EOS % 0 % (0-3); LYMPH # 0.5 x10^3/uL (1.0-4.8); LYMPH % 2 % (24-48); MEAN CORPUSCULAR HEMOGLOBIN 32 pg (25-35); MEAN CORPUSCULAR HGB CONC 34 g/dL (31-37); MEAN CORPUSCULAR VOLUME 94 fL (79-100); MONO % 5 % (0-9); NEUT % 93 % (31-73); PLATELET COUNT 162 x10^3/uL (140-400); RED BLOOD COUNT 2.08 x10^6/uL (3.50-5.40); RED CELL DISTRIBUTION WIDTH 14.4 % (11.5-14.5); WHITE BLOOD COUNT 29.2 x10^3/uL (4.0-11.0)
[2017-02-25 06:46] LABS: HEMATOCRIT 19.4 % (36.0-47.0); HEMOGLOBIN 6.5 g/dL (12.0-15.5)
--- NOTE | 2017-02-25 07:26 | RAD ---
Portable chest, 02/25/2017: History: Congestive heart failure Comparison is made to yesterday's study. The ET tube, NG tube and bilateral jugular venous catheters are unchanged in positions. The heart size is normal. The pulmonary vascularity is within normal limits. The pulmonary markings remain mildly prominent. No new pulmonary abnormality is seen. There is no evidence of pleural fluid or pneumothorax. IMPRESSION: 1. Various tubes and catheters remain in place in satisfactory positions. 2. Mild unchanged interstitial prominence in the lungs. 3. No new abnormality is detected.
[2017-02-25] MEDS: ASPIRIN 300 MG SUPP.RECT PR SCH (08:27)
[2017-02-25] MEDS: methylPREDNISolone SOD SUCC PF 125 MG/2 ML VIAL. IV SCH (08:28)
[2017-02-25] MEDS: FAMOTIDINE 20 MG/2 ML VIAL IVP SCH (08:29)
--- NOTE | 2017-02-25 08:42 | PDOC ---
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 SKIN: No rash IV: ok Labs Lab Laboratory Tests Test 02/24/17 12:40 02/25/17 00:00 02/25/17 04:59 02/25/17 06:23 O2 Saturation 95 % (92-99) Arterial Blood pH 7.44 (7.35-7.45) Arterial Blood pCO2 at Patient Temp 39 mmHg (35-46) Arterial Blood pO2 at Patient Temp 82 mmHg (75-108) Arterial Blood HCO3 25 mmol/L (21-28) Arterial Blood Base Excess 1 mmol/L (-3-3) FiO2 35 Glucose (Fingerstick) 149 mg/dL (70-99) 135 mg/dL (70-99) White Blood Count 29.2 x10^3/uL (4.0-11.0) Red Blood Count 2.08 x10^6/uL (3.50-5.40) Hemoglobin 6.5 g/dL (12.0-15.5) Hematocrit 19.4 % (36.0-47.0) Mean Corpuscular Volume 94 fL (79-100) Mean Corpuscular Hemoglobin 32 pg (25-35) Mean Corpuscular Hemoglobin Concent 34 g/dL (31-37) Red Cell Distribution Width 14.4 % (11.5-14.5) Platelet Count 162 x10^3/uL (140-400) Neutrophils (%) (Auto) 93 % (31-73) Lymphocytes (%) (Auto) 2 % (24-48) Monocytes (%) (Auto) 5 % (0-9) Eosinophils (%) (Auto) 0 % (0-3) Basophils (%) (Auto) 0 % (0-3) Neutrophils # (Auto) 27.2 x10^3uL (1.8-7.7) Lymphocytes # (Auto) 0.5 x10^3/uL (1.0-4.8) Monocytes # (Auto) 1.4 x10^3/uL (0.0-1.1) Eosinophils # (Auto) 0.0 x10^3/uL (0.0-0.7) Basophils # (Auto) 0.1 x10^3/uL (0.0-0.2) Sodium Level 136 mmol/L (136-145) Potassium Level 4.6 mmol/L (3.5-5.1) Chloride Level 97 mmol/L (98-107) Carbon Dioxide Level 29 mmol/L (21-32) Anion Gap 10 (6-14) Blood Urea Nitrogen 101 mg/dL (7-20) Creatinine 3.7 mg/dL (0.6-1.0) Estimated GFR (Cockcroft-Gault) 15.4 Glucose Level 141 mg/dL (70-99) Calcium Level 7.8 mg/dL (8.5-10.1) Micro BC MRSA Objective Assessment Fever - better - procalcitonin mild elevation MRSA sepsis/bacteremia, POA. 02/12. -TTE no evidence veg; Repeat BC from 02/15 negative Anemia Encephalopathy S/P Cardiac arrest Respiratory failure COPD Leukocytosis, on steroids, trending up DARYA. Now on HD Schizophrenia MRSA nares positive Plan Plan of Care Cont Vanc Await court decision Needs DNR/DNI Needs palliative extubation as overall prognosis is poor Critically ill MILAGROS GREER MD Feb 25, 2017 08:42
[2017-02-25] MEDS: VANCOMYCIN PER PHARMACY MC PRN (09:28)
--- NOTE | 2017-02-25 09:39 | PDOC ---
SUBJECTIVE ROS ADRYA/ ATN post Code remains encephalopathic (? Anoxic) OBJECTIVE Vital Signs Vital Signs Date Time Temp Pulse Resp B/P (MAP) Pulse Ox O2 Delivery O2 Flow Rate FiO2 02/25/17 09:17 98.4 81 22 136/72 98.4 02/25/17 09:17 99 Ventilator I & 0 Intake and Output 02/26/17 07:00 Intake Total 355 ml Output Total 20 ml Balance 335 ml Tube Feeding 5 ml Blood Product IV Normal Saline Flush 350 ml Output Urine Total 20 ml Gastric Drainage Total 0 ml PHYSICAL EXAM Physical Exam GEN: Not sedated but min responsive on the Vent EYES: Sclera Anicteric, Conjunctiva Normal EN: No EN Drainage, Mucous Membranes moist NECK: + JVD, + JVP, Supple, no palp Thyromegaly CVS: S1S2, ? Murmur, No Gallop, No Rub,+ Edema upper ext RESP: no Rales, no Rhonchi,+ Acc. Muscle Use GI: BS hypo ve, NO Bruit, Non Tender, Non Distended : no CVA tenderness, no Suprapubic Tenderness DIAGNOSIS/ASSESSMENT Assessment & Plan ARF/ ATN : Current fluid and E-lyte status does not necessitate emergent need for dialysis. Will re-evaluate for dialysis in the am and continue on MWF schedule. ANEMIA; Aranap as ordered, Transfuse as needed (onoing) HTN: Current BP reviewed. no pressors yet Oligo-anuria due to ATN - now on HD Poor PRognosis and very low likelihood to recover significant Cognition as noted in Neuro notes - await decision for withdrawal of care COMMENT/RELEVANT DATA Meds Current Medications Medications (Trade) Dose Ordered Sig/Bryce Start Time Stop Time Status Last Admin Dose Admin Acetaminophen (Acetaminophen Supp) 650 mg PRN Q6HRS PRN 02/13/17 17:00 Acetaminophen (Tylenol) 500 mg 1X PRN PRN 02/24/17 08:30 02/25/17 08:29 DC Albumin Human 200 ml @ 100 mls/hr 1X ONCE 02/24/17 09:45 02/24/17 11:44 DC 02/24/17 09:51 100 MLS/HR Amino Acids/ Glycerin/ Electrolytes 1,000 ml @ 80 mls/hr [id number] 02/15/17 08:45 02/15/17 15:14 DC 02/15/17 09:32 80 MLS/HR Aspirin (Aspirin) 300 mg DAILY 02/13/17 09:00 02/25/17 08:27 300 MG Bisacodyl (Dulcolax Supp) 10 mg PRN DAILY PRN 02/17/17 15:00 Calcium Chloride 1,000 mg STK-MED ONCE 02/12/17 10:00 02/13/17 16:27 DC Daptomycin 340 mg/ Sodium Chloride 50 ml @ 100 mls/hr QODAY 02/17/17 09:00 02/18/17 07:22 DC 02/17/17 12:22 100 MLS/HR Dextrose (Dextrose 50%-Water Syringe) 25 gm STK-MED ONCE 02/12/17 10:00 02/13/17 16:27 DC Dextrose/Sodium Chloride 1,000 ml @ 40 mls/hr Q24H 02/15/17 15:15 02/24/17 21:11 40 MLS/HR Diphenhydramine HCl (Benadryl) 25 mg 1X PRN PRN 02/24/17 08:30 02/25/17 08:29 DC Epinephrine HCl (EPINEPHrine SYRINGE) 1 mg STK-MED ONCE 02/12/17 10:00 02/13/17 16:27 DC Famotidine (Pepcid) 20 mg DAILY 02/15/17 09:00 02/25/17 08:29 20 MG Fentanyl Citrate (Fentanyl 2ml Vial) 25 mcg PRN Q4HRS PRN 02/24/17 16:30 Furosemide (Lasix) 40 mg 1X ONCE 02/15/17 08:45 02/15/17 09:18 DC Heparin Sodium (Porcine) (Heparin Sodium) 800 unit PRN Q6HRS PRN 02/13/17 11:45 02/14/17 13:53 DC 02/14/17 02:34 800 UNIT Heparin Sodium (Porcine) (Heparin Sq) 5,000 unit Q8HRS 02/17/17 14:00 02/22/17 14:24 DC 02/22/17 05:49 5,000 UNIT Heparin Sodium/ Dextrose 500 ml @ 16.5 mls/hr CONT PRN 02/13/17 11:45 02/14/17 13:53 DC 02/13/17 12:47 16.5 MLS/HR Heparin Sodium/ Sodium Chloride 6,000 unit 1X ONCE 02/15/17 15:45 02/15/17 15:46 DC Info (Anti-Coagulation Monitoring By Pharmacy) 1 each PRN DAILY PRN 02/13/17 13:00 02/14/17 16:28 DC Info (PHARMACY MONITORING -- do not chart) 1 each PRN DAILY PRN 02/24/17 08:30 Labetalol HCl (Normodyne) 10 mg PRN Q1HR PRN 02/24/17 08:30 02/25/17 08:29 DC Levetiracetam 500 mg/Sodium Chloride 100 ml @ 400 mls/hr Q12HR 02/17/17 21:00 02/25/17 08:28 400 MLS/HR Lidocaine/Sodium Bicarbonate (Buffered Lidocaine 1%) 3 ml 1X ONCE 02/15/17 15:45 02/15/17 15:46 DC 02/15/17 16:00 3 ML Lorazepam (Ativan) 1 mg PRN Q30MIN PRN 02/12/17 17:00 Magnesium Sulfate/ Dextrose 50 ml @ 25 mls/hr PRN DAILY PRN 02/13/17 10:45 Meperidine HCl (Demerol) 12.5 mg PRN Q30MIN PRN 02/12/17 17:00 02/25/17 09:24 DC Methylprednisolone Sodium Succinate (SOLU-Medrol 40MG VIAL) 100 mg TID 02/12/17 18:00 02/14/17 12:00 DC 02/14/17 11:01 100 MG Methylprednisolone Sodium Succinate (SOLU-Medrol 125MG VIAL) 50 mg BID 02/24/17 21:00 02/25/17 08:28 50 MG Multi-Ingred Cream/Lotion/Oil/ Oint (Artificial Tears Eye Oint) 1 silvestre PRN Q6HRS PRN 02/12/17 17:00 02/23/17 07:34 1 SILVESTRE Norepinephrine Bitartrate 250 ml @ 0 mls/hr CONT PRN 02/14/17 15:30 Cancel Piperacillin Sod/ Tazobactam Sod (Zosyn Per Pharmacy) 1 each PRN DAILY PRN 02/12/17 19:15 02/18/17 07:22 DC Piperacillin Sod/ Tazobactam Sod 2.25 gm/Sodium Chloride 50 ml @ 100 mls/hr Q8HRS 02/16/17 14:00 02/18/17 07:22 DC 02/18/17 05:55 100 MLS/HR Piperacillin Sod/ Tazobactam Sod 3.375 gm/Sodium Chloride 50 ml @ 100 mls/hr Q6HRS 02/12/17 19:30 02/15/17 09:37 DC 02/15/17 05:58 100 MLS/HR Polyethylene Glycol (miraLAX PACKET) 17 gm PRN DAILY PRN 02/17/17 15:00 Propofol 100 ml @ 0 mls/hr CONT PRN 02/12/17 17:00 02/20/17 10:36 DC Sodium Bicarbonate 50 meq STK-MED ONCE 02/12/17 10:00 02/13/17 16:27 DC Sodium Chloride 1,000 ml @ 1,000 mls/hr Q1H PRN 02/24/17 08:19 02/24/17 14:18 DC Sodium Chloride (Normal Saline Flush) 10 ml 1X PRN PRN 02/21/17 08:15 02/22/17 08:14 DC Vancomycin HCl 1 each 1X ONCE 02/26/17 05:00 02/26/17 05:01 Vancomycin HCl (Vanco Per Pharmacy) 1 each PRN DAILY PRN 02/18/17 07:30 02/25/17 09:28 1 EACH Vancomycin HCl 1.5 gm/Sodium Chloride 500 ml @ 250 mls/hr 1X ONCE 02/18/17 14:30 02/18/17 16:29 DC 02/18/17 14:43 250 MLS/HR Vancomycin HCl 500 mg/Sodium Chloride 100 ml @ 100 mls/hr QMWF 02/21/17 16:00 02/24/17 16:10 100 MLS/HR Vancomycin HCl 750 mg/Sodium Chloride 250 ml @ 250 mls/hr Q24H 02/13/17 20:00 02/14/17 07:57 DC 02/13/17 20:34 250 MLS/HR Vancomycin HCl 1 gm/Sodium Chloride 250 ml @ 250 mls/hr 1X ONCE 02/12/17 19:30 02/12/17 20:29 DC 02/12/17 20:00 250 MLS/HR Vecuronium [place] (Norcuron Bolus) 5 mg PRN Q30MIN PRN 02/13/17 11:15 02/25/17 09:25 DC Warfarin Sodium (Coumadin Per Pharmacy) 1 each PRN DAILY PRN 02/13/17 11:45 Cancel Lab Laboratory Tests Test 02/24/17 12:40 02/25/17 00:00 02/25/17 04:59 02/25/17 06:23 O2 Saturation 95 % (92-99) Arterial Blood pH 7.44 (7.35-7.45) Arterial Blood pCO2 at Patient Temp 39 mmHg (35-46) Arterial Blood pO2 at Patient Temp 82 mmHg (75-108) Arterial Blood HCO3 25 mmol/L (21-28) Arterial Blood Base Excess 1 mmol/L (-3-3) FiO2 35 Glucose (Fingerstick) 149 mg/dL (70-99) 135 mg/dL (70-99) White Blood Count 29.2 x10^3/uL (4.0-11.0) Red Blood Count 2.08 x10^6/uL (3.50-5.40) Hemoglobin 6.5 g/dL (12.0-15.5) Hematocrit 19.4 % (36.0-47.0) Mean Corpuscular Volume 94 fL (79-100) Mean Corpuscular Hemoglobin 32 pg (25-35) Mean Corpuscular Hemoglobin Concent 34 g/dL (31-37) Red Cell Distribution Width 14.4 % (11.5-14.5) Platelet Count 162 x10^3/uL (140-400) Neutrophils (%) (Auto) 93 % (31-73) Lymphocytes (%) (Auto) 2 % (24-48) Monocytes (%) (Auto) 5 % (0-9) Eosinophils (%) (Auto) 0 % (0-3) Basophils (%) (Auto) 0 % (0-3) Neutrophils # (Auto) 27.2 x10^3uL (1.8-7.7) Lymphocytes # (Auto) 0.5 x10^3/uL (1.0-4.8) Monocytes # (Auto) 1.4 x10^3/uL (0.0-1.1) Eosinophils # (Auto) 0.0 x10^3/uL (0.0-0.7) Basophils # (Auto) 0.1 x10^3/uL (0.0-0.2) Sodium Level 136 mmol/L (136-145) Potassium Level 4.6 mmol/L (3.5-5.1) Chloride Level 97 mmol/L (98-107) Carbon Dioxide Level 29 mmol/L (21-32) Anion Gap 10 (6-14) Blood Urea Nitrogen 101 mg/dL (7-20) Creatinine 3.7 mg/dL (0.6-1.0) Estimated GFR (Cockcroft-Gault) 15.4 Glucose Level 141 mg/dL (70-99) Calcium Level 7.8 mg/dL (8.5-10.1) ELIAZAR GREER MD Feb 25, 2017 09:39
[2017-02-25] MEDS: fentaNYL PF VIAL 100 MCG/2 ML VIAL IV PRN ×2 (09:58→19:37)
--- NOTE | 2017-02-25 11:11 | PDOC ---
PULMONARY PROGRESS NOTES Subjective on vent, remains unresponsive Vitals Vital Signs Date Time Temp Pulse Resp B/P (MAP) Pulse Ox O2 Delivery O2 Flow Rate FiO2 02/25/17 10:32 16 99 Nasal Cannula 2.0 02/25/17 10:21 98.1 84 151/75 98.1 Comments ros, discussed w rn, as mentioned as above other sys otherwise neg HEENT: Other (nc at perrl, nose clear, orally intubated. neck no lap thyromegaly) Lungs: Other (decrease bs) Cardiovascular: S1, S2 Abdomen: Soft, Non-tender, Other (no mass) Extremities: Other (trace edema) Skin: Warm, Dry Labs Laboratory Tests Test 02/24/17 06:00 02/24/17 12:40 02/25/17 00:00 02/25/17 04:59 White Blood Count 50.5 x10^3/uL (4.0-11.0) 29.2 x10^3/uL (4.0-11.0) Red Blood Count 2.00 x10^6/uL (3.50-5.40) 2.08 x10^6/uL (3.50-5.40) Hemoglobin 6.2 g/dL (12.0-15.5) 6.5 g/dL (12.0-15.5) Hematocrit 19.0 % (36.0-47.0) 19.4 % (36.0-47.0) Mean Corpuscular Volume 95 fL (79-100) 94 fL (79-100) Mean Corpuscular Hemoglobin 31 pg (25-35) 32 pg (25-35) Mean Corpuscular Hemoglobin Concent 33 g/dL (31-37) 34 g/dL (31-37) Red Cell Distribution Width 15.4 % (11.5-14.5) 14.4 % (11.5-14.5) Platelet Count 192 x10^3/uL (140-400) 162 x10^3/uL (140-400) Neutrophils (%) (Auto) 95 % (31-73) 93 % (31-73) Lymphocytes (%) (Auto) 2 % (24-48) 2 % (24-48) Monocytes (%) (Auto) 2 % (0-9) 5 % (0-9) Eosinophils (%) (Auto) 0 % (0-3) 0 % (0-3) Basophils (%) (Auto) 1 % (0-3) 0 % (0-3) Neutrophils # (Auto) 48.0 x10^3uL (1.8-7.7) 27.2 x10^3uL (1.8-7.7) Lymphocytes # (Auto) 1.0 x10^3/uL (1.0-4.8) 0.5 x10^3/uL (1.0-4.8) Monocytes # (Auto) 1.1 x10^3/uL (0.0-1.1) 1.4 x10^3/uL (0.0-1.1) Eosinophils # (Auto) 0.0 x10^3/uL (0.0-0.7) 0.0 x10^3/uL (0.0-0.7) Basophils # (Auto) 0.3 x10^3/uL (0.0-0.2) 0.1 x10^3/uL (0.0-0.2) Sodium Level 132 mmol/L (136-145) 136 mmol/L (136-145) Potassium Level 5.2 mmol/L (3.5-5.1) 4.6 mmol/L (3.5-5.1) Chloride Level 96 mmol/L (98-107) 97 mmol/L (98-107) Carbon Dioxide Level 23 mmol/L (21-32) 29 mmol/L (21-32) Anion Gap 13 (6-14) 10 (6-14) Blood Urea Nitrogen 160 mg/dL (7-20) 101 mg/dL (7-20) Creatinine 5.7 mg/dL (0.6-1.0) 3.7 mg/dL (0.6-1.0) Estimated GFR (Cockcroft-Gault) 9.4 15.4 Glucose Level 183 mg/dL (70-99) 141 mg/dL (70-99) Calcium Level 8.0 mg/dL (8.5-10.1) 7.8 mg/dL (8.5-10.1) O2 Saturation 95 % (92-99) Arterial Blood pH 7.44 (7.35-7.45) Arterial Blood pCO2 at Patient Temp 39 mmHg (35-46) Arterial Blood pO2 at Patient Temp 82 mmHg (75-108) Arterial Blood HCO3 25 mmol/L (21-28) Arterial Blood Base Excess 1 mmol/L (-3-3) FiO2 35 Glucose (Fingerstick) 149 mg/dL (70-99) Test 02/25/17 06:23 Glucose (Fingerstick) 135 mg/dL (70-99) Laboratory Tests Test 02/24/17 12:40 02/25/17 00:00 02/25/17 04:59 02/25/17 06:23 O2 Saturation 95 % (92-99) Arterial Blood pH 7.44 (7.35-7.45) Arterial Blood pCO2 at Patient Temp 39 mmHg (35-46) Arterial Blood pO2 at Patient Temp 82 mmHg (75-108) Arterial Blood HCO3 25 mmol/L (21-28) Arterial Blood Base Excess 1 mmol/L (-3-3) FiO2 35 Glucose (Fingerstick) 149 mg/dL (70-99) 135 mg/dL (70-99) White Blood Count 29.2 x10^3/uL (4.0-11.0) Red Blood Count 2.08 x10^6/uL (3.50-5.40) Hemoglobin 6.5 g/dL (12.0-15.5) Hematocrit 19.4 % (36.0-47.0) Mean Corpuscular Volume 94 fL (79-100) Mean Corpuscular Hemoglobin 32 pg (25-35) Mean Corpuscular Hemoglobin Concent 34 g/dL (31-37) Red Cell Distribution Width 14.4 % (11.5-14.5) Platelet Count 162 x10^3/uL (140-400) Neutrophils (%) (Auto) 93 % (31-73) Lymphocytes (%) (Auto) 2 % (24-48) Monocytes (%) (Auto) 5 % (0-9) Eosinophils (%) (Auto) 0 % (0-3) Basophils (%) (Auto) 0 % (0-3) Neutrophils # (Auto) 27.2 x10^3uL (1.8-7.7) Lymphocytes # (Auto) 0.5 x10^3/uL (1.0-4.8) Monocytes # (Auto) 1.4 x10^3/uL (0.0-1.1) Eosinophils # (Auto) 0.0 x10^3/uL (0.0-0.7) Basophils # (Auto) 0.1 x10^3/uL (0.0-0.2) Sodium Level 136 mmol/L (136-145) Potassium Level 4.6 mmol/L (3.5-5.1) Chloride Level 97 mmol/L (98-107) Carbon Dioxide Level 29 mmol/L (21-32) Anion Gap 10 (6-14) Blood Urea Nitrogen 101 mg/dL (7-20) Creatinine 3.7 mg/dL (0.6-1.0) Estimated GFR (Cockcroft-Gault) 15.4 Glucose Level 141 mg/dL (70-99) Calcium Level 7.8 mg/dL (8.5-10.1) Medications Active Scripts Medications Dose Route/Sig Max Daily Dose Days Date Category Latuda (Lurasidone Hcl) 20 Mg Tablet 20 Mg PO AFTRNOON 02/12/17 Reported Remeron (Mirtazapine) 15 Mg Tablet 1 Tab PO QHS 02/12/17 Reported Oxybutynin Chloride Er (Oxybutynin Chloride) 10 Mg Tab.er.24 1 Tab PO DAILY 02/12/17 Reported Multivitamins (Multivitamin) 1 Each Tablet 1 Tab PO DAILY 02/12/17 Reported Latuda (Lurasidone Hcl) 20 Mg Tablet 10 Mg PO AFTRNOON 02/12/17 Reported Lorazepam 0.5 Mg Tablet 1 Tab PO QEVNG 02/12/17 Reported Duoneb 0.5-3(2.5) Mg/3 Ml (Albuterol/Ipratropium) 3 Ml Ampul.neb 3 Ml NEB BID 02/12/17 Reported Duoneb 0.5-3(2.5) Mg/3 Ml (Albuterol/Ipratropium) 3 Ml Ampul.neb 3 Ml NEB Q4H PRN 02/12/17 Reported Calcium Carbonate 500 Mg Tablet 1,000 Mg PO Q4HRS PRN 02/12/17 Reported Nicotine Gum (Nicotine Polacrilex) 4 Mg Gum 4 Mg BC 02/12/17 Reported Milk Of Magnesia (Magnesium Hydroxide) 400 Mg/5 Ml Oral.susp 400 Mg PO Q3DAYS PRN 02/12/17 Reported Milk Of Magnesia (Magnesium Hydroxide) 400 Mg/5 Ml Oral.susp 400 Mg PO Q3DAYS PRN 02/12/17 Reported Lorazepam 1 Mg Tablet 1 Tab PO Q12HR PRN 02/12/17 Reported Ibuprofen 400 Mg Tablet 200 Mg PO Q8HRS PRN 02/12/17 Reported Cough Drops (Eucalyptus Oil/Menthol) 7 Mg Lozenge 7 Mg MM Q4HRS PRN 02/12/17 Reported Tylenol (Acetaminophen) 325 Mg Tablet 650 Mg PO Q4HRS PRN 02/12/17 Reported [place] ([place]-3 Acid Ethyl Esters) 1 Gm Capsule 1 Cap PO QID 02/12/17 Reported Gabapentin 400 Mg Capsule 400 Mg PO QID 02/12/17 Reported Lorazepam 1 Mg Tablet 1 Tab PO BID 02/12/17 Reported Latuda (Lurasidone Hcl) 60 Mg Tablet 60 Mg PO BID 02/12/17 Reported Advair 100-50 Diskus (Fluticasone/Salmeterol) 1 Each Disk.w.dev 1 Puff IH BID 02/12/17 Reported Acetaminophen 325 Mg Capsule 650 Mg PO BID 02/12/17 Reported Vitamin D (Cholecalciferol (Vitamin D3)) 2,000 Unit Capsule 800 Unit PO DAILY 02/12/17 Reported Comments cxr reviewed 02/25 no INFILTRATES, Impression . 1. Acute respiratory failure, sec to out of hospital arrest 2. Acute toxic/metabolic/ anoxic encephalopathy (pre-dominant) 3. Status post cardiopulmonary arrest. She had asystole. anoxic brain injury 4. Abnormal echocardiogram with ejection fraction of 35%. 5. Hyponatremia, improving 6. Abnormal LFTs secondary to hypoperfusion. 7. Acute renal failure.on HD 8. Shock, combination of cardiogenic,septic/ OFF PRESSOR 9. MRSA bactremia/ sepsis 10. Marked leukocytosis, ?steroids induced vs sepsis vs leukemoid reaction, improving with steroid taper 11. Anemia, Tx today, no bleeding 12. DARYA, HD Plan . cont vent support, vent setting reviewed, prn narcotics transfuse PRBC with HD , follow Hb increase bicarb bath with HD CONTINUE SUPPORT FOR NOW CXR REVIEWD CT HEAD NOTHING NEW NUTRITION VIA TF PROGNOSIS IS POOR FOR MEANINGFUL RECOVERY. LETTER WRITTEN TO COURT / DPOA appointed COURT APPOINTED DPOA TO DO MEETING WITH DR ARAGON FRIDAY. I WOULD RECOMMEND WITHDRAWL OF CARE AND ALLOW NATURAL ANTIBX PER ID TAPER STEROIDS FOLLOW NEURO INPUT D/W RN/RT NEVA FALCON MD Feb 25, 2017 11:10
--- NOTE | 2017-02-25 11:35 | PDOC ---
PROGRESS NOTES Chief Complaint Chief Complaint cardiac arrest, asystole, unknown down time, s/p hypothermia Anoxic encephalopathy, off sedation, no response Normal corrected calcium Oliguric renal OLIGURIC RENAL FAILURE [facility] resident HX schiz by documentation Sepsis with organ failure, needing pressor Thrombocytopenia ANemia, normocytic Hyponatremia Acute precipitous drop hgb History of Present Illness History of Present Illness Pt nonresponsive on vent. OG tube in place for feeding. Rectal tube in place for bowel movements. Rodriguez catheter in place for urination. Cough and gag reflexes present. No startle reflex present. Bleeding at nail beds on fingers of left hand. No bleeding at nail beds on R hand or either lower extremity. Platelet count 162,000 per am labs. Ethics committee consulted on case. Meeting scheduled with judge miladis, and Dr. Dumont on 02/28/2017 to discuss DNR and possible extubation. Vent: AC/16/420/35%/ O2 Sat 997%, PEEP5 Vitals Vitals Vital Signs Date Time Temp Pulse Resp B/P (MAP) Pulse Ox O2 Delivery O2 Flow Rate FiO2 02/25/17 10:32 16 99 Nasal Cannula 2.0 02/25/17 10:21 98.1 84 151/75 98.1 Physical Exam Physical Exam Patient nonresponsive and breathing via ventilator despite discontinuing sedation. No startle reflex or response to verbal or physical stimulation. Yellow urine flowing from rodriguez catheter into bedside bag. Rectal tube in place for bowel evacuation. OG tube in place for feeding. Discoloration (possible bleeding) at nail beds of fingers of left hand. No discoloration on R hand or either extremity. SCDs present. General: Other (On vent, nonresponsive) Heart: Regular rate, Gallops, Other (distant S1/S2) Lungs: Clear, Other Abdomen: Normal bowel sounds, Soft, No tenderness, No hepatosplenomegaly, No masses Extremities: No clubbing, No cyanosis, No edema, Normal pulses, No tenderness/ swelling, Other (Discoloration of nail beds of left hand. Nurse agreed that it appeared to be blood. ) Skin: No breakdown, No significant lesion Labs LABS Laboratory Tests Test 02/24/17 12:40 02/25/17 00:00 02/25/17 04:59 02/25/17 06:23 O2 Saturation 95 % (92-99) Arterial Blood pH 7.44 (7.35-7.45) Arterial Blood pCO2 at Patient Temp 39 mmHg (35-46) Arterial Blood pO2 at Patient Temp 82 mmHg (75-108) Arterial Blood HCO3 25 mmol/L (21-28) Arterial Blood Base Excess 1 mmol/L (-3-3) FiO2 35 Glucose (Fingerstick) 149 mg/dL (70-99) 135 mg/dL (70-99) White Blood Count 29.2 x10^3/uL (4.0-11.0) Red Blood Count 2.08 x10^6/uL (3.50-5.40) Hemoglobin 6.5 g/dL (12.0-15.5) Hematocrit 19.4 % (36.0-47.0) Mean Corpuscular Volume 94 fL (79-100) Mean Corpuscular Hemoglobin 32 pg (25-35) Mean Corpuscular Hemoglobin Concent 34 g/dL (31-37) Red Cell Distribution Width 14.4 % (11.5-14.5) Platelet Count 162 x10^3/uL (140-400) Neutrophils (%) (Auto) 93 % (31-73) Lymphocytes (%) (Auto) 2 % (24-48) Monocytes (%) (Auto) 5 % (0-9) Eosinophils (%) (Auto) 0 % (0-3) Basophils (%) (Auto) 0 % (0-3) Neutrophils # (Auto) 27.2 x10^3uL (1.8-7.7) Lymphocytes # (Auto) 0.5 x10^3/uL (1.0-4.8) Monocytes # (Auto) 1.4 x10^3/uL (0.0-1.1) Eosinophils # (Auto) 0.0 x10^3/uL (0.0-0.7) Basophils # (Auto) 0.1 x10^3/uL (0.0-0.2) Sodium Level 136 mmol/L (136-145) Potassium Level 4.6 mmol/L (3.5-5.1) Chloride Level 97 mmol/L (98-107) Carbon Dioxide Level 29 mmol/L (21-32) Anion Gap 10 (6-14) Blood Urea Nitrogen 101 mg/dL (7-20) Creatinine 3.7 mg/dL (0.6-1.0) Estimated GFR (Cockcroft-Gault) 15.4 Glucose Level 141 mg/dL (70-99) Calcium Level 7.8 mg/dL (8.5-10.1) Review of Systems Review of Systems Unable to complete ROS due to patient's altered mental status and nonresponsiveness. 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 Continue with mechanical ventilation and reevaluate per outcome of meeting on 02/28/17. 2. Continue with SCDs 3. Continue with nutrition through OG tube 4. Continue with urine evacuation via rodriguez catheter and proper rodriguez care. 5. Recheck labs in am. Problems: Comment Review of Relevant I have reviewed the following items reji (where applicable) has been applied. Labs Laboratory Tests Test 02/24/17 06:00 02/24/17 12:40 02/25/17 00:00 02/25/17 04:59 White Blood Count 50.5 x10^3/uL (4.0-11.0) 29.2 x10^3/uL (4.0-11.0) Red Blood Count 2.00 x10^6/uL (3.50-5.40) 2.08 x10^6/uL (3.50-5.40) Hemoglobin 6.2 g/dL (12.0-15.5) 6.5 g/dL (12.0-15.5) Hematocrit 19.0 % (36.0-47.0) 19.4 % (36.0-47.0) Mean Corpuscular Volume 95 fL (79-100) 94 fL (79-100) Mean Corpuscular Hemoglobin 31 pg (25-35) 32 pg (25-35) Mean Corpuscular Hemoglobin Concent 33 g/dL (31-37) 34 g/dL (31-37) Red Cell Distribution Width 15.4 % (11.5-14.5) 14.4 % (11.5-14.5) Platelet Count 192 x10^3/uL (140-400) 162 x10^3/uL (140-400) Neutrophils (%) (Auto) 95 % (31-73) 93 % (31-73) Lymphocytes (%) (Auto) 2 % (24-48) 2 % (24-48) Monocytes (%) (Auto) 2 % (0-9) 5 % (0-9) Eosinophils (%) (Auto) 0 % (0-3) 0 % (0-3) Basophils (%) (Auto) 1 % (0-3) 0 % (0-3) Neutrophils # (Auto) 48.0 x10^3uL (1.8-7.7) 27.2 x10^3uL (1.8-7.7) Lymphocytes # (Auto) 1.0 x10^3/uL (1.0-4.8) 0.5 x10^3/uL (1.0-4.8) Monocytes # (Auto) 1.1 x10^3/uL (0.0-1.1) 1.4 x10^3/uL (0.0-1.1) Eosinophils # (Auto) 0.0 x10^3/uL (0.0-0.7) 0.0 x10^3/uL (0.0-0.7) Basophils # (Auto) 0.3 x10^3/uL (0.0-0.2) 0.1 x10^3/uL (0.0-0.2) Sodium Level 132 mmol/L (136-145) 136 mmol/L (136-145) Potassium Level 5.2 mmol/L (3.5-5.1) 4.6 mmol/L (3.5-5.1) Chloride Level 96 mmol/L (98-107) 97 mmol/L (98-107) Carbon Dioxide Level 23 mmol/L (21-32) 29 mmol/L (21-32) Anion Gap 13 (6-14) 10 (6-14) Blood Urea Nitrogen 160 mg/dL (7-20) 101 mg/dL (7-20) Creatinine 5.7 mg/dL (0.6-1.0) 3.7 mg/dL (0.6-1.0) Estimated GFR (Cockcroft-Gault) 9.4 15.4 Glucose Level 183 mg/dL (70-99) 141 mg/dL (70-99) Calcium Level 8.0 mg/dL (8.5-10.1) 7.8 mg/dL (8.5-10.1) O2 Saturation 95 % (92-99) Arterial Blood pH 7.44 (7.35-7.45) Arterial Blood pCO2 at Patient Temp 39 mmHg (35-46) Arterial Blood pO2 at Patient Temp 82 mmHg (75-108) Arterial Blood HCO3 25 mmol/L (21-28) Arterial Blood Base Excess 1 mmol/L (-3-3) FiO2 35 Glucose (Fingerstick) 149 mg/dL (70-99) Test 02/25/17 06:23 Glucose (Fingerstick) 135 mg/dL (70-99) Laboratory Tests Test 02/24/17 12:40 02/25/17 00:00 02/25/17 04:59 02/25/17 06:23 O2 Saturation 95 % (92-99) Arterial Blood pH 7.44 (7.35-7.45) Arterial Blood pCO2 at Patient Temp 39 mmHg (35-46) Arterial Blood pO2 at Patient Temp 82 mmHg (75-108) Arterial Blood HCO3 25 mmol/L (21-28) Arterial Blood Base Excess 1 mmol/L (-3-3) FiO2 35 Glucose (Fingerstick) 149 mg/dL (70-99) 135 mg/dL (70-99) White Blood Count 29.2 x10^3/uL (4.0-11.0) Red Blood Count 2.08 x10^6/uL (3.50-5.40) Hemoglobin 6.5 g/dL (12.0-15.5) Hematocrit 19.4 % (36.0-47.0) Mean Corpuscular Volume 94 fL (79-100) Mean Corpuscular Hemoglobin 32 pg (25-35) Mean Corpuscular Hemoglobin Concent 34 g/dL (31-37) Red Cell Distribution Width 14.4 % (11.5-14.5) Platelet Count 162 x10^3/uL (140-400) Neutrophils (%) (Auto) 93 % (31-73) Lymphocytes (%) (Auto) 2 % (24-48) Monocytes (%) (Auto) 5 % (0-9) Eosinophils (%) (Auto) 0 % (0-3) Basophils (%) (Auto) 0 % (0-3) Neutrophils # (Auto) 27.2 x10^3uL (1.8-7.7) Lymphocytes # (Auto) 0.5 x10^3/uL (1.0-4.8) Monocytes # (Auto) 1.4 x10^3/uL (0.0-1.1) Eosinophils # (Auto) 0.0 x10^3/uL (0.0-0.7) Basophils # (Auto) 0.1 x10^3/uL (0.0-0.2) Sodium Level 136 mmol/L (136-145) Potassium Level 4.6 mmol/L (3.5-5.1) Chloride Level 97 mmol/L (98-107) Carbon Dioxide Level 29 mmol/L (21-32) Anion Gap 10 (6-14) Blood Urea Nitrogen 101 mg/dL (7-20) Creatinine 3.7 mg/dL (0.6-1.0) Estimated GFR (Cockcroft-Gault) 15.4 Glucose Level 141 mg/dL (70-99) Calcium Level 7.8 mg/dL (8.5-10.1) Microbiology 02/15/17 Blood Culture - Final, Complete NO GROWTH AFTER 5 DAYS 02/12/17 Urine Culture - Final, Complete 02/12/17 Urine Culture Result 1 (ELIZABETH) - Final, Complete Medications Current Medications Calcium Chloride 1,000 mg 1X ONCE IV Last administered on 02/12/17 15:35; Start 02/12/17 at 16:00; Stop 02/12/17 at 16:35; Status DC Dextrose (Dextrose 50%-Water Syringe) 25 gm 1X ONCE IV Last administered on 15:33; Start 02/12/17 at 16:00; Stop 02/12/17 at 16:35; Status DC Sodium Bicarbonate 50 meq 1X ONCE IV Last administered on 02/12/17 15:35; Start 02/12/17 at 16:00; Stop 02/12/17 at 16:35; Status DC Furosemide (Lasix) 40 mg 1X ONCE IVP Last administered on 02/12/17 16:42; Start 02/12/17 at 16:30; Stop 02/12/17 at 16:35; Status DC Sodium Chloride 1,000 ml @ 1,000 mls/hr Q1H IV Last administered on 02/12/17 15:50; Start 02/12/17 at 16:57; Stop 02/13/17 at 07:23; Status DC Fentanyl Citrate (Fentanyl 2ml Vial) 25 mcg PRN Q30MIN PRN IV SED; Start at 17:00; Stop 02/25/17 at 09:24; Status DC Lorazepam (Ativan) 1 mg PRN Q30MIN PRN IV SEDATION; Start 02/12/17 at 17:00 Fentanyl Citrate 30 ml @ 2.5 mls/hr CONT PRN PRN IV IVF Last administered on 03:27; Start 02/12/17 at 17:00; Stop 02/20/17 at 10:36; Status DC Propofol 100 ml @ 0 mls/hr CONT PRN IV SEE I/O RECORD; Start 02/12/17 at 17:00; Stop 02/20/17 at 10:36; Status DC Vecuronium [place] (Norcuron Bolus) DOSE AT 0.1 mg/kg PRN Q30MIN PRN IV SHIVERING Last administered on 02/12/17 19:46; Start 02/12/17 at 17:00; Stop 02/13 at 11:01; Status DC Meperidine HCl (Demerol) 12.5 mg PRN Q30MIN PRN IV SHIVERING; Start 02/12/17 at 17:00; Stop 02/25/17 at 09:24; Status DC Multi-Ingred Cream/Lotion/Oil/ Oint (Artificial Tears Eye Oint) 1 silvestre PRN Q6HRS PRN OU 0.5 INCH FOR DRY EYE Last administered on 02/23/17 07:34; Start at 17:00 Famotidine (Pepcid) 20 mg BID IVP Last administered on 02/14/17 10:47; Start at 09:00; Stop 02/14/17 at 16:23; Status DC Aspirin (Aspirin) 300 mg DAILY WI Last administered on 02/25/17 08:27; Start 02/13/17 at 09:00 Sodium Chloride (Normal Saline Flush) 3 ml QSHIFT PRN IV AFTER MEDS AND BLOOD DRAWS; Start 02/12/17 at 17:00 Acetaminophen (Tylenol) 650 mg Q6HRS NG Last administered on 02/13/17 05:51; Start 02/12/17 at 18:00; Stop 02/13/17 at 17:59; Status DC Acetaminophen (Acetaminophen Supp) 650 mg PRN Q6HRS PRN WI MILD PAIN / TEMP; Start 02/13/17 at 17:00 Acetaminophen (Tylenol) 650 mg PRN Q6HRS PRN NG MILD PAIN / TEMP Last administered on 02/23/17 13:02; Start 02/13/17 at 17:00 Info 1 ea DAILY PRN MC PER PROTOCOL; Start 02/14/17 at 17:00 Sodium Chloride 500 ml @ 500 mls/hr 1X ONCE IV Last administered on 02/12/17 16:30; Start 02/12/17 at 17:15; Stop 02/12/17 at 18:14; Status DC Sodium Chloride 500 ml @ 500 mls/hr 1X ONCE IV Last administered on 02/12/17 16:50; Start 02/12/17 at 17:15; Stop 02/12/17 at 18:14; Status DC Sodium Chloride 1,000 ml @ 100 mls/hr Q10H IV Last administered on 02/13/17 06 :36; Start 02/12/17 at 19:00; Stop 02/13/17 at 10:51; Status DC Famotidine (Pepcid) 20 mg 1X ONCE PO Last administered on 02/12/17 19:57; Start 02/12/17 at 17:30; Stop 02/12/17 at 17:34; Status DC Methylprednisolone Sodium Succinate (SOLU-Medrol 40MG VIAL) 100 mg TID IV Last administered on 02/14/17 11:01; Start 02/12/17 at 18:00; Stop 02/14/17 at 12:00; Status DC Sodium Chloride 1,000 ml @ 1,000 mls/hr 1X ONCE IV Last administered on 19:31; Start 02/12/17 at 18:15; Stop 02/12/17 at 19:14; Status DC Piperacillin Sod/ Tazobactam Sod (Zosyn Per Pharmacy) 1 each PRN DAILY PRN MC SEE COMMENTS; Start 02/12/17 at 19:15; Stop 02/18/17 at 07:22; Status DC Vancomycin HCl (Vanco Per Pharmacy) 1 each PRN DAILY PRN MC SEE COMMENTS Last administered on 02/13/17 16:50; Start 02/12/17 at 19:15; Stop 02/14/17 at 07:57; Status DC Piperacillin Sod/ Tazobactam Sod 3.375 gm/Sodium Chloride 50 ml @ 100 mls/hr Q6HRS IV Last administered on 02/15/17 05:58; Start 02/12/17 at 19:30; Stop 02/15 at 09:37; Status DC Vancomycin HCl 1 gm/Sodium Chloride 250 ml @ 250 mls/hr 1X ONCE IV Last administered on 02/12/17 20:00; Start 02/12/17 at 19:30; Stop 02/12/17 at 20:29; Status DC Sodium Bicarbonate 50 meq 1X ONCE IV Last administered on 02/12/17 19:59; Start 02/12/17 at 19:30; Stop 02/12/17 at 19:31; Status DC Norepinephrine Bitartrate 250 ml @ 0 mls/hr CONT PRN IV SEE I/O RECORD Last administered on 02/16/17 07:18; Start 02/12/17 at 19:30; Stop 02/20/17 at 10:36 ; Status DC Norepinephrine Bitartrate 250 ml @ As Directed STK-MED ONCE IV ; Start 02/12/17 at 19:25; Stop 02/12/17 at 19:26; Status DC Vancomycin HCl 750 mg/Sodium Chloride 250 ml @ 250 mls/hr Q24H IV Last administered on 02/13/17 20:34; Start 02/13/17 at 20:00; Stop 02/14/17 at 07:57; Status DC Vancomycin HCl 1 each 1X ONCE MC ; Start 02/14/17 at 19:30; Stop 02/14/17 at 19: 31; Status Cancel Sodium Chloride 1,000 ml @ 1,000 mls/hr 1X ONCE IV Last administered on 05:05; Start 02/13/17 at 04:45; Stop 02/13/17 at 05:44; Status DC Sodium Chloride 1,000 ml @ 1,000 mls/hr 1X ONCE IV Last administered on 05:35; Start 02/13/17 at 05:30; Stop 02/13/17 at 06:29; Status DC Magnesium Sulfate/ Dextrose 50 ml @ 25 mls/hr PRN DAILY PRN IV for Mag < 1.7 on am labs; Start 02/13/17 at 10:45 Dextrose/Sodium Chloride 1,000 ml @ 75 mls/hr [id number] IV Last administered on 02/15/17 01:52; Start 02/13/17 at 11:00; Stop 02/15/17 at 08:52; Status DC Vecuronium [place] (Norcuron Bolus) 5 mg PRN Q30MIN PRN IV SHIVERING; Start 02/13/17 at 11:15; Stop 02/25/17 at 09:25; Status DC Lidocaine/Sodium Bicarbonate (Buffered Lidocaine 1%) 3 ml 1X ONCE IJ Last administered on 02/13/17 11:40; Start 02/13/17 at 11:15; Stop 02/13/17 at 11:26; Status DC Heparin Sodium/ Sodium Chloride 60 unit 1X ONCE IV Last administered on 11:40; Start 02/13/17 at 11:15; Stop 02/13/17 at 11:26; Status DC Lidocaine/Sodium Bicarbonate (Buffered Lidocaine 1%) 20 ml STK-MED ONCE IJ ; Start 02/13/17 at 11:22; Stop 02/13/17 at 11:29; Status DC Heparin Sodium (Porcine) (Heparin Sodium) 2,075 unit 1X ONCE IV Last administered on 02/13/17 12:45; Start 02/13/17 at 11:45; Stop 02/13/17 at 11:56; Status DC Heparin Sodium/ Dextrose 500 ml @ 16.5 mls/hr CONT PRN IV SEE I/O RECORD Last administered on 02/13/17 12:47; Start 02/13/17 at 11:45; Stop 02/14/17 at 13:53; Status DC Heparin Sodium (Porcine) (Heparin Sodium) 1,550 unit PRN Q6HRS PRN IV FOR UFH LEVEL LESS THAN 0.2 Last administered on 02/13/17 20:22; Start 02/13/17 at 11:45 ; Stop 02/14/17 at 13:53; Status DC Heparin Sodium (Porcine) (Heparin Sodium) 800 unit PRN Q6HRS PRN IV FOR UFH LEVEL 0.2 - 0.29 Last administered on 02/14/17 02:34; Start 02/13/17 at 11:45; Stop 02/14/17 at 13:53; Status DC Warfarin Sodium (Coumadin Per Pharmacy) 1 each PRN DAILY PRN MC PER PROTOCOL; Start 02/13/17 at 11:45; Status Cancel Info (Anti-Coagulation Monitoring By Pharmacy) 1 each PRN DAILY PRN MC SEE COMMENTS; Start 02/13/17 at 13:00; Stop 02/14/17 at 16:28; Status DC Calcium Chloride 1,000 mg STK-MED ONCE IV ; Start 02/12/17 at 10:00; Stop at 16:27; Status DC Epinephrine HCl (EPINEPHrine SYRINGE) 1 mg STK-MED ONCE .ROUTE ; Start 02/12/17 at 10:00; Stop 02/13/17 at 16:27; Status DC Dextrose (Dextrose 50%-Water Syringe) 25 gm STK-MED ONCE IV ; Start 02/12/17 at 10:00; Stop 02/13/17 at 16:27; Status DC Sodium Bicarbonate 50 meq STK-MED ONCE .ROUTE ; Start 02/12/17 at 10:00; Stop 02/13/17 at 16:27; Status DC Methylprednisolone Sodium Succinate (SOLU-Medrol 125MG VIAL) 100 mg TID IV Last administered on 02/24/17 08:13; Start 02/14/17 at 18:00; Stop 02/24/17 at 11:24; Status DC Norepinephrine Bitartrate 250 ml @ 0 mls/hr CONT PRN IV SEE I/O RECORD; Start 02/14/17 at 15:30; Status Cancel Famotidine (Pepcid) 20 mg DAILY IVP Last administered on 02/25/17 08:29; Start 02/15/17 at 09:00 Amino Acids/ Glycerin/ Electrolytes 1,000 ml @ 80 mls/hr [id number] IV Last administered on 02/15/17 09:32; Start 02/15/17 at 08:45; Stop 02/15/17 at 15:14; Status DC Albumin Human 100 ml @ 100 mls/hr 1X ONCE IV Last administered on 02/15/17 09 :30; Start 02/15/17 at 08:45; Stop 02/15/17 at 09:44; Status DC Furosemide (Lasix) 40 mg 1X ONCE IVP ; Start 02/15/17 at 08:45; Stop 02/15/17 at 09:18; Status DC Piperacillin Sod/ Tazobactam Sod 2.25 gm/Sodium Chloride 50 ml @ 100 mls/hr Q6HRS IV Last administered on 02/16/17 05:52; Start 02/15/17 at 12:00; Stop 03/25 at 09:17; Status DC Daptomycin 340 mg/ Sodium Chloride 50 ml @ 100 mls/hr ONCE ONCE IV Last administered on 02/15/17 11:15; Start 02/15/17 at 11:15; Stop 02/15/17 at 11:44; Status DC Dextrose/Sodium Chloride 1,000 ml @ 40 mls/hr Q24H IV Last administered on 21:11; Start 02/15/17 at 15:15 Lidocaine/Sodium Bicarbonate (Buffered Lidocaine 1%) 3 ml 1X ONCE IJ Last administered on 02/15/17 16:00; Start 02/15/17 at 15:45; Stop 02/15/17 at 15:46; Status DC Heparin Sodium/ Sodium Chloride 6,000 unit 1X ONCE IV ; Start 02/15/17 at 15:45 ; Stop 02/15/17 at 15:46; Status DC Sodium Chloride 1,000 ml @ 1,000 mls/hr Q1H PRN IV hypotension; Start 02/16/17 at 06:38; Stop 02/16/17 at 12:37; Status DC Info (PHARMACY MONITORING -- do not chart) 1 each PRN DAILY PRN MC SEE COMMENTS ; Start 02/16/17 at 06:45; Stop 02/22/17 at 07:49; Status DC Info (PHARMACY MONITORING -- do not chart) 1 each PRN DAILY PRN MC SEE COMMENTS ; Start 02/16/17 at 06:45; Stop 02/16/17 at 09:19; Status DC Info (PHARMACY MONITORING -- do not chart) 1 each PRN DAILY PRN MC SEE COMMENTS ; Start 02/16/17 at 06:45; Stop 02/16/17 at 09:19; Status DC Albumin Human 100 ml @ 100 mls/hr 1X ONCE IV Last administered on 02/16/17 07:18; Start 02/16/17 at 07:00; Stop 02/16/17 at 07:59; Status DC Piperacillin Sod/ Tazobactam Sod 2.25 gm/Sodium Chloride 50 ml @ 100 mls/hr Q8HRS IV Last administered on 02/18/17 05:55; Start 02/16/17 at 14:00; Stop at 07:22; Status DC Daptomycin 340 mg/ Sodium Chloride 50 ml @ 100 mls/hr QODAY IV Last administered on 02/17/17 12:22; Start 02/17/17 at 09:00; Stop 02/18/17 at 07:22 ; Status DC Sodium Chloride 1,000 ml @ 1,000 mls/hr Q1H PRN IV hypotension; Start 02/17/17 at 08:30; Stop 02/17/17 at 16:00; Status DC Albumin Human 200 ml @ 200 mls/hr 1X PRN PRN IV Hypotension; Start 02/17/17 at 08:30; Stop 02/17/17 at 16:00; Status DC Sodium Chloride 1,000 ml @ 400 mls/hr Q2H30M PRN IV PATENCY; Start 02/17/17 at 08:30; Stop 02/17/17 at 16:00; Status DC Info (PHARMACY MONITORING -- do not chart) 1 each PRN DAILY PRN MC SEE COMMENTS ; Start 02/17/17 at 08:30; Status UNV Info (PHARMACY MONITORING -- do not chart) 1 each PRN DAILY PRN MC SEE COMMENTS ; Start 02/17/17 at 08:30; Status UNV Heparin Sodium (Porcine) (Heparin Sq) 5,000 unit Q8HRS SQ Last administered on 02/22/17 05:49; Start 02/17/17 at 14:00; Stop 02/22/17 at 14:24; Status DC Bisacodyl (Dulcolax Supp) 10 mg PRN DAILY PRN WI CONSTIPATION; Start 02/17/17 at 15:00 Polyethylene Glycol (miraLAX PACKET) 17 gm PRN DAILY PRN FT CONSTIPATION; Start 02/17/17 at 15:00 Levetiracetam 500 mg/Sodium Chloride 100 ml @ 400 mls/hr Q12HR IV Last administered on 02/25/17 08:28; Start 02/17/17 at 21:00 Vancomycin HCl (Vanco Per Pharmacy) 1 each PRN DAILY PRN MC SEE COMMENTS Last administered on 02/25/17 09:28; Start 02/18/17 at 07:30 Vancomycin HCl 1.5 gm/Sodium Chloride 500 ml @ 250 mls/hr 1X ONCE IV Last administered on 02/18/17 14:43; Start 02/18/17 at 14:30; Stop 02/18/17 at 16:29 ; Status DC Vancomycin HCl 1 each 1X ONCE MC Last administered on 02/20/17 05:00; Start 02/20/17 at 05:00; Stop 02/20/17 at 05:01; Status DC Sodium Chloride 1,000 ml @ 1,000 mls/hr Q1H PRN IV hypotension; Start 02/19/17 at 09:08; Stop 02/19/17 at 15:07; Status DC Albumin Human 200 ml @ 200 mls/hr 1X PRN PRN IV Hypotension; Start 02/19/17 at 09:15; Stop 02/19/17 at 15:14; Status DC Sodium Chloride 1,000 ml @ 400 mls/hr Q2H30M PRN IV PATENCY; Start 02/19/17 at 09:08; Stop 02/19/17 at 21:07; Status DC Info (PHARMACY MONITORING -- do not chart) 1 each PRN DAILY PRN MC SEE COMMENTS ; Start 02/19/17 at 09:15; Stop 02/19/17 at 09:17; Status DC Info (PHARMACY MONITORING -- do not chart) 1 each PRN DAILY PRN MC SEE COMMENTS ; Start 02/19/17 at 09:15; Stop 02/20/17 at 12:35; Status DC Vancomycin HCl 500 mg/Sodium Chloride 100 ml @ 100 mls/hr QMWF IV Last administered on 02/24/17 16:10; Start 02/21/17 at 16:00 Sodium Chloride 1,000 ml @ 1,000 mls/hr Q1H PRN IV hypotension; Start 02/21/17 at 08:14; Stop 02/21/17 at 14:13; Status DC Diphenhydramine HCl (Benadryl) 25 mg 1X PRN PRN IV ITCHING; Start 02/21/17 at 08:15; Stop 02/22/17 at 08:14; Status DC Diphenhydramine HCl (Benadryl) 25 mg 1X PRN PRN IV ITCHING; Start 02/21/17 at 08:15; Stop 02/22/17 at 08:14; Status DC Sodium Chloride (Normal Saline Flush) 10 ml 1X PRN PRN IV AP catheter pack; Start 02/21/17 at 08:15; Stop 02/22/17 at 08:14; Status DC Sodium Chloride (Normal Saline Flush) 10 ml 1X PRN PRN IV STAVE MACHINE TENDER catheter pack; Start 02/21/17 at 08:15; Stop 02/22/17 at 08:14; Status DC Sodium Chloride 1,000 ml @ 400 mls/hr Q2H30M PRN IV PATENCY; Start 02/21/17 at 08:14; Stop 02/21/17 at 20:13; Status DC Info (PHARMACY MONITORING -- do not chart) 1 each PRN DAILY PRN MC SEE COMMENTS ; Start 02/21/17 at 08:15; Stop 02/24/17 at 08:29; Status DC Sodium Chloride 1,000 ml @ 1,000 mls/hr Q1H PRN IV hypotension; Start 02/24/17 at 08:19; Stop 02/24/17 at 14:18; Status DC Albumin Human 200 ml @ 200 mls/hr 1X PRN PRN IV Hypotension Last administered on 02/24/17t 10:12; Start 02/24/17 at 08:30; Stop 02/24/17 at 14:29; Status DC Acetaminophen (Tylenol) 500 mg 1X PRN PRN PO MILD PAIN / TEMP; Start 02/24/17 at 08:30; Stop 02/25/17 at 08:29; Status DC Diphenhydramine HCl (Benadryl) 25 mg 1X PRN PRN IV ITCHING; Start 02/24/17 at 08:30; Stop 02/25/17 at 08:29; Status DC Diphenhydramine HCl (Benadryl) 25 mg 1X PRN PRN IV ITCHING; Start 02/24/17 at 08:30; Stop 02/25/17 at 08:29; Status DC Labetalol HCl (Normodyne) 10 mg PRN Q1HR PRN IVP SBP > 180; Start 02/24/17 at 08:30; Stop 02/25/17 at 08:29; Status DC Info (PHARMACY MONITORING -- do not chart) 1 each PRN DAILY PRN MC SEE COMMENTS ; Start 02/24/17 at 08:30 Albumin Human 200 ml @ 100 mls/hr 1X ONCE IV Last administered on 02/24/17 09:51; Start 02/24/17 at 09:45; Stop 02/24/17 at 11:44; Status DC Methylprednisolone Sodium Succinate (SOLU-Medrol 125MG VIAL) 50 mg BID IV Last administered on 02/25/17 08:28; Start 02/24/17 at 21:00; Stop 02/25/17 at 11:12 ; Status DC Fentanyl Citrate (Fentanyl 2ml Vial) 50 mcg 1X ONCE IM ; Start 02/24/17 at 11: 30; Stop 02/24/17 at 11:31; Status Cancel Fentanyl Citrate 30 ml @ 0 mls/hr CONT PRN PRN IV PROTOCOL; Start 02/24/17 at 11:30; Stop 02/24/17 at 16:18; Status DC Fentanyl Citrate (Fentanyl 2ml Vial) 50 mcg 1X ONCE IV Last administered on 12:57; Start 02/24/17 at 13:00; Stop 02/24/17 at 13:01; Status DC Fentanyl Citrate (Fentanyl 2ml Vial) 25 mcg PRN Q4HRS PRN IV PAIN Last administered on 02/25/17 09:58; Start 02/24/17 at 16:30 Vancomycin HCl 1 each 1X ONCE MC ; Start 02/26/17 at 05:00; Stop 02/26/17 at 05 :01 Darbepoetin David (Aranesp) 60 mcg [id number] SQ ; Start 02/25/17 at 21:00 Methylprednisolone Sodium Succinate (SOLU-Medrol 125MG VIAL) 20 mg BID IV ; Start 02/25/17 at 21:00; Status UNV Active Scripts Active Reported Latuda (Lurasidone Hcl) 20 Mg Tablet 20 Mg PO AFTRNOON Remeron (Mirtazapine) 15 Mg Tablet 1 Tab PO QHS Oxybutynin Chloride Er (Oxybutynin Chloride) 10 Mg Tab.er.24 1 Tab PO DAILY Multivitamins (Multivitamin) 1 Each Tablet 1 Tab PO DAILY Latuda (Lurasidone Hcl) 20 Mg Tablet 10 Mg PO AFTRNOON Lorazepam 0.5 Mg Tablet 1 Tab PO QEVNG Duoneb 0.5-3(2.5) Mg/3 Ml (Albuterol/Ipratropium) 3 Ml Ampul.neb 3 Ml NEB BID Duoneb 0.5-3(2.5) Mg/3 Ml (Albuterol/Ipratropium) 3 Ml Ampul.neb 3 Ml NEB Q4H PRN Calcium Carbonate 500 Mg Tablet 1,000 Mg PO Q4HRS PRN Nicotine Gum (Nicotine Polacrilex) 4 Mg Gum 4 Mg BC Milk Of Magnesia (Magnesium Hydroxide) 400 Mg/5 Ml Oral.susp 400 Mg PO Q3DAYS PRN Milk Of Magnesia (Magnesium Hydroxide) 400 Mg/5 Ml Oral.susp 400 Mg PO Q3DAYS PRN Lorazepam 1 Mg Tablet 1 Tab PO Q12HR PRN Ibuprofen 400 Mg Tablet 200 Mg PO Q8HRS PRN Cough Drops (Eucalyptus Oil/Menthol) 7 Mg Lozenge 7 Mg MM Q4HRS PRN Tylenol (Acetaminophen) 325 Mg Tablet 650 Mg PO Q4HRS PRN Lovaza ([place]-3 Acid Ethyl Esters) 1 Gm Capsule 1 Cap PO QID Gabapentin 400 Mg Capsule 400 Mg PO QID Lorazepam 1 Mg Tablet 1 Tab PO BID Latuda (Lurasidone Hcl) 60 Mg Tablet 60 Mg PO BID Advair 100-50 Diskus (Fluticasone/Salmeterol) 1 Each Disk.w.dev 1 Puff IH BID Acetaminophen 325 Mg Capsule 650 Mg PO BID Vitamin D (Cholecalciferol (Vitamin D3)) 2,000 Unit Capsule 800 Unit PO DAILY Vitals/I & O Vital Sign - Last 24 Hours 02/24/17 02/24/17 02/24/17 02/24/17 11:33 12:02 12:09 12:11 Temp 98.1 98.5 98.1 98.5 Pulse 104 98 Resp 25 24 B/P (MAP) 116/64 138/69 (92) Pulse Ox 100 99 O2 Delivery Ventilator Mechanical Ventilator Ventilator 02/24/17 02/24/17 02/24/17 02/24/17 12:57 13:15 13:18 13:49 Pulse 87 Resp 21 B/P (MAP) 142/79 (100) Pulse Ox 99 98 98 98 O2 Delivery Ventilator Ventilator 02/24/17 02/24/17 02/24/17 02/24/17 14:06 15:09 15:19 16:00 Pulse 89 83 82 Resp 20 21 25 B/P (MAP) 144/77 (99) 153/73 (99) 147/75 (99) Pulse Ox 98 100 100 99 O2 Delivery Ventilator Ventilator Ventilator Ventilator 02/24/17 02/24/17 02/24/17 02/24/17 16:18 17:12 17:35 17:59 Pulse 82 85 Resp 23 27 B/P (MAP) 159/73 (101) 145/75 (98) Pulse Ox 99 99 99 O2 Delivery Mechanical Ventilator Ventilator Ventilator Ventilator 02/24/17 02/24/17 02/24/17 02/24/17 19:00 19:00 20:00 20:00 Temp 99.2 99.2 Pulse 90 92 Resp 24 30 B/P (MAP) 140/80 (100) 152/73 (99) Pulse Ox 100 99 99 O2 Delivery Ventilator Ventilator Mechanical Ventilator Ventilator 02/24/17 02/24/17 02/24/17 02/24/17 21:00 21:07 21:50 22:00 Pulse 89 82 Resp 29 25 B/P (MAP) 169/79 (109) 125/71 (89) 136/70 (92) Pulse Ox 99 99 100 O2 Delivery Ventilator Ventilator Ventilator 02/24/17 02/24/17 02/25/17 02/25/17 23:00 23:42 00:00 00:00 Temp 96.8 96.8 Pulse 82 86 Resp 21 24 B/P (MAP) 132/75 (94) 133/74 (93) Pulse Ox 100 99 99 O2 Delivery Ventilator Ventilator Ventilator Mechanical Ventilator 02/25/17 02/25/17 02/25/17 02/25/17 01:00 01:25 02:00 03:00 Pulse 84 90 87 Resp 22 24 27 B/P (MAP) 149/93 (111) 143/70 (94) 140/66 (90) Pulse Ox 100 99 98 99 O2 Delivery Ventilator Ventilator Ventilator Ventilator 02/25/17 02/25/17 02/25/17 02/25/17 03:45 04:00 04:00 05:00 Temp 99.2 99.2 Pulse 90 74 Resp 28 28 B/P (MAP) 145/72 (96) 149/77 (101) Pulse Ox 99 99 97 O2 Delivery Ventilator Mechanical Ventilator Ventilator Ventilator 02/25/17 02/25/17 02/25/17 02/25/17 05:24 06:00 07:00 08:00 Temp 98.3 98.3 Pulse 79 86 85 Resp 18 22 22 B/P (MAP) 150/75 (100) 147/69 (95) 138/75 (96) Pulse Ox 99 99 99 98 O2 Delivery Ventilator Ventilator Ventilator Ventilator 02/25/17 02/25/17 02/25/17 02/25/17 08:00 08:38 08:50 09:00 Temp 98.3 98.4 98.4 98.3 98.4 98.4 Pulse 77 90 81 Resp 18 22 B/P (MAP) 126/68 155/82 155/82 O2 Delivery Mechanical Ventilator 02/25/17 02/25/17 02/25/17 02/25/17 09:00 09:17 09:17 09:54 Temp 98.4 98.4 98.4 98.4 Pulse 81 81 89 Resp 23 B/P (MAP) 155/82 (106) 136/72 151/75 Pulse Ox 98 99 O2 Delivery Ventilator Ventilator 02/25/17 02/25/17 02/25/17 02/25/17 09:58 10:00 10:21 10:32 Temp 98.1 98.1 Pulse 78 84 Resp 21 15 20 16 B/P (MAP) 151/75 (100) 151/75 Pulse Ox 99 98 99 O2 Delivery Ventilator Ventilator Nasal Cannula O2 Flow Rate 2.0 Intake and Output 02/25/17 02/25/17 02/26/17 15:00 23:00 07:00 Intake Total 455 ml Output Total 55 ml Balance 400 ml GEOVANNA DUMONTL K III DO Feb 25, 2017 11:35
[2017-02-25] MEDS: IV DEXTROSE 5 %-0.2 % NACL 1,000 ML IV SCH (15:15)
[2017-02-25] MEDS: methylPREDNISolone SOD SUCC PF 40 MG/ML VIAL. IV SCH (20:45)
[2017-02-25] MEDS ORDERED: DARBEPOETIN ALFA 60 MCG/0.3 ML DISP.SYRIN. SQ SCH (21:00)
[2017-02-26] VITALS (25 sets, daily range): BP systolic 91–186; BP diastolic 56–105
--- NOTE | 2017-02-26 02:22 | RAD ---
AP chest radiograph 02/26/2017 CLINICAL INDICATION: ET tube placement. COMPARISON: Chest radiograph 02/15/2017 FINDINGS: Right IJ central venous catheter, left IJ central venous catheter and transesophageal gastric tube are in similar position. There is an endotracheal tube with distal tip just below the level of the clavicular heads 6.5 cm above the level of the ernst. Cardiac and mediastinal silhouettes are within normal limits. No pleural effusion, pneumothorax or focal consolidation. IMPRESSION: Endotracheal tube with distal tip 6.5 cm above the level the ernst. Electronically signed by: Roberth Stone MD (02/26/2017 2:19 AM) [id number]
[2017-02-26] MEDS: IV DEXTROSE 5 %-0.2 % NACL 1,000 ML IV SCH (02:58)
[2017-02-26] MEDS ORDERED: VANCOMYCIN RANDOM LEVEL. MC ONE (05:00)
[2017-02-26 06:29] LABS: CALCIUM 8.1 mg/dL (8.5-10.1); CREATININE 4.2 mg/dL (0.6-1.0); GFR 13.3; POTASSIUM 4.5 mmol/L (3.5-5.1)
[2017-02-26 06:38] LABS: HEMOGLOBIN 6.2 g/dL (12.0-15.5)
[2017-02-26 06:41] LABS: BASO % 0 % (0-3); EOS % 0 % (0-3); HEMATOCRIT 25.8 % (36.0-47.0); HEMOGLOBIN 8.9 g/dL (12.0-15.5); LYMPH # 0.4 x10^3/uL (1.0-4.8); LYMPH % 2 % (24-48); MEAN CORPUSCULAR HEMOGLOBIN 32 pg (25-35); MEAN CORPUSCULAR HGB CONC 34 g/dL (31-37); MEAN CORPUSCULAR VOLUME 92 fL (79-100); MONO % 4 % (0-9); NEUT % 94 % (31-73); PLATELET COUNT 178 x10^3/uL (140-400); RED BLOOD COUNT 2.81 x10^6/uL (3.50-5.40); RED CELL DISTRIBUTION WIDTH 14.7 % (11.5-14.5); WHITE BLOOD COUNT 23.8 x10^3/uL (4.0-11.0)
--- NOTE | 2017-02-26 08:01 | PDOC ---
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 SKIN: No rash IV: ok Labs Lab Laboratory Tests Test 02/25/17 13:21 02/25/17 16:51 02/25/17 23:49 02/26/17 05:22 Glucose (Fingerstick) 145 mg/dL (70-99) 143 mg/dL (70-99) 132 mg/dL (70-99) White Blood Count 23.8 x10^3/uL (4.0-11.0) Red Blood Count 2.81 x10^6/uL (3.50-5.40) Hemoglobin 8.9 g/dL (12.0-15.5) Hematocrit 25.8 % (36.0-47.0) Mean Corpuscular Volume 92 fL (79-100) Mean Corpuscular Hemoglobin 32 pg (25-35) Mean Corpuscular Hemoglobin Concent 34 g/dL (31-37) Red Cell Distribution Width 14.7 % (11.5-14.5) Platelet Count 178 x10^3/uL (140-400) Neutrophils (%) (Auto) 94 % (31-73) Lymphocytes (%) (Auto) 2 % (24-48) Monocytes (%) (Auto) 4 % (0-9) Eosinophils (%) (Auto) 0 % (0-3) Basophils (%) (Auto) 0 % (0-3) Neutrophils # (Auto) 22.5 x10^3uL (1.8-7.7) Lymphocytes # (Auto) 0.4 x10^3/uL (1.0-4.8) Monocytes # (Auto) 0.9 x10^3/uL (0.0-1.1) Eosinophils # (Auto) 0.0 x10^3/uL (0.0-0.7) Basophils # (Auto) 0.0 x10^3/uL (0.0-0.2) Sodium Level 134 mmol/L (136-145) Potassium Level 4.5 mmol/L (3.5-5.1) Chloride Level 97 mmol/L (98-107) Carbon Dioxide Level 27 mmol/L (21-32) Anion Gap 10 (6-14) Blood Urea Nitrogen 125 mg/dL (7-20) Creatinine 4.2 mg/dL (0.6-1.0) Estimated GFR (Cockcroft-Gault) 13.3 Glucose Level 136 mg/dL (70-99) Calcium Level 8.1 mg/dL (8.5-10.1) Random Vancomycin Level 14.1 mcg/mL Test 02/26/17 05:27 Glucose (Fingerstick) 127 mg/dL (70-99) Micro BC MRSA Objective Assessment Fever - better - procalcitonin mild elevation MRSA sepsis/bacteremia, POA. 02/12. -TTE no evidence veg; Repeat BC from 02/15 negative Anemia Encephalopathy S/P Cardiac arrest Respiratory failure COPD Leukocytosis, on steroids, trending up DARYA. Now on HD Schizophrenia MRSA nares positive Plan Plan of Care Cont Vanc Await court decision Needs DNR/DNI Needs palliative extubation as overall prognosis is poor MILAGROS GREER MD Feb 26, 2017 08:00
[2017-02-26] MEDS ORDERED: IV NORMAL SALINE 1000ML BAG 1,000 ML IV PRN ×2 (08:15)
[2017-02-26] MEDS ORDERED: 0.9 % SODIUM CHLORIDE 10 ML DISP.SYRIN. IV PRN ×2 (08:15)
[2017-02-26] MEDS ORDERED: diphenhydrAMINE 50 MG/ML VIAL IV PRN ×2 (08:15)
[2017-02-26] MEDS ORDERED: DIALYSIS PATIENT. MC PRN (08:15)
[2017-02-26] MEDS: fentaNYL PF VIAL 100 MCG/2 ML VIAL IV PRN ×3 (08:48→23:48)
[2017-02-26] MEDS: methylPREDNISolone SOD SUCC PF 40 MG/ML VIAL. IV SCH (08:50)
[2017-02-26] MEDS: ASPIRIN 300 MG SUPP.RECT PR SCH (08:50)
[2017-02-26] MEDS: FAMOTIDINE 20 MG/2 ML VIAL IVP SCH (08:51)
[2017-02-26] MEDS: VANCOMYCIN PER PHARMACY MC PRN (09:14)
--- NOTE | 2017-02-26 10:34 | PDOC ---
Dialysis Progress Note Dialysis Note Dialysis Note Seen on Hemodialysis, tolerating treatment poorly (BP Dropped at onset of HD) RR has been ^ed Vitals on Hemodialysis: 115/61 105 afeb General Appearance: min Awake: does not track Neck: + JVD + JVP Chest: CTA Jame - few rales Heart: S1 S2 - tachy Abdomen - Soft NTND Extremities - No Edema ARF/ ATN Oligoanuric: Dialysis as below F 180 NR 3.0 Hrs 3 K 2.5 Ca 140 Na 35 HC03 Qb 350 + Qd 500+ Heparin 0 Units Uf 1-2 Kgs or to dry weight as tolerated May give 25-50 gms of 25% Albumin if needed to maintain Hemodynamic stability Treatment plan reviewed and discussed with director funds development May need Extra HD in am due to ^ing BUN trend Vitals Vital Signs Vital Signs Date Time Temp Pulse Resp B/P (MAP) Pulse Ox O2 Delivery O2 Flow Rate FiO2 02/26/17 10:00 108 23 110/70 (83) 97 Ventilator 02/26/17 04:00 98.3 98.3 02/25/17 10:32 2.0 Labs Last Labs Laboratory Tests Test 02/24/17 12:40 02/25/17 00:00 02/25/17 04:59 02/25/17 06:23 O2 Saturation 95 % (92-99) Arterial Blood pH 7.44 (7.35-7.45) Arterial Blood pCO2 at Patient Temp 39 mmHg (35-46) Arterial Blood pO2 at Patient Temp 82 mmHg (75-108) Arterial Blood HCO3 25 mmol/L (21-28) Arterial Blood Base Excess 1 mmol/L (-3-3) FiO2 35 Glucose (Fingerstick) 149 mg/dL (70-99) 135 mg/dL (70-99) White Blood Count 29.2 x10^3/uL (4.0-11.0) Red Blood Count 2.08 x10^6/uL (3.50-5.40) Hemoglobin 6.5 g/dL (12.0-15.5) Hematocrit 19.4 % (36.0-47.0) Mean Corpuscular Volume 94 fL (79-100) Mean Corpuscular Hemoglobin 32 pg (25-35) Mean Corpuscular Hemoglobin Concent 34 g/dL (31-37) Red Cell Distribution Width 14.4 % (11.5-14.5) Platelet Count 162 x10^3/uL (140-400) Neutrophils (%) (Auto) 93 % (31-73) Lymphocytes (%) (Auto) 2 % (24-48) Monocytes (%) (Auto) 5 % (0-9) Eosinophils (%) (Auto) 0 % (0-3) Basophils (%) (Auto) 0 % (0-3) Neutrophils # (Auto) 27.2 x10^3uL (1.8-7.7) Lymphocytes # (Auto) 0.5 x10^3/uL (1.0-4.8) Monocytes # (Auto) 1.4 x10^3/uL (0.0-1.1) Eosinophils # (Auto) 0.0 x10^3/uL (0.0-0.7) Basophils # (Auto) 0.1 x10^3/uL (0.0-0.2) Sodium Level 136 mmol/L (136-145) Potassium Level 4.6 mmol/L (3.5-5.1) Chloride Level 97 mmol/L (98-107) Carbon Dioxide Level 29 mmol/L (21-32) Anion Gap 10 (6-14) Blood Urea Nitrogen 101 mg/dL (7-20) Creatinine 3.7 mg/dL (0.6-1.0) Estimated GFR (Cockcroft-Gault) 15.4 Glucose Level 141 mg/dL (70-99) Calcium Level 7.8 mg/dL (8.5-10.1) Test 02/25/17 13:21 02/25/17 16:51 02/25/17 23:49 02/26/17 05:22 Glucose (Fingerstick) 145 mg/dL (70-99) 143 mg/dL (70-99) 132 mg/dL (70-99) White Blood Count 23.8 x10^3/uL (4.0-11.0) Red Blood Count 2.81 x10^6/uL (3.50-5.40) Hemoglobin 8.9 g/dL (12.0-15.5) Hematocrit 25.8 % (36.0-47.0) Mean Corpuscular Volume 92 fL (79-100) Mean Corpuscular Hemoglobin 32 pg (25-35) Mean Corpuscular Hemoglobin Concent 34 g/dL (31-37) Red Cell Distribution Width 14.7 % (11.5-14.5) Platelet Count 178 x10^3/uL (140-400) Neutrophils (%) (Auto) 94 % (31-73) Lymphocytes (%) (Auto) 2 % (24-48) Monocytes (%) (Auto) 4 % (0-9) Eosinophils (%) (Auto) 0 % (0-3) Basophils (%) (Auto) 0 % (0-3) Neutrophils # (Auto) 22.5 x10^3uL (1.8-7.7) Lymphocytes # (Auto) 0.4 x10^3/uL (1.0-4.8) Monocytes # (Auto) 0.9 x10^3/uL (0.0-1.1) Eosinophils # (Auto) 0.0 x10^3/uL (0.0-0.7) Basophils # (Auto) 0.0 x10^3/uL (0.0-0.2) Sodium Level 134 mmol/L (136-145) Potassium Level 4.5 mmol/L (3.5-5.1) Chloride Level 97 mmol/L (98-107) Carbon Dioxide Level 27 mmol/L (21-32) Anion Gap 10 (6-14) Blood Urea Nitrogen 125 mg/dL (7-20) Creatinine 4.2 mg/dL (0.6-1.0) Estimated GFR (Cockcroft-Gault) 13.3 Glucose Level 136 mg/dL (70-99) Calcium Level 8.1 mg/dL (8.5-10.1) Random Vancomycin Level 14.1 mcg/mL Test 02/26/17 05:27 Glucose (Fingerstick) 127 mg/dL (70-99) Laboratory Tests Test 02/25/17 13:21 02/25/17 16:51 02/25/17 23:49 02/26/17 05:22 Glucose (Fingerstick) 145 mg/dL (70-99) 143 mg/dL (70-99) 132 mg/dL (70-99) White Blood Count 23.8 x10^3/uL (4.0-11.0) Red Blood Count 2.81 x10^6/uL (3.50-5.40) Hemoglobin 8.9 g/dL (12.0-15.5) Hematocrit 25.8 % (36.0-47.0) Mean Corpuscular Volume 92 fL (79-100) Mean Corpuscular Hemoglobin 32 pg (25-35) Mean Corpuscular Hemoglobin Concent 34 g/dL (31-37) Red Cell Distribution Width 14.7 % (11.5-14.5) Platelet Count 178 x10^3/uL (140-400) Neutrophils (%) (Auto) 94 % (31-73) Lymphocytes (%) (Auto) 2 % (24-48) Monocytes (%) (Auto) 4 % (0-9) Eosinophils (%) (Auto) 0 % (0-3) Basophils (%) (Auto) 0 % (0-3) Neutrophils # (Auto) 22.5 x10^3uL (1.8-7.7) Lymphocytes # (Auto) 0.4 x10^3/uL (1.0-4.8) Monocytes # (Auto) 0.9 x10^3/uL (0.0-1.1) Eosinophils # (Auto) 0.0 x10^3/uL (0.0-0.7) Basophils # (Auto) 0.0 x10^3/uL (0.0-0.2) Sodium Level 134 mmol/L (136-145) Potassium Level 4.5 mmol/L (3.5-5.1) Chloride Level 97 mmol/L (98-107) Carbon Dioxide Level 27 mmol/L (21-32) Anion Gap 10 (6-14) Blood Urea Nitrogen 125 mg/dL (7-20) Creatinine 4.2 mg/dL (0.6-1.0) Estimated GFR (Cockcroft-Gault) 13.3 Glucose Level 136 mg/dL (70-99) Calcium Level 8.1 mg/dL (8.5-10.1) Random Vancomycin Level 14.1 mcg/mL Test 02/26/17 05:27 Glucose (Fingerstick) 127 mg/dL (70-99) Assessment Assessment Problems Medical Problems: (1) Cardiac arrest Status: Acute (2) Elevated troponin Status: Acute (3) Hyperkalemia Status: Acute (4) Hypoglycemia Status: Acute (5) Hyponatremia Status: Acute Problems: Plan Plan of Care Problems Medical Problems: (1) Cardiac arrest Status: Acute (2) Elevated troponin Status: Acute (3) Hyperkalemia Status: Acute (4) Hypoglycemia Status: Acute (5) Hyponatremia Status: Acute ELIAZAR GREER MD Feb 26, 2017 10:33
--- NOTE | 2017-02-26 11:32 | PDOC ---
PROGRESS NOTES Chief Complaint Chief Complaint cardiac arrest, asystole, unknown down time, s/p hypothermia Anoxic encephalopathy, off sedation, no response Normal corrected calcium Oliguric renal OLIGURIC RENAL FAILURE SNU resident HX schiz by documentation Sepsis with organ failure, needing pressor Thrombocytopenia ANemia, normocytic Hyponatremia Acute precipitous drop hgb History of Present Illness History of Present Illness Pt seen at bedside in the ICU. She remains nonresponsive and on the ventilator. OG tube in place for feeding. Rectal tube in place for bowel movements. Rodriguez catheter in place for urination. Discussed the patient with CAR SALESPERSON at bedside. Ethics committee consulted on case. Meeting scheduled with judge miladis, and Dr. Dumont on 02/28/2017 to discuss DNR and possible extubation. Vent: AC/16/420/35%/O2 sat 100%/5 PEEP Vitals Vitals Vital Signs Date Time Temp Pulse Resp B/P (MAP) Pulse Ox O2 Delivery O2 Flow Rate FiO2 02/26/17 11:00 94 21 102/74 (83) 100 Ventilator 02/26/17 04:00 98.3 98.3 02/25/17 10:32 2.0 Physical Exam Physical Exam Patient nonresponsive and breathing via ventilator despite discontinuing sedation. No startle reflex or response to verbal or physical stimulation. Yellow urine flowing from rodriguez catheter into bedside bag. Rectal tube in place for bowel evacuation. OG tube in place for feeding. Discoloration (possible bleeding) at nail beds of fingers of left hand. No discoloration on R hand or either extremity. SCDs present. General: Other (On vent, nonresponsive) Heart: Regular rate, Gallops, Other (distant S1/S2) Lungs: Clear, Other Abdomen: Normal bowel sounds, Soft, No tenderness, No hepatosplenomegaly, No masses Extremities: No clubbing, No cyanosis, No edema, Normal pulses, No tenderness/ swelling, Other (Discoloration of nail beds of left hand. Nurse agreed that it appeared to be blood. ) Skin: No breakdown, No significant lesion Labs LABS Laboratory Tests Test 02/25/17 13:21 02/25/17 16:51 02/25/17 23:49 02/26/17 05:22 Glucose (Fingerstick) 145 mg/dL (70-99) 143 mg/dL (70-99) 132 mg/dL (70-99) White Blood Count 23.8 x10^3/uL (4.0-11.0) Red Blood Count 2.81 x10^6/uL (3.50-5.40) Hemoglobin 8.9 g/dL (12.0-15.5) Hematocrit 25.8 % (36.0-47.0) Mean Corpuscular Volume 92 fL (79-100) Mean Corpuscular Hemoglobin 32 pg (25-35) Mean Corpuscular Hemoglobin Concent 34 g/dL (31-37) Red Cell Distribution Width 14.7 % (11.5-14.5) Platelet Count 178 x10^3/uL (140-400) Neutrophils (%) (Auto) 94 % (31-73) Lymphocytes (%) (Auto) 2 % (24-48) Monocytes (%) (Auto) 4 % (0-9) Eosinophils (%) (Auto) 0 % (0-3) Basophils (%) (Auto) 0 % (0-3) Neutrophils # (Auto) 22.5 x10^3uL (1.8-7.7) Lymphocytes # (Auto) 0.4 x10^3/uL (1.0-4.8) Monocytes # (Auto) 0.9 x10^3/uL (0.0-1.1) Eosinophils # (Auto) 0.0 x10^3/uL (0.0-0.7) Basophils # (Auto) 0.0 x10^3/uL (0.0-0.2) Sodium Level 134 mmol/L (136-145) Potassium Level 4.5 mmol/L (3.5-5.1) Chloride Level 97 mmol/L (98-107) Carbon Dioxide Level 27 mmol/L (21-32) Anion Gap 10 (6-14) Blood Urea Nitrogen 125 mg/dL (7-20) Creatinine 4.2 mg/dL (0.6-1.0) Estimated GFR (Cockcroft-Gault) 13.3 Glucose Level 136 mg/dL (70-99) Calcium Level 8.1 mg/dL (8.5-10.1) Random Vancomycin Level 14.1 mcg/mL Test 02/26/17 05:27 Glucose (Fingerstick) 127 mg/dL (70-99) Review of Systems Review of Systems ROS unattainable secondary to AMS Assessment and Plan Assessmemt and Plan Problems Medical Problems: (1) Cardiac arrest Status: Acute (2) Elevated troponin Status: Acute (3) Hyperkalemia Status: Acute (4) Hypoglycemia Status: Acute (5) Hyponatremia Status: Acute Assessment: -cardiac arrest, asystole, unknown down time, s/p hypothermia Anoxic encephalopathy, off sedation, no response Oliguric renal OLIGURIC RENAL FAILURE SNU resident HX schiz by documentation Sepsis with organ failure, needing pressor ANemia, normocytic Hyponatremia Acute precipitous drop hgb Plan: - Continue ICU monitoring - Continue mechanical ventilation - OG tube, rectal tube, and rodriguez cath remain in place - Recheck labs - d/w Dr. Hughes (pulm) at bedside - D/w CAR SALESPERSON at bedside - Awaiting court meeting (02/28) Problems: Comment Review of Relevant I have reviewed the following items reji (where applicable) has been applied. Labs Laboratory Tests Test 02/24/17 12:40 02/25/17 00:00 02/25/17 04:59 02/25/17 06:23 O2 Saturation 95 % (92-99) Arterial Blood pH 7.44 (7.35-7.45) Arterial Blood pCO2 at Patient Temp 39 mmHg (35-46) Arterial Blood pO2 at Patient Temp 82 mmHg (75-108) Arterial Blood HCO3 25 mmol/L (21-28) Arterial Blood Base Excess 1 mmol/L (-3-3) FiO2 35 Glucose (Fingerstick) 149 mg/dL (70-99) 135 mg/dL (70-99) White Blood Count 29.2 x10^3/uL (4.0-11.0) Red Blood Count 2.08 x10^6/uL (3.50-5.40) Hemoglobin 6.5 g/dL (12.0-15.5) Hematocrit 19.4 % (36.0-47.0) Mean Corpuscular Volume 94 fL (79-100) Mean Corpuscular Hemoglobin 32 pg (25-35) Mean Corpuscular Hemoglobin Concent 34 g/dL (31-37) Red Cell Distribution Width 14.4 % (11.5-14.5) Platelet Count 162 x10^3/uL (140-400) Neutrophils (%) (Auto) 93 % (31-73) Lymphocytes (%) (Auto) 2 % (24-48) Monocytes (%) (Auto) 5 % (0-9) Eosinophils (%) (Auto) 0 % (0-3) Basophils (%) (Auto) 0 % (0-3) Neutrophils # (Auto) 27.2 x10^3uL (1.8-7.7) Lymphocytes # (Auto) 0.5 x10^3/uL (1.0-4.8) Monocytes # (Auto) 1.4 x10^3/uL (0.0-1.1) Eosinophils # (Auto) 0.0 x10^3/uL (0.0-0.7) Basophils # (Auto) 0.1 x10^3/uL (0.0-0.2) Sodium Level 136 mmol/L (136-145) Potassium Level 4.6 mmol/L (3.5-5.1) Chloride Level 97 mmol/L (98-107) Carbon Dioxide Level 29 mmol/L (21-32) Anion Gap 10 (6-14) Blood Urea Nitrogen 101 mg/dL (7-20) Creatinine 3.7 mg/dL (0.6-1.0) Estimated GFR (Cockcroft-Gault) 15.4 Glucose Level 141 mg/dL (70-99) Calcium Level 7.8 mg/dL (8.5-10.1) Test 02/25/17 13:21 02/25/17 16:51 02/25/17 23:49 02/26/17 05:22 Glucose (Fingerstick) 145 mg/dL (70-99) 143 mg/dL (70-99) 132 mg/dL (70-99) White Blood Count 23.8 x10^3/uL (4.0-11.0) Red Blood Count 2.81 x10^6/uL (3.50-5.40) Hemoglobin 8.9 g/dL (12.0-15.5) Hematocrit 25.8 % (36.0-47.0) Mean Corpuscular Volume 92 fL (79-100) Mean Corpuscular Hemoglobin 32 pg (25-35) Mean Corpuscular Hemoglobin Concent 34 g/dL (31-37) Red Cell Distribution Width 14.7 % (11.5-14.5) Platelet Count 178 x10^3/uL (140-400) Neutrophils (%) (Auto) 94 % (31-73) Lymphocytes (%) (Auto) 2 % (24-48) Monocytes (%) (Auto) 4 % (0-9) Eosinophils (%) (Auto) 0 % (0-3) Basophils (%) (Auto) 0 % (0-3) Neutrophils # (Auto) 22.5 x10^3uL (1.8-7.7) Lymphocytes # (Auto) 0.4 x10^3/uL (1.0-4.8) Monocytes # (Auto) 0.9 x10^3/uL (0.0-1.1) Eosinophils # (Auto) 0.0 x10^3/uL (0.0-0.7) Basophils # (Auto) 0.0 x10^3/uL (0.0-0.2) Sodium Level 134 mmol/L (136-145) Potassium Level 4.5 mmol/L (3.5-5.1) Chloride Level 97 mmol/L (98-107) Carbon Dioxide Level 27 mmol/L (21-32) Anion Gap 10 (6-14) Blood Urea Nitrogen 125 mg/dL (7-20) Creatinine 4.2 mg/dL (0.6-1.0) Estimated GFR (Cockcroft-Gault) 13.3 Glucose Level 136 mg/dL (70-99) Calcium Level 8.1 mg/dL (8.5-10.1) Random Vancomycin Level 14.1 mcg/mL Test 02/26/17 05:27 Glucose (Fingerstick) 127 mg/dL (70-99) Laboratory Tests Test 02/25/17 13:21 02/25/17 16:51 02/25/17 23:49 02/26/17 05:22 Glucose (Fingerstick) 145 mg/dL (70-99) 143 mg/dL (70-99) 132 mg/dL (70-99) White Blood Count 23.8 x10^3/uL (4.0-11.0) Red Blood Count 2.81 x10^6/uL (3.50-5.40) Hemoglobin 8.9 g/dL (12.0-15.5) Hematocrit 25.8 % (36.0-47.0) Mean Corpuscular Volume 92 fL (79-100) Mean Corpuscular Hemoglobin 32 pg (25-35) Mean Corpuscular Hemoglobin Concent 34 g/dL (31-37) Red Cell Distribution Width 14.7 % (11.5-14.5) Platelet Count 178 x10^3/uL (140-400) Neutrophils (%) (Auto) 94 % (31-73) Lymphocytes (%) (Auto) 2 % (24-48) Monocytes (%) (Auto) 4 % (0-9) Eosinophils (%) (Auto) 0 % (0-3) Basophils (%) (Auto) 0 % (0-3) Neutrophils # (Auto) 22.5 x10^3uL (1.8-7.7) Lymphocytes # (Auto) 0.4 x10^3/uL (1.0-4.8) Monocytes # (Auto) 0.9 x10^3/uL (0.0-1.1) Eosinophils # (Auto) 0.0 x10^3/uL (0.0-0.7) Basophils # (Auto) 0.0 x10^3/uL (0.0-0.2) Sodium Level 134 mmol/L (136-145) Potassium Level 4.5 mmol/L (3.5-5.1) Chloride Level 97 mmol/L (98-107) Carbon Dioxide Level 27 mmol/L (21-32) Anion Gap 10 (6-14) Blood Urea Nitrogen 125 mg/dL (7-20) Creatinine 4.2 mg/dL (0.6-1.0) Estimated GFR (Cockcroft-Gault) 13.3 Glucose Level 136 mg/dL (70-99) Calcium Level 8.1 mg/dL (8.5-10.1) Random Vancomycin Level 14.1 mcg/mL Test 02/26/17 05:27 Glucose (Fingerstick) 127 mg/dL (70-99) Microbiology 02/15/17 Blood Culture - Final, Complete NO GROWTH AFTER 5 DAYS 02/12/17 Urine Culture - Final, Complete 02/12/17 Urine Culture Result 1 (ELIZABETH) - Final, Complete Medications Current Medications Calcium Chloride 1,000 mg 1X ONCE IV Last administered on 02/12/17t 15:35; Start 02/12/17 at 16:00; Stop 02/12/17 at 16:35; Status DC Dextrose (Dextrose 50%-Water Syringe) 25 gm 1X ONCE IV Last administered on 15:33; Start 02/12/17 at 16:00; Stop 02/12/17 at 16:35; Status DC Sodium Bicarbonate 50 meq 1X ONCE IV Last administered on 02/12/17 15:35; Start 02/12/17 at 16:00; Stop 02/12/17 at 16:35; Status DC Furosemide (Lasix) 40 mg 1X ONCE IVP Last administered on 02/12/17 16:42; Start 02/12/17 at 16:30; Stop 02/12/17 at 16:35; Status DC Sodium Chloride 1,000 ml @ 1,000 mls/hr Q1H IV Last administered on 02/12/17 15:50; Start 02/12/17 at 16:57; Stop 02/13/17 at 07:23; Status DC Fentanyl Citrate (Fentanyl 2ml Vial) 25 mcg PRN Q30MIN PRN IV SED; Start at 17:00; Stop 02/25/17 at 09:24; Status DC Lorazepam (Ativan) 1 mg PRN Q30MIN PRN IV SEDATION; Start 02/12/17 at 17:00 Fentanyl Citrate 30 ml @ 2.5 mls/hr CONT PRN PRN IV IVF Last administered on 03:27; Start 02/12/17 at 17:00; Stop 02/20/17 at 10:36; Status DC Propofol 100 ml @ 0 mls/hr CONT PRN IV SEE I/O RECORD; Start 02/12/17 at 17:00; Stop 02/20/17 at 10:36; Status DC Vecuronium [place] (Norcuron Bolus) DOSE AT 0.1 mg/kg PRN Q30MIN PRN IV SHIVERING Last administered on 02/12/17 19:46; Start 02/12/17 at 17:00; Stop 02/13 at 11:01; Status DC Meperidine HCl (Demerol) 12.5 mg PRN Q30MIN PRN IV SHIVERING; Start 02/12/17 at 17:00; Stop 02/25/17 at 09:24; Status DC Multi-Ingred Cream/Lotion/Oil/ Oint (Artificial Tears Eye Oint) 1 silvestre PRN Q6HRS PRN OU 0.5 INCH FOR DRY EYE Last administered on 02/23/17 07:34; Start at 17:00 Famotidine (Pepcid) 20 mg BID IVP Last administered on 02/14/17 10:47; Start at 09:00; Stop 02/14/17 at 16:23; Status DC Aspirin (Aspirin) 300 mg DAILY LA Last administered on 02/26/17 08:50; Start 02/13/17 at 09:00 Sodium Chloride (Normal Saline Flush) 3 ml QSHIFT PRN IV AFTER MEDS AND BLOOD DRAWS; Start 02/12/17 at 17:00 Acetaminophen (Tylenol) 650 mg Q6HRS NG Last administered on 02/13/17 05:51; Start 02/12/17 at 18:00; Stop 02/13/17 at 17:59; Status DC Acetaminophen (Acetaminophen Supp) 650 mg PRN Q6HRS PRN LA MILD PAIN / TEMP; Start 02/13/17 at 17:00 Acetaminophen (Tylenol) 650 mg PRN Q6HRS PRN NG MILD PAIN / TEMP Last administered on 02/23/17 13:02; Start 02/13/17 at 17:00 Info 1 ea DAILY PRN MC PER PROTOCOL; Start 02/14/17 at 17:00 Sodium Chloride 500 ml @ 500 mls/hr 1X ONCE IV Last administered on 02/12/17 16:30; Start 02/12/17 at 17:15; Stop 02/12/17 at 18:14; Status DC Sodium Chloride 500 ml @ 500 mls/hr 1X ONCE IV Last administered on 02/12/17 16:50; Start 02/12/17 at 17:15; Stop 02/12/17 at 18:14; Status DC Sodium Chloride 1,000 ml @ 100 mls/hr Q10H IV Last administered on 02/13/17 06 :36; Start 02/12/17 at 19:00; Stop 02/13/17 at 10:51; Status DC Famotidine (Pepcid) 20 mg 1X ONCE PO Last administered on 02/12/17 19:57; Start 02/12/17 at 17:30; Stop 02/12/17 at 17:34; Status DC Methylprednisolone Sodium Succinate (SOLU-Medrol 40MG VIAL) 100 mg TID IV Last administered on 02/14/17 11:01; Start 02/12/17 at 18:00; Stop 02/14/17 at 12:00; Status DC Sodium Chloride 1,000 ml @ 1,000 mls/hr 1X ONCE IV Last administered on 19:31; Start 02/12/17 at 18:15; Stop 02/12/17 at 19:14; Status DC Piperacillin Sod/ Tazobactam Sod (Zosyn Per Pharmacy) 1 each PRN DAILY PRN MC SEE COMMENTS; Start 02/12/17 at 19:15; Stop 02/18/17 at 07:22; Status DC Vancomycin HCl (Vanco Per Pharmacy) 1 each PRN DAILY PRN MC SEE COMMENTS Last administered on 02/13/17 16:50; Start 02/12/17 at 19:15; Stop 02/14/17 at 07:57; Status DC Piperacillin Sod/ Tazobactam Sod 3.375 gm/Sodium Chloride 50 ml @ 100 mls/hr Q6HRS IV Last administered on 02/15/17 05:58; Start 02/12/17 at 19:30; Stop 02/15 at 09:37; Status DC Vancomycin HCl 1 gm/Sodium Chloride 250 ml @ 250 mls/hr 1X ONCE IV Last administered on 02/12/17 20:00; Start 02/12/17 at 19:30; Stop 02/12/17 at 20:29; Status DC Sodium Bicarbonate 50 meq 1X ONCE IV Last administered on 02/12/17 19:59; Start 02/12/17 at 19:30; Stop 02/12/17 at 19:31; Status DC Norepinephrine Bitartrate 250 ml @ 0 mls/hr CONT PRN IV SEE I/O RECORD Last administered on 02/16/17 07:18; Start 02/12/17 at 19:30; Stop 02/20/17 at 10:36 ; Status DC Norepinephrine Bitartrate 250 ml @ As Directed STK-MED ONCE IV ; Start 02/12/17 at 19:25; Stop 02/12/17 at 19:26; Status DC Vancomycin HCl 750 mg/Sodium Chloride 250 ml @ 250 mls/hr Q24H IV Last administered on 02/13/17 20:34; Start 02/13/17 at 20:00; Stop 02/14/17 at 07:57; Status DC Vancomycin HCl 1 each 1X ONCE MC ; Start 02/14/17 at 19:30; Stop 02/14/17 at 19: 31; Status Cancel Sodium Chloride 1,000 ml @ 1,000 mls/hr 1X ONCE IV Last administered on 05:05; Start 02/13/17 at 04:45; Stop 02/13/17 at 05:44; Status DC Sodium Chloride 1,000 ml @ 1,000 mls/hr 1X ONCE IV Last administered on 05:35; Start 02/13/17 at 05:30; Stop 02/13/17 at 06:29; Status DC Magnesium Sulfate/ Dextrose 50 ml @ 25 mls/hr PRN DAILY PRN IV for Mag < 1.7 on am labs; Start 02/13/17 at 10:45 Dextrose/Sodium Chloride 1,000 ml @ 75 mls/hr [id number] IV Last administered on 02/15/17 01:52; Start 02/13/17 at 11:00; Stop 02/15/17 at 08:52; Status DC Vecuronium [place] (Norcuron Bolus) 5 mg PRN Q30MIN PRN IV SHIVERING; Start 02/13/17 at 11:15; Stop 02/25/17 at 09:25; Status DC Lidocaine/Sodium Bicarbonate (Buffered Lidocaine 1%) 3 ml 1X ONCE IJ Last administered on 02/13/17 11:40; Start 02/13/17 at 11:15; Stop 02/13/17 at 11:26; Status DC Heparin Sodium/ Sodium Chloride 60 unit 1X ONCE IV Last administered on 11:40; Start 02/13/17 at 11:15; Stop 02/13/17 at 11:26; Status DC Lidocaine/Sodium Bicarbonate (Buffered Lidocaine 1%) 20 ml STK-MED ONCE IJ ; Start 02/13/17 at 11:22; Stop 02/13/17 at 11:29; Status DC Heparin Sodium (Porcine) (Heparin Sodium) 2,075 unit 1X ONCE IV Last administered on 02/13/17 12:45; Start 02/13/17 at 11:45; Stop 02/13/17 at 11:56; Status DC Heparin Sodium/ Dextrose 500 ml @ 16.5 mls/hr CONT PRN IV SEE I/O RECORD Last administered on 02/13/17 12:47; Start 02/13/17 at 11:45; Stop 02/14/17 at 13:53; Status DC Heparin Sodium (Porcine) (Heparin Sodium) 1,550 unit PRN Q6HRS PRN IV FOR UFH LEVEL LESS THAN 0.2 Last administered on 02/13/17 20:22; Start 02/13/17 at 11:45 ; Stop 02/14/17 at 13:53; Status DC Heparin Sodium (Porcine) (Heparin Sodium) 800 unit PRN Q6HRS PRN IV FOR UFH LEVEL 0.2 - 0.29 Last administered on 02/14/17 02:34; Start 02/13/17 at 11:45; Stop 02/14/17 at 13:53; Status DC Warfarin Sodium (Coumadin Per Pharmacy) 1 each PRN DAILY PRN MC PER PROTOCOL; Start 02/13/17 at 11:45; Status Cancel Info (Anti-Coagulation Monitoring By Pharmacy) 1 each PRN DAILY PRN MC SEE COMMENTS; Start 02/13/17 at 13:00; Stop 02/14/17 at 16:28; Status DC Calcium Chloride 1,000 mg STK-MED ONCE IV ; Start 02/12/17 at 10:00; Stop at 16:27; Status DC Epinephrine HCl (EPINEPHrine SYRINGE) 1 mg STK-MED ONCE .ROUTE ; Start 02/12/17 at 10:00; Stop 02/13/17 at 16:27; Status DC Dextrose (Dextrose 50%-Water Syringe) 25 gm STK-MED ONCE IV ; Start 02/12/17 at 10:00; Stop 02/13/17 at 16:27; Status DC Sodium Bicarbonate 50 meq STK-MED ONCE .ROUTE ; Start 02/12/17 at 10:00; Stop 02/13/17 at 16:27; Status DC Methylprednisolone Sodium Succinate (SOLU-Medrol 125MG VIAL) 100 mg TID IV Last administered on 02/24/17 08:13; Start 02/14/17 at 18:00; Stop 02/24/17 at 11:24; Status DC Norepinephrine Bitartrate 250 ml @ 0 mls/hr CONT PRN IV SEE I/O RECORD; Start 02/14/17 at 15:30; Status Cancel Famotidine (Pepcid) 20 mg DAILY IVP Last administered on 02/26/17 08:51; Start 02/15/17 at 09:00 Amino Acids/ Glycerin/ Electrolytes 1,000 ml @ 80 mls/hr [id number] IV Last administered on 02/15/17 09:32; Start 02/15/17 at 08:45; Stop 02/15/17 at 15:14; Status DC Albumin Human 100 ml @ 100 mls/hr 1X ONCE IV Last administered on 02/15/17 09 :30; Start 02/15/17 at 08:45; Stop 02/15/17 at 09:44; Status DC Furosemide (Lasix) 40 mg 1X ONCE IVP ; Start 02/15/17 at 08:45; Stop 02/15/17 at 09:18; Status DC Piperacillin Sod/ Tazobactam Sod 2.25 gm/Sodium Chloride 50 ml @ 100 mls/hr Q6HRS IV Last administered on 02/16/17 05:52; Start 02/15/17 at 12:00; Stop 03/25 at 09:17; Status DC Daptomycin 340 mg/ Sodium Chloride 50 ml @ 100 mls/hr ONCE ONCE IV Last administered on 02/15/17 11:15; Start 02/15/17 at 11:15; Stop 02/15/17 at 11:44; Status DC Dextrose/Sodium Chloride 1,000 ml @ 40 mls/hr Q24H IV Last administered on 02:58; Start 02/15/17 at 15:15 Lidocaine/Sodium Bicarbonate (Buffered Lidocaine 1%) 3 ml 1X ONCE IJ Last administered on 02/15/17 16:00; Start 02/15/17 at 15:45; Stop 02/15/17 at 15:46; Status DC Heparin Sodium/ Sodium Chloride 6,000 unit 1X ONCE IV ; Start 02/15/17 at 15:45 ; Stop 02/15/17 at 15:46; Status DC Sodium Chloride 1,000 ml @ 1,000 mls/hr Q1H PRN IV hypotension; Start 02/16/17 at 06:38; Stop 02/16/17 at 12:37; Status DC Info (PHARMACY MONITORING -- do not chart) 1 each PRN DAILY PRN MC SEE COMMENTS ; Start 02/16/17 at 06:45; Stop 02/22/17 at 07:49; Status DC Info (PHARMACY MONITORING -- do not chart) 1 each PRN DAILY PRN MC SEE COMMENTS ; Start 02/16/17 at 06:45; Stop 02/16/17 at 09:19; Status DC Info (PHARMACY MONITORING -- do not chart) 1 each PRN DAILY PRN MC SEE COMMENTS ; Start 02/16/17 at 06:45; Stop 02/16/17 at 09:19; Status DC Albumin Human 100 ml @ 100 mls/hr 1X ONCE IV Last administered on 02/16/17t 07:18; Start 02/16/17 at 07:00; Stop 02/16/17 at 07:59; Status DC Piperacillin Sod/ Tazobactam Sod 2.25 gm/Sodium Chloride 50 ml @ 100 mls/hr Q8HRS IV Last administered on 02/18/17t 05:55; Start 02/16/17 at 14:00; Stop at 07:22; Status DC Daptomycin 340 mg/ Sodium Chloride 50 ml @ 100 mls/hr QODAY IV Last administered on 02/17/17t 12:22; Start 02/17/17 at 09:00; Stop 02/18/17 at 07:22 ; Status DC Sodium Chloride 1,000 ml @ 1,000 mls/hr Q1H PRN IV hypotension; Start 02/17/17 at 08:30; Stop 02/17/17 at 16:00; Status DC Albumin Human 200 ml @ 200 mls/hr 1X PRN PRN IV Hypotension; Start 02/17/17 at 08:30; Stop 02/17/17 at 16:00; Status DC Sodium Chloride 1,000 ml @ 400 mls/hr Q2H30M PRN IV PATENCY; Start 02/17/17 at 08:30; Stop 02/17/17 at 16:00; Status DC Info (PHARMACY MONITORING -- do not chart) 1 each PRN DAILY PRN MC SEE COMMENTS ; Start 02/17/17 at 08:30; Status UNV Info (PHARMACY MONITORING -- do not chart) 1 each PRN DAILY PRN MC SEE COMMENTS ; Start 02/17/17 at 08:30; Status UNV Heparin Sodium (Porcine) (Heparin Sq) 5,000 unit Q8HRS SQ Last administered on 02/22/17 05:49; Start 02/17/17 at 14:00; Stop 02/22/17 at 14:24; Status DC Bisacodyl (Dulcolax Supp) 10 mg PRN DAILY PRN LA CONSTIPATION; Start 02/17/17 at 15:00 Polyethylene Glycol (miraLAX PACKET) 17 gm PRN DAILY PRN FT CONSTIPATION; Start 02/17/17 at 15:00 Levetiracetam 500 mg/Sodium Chloride 100 ml @ 400 mls/hr Q12HR IV Last administered on 02/26/17 08:06; Start 02/17/17 at 21:00 Vancomycin HCl (Vanco Per Pharmacy) 1 each PRN DAILY PRN MC SEE COMMENTS Last administered on 02/26/17 09:14; Start 02/18/17 at 07:30 Vancomycin HCl 1.5 gm/Sodium Chloride 500 ml @ 250 mls/hr 1X ONCE IV Last administered on 02/18/17 14:43; Start 02/18/17 at 14:30; Stop 02/18/17 at 16:29 ; Status DC Vancomycin HCl 1 each 1X ONCE MC Last administered on 02/20/17 05:00; Start 02/20/17 at 05:00; Stop 02/20/17 at 05:01; Status DC Sodium Chloride 1,000 ml @ 1,000 mls/hr Q1H PRN IV hypotension; Start 02/19/17 at 09:08; Stop 02/19/17 at 15:07; Status DC Albumin Human 200 ml @ 200 mls/hr 1X PRN PRN IV Hypotension; Start 02/19/17 at 09:15; Stop 02/19/17 at 15:14; Status DC Sodium Chloride 1,000 ml @ 400 mls/hr Q2H30M PRN IV PATENCY; Start 02/19/17 at 09:08; Stop 02/19/17 at 21:07; Status DC Info (PHARMACY MONITORING -- do not chart) 1 each PRN DAILY PRN MC SEE COMMENTS ; Start 02/19/17 at 09:15; Stop 02/19/17 at 09:17; Status DC Info (PHARMACY MONITORING -- do not chart) 1 each PRN DAILY PRN MC SEE COMMENTS ; Start 02/19/17 at 09:15; Stop 02/20/17 at 12:35; Status DC Vancomycin HCl 500 mg/Sodium Chloride 100 ml @ 100 mls/hr QMWF IV Last administered on 02/24/17 16:10; Start 02/21/17 at 16:00; Stop 02/26/17 at 09:11 ; Status DC Sodium Chloride 1,000 ml @ 1,000 mls/hr Q1H PRN IV hypotension; Start 02/21/17 at 08:14; Stop 02/21/17 at 14:13; Status DC Diphenhydramine HCl (Benadryl) 25 mg 1X PRN PRN IV ITCHING; Start 02/21/17 at 08:15; Stop 02/22/17 at 08:14; Status DC Diphenhydramine HCl (Benadryl) 25 mg 1X PRN PRN IV ITCHING; Start 02/21/17 at 08:15; Stop 02/22/17 at 08:14; Status DC Sodium Chloride (Normal Saline Flush) 10 ml 1X PRN PRN IV AP catheter pack; Start 02/21/17 at 08:15; Stop 02/22/17 at 08:14; Status DC Sodium Chloride (Normal Saline Flush) 10 ml 1X PRN PRN IV BIRD TENDER catheter pack; Start 02/21/17 at 08:15; Stop 02/22/17 at 08:14; Status DC Sodium Chloride 1,000 ml @ 400 mls/hr Q2H30M PRN IV PATENCY; Start 02/21/17 at 08:14; Stop 02/21/17 at 20:13; Status DC Info (PHARMACY MONITORING -- do not chart) 1 each PRN DAILY PRN MC SEE COMMENTS ; Start 02/21/17 at 08:15; Stop 02/24/17 at 08:29; Status DC Sodium Chloride 1,000 ml @ 1,000 mls/hr Q1H PRN IV hypotension; Start 02/24/17 at 08:19; Stop 02/24/17 at 14:18; Status DC Albumin Human 200 ml @ 200 mls/hr 1X PRN PRN IV Hypotension Last administered on 02/24/17 10:12; Start 02/24/17 at 08:30; Stop 02/24/17 at 14:29; Status DC Acetaminophen (Tylenol) 500 mg 1X PRN PRN PO MILD PAIN / TEMP; Start 02/24/17 at 08:30; Stop 02/25/17 at 08:29; Status DC Diphenhydramine HCl (Benadryl) 25 mg 1X PRN PRN IV ITCHING; Start 02/24/17 at 08:30; Stop 02/25/17 at 08:29; Status DC Diphenhydramine HCl (Benadryl) 25 mg 1X PRN PRN IV ITCHING; Start 02/24/17 at 08:30; Stop 02/25/17 at 08:29; Status DC Labetalol HCl (Normodyne) 10 mg PRN Q1HR PRN IVP SBP > 180; Start 02/24/17 at 08:30; Stop 02/25/17 at 08:29; Status DC Info (PHARMACY MONITORING -- do not chart) 1 each PRN DAILY PRN MC SEE COMMENTS ; Start 02/24/17 at 08:30 Albumin Human 200 ml @ 100 mls/hr 1X ONCE IV Last administered on 02/24/17 09:51; Start 02/24/17 at 09:45; Stop 02/24/17 at 11:44; Status DC Methylprednisolone Sodium Succinate (SOLU-Medrol 125MG VIAL) 50 mg BID IV Last administered on 02/25/17 08:28; Start 02/24/17 at 21:00; Stop 02/25/17 at 11:12 ; Status DC Fentanyl Citrate (Fentanyl 2ml Vial) 50 mcg 1X ONCE IM ; Start 02/24/17 at 11: 30; Stop 02/24/17 at 11:31; Status Cancel Fentanyl Citrate 30 ml @ 0 mls/hr CONT PRN PRN IV PROTOCOL; Start 02/24/17 at 11:30; Stop 02/24/17 at 16:18; Status DC Fentanyl Citrate (Fentanyl 2ml Vial) 50 mcg 1X ONCE IV Last administered on 12:57; Start 02/24/17 at 13:00; Stop 02/24/17 at 13:01; Status DC Fentanyl Citrate (Fentanyl 2ml Vial) 25 mcg PRN Q4HRS PRN IV PAIN Last administered on 02/26/17 08:48; Start 02/24/17 at 16:30 Vancomycin HCl 1 each 1X ONCE MC ; Start 02/26/17 at 05:00; Stop 02/26/17 at 05 :01; Status DC Darbepoetin David (Aranesp) 60 mcg [id number] SQ Last administered on 02/25/17 20 :44; Start 02/25/17 at 21:00 Methylprednisolone Sodium Succinate (SOLU-Medrol 40MG VIAL) 20 mg BID IV Last administered on 02/26/17 08:50; Start 02/25/17 at 21:00 Sodium Chloride 1,000 ml @ 1,000 mls/hr Q1H PRN IV hypotension; Start 02/26/17 at 08:15; Stop 02/26/17 at 14:14 Diphenhydramine HCl (Benadryl) 25 mg 1X PRN PRN IV ITCHING; Start 02/26/17 at 08:15; Stop 02/27/17 at 08:14; Status UNV Diphenhydramine HCl (Benadryl) 25 mg 1X PRN PRN IV ITCHING; Start 02/26/17 at 08:15; Stop 02/27/17 at 08:14 Sodium Chloride (Normal Saline Flush) 10 ml 1X PRN PRN IV AP catheter pack; Start 02/26/17 at 08:15; Stop 02/27/17 at 08:14 Sodium Chloride (Normal Saline Flush) 10 ml 1X PRN PRN IV BIRD TENDER catheter pack; Start 02/26/17 at 08:15; Stop 02/27/17 at 08:14 Sodium Chloride 1,000 ml @ 400 mls/hr Q2H30M PRN IV PATENCY; Start 02/26/17 at 08:15; Stop 02/26/17 at 20:14 Info (PHARMACY MONITORING -- do not chart) 1 each PRN DAILY PRN MC SEE COMMENTS ; Start 02/26/17 at 08:15; Status UNV Vancomycin HCl 500 mg/Sodium Chloride 100 ml @ 100 mls/hr QMWF IV ; Start 02/28 at 16:00 Vancomycin HCl 750 mg/Sodium Chloride 250 ml @ 250 mls/hr 1X ONCE IV ; Start 02/26/17 at 16:00; Stop 02/26/17 at 16:59 Active Scripts Active Reported Latuda (Lurasidone Hcl) 20 Mg Tablet 20 Mg PO AFTRNOON Remeron (Mirtazapine) 15 Mg Tablet 1 Tab PO QHS Oxybutynin Chloride Er (Oxybutynin Chloride) 10 Mg Tab.er.24 1 Tab PO DAILY Multivitamins (Multivitamin) 1 Each Tablet 1 Tab PO DAILY Latuda (Lurasidone Hcl) 20 Mg Tablet 10 Mg PO AFTRNOON Lorazepam 0.5 Mg Tablet 1 Tab PO QEVNG Duoneb 0.5-3(2.5) Mg/3 Ml (Albuterol/Ipratropium) 3 Ml Ampul.neb 3 Ml NEB BID Duoneb 0.5-3(2.5) Mg/3 Ml (Albuterol/Ipratropium) 3 Ml Ampul.neb 3 Ml NEB Q4H PRN Calcium Carbonate 500 Mg Tablet 1,000 Mg PO Q4HRS PRN Nicotine Gum (Nicotine Polacrilex) 4 Mg Gum 4 Mg BC Milk Of Magnesia (Magnesium Hydroxide) 400 Mg/5 Ml Oral.susp 400 Mg PO Q3DAYS PRN Milk Of Magnesia (Magnesium Hydroxide) 400 Mg/5 Ml Oral.susp 400 Mg PO Q3DAYS PRN Lorazepam 1 Mg Tablet 1 Tab PO Q12HR PRN Ibuprofen 400 Mg Tablet 200 Mg PO Q8HRS PRN Cough Drops (Eucalyptus Oil/Menthol) 7 Mg Lozenge 7 Mg MM Q4HRS PRN Tylenol (Acetaminophen) 325 Mg Tablet 650 Mg PO Q4HRS PRN Lovaza ([place]-3 Acid Ethyl Esters) 1 Gm Capsule 1 Cap PO QID Gabapentin 400 Mg Capsule 400 Mg PO QID Lorazepam 1 Mg Tablet 1 Tab PO BID Latuda (Lurasidone Hcl) 60 Mg Tablet 60 Mg PO BID Advair 100-50 Diskus (Fluticasone/Salmeterol) 1 Each Disk.w.dev 1 Puff IH BID Acetaminophen 325 Mg Capsule 650 Mg PO BID Vitamin D (Cholecalciferol (Vitamin D3)) 2,000 Unit Capsule 800 Unit PO DAILY Vitals/I & O Vital Sign - Last 24 Hours 02/25/17 02/25/17 02/25/17 02/25/17 12:00 12:00 12:31 13:00 Pulse 86 81 Resp 35 21 B/P (MAP) 154/84 (107) 158/83 (108) Pulse Ox 99 99 99 O2 Delivery Mechanical Ventilator Ventilator Ventilator Ventilator 02/25/17 02/25/17 02/25/17 02/25/17 14:00 14:25 15:00 16:00 Temp 98.7 98.7 Pulse 75 83 83 Resp 18 19 20 B/P (MAP) 157/83 (107) 151/81 (104) 162/83 (109) Pulse Ox 99 99 99 98 O2 Delivery Ventilator Ventilator Ventilator Ventilator 02/25/17 02/25/17 02/25/17 02/25/17 16:00 17:00 17:17 18:00 Pulse 86 90 Resp 23 26 B/P (MAP) 160/84 (109) 158/85 (109) Pulse Ox 100 99 99 O2 Delivery Mechanical Ventilator Ventilator Ventilator Ventilator 02/25/17 02/25/17 02/25/17 02/25/17 19:00 19:22 19:37 20:00 Pulse 90 Resp 23 B/P (MAP) 159/82 (107) Pulse Ox 99 99 99 O2 Delivery Ventilator Ventilator Ventilator Mechanical Ventilator 02/25/17 02/25/17 02/25/17 02/25/17 20:00 20:30 21:00 21:05 Temp 98.2 98.2 Pulse 91 90 Resp 25 24 B/P (MAP) 148/82 (104) 150/85 (106) Pulse Ox 98 98 99 O2 Delivery Ventilator Ventilator Ventilator Ventilator 02/25/17 02/25/17 02/25/17 02/26/17 22:00 22:51 23:00 00:00 Temp 98.2 98.2 Pulse 88 88 93 Resp 22 23 25 B/P (MAP) 156/85 (108) 157/97 (117) 154/88 (110) Pulse Ox 99 98 98 99 O2 Delivery Ventilator Ventilator Ventilator Ventilator 02/26/17 02/26/17 02/26/17 02/26/17 00:00 01:00 01:00 02:00 Pulse 82 92 Resp 18 23 B/P (MAP) 159/88 (111) 167/105 (125) Pulse Ox 99 98 98 O2 Delivery Mechanical Ventilator Ventilator Ventilator Ventilator 02/26/17 02/26/17 02/26/17 02/26/17 03:00 03:15 04:00 04:00 Temp 98.3 98.3 Pulse 88 101 Resp 22 24 B/P (MAP) 154/84 (107) 151/86 (107) Pulse Ox 99 99 98 O2 Delivery Ventilator Ventilator Mechanical Ventilator Ventilator 02/26/17 02/26/17 02/26/17 02/26/17 05:00 05:15 06:00 07:00 Pulse 96 97 99 Resp 18 24 26 B/P (MAP) 157/88 (111) 161/88 (112) 152/87 (108) Pulse Ox 98 99 98 98 O2 Delivery Ventilator Ventilator Ventilator Ventilator 02/26/17 02/26/17 02/26/17 02/26/17 07:54 08:00 08:00 08:48 Pulse 99 Resp 24 B/P (MAP) 153/91 (111) Pulse Ox 99 99 99 O2 Delivery Ventilator Mechanical Ventilator Ventilator Ventilator 02/26/17 02/26/17 02/26/17 02/26/17 08:55 09:00 09:15 10:00 Pulse 114 108 Resp 18 23 B/P (MAP) 91/63 (72) 110/70 (83) Pulse Ox 99 96 95 97 O2 Delivery Ventilator Ventilator Ventilator Ventilator 02/26/17 11:00 Pulse 94 Resp 21 B/P (MAP) 102/74 (83) Pulse Ox 100 O2 Delivery Ventilator Intake and Output 02/26/17 02/26/17 02/27/17 14:59 22:59 06:59 Intake Total 0 ml Output Total 125 ml Balance -125 ml HOANG DUMONT III DO Feb 26, 2017 11:32
--- NOTE | 2017-02-26 12:12 | PDOC ---
PULMONARY PROGRESS NOTES Subjective on vent, does not track Vitals Vital Signs Date Time Temp Pulse Resp B/P (MAP) Pulse Ox O2 Delivery O2 Flow Rate FiO2 02/26/17 11:00 94 21 102/74 (83) 100 Ventilator 02/26/17 04:00 98.3 98.3 02/25/17 10:32 2.0 Comments doris, discussed w rn, as mentioned as above other sys otherwise neg Lungs: Clear Cardiovascular: S1, S2 Abdomen: Soft, Non-tender, Other (no mass) Extremities: Other (1+ edema) Skin: Warm, Dry Labs Laboratory Tests Test 02/24/17 12:40 02/25/17 00:00 02/25/17 04:59 02/25/17 06:23 O2 Saturation 95 % (92-99) Arterial Blood pH 7.44 (7.35-7.45) Arterial Blood pCO2 at Patient Temp 39 mmHg (35-46) Arterial Blood pO2 at Patient Temp 82 mmHg (75-108) Arterial Blood HCO3 25 mmol/L (21-28) Arterial Blood Base Excess 1 mmol/L (-3-3) FiO2 35 Glucose (Fingerstick) 149 mg/dL (70-99) 135 mg/dL (70-99) White Blood Count 29.2 x10^3/uL (4.0-11.0) Red Blood Count 2.08 x10^6/uL (3.50-5.40) Hemoglobin 6.5 g/dL (12.0-15.5) Hematocrit 19.4 % (36.0-47.0) Mean Corpuscular Volume 94 fL (79-100) Mean Corpuscular Hemoglobin 32 pg (25-35) Mean Corpuscular Hemoglobin Concent 34 g/dL (31-37) Red Cell Distribution Width 14.4 % (11.5-14.5) Platelet Count 162 x10^3/uL (140-400) Neutrophils (%) (Auto) 93 % (31-73) Lymphocytes (%) (Auto) 2 % (24-48) Monocytes (%) (Auto) 5 % (0-9) Eosinophils (%) (Auto) 0 % (0-3) Basophils (%) (Auto) 0 % (0-3) Neutrophils # (Auto) 27.2 x10^3uL (1.8-7.7) Lymphocytes # (Auto) 0.5 x10^3/uL (1.0-4.8) Monocytes # (Auto) 1.4 x10^3/uL (0.0-1.1) Eosinophils # (Auto) 0.0 x10^3/uL (0.0-0.7) Basophils # (Auto) 0.1 x10^3/uL (0.0-0.2) Sodium Level 136 mmol/L (136-145) Potassium Level 4.6 mmol/L (3.5-5.1) Chloride Level 97 mmol/L (98-107) Carbon Dioxide Level 29 mmol/L (21-32) Anion Gap 10 (6-14) Blood Urea Nitrogen 101 mg/dL (7-20) Creatinine 3.7 mg/dL (0.6-1.0) Estimated GFR (Cockcroft-Gault) 15.4 Glucose Level 141 mg/dL (70-99) Calcium Level 7.8 mg/dL (8.5-10.1) Test 02/25/17 13:21 02/25/17 16:51 02/25/17 23:49 02/26/17 05:22 Glucose (Fingerstick) 145 mg/dL (70-99) 143 mg/dL (70-99) 132 mg/dL (70-99) White Blood Count 23.8 x10^3/uL (4.0-11.0) Red Blood Count 2.81 x10^6/uL (3.50-5.40) Hemoglobin 8.9 g/dL (12.0-15.5) Hematocrit 25.8 % (36.0-47.0) Mean Corpuscular Volume 92 fL (79-100) Mean Corpuscular Hemoglobin 32 pg (25-35) Mean Corpuscular Hemoglobin Concent 34 g/dL (31-37) Red Cell Distribution Width 14.7 % (11.5-14.5) Platelet Count 178 x10^3/uL (140-400) Neutrophils (%) (Auto) 94 % (31-73) Lymphocytes (%) (Auto) 2 % (24-48) Monocytes (%) (Auto) 4 % (0-9) Eosinophils (%) (Auto) 0 % (0-3) Basophils (%) (Auto) 0 % (0-3) Neutrophils # (Auto) 22.5 x10^3uL (1.8-7.7) Lymphocytes # (Auto) 0.4 x10^3/uL (1.0-4.8) Monocytes # (Auto) 0.9 x10^3/uL (0.0-1.1) Eosinophils # (Auto) 0.0 x10^3/uL (0.0-0.7) Basophils # (Auto) 0.0 x10^3/uL (0.0-0.2) Sodium Level 134 mmol/L (136-145) Potassium Level 4.5 mmol/L (3.5-5.1) Chloride Level 97 mmol/L (98-107) Carbon Dioxide Level 27 mmol/L (21-32) Anion Gap 10 (6-14) Blood Urea Nitrogen 125 mg/dL (7-20) Creatinine 4.2 mg/dL (0.6-1.0) Estimated GFR (Cockcroft-Gault) 13.3 Glucose Level 136 mg/dL (70-99) Calcium Level 8.1 mg/dL (8.5-10.1) Random Vancomycin Level 14.1 mcg/mL Test 02/26/17 05:27 Glucose (Fingerstick) 127 mg/dL (70-99) Laboratory Tests Test 02/25/17 13:21 02/25/17 16:51 02/25/17 23:49 02/26/17 05:22 Glucose (Fingerstick) 145 mg/dL (70-99) 143 mg/dL (70-99) 132 mg/dL (70-99) White Blood Count 23.8 x10^3/uL (4.0-11.0) Red Blood Count 2.81 x10^6/uL (3.50-5.40) Hemoglobin 8.9 g/dL (12.0-15.5) Hematocrit 25.8 % (36.0-47.0) Mean Corpuscular Volume 92 fL (79-100) Mean Corpuscular Hemoglobin 32 pg (25-35) Mean Corpuscular Hemoglobin Concent 34 g/dL (31-37) Red Cell Distribution Width 14.7 % (11.5-14.5) Platelet Count 178 x10^3/uL (140-400) Neutrophils (%) (Auto) 94 % (31-73) Lymphocytes (%) (Auto) 2 % (24-48) Monocytes (%) (Auto) 4 % (0-9) Eosinophils (%) (Auto) 0 % (0-3) Basophils (%) (Auto) 0 % (0-3) Neutrophils # (Auto) 22.5 x10^3uL (1.8-7.7) Lymphocytes # (Auto) 0.4 x10^3/uL (1.0-4.8) Monocytes # (Auto) 0.9 x10^3/uL (0.0-1.1) Eosinophils # (Auto) 0.0 x10^3/uL (0.0-0.7) Basophils # (Auto) 0.0 x10^3/uL (0.0-0.2) Sodium Level 134 mmol/L (136-145) Potassium Level 4.5 mmol/L (3.5-5.1) Chloride Level 97 mmol/L (98-107) Carbon Dioxide Level 27 mmol/L (21-32) Anion Gap 10 (6-14) Blood Urea Nitrogen 125 mg/dL (7-20) Creatinine 4.2 mg/dL (0.6-1.0) Estimated GFR (Cockcroft-Gault) 13.3 Glucose Level 136 mg/dL (70-99) Calcium Level 8.1 mg/dL (8.5-10.1) Random Vancomycin Level 14.1 mcg/mL Test 02/26/17 05:27 Glucose (Fingerstick) 127 mg/dL (70-99) Medications Active Scripts Medications Dose Route/Sig Max Daily Dose Days Date Category Latuda (Lurasidone Hcl) 20 Mg Tablet 20 Mg PO AFTRNOON 02/12/17 Reported Remeron (Mirtazapine) 15 Mg Tablet 1 Tab PO QHS 02/12/17 Reported Oxybutynin Chloride Er (Oxybutynin Chloride) 10 Mg Tab.er.24 1 Tab PO DAILY 02/12/17 Reported Multivitamins (Multivitamin) 1 Each Tablet 1 Tab PO DAILY 02/12/17 Reported Latuda (Lurasidone Hcl) 20 Mg Tablet 10 Mg PO AFTRNOON 02/12/17 Reported Lorazepam 0.5 Mg Tablet 1 Tab PO QEVNG 02/12/17 Reported Duoneb 0.5-3(2.5) Mg/3 Ml (Albuterol/Ipratropium) 3 Ml Ampul.neb 3 Ml NEB BID 02/12/17 Reported Duoneb 0.5-3(2.5) Mg/3 Ml (Albuterol/Ipratropium) 3 Ml Ampul.neb 3 Ml NEB Q4H PRN 02/12/17 Reported Calcium Carbonate 500 Mg Tablet 1,000 Mg PO Q4HRS PRN 02/12/17 Reported Nicotine Gum (Nicotine Polacrilex) 4 Mg Gum 4 Mg BC 02/12/17 Reported Milk Of Magnesia (Magnesium Hydroxide) 400 Mg/5 Ml Oral.susp 400 Mg PO Q3DAYS PRN 02/12/17 Reported Milk Of Magnesia (Magnesium Hydroxide) 400 Mg/5 Ml Oral.susp 400 Mg PO Q3DAYS PRN 02/12/17 Reported Lorazepam 1 Mg Tablet 1 Tab PO Q12HR PRN 02/12/17 Reported Ibuprofen 400 Mg Tablet 200 Mg PO Q8HRS PRN 02/12/17 Reported Cough Drops (Eucalyptus Oil/Menthol) 7 Mg Lozenge 7 Mg MM Q4HRS PRN 02/12/17 Reported Tylenol (Acetaminophen) 325 Mg Tablet 650 Mg PO Q4HRS PRN 02/12/17 Reported Lovaza ([place]-3 Acid Ethyl Esters) 1 Gm Capsule 1 Cap PO QID 02/12/17 Reported Gabapentin 400 Mg Capsule 400 Mg PO QID 02/12/17 Reported Lorazepam 1 Mg Tablet 1 Tab PO BID 02/12/17 Reported Latuda (Lurasidone Hcl) 60 Mg Tablet 60 Mg PO BID 02/12/17 Reported Advair 100-50 Diskus (Fluticasone/Salmeterol) 1 Each Disk.w.dev 1 Puff IH BID 02/12/17 Reported Acetaminophen 325 Mg Capsule 650 Mg PO BID 02/12/17 Reported Vitamin D (Cholecalciferol (Vitamin D3)) 2,000 Unit Capsule 800 Unit PO DAILY 02/12/17 Reported Comments cxr reviewed 02/25 no INFILTRATES, Impression . 1. Acute respiratory failure, sec to out of hospital arrest 2. Acute toxic/metabolic/ anoxic encephalopathy (pre-dominant) 3. Status post cardiopulmonary arrest. She had asystole. anoxic brain injury 4. Abnormal echocardiogram with ejection fraction of 35%. 5. Hyponatremia, improving 6. Abnormal LFTs secondary to hypoperfusion. 7. Acute renal failure.on HD 8. Shock, combination of cardiogenic,septic/ OFF PRESSOR 9. MRSA bactremia/ sepsis 10. Marked leukocytosis, ?steroids induced vs sepsis vs leukemoid reaction, improving with steroid taper 11. Anemia, s/p Tx, no bleeding 12. DARYA, HD Plan . cont vent support, vent setting reviewed, prn narcotics transfuse PRBC prn with HD , follow Hb. improved post Tx HD CONTINUE SUPPORT FOR NOW CXR REVIEWD, no new findings CT HEAD NOTHING NEW NUTRITION VIA TF PROGNOSIS IS POOR FOR MEANINGFUL RECOVERY. LETTER WRITTEN TO COURT / DPOA appointed COURT APPOINTED DPOA TO DO MEETING WITH DR ARAGON FRIDAY. I WOULD RECOMMEND WITHDRAWL OF CARE AND ALLOW NATURAL ANTIBX PER ID TAPER STEROIDS/ WBC TRENDING DOWN FOLLOW NEURO INPUT D/W RN/RT NEVA FALCON MD Feb 26, 2017 12:12
[2017-02-26] MEDS ORDERED: VANCOMYCIN 750 MG in IV NORMAL SALINE 250ML 250 ML IV ONE (16:00)
[2017-02-27] VITALS (23 sets, daily range): BP systolic 89–154; BP diastolic 52–83
[2017-02-27] MEDS: IV DEXTROSE 5 %-0.2 % NACL 1,000 ML IV SCH (02:22)
[2017-02-27] MEDS: fentaNYL PF VIAL 100 MCG/2 ML VIAL IV PRN ×2 (03:51→17:21)
[2017-02-27 05:42] LABS: BASO % 0 % (0-3); EOS % 0 % (0-3); HEMATOCRIT 24.3 % (36.0-47.0); HEMOGLOBIN 8.4 g/dL (12.0-15.5); LYMPH # 0.3 x10^3/uL (1.0-4.8); LYMPH % 2 % (24-48); MEAN CORPUSCULAR HEMOGLOBIN 32 pg (25-35); MEAN CORPUSCULAR HGB CONC 35 g/dL (31-37); MEAN CORPUSCULAR VOLUME 94 fL (79-100); MONO % 4 % (0-9); NEUT % 94 % (31-73); PLATELET COUNT 166 x10^3/uL (140-400); RED CELL DISTRIBUTION WIDTH 14.9 % (11.5-14.5); WHITE BLOOD COUNT 15.6 x10^3/uL (4.0-11.0)
[2017-02-27 05:54] LABS: CREATININE 3.4 mg/dL (0.6-1.0); POTASSIUM 4.4 mmol/L (3.5-5.1)
--- NOTE | 2017-02-27 08:38 | PDOC ---
Infectious Disease Note Subjective Subjective sleepy now Intubated, FiO2 35% ROS ROS unable to do Vital Sign Vital Signs Vital Signs Date Time Temp Pulse Resp B/P (MAP) Pulse Ox O2 Delivery O2 Flow Rate FiO2 02/27/17 07:20 100 Ventilator 02/27/17 07:00 100 16 150/78 (102) 02/27/17 04:21 35.0 02/27/17 04:00 98.8 98.8 Physical Exam PHYSICAL EXAM GENERAL: NAD, sleepy HEENT: PERRL, OC/OP NECK: Supple, no JVD, no LN LUNGS: Clear HEART: S1S2, no gallop, no murmur ABD: Soft, NT, no organomegaly, no rebound EXT: No edema, no cyanosis [employer]: sleepy, sedated on vent SKIN: No rash IV: ok Labs Lab Laboratory Tests Test 02/26/17 16:02 02/26/17 23:46 02/27/17 05:31 02/27/17 05:35 Glucose (Fingerstick) 123 mg/dL (70-99) 92 mg/dL (70-99) 96 mg/dL (70-99) White Blood Count 15.6 x10^3/uL (4.0-11.0) Red Blood Count 2.60 x10^6/uL (3.50-5.40) Hemoglobin 8.4 g/dL (12.0-15.5) Hematocrit 24.3 % (36.0-47.0) Mean Corpuscular Volume 94 fL (79-100) Mean Corpuscular Hemoglobin 32 pg (25-35) Mean Corpuscular Hemoglobin Concent 35 g/dL (31-37) Red Cell Distribution Width 14.9 % (11.5-14.5) Platelet Count 166 x10^3/uL (140-400) Neutrophils (%) (Auto) 94 % (31-73) Lymphocytes (%) (Auto) 2 % (24-48) Monocytes (%) (Auto) 4 % (0-9) Eosinophils (%) (Auto) 0 % (0-3) Basophils (%) (Auto) 0 % (0-3) Neutrophils # (Auto) 14.7 x10^3uL (1.8-7.7) Lymphocytes # (Auto) 0.3 x10^3/uL (1.0-4.8) Monocytes # (Auto) 0.6 x10^3/uL (0.0-1.1) Eosinophils # (Auto) 0.0 x10^3/uL (0.0-0.7) Basophils # (Auto) 0.0 x10^3/uL (0.0-0.2) Sodium Level 134 mmol/L (136-145) Potassium Level 4.4 mmol/L (3.5-5.1) Chloride Level 98 mmol/L (98-107) Carbon Dioxide Level 29 mmol/L (21-32) Anion Gap 7 (6-14) Blood Urea Nitrogen 94 mg/dL (7-20) Creatinine 3.4 mg/dL (0.6-1.0) Estimated GFR (Cockcroft-Gault) 17.0 Glucose Level 102 mg/dL (70-99) Calcium Level 8.0 mg/dL (8.5-10.1) Micro BC MRSA Objective Assessment Fever - better - procalcitonin mild elevation MRSA sepsis/bacteremia, POA. 02/12. -TTE no evidence veg; Repeat BC from 02/15 negative Anemia Encephalopathy S/P Cardiac arrest Respiratory failure COPD Leukocytosis, on steroids, trending up DARYA. Now on HD Schizophrenia MRSA nares positive Plan Plan of Care Cont Vanc BC Await court decision Needs DNR/DNI Needs palliative extubation as overall prognosis is poor MILAGROS GREER MD Feb 27, 2017 08:38
--- NOTE | 2017-02-27 08:52 | RAD ---
Portable chest, 02/27/2017, 6:19 AM: History: Congestive heart failure Comparison is made to the study of earlier the same day. The ET tube tip lies well above the ernst. An NG tube extends into the stomach. Bilateral jugular venous catheters remain in place extending to the level of the atriocaval junction. The heart size is normal. Mildly prominent pulmonary markings are unchanged. No focal consolidation is seen. There is no evidence of pleural fluid or pneumothorax. IMPRESSION: Stable portable chest.
[2017-02-27] MEDS ORDERED: methylPREDNISolone SOD SUCC PF 40 MG/ML VIAL. IV SCH (09:00)
[2017-02-27] MEDS: FAMOTIDINE 20 MG/2 ML VIAL IVP SCH (09:15)
[2017-02-27] MEDS: ASPIRIN 300 MG SUPP.RECT PR SCH (09:17)
--- NOTE | 2017-02-27 09:56 | PDOC ---
SUBJECTIVE ROS DARYA/ ATN Unable to obtain due to encephalopathy and intubated state OBJECTIVE Vital Signs Vital Signs Date Time Temp Pulse Resp B/P (MAP) Pulse Ox O2 Delivery O2 Flow Rate FiO2 02/27/17 08:57 97 Ventilator 02/27/17 07:00 100 16 150/78 (102) 02/27/17 04:21 35.0 02/27/17 04:00 98.8 98.8 PHYSICAL EXAM Physical Exam GEN: min sedated but rel unresponsive on the Vent EYES: Sclera Anicteric, Conjunctiva Normal EN: No EN Drainage, Mucous Membranes moist NECK: + JVD, + JVP, Supple, no palp Thyromegaly CVS: S1S2, ? Murmur, No Gallop, No Rub,+ Edema upper ext RESP: no Rales, no Rhonchi,+ Acc. Muscle Use GI: BS hypo ve, NO Bruit, Non Tender, Non Distended : no CVA tenderness, no Suprapubic Tenderness DIAGNOSIS/ASSESSMENT Assessment & Plan ARF/ ATN : Dialysis as below F 180 NR 3.0 Hrs 3 K 2.5 Ca 140 Na 35 HC03 Qb 350 + Qd 500+ Heparin 0 Units Uf 2-3 Kgs or to dry weight as tolerated May give 25-50 gms of 25% Albumin if needed to maintain Hemodynamic stability Treatment plan reviewed and discussed with teacher home therapy Suspect ^ed BUN is due to TF and ? upper GI Bleed? ANEMIA; Aranesp as ordered, Transfuse as needed HTN: Current BP reviewed. no pressors yet Oligo-anuria due to ATN - now on HD Poor PRognosis and very low likelihood to recover significant Cognition as noted in Neuro notes - await decision for withdrawal of care COMMENT/RELEVANT DATA Meds Current Medications Medications (Trade) Dose Ordered Sig/Bryce Start Time Stop Time Status Last Admin Dose Admin Acetaminophen (Acetaminophen Supp) 650 mg PRN Q6HRS PRN 02/13/17 17:00 Acetaminophen (Tylenol) 500 mg 1X PRN PRN 02/24/17 08:30 02/25/17 08:29 DC Albumin Human 200 ml @ 100 mls/hr 1X ONCE 02/24/17 09:45 02/24/17 11:44 DC 02/24/17 09:51 100 MLS/HR Amino Acids/ Glycerin/ Electrolytes 1,000 ml @ 80 mls/hr [id number] 02/15/17 08:45 02/15/17 15:14 DC 02/15/17 09:32 80 MLS/HR Aspirin (Aspirin) 300 mg DAILY 02/13/17 09:00 02/27/17 09:17 300 MG Bisacodyl (Dulcolax Supp) 10 mg PRN DAILY PRN 02/17/17 15:00 Calcium Chloride 1,000 mg STK-MED ONCE 02/12/17 10:00 02/13/17 16:27 DC Daptomycin 340 mg/ Sodium Chloride 50 ml @ 100 mls/hr QODAY 02/17/17 09:00 02/18/17 07:22 DC 02/17/17 12:22 100 MLS/HR Darbepoetin David (Aranesp) 60 mcg WEEKLYHS 02/25/17 21:00 02/25/17 20:44 60 MCG Dextrose (Dextrose 50%-Water Syringe) 25 gm STK-MED ONCE 02/12/17 10:00 02/13/17 16:27 DC Dextrose/Sodium Chloride 1,000 ml @ 40 mls/hr Q24H 02/15/17 15:15 02/27/17 02:22 40 MLS/HR Diphenhydramine HCl (Benadryl) 25 mg 1X PRN PRN 02/26/17 08:15 02/27/17 08:14 DC Epinephrine HCl (EPINEPHrine SYRINGE) 1 mg STK-MED ONCE 02/12/17 10:00 02/13/17 16:27 DC Famotidine (Pepcid) 20 mg DAILY 02/15/17 09:00 02/27/17 09:15 20 MG Fentanyl Citrate (Fentanyl 2ml Vial) 25 mcg PRN Q4HRS PRN 02/24/17 16:30 02/27/17 03:51 25 MCG Furosemide (Lasix) 40 mg 1X ONCE 02/15/17 08:45 02/15/17 09:18 DC Heparin Sodium (Porcine) (Heparin Sodium) 800 unit PRN Q6HRS PRN 02/13/17 11:45 02/14/17 13:53 DC 02/14/17 02:34 800 UNIT Heparin Sodium (Porcine) (Heparin Sq) 5,000 unit Q8HRS 02/17/17 14:00 02/22/17 14:24 DC 02/22/17 05:49 5,000 UNIT Heparin Sodium/ Dextrose 500 ml @ 16.5 mls/hr CONT PRN 02/13/17 11:45 02/14/17 13:53 DC 02/13/17 12:47 16.5 MLS/HR Heparin Sodium/ Sodium Chloride 6,000 unit 1X ONCE 02/15/17 15:45 02/15/17 15:46 DC Info (Anti-Coagulation Monitoring By Pharmacy) 1 each PRN DAILY PRN 02/13/17 13:00 02/14/17 16:28 DC Info (PHARMACY MONITORING -- do not chart) 1 each PRN DAILY PRN 02/26/17 08:15 UNV Labetalol HCl (Normodyne) 10 mg PRN Q1HR PRN 02/24/17 08:30 02/25/17 08:29 DC Levetiracetam 500 mg/Sodium Chloride 100 ml @ 400 mls/hr Q12HR 02/17/17 21:00 02/27/17 09:18 400 MLS/HR Lidocaine/Sodium Bicarbonate (Buffered Lidocaine 1%) 3 ml 1X ONCE 02/15/17 15:45 02/15/17 15:46 DC 02/15/17 16:00 3 ML Lorazepam (Ativan) 1 mg PRN Q30MIN PRN 02/12/17 17:00 02/26/17 21:29 1 MG Magnesium Sulfate/ Dextrose 50 ml @ 25 mls/hr PRN DAILY PRN 02/13/17 10:45 Meperidine HCl (Demerol) 12.5 mg PRN Q30MIN PRN 02/12/17 17:00 02/25/17 09:24 DC Methylprednisolone Sodium Succinate (SOLU-Medrol 40MG VIAL) 20 mg QD 02/27/17 09:00 02/27/17 09:15 20 MG Methylprednisolone Sodium Succinate (SOLU-Medrol 125MG VIAL) 50 mg BID 02/24/17 21:00 02/25/17 11:12 DC 02/25/17 08:28 50 MG Multi-Ingred Cream/Lotion/Oil/ Oint (Artificial Tears Eye Oint) 1 silvestre PRN Q6HRS PRN 02/12/17 17:00 02/23/17 07:34 1 SILVESTRE Norepinephrine Bitartrate 250 ml @ 0 mls/hr CONT PRN 02/14/17 15:30 Cancel Piperacillin Sod/ Tazobactam Sod (Zosyn Per Pharmacy) 1 each PRN DAILY PRN 02/12/17 19:15 02/18/17 07:22 DC Piperacillin Sod/ Tazobactam Sod 2.25 gm/Sodium Chloride 50 ml @ 100 mls/hr Q8HRS 02/16/17 14:00 02/18/17 07:22 DC 02/18/17 05:55 100 MLS/HR Piperacillin Sod/ Tazobactam Sod 3.375 gm/Sodium Chloride 50 ml @ 100 mls/hr Q6HRS 02/12/17 19:30 02/15/17 09:37 DC 02/15/17 05:58 100 MLS/HR Polyethylene Glycol (miraLAX PACKET) 17 gm PRN DAILY PRN 02/17/17 15:00 Propofol 100 ml @ 0 mls/hr CONT PRN 02/12/17 17:00 02/20/17 10:36 DC Sodium Bicarbonate 50 meq STK-MED ONCE 02/12/17 10:00 02/13/17 16:27 DC Sodium Chloride 1,000 ml @ 400 mls/hr Q2H30M PRN 02/26/17 08:15 02/26/17 20:14 DC Sodium Chloride (Normal Saline Flush) 10 ml 1X PRN PRN 02/26/17 08:15 02/27/17 08:14 DC Vancomycin HCl (Vanco Per Pharmacy) 1 each PRN DAILY PRN 02/18/17 07:30 02/26/17 09:14 1 EACH Vancomycin HCl 1.5 gm/Sodium Chloride 500 ml @ 250 mls/hr 1X ONCE 02/18/17 14:30 02/18/17 16:29 DC 02/18/17 14:43 250 MLS/HR Vancomycin HCl 500 mg/Sodium Chloride 100 ml @ 100 mls/hr QMWF 02/28/17 16:00 Vancomycin HCl 750 mg/Sodium Chloride 250 ml @ 250 mls/hr 1X ONCE 02/26/17 16:00 02/26/17 16:59 DC 02/26/17 15:49 250 MLS/HR Vancomycin HCl 1 gm/Sodium Chloride 250 ml @ 250 mls/hr 1X ONCE 02/12/17 19:30 02/12/17 20:29 DC 02/12/17 20:00 250 MLS/HR Vecuronium [place] (Norcuron Bolus) 5 mg PRN Q30MIN PRN 02/13/17 11:15 02/25/17 09:25 DC Warfarin Sodium (Coumadin Per Pharmacy) 1 each PRN DAILY PRN 02/13/17 11:45 Cancel Lab Laboratory Tests Test 02/26/17 16:02 02/26/17 23:46 02/27/17 05:31 02/27/17 05:35 Glucose (Fingerstick) 123 mg/dL (70-99) 92 mg/dL (70-99) 96 mg/dL (70-99) White Blood Count 15.6 x10^3/uL (4.0-11.0) Red Blood Count 2.60 x10^6/uL (3.50-5.40) Hemoglobin 8.4 g/dL (12.0-15.5) Hematocrit 24.3 % (36.0-47.0) Mean Corpuscular Volume 94 fL (79-100) Mean Corpuscular Hemoglobin 32 pg (25-35) Mean Corpuscular Hemoglobin Concent 35 g/dL (31-37) Red Cell Distribution Width 14.9 % (11.5-14.5) Platelet Count 166 x10^3/uL (140-400) Neutrophils (%) (Auto) 94 % (31-73) Lymphocytes (%) (Auto) 2 % (24-48) Monocytes (%) (Auto) 4 % (0-9) Eosinophils (%) (Auto) 0 % (0-3) Basophils (%) (Auto) 0 % (0-3) Neutrophils # (Auto) 14.7 x10^3uL (1.8-7.7) Lymphocytes # (Auto) 0.3 x10^3/uL (1.0-4.8) Monocytes # (Auto) 0.6 x10^3/uL (0.0-1.1) Eosinophils # (Auto) 0.0 x10^3/uL (0.0-0.7) Basophils # (Auto) 0.0 x10^3/uL (0.0-0.2) Sodium Level 134 mmol/L (136-145) Potassium Level 4.4 mmol/L (3.5-5.1) Chloride Level 98 mmol/L (98-107) Carbon Dioxide Level 29 mmol/L (21-32) Anion Gap 7 (6-14) Blood Urea Nitrogen 94 mg/dL (7-20) Creatinine 3.4 mg/dL (0.6-1.0) Estimated GFR (Cockcroft-Gault) 17.0 Glucose Level 102 mg/dL (70-99) Calcium Level 8.0 mg/dL (8.5-10.1) ELIAZAR GREER MD Feb 27, 2017 09:55
[2017-02-27] MEDS: VANCOMYCIN PER PHARMACY MC PRN (10:12)
[2017-02-27 10:51] LABS: PLT ESTIMATE ADEQUATE (ADEQUATE)
--- NOTE | 2017-02-27 11:02 | PDOC ---
PROGRESS NOTES Chief Complaint Chief Complaint cardiac arrest, asystole, unknown down time, s/p hypothermia Anoxic encephalopathy, off sedation, no response Normal corrected calcium Oliguric renal OLIGURIC RENAL FAILURE [facility] resident HX schiz by documentation Sepsis with organ failure, needing pressor Thrombocytopenia ANemia, normocytic Hyponatremia Acute precipitous drop hgb History of Present Illness History of Present Illness Pt seen at bedside in the ICU. She remains nonresponsive and on the ventilator. OG tube in place for feeding. Rectal tube in place for bowel movements. Rodriguez catheter in place for urination. Discussed the patient with ANGLEDOZER OPERATOR at bedside. Per RN, the patient does open her eyes at times, she attempts to make eye contact and grimaces. Ethics committee consulted on case. Meeting scheduled with judge miladis, and Dr. Dumont on 02/28/2017 to discuss DNR and possible extubation. Vent: AC/16/420/35%/O2 sat 99%/5 PEEP Vitals Vitals Vital Signs Date Time Temp Pulse Resp B/P (MAP) Pulse Ox O2 Delivery O2 Flow Rate FiO2 02/27/17 08:57 97 Ventilator 02/27/17 07:00 100 16 150/78 (102) 02/27/17 04:21 35.0 02/27/17 04:00 98.8 98.8 Physical Exam Physical Exam Eyes are reactive. Patient is breathing via mechanical ventilation. She is not sedated. She does not respond to verbal or physical stimuli. She does sometimes grimace. Per RN, she does open her eyes at times, and attempts to make eye contact. Yellow urine flowing from rodriguez catheter into bedside bag. Rectal tube in place for bowel evacuation. OG tube in place for feeding. Discoloration ( possible bleeding) at nail beds of fingers of left hand. No discoloration on R hand or either extremity. SCDs present. General: Other Heart: Regular rate, Gallops, Other (distant S1/S2) Lungs: Clear Abdomen: Normal bowel sounds, Soft, No tenderness, No hepatosplenomegaly, No masses Extremities: No clubbing, No cyanosis, No edema, Normal pulses, No tenderness/ swelling, Other (Discoloration of nail beds of left hand. Nurse agreed that it appeared to be blood. ) Skin: No breakdown, No significant lesion Labs LABS Laboratory Tests Test 02/26/17 16:02 02/26/17 23:46 02/27/17 05:31 02/27/17 05:35 Glucose (Fingerstick) 123 mg/dL (70-99) 92 mg/dL (70-99) 96 mg/dL (70-99) White Blood Count 15.6 x10^3/uL (4.0-11.0) Red Blood Count 2.60 x10^6/uL (3.50-5.40) Hemoglobin 8.4 g/dL (12.0-15.5) Hematocrit 24.3 % (36.0-47.0) Mean Corpuscular Volume 94 fL (79-100) Mean Corpuscular Hemoglobin 32 pg (25-35) Mean Corpuscular Hemoglobin Concent 35 g/dL (31-37) Red Cell Distribution Width 14.9 % (11.5-14.5) Platelet Count 166 x10^3/uL (140-400) Neutrophils (%) (Auto) 94 % (31-73) Lymphocytes (%) (Auto) 2 % (24-48) Monocytes (%) (Auto) 4 % (0-9) Eosinophils (%) (Auto) 0 % (0-3) Basophils (%) (Auto) 0 % (0-3) Neutrophils # (Auto) 14.7 x10^3uL (1.8-7.7) Lymphocytes # (Auto) 0.3 x10^3/uL (1.0-4.8) Monocytes # (Auto) 0.6 x10^3/uL (0.0-1.1) Eosinophils # (Auto) 0.0 x10^3/uL (0.0-0.7) Basophils # (Auto) 0.0 x10^3/uL (0.0-0.2) Segmented Neutrophils % 88 % (35-66) Band Neutrophils % 7 % (0-9) Lymphocytes % 1 % (24-48) Monocytes % 4 % (0-10) Platelet Estimate Adequate (ADEQUATE) Sodium Level 134 mmol/L (136-145) Potassium Level 4.4 mmol/L (3.5-5.1) Chloride Level 98 mmol/L (98-107) Carbon Dioxide Level 29 mmol/L (21-32) Anion Gap 7 (6-14) Blood Urea Nitrogen 94 mg/dL (7-20) Creatinine 3.4 mg/dL (0.6-1.0) Estimated GFR (Cockcroft-Gault) 17.0 Glucose Level 102 mg/dL (70-99) Calcium Level 8.0 mg/dL (8.5-10.1) Review of Systems Review of Systems ROS unattainable secondary to patient AMS Assessment and Plan Assessmemt and Plan Problems Medical Problems: (1) Cardiac arrest Status: Acute (2) Elevated troponin Status: Acute (3) Hyperkalemia Status: Acute (4) Hypoglycemia Status: Acute (5) Hyponatremia Status: Acute Assessment: cardiac arrest, asystole, unknown down time, s/p hypothermia Anoxic encephalopathy, off sedation, no response Normal corrected calcium Oliguric renal OLIGURIC RENAL FAILURE SNU resident 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 Labs Laboratory Tests Test 02/25/17 13:21 02/25/17 16:51 02/25/17 23:49 02/26/17 05:22 Glucose (Fingerstick) 145 mg/dL (70-99) 143 mg/dL (70-99) 132 mg/dL (70-99) White Blood Count 23.8 x10^3/uL (4.0-11.0) Red Blood Count 2.81 x10^6/uL (3.50-5.40) Hemoglobin 8.9 g/dL (12.0-15.5) Hematocrit 25.8 % (36.0-47.0) Mean Corpuscular Volume 92 fL (79-100) Mean Corpuscular Hemoglobin 32 pg (25-35) Mean Corpuscular Hemoglobin Concent 34 g/dL (31-37) Red Cell Distribution Width 14.7 % (11.5-14.5) Platelet Count 178 x10^3/uL (140-400) Neutrophils (%) (Auto) 94 % (31-73) Lymphocytes (%) (Auto) 2 % (24-48) Monocytes (%) (Auto) 4 % (0-9) Eosinophils (%) (Auto) 0 % (0-3) Basophils (%) (Auto) 0 % (0-3) Neutrophils # (Auto) 22.5 x10^3uL (1.8-7.7) Lymphocytes # (Auto) 0.4 x10^3/uL (1.0-4.8) Monocytes # (Auto) 0.9 x10^3/uL (0.0-1.1) Eosinophils # (Auto) 0.0 x10^3/uL (0.0-0.7) Basophils # (Auto) 0.0 x10^3/uL (0.0-0.2) Sodium Level 134 mmol/L (136-145) Potassium Level 4.5 mmol/L (3.5-5.1) Chloride Level 97 mmol/L (98-107) Carbon Dioxide Level 27 mmol/L (21-32) Anion Gap 10 (6-14) Blood Urea Nitrogen 125 mg/dL (7-20) Creatinine 4.2 mg/dL (0.6-1.0) Estimated GFR (Cockcroft-Gault) 13.3 Glucose Level 136 mg/dL (70-99) Calcium Level 8.1 mg/dL (8.5-10.1) Random Vancomycin Level 14.1 mcg/mL Test 02/26/17 05:27 02/26/17 16:02 02/26/17 23:46 02/27/17 05:31 Glucose (Fingerstick) 127 mg/dL (70-99) 123 mg/dL (70-99) 92 mg/dL (70-99) 96 mg/dL (70-99) Test 02/27/17 05:35 White Blood Count 15.6 x10^3/uL (4.0-11.0) Red Blood Count 2.60 x10^6/uL (3.50-5.40) Hemoglobin 8.4 g/dL (12.0-15.5) Hematocrit 24.3 % (36.0-47.0) Mean Corpuscular Volume 94 fL (79-100) Mean Corpuscular Hemoglobin 32 pg (25-35) Mean Corpuscular Hemoglobin Concent 35 g/dL (31-37) Red Cell Distribution Width 14.9 % (11.5-14.5) Platelet Count 166 x10^3/uL (140-400) Neutrophils (%) (Auto) 94 % (31-73) Lymphocytes (%) (Auto) 2 % (24-48) Monocytes (%) (Auto) 4 % (0-9) Eosinophils (%) (Auto) 0 % (0-3) Basophils (%) (Auto) 0 % (0-3) Neutrophils # (Auto) 14.7 x10^3uL (1.8-7.7) Lymphocytes # (Auto) 0.3 x10^3/uL (1.0-4.8) Monocytes # (Auto) 0.6 x10^3/uL (0.0-1.1) Eosinophils # (Auto) 0.0 x10^3/uL (0.0-0.7) Basophils # (Auto) 0.0 x10^3/uL (0.0-0.2) Segmented Neutrophils % 88 % (35-66) Band Neutrophils % 7 % (0-9) Lymphocytes % 1 % (24-48) Monocytes % 4 % (0-10) Platelet Estimate Adequate (ADEQUATE) Sodium Level 134 mmol/L (136-145) Potassium Level 4.4 mmol/L (3.5-5.1) Chloride Level 98 mmol/L (98-107) Carbon Dioxide Level 29 mmol/L (21-32) Anion Gap 7 (6-14) Blood Urea Nitrogen 94 mg/dL (7-20) Creatinine 3.4 mg/dL (0.6-1.0) Estimated GFR (Cockcroft-Gault) 17.0 Glucose Level 102 mg/dL (70-99) Calcium Level 8.0 mg/dL (8.5-10.1) Laboratory Tests Test 02/26/17 16:02 02/26/17 23:46 02/27/17 05:31 02/27/17 05:35 Glucose (Fingerstick) 123 mg/dL (70-99) 92 mg/dL (70-99) 96 mg/dL (70-99) White Blood Count 15.6 x10^3/uL (4.0-11.0) Red Blood Count 2.60 x10^6/uL (3.50-5.40) Hemoglobin 8.4 g/dL (12.0-15.5) Hematocrit 24.3 % (36.0-47.0) Mean Corpuscular Volume 94 fL (79-100) Mean Corpuscular Hemoglobin 32 pg (25-35) Mean Corpuscular Hemoglobin Concent 35 g/dL (31-37) Red Cell Distribution Width 14.9 % (11.5-14.5) Platelet Count 166 x10^3/uL (140-400) Neutrophils (%) (Auto) 94 % (31-73) Lymphocytes (%) (Auto) 2 % (24-48) Monocytes (%) (Auto) 4 % (0-9) Eosinophils (%) (Auto) 0 % (0-3) Basophils (%) (Auto) 0 % (0-3) Neutrophils # (Auto) 14.7 x10^3uL (1.8-7.7) Lymphocytes # (Auto) 0.3 x10^3/uL (1.0-4.8) Monocytes # (Auto) 0.6 x10^3/uL (0.0-1.1) Eosinophils # (Auto) 0.0 x10^3/uL (0.0-0.7) Basophils # (Auto) 0.0 x10^3/uL (0.0-0.2) Segmented Neutrophils % 88 % (35-66) Band Neutrophils % 7 % (0-9) Lymphocytes % 1 % (24-48) Monocytes % 4 % (0-10) Platelet Estimate Adequate (ADEQUATE) Sodium Level 134 mmol/L (136-145) Potassium Level 4.4 mmol/L (3.5-5.1) Chloride Level 98 mmol/L (98-107) Carbon Dioxide Level 29 mmol/L (21-32) Anion Gap 7 (6-14) Blood Urea Nitrogen 94 mg/dL (7-20) Creatinine 3.4 mg/dL (0.6-1.0) Estimated GFR (Cockcroft-Gault) 17.0 Glucose Level 102 mg/dL (70-99) Calcium Level 8.0 mg/dL (8.5-10.1) Microbiology 02/15/17 Blood Culture - Final, Complete NO GROWTH AFTER 5 DAYS 02/12/17 Urine Culture - Final, Complete 02/12/17 Urine Culture Result 1 (ELIZABETH) - Final, Complete Medications Current Medications Calcium Chloride 1,000 mg 1X ONCE IV Last administered on 02/12/17 15:35; Start 02/12/17 at 16:00; Stop 02/12/17 at 16:35; Status DC Dextrose (Dextrose 50%-Water Syringe) 25 gm 1X ONCE IV Last administered on 15:33; Start 02/12/17 at 16:00; Stop 02/12/17 at 16:35; Status DC Sodium Bicarbonate 50 meq 1X ONCE IV Last administered on 02/12/17 15:35; Start 02/12/17 at 16:00; Stop 02/12/17 at 16:35; Status DC Furosemide (Lasix) 40 mg 1X ONCE IVP Last administered on 02/12/17 16:42; Start 02/12/17 at 16:30; Stop 02/12/17 at 16:35; Status DC Sodium Chloride 1,000 ml @ 1,000 mls/hr Q1H IV Last administered on 02/12/17 15:50; Start 02/12/17 at 16:57; Stop 02/13/17 at 07:23; Status DC Fentanyl Citrate (Fentanyl 2ml Vial) 25 mcg PRN Q30MIN PRN IV SED; Start at 17:00; Stop 02/25/17 at 09:24; Status DC Lorazepam (Ativan) 1 mg PRN Q30MIN PRN IV SEDATION Last administered on 21:29; Start 02/12/17 at 17:00 Fentanyl Citrate 30 ml @ 2.5 mls/hr CONT PRN PRN IV IVF Last administered on 03:27; Start 02/12/17 at 17:00; Stop 02/20/17 at 10:36; Status DC Propofol 100 ml @ 0 mls/hr CONT PRN IV SEE I/O RECORD; Start 02/12/17 at 17:00; Stop 02/20/17 at 10:36; Status DC Vecuronium [place] (Norcuron Bolus) DOSE AT 0.1 mg/kg PRN Q30MIN PRN IV SHIVERING Last administered on 02/12/17 19:46; Start 02/12/17 at 17:00; Stop 02/13 at 11:01; Status DC Meperidine HCl (Demerol) 12.5 mg PRN Q30MIN PRN IV SHIVERING; Start 02/12/17 at 17:00; Stop 02/25/17 at 09:24; Status DC Multi-Ingred Cream/Lotion/Oil/ Oint (Artificial Tears Eye Oint) 1 silvestre PRN Q6HRS PRN OU 0.5 INCH FOR DRY EYE Last administered on 02/23/17 07:34; Start at 17:00 Famotidine (Pepcid) 20 mg BID IVP Last administered on 02/14/17 10:47; Start at 09:00; Stop 02/14/17 at 16:23; Status DC Aspirin (Aspirin) 300 mg DAILY TN Last administered on 02/27/17 09:17; Start 02/13/17 at 09:00 Sodium Chloride (Normal Saline Flush) 3 ml QSHIFT PRN IV AFTER MEDS AND BLOOD DRAWS; Start 02/12/17 at 17:00 Acetaminophen (Tylenol) 650 mg Q6HRS NG Last administered on 02/13/17 05:51; Start 02/12/17 at 18:00; Stop 02/13/17 at 17:59; Status DC Acetaminophen (Acetaminophen Supp) 650 mg PRN Q6HRS PRN TN MILD PAIN / TEMP; Start 02/13/17 at 17:00 Acetaminophen (Tylenol) 650 mg PRN Q6HRS PRN NG MILD PAIN / TEMP Last administered on 02/23/17 13:02; Start 02/13/17 at 17:00 Info 1 ea DAILY PRN MC PER PROTOCOL; Start 02/14/17 at 17:00 Sodium Chloride 500 ml @ 500 mls/hr 1X ONCE IV Last administered on 02/12/17 16:30; Start 02/12/17 at 17:15; Stop 02/12/17 at 18:14; Status DC Sodium Chloride 500 ml @ 500 mls/hr 1X ONCE IV Last administered on 02/12/17 16:50; Start 02/12/17 at 17:15; Stop 02/12/17 at 18:14; Status DC Sodium Chloride 1,000 ml @ 100 mls/hr Q10H IV Last administered on 02/13/17 06 :36; Start 02/12/17 at 19:00; Stop 02/13/17 at 10:51; Status DC Famotidine (Pepcid) 20 mg 1X ONCE PO Last administered on 02/12/17 19:57; Start 02/12/17 at 17:30; Stop 02/12/17 at 17:34; Status DC Methylprednisolone Sodium Succinate (SOLU-Medrol 40MG VIAL) 100 mg TID IV Last administered on 02/14/17 11:01; Start 02/12/17 at 18:00; Stop 02/14/17 at 12:00; Status DC Sodium Chloride 1,000 ml @ 1,000 mls/hr 1X ONCE IV Last administered on 19:31; Start 02/12/17 at 18:15; Stop 02/12/17 at 19:14; Status DC Piperacillin Sod/ Tazobactam Sod (Zosyn Per Pharmacy) 1 each PRN DAILY PRN MC SEE COMMENTS; Start 02/12/17 at 19:15; Stop 02/18/17 at 07:22; Status DC Vancomycin HCl (Vanco Per Pharmacy) 1 each PRN DAILY PRN MC SEE COMMENTS Last administered on 02/13/17 16:50; Start 02/12/17 at 19:15; Stop 02/14/17 at 07:57; Status DC Piperacillin Sod/ Tazobactam Sod 3.375 gm/Sodium Chloride 50 ml @ 100 mls/hr Q6HRS IV Last administered on 02/15/17 05:58; Start 02/12/17 at 19:30; Stop 02/15 at 09:37; Status DC Vancomycin HCl 1 gm/Sodium Chloride 250 ml @ 250 mls/hr 1X ONCE IV Last administered on 02/12/17 20:00; Start 02/12/17 at 19:30; Stop 02/12/17 at 20:29; Status DC Sodium Bicarbonate 50 meq 1X ONCE IV Last administered on 02/12/17 19:59; Start 02/12/17 at 19:30; Stop 02/12/17 at 19:31; Status DC Norepinephrine Bitartrate 250 ml @ 0 mls/hr CONT PRN IV SEE I/O RECORD Last administered on 02/16/17 07:18; Start 02/12/17 at 19:30; Stop 02/20/17 at 10:36 ; Status DC Norepinephrine Bitartrate 250 ml @ As Directed STK-MED ONCE IV ; Start 02/12/17 at 19:25; Stop 02/12/17 at 19:26; Status DC Vancomycin HCl 750 mg/Sodium Chloride 250 ml @ 250 mls/hr Q24H IV Last administered on 02/13/17 20:34; Start 02/13/17 at 20:00; Stop 02/14/17 at 07:57; Status DC Vancomycin HCl 1 each 1X ONCE MC ; Start 02/14/17 at 19:30; Stop 02/14/17 at 19: 31; Status Cancel Sodium Chloride 1,000 ml @ 1,000 mls/hr 1X ONCE IV Last administered on 05:05; Start 02/13/17 at 04:45; Stop 02/13/17 at 05:44; Status DC Sodium Chloride 1,000 ml @ 1,000 mls/hr 1X ONCE IV Last administered on 05:35; Start 02/13/17 at 05:30; Stop 02/13/17 at 06:29; Status DC Magnesium Sulfate/ Dextrose 50 ml @ 25 mls/hr PRN DAILY PRN IV for Mag < 1.7 on am labs; Start 02/13/17 at 10:45 Dextrose/Sodium Chloride 1,000 ml @ 75 mls/hr [id number] IV Last administered on 02/15/17 01:52; Start 02/13/17 at 11:00; Stop 02/15/17 at 08:52; Status DC Vecuronium [place] (Norcuron Bolus) 5 mg PRN Q30MIN PRN IV SHIVERING; Start 02/13/17 at 11:15; Stop 02/25/17 at 09:25; Status DC Lidocaine/Sodium Bicarbonate (Buffered Lidocaine 1%) 3 ml 1X ONCE IJ Last administered on 02/13/17 11:40; Start 02/13/17 at 11:15; Stop 02/13/17 at 11:26; Status DC Heparin Sodium/ Sodium Chloride 60 unit 1X ONCE IV Last administered on 11:40; Start 02/13/17 at 11:15; Stop 02/13/17 at 11:26; Status DC Lidocaine/Sodium Bicarbonate (Buffered Lidocaine 1%) 20 ml STK-MED ONCE IJ ; Start 02/13/17 at 11:22; Stop 02/13/17 at 11:29; Status DC Heparin Sodium (Porcine) (Heparin Sodium) 2,075 unit 1X ONCE IV Last administered on 02/13/17 12:45; Start 02/13/17 at 11:45; Stop 02/13/17 at 11:56; Status DC Heparin Sodium/ Dextrose 500 ml @ 16.5 mls/hr CONT PRN IV SEE I/O RECORD Last administered on 02/13/17 12:47; Start 02/13/17 at 11:45; Stop 02/14/17 at 13:53; Status DC Heparin Sodium (Porcine) (Heparin Sodium) 1,550 unit PRN Q6HRS PRN IV FOR UFH LEVEL LESS THAN 0.2 Last administered on 02/13/17 20:22; Start 02/13/17 at 11:45 ; Stop 02/14/17 at 13:53; Status DC Heparin Sodium (Porcine) (Heparin Sodium) 800 unit PRN Q6HRS PRN IV FOR UFH LEVEL 0.2 - 0.29 Last administered on 02/14/17 02:34; Start 02/13/17 at 11:45; Stop 02/14/17 at 13:53; Status DC Warfarin Sodium (Coumadin Per Pharmacy) 1 each PRN DAILY PRN MC PER PROTOCOL; Start 02/13/17 at 11:45; Status Cancel Info (Anti-Coagulation Monitoring By Pharmacy) 1 each PRN DAILY PRN MC SEE COMMENTS; Start 02/13/17 at 13:00; Stop 02/14/17 at 16:28; Status DC Calcium Chloride 1,000 mg STK-MED ONCE IV ; Start 02/12/17 at 10:00; Stop at 16:27; Status DC Epinephrine HCl (EPINEPHrine SYRINGE) 1 mg STK-MED ONCE .ROUTE ; Start 02/12/17 at 10:00; Stop 02/13/17 at 16:27; Status DC Dextrose (Dextrose 50%-Water Syringe) 25 gm STK-MED ONCE IV ; Start 02/12/17 at 10:00; Stop 02/13/17 at 16:27; Status DC Sodium Bicarbonate 50 meq STK-MED ONCE .ROUTE ; Start 02/12/17 at 10:00; Stop 02/13/17 at 16:27; Status DC Methylprednisolone Sodium Succinate (SOLU-Medrol 125MG VIAL) 100 mg TID IV Last administered on 02/24/17 08:13; Start 02/14/17 at 18:00; Stop 02/24/17 at 11:24; Status DC Norepinephrine Bitartrate 250 ml @ 0 mls/hr CONT PRN IV SEE I/O RECORD; Start 02/14/17 at 15:30; Status Cancel Famotidine (Pepcid) 20 mg DAILY IVP Last administered on 02/27/17 09:15; Start 02/15/17 at 09:00 Amino Acids/ Glycerin/ Electrolytes 1,000 ml @ 80 mls/hr [id number] IV Last administered on 02/15/17 09:32; Start 02/15/17 at 08:45; Stop 02/15/17 at 15:14; Status DC Albumin Human 100 ml @ 100 mls/hr 1X ONCE IV Last administered on 02/15/17 09 :30; Start 02/15/17 at 08:45; Stop 02/15/17 at 09:44; Status DC Furosemide (Lasix) 40 mg 1X ONCE IVP ; Start 02/15/17 at 08:45; Stop 02/15/17 at 09:18; Status DC Piperacillin Sod/ Tazobactam Sod 2.25 gm/Sodium Chloride 50 ml @ 100 mls/hr Q6HRS IV Last administered on 02/16/17 05:52; Start 02/15/17 at 12:00; Stop 03/25 at 09:17; Status DC Daptomycin 340 mg/ Sodium Chloride 50 ml @ 100 mls/hr ONCE ONCE IV Last administered on 02/15/17 11:15; Start 02/15/17 at 11:15; Stop 02/15/17 at 11:44; Status DC Dextrose/Sodium Chloride 1,000 ml @ 40 mls/hr Q24H IV Last administered on 02:22; Start 02/15/17 at 15:15 Lidocaine/Sodium Bicarbonate (Buffered Lidocaine 1%) 3 ml 1X ONCE IJ Last administered on 02/15/17 16:00; Start 02/15/17 at 15:45; Stop 02/15/17 at 15:46; Status DC Heparin Sodium/ Sodium Chloride 6,000 unit 1X ONCE IV ; Start 02/15/17 at 15:45 ; Stop 02/15/17 at 15:46; Status DC Sodium Chloride 1,000 ml @ 1,000 mls/hr Q1H PRN IV hypotension; Start 02/16/17 at 06:38; Stop 02/16/17 at 12:37; Status DC Info (PHARMACY MONITORING -- do not chart) 1 each PRN DAILY PRN MC SEE COMMENTS ; Start 02/16/17 at 06:45; Stop 02/22/17 at 07:49; Status DC Info (PHARMACY MONITORING -- do not chart) 1 each PRN DAILY PRN MC SEE COMMENTS ; Start 02/16/17 at 06:45; Stop 02/16/17 at 09:19; Status DC Info (PHARMACY MONITORING -- do not chart) 1 each PRN DAILY PRN MC SEE COMMENTS ; Start 02/16/17 at 06:45; Stop 02/16/17 at 09:19; Status DC Albumin Human 100 ml @ 100 mls/hr 1X ONCE IV Last administered on 02/16/17 07:18; Start 02/16/17 at 07:00; Stop 02/16/17 at 07:59; Status DC Piperacillin Sod/ Tazobactam Sod 2.25 gm/Sodium Chloride 50 ml @ 100 mls/hr Q8HRS IV Last administered on 02/18/17 05:55; Start 02/16/17 at 14:00; Stop at 07:22; Status DC Daptomycin 340 mg/ Sodium Chloride 50 ml @ 100 mls/hr QODAY IV Last administered on 02/17/17 12:22; Start 02/17/17 at 09:00; Stop 02/18/17 at 07:22 ; Status DC Sodium Chloride 1,000 ml @ 1,000 mls/hr Q1H PRN IV hypotension; Start 02/17/17 at 08:30; Stop 02/17/17 at 16:00; Status DC Albumin Human 200 ml @ 200 mls/hr 1X PRN PRN IV Hypotension; Start 02/17/17 at 08:30; Stop 02/17/17 at 16:00; Status DC Sodium Chloride 1,000 ml @ 400 mls/hr Q2H30M PRN IV PATENCY; Start 02/17/17 at 08:30; Stop 02/17/17 at 16:00; Status DC Info (PHARMACY MONITORING -- do not chart) 1 each PRN DAILY PRN MC SEE COMMENTS ; Start 02/17/17 at 08:30; Status UNV Info (PHARMACY MONITORING -- do not chart) 1 each PRN DAILY PRN MC SEE COMMENTS ; Start 02/17/17 at 08:30; Status UNV Heparin Sodium (Porcine) (Heparin Sq) 5,000 unit Q8HRS SQ Last administered on 02/22/17 05:49; Start 02/17/17 at 14:00; Stop 02/22/17 at 14:24; Status DC Bisacodyl (Dulcolax Supp) 10 mg PRN DAILY PRN [place] CONSTIPATION; Start 02/17/17 at 15:00 Polyethylene Glycol (miraLAX PACKET) 17 gm PRN DAILY PRN FT CONSTIPATION; Start 02/17/17 at 15:00 Levetiracetam 500 mg/Sodium Chloride 100 ml @ 400 mls/hr Q12HR IV Last administered on 02/27/17 09:18; Start 02/17/17 at 21:00 Vancomycin HCl (Vanco Per Pharmacy) 1 each PRN DAILY PRN MC SEE COMMENTS Last administered on 02/27/17 10:12; Start 02/18/17 at 07:30 Vancomycin HCl 1.5 gm/Sodium Chloride 500 ml @ 250 mls/hr 1X ONCE IV Last administered on 02/18/17 14:43; Start 02/18/17 at 14:30; Stop 02/18/17 at 16:29 ; Status DC Vancomycin HCl 1 each 1X ONCE MC Last administered on 02/20/17 05:00; Start 02/20/17 at 05:00; Stop 02/20/17 at 05:01; Status DC Sodium Chloride 1,000 ml @ 1,000 mls/hr Q1H PRN IV hypotension; Start 02/19/17 at 09:08; Stop 02/19/17 at 15:07; Status DC Albumin Human 200 ml @ 200 mls/hr 1X PRN PRN IV Hypotension; Start 02/19/17 at 09:15; Stop 02/19/17 at 15:14; Status DC Sodium Chloride 1,000 ml @ 400 mls/hr Q2H30M PRN IV PATENCY; Start 02/19/17 at 09:08; Stop 02/19/17 at 21:07; Status DC Info (PHARMACY MONITORING -- do not chart) 1 each PRN DAILY PRN MC SEE COMMENTS ; Start 02/19/17 at 09:15; Stop 02/19/17 at 09:17; Status DC Info (PHARMACY MONITORING -- do not chart) 1 each PRN DAILY PRN MC SEE COMMENTS ; Start 02/19/17 at 09:15; Stop 02/20/17 at 12:35; Status DC Vancomycin HCl 500 mg/Sodium Chloride 100 ml @ 100 mls/hr QMWF IV Last administered on 02/24/17t 16:10; Start 02/21/17 at 16:00; Stop 02/26/17 at 09:11 ; Status DC Sodium Chloride 1,000 ml @ 1,000 mls/hr Q1H PRN IV hypotension; Start 02/21/17 at 08:14; Stop 02/21/17 at 14:13; Status DC Diphenhydramine HCl (Benadryl) 25 mg 1X PRN PRN IV ITCHING; Start 02/21/17 at 08:15; Stop 02/22/17 at 08:14; Status DC Diphenhydramine HCl (Benadryl) 25 mg 1X PRN PRN IV ITCHING; Start 02/21/17 at 08:15; Stop 02/22/17 at 08:14; Status DC Sodium Chloride (Normal Saline Flush) 10 ml 1X PRN PRN IV AP catheter pack; Start 02/21/17 at 08:15; Stop 02/22/17 at 08:14; Status DC Sodium Chloride (Normal Saline Flush) 10 ml 1X PRN PRN IV [employer] catheter pack; Start 02/21/17 at 08:15; Stop 02/22/17 at 08:14; Status DC Sodium Chloride 1,000 ml @ 400 mls/hr Q2H30M PRN IV PATENCY; Start 02/21/17 at 08:14; Stop 02/21/17 at 20:13; Status DC Info (PHARMACY MONITORING -- do not chart) 1 each PRN DAILY PRN MC SEE COMMENTS ; Start 02/21/17 at 08:15; Stop 02/24/17 at 08:29; Status DC Sodium Chloride 1,000 ml @ 1,000 mls/hr Q1H PRN IV hypotension; Start 02/24/17 at 08:19; Stop 02/24/17 at 14:18; Status DC Albumin Human 200 ml @ 200 mls/hr 1X PRN PRN IV Hypotension Last administered on 02/24/17 10:12; Start 02/24/17 at 08:30; Stop 02/24/17 at 14:29; Status DC Acetaminophen (Tylenol) 500 mg 1X PRN PRN PO MILD PAIN / TEMP; Start 02/24/17 at 08:30; Stop 02/25/17 at 08:29; Status DC Diphenhydramine HCl (Benadryl) 25 mg 1X PRN PRN IV ITCHING; Start 02/24/17 at 08:30; Stop 02/25/17 at 08:29; Status DC Diphenhydramine HCl (Benadryl) 25 mg 1X PRN PRN IV ITCHING; Start 02/24/17 at 08:30; Stop 02/25/17 at 08:29; Status DC Labetalol HCl (Normodyne) 10 mg PRN Q1HR PRN IVP SBP > 180; Start 02/24/17 at 08:30; Stop 02/25/17 at 08:29; Status DC Info (PHARMACY MONITORING -- do not chart) 1 each PRN DAILY PRN MC SEE COMMENTS ; Start 02/24/17 at 08:30 Albumin Human 200 ml @ 100 mls/hr 1X ONCE IV Last administered on 02/24/17 09:51; Start 02/24/17 at 09:45; Stop 02/24/17 at 11:44; Status DC Methylprednisolone Sodium Succinate (SOLU-Medrol 125MG VIAL) 50 mg BID IV Last administered on 02/25/17 08:28; Start 02/24/17 at 21:00; Stop 02/25/17 at 11:12 ; Status DC Fentanyl Citrate (Fentanyl 2ml Vial) 50 mcg 1X ONCE IM ; Start 02/24/17 at 11: 30; Stop 02/24/17 at 11:31; Status Cancel Fentanyl Citrate 30 ml @ 0 mls/hr CONT PRN PRN IV PROTOCOL; Start 02/24/17 at 11:30; Stop 02/24/17 at 16:18; Status DC Fentanyl Citrate (Fentanyl 2ml Vial) 50 mcg 1X ONCE IV Last administered on 12:57; Start 02/24/17 at 13:00; Stop 02/24/17 at 13:01; Status DC Fentanyl Citrate (Fentanyl 2ml Vial) 25 mcg PRN Q4HRS PRN IV PAIN Last administered on 02/27/17 03:51; Start 02/24/17 at 16:30 Vancomycin HCl 1 each 1X ONCE MC ; Start 02/26/17 at 05:00; Stop 02/26/17 at 05 :01; Status DC Darbepoetin David (Aranesp) 60 mcg [id number] SQ Last administered on 02/25/17 20 :44; Start 02/25/17 at 21:00 Methylprednisolone Sodium Succinate (SOLU-Medrol 40MG VIAL) 20 mg BID IV Last administered on 02/26/17 08:50; Start 02/25/17 at 21:00; Stop 02/26/17 at 12:13 ; Status DC Sodium Chloride 1,000 ml @ 1,000 mls/hr Q1H PRN IV hypotension; Start 02/26/17 at 08:15; Stop 02/26/17 at 14:14; Status DC Diphenhydramine HCl (Benadryl) 25 mg 1X PRN PRN IV ITCHING; Start 02/26/17 at 08:15; Stop 02/27/17 at 08:14; Status UNV Diphenhydramine HCl (Benadryl) 25 mg 1X PRN PRN IV ITCHING; Start 02/26/17 at 08:15; Stop 02/27/17 at 08:14; Status DC Sodium Chloride (Normal Saline Flush) 10 ml 1X PRN PRN IV AP catheter pack; Start 02/26/17 at 08:15; Stop 02/27/17 at 08:14; Status DC Sodium Chloride (Normal Saline Flush) 10 ml 1X PRN PRN IV RESOURCE CONSERVATION SPECIALIST catheter pack; Start 02/26/17 at 08:15; Stop 02/27/17 at 08:14; Status DC Sodium Chloride 1,000 ml @ 400 mls/hr Q2H30M PRN IV PATENCY; Start 02/26/17 at 08:15; Stop 02/26/17 at 20:14; Status DC Info (PHARMACY MONITORING -- do not chart) 1 each PRN DAILY PRN MC SEE COMMENTS ; Start 02/26/17 at 08:15; Status UNV Vancomycin HCl 500 mg/Sodium Chloride 100 ml @ 100 mls/hr QMWF IV ; Start 02/28 at 16:00 Vancomycin HCl 750 mg/Sodium Chloride 250 ml @ 250 mls/hr 1X ONCE IV Last administered on 02/26/17t 15:49; Start 02/26/17 at 16:00; Stop 02/26/17 at 16:59 ; Status DC Methylprednisolone Sodium Succinate (SOLU-Medrol 40MG VIAL) 20 mg QD IV Last administered on 02/27/17 09:15; Start 02/27/17 at 09:00 Vancomycin HCl 500 mg/Sodium Chloride 100 ml @ 100 mls/hr 1X ONCE IV ; Start 02/27/17 at 16:00; Stop 02/27/17 at 16:59 Mirtazapine (Remeron) 15 mg QHS PO ; Start 02/27/17 at 21:00 Lurasidone HCl (Latuda) 20 mg AFTRNOON PO ; Start 02/27/17 at 13:00 Non-Formulary Medication 60 mg BID PO ; Start 02/27/17 at 21:00; Status UNV Active Scripts Active Reported Latuda (Lurasidone Hcl) 20 Mg Tablet 20 Mg PO AFTRNOON Remeron (Mirtazapine) 15 Mg Tablet 1 Tab PO QHS Oxybutynin Chloride Er (Oxybutynin Chloride) 10 Mg Tab.er.24 1 Tab PO DAILY Multivitamins (Multivitamin) 1 Each Tablet 1 Tab PO DAILY Latuda (Lurasidone Hcl) 20 Mg Tablet 10 Mg PO AFTRNOON Lorazepam 0.5 Mg Tablet 1 Tab PO QEVNG Duoneb 0.5-3(2.5) Mg/3 Ml (Albuterol/Ipratropium) 3 Ml Ampul.neb 3 Ml NEB BID Duoneb 0.5-3(2.5) Mg/3 Ml (Albuterol/Ipratropium) 3 Ml Ampul.neb 3 Ml NEB Q4H PRN Calcium Carbonate 500 Mg Tablet 1,000 Mg PO Q4HRS PRN Nicotine Gum (Nicotine Polacrilex) 4 Mg Gum 4 Mg BC Milk Of Magnesia (Magnesium Hydroxide) 400 Mg/5 Ml Oral.susp 400 Mg PO Q3DAYS PRN Milk Of Magnesia (Magnesium Hydroxide) 400 Mg/5 Ml Oral.susp 400 Mg PO Q3DAYS PRN Lorazepam 1 Mg Tablet 1 Tab PO Q12HR PRN Ibuprofen 400 Mg Tablet 200 Mg PO Q8HRS PRN Cough Drops (Eucalyptus Oil/Menthol) 7 Mg Lozenge 7 Mg MM Q4HRS PRN Tylenol (Acetaminophen) 325 Mg Tablet 650 Mg PO Q4HRS PRN Lovaza ([place]-3 Acid Ethyl Esters) 1 Gm Capsule 1 Cap PO QID Gabapentin 400 Mg Capsule 400 Mg PO QID Lorazepam 1 Mg Tablet 1 Tab PO BID Latuda (Lurasidone Hcl) 60 Mg Tablet 60 Mg PO BID Advair 100-50 Diskus (Fluticasone/Salmeterol) 1 Each Disk.w.dev 1 Puff IH BID Acetaminophen 325 Mg Capsule 650 Mg PO BID Vitamin D (Cholecalciferol (Vitamin D3)) 2,000 Unit Capsule 800 Unit PO DAILY Vitals/I & O Vital Sign - Last 24 Hours 02/26/17 02/26/17 02/26/17 02/26/17 11:00 12:00 12:00 12:49 Temp 99.3 99.3 Pulse 94 101 Resp 21 22 B/P (MAP) 102/74 (83) 147/79 (101) Pulse Ox 100 99 97 O2 Delivery Ventilator Mechanical Ventilator Ventilator Ventilator 02/26/17 02/26/17 02/26/17 02/26/17 13:00 13:25 14:00 15:00 Pulse 114 96 99 Resp 30 23 16 21 B/P (MAP) 143/78 (99) 134/73 (93) 146/82 (103) Pulse Ox 98 99 97 99 O2 Delivery Ventilator Ventilator Ventilator Ventilator 02/26/17 02/26/17 02/26/17 02/26/17 15:12 15:56 15:57 16:45 Temp 99.8 99.8 Pulse 108 Resp 29 B/P (MAP) 144/85 (104) Pulse Ox 98 98 95 O2 Delivery Ventilator Mechanical Ventilator Ventilator Ventilator 02/26/17 02/26/17 02/26/17 02/26/17 17:00 18:10 19:00 19:25 Pulse 112 96 89 Resp 30 16 16 B/P (MAP) 186/87 (120) 103/56 (72) 112/68 (83) Pulse Ox 97 96 98 100 O2 Delivery Ventilator Ventilator Ventilator Ventilator 02/26/17 02/26/17 02/26/17 9/20/17 20:00 20:00 21:00 22:00 Temp 98.8 98.8 Pulse 102 104 94 Resp 16 16 16 B/P (MAP) 148/84 (105) 156/77 (103) 149/72 (97) Pulse Ox 98 98 100 O2 Delivery Mechanical Ventilator Ventilator Ventilator Ventilator 02/26/17 02/26/17 02/26/17 02/26/17 23:00 23:20 23:48 23:59 Pulse 102 Resp 16 22 B/P (MAP) 155/81 (105) Pulse Ox 100 100 99 O2 Delivery Ventilator Ventilator Ventilator Mechanical Ventilator 02/26/17 02/27/17 02/27/17 02/27/17 23:59 01:01 01:40 02:00 Temp 98.6 98.6 Pulse 97 93 102 Resp 16 16 16 B/P (MAP) 138/68 (91) 134/65 (88) 148/83 (104) Pulse Ox 98 98 100 98 O2 Delivery Ventilator Ventilator Ventilator Ventilator 02/27/17 02/27/17 02/27/17 02/27/17 03:00 03:32 03:51 04:00 Temp 98.8 98.8 Pulse 107 110 Resp 16 20 16 B/P (MAP) 150/76 (100) 137/66 (89) Pulse Ox 98 100 98 100 O2 Delivery Ventilator Ventilator Ventilator Ventilator O2 Flow Rate 35.0 02/27/17 02/27/17 02/27/17 02/27/17 04:00 04:21 05:00 05:29 Pulse 108 Resp 16 16 B/P (MAP) Pulse Ox 100 99 100 O2 Delivery Mechanical Ventilator Ventilator Ventilator Ventilator O2 Flow Rate 35.0 02/27/17 02/27/17 02/27/17 02/27/17 06:00 07:00 07:20 08:57 Pulse 112 100 Resp 16 16 B/P (MAP) 150/76 (100) 150/78 (102) Pulse Ox 97 98 100 97 O2 Delivery Ventilator Ventilator Ventilator Ventilator HOANG DUMONT III DO Feb 27, 2017 11:02
--- NOTE | 2017-02-27 12:06 | PDOC ---
PULMONARY PROGRESS NOTES Subjective on vent, does not follow any commands, withdraws to pain new fever 101F Vitals Vital Signs Date Time Temp Pulse Resp B/P (MAP) Pulse Ox O2 Delivery O2 Flow Rate FiO2 02/27/17 11:00 99 Ventilator 02/27/17 07:00 100 16 150/78 (102) 02/27/17 04:21 35.0 02/27/17 04:00 98.8 98.8 Comments ros, discussed w rn, as mentioned as above other sys otherwise neg Lungs: Clear Cardiovascular: S1, S2 Abdomen: Soft, Non-tender Extremities: Other (1+ edema) Skin: Warm, Dry Labs Laboratory Tests Test 02/25/17 13:21 02/25/17 16:51 02/25/17 23:49 02/26/17 05:22 Glucose (Fingerstick) 145 mg/dL (70-99) 143 mg/dL (70-99) 132 mg/dL (70-99) White Blood Count 23.8 x10^3/uL (4.0-11.0) Red Blood Count 2.81 x10^6/uL (3.50-5.40) Hemoglobin 8.9 g/dL (12.0-15.5) Hematocrit 25.8 % (36.0-47.0) Mean Corpuscular Volume 92 fL (79-100) Mean Corpuscular Hemoglobin 32 pg (25-35) Mean Corpuscular Hemoglobin Concent 34 g/dL (31-37) Red Cell Distribution Width 14.7 % (11.5-14.5) Platelet Count 178 x10^3/uL (140-400) Neutrophils (%) (Auto) 94 % (31-73) Lymphocytes (%) (Auto) 2 % (24-48) Monocytes (%) (Auto) 4 % (0-9) Eosinophils (%) (Auto) 0 % (0-3) Basophils (%) (Auto) 0 % (0-3) Neutrophils # (Auto) 22.5 x10^3uL (1.8-7.7) Lymphocytes # (Auto) 0.4 x10^3/uL (1.0-4.8) Monocytes # (Auto) 0.9 x10^3/uL (0.0-1.1) Eosinophils # (Auto) 0.0 x10^3/uL (0.0-0.7) Basophils # (Auto) 0.0 x10^3/uL (0.0-0.2) Sodium Level 134 mmol/L (136-145) Potassium Level 4.5 mmol/L (3.5-5.1) Chloride Level 97 mmol/L (98-107) Carbon Dioxide Level 27 mmol/L (21-32) Anion Gap 10 (6-14) Blood Urea Nitrogen 125 mg/dL (7-20) Creatinine 4.2 mg/dL (0.6-1.0) Estimated GFR (Cockcroft-Gault) 13.3 Glucose Level 136 mg/dL (70-99) Calcium Level 8.1 mg/dL (8.5-10.1) Random Vancomycin Level 14.1 mcg/mL Test 02/26/17 05:27 02/26/17 16:02 02/26/17 23:46 02/27/17 05:31 Glucose (Fingerstick) 127 mg/dL (70-99) 123 mg/dL (70-99) 92 mg/dL (70-99) 96 mg/dL (70-99) Test 02/27/17 05:35 White Blood Count 15.6 x10^3/uL (4.0-11.0) Red Blood Count 2.60 x10^6/uL (3.50-5.40) Hemoglobin 8.4 g/dL (12.0-15.5) Hematocrit 24.3 % (36.0-47.0) Mean Corpuscular Volume 94 fL (79-100) Mean Corpuscular Hemoglobin 32 pg (25-35) Mean Corpuscular Hemoglobin Concent 35 g/dL (31-37) Red Cell Distribution Width 14.9 % (11.5-14.5) Platelet Count 166 x10^3/uL (140-400) Neutrophils (%) (Auto) 94 % (31-73) Lymphocytes (%) (Auto) 2 % (24-48) Monocytes (%) (Auto) 4 % (0-9) Eosinophils (%) (Auto) 0 % (0-3) Basophils (%) (Auto) 0 % (0-3) Neutrophils # (Auto) 14.7 x10^3uL (1.8-7.7) Lymphocytes # (Auto) 0.3 x10^3/uL (1.0-4.8) Monocytes # (Auto) 0.6 x10^3/uL (0.0-1.1) Eosinophils # (Auto) 0.0 x10^3/uL (0.0-0.7) Basophils # (Auto) 0.0 x10^3/uL (0.0-0.2) Segmented Neutrophils % 88 % (35-66) Band Neutrophils % 7 % (0-9) Lymphocytes % 1 % (24-48) Monocytes % 4 % (0-10) Platelet Estimate Adequate (ADEQUATE) Sodium Level 134 mmol/L (136-145) Potassium Level 4.4 mmol/L (3.5-5.1) Chloride Level 98 mmol/L (98-107) Carbon Dioxide Level 29 mmol/L (21-32) Anion Gap 7 (6-14) Blood Urea Nitrogen 94 mg/dL (7-20) Creatinine 3.4 mg/dL (0.6-1.0) Estimated GFR (Cockcroft-Gault) 17.0 Glucose Level 102 mg/dL (70-99) Calcium Level 8.0 mg/dL (8.5-10.1) Laboratory Tests Test 02/26/17 16:02 02/26/17 23:46 02/27/17 05:31 02/27/17 05:35 Glucose (Fingerstick) 123 mg/dL (70-99) 92 mg/dL (70-99) 96 mg/dL (70-99) White Blood Count 15.6 x10^3/uL (4.0-11.0) Red Blood Count 2.60 x10^6/uL (3.50-5.40) Hemoglobin 8.4 g/dL (12.0-15.5) Hematocrit 24.3 % (36.0-47.0) Mean Corpuscular Volume 94 fL (79-100) Mean Corpuscular Hemoglobin 32 pg (25-35) Mean Corpuscular Hemoglobin Concent 35 g/dL (31-37) Red Cell Distribution Width 14.9 % (11.5-14.5) Platelet Count 166 x10^3/uL (140-400) Neutrophils (%) (Auto) 94 % (31-73) Lymphocytes (%) (Auto) 2 % (24-48) Monocytes (%) (Auto) 4 % (0-9) Eosinophils (%) (Auto) 0 % (0-3) Basophils (%) (Auto) 0 % (0-3) Neutrophils # (Auto) 14.7 x10^3uL (1.8-7.7) Lymphocytes # (Auto) 0.3 x10^3/uL (1.0-4.8) Monocytes # (Auto) 0.6 x10^3/uL (0.0-1.1) Eosinophils # (Auto) 0.0 x10^3/uL (0.0-0.7) Basophils # (Auto) 0.0 x10^3/uL (0.0-0.2) Segmented Neutrophils % 88 % (35-66) Band Neutrophils % 7 % (0-9) Lymphocytes % 1 % (24-48) Monocytes % 4 % (0-10) Platelet Estimate Adequate (ADEQUATE) Sodium Level 134 mmol/L (136-145) Potassium Level 4.4 mmol/L (3.5-5.1) Chloride Level 98 mmol/L (98-107) Carbon Dioxide Level 29 mmol/L (21-32) Anion Gap 7 (6-14) Blood Urea Nitrogen 94 mg/dL (7-20) Creatinine 3.4 mg/dL (0.6-1.0) Estimated GFR (Cockcroft-Gault) 17.0 Glucose Level 102 mg/dL (70-99) Calcium Level 8.0 mg/dL (8.5-10.1) Medications Active Scripts Medications Dose Route/Sig Max Daily Dose Days Date Category Latuda (Lurasidone Hcl) 20 Mg Tablet 20 Mg PO AFTRNOON 02/12/17 Reported Remeron (Mirtazapine) 15 Mg Tablet 1 Tab PO QHS 02/12/17 Reported Oxybutynin Chloride Er (Oxybutynin Chloride) 10 Mg Tab.er.24 1 Tab PO DAILY 02/12/17 Reported Multivitamins (Multivitamin) 1 Each Tablet 1 Tab PO DAILY 02/12/17 Reported Latuda (Lurasidone Hcl) 20 Mg Tablet 10 Mg PO AFTRNOON 02/12/17 Reported Lorazepam 0.5 Mg Tablet 1 Tab PO QEVNG 02/12/17 Reported Duoneb 0.5-3(2.5) Mg/3 Ml (Albuterol/Ipratropium) 3 Ml Ampul.neb 3 Ml NEB BID 02/12/17 Reported Duoneb 0.5-3(2.5) Mg/3 Ml (Albuterol/Ipratropium) 3 Ml Ampul.neb 3 Ml NEB Q4H PRN 02/12/17 Reported Calcium Carbonate 500 Mg Tablet 1,000 Mg PO Q4HRS PRN 02/12/17 Reported Nicotine Gum (Nicotine Polacrilex) 4 Mg Gum 4 Mg BC 02/12/17 Reported Milk Of Magnesia (Magnesium Hydroxide) 400 Mg/5 Ml Oral.susp 400 Mg PO Q3DAYS PRN 02/12/17 Reported Milk Of Magnesia (Magnesium Hydroxide) 400 Mg/5 Ml Oral.susp 400 Mg PO Q3DAYS PRN 02/12/17 Reported Lorazepam 1 Mg Tablet 1 Tab PO Q12HR PRN 02/12/17 Reported Ibuprofen 400 Mg Tablet 200 Mg PO Q8HRS PRN 02/12/17 Reported Cough Drops (Eucalyptus Oil/Menthol) 7 Mg Lozenge 7 Mg MM Q4HRS PRN 02/12/17 Reported Tylenol (Acetaminophen) 325 Mg Tablet 650 Mg PO Q4HRS PRN 02/12/17 Reported Lovaza ([place]-3 Acid Ethyl Esters) 1 Gm Capsule 1 Cap PO QID 02/12/17 Reported Gabapentin 400 Mg Capsule 400 Mg PO QID 02/12/17 Reported Lorazepam 1 Mg Tablet 1 Tab PO BID 02/12/17 Reported Latuda (Lurasidone Hcl) 60 Mg Tablet 60 Mg PO BID 02/12/17 Reported Advair 100-50 Diskus (Fluticasone/Salmeterol) 1 Each Disk.w.dev 1 Puff IH BID 02/12/17 Reported Acetaminophen 325 Mg Capsule 650 Mg PO BID 02/12/17 Reported Vitamin D (Cholecalciferol (Vitamin D3)) 2,000 Unit Capsule 800 Unit PO DAILY 02/12/17 Reported Comments cxr reviewed 02/27 no INFILTRATES, Impression . 1. Acute respiratory failure, sec to out of hospital arrest 2. Acute toxic/metabolic/ anoxic encephalopathy (pre-dominant) 3. Status post cardiopulmonary arrest. She had asystole. anoxic brain injury 4. Abnormal echocardiogram with ejection fraction of 35%. 5. Hyponatremia, improving 6. Abnormal LFTs secondary to hypoperfusion. 7. Acute renal failure.on HD 8. Shock, combination of cardiogenic,septic/ OFF PRESSOR 9. MRSA bactremia/ sepsis 10. Marked leukocytosis, ?steroids induced vs sepsis vs leukemoid reaction, improving with steroid taper 11. Anemia, s/p Tx, no bleeding 12. DAYRA, HD 13. Marked leukocytosis, improved post reducing dose to steroids 14. New Fever 02/27, suspect line related vs ? shingles related Plan . cont vent support, vent setting reviewed, prn narcotics transfuse PRBC prn with HD , follow Hb. improved post Tx HD CONTINUE SUPPORT FOR NOW CXR REVIEWD, no new findings CT HEAD NOTHING NEW NUTRITION VIA TF PROGNOSIS IS POOR FOR MEANINGFUL RECOVERY. LETTER WRITTEN TO COURT / DPOA appointed COURT APPOINTED DPOA TO DO MEETING WITH DR ARAGON FRIDAY. I WOULD RECOMMEND WITHDRAWL OF CARE AND ALLOW NATURAL ANTIBX PER ID/ follow new BC/ May need lines to be changed TAPER STEROIDS/ WBC TRENDING DOWN FOLLOW NEURO INPUT D/W RN/RT NEVA FALCON MD Feb 27, 2017 12:06
[2017-02-27 12:29] LABS: HCO3 ABG 23 mmol/L (21-28); PCO2 ABG 36 mmHg (35-46); PH ABG 7.43 (7.35-7.45); PO2 ABG 101 mmHg (75-108); SAT O2 ABG 97 % (92-99)
[2017-02-27 12:30] LABS: CORRECTED PCO2 ABG 38 mmHg; CORRECTED PH ABG 7.41; CORRECTED PO2 ABG 109 mmHg
[2017-02-27 12:33] LABS: FIO2 ABG 40
[2017-02-27] MEDS: valACYclovir 500 MG TABLET. PO SCH ×2 (13:01→20:47)
[2017-02-27] MEDS: LURASIDONE 40 MG TABLET. PO SCH ×2 (13:01→17:20)
--- NOTE | 2017-02-27 13:16 | PDOC2 ---
PALLIATIVE CARE Palliative Care Note Palliative Care Patient alert at times. Complains of being hungry and thirsty. Oral care provided. Not oriented to place and time Met with daughters Ade; Amalia and Silvia per phone. Thanh/son not able to attend Reviewed medical condition: At [facility] on admission treated with Cardizem--now SR; CHF diastolic EF 55-60%; Respiratory Failure now off BiPap; Encephalopathy -- some improvement; HTN treated with medications. Swallow evaluation --concerns about aspiration. elevated WBC--off steroids-- counts continue to rise; Prognosis guarded. Reviewed Labs and Imaging. More results pending. Patient lives with Ade. Wears oxygen at night. Shannon important part of her life: [employer] Afraid of being a burden to family. Six weeks ago she was able to dress herself ; ambulated with walker/cane--going out to dinner with friends. good appetite; no recent falls; Patient had occ. cough. Sleeping on her side aggravated her cough. 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 She and her family are from [place]. Confirmed Code Status: DNR/DNI. Outside the Hospital DNR/DNI form signed by Ade. Patient apparently has AD. Unable to locate it at this time. Per Silvia she is the DPOA. Patient would never want a feeding tube, If she were unable to return back to a reasonable quality of life she would be say "let me go" Discussed goals of care; Continue current treatment plan to see if she could improve vs comfort care vs full aggressive care. Family would like to continue treatment in hopes of finding reason for elevated WBC. DNR/DNI. TPN for nutrition; No Peg tube. Will continue follow patient. Maren WARD aware of plan. ARABELLA COLEMAN Feb 27, 2017 13:16
[2017-02-27] MEDS ORDERED: IV NORMAL SALINE 1000ML BAG 1,000 ML IV PRN ×2 (13:50)
[2017-02-27] MEDS ORDERED: ALBUMIN HUMAN 25% 200 ML IV ONE (14:00)
[2017-02-27] MEDS ORDERED: DIALYSIS PATIENT. MC PRN (14:00)
[2017-02-27] MEDS ORDERED: VANCOMYCIN 500 MG in IV NORMAL SALINE 100ML 100 ML IV ONE (16:00)
[2017-02-27] MEDS: MIRTAZAPINE 15 MG TABLET PO SCH (20:47)
[2017-02-28] VITALS (24 sets, daily range): BP systolic 113–163; BP diastolic 59–91
[2017-02-28] MEDS: IV DEXTROSE 5 %-0.2 % NACL 1,000 ML IV SCH (05:40)
[2017-02-28 06:35] LABS: CALCIUM 8.2 mg/dL (8.5-10.1); CREATININE 2.6 mg/dL (0.6-1.0); GFR 23.2; POTASSIUM 4.4 mmol/L (3.5-5.1)
[2017-02-28 07:52] LABS: BASO % 1 % (0-3); EOS % 1 % (0-3); LYMPH # 0.2 x10^3/uL (1.0-4.8); LYMPH % 3 % (24-48); MEAN CORPUSCULAR HEMOGLOBIN 33 pg (25-35); MEAN CORPUSCULAR HGB CONC 34 g/dL (31-37); MEAN CORPUSCULAR VOLUME 97 fL (79-100); MONO % 3 % (0-9); NEUT % 93 % (31-73); PLATELET COUNT 122 x10^3/uL (140-400); RED BLOOD COUNT 1.84 x10^6/uL (3.50-5.40); RED CELL DISTRIBUTION WIDTH 17.7 % (11.5-14.5); WHITE BLOOD COUNT 7.9 x10^3/uL (4.0-11.0)
[2017-02-28 08:04] LABS: HEMOGLOBIN 6.1 g/dL (12.0-15.5)
[2017-02-28 08:05] LABS: HEMATOCRIT 18.2 % (36.0-47.0)
--- NOTE | 2017-02-28 08:06 | PDOC ---
Infectious Disease Note Subjective Subjective awake Intubated, FiO2 35% ROS ROS unable to do Vital Sign Vital Signs Vital Signs Date Time Temp Pulse Resp B/P (MAP) Pulse Ox O2 Delivery O2 Flow Rate FiO2 02/28/17 07:52 100 Ventilator 02/28/17 07:00 85 18 158/76 (103) 02/28/17 04:00 98.7 98.7 Physical Exam PHYSICAL EXAM GENERAL: NAD, Alert HEENT: PERRL, OC/OP NECK: Supple, no JVD, no LN LUNGS: Clear HEART: S1S2, no gallop, no murmur ABD: Soft, NT, no organomegaly, no rebound EXT: No edema, no cyanosis LAW OFFICE ASSISTANT: Alert, on vent SKIN: rash is not consistent with shingles IV: ok Labs Lab Laboratory Tests Test 02/27/17 12:15 02/28/17 02:44 02/28/17 05:50 02/28/17 06:10 O2 Saturation 97 % (92-99) Arterial Blood pH 7.43 (7.35-7.45) Arterial Blood pH (Temp corrected) 7.41 Arterial Blood pCO2 at Patient Temp 36 mmHg (35-46) Arterial Blood pCO2 (Temp correct) 38 mmHg Arterial Blood pO2 at Patient Temp 101 mmHg (75-108) Arterial Blood pO2 (Temp corrected) 109 mmHg Arterial Blood HCO3 23 mmol/L (21-28) Arterial Blood Base Excess -1 mmol/L (-3-3) FiO2 40 Glucose (Fingerstick) 101 mg/dL (70-99) 106 mg/dL (70-99) Sodium Level 135 mmol/L (136-145) Potassium Level 4.4 mmol/L (3.5-5.1) Chloride Level 99 mmol/L (98-107) Carbon Dioxide Level 30 mmol/L (21-32) Anion Gap 6 (6-14) Blood Urea Nitrogen 71 mg/dL (7-20) Creatinine 2.6 mg/dL (0.6-1.0) Estimated GFR (Cockcroft-Gault) 23.2 Glucose Level 109 mg/dL (70-99) Calcium Level 8.2 mg/dL (8.5-10.1) Micro BC MRSA Objective Assessment Fever - better - procalcitonin mild elevation MRSA sepsis/bacteremia, POA. 02/12. -TTE no evidence veg; Repeat BC from 02/15 negative Anemia Encephalopathy S/P Cardiac arrest Respiratory failure COPD Leukocytosis, on steroids, trending up DARYA. Now on HD Schizophrenia MRSA nares positive Plan Plan of Care Cont Vanc Await court decision Needs DNR/DNI Needs palliative extubation as overall prognosis is poor MILAGROS GREER MD Feb 28, 2017 08:06
--- NOTE | 2017-02-28 09:14 | PDOC ---
SUBJECTIVE ROS DARYA/ ATN unable to obtain ROS due to underlying encephalopathy and intubated state OBJECTIVE Vital Signs Vital Signs Date Time Temp Pulse Resp B/P (MAP) Pulse Ox O2 Delivery O2 Flow Rate FiO2 02/28/17 07:52 100 Ventilator 02/28/17 07:00 85 18 158/76 (103) 02/28/17 04:00 98.7 98.7 PHYSICAL EXAM Physical Exam GEN: min sedated but rel unresponsive on the Vent EYES: Sclera Anicteric, Conjunctiva Normal EN: No EN Drainage, Mucous Membranes moist NECK: + JVD, + JVP, Supple, no palp Thyromegaly CVS: S1S2, ? Murmur, No Gallop, No Rub,+ Edema upper ext RESP: no Rales, no Rhonchi,+ Acc. Muscle Use GI: BS hypo ve, NO Bruit, Non Tender, Non Distended : no CVA tenderness, no Suprapubic Tenderness DIAGNOSIS/ASSESSMENT Assessment & Plan ARF/ ATN : Dialysis as below F 180 NR 3.0 Hrs 3 K 2.5 Ca 140 Na 30 HC03 Qb 350 + Qd 500+ Heparin 0 Units Uf 2-3 Kgs or to dry weight as tolerated May give 25-50 gms of 25% Albumin if needed to maintain Hemodynamic stability Treatment plan reviewed and discussed with casino assistant manager Suspect ^ed BUN is due to TF and ? upper GI Bleed? (although no melena noted) - ANEMIA; Aranesp as ordered, Transfuse as needed - Consider Heme eval Labile BP ? due to level of sedation vs now fever/ SIRS - watch trend and Uf as homer by hemodynamics. Oligo-anuria due to ATN - improving UO. Poor Prognosis and very low likelihood to recover significant Cognition as noted in Neuro notes - await decision for withdrawal of care COMMENT/RELEVANT DATA Meds Current Medications Medications (Trade) Dose Ordered Sig/Bryce Start Time Stop Time Status Last Admin Dose Admin Acetaminophen (Acetaminophen Supp) 650 mg PRN Q6HRS PRN 02/13/17 17:00 Acetaminophen (Tylenol) 500 mg 1X PRN PRN 02/24/17 08:30 02/25/17 08:29 DC Albumin Human 200 ml @ 200 mls/hr 1X ONCE 02/27/17 14:00 02/27/17 14:59 DC 02/27/17 14:11 200 MLS/HR Amino Acids/ Glycerin/ Electrolytes 1,000 ml @ 80 mls/hr [id number] 02/15/17 08:45 02/15/17 15:14 DC 02/15/17 09:32 80 MLS/HR Aspirin (Aspirin) 300 mg DAILY 02/13/17 09:00 02/27/17 09:17 300 MG Bisacodyl (Dulcolax Supp) 10 mg PRN DAILY PRN 02/17/17 15:00 Calcium Chloride 1,000 mg STK-MED ONCE 02/12/17 10:00 02/13/17 16:27 DC Daptomycin 340 mg/ Sodium Chloride 50 ml @ 100 mls/hr QODAY 02/17/17 09:00 02/18/17 07:22 DC 02/17/17 12:22 100 MLS/HR Darbepoetin David (Aranesp) 60 mcg WEEKLYHS 02/25/17 21:00 02/25/17 20:44 60 MCG Dextrose (Dextrose 50%-Water Syringe) 25 gm STK-MED ONCE 02/12/17 10:00 02/13/17 16:27 DC Dextrose/Sodium Chloride 1,000 ml @ 40 mls/hr Q24H 02/15/17 15:15 02/28/17 05:40 40 MLS/HR Diphenhydramine HCl (Benadryl) 25 mg 1X PRN PRN 02/26/17 08:15 02/27/17 08:14 DC Epinephrine HCl (EPINEPHrine SYRINGE) 1 mg STK-MED ONCE 02/12/17 10:00 02/13/17 16:27 DC Famotidine (Pepcid) 20 mg DAILY 02/15/17 09:00 02/27/17 09:15 20 MG Fentanyl Citrate (Fentanyl 2ml Vial) 25 mcg PRN Q4HRS PRN 02/24/17 16:30 02/27/17 17:21 25 MCG Furosemide (Lasix) 40 mg 1X ONCE 02/15/17 08:45 02/15/17 09:18 DC Heparin Sodium (Porcine) (Heparin Sodium) 800 unit PRN Q6HRS PRN 02/13/17 11:45 02/14/17 13:53 DC 02/14/17 02:34 800 UNIT Heparin Sodium (Porcine) (Heparin Sq) 5,000 unit Q8HRS 02/17/17 14:00 02/22/17 14:24 DC 02/22/17 05:49 5,000 UNIT Heparin Sodium/ Dextrose 500 ml @ 16.5 mls/hr CONT PRN 02/13/17 11:45 02/14/17 13:53 DC 02/13/17 12:47 16.5 MLS/HR Heparin Sodium/ Sodium Chloride 6,000 unit 1X ONCE 02/15/17 15:45 02/15/17 15:46 DC Info (Anti-Coagulation Monitoring By Pharmacy) 1 each PRN DAILY PRN 02/13/17 13:00 02/14/17 16:28 DC Info (PHARMACY MONITORING -- do not chart) 1 each PRN DAILY PRN 02/27/17 14:00 Cancel Labetalol HCl (Normodyne) 10 mg PRN Q1HR PRN 02/24/17 08:30 02/25/17 08:29 DC Levetiracetam 500 mg/Sodium Chloride 100 ml @ 400 mls/hr Q12HR 02/17/17 21:00 02/27/17 20:47 400 MLS/HR Lidocaine/Sodium Bicarbonate (Buffered Lidocaine 1%) 3 ml 1X ONCE 02/15/17 15:45 02/15/17 15:46 DC 02/15/17 16:00 3 ML Lorazepam (Ativan) 1 mg PRN Q30MIN PRN 02/12/17 17:00 02/27/17 17:21 1 MG Lurasidone HCl (Latuda) 60 mg BIDWMEALS 02/27/17 17:00 02/27/17 17:20 60 MG Magnesium Sulfate/ Dextrose 50 ml @ 25 mls/hr PRN DAILY PRN 02/13/17 10:45 Meperidine HCl (Demerol) 12.5 mg PRN Q30MIN PRN 02/12/17 17:00 02/25/17 09:24 DC Methylprednisolone Sodium Succinate (SOLU-Medrol 40MG VIAL) 20 mg QD 02/27/17 09:00 02/27/17 12:07 DC 02/27/17 09:15 20 MG Methylprednisolone Sodium Succinate (SOLU-Medrol 125MG VIAL) 50 mg BID 02/24/17 21:00 02/25/17 11:12 DC 02/25/17 08:28 50 MG Mirtazapine (Remeron) 15 mg QHS 02/27/17 21:00 02/27/17 20:47 15 MG Multi-Ingred Cream/Lotion/Oil/ Oint (Artificial Tears Eye Oint) 1 silvestre PRN Q6HRS PRN 02/12/17 17:00 02/23/17 07:34 1 SILVESTRE Norepinephrine Bitartrate 250 ml @ 0 mls/hr CONT PRN 02/14/17 15:30 Cancel Piperacillin Sod/ Tazobactam Sod (Zosyn Per Pharmacy) 1 each PRN DAILY PRN 02/12/17 19:15 02/18/17 07:22 DC Piperacillin Sod/ Tazobactam Sod 2.25 gm/Sodium Chloride 50 ml @ 100 mls/hr Q8HRS 02/16/17 14:00 02/18/17 07:22 DC 02/18/17 05:55 100 MLS/HR Piperacillin Sod/ Tazobactam Sod 3.375 gm/Sodium Chloride 50 ml @ 100 mls/hr Q6HRS 02/12/17 19:30 02/15/17 09:37 DC 02/15/17 05:58 100 MLS/HR Polyethylene Glycol (miraLAX PACKET) 17 gm PRN DAILY PRN 02/17/17 15:00 Propofol 100 ml @ 0 mls/hr CONT PRN 02/12/17 17:00 02/20/17 10:36 DC Sodium Bicarbonate 50 meq STK-MED ONCE 02/12/17 10:00 02/13/17 16:27 DC Sodium Chloride 1,000 ml @ 400 mls/hr Q2H30M PRN 02/27/17 13:50 02/28/17 01:49 DC Sodium Chloride (Normal Saline Flush) 10 ml 1X PRN PRN 02/26/17 08:15 02/27/17 08:14 DC Valacyclovir HCl (Valtrex) 500 mg BID 02/27/17 12:00 02/28/17 08:08 DC 02/27/17 20:47 500 MG Vancomycin HCl (Vanco Per Pharmacy) 1 each PRN DAILY PRN 02/18/17 07:30 02/27/17 10:12 1 EACH Vancomycin HCl 1.5 gm/Sodium Chloride 500 ml @ 250 mls/hr 1X ONCE 02/18/17 14:30 02/18/17 16:29 DC 02/18/17 14:43 250 MLS/HR Vancomycin HCl 500 mg/Sodium Chloride 100 ml @ 100 mls/hr 1X ONCE 02/27/17 16:00 02/27/17 16:59 DC 02/27/17 17:17 100 MLS/HR Vancomycin HCl 750 mg/Sodium Chloride 250 ml @ 250 mls/hr 1X ONCE 02/26/17 16:00 02/26/17 16:59 DC 02/26/17 15:49 250 MLS/HR Vancomycin HCl 1 gm/Sodium Chloride 250 ml @ 250 mls/hr 1X ONCE 02/12/17 19:30 02/12/17 20:29 DC 02/12/17 20:00 250 MLS/HR Vecuronium [place] (Norcuron Bolus) 5 mg PRN Q30MIN PRN 02/13/17 11:15 02/25/17 09:25 DC Warfarin Sodium (Coumadin Per Pharmacy) 1 each PRN DAILY PRN 02/13/17 11:45 Cancel Lab Laboratory Tests Test 02/27/17 12:15 02/28/17 02:44 02/28/17 05:50 02/28/17 06:10 O2 Saturation 97 % (92-99) Arterial Blood pH 7.43 (7.35-7.45) Arterial Blood pH (Temp corrected) 7.41 Arterial Blood pCO2 at Patient Temp 36 mmHg (35-46) Arterial Blood pCO2 (Temp correct) 38 mmHg Arterial Blood pO2 at Patient Temp 101 mmHg (75-108) Arterial Blood pO2 (Temp corrected) 109 mmHg Arterial Blood HCO3 23 mmol/L (21-28) Arterial Blood Base Excess -1 mmol/L (-3-3) FiO2 40 Glucose (Fingerstick) 101 mg/dL (70-99) 106 mg/dL (70-99) White Blood Count 7.9 x10^3/uL (4.0-11.0) Red Blood Count 1.84 x10^6/uL (3.50-5.40) Hemoglobin 6.1 g/dL (12.0-15.5) Hematocrit 18.2 % (36.0-47.0) Mean Corpuscular Volume 97 fL (79-100) Mean Corpuscular Hemoglobin 33 pg (25-35) Mean Corpuscular Hemoglobin Concent 34 g/dL (31-37) Red Cell Distribution Width 17.7 % (11.5-14.5) Platelet Count 122 x10^3/uL (140-400) Neutrophils (%) (Auto) 93 % (31-73) Lymphocytes (%) (Auto) 3 % (24-48) Monocytes (%) (Auto) 3 % (0-9) Eosinophils (%) (Auto) 1 % (0-3) Basophils (%) (Auto) 1 % (0-3) Neutrophils # (Auto) 7.3 x10^3uL (1.8-7.7) Lymphocytes # (Auto) 0.2 x10^3/uL (1.0-4.8) Monocytes # (Auto) 0.3 x10^3/uL (0.0-1.1) Eosinophils # (Auto) 0.1 x10^3/uL (0.0-0.7) Basophils # (Auto) 0.0 x10^3/uL (0.0-0.2) Sodium Level 135 mmol/L (136-145) Potassium Level 4.4 mmol/L (3.5-5.1) Chloride Level 99 mmol/L (98-107) Carbon Dioxide Level 30 mmol/L (21-32) Anion Gap 6 (6-14) Blood Urea Nitrogen 71 mg/dL (7-20) Creatinine 2.6 mg/dL (0.6-1.0) Estimated GFR (Cockcroft-Gault) 23.2 Glucose Level 109 mg/dL (70-99) Calcium Level 8.2 mg/dL (8.5-10.1) ELIAZAR GREER MD Feb 28, 2017 09:14
[2017-02-28] MEDS: FAMOTIDINE 20 MG/2 ML VIAL IVP SCH (09:17)
[2017-02-28] MEDS: LURASIDONE 40 MG TABLET. PO SCH ×3 (09:18→20:44)
[2017-02-28] MEDS: ASPIRIN 300 MG SUPP.RECT PR SCH (09:22)
[2017-02-28] MEDS: VANCOMYCIN PER PHARMACY MC PRN (09:36)
--- NOTE | 2017-02-28 10:07 | PDOC ---
PROGRESS NOTES Assessment Problems Medical Problems: (1) Cardiac arrest Status: Acute (2) Elevated troponin Status: Acute (3) Hyperkalemia Status: Acute (4) Hypoglycemia Status: Acute S/p cardiac pulmonary arrest received hypothermia, CPR 20 minutes. Anoxic encephalopathy. 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 Respiratory failure. Pulmonary infiltrate. Renal failure. Multi-organ failure. Sepsis. Lactic acidosis. Leukocytosis. HTN HLD COPD Anemia HCV, Hx ? Plan Palliative care Poor prognosis, no meaningful recovery possible. Subjective none Objective Vital Signs Date Time Temp Pulse Resp B/P (MAP) Pulse Ox O2 Delivery O2 Flow Rate FiO2 02/28/17 09:27 100 Ventilator 02/28/17 07:00 85 18 158/76 (103) 02/28/17 04:00 98.7 98.7 PHYSICAL EXAM On ventilator, no response Eyes are open, patient appears alert, but does not follow commands or react to visual threat PERRL. No spontaneous eye movements No motor response D.T.R.s 0-1+, plantars silent Review of Relevant I have reviewed the following items reji (where applicable) has been applied. Labs Laboratory Tests Test 02/26/17 16:02 02/26/17 23:46 02/27/17 05:31 02/27/17 05:35 Glucose (Fingerstick) 123 mg/dL (70-99) 92 mg/dL (70-99) 96 mg/dL (70-99) White Blood Count 15.6 x10^3/uL (4.0-11.0) Red Blood Count 2.60 x10^6/uL (3.50-5.40) Hemoglobin 8.4 g/dL (12.0-15.5) Hematocrit 24.3 % (36.0-47.0) Mean Corpuscular Volume 94 fL (79-100) Mean Corpuscular Hemoglobin 32 pg (25-35) Mean Corpuscular Hemoglobin Concent 35 g/dL (31-37) Red Cell Distribution Width 14.9 % (11.5-14.5) Platelet Count 166 x10^3/uL (140-400) Neutrophils (%) (Auto) 94 % (31-73) Lymphocytes (%) (Auto) 2 % (24-48) Monocytes (%) (Auto) 4 % (0-9) Eosinophils (%) (Auto) 0 % (0-3) Basophils (%) (Auto) 0 % (0-3) Neutrophils # (Auto) 14.7 x10^3uL (1.8-7.7) Lymphocytes # (Auto) 0.3 x10^3/uL (1.0-4.8) Monocytes # (Auto) 0.6 x10^3/uL (0.0-1.1) Eosinophils # (Auto) 0.0 x10^3/uL (0.0-0.7) Basophils # (Auto) 0.0 x10^3/uL (0.0-0.2) Segmented Neutrophils % 88 % (35-66) Band Neutrophils % 7 % (0-9) Lymphocytes % 1 % (24-48) Monocytes % 4 % (0-10) Platelet Estimate Adequate (ADEQUATE) Sodium Level 134 mmol/L (136-145) Potassium Level 4.4 mmol/L (3.5-5.1) Chloride Level 98 mmol/L (98-107) Carbon Dioxide Level 29 mmol/L (21-32) Anion Gap 7 (6-14) Blood Urea Nitrogen 94 mg/dL (7-20) Creatinine 3.4 mg/dL (0.6-1.0) Estimated GFR (Cockcroft-Gault) 17.0 Glucose Level 102 mg/dL (70-99) Calcium Level 8.0 mg/dL (8.5-10.1) Test 02/27/17 12:15 02/28/17 02:44 02/28/17 05:50 02/28/17 06:10 O2 Saturation 97 % (92-99) Arterial Blood pH 7.43 (7.35-7.45) Arterial Blood pH (Temp corrected) 7.41 Arterial Blood pCO2 at Patient Temp 36 mmHg (35-46) Arterial Blood pCO2 (Temp correct) 38 mmHg Arterial Blood pO2 at Patient Temp 101 mmHg (75-108) Arterial Blood pO2 (Temp corrected) 109 mmHg Arterial Blood HCO3 23 mmol/L (21-28) Arterial Blood Base Excess -1 mmol/L (-3-3) FiO2 40 Glucose (Fingerstick) 101 mg/dL (70-99) 106 mg/dL (70-99) White Blood Count 7.9 x10^3/uL (4.0-11.0) Red Blood Count 1.84 x10^6/uL (3.50-5.40) Hemoglobin 6.1 g/dL (12.0-15.5) Hematocrit 18.2 % (36.0-47.0) Mean Corpuscular Volume 97 fL (79-100) Mean Corpuscular Hemoglobin 33 pg (25-35) Mean Corpuscular Hemoglobin Concent 34 g/dL (31-37) Red Cell Distribution Width 17.7 % (11.5-14.5) Platelet Count 122 x10^3/uL (140-400) Neutrophils (%) (Auto) 93 % (31-73) Lymphocytes (%) (Auto) 3 % (24-48) Monocytes (%) (Auto) 3 % (0-9) Eosinophils (%) (Auto) 1 % (0-3) Basophils (%) (Auto) 1 % (0-3) Neutrophils # (Auto) 7.3 x10^3uL (1.8-7.7) Lymphocytes # (Auto) 0.2 x10^3/uL (1.0-4.8) Monocytes # (Auto) 0.3 x10^3/uL (0.0-1.1) Eosinophils # (Auto) 0.1 x10^3/uL (0.0-0.7) Basophils # (Auto) 0.0 x10^3/uL (0.0-0.2) Sodium Level 135 mmol/L (136-145) Potassium Level 4.4 mmol/L (3.5-5.1) Chloride Level 99 mmol/L (98-107) Carbon Dioxide Level 30 mmol/L (21-32) Anion Gap 6 (6-14) Blood Urea Nitrogen 71 mg/dL (7-20) Creatinine 2.6 mg/dL (0.6-1.0) Estimated GFR (Cockcroft-Gault) 23.2 Glucose Level 109 mg/dL (70-99) Calcium Level 8.2 mg/dL (8.5-10.1) Laboratory Tests Test 02/27/17 12:15 02/28/17 02:44 02/28/17 05:50 02/28/17 06:10 O2 Saturation 97 % (92-99) Arterial Blood pH 7.43 (7.35-7.45) Arterial Blood pH (Temp corrected) 7.41 Arterial Blood pCO2 at Patient Temp 36 mmHg (35-46) Arterial Blood pCO2 (Temp correct) 38 mmHg Arterial Blood pO2 at Patient Temp 101 mmHg (75-108) Arterial Blood pO2 (Temp corrected) 109 mmHg Arterial Blood HCO3 23 mmol/L (21-28) Arterial Blood Base Excess -1 mmol/L (-3-3) FiO2 40 Glucose (Fingerstick) 101 mg/dL (70-99) 106 mg/dL (70-99) White Blood Count 7.9 x10^3/uL (4.0-11.0) Red Blood Count 1.84 x10^6/uL (3.50-5.40) Hemoglobin 6.1 g/dL (12.0-15.5) Hematocrit 18.2 % (36.0-47.0) Mean Corpuscular Volume 97 fL (79-100) Mean Corpuscular Hemoglobin 33 pg (25-35) Mean Corpuscular Hemoglobin Concent 34 g/dL (31-37) Red Cell Distribution Width 17.7 % (11.5-14.5) Platelet Count 122 x10^3/uL (140-400) Neutrophils (%) (Auto) 93 % (31-73) Lymphocytes (%) (Auto) 3 % (24-48) Monocytes (%) (Auto) 3 % (0-9) Eosinophils (%) (Auto) 1 % (0-3) Basophils (%) (Auto) 1 % (0-3) Neutrophils # (Auto) 7.3 x10^3uL (1.8-7.7) Lymphocytes # (Auto) 0.2 x10^3/uL (1.0-4.8) Monocytes # (Auto) 0.3 x10^3/uL (0.0-1.1) Eosinophils # (Auto) 0.1 x10^3/uL (0.0-0.7) Basophils # (Auto) 0.0 x10^3/uL (0.0-0.2) Sodium Level 135 mmol/L (136-145) Potassium Level 4.4 mmol/L (3.5-5.1) Chloride Level 99 mmol/L (98-107) Carbon Dioxide Level 30 mmol/L (21-32) Anion Gap 6 (6-14) Blood Urea Nitrogen 71 mg/dL (7-20) Creatinine 2.6 mg/dL (0.6-1.0) Estimated GFR (Cockcroft-Gault) 23.2 Glucose Level 109 mg/dL (70-99) Calcium Level 8.2 mg/dL (8.5-10.1) Microbiology 02/15/17 Blood Culture - Final, Complete NO GROWTH AFTER 5 DAYS 02/12/17 Urine Culture - Final, Complete 02/12/17 Urine Culture Result 1 (ELIZABETH) - Final, Complete Medications Current Medications Calcium Chloride 1,000 mg 1X ONCE IV Last administered on 02/12/17 15:35; Start 02/12/17 at 16:00; Stop 02/12/17 at 16:35; Status DC Dextrose (Dextrose 50%-Water Syringe) 25 gm 1X ONCE IV Last administered on 15:33; Start 02/12/17 at 16:00; Stop 02/12/17 at 16:35; Status DC Sodium Bicarbonate 50 meq 1X ONCE IV Last administered on 02/12/17 15:35; Start 02/12/17 at 16:00; Stop 02/12/17 at 16:35; Status DC Furosemide (Lasix) 40 mg 1X ONCE IVP Last administered on 02/12/17 16:42; Start 02/12/17 at 16:30; Stop 02/12/17 at 16:35; Status DC Sodium Chloride 1,000 ml @ 1,000 mls/hr Q1H IV Last administered on 02/12/17 15:50; Start 02/12/17 at 16:57; Stop 02/13/17 at 07:23; Status DC Fentanyl Citrate (Fentanyl 2ml Vial) 25 mcg PRN Q30MIN PRN IV SED; Start at 17:00; Stop 02/25/17 at 09:24; Status DC Lorazepam (Ativan) 1 mg PRN Q30MIN PRN IV SEDATION Last administered on 17:21; Start 02/12/17 at 17:00 Fentanyl Citrate 30 ml @ 2.5 mls/hr CONT PRN PRN IV IVF Last administered on 03:27; Start 02/12/17 at 17:00; Stop 02/20/17 at 10:36; Status DC Propofol 100 ml @ 0 mls/hr CONT PRN IV SEE I/O RECORD; Start 02/12/17 at 17:00; Stop 02/20/17 at 10:36; Status DC Vecuronium [place] (Norcuron Bolus) DOSE AT 0.1 mg/kg PRN Q30MIN PRN IV SHIVERING Last administered on 02/12/17 19:46; Start 02/12/17 at 17:00; Stop 02/13 at 11:01; Status DC Meperidine HCl (Demerol) 12.5 mg PRN Q30MIN PRN IV SHIVERING; Start 02/12/17 at 17:00; Stop 02/25/17 at 09:24; Status DC Multi-Ingred Cream/Lotion/Oil/ Oint (Artificial Tears Eye Oint) 1 silvestre PRN Q6HRS PRN OU 0.5 INCH FOR DRY EYE Last administered on 02/23/17 07:34; Start at 17:00 Famotidine (Pepcid) 20 mg BID IVP Last administered on 02/14/17 10:47; Start at 09:00; Stop 02/14/17 at 16:23; Status DC Aspirin (Aspirin) 300 mg DAILY PA Last administered on 02/28/17 09:22; Start 02/13/17 at 09:00 Sodium Chloride (Normal Saline Flush) 3 ml QSHIFT PRN IV AFTER MEDS AND BLOOD DRAWS; Start 02/12/17 at 17:00 Acetaminophen (Tylenol) 650 mg Q6HRS NG Last administered on 02/13/17 05:51; Start 02/12/17 at 18:00; Stop 02/13/17 at 17:59; Status DC Acetaminophen (Acetaminophen Supp) 650 mg PRN Q6HRS PRN PA MILD PAIN / TEMP; Start 02/13/17 at 17:00 Acetaminophen (Tylenol) 650 mg PRN Q6HRS PRN NG MILD PAIN / TEMP Last administered on 02/23/17 13:02; Start 02/13/17 at 17:00 Info 1 ea DAILY PRN MC PER PROTOCOL; Start 02/14/17 at 17:00 Sodium Chloride 500 ml @ 500 mls/hr 1X ONCE IV Last administered on 02/12/17 16:30; Start 02/12/17 at 17:15; Stop 02/12/17 at 18:14; Status DC Sodium Chloride 500 ml @ 500 mls/hr 1X ONCE IV Last administered on 02/12/17 16:50; Start 02/12/17 at 17:15; Stop 02/12/17 at 18:14; Status DC Sodium Chloride 1,000 ml @ 100 mls/hr Q10H IV Last administered on 02/13/17 06 :36; Start 02/12/17 at 19:00; Stop 02/13/17 at 10:51; Status DC Famotidine (Pepcid) 20 mg 1X ONCE PO Last administered on 02/12/17 19:57; Start 02/12/17 at 17:30; Stop 02/12/17 at 17:34; Status DC Methylprednisolone Sodium Succinate (SOLU-Medrol 40MG VIAL) 100 mg TID IV Last administered on 02/14/17 11:01; Start 02/12/17 at 18:00; Stop 02/14/17 at 12:00; Status DC Sodium Chloride 1,000 ml @ 1,000 mls/hr 1X ONCE IV Last administered on 19:31; Start 02/12/17 at 18:15; Stop 02/12/17 at 19:14; Status DC Piperacillin Sod/ Tazobactam Sod (Zosyn Per Pharmacy) 1 each PRN DAILY PRN MC SEE COMMENTS; Start 02/12/17 at 19:15; Stop 02/18/17 at 07:22; Status DC Vancomycin HCl (Vanco Per Pharmacy) 1 each PRN DAILY PRN MC SEE COMMENTS Last administered on 02/13/17 16:50; Start 02/12/17 at 19:15; Stop 02/14/17 at 07:57; Status DC Piperacillin Sod/ Tazobactam Sod 3.375 gm/Sodium Chloride 50 ml @ 100 mls/hr Q6HRS IV Last administered on 02/15/17 05:58; Start 02/12/17 at 19:30; Stop 02/15 at 09:37; Status DC Vancomycin HCl 1 gm/Sodium Chloride 250 ml @ 250 mls/hr 1X ONCE IV Last administered on 02/12/17 20:00; Start 02/12/17 at 19:30; Stop 02/12/17 at 20:29; Status DC Sodium Bicarbonate 50 meq 1X ONCE IV Last administered on 02/12/17 19:59; Start 02/12/17 at 19:30; Stop 02/12/17 at 19:31; Status DC Norepinephrine Bitartrate 250 ml @ 0 mls/hr CONT PRN IV SEE I/O RECORD Last administered on 02/16/17 07:18; Start 02/12/17 at 19:30; Stop 02/20/17 at 10:36 ; Status DC Norepinephrine Bitartrate 250 ml @ As Directed STK-MED ONCE IV ; Start 02/12/17 at 19:25; Stop 02/12/17 at 19:26; Status DC Vancomycin HCl 750 mg/Sodium Chloride 250 ml @ 250 mls/hr Q24H IV Last administered on 02/13/17 20:34; Start 02/13/17 at 20:00; Stop 02/14/17 at 07:57; Status DC Vancomycin HCl 1 each 1X ONCE MC ; Start 02/14/17 at 19:30; Stop 02/14/17 at 19: 31; Status Cancel Sodium Chloride 1,000 ml @ 1,000 mls/hr 1X ONCE IV Last administered on 05:05; Start 02/13/17 at 04:45; Stop 02/13/17 at 05:44; Status DC Sodium Chloride 1,000 ml @ 1,000 mls/hr 1X ONCE IV Last administered on 05:35; Start 02/13/17 at 05:30; Stop 02/13/17 at 06:29; Status DC Magnesium Sulfate/ Dextrose 50 ml @ 25 mls/hr PRN DAILY PRN IV for Mag < 1.7 on am labs; Start 02/13/17 at 10:45 Dextrose/Sodium Chloride 1,000 ml @ 75 mls/hr [id number] IV Last administered on 02/15/17 01:52; Start 02/13/17 at 11:00; Stop 02/15/17 at 08:52; Status DC Vecuronium [place] (Norcuron Bolus) 5 mg PRN Q30MIN PRN IV SHIVERING; Start 02/13/17 at 11:15; Stop 02/25/17 at 09:25; Status DC Lidocaine/Sodium Bicarbonate (Buffered Lidocaine 1%) 3 ml 1X ONCE IJ Last administered on 02/13/17 11:40; Start 02/13/17 at 11:15; Stop 02/13/17 at 11:26; Status DC Heparin Sodium/ Sodium Chloride 60 unit 1X ONCE IV Last administered on 11:40; Start 02/13/17 at 11:15; Stop 02/13/17 at 11:26; Status DC Lidocaine/Sodium Bicarbonate (Buffered Lidocaine 1%) 20 ml STK-MED ONCE IJ ; Start 02/13/17 at 11:22; Stop 02/13/17 at 11:29; Status DC Heparin Sodium (Porcine) (Heparin Sodium) 2,075 unit 1X ONCE IV Last administered on 02/13/17 12:45; Start 02/13/17 at 11:45; Stop 02/13/17 at 11:56; Status DC Heparin Sodium/ Dextrose 500 ml @ 16.5 mls/hr CONT PRN IV SEE I/O RECORD Last administered on 02/13/17 12:47; Start 02/13/17 at 11:45; Stop 02/14/17 at 13:53; Status DC Heparin Sodium (Porcine) (Heparin Sodium) 1,550 unit PRN Q6HRS PRN IV FOR UFH LEVEL LESS THAN 0.2 Last administered on 02/13/17 20:22; Start 02/13/17 at 11:45 ; Stop 02/14/17 at 13:53; Status DC Heparin Sodium (Porcine) (Heparin Sodium) 800 unit PRN Q6HRS PRN IV FOR UFH LEVEL 0.2 - 0.29 Last administered on 02/14/17 02:34; Start 02/13/17 at 11:45; Stop 02/14/17 at 13:53; Status DC Warfarin Sodium (Coumadin Per Pharmacy) 1 each PRN DAILY PRN MC PER PROTOCOL; Start 02/13/17 at 11:45; Status Cancel Info (Anti-Coagulation Monitoring By Pharmacy) 1 each PRN DAILY PRN MC SEE COMMENTS; Start 02/13/17 at 13:00; Stop 02/14/17 at 16:28; Status DC Calcium Chloride 1,000 mg STK-MED ONCE IV ; Start 02/12/17 at 10:00; Stop at 16:27; Status DC Epinephrine HCl (EPINEPHrine SYRINGE) 1 mg STK-MED ONCE .ROUTE ; Start 02/12/17 at 10:00; Stop 02/13/17 at 16:27; Status DC Dextrose (Dextrose 50%-Water Syringe) 25 gm STK-MED ONCE IV ; Start 02/12/17 at 10:00; Stop 02/13/17 at 16:27; Status DC Sodium Bicarbonate 50 meq STK-MED ONCE .ROUTE ; Start 02/12/17 at 10:00; Stop 02/13/17 at 16:27; Status DC Methylprednisolone Sodium Succinate (SOLU-Medrol 125MG VIAL) 100 mg TID IV Last administered on 02/24/17 08:13; Start 02/14/17 at 18:00; Stop 02/24/17 at 11:24; Status DC Norepinephrine Bitartrate 250 ml @ 0 mls/hr CONT PRN IV SEE I/O RECORD; Start 02/14/17 at 15:30; Status Cancel Famotidine (Pepcid) 20 mg DAILY IVP Last administered on 02/28/17 09:17; Start 02/15/17 at 09:00 Amino Acids/ Glycerin/ Electrolytes 1,000 ml @ 80 mls/hr [id number] IV Last administered on 02/15/17 09:32; Start 02/15/17 at 08:45; Stop 02/15/17 at 15:14; Status DC Albumin Human 100 ml @ 100 mls/hr 1X ONCE IV Last administered on 02/15/17 09 :30; Start 02/15/17 at 08:45; Stop 02/15/17 at 09:44; Status DC Furosemide (Lasix) 40 mg 1X ONCE IVP ; Start 02/15/17 at 08:45; Stop 02/15/17 at 09:18; Status DC Piperacillin Sod/ Tazobactam Sod 2.25 gm/Sodium Chloride 50 ml @ 100 mls/hr Q6HRS IV Last administered on 02/16/17 05:52; Start 02/15/17 at 12:00; Stop 03/25 at 09:17; Status DC Daptomycin 340 mg/ Sodium Chloride 50 ml @ 100 mls/hr ONCE ONCE IV Last administered on 02/15/17 11:15; Start 02/15/17 at 11:15; Stop 02/15/17 at 11:44; Status DC Dextrose/Sodium Chloride 1,000 ml @ 40 mls/hr Q24H IV Last administered on 05:40; Start 02/15/17 at 15:15 Lidocaine/Sodium Bicarbonate (Buffered Lidocaine 1%) 3 ml 1X ONCE IJ Last administered on 02/15/17 16:00; Start 02/15/17 at 15:45; Stop 02/15/17 at 15:46; Status DC Heparin Sodium/ Sodium Chloride 6,000 unit 1X ONCE IV ; Start 02/15/17 at 15:45 ; Stop 02/15/17 at 15:46; Status DC Sodium Chloride 1,000 ml @ 1,000 mls/hr Q1H PRN IV hypotension; Start 02/16/17 at 06:38; Stop 02/16/17 at 12:37; Status DC Info (PHARMACY MONITORING -- do not chart) 1 each PRN DAILY PRN MC SEE COMMENTS ; Start 02/16/17 at 06:45; Stop 02/22/17 at 07:49; Status DC Info (PHARMACY MONITORING -- do not chart) 1 each PRN DAILY PRN MC SEE COMMENTS ; Start 02/16/17 at 06:45; Stop 02/16/17 at 09:19; Status DC Info (PHARMACY MONITORING -- do not chart) 1 each PRN DAILY PRN MC SEE COMMENTS ; Start 02/16/17 at 06:45; Stop 02/16/17 at 09:19; Status DC Albumin Human 100 ml @ 100 mls/hr 1X ONCE IV Last administered on 02/16/17 07:18; Start 02/16/17 at 07:00; Stop 02/16/17 at 07:59; Status DC Piperacillin Sod/ Tazobactam Sod 2.25 gm/Sodium Chloride 50 ml @ 100 mls/hr Q8HRS IV Last administered on 02/18/17 05:55; Start 02/16/17 at 14:00; Stop at 07:22; Status DC Daptomycin 340 mg/ Sodium Chloride 50 ml @ 100 mls/hr QODAY IV Last administered on 02/17/17 12:22; Start 02/17/17 at 09:00; Stop 02/18/17 at 07:22 ; Status DC Sodium Chloride 1,000 ml @ 1,000 mls/hr Q1H PRN IV hypotension; Start 02/17/17 at 08:30; Stop 02/17/17 at 16:00; Status DC Albumin Human 200 ml @ 200 mls/hr 1X PRN PRN IV Hypotension; Start 02/17/17 at 08:30; Stop 02/17/17 at 16:00; Status DC Sodium Chloride 1,000 ml @ 400 mls/hr Q2H30M PRN IV PATENCY; Start 02/17/17 at 08:30; Stop 02/17/17 at 16:00; Status DC Info (PHARMACY MONITORING -- do not chart) 1 each PRN DAILY PRN MC SEE COMMENTS ; Start 02/17/17 at 08:30; Status UNV Info (PHARMACY MONITORING -- do not chart) 1 each PRN DAILY PRN MC SEE COMMENTS ; Start 02/17/17 at 08:30; Status UNV Heparin Sodium (Porcine) (Heparin Sq) 5,000 unit Q8HRS SQ Last administered on 02/22/17 05:49; Start 02/17/17 at 14:00; Stop 02/22/17 at 14:24; Status DC Bisacodyl (Dulcolax Supp) 10 mg PRN DAILY PRN PA CONSTIPATION; Start 02/17/17 at 15:00 Polyethylene Glycol (miraLAX PACKET) 17 gm PRN DAILY PRN FT CONSTIPATION; Start 02/17/17 at 15:00 Levetiracetam 500 mg/Sodium Chloride 100 ml @ 400 mls/hr Q12HR IV Last administered on 02/28/17 09:22; Start 02/17/17 at 21:00 Vancomycin HCl (Vanco Per Pharmacy) 1 each PRN DAILY PRN MC SEE COMMENTS Last administered on 02/28/17 09:36; Start 02/18/17 at 07:30 Vancomycin HCl 1.5 gm/Sodium Chloride 500 ml @ 250 mls/hr 1X ONCE IV Last administered on 02/18/17 14:43; Start 02/18/17 at 14:30; Stop 02/18/17 at 16:29 ; Status DC Vancomycin HCl 1 each 1X ONCE MC Last administered on 02/20/17 05:00; Start 02/20/17 at 05:00; Stop 02/20/17 at 05:01; Status DC Sodium Chloride 1,000 ml @ 1,000 mls/hr Q1H PRN IV hypotension; Start 02/19/17 at 09:08; Stop 02/19/17 at 15:07; Status DC Albumin Human 200 ml @ 200 mls/hr 1X PRN PRN IV Hypotension; Start 02/19/17 at 09:15; Stop 02/19/17 at 15:14; Status DC Sodium Chloride 1,000 ml @ 400 mls/hr Q2H30M PRN IV PATENCY; Start 02/19/17 at 09:08; Stop 02/19/17 at 21:07; Status DC Info (PHARMACY MONITORING -- do not chart) 1 each PRN DAILY PRN MC SEE COMMENTS ; Start 02/19/17 at 09:15; Stop 02/19/17 at 09:17; Status DC Info (PHARMACY MONITORING -- do not chart) 1 each PRN DAILY PRN MC SEE COMMENTS ; Start 02/19/17 at 09:15; Stop 02/20/17 at 12:35; Status DC Vancomycin HCl 500 mg/Sodium Chloride 100 ml @ 100 mls/hr QMWF IV Last administered on 02/24/17t 16:10; Start 02/21/17 at 16:00; Stop 02/26/17 at 09:11 ; Status DC Sodium Chloride 1,000 ml @ 1,000 mls/hr Q1H PRN IV hypotension; Start 02/21/17 at 08:14; Stop 02/21/17 at 14:13; Status DC Diphenhydramine HCl (Benadryl) 25 mg 1X PRN PRN IV ITCHING; Start 02/21/17 at 08:15; Stop 02/22/17 at 08:14; Status DC Diphenhydramine HCl (Benadryl) 25 mg 1X PRN PRN IV ITCHING; Start 02/21/17 at 08:15; Stop 02/22/17 at 08:14; Status DC Sodium Chloride (Normal Saline Flush) 10 ml 1X PRN PRN IV AP catheter pack; Start 02/21/17 at 08:15; Stop 02/22/17 at 08:14; Status DC Sodium Chloride (Normal Saline Flush) 10 ml 1X PRN PRN IV [employer] catheter pack; Start 02/21/17 at 08:15; Stop 02/22/17 at 08:14; Status DC Sodium Chloride 1,000 ml @ 400 mls/hr Q2H30M PRN IV PATENCY; Start 02/21/17 at 08:14; Stop 02/21/17 at 20:13; Status DC Info (PHARMACY MONITORING -- do not chart) 1 each PRN DAILY PRN MC SEE COMMENTS ; Start 02/21/17 at 08:15; Stop 02/24/17 at 08:29; Status DC Sodium Chloride 1,000 ml @ 1,000 mls/hr Q1H PRN IV hypotension; Start 02/24/17 at 08:19; Stop 02/24/17 at 14:18; Status DC Albumin Human 200 ml @ 200 mls/hr 1X PRN PRN IV Hypotension Last administered on 02/24/17 10:12; Start 02/24/17 at 08:30; Stop 02/24/17 at 14:29; Status DC Acetaminophen (Tylenol) 500 mg 1X PRN PRN PO MILD PAIN / TEMP; Start 02/24/17 at 08:30; Stop 02/25/17 at 08:29; Status DC Diphenhydramine HCl (Benadryl) 25 mg 1X PRN PRN IV ITCHING; Start 02/24/17 at 08:30; Stop 02/25/17 at 08:29; Status DC Diphenhydramine HCl (Benadryl) 25 mg 1X PRN PRN IV ITCHING; Start 02/24/17 at 08:30; Stop 02/25/17 at 08:29; Status DC Labetalol HCl (Normodyne) 10 mg PRN Q1HR PRN IVP SBP > 180; Start 02/24/17 at 08:30; Stop 02/25/17 at 08:29; Status DC Info (PHARMACY MONITORING -- do not chart) 1 each PRN DAILY PRN MC SEE COMMENTS ; Start 02/24/17 at 08:30 Albumin Human 200 ml @ 100 mls/hr 1X ONCE IV Last administered on 02/24/17 09:51; Start 02/24/17 at 09:45; Stop 02/24/17 at 11:44; Status DC Methylprednisolone Sodium Succinate (SOLU-Medrol 125MG VIAL) 50 mg BID IV Last administered on 02/25/17 08:28; Start 02/24/17 at 21:00; Stop 02/25/17 at 11:12 ; Status DC Fentanyl Citrate (Fentanyl 2ml Vial) 50 mcg 1X ONCE IM ; Start 02/24/17 at 11: 30; Stop 02/24/17 at 11:31; Status Cancel Fentanyl Citrate 30 ml @ 0 mls/hr CONT PRN PRN IV PROTOCOL; Start 02/24/17 at 11:30; Stop 02/24/17 at 16:18; Status DC Fentanyl Citrate (Fentanyl 2ml Vial) 50 mcg 1X ONCE IV Last administered on 12:57; Start 02/24/17 at 13:00; Stop 02/24/17 at 13:01; Status DC Fentanyl Citrate (Fentanyl 2ml Vial) 25 mcg PRN Q4HRS PRN IV PAIN Last administered on 02/27/17 17:21; Start 02/24/17 at 16:30 Vancomycin HCl 1 each 1X ONCE MC ; Start 02/26/17 at 05:00; Stop 02/26/17 at 05 :01; Status DC Darbepoetin David (Aranesp) 60 mcg [id number] SQ Last administered on 02/25/17 20 :44; Start 02/25/17 at 21:00 Methylprednisolone Sodium Succinate (SOLU-Medrol 40MG VIAL) 20 mg BID IV Last administered on 02/26/17 08:50; Start 02/25/17 at 21:00; Stop 02/26/17 at 12:13 ; Status DC Sodium Chloride 1,000 ml @ 1,000 mls/hr Q1H PRN IV hypotension; Start 02/26/17 at 08:15; Stop 02/26/17 at 14:14; Status DC Diphenhydramine HCl (Benadryl) 25 mg 1X PRN PRN IV ITCHING; Start 02/26/17 at 08:15; Stop 02/27/17 at 08:14; Status UNV Diphenhydramine HCl (Benadryl) 25 mg 1X PRN PRN IV ITCHING; Start 02/26/17 at 08:15; Stop 02/27/17 at 08:14; Status DC Sodium Chloride (Normal Saline Flush) 10 ml 1X PRN PRN IV AP catheter pack; Start 02/26/17 at 08:15; Stop 02/27/17 at 08:14; Status DC Sodium Chloride (Normal Saline Flush) 10 ml 1X PRN PRN IV [employer] catheter pack; Start 02/26/17 at 08:15; Stop 02/27/17 at 08:14; Status DC Sodium Chloride 1,000 ml @ 400 mls/hr Q2H30M PRN IV PATENCY; Start 02/26/17 at 08:15; Stop 02/26/17 at 20:14; Status DC Info (PHARMACY MONITORING -- do not chart) 1 each PRN DAILY PRN MC SEE COMMENTS ; Start 02/26/17 at 08:15; Status UNV Vancomycin HCl 500 mg/Sodium Chloride 100 ml @ 100 mls/hr QMWF IV ; Start 02/28 at 16:00 Vancomycin HCl 750 mg/Sodium Chloride 250 ml @ 250 mls/hr 1X ONCE IV Last administered on 02/26/17 15:49; Start 02/26/17 at 16:00; Stop 02/26/17 at 16:59 ; Status DC Methylprednisolone Sodium Succinate (SOLU-Medrol 40MG VIAL) 20 mg QD IV Last administered on 02/27/17 09:15; Start 02/27/17 at 09:00; Stop 02/27/17 at 12:07 ; Status DC Vancomycin HCl 500 mg/Sodium Chloride 100 ml @ 100 mls/hr 1X ONCE IV Last administered on 02/27/17 17:17; Start 02/27/17 at 16:00; Stop 02/27/17 at 16:59 ; Status DC Mirtazapine (Remeron) 15 mg QHS PO Last administered on 02/27/17 20:47; Start 02/27/17 at 21:00 Lurasidone HCl (Latuda) 20 mg AFTRNOON PO Last administered on 02/27/17 13:01 ; Start 02/27/17 at 13:00 Lurasidone HCl (Latuda) 60 mg BIDWMEALS PO Last administered on 02/28/17 09:18 ; Start 02/27/17 at 17:00 Valacyclovir HCl (Valtrex) 500 mg BID PO Last administered on 02/27/17 20:47; Start 02/27/17 at 12:00; Stop 02/28/17 at 08:08; Status DC Sodium Chloride 1,000 ml @ 1,000 mls/hr Q1H PRN IV hypotension; Start 02/27/17 at 13:50; Stop 02/27/17 at 19:49; Status DC Albumin Human 200 ml @ 200 mls/hr 1X ONCE IV Last administered on 02/27/17t 14:11; Start 02/27/17 at 14:00; Stop 02/27/17 at 14:59; Status DC Sodium Chloride 1,000 ml @ 400 mls/hr Q2H30M PRN IV PATENCY; Start 02/27/17 at 13:50; Stop 02/28/17 at 01:49; Status DC Info (PHARMACY MONITORING -- do not chart) 1 each PRN DAILY PRN MC SEE COMMENTS ; Start 02/27/17 at 14:00; Status Cancel Active Scripts Active Reported Latuda (Lurasidone Hcl) 20 Mg Tablet 20 Mg PO AFTRNOON Remeron (Mirtazapine) 15 Mg Tablet 1 Tab PO QHS Oxybutynin Chloride Er (Oxybutynin Chloride) 10 Mg Tab.er.24 1 Tab PO DAILY Multivitamins (Multivitamin) 1 Each Tablet 1 Tab PO DAILY Latuda (Lurasidone Hcl) 20 Mg Tablet 10 Mg PO AFTRNOON Lorazepam 0.5 Mg Tablet 1 Tab PO QEVNG Duoneb 0.5-3(2.5) Mg/3 Ml (Albuterol/Ipratropium) 3 Ml Ampul.neb 3 Ml NEB BID Duoneb 0.5-3(2.5) Mg/3 Ml (Albuterol/Ipratropium) 3 Ml Ampul.neb 3 Ml NEB Q4H PRN Calcium Carbonate 500 Mg Tablet 1,000 Mg PO Q4HRS PRN Nicotine Gum (Nicotine Polacrilex) 4 Mg Gum 4 Mg BC Milk Of Magnesia (Magnesium Hydroxide) 400 Mg/5 Ml Oral.susp 400 Mg PO Q3DAYS PRN Milk Of Magnesia (Magnesium Hydroxide) 400 Mg/5 Ml Oral.susp 400 Mg PO Q3DAYS PRN Lorazepam 1 Mg Tablet 1 Tab PO Q12HR PRN Ibuprofen 400 Mg Tablet 200 Mg PO Q8HRS PRN Cough Drops (Eucalyptus Oil/Menthol) 7 Mg Lozenge 7 Mg MM Q4HRS PRN Tylenol (Acetaminophen) 325 Mg Tablet 650 Mg PO Q4HRS PRN Lovaza ([place]-3 Acid Ethyl Esters) 1 Gm Capsule 1 Cap PO QID Gabapentin 400 Mg Capsule 400 Mg PO QID Lorazepam 1 Mg Tablet 1 Tab PO BID Latuda (Lurasidone Hcl) 60 Mg Tablet 60 Mg PO BID Advair 100-50 Diskus (Fluticasone/Salmeterol) 1 Each Disk.w.dev 1 Puff IH BID Acetaminophen 325 Mg Capsule 650 Mg PO BID Vitamin D (Cholecalciferol (Vitamin D3)) 2,000 Unit Capsule 800 Unit PO DAILY Vitals/I & O Vital Sign - Last 24 Hours 02/27/17 02/27/17 02/27/17 02/27/17 11:00 11:00 12:00 12:00 Temp 99.4 99.4 Pulse 110 100 Resp 24 B/P (MAP) 154/79 (104) 148/74 (98) Pulse Ox 99 99 100 O2 Delivery Ventilator Ventilator Ventilator Mechanical Ventilator 02/27/17 02/27/17 02/27/17 02/27/17 12:36 13:00 14:00 15:00 Pulse 100 122 106 Resp 21 B/P (MAP) 148/75 (99) 89/69 (76) 92/52 (65) Pulse Ox 99 99 100 100 O2 Delivery Ventilator Ventilator Ventilator Ventilator 02/27/17 02/27/17 02/27/17 02/27/17 15:05 16:00 16:13 16:52 Temp 98.7 98.7 Pulse 102 Resp 22 B/P (MAP) 113/71 (85) Pulse Ox 100 100 100 O2 Delivery Ventilator Ventilator Mechanical Ventilator Ventilator 02/27/17 02/27/17 02/27/17 02/27/17 17:00 17:21 18:00 19:00 Pulse 94 82 80 Resp 18 25 20 20 B/P (MAP) 129/68 (88) 100/54 (69) 100/54 (69) Pulse Ox 100 100 100 100 O2 Delivery Ventilator Ventilator Ventilator Ventilator 02/27/17 02/27/17 02/27/17 02/27/17 20:00 20:00 20:09 21:00 Temp 98.7 98.7 Pulse 80 90 Resp 22 21 B/P (MAP) 109/58 (75) 124/71 (88) Pulse Ox 100 100 100 O2 Delivery Mechanical Ventilator Ventilator Ventilator Ventilator 02/27/17 02/27/17 02/27/17 02/27/17 22:00 22:33 23:00 23:59 Temp 98.2 98.2 Pulse 90 86 87 Resp 21 22 B/P (MAP) 139/68 (91) 135/70 (91) 132/73 (92) Pulse Ox 100 100 100 100 O2 Delivery Ventilator Ventilator Ventilator Ventilator 02/27/17 02/28/17 02/28/17 02/28/17 23:59 00:27 01:00 02:00 Pulse 80 90 Resp 18 22 B/P (MAP) 118/59 (78) 143/68 (93) Pulse Ox 100 100 100 O2 Delivery Mechanical Ventilator Ventilator Ventilator Ventilator 02/28/17 02/28/17 02/28/17 02/28/17 03:00 03:12 04:00 04:00 Temp 98.7 98.7 Pulse 92 92 Resp B/P (MAP) 144/67 (92) 144/70 (94) Pulse Ox 100 100 100 O2 Delivery Ventilator Ventilator Ventilator Mechanical Ventilator 02/28/17 02/28/17 02/28/17 02/28/17 05:00 05:26 06:01 07:00 Pulse 92 97 85 Resp 19 19 18 B/P (MAP) 123/62 (82) 153/76 (101) 158/76 (103) Pulse Ox 100 100 100 100 O2 Delivery Ventilator Ventilator Ventilator Ventilator 02/28/17 02/28/17 07:52 09:27 Pulse Ox 100 100 O2 Delivery Ventilator Ventilator SIVA GARCIA MD Feb 28, 2017 10:07
--- NOTE | 2017-02-28 10:41 | PDOC ---
PROGRESS NOTES Chief Complaint Chief Complaint cardiac arrest, asystole, unknown down time, s/p hypothermia Anoxic encephalopathy, off sedation, no response Normal corrected calcium Oliguric renal OLIGURIC RENAL FAILURE [facility] resident HX schiz by documentation Sepsis with organ failure, needing pressor Thrombocytopenia ANemia, normocytic Hyponatremia Acute precipitous drop hgb History of Present Illness History of Present Illness Pt seen at bedside in the ICU. She remains nonresponsive and on the ventilator. OG tube in place for feeding. Rectal tube in place for bowel movements. Rodriguez catheter in place for urination. Discussed the patient with [employer] and palliative care RN at bedside. I also spoke with the patients guardian on the phone pertaining to the scheduled court hearing. Per Guardian, once conciliation court judge signs the order the patient will be DNR with probable transfer to hospice. No PEG or transfusion at this time. I updated Dr. Hughes ([facility]) on the progress of the case. Ethics committee consulted on case. Meeting scheduled with , , and Dr. Dumont on 02/28/2017 to discuss DNR and possible extubation. Vent: AC/16/420/35%/O2 sat 100%/5 PEEP Vitals Vitals Vital Signs Date Time Temp Pulse Resp B/P (MAP) Pulse Ox O2 Delivery O2 Flow Rate FiO2 02/28/17 09:27 100 Ventilator 02/28/17 07:00 85 18 158/76 (103) 02/28/17 04:00 98.7 98.7 Physical Exam Physical Exam Eyes are reactive. Patient is breathing via mechanical ventilation. She is not sedated. She does not respond to verbal or physical stimuli. She does sometimes grimace. Per RN, she does open her eyes at times, and attempts to make eye contact. Yellow urine flowing from rodriguez catheter into bedside bag. Rectal tube in place for bowel evacuation. OG tube in place for feeding. Discoloration ( possible bleeding) at nail beds of fingers of left hand. No discoloration on R hand or either extremity. SCDs present. General: Other Heart: Regular rate, Gallops, Other (distant S1/S2) Lungs: Clear Abdomen: Normal bowel sounds, Soft, No tenderness, No hepatosplenomegaly, No masses Extremities: No clubbing, No cyanosis, No edema, Normal pulses, No tenderness/ swelling, Other (Discoloration of nail beds of left hand. Nurse agreed that it appeared to be blood. ) Skin: No breakdown, No significant lesion Labs LABS Laboratory Tests Test 02/27/17 12:15 02/28/17 02:44 02/28/17 05:50 02/28/17 06:10 O2 Saturation 97 % (92-99) Arterial Blood pH 7.43 (7.35-7.45) Arterial Blood pH (Temp corrected) 7.41 Arterial Blood pCO2 at Patient Temp 36 mmHg (35-46) Arterial Blood pCO2 (Temp correct) 38 mmHg Arterial Blood pO2 at Patient Temp 101 mmHg (75-108) Arterial Blood pO2 (Temp corrected) 109 mmHg Arterial Blood HCO3 23 mmol/L (21-28) Arterial Blood Base Excess -1 mmol/L (-3-3) FiO2 40 Glucose (Fingerstick) 101 mg/dL (70-99) 106 mg/dL (70-99) White Blood Count 7.9 x10^3/uL (4.0-11.0) Red Blood Count 1.84 x10^6/uL (3.50-5.40) Hemoglobin 6.1 g/dL (12.0-15.5) Hematocrit 18.2 % (36.0-47.0) Mean Corpuscular Volume 97 fL (79-100) Mean Corpuscular Hemoglobin 33 pg (25-35) Mean Corpuscular Hemoglobin Concent 34 g/dL (31-37) Red Cell Distribution Width 17.7 % (11.5-14.5) Platelet Count 122 x10^3/uL (140-400) Neutrophils (%) (Auto) 93 % (31-73) Lymphocytes (%) (Auto) 3 % (24-48) Monocytes (%) (Auto) 3 % (0-9) Eosinophils (%) (Auto) 1 % (0-3) Basophils (%) (Auto) 1 % (0-3) Neutrophils # (Auto) 7.3 x10^3uL (1.8-7.7) Lymphocytes # (Auto) 0.2 x10^3/uL (1.0-4.8) Monocytes # (Auto) 0.3 x10^3/uL (0.0-1.1) Eosinophils # (Auto) 0.1 x10^3/uL (0.0-0.7) Basophils # (Auto) 0.0 x10^3/uL (0.0-0.2) Sodium Level 135 mmol/L (136-145) Potassium Level 4.4 mmol/L (3.5-5.1) Chloride Level 99 mmol/L (98-107) Carbon Dioxide Level 30 mmol/L (21-32) Anion Gap 6 (6-14) Blood Urea Nitrogen 71 mg/dL (7-20) Creatinine 2.6 mg/dL (0.6-1.0) Estimated GFR (Cockcroft-Gault) 23.2 Glucose Level 109 mg/dL (70-99) Calcium Level 8.2 mg/dL (8.5-10.1) Review of Systems Review of Systems ROS unattainable secondary to AMS Assessment and Plan Assessmemt and Plan Problems Medical Problems: (1) Cardiac arrest Status: Acute (2) Elevated troponin Status: Acute (3) Hyperkalemia Status: Acute (4) Hypoglycemia Status: Acute (5) Hyponatremia Status: Acute Assessment: cardiac arrest, asystole, unknown down time, s/p hypothermia Anoxic encephalopathy, off sedation, no response Normal corrected calcium Oliguric renal OLIGURIC RENAL FAILURE SNU resident HX schiz by documentation Sepsis with organ failure, needing pressor Thrombocytopenia ANemia, normocytic Hyponatremia Acute precipitous drop hgb Plan: - I spoke with the patients guardian on the phone who stated that once the conciliation court judge signs the order we will make the patient DNR then she will be transferred to hospice. Guardian does not want a transfusion or PEG tube placed at time. - D/w with [facility] - D/w with palliative care RN - D/w with Dr. Hughes ([facility]) - continue ICU monitoring for now - Probable DNR and transfer to hospice Problems: Comment Review of Relevant I have reviewed the following items reji (where applicable) has been applied. Labs Laboratory Tests Test 02/26/17 16:02 02/26/17 23:46 02/27/17 05:31 02/27/17 05:35 Glucose (Fingerstick) 123 mg/dL (70-99) 92 mg/dL (70-99) 96 mg/dL (70-99) White Blood Count 15.6 x10^3/uL (4.0-11.0) Red Blood Count 2.60 x10^6/uL (3.50-5.40) Hemoglobin 8.4 g/dL (12.0-15.5) Hematocrit 24.3 % (36.0-47.0) Mean Corpuscular Volume 94 fL (79-100) Mean Corpuscular Hemoglobin 32 pg (25-35) Mean Corpuscular Hemoglobin Concent 35 g/dL (31-37) Red Cell Distribution Width 14.9 % (11.5-14.5) Platelet Count 166 x10^3/uL (140-400) Neutrophils (%) (Auto) 94 % (31-73) Lymphocytes (%) (Auto) 2 % (24-48) Monocytes (%) (Auto) 4 % (0-9) Eosinophils (%) (Auto) 0 % (0-3) Basophils (%) (Auto) 0 % (0-3) Neutrophils # (Auto) 14.7 x10^3uL (1.8-7.7) Lymphocytes # (Auto) 0.3 x10^3/uL (1.0-4.8) Monocytes # (Auto) 0.6 x10^3/uL (0.0-1.1) Eosinophils # (Auto) 0.0 x10^3/uL (0.0-0.7) Basophils # (Auto) 0.0 x10^3/uL (0.0-0.2) Segmented Neutrophils % 88 % (35-66) Band Neutrophils % 7 % (0-9) Lymphocytes % 1 % (24-48) Monocytes % 4 % (0-10) Platelet Estimate Adequate (ADEQUATE) Sodium Level 134 mmol/L (136-145) Potassium Level 4.4 mmol/L (3.5-5.1) Chloride Level 98 mmol/L (98-107) Carbon Dioxide Level 29 mmol/L (21-32) Anion Gap 7 (6-14) Blood Urea Nitrogen 94 mg/dL (7-20) Creatinine 3.4 mg/dL (0.6-1.0) Estimated GFR (Cockcroft-Gault) 17.0 Glucose Level 102 mg/dL (70-99) Calcium Level 8.0 mg/dL (8.5-10.1) Test 02/27/17 12:15 02/28/17 02:44 02/28/17 05:50 02/28/17 06:10 O2 Saturation 97 % (92-99) Arterial Blood pH 7.43 (7.35-7.45) Arterial Blood pH (Temp corrected) 7.41 Arterial Blood pCO2 at Patient Temp 36 mmHg (35-46) Arterial Blood pCO2 (Temp correct) 38 mmHg Arterial Blood pO2 at Patient Temp 101 mmHg (75-108) Arterial Blood pO2 (Temp corrected) 109 mmHg Arterial Blood HCO3 23 mmol/L (21-28) Arterial Blood Base Excess -1 mmol/L (-3-3) FiO2 40 Glucose (Fingerstick) 101 mg/dL (70-99) 106 mg/dL (70-99) White Blood Count 7.9 x10^3/uL (4.0-11.0) Red Blood Count 1.84 x10^6/uL (3.50-5.40) Hemoglobin 6.1 g/dL (12.0-15.5) Hematocrit 18.2 % (36.0-47.0) Mean Corpuscular Volume 97 fL (79-100) Mean Corpuscular Hemoglobin 33 pg (25-35) Mean Corpuscular Hemoglobin Concent 34 g/dL (31-37) Red Cell Distribution Width 17.7 % (11.5-14.5) Platelet Count 122 x10^3/uL (140-400) Neutrophils (%) (Auto) 93 % (31-73) Lymphocytes (%) (Auto) 3 % (24-48) Monocytes (%) (Auto) 3 % (0-9) Eosinophils (%) (Auto) 1 % (0-3) Basophils (%) (Auto) 1 % (0-3) Neutrophils # (Auto) 7.3 x10^3uL (1.8-7.7) Lymphocytes # (Auto) 0.2 x10^3/uL (1.0-4.8) Monocytes # (Auto) 0.3 x10^3/uL (0.0-1.1) Eosinophils # (Auto) 0.1 x10^3/uL (0.0-0.7) Basophils # (Auto) 0.0 x10^3/uL (0.0-0.2) Sodium Level 135 mmol/L (136-145) Potassium Level 4.4 mmol/L (3.5-5.1) Chloride Level 99 mmol/L (98-107) Carbon Dioxide Level 30 mmol/L (21-32) Anion Gap 6 (6-14) Blood Urea Nitrogen 71 mg/dL (7-20) Creatinine 2.6 mg/dL (0.6-1.0) Estimated GFR (Cockcroft-Gault) 23.2 Glucose Level 109 mg/dL (70-99) Calcium Level 8.2 mg/dL (8.5-10.1) Laboratory Tests Test 02/27/17 12:15 02/28/17 02:44 02/28/17 05:50 02/28/17 06:10 O2 Saturation 97 % (92-99) Arterial Blood pH 7.43 (7.35-7.45) Arterial Blood pH (Temp corrected) 7.41 Arterial Blood pCO2 at Patient Temp 36 mmHg (35-46) Arterial Blood pCO2 (Temp correct) 38 mmHg Arterial Blood pO2 at Patient Temp 101 mmHg (75-108) Arterial Blood pO2 (Temp corrected) 109 mmHg Arterial Blood HCO3 23 mmol/L (21-28) Arterial Blood Base Excess -1 mmol/L (-3-3) FiO2 40 Glucose (Fingerstick) 101 mg/dL (70-99) 106 mg/dL (70-99) White Blood Count 7.9 x10^3/uL (4.0-11.0) Red Blood Count 1.84 x10^6/uL (3.50-5.40) Hemoglobin 6.1 g/dL (12.0-15.5) Hematocrit 18.2 % (36.0-47.0) Mean Corpuscular Volume 97 fL (79-100) Mean Corpuscular Hemoglobin 33 pg (25-35) Mean Corpuscular Hemoglobin Concent 34 g/dL (31-37) Red Cell Distribution Width 17.7 % (11.5-14.5) Platelet Count 122 x10^3/uL (140-400) Neutrophils (%) (Auto) 93 % (31-73) Lymphocytes (%) (Auto) 3 % (24-48) Monocytes (%) (Auto) 3 % (0-9) Eosinophils (%) (Auto) 1 % (0-3) Basophils (%) (Auto) 1 % (0-3) Neutrophils # (Auto) 7.3 x10^3uL (1.8-7.7) Lymphocytes # (Auto) 0.2 x10^3/uL (1.0-4.8) Monocytes # (Auto) 0.3 x10^3/uL (0.0-1.1) Eosinophils # (Auto) 0.1 x10^3/uL (0.0-0.7) Basophils # (Auto) 0.0 x10^3/uL (0.0-0.2) Sodium Level 135 mmol/L (136-145) Potassium Level 4.4 mmol/L (3.5-5.1) Chloride Level 99 mmol/L (98-107) Carbon Dioxide Level 30 mmol/L (21-32) Anion Gap 6 (6-14) Blood Urea Nitrogen 71 mg/dL (7-20) Creatinine 2.6 mg/dL (0.6-1.0) Estimated GFR (Cockcroft-Gault) 23.2 Glucose Level 109 mg/dL (70-99) Calcium Level 8.2 mg/dL (8.5-10.1) Microbiology 02/27/17 Blood Culture - Preliminary, Resulted NO GROWTH AFTER 1 DAY 02/12/17 Urine Culture - Final, Complete 02/12/17 Urine Culture Result 1 (ELIZABETH) - Final, Complete Medications Current Medications Calcium Chloride 1,000 mg 1X ONCE IV Last administered on 02/12/17 15:35; Start 02/12/17 at 16:00; Stop 02/12/17 at 16:35; Status DC Dextrose (Dextrose 50%-Water Syringe) 25 gm 1X ONCE IV Last administered on 15:33; Start 02/12/17 at 16:00; Stop 02/12/17 at 16:35; Status DC Sodium Bicarbonate 50 meq 1X ONCE IV Last administered on 02/12/17 15:35; Start 02/12/17 at 16:00; Stop 02/12/17 at 16:35; Status DC Furosemide (Lasix) 40 mg 1X ONCE IVP Last administered on 02/12/17 16:42; Start 02/12/17 at 16:30; Stop 02/12/17 at 16:35; Status DC Sodium Chloride 1,000 ml @ 1,000 mls/hr Q1H IV Last administered on 02/12/17 15:50; Start 02/12/17 at 16:57; Stop 02/13/17 at 07:23; Status DC Fentanyl Citrate (Fentanyl 2ml Vial) 25 mcg PRN Q30MIN PRN IV SED; Start at 17:00; Stop 02/25/17 at 09:24; Status DC Lorazepam (Ativan) 1 mg PRN Q30MIN PRN IV SEDATION Last administered on 17:21; Start 02/12/17 at 17:00 Fentanyl Citrate 30 ml @ 2.5 mls/hr CONT PRN PRN IV IVF Last administered on 03:27; Start 02/12/17 at 17:00; Stop 02/20/17 at 10:36; Status DC Propofol 100 ml @ 0 mls/hr CONT PRN IV SEE I/O RECORD; Start 02/12/17 at 17:00; Stop 02/20/17 at 10:36; Status DC Vecuronium Joffre (Norcuron Bolus) DOSE AT 0.1 mg/kg PRN Q30MIN PRN IV SHIVERING Last administered on 02/12/17 19:46; Start 02/12/17 at 17:00; Stop 02/13 at 11:01; Status DC Meperidine HCl (Demerol) 12.5 mg PRN Q30MIN PRN IV SHIVERING; Start 02/12/17 at 17:00; Stop 02/25/17 at 09:24; Status DC Multi-Ingred Cream/Lotion/Oil/ Oint (Artificial Tears Eye Oint) 1 silvestre PRN Q6HRS PRN OU 0.5 INCH FOR DRY EYE Last administered on 02/23/17 07:34; Start at 17:00 Famotidine (Pepcid) 20 mg BID IVP Last administered on 02/14/17 10:47; Start at 09:00; Stop 02/14/17 at 16:23; Status DC Aspirin (Aspirin) 300 mg DAILY UT Last administered on 02/28/17 09:22; Start 02/13/17 at 09:00 Sodium Chloride (Normal Saline Flush) 3 ml QSHIFT PRN IV AFTER MEDS AND BLOOD DRAWS; Start 02/12/17 at 17:00 Acetaminophen (Tylenol) 650 mg Q6HRS NG Last administered on 02/13/17 05:51; Start 02/12/17 at 18:00; Stop 02/13/17 at 17:59; Status DC Acetaminophen (Acetaminophen Supp) 650 mg PRN Q6HRS PRN UT MILD PAIN / TEMP; Start 02/13/17 at 17:00 Acetaminophen (Tylenol) 650 mg PRN Q6HRS PRN NG MILD PAIN / TEMP Last administered on 02/23/17 13:02; Start 02/13/17 at 17:00 Info 1 ea DAILY PRN MC PER PROTOCOL; Start 02/14/17 at 17:00 Sodium Chloride 500 ml @ 500 mls/hr 1X ONCE IV Last administered on 02/12/17 16:30; Start 02/12/17 at 17:15; Stop 02/12/17 at 18:14; Status DC Sodium Chloride 500 ml @ 500 mls/hr 1X ONCE IV Last administered on 02/12/17 16:50; Start 02/12/17 at 17:15; Stop 02/12/17 at 18:14; Status DC Sodium Chloride 1,000 ml @ 100 mls/hr Q10H IV Last administered on 02/13/17 06 :36; Start 02/12/17 at 19:00; Stop 02/13/17 at 10:51; Status DC Famotidine (Pepcid) 20 mg 1X ONCE PO Last administered on 02/12/17 19:57; Start 02/12/17 at 17:30; Stop 02/12/17 at 17:34; Status DC Methylprednisolone Sodium Succinate (SOLU-Medrol 40MG VIAL) 100 mg TID IV Last administered on 02/14/17 11:01; Start 02/12/17 at 18:00; Stop 02/14/17 at 12:00; Status DC Sodium Chloride 1,000 ml @ 1,000 mls/hr 1X ONCE IV Last administered on 19:31; Start 02/12/17 at 18:15; Stop 02/12/17 at 19:14; Status DC Piperacillin Sod/ Tazobactam Sod (Zosyn Per Pharmacy) 1 each PRN DAILY PRN MC SEE COMMENTS; Start 02/12/17 at 19:15; Stop 02/18/17 at 07:22; Status DC Vancomycin HCl (Vanco Per Pharmacy) 1 each PRN DAILY PRN MC SEE COMMENTS Last administered on 02/13/17 16:50; Start 02/12/17 at 19:15; Stop 02/14/17 at 07:57; Status DC Piperacillin Sod/ Tazobactam Sod 3.375 gm/Sodium Chloride 50 ml @ 100 mls/hr Q6HRS IV Last administered on 02/15/17 05:58; Start 02/12/17 at 19:30; Stop 02/15 at 09:37; Status DC Vancomycin HCl 1 gm/Sodium Chloride 250 ml @ 250 mls/hr 1X ONCE IV Last administered on 02/12/17 20:00; Start 02/12/17 at 19:30; Stop 02/12/17 at 20:29; Status DC Sodium Bicarbonate 50 meq 1X ONCE IV Last administered on 02/12/17 19:59; Start 02/12/17 at 19:30; Stop 02/12/17 at 19:31; Status DC Norepinephrine Bitartrate 250 ml @ 0 mls/hr CONT PRN IV SEE I/O RECORD Last administered on 02/16/17 07:18; Start 02/12/17 at 19:30; Stop 02/20/17 at 10:36 ; Status DC Norepinephrine Bitartrate 250 ml @ As Directed STK-MED ONCE IV ; Start 02/12/17 at 19:25; Stop 02/12/17 at 19:26; Status DC Vancomycin HCl 750 mg/Sodium Chloride 250 ml @ 250 mls/hr Q24H IV Last administered on 02/13/17 20:34; Start 02/13/17 at 20:00; Stop 02/14/17 at 07:57; Status DC Vancomycin HCl 1 each 1X ONCE MC ; Start 02/14/17 at 19:30; Stop 02/14/17 at 19: 31; Status Cancel Sodium Chloride 1,000 ml @ 1,000 mls/hr 1X ONCE IV Last administered on 05:05; Start 02/13/17 at 04:45; Stop 02/13/17 at 05:44; Status DC Sodium Chloride 1,000 ml @ 1,000 mls/hr 1X ONCE IV Last administered on 05:35; Start 02/13/17 at 05:30; Stop 02/13/17 at 06:29; Status DC Magnesium Sulfate/ Dextrose 50 ml @ 25 mls/hr PRN DAILY PRN IV for Mag < 1.7 on am labs; Start 02/13/17 at 10:45 Dextrose/Sodium Chloride 1,000 ml @ 75 mls/hr [id number] IV Last administered on 02/15/17 01:52; Start 02/13/17 at 11:00; Stop 02/15/17 at 08:52; Status DC Vecuronium Joffre (Norcuron Bolus) 5 mg PRN Q30MIN PRN IV SHIVERING; Start 02/13/17 at 11:15; Stop 02/25/17 at 09:25; Status DC Lidocaine/Sodium Bicarbonate (Buffered Lidocaine 1%) 3 ml 1X ONCE IJ Last administered on 02/13/17 11:40; Start 02/13/17 at 11:15; Stop 02/13/17 at 11:26; Status DC Heparin Sodium/ Sodium Chloride 60 unit 1X ONCE IV Last administered on 11:40; Start 02/13/17 at 11:15; Stop 02/13/17 at 11:26; Status DC Lidocaine/Sodium Bicarbonate (Buffered Lidocaine 1%) 20 ml STK-MED ONCE IJ ; Start 02/13/17 at 11:22; Stop 02/13/17 at 11:29; Status DC Heparin Sodium (Porcine) (Heparin Sodium) 2,075 unit 1X ONCE IV Last administered on 02/13/17 12:45; Start 02/13/17 at 11:45; Stop 02/13/17 at 11:56; Status DC Heparin Sodium/ Dextrose 500 ml @ 16.5 mls/hr CONT PRN IV SEE I/O RECORD Last administered on 02/13/17 12:47; Start 02/13/17 at 11:45; Stop 02/14/17 at 13:53; Status DC Heparin Sodium (Porcine) (Heparin Sodium) 1,550 unit PRN Q6HRS PRN IV FOR UFH LEVEL LESS THAN 0.2 Last administered on 02/13/17 20:22; Start 02/13/17 at 11:45 ; Stop 02/14/17 at 13:53; Status DC Heparin Sodium (Porcine) (Heparin Sodium) 800 unit PRN Q6HRS PRN IV FOR UFH LEVEL 0.2 - 0.29 Last administered on 02/14/17 02:34; Start 02/13/17 at 11:45; Stop 02/14/17 at 13:53; Status DC Warfarin Sodium (Coumadin Per Pharmacy) 1 each PRN DAILY PRN MC PER PROTOCOL; Start 02/13/17 at 11:45; Status Cancel Info (Anti-Coagulation Monitoring By Pharmacy) 1 each PRN DAILY PRN MC SEE COMMENTS; Start 02/13/17 at 13:00; Stop 02/14/17 at 16:28; Status DC Calcium Chloride 1,000 mg STK-MED ONCE IV ; Start 02/12/17 at 10:00; Stop at 16:27; Status DC Epinephrine HCl (EPINEPHrine SYRINGE) 1 mg STK-MED ONCE .ROUTE ; Start 02/12/17 at 10:00; Stop 02/13/17 at 16:27; Status DC Dextrose (Dextrose 50%-Water Syringe) 25 gm STK-MED ONCE IV ; Start 02/12/17 at 10:00; Stop 02/13/17 at 16:27; Status DC Sodium Bicarbonate 50 meq STK-MED ONCE .ROUTE ; Start 02/12/17 at 10:00; Stop 02/13/17 at 16:27; Status DC Methylprednisolone Sodium Succinate (SOLU-Medrol 125MG VIAL) 100 mg TID IV Last administered on 02/24/17 08:13; Start 02/14/17 at 18:00; Stop 02/24/17 at 11:24; Status DC Norepinephrine Bitartrate 250 ml @ 0 mls/hr CONT PRN IV SEE I/O RECORD; Start 02/14/17 at 15:30; Status Cancel Famotidine (Pepcid) 20 mg DAILY IVP Last administered on 02/28/17 09:17; Start 02/15/17 at 09:00 Amino Acids/ Glycerin/ Electrolytes 1,000 ml @ 80 mls/hr [id number] IV Last administered on 02/15/17 09:32; Start 02/15/17 at 08:45; Stop 02/15/17 at 15:14; Status DC Albumin Human 100 ml @ 100 mls/hr 1X ONCE IV Last administered on 02/15/17 09 :30; Start 02/15/17 at 08:45; Stop 02/15/17 at 09:44; Status DC Furosemide (Lasix) 40 mg 1X ONCE IVP ; Start 02/15/17 at 08:45; Stop 02/15/17 at 09:18; Status DC Piperacillin Sod/ Tazobactam Sod 2.25 gm/Sodium Chloride 50 ml @ 100 mls/hr Q6HRS IV Last administered on 02/16/17 05:52; Start 02/15/17 at 12:00; Stop 03/25 at 09:17; Status DC Daptomycin 340 mg/ Sodium Chloride 50 ml @ 100 mls/hr ONCE ONCE IV Last administered on 02/15/17 11:15; Start 02/15/17 at 11:15; Stop 02/15/17 at 11:44; Status DC Dextrose/Sodium Chloride 1,000 ml @ 40 mls/hr Q24H IV Last administered on 05:40; Start 02/15/17 at 15:15 Lidocaine/Sodium Bicarbonate (Buffered Lidocaine 1%) 3 ml 1X ONCE IJ Last administered on 02/15/17 16:00; Start 02/15/17 at 15:45; Stop 02/15/17 at 15:46; Status DC Heparin Sodium/ Sodium Chloride 6,000 unit 1X ONCE IV ; Start 02/15/17 at 15:45 ; Stop 02/15/17 at 15:46; Status DC Sodium Chloride 1,000 ml @ 1,000 mls/hr Q1H PRN IV hypotension; Start 02/16/17 at 06:38; Stop 02/16/17 at 12:37; Status DC Info (PHARMACY MONITORING -- do not chart) 1 each PRN DAILY PRN MC SEE COMMENTS ; Start 02/16/17 at 06:45; Stop 02/22/17 at 07:49; Status DC Info (PHARMACY MONITORING -- do not chart) 1 each PRN DAILY PRN MC SEE COMMENTS ; Start 02/16/17 at 06:45; Stop 02/16/17 at 09:19; Status DC Info (PHARMACY MONITORING -- do not chart) 1 each PRN DAILY PRN MC SEE COMMENTS ; Start 02/16/17 at 06:45; Stop 02/16/17 at 09:19; Status DC Albumin Human 100 ml @ 100 mls/hr 1X ONCE IV Last administered on 9/10/17at 07:18; Start 02/16/17 at 07:00; Stop 02/16/17 at 07:59; Status DC Piperacillin Sod/ Tazobactam Sod 2.25 gm/Sodium Chloride 50 ml @ 100 mls/hr Q8HRS IV Last administered on 02/18/17 05:55; Start 02/16/17 at 14:00; Stop at 07:22; Status DC Daptomycin 340 mg/ Sodium Chloride 50 ml @ 100 mls/hr QODAY IV Last administered on 02/17/17 12:22; Start 02/17/17 at 09:00; Stop 02/18/17 at 07:22 ; Status DC Sodium Chloride 1,000 ml @ 1,000 mls/hr Q1H PRN IV hypotension; Start 02/17/17 at 08:30; Stop 02/17/17 at 16:00; Status DC Albumin Human 200 ml @ 200 mls/hr 1X PRN PRN IV Hypotension; Start 02/17/17 at 08:30; Stop 02/17/17 at 16:00; Status DC Sodium Chloride 1,000 ml @ 400 mls/hr Q2H30M PRN IV PATENCY; Start 02/17/17 at 08:30; Stop 02/17/17 at 16:00; Status DC Info (PHARMACY MONITORING -- do not chart) 1 each PRN DAILY PRN MC SEE COMMENTS ; Start 02/17/17 at 08:30; Status UNV Info (PHARMACY MONITORING -- do not chart) 1 each PRN DAILY PRN MC SEE COMMENTS ; Start 02/17/17 at 08:30; Status UNV Heparin Sodium (Porcine) (Heparin Sq) 5,000 unit Q8HRS SQ Last administered on 02/22/17 05:49; Start 02/17/17 at 14:00; Stop 02/22/17 at 14:24; Status DC Bisacodyl (Dulcolax Supp) 10 mg PRN DAILY PRN UT CONSTIPATION; Start 02/17/17 at 15:00 Polyethylene Glycol (miraLAX PACKET) 17 gm PRN DAILY PRN FT CONSTIPATION; Start 02/17/17 at 15:00 Levetiracetam 500 mg/Sodium Chloride 100 ml @ 400 mls/hr Q12HR IV Last administered on 02/28/17 09:22; Start 02/17/17 at 21:00 Vancomycin HCl (Vanco Per Pharmacy) 1 each PRN DAILY PRN MC SEE COMMENTS Last administered on 02/28/17 09:36; Start 02/18/17 at 07:30 Vancomycin HCl 1.5 gm/Sodium Chloride 500 ml @ 250 mls/hr 1X ONCE IV Last administered on 02/18/17 14:43; Start 02/18/17 at 14:30; Stop 02/18/17 at 16:29 ; Status DC Vancomycin HCl 1 each 1X ONCE MC Last administered on 02/20/17 05:00; Start 02/20/17 at 05:00; Stop 02/20/17 at 05:01; Status DC Sodium Chloride 1,000 ml @ 1,000 mls/hr Q1H PRN IV hypotension; Start 02/19/17 at 09:08; Stop 02/19/17 at 15:07; Status DC Albumin Human 200 ml @ 200 mls/hr 1X PRN PRN IV Hypotension; Start 02/19/17 at 09:15; Stop 02/19/17 at 15:14; Status DC Sodium Chloride 1,000 ml @ 400 mls/hr Q2H30M PRN IV PATENCY; Start 02/19/17 at 09:08; Stop 02/19/17 at 21:07; Status DC Info (PHARMACY MONITORING -- do not chart) 1 each PRN DAILY PRN MC SEE COMMENTS ; Start 02/19/17 at 09:15; Stop 02/19/17 at 09:17; Status DC Info (PHARMACY MONITORING -- do not chart) 1 each PRN DAILY PRN MC SEE COMMENTS ; Start 02/19/17 at 09:15; Stop 02/20/17 at 12:35; Status DC Vancomycin HCl 500 mg/Sodium Chloride 100 ml @ 100 mls/hr QMWF IV Last administered on 02/24/17 16:10; Start 02/21/17 at 16:00; Stop 02/26/17 at 09:11 ; Status DC Sodium Chloride 1,000 ml @ 1,000 mls/hr Q1H PRN IV hypotension; Start 02/21/17 at 08:14; Stop 02/21/17 at 14:13; Status DC Diphenhydramine HCl (Benadryl) 25 mg 1X PRN PRN IV ITCHING; Start 02/21/17 at 08:15; Stop 02/22/17 at 08:14; Status DC Diphenhydramine HCl (Benadryl) 25 mg 1X PRN PRN IV ITCHING; Start 02/21/17 at 08:15; Stop 02/22/17 at 08:14; Status DC Sodium Chloride (Normal Saline Flush) 10 ml 1X PRN PRN IV AP catheter pack; Start 02/21/17 at 08:15; Stop 02/22/17 at 08:14; Status DC Sodium Chloride (Normal Saline Flush) 10 ml 1X PRN PRN IV WELDING ROD COATER catheter pack; Start 02/21/17 at 08:15; Stop 02/22/17 at 08:14; Status DC Sodium Chloride 1,000 ml @ 400 mls/hr Q2H30M PRN IV PATENCY; Start 02/21/17 at 08:14; Stop 02/21/17 at 20:13; Status DC Info (PHARMACY MONITORING -- do not chart) 1 each PRN DAILY PRN MC SEE COMMENTS ; Start 02/21/17 at 08:15; Stop 02/24/17 at 08:29; Status DC Sodium Chloride 1,000 ml @ 1,000 mls/hr Q1H PRN IV hypotension; Start 02/24/17 at 08:19; Stop 02/24/17 at 14:18; Status DC Albumin Human 200 ml @ 200 mls/hr 1X PRN PRN IV Hypotension Last administered on 02/24/17t 10:12; Start 02/24/17 at 08:30; Stop 02/24/17 at 14:29; Status DC Acetaminophen (Tylenol) 500 mg 1X PRN PRN PO MILD PAIN / TEMP; Start 02/24/17 at 08:30; Stop 02/25/17 at 08:29; Status DC Diphenhydramine HCl (Benadryl) 25 mg 1X PRN PRN IV ITCHING; Start 02/24/17 at 08:30; Stop 02/25/17 at 08:29; Status DC Diphenhydramine HCl (Benadryl) 25 mg 1X PRN PRN IV ITCHING; Start 02/24/17 at 08:30; Stop 02/25/17 at 08:29; Status DC Labetalol HCl (Normodyne) 10 mg PRN Q1HR PRN IVP SBP > 180; Start 02/24/17 at 08:30; Stop 02/25/17 at 08:29; Status DC Info (PHARMACY MONITORING -- do not chart) 1 each PRN DAILY PRN MC SEE COMMENTS ; Start 02/24/17 at 08:30 Albumin Human 200 ml @ 100 mls/hr 1X ONCE IV Last administered on 02/24/17 09:51; Start 02/24/17 at 09:45; Stop 02/24/17 at 11:44; Status DC Methylprednisolone Sodium Succinate (SOLU-Medrol 125MG VIAL) 50 mg BID IV Last administered on 02/25/17 08:28; Start 02/24/17 at 21:00; Stop 02/25/17 at 11:12 ; Status DC Fentanyl Citrate (Fentanyl 2ml Vial) 50 mcg 1X ONCE IM ; Start 02/24/17 at 11: 30; Stop 02/24/17 at 11:31; Status Cancel Fentanyl Citrate 30 ml @ 0 mls/hr CONT PRN PRN IV PROTOCOL; Start 02/24/17 at 11:30; Stop 02/24/17 at 16:18; Status DC Fentanyl Citrate (Fentanyl 2ml Vial) 50 mcg 1X ONCE IV Last administered on 12:57; Start 02/24/17 at 13:00; Stop 02/24/17 at 13:01; Status DC Fentanyl Citrate (Fentanyl 2ml Vial) 25 mcg PRN Q4HRS PRN IV PAIN Last administered on 02/27/17 17:21; Start 02/24/17 at 16:30 Vancomycin HCl 1 each 1X ONCE MC ; Start 02/26/17 at 05:00; Stop 02/26/17 at 05 :01; Status DC Darbepoetin David (Aranesp) 60 mcg WEEKLYHS SQ Last administered on 02/25/17 20 :44; Start 02/25/17 at 21:00 Methylprednisolone Sodium Succinate (SOLU-Medrol 40MG VIAL) 20 mg BID IV Last administered on 02/26/17 08:50; Start 02/25/17 at 21:00; Stop 02/26/17 at 12:13 ; Status DC Sodium Chloride 1,000 ml @ 1,000 mls/hr Q1H PRN IV hypotension; Start 02/26/17 at 08:15; Stop 02/26/17 at 14:14; Status DC Diphenhydramine HCl (Benadryl) 25 mg 1X PRN PRN IV ITCHING; Start 02/26/17 at 08:15; Stop 02/27/17 at 08:14; Status UNV Diphenhydramine HCl (Benadryl) 25 mg 1X PRN PRN IV ITCHING; Start 02/26/17 at 08:15; Stop 02/27/17 at 08:14; Status DC Sodium Chloride (Normal Saline Flush) 10 ml 1X PRN PRN IV AP catheter pack; Start 02/26/17 at 08:15; Stop 02/27/17 at 08:14; Status DC Sodium Chloride (Normal Saline Flush) 10 ml 1X PRN PRN IV WELDING ROD COATER catheter pack; Start 02/26/17 at 08:15; Stop 02/27/17 at 08:14; Status DC Sodium Chloride 1,000 ml @ 400 mls/hr Q2H30M PRN IV PATENCY; Start 02/26/17 at 08:15; Stop 02/26/17 at 20:14; Status DC Info (PHARMACY MONITORING -- do not chart) 1 each PRN DAILY PRN MC SEE COMMENTS ; Start 02/26/17 at 08:15; Status UNV Vancomycin HCl 500 mg/Sodium Chloride 100 ml @ 100 mls/hr QMWF IV ; Start 02/28 at 16:00 Vancomycin HCl 750 mg/Sodium Chloride 250 ml @ 250 mls/hr 1X ONCE IV Last administered on 02/26/17 15:49; Start 02/26/17 at 16:00; Stop 02/26/17 at 16:59 ; Status DC Methylprednisolone Sodium Succinate (SOLU-Medrol 40MG VIAL) 20 mg QD IV Last administered on 02/27/17 09:15; Start 02/27/17 at 09:00; Stop 02/27/17 at 12:07 ; Status DC Vancomycin HCl 500 mg/Sodium Chloride 100 ml @ 100 mls/hr 1X ONCE IV Last administered on 02/27/17 17:17; Start 02/27/17 at 16:00; Stop 02/27/17 at 16:59 ; Status DC Mirtazapine (Remeron) 15 mg QHS PO Last administered on 02/27/17 20:47; Start 02/27/17 at 21:00 Lurasidone HCl (Latuda) 20 mg AFTRNOON PO Last administered on 02/27/17 13:01 ; Start 02/27/17 at 13:00 Lurasidone HCl (Latuda) 60 mg BIDWMEALS PO Last administered on 02/28/17 09:18 ; Start 02/27/17 at 17:00 Valacyclovir HCl (Valtrex) 500 mg BID PO Last administered on 02/27/17 20:47; Start 02/27/17 at 12:00; Stop 02/28/17 at 08:08; Status DC Sodium Chloride 1,000 ml @ 1,000 mls/hr Q1H PRN IV hypotension; Start 02/27/17 at 13:50; Stop 02/27/17 at 19:49; Status DC Albumin Human 200 ml @ 200 mls/hr 1X ONCE IV Last administered on 02/27/17 14:11; Start 02/27/17 at 14:00; Stop 02/27/17 at 14:59; Status DC Sodium Chloride 1,000 ml @ 400 mls/hr Q2H30M PRN IV PATENCY; Start 02/27/17 at 13:50; Stop 02/28/17 at 01:49; Status DC Info (PHARMACY MONITORING -- do not chart) 1 each PRN DAILY PRN MC SEE COMMENTS ; Start 02/27/17 at 14:00; Status Cancel Active Scripts Active Reported Latuda (Lurasidone Hcl) 20 Mg Tablet 20 Mg PO AFTRNOON Remeron (Mirtazapine) 15 Mg Tablet 1 Tab PO QHS Oxybutynin Chloride Er (Oxybutynin Chloride) 10 Mg Tab.er.24 1 Tab PO DAILY Multivitamins (Multivitamin) 1 Each Tablet 1 Tab PO DAILY Latuda (Lurasidone Hcl) 20 Mg Tablet 10 Mg PO AFTRNOON Lorazepam 0.5 Mg Tablet 1 Tab PO QEVNG Duoneb 0.5-3(2.5) Mg/3 Ml (Albuterol/Ipratropium) 3 Ml Ampul.neb 3 Ml NEB BID Duoneb 0.5-3(2.5) Mg/3 Ml (Albuterol/Ipratropium) 3 Ml Ampul.neb 3 Ml NEB Q4H PRN Calcium Carbonate 500 Mg Tablet 1,000 Mg PO Q4HRS PRN Nicotine Gum (Nicotine Polacrilex) 4 Mg Gum 4 Mg BC Milk Of Magnesia (Magnesium Hydroxide) 400 Mg/5 Ml Oral.susp 400 Mg PO Q3DAYS PRN Milk Of Magnesia (Magnesium Hydroxide) 400 Mg/5 Ml Oral.susp 400 Mg PO Q3DAYS PRN Lorazepam 1 Mg Tablet 1 Tab PO Q12HR PRN Ibuprofen 400 Mg Tablet 200 Mg PO Q8HRS PRN Cough Drops (Eucalyptus Oil/Menthol) 7 Mg Lozenge 7 Mg MM Q4HRS PRN Tylenol (Acetaminophen) 325 Mg Tablet 650 Mg PO Q4HRS PRN Lovaza ([place]-3 Acid Ethyl Esters) 1 Gm Capsule 1 Cap PO QID Gabapentin 400 Mg Capsule 400 Mg PO QID Lorazepam 1 Mg Tablet 1 Tab PO BID Latuda (Lurasidone Hcl) 60 Mg Tablet 60 Mg PO BID Advair 100-50 Diskus (Fluticasone/Salmeterol) 1 Each Disk.w.dev 1 Puff IH BID Acetaminophen 325 Mg Capsule 650 Mg PO BID Vitamin D (Cholecalciferol (Vitamin D3)) 2,000 Unit Capsule 800 Unit PO DAILY Vitals/I & O Vital Sign - Last 24 Hours 02/27/17 02/27/17 02/27/17 02/27/17 11:00 11:00 12:00 12:00 Temp 99.4 99.4 Pulse 110 100 Resp 29 24 B/P (MAP) 154/79 (104) 148/74 (98) Pulse Ox 99 99 100 O2 Delivery Ventilator Ventilator Ventilator Mechanical Ventilator 02/27/17 02/27/17 02/27/17 02/27/17 12:36 13:00 14:00 15:00 Pulse 100 122 106 Resp 21 24 21 B/P (MAP) 148/75 (99) 89/69 (76) 92/52 (65) Pulse Ox 99 99 100 100 O2 Delivery Ventilator Ventilator Ventilator Ventilator 02/27/17 02/27/17 02/27/17 02/27/17 15:05 16:00 16:13 16:52 Temp 98.7 98.7 Pulse 102 Resp 22 B/P (MAP) 113/71 (85) Pulse Ox 100 100 100 O2 Delivery Ventilator Ventilator Mechanical Ventilator Ventilator 9/21/17 9/21/17 9/21/17 9/21/17 17:00 17:21 18:00 19:00 Pulse 94 82 80 Resp 18 25 20 20 B/P (MAP) 129/68 (88) 100/54 (69) 100/54 (69) Pulse Ox 100 100 100 100 O2 Delivery Ventilator Ventilator Ventilator Ventilator 02/27/17 02/27/17 02/27/17 02/27/17 20:00 20:00 20:09 21:00 Temp 98.7 98.7 Pulse 80 90 Resp B/P (MAP) 109/58 (75) 124/71 (88) Pulse Ox 100 100 100 O2 Delivery Mechanical Ventilator Ventilator Ventilator Ventilator 02/27/17 02/27/17 02/27/17 02/27/17 22:00 22:33 23:00 23:59 Temp 98.2 98.2 Pulse 90 86 87 Resp B/P (MAP) 139/68 (91) 135/70 (91) 132/73 (92) Pulse Ox 100 100 100 100 O2 Delivery Ventilator Ventilator Ventilator Ventilator 02/27/17 02/28/17 02/28/17 02/28/17 23:59 00:27 01:00 02:00 Pulse 80 90 Resp B/P (MAP) 118/59 (78) 143/68 (93) Pulse Ox 100 100 100 O2 Delivery Mechanical Ventilator Ventilator Ventilator Ventilator 02/28/17 02/28/17 02/28/17 02/28/17 03:00 03:12 04:00 04:00 Temp 98.7 98.7 Pulse 92 92 Resp B/P (MAP) 144/67 (92) 144/70 (94) Pulse Ox 100 100 100 O2 Delivery Ventilator Ventilator Ventilator Mechanical Ventilator 02/28/17 02/28/17 02/28/17 02/28/17 05:00 05:26 06:01 07:00 Pulse 92 97 85 Resp 18 B/P (MAP) 123/62 (82) 153/76 (101) 158/76 (103) Pulse Ox 100 100 100 100 O2 Delivery Ventilator Ventilator Ventilator Ventilator 02/28/17 02/28/17 07:52 09:27 Pulse Ox 100 100 O2 Delivery Ventilator Ventilator HOANG DUMONT III DO Feb 28, 2017 10:41
[2017-02-28] MEDS ORDERED: IV NORMAL SALINE 1000ML BAG 1,000 ML IV PRN ×2 (11:04)
--- NOTE | 2017-02-28 11:06 | PDOC ---
PULMONARY PROGRESS NOTES Subjective on vent, does not follow any commands, withdraws to deep pain new fever 101F 02/27 Vitals Vital Signs Date Time Temp Pulse Resp B/P (MAP) Pulse Ox O2 Delivery O2 Flow Rate FiO2 02/28/17 09:27 100 Ventilator 02/28/17 07:00 85 18 158/76 (103) 02/28/17 04:00 98.7 98.7 Comments ros, discussed w rn, as mentioned as above other sys otherwise neg Lungs: Other (decrease bs) Cardiovascular: S1, S2 Abdomen: Soft, Non-tender Extremities: Other (1+ edema) Skin: Warm, Dry Labs Laboratory Tests Test 02/26/17 16:02 02/26/17 23:46 02/27/17 05:31 02/27/17 05:35 Glucose (Fingerstick) 123 mg/dL (70-99) 92 mg/dL (70-99) 96 mg/dL (70-99) White Blood Count 15.6 x10^3/uL (4.0-11.0) Red Blood Count 2.60 x10^6/uL (3.50-5.40) Hemoglobin 8.4 g/dL (12.0-15.5) Hematocrit 24.3 % (36.0-47.0) Mean Corpuscular Volume 94 fL (79-100) Mean Corpuscular Hemoglobin 32 pg (25-35) Mean Corpuscular Hemoglobin Concent 35 g/dL (31-37) Red Cell Distribution Width 14.9 % (11.5-14.5) Platelet Count 166 x10^3/uL (140-400) Neutrophils (%) (Auto) 94 % (31-73) Lymphocytes (%) (Auto) 2 % (24-48) Monocytes (%) (Auto) 4 % (0-9) Eosinophils (%) (Auto) 0 % (0-3) Basophils (%) (Auto) 0 % (0-3) Neutrophils # (Auto) 14.7 x10^3uL (1.8-7.7) Lymphocytes # (Auto) 0.3 x10^3/uL (1.0-4.8) Monocytes # (Auto) 0.6 x10^3/uL (0.0-1.1) Eosinophils # (Auto) 0.0 x10^3/uL (0.0-0.7) Basophils # (Auto) 0.0 x10^3/uL (0.0-0.2) Segmented Neutrophils % 88 % (35-66) Band Neutrophils % 7 % (0-9) Lymphocytes % 1 % (24-48) Monocytes % 4 % (0-10) Platelet Estimate Adequate (ADEQUATE) Sodium Level 134 mmol/L (136-145) Potassium Level 4.4 mmol/L (3.5-5.1) Chloride Level 98 mmol/L (98-107) Carbon Dioxide Level 29 mmol/L (21-32) Anion Gap 7 (6-14) Blood Urea Nitrogen 94 mg/dL (7-20) Creatinine 3.4 mg/dL (0.6-1.0) Estimated GFR (Cockcroft-Gault) 17.0 Glucose Level 102 mg/dL (70-99) Calcium Level 8.0 mg/dL (8.5-10.1) Test 02/27/17 12:15 02/28/17 02:44 02/28/17 05:50 02/28/17 06:10 O2 Saturation 97 % (92-99) Arterial Blood pH 7.43 (7.35-7.45) Arterial Blood pH (Temp corrected) 7.41 Arterial Blood pCO2 at Patient Temp 36 mmHg (35-46) Arterial Blood pCO2 (Temp correct) 38 mmHg Arterial Blood pO2 at Patient Temp 101 mmHg (75-108) Arterial Blood pO2 (Temp corrected) 109 mmHg Arterial Blood HCO3 23 mmol/L (21-28) Arterial Blood Base Excess -1 mmol/L (-3-3) FiO2 40 Glucose (Fingerstick) 101 mg/dL (70-99) 106 mg/dL (70-99) White Blood Count 7.9 x10^3/uL (4.0-11.0) Red Blood Count 1.84 x10^6/uL (3.50-5.40) Hemoglobin 6.1 g/dL (12.0-15.5) Hematocrit 18.2 % (36.0-47.0) Mean Corpuscular Volume 97 fL (79-100) Mean Corpuscular Hemoglobin 33 pg (25-35) Mean Corpuscular Hemoglobin Concent 34 g/dL (31-37) Red Cell Distribution Width 17.7 % (11.5-14.5) Platelet Count 122 x10^3/uL (140-400) Neutrophils (%) (Auto) 93 % (31-73) Lymphocytes (%) (Auto) 3 % (24-48) Monocytes (%) (Auto) 3 % (0-9) Eosinophils (%) (Auto) 1 % (0-3) Basophils (%) (Auto) 1 % (0-3) Neutrophils # (Auto) 7.3 x10^3uL (1.8-7.7) Lymphocytes # (Auto) 0.2 x10^3/uL (1.0-4.8) Monocytes # (Auto) 0.3 x10^3/uL (0.0-1.1) Eosinophils # (Auto) 0.1 x10^3/uL (0.0-0.7) Basophils # (Auto) 0.0 x10^3/uL (0.0-0.2) Sodium Level 135 mmol/L (136-145) Potassium Level 4.4 mmol/L (3.5-5.1) Chloride Level 99 mmol/L (98-107) Carbon Dioxide Level 30 mmol/L (21-32) Anion Gap 6 (6-14) Blood Urea Nitrogen 71 mg/dL (7-20) Creatinine 2.6 mg/dL (0.6-1.0) Estimated GFR (Cockcroft-Gault) 23.2 Glucose Level 109 mg/dL (70-99) Calcium Level 8.2 mg/dL (8.5-10.1) Laboratory Tests Test 02/27/17 12:15 02/28/17 02:44 02/28/17 05:50 02/28/17 06:10 O2 Saturation 97 % (92-99) Arterial Blood pH 7.43 (7.35-7.45) Arterial Blood pH (Temp corrected) 7.41 Arterial Blood pCO2 at Patient Temp 36 mmHg (35-46) Arterial Blood pCO2 (Temp correct) 38 mmHg Arterial Blood pO2 at Patient Temp 101 mmHg (75-108) Arterial Blood pO2 (Temp corrected) 109 mmHg Arterial Blood HCO3 23 mmol/L (21-28) Arterial Blood Base Excess -1 mmol/L (-3-3) FiO2 40 Glucose (Fingerstick) 101 mg/dL (70-99) 106 mg/dL (70-99) White Blood Count 7.9 x10^3/uL (4.0-11.0) Red Blood Count 1.84 x10^6/uL (3.50-5.40) Hemoglobin 6.1 g/dL (12.0-15.5) Hematocrit 18.2 % (36.0-47.0) Mean Corpuscular Volume 97 fL (79-100) Mean Corpuscular Hemoglobin 33 pg (25-35) Mean Corpuscular Hemoglobin Concent 34 g/dL (31-37) Red Cell Distribution Width 17.7 % (11.5-14.5) Platelet Count 122 x10^3/uL (140-400) Neutrophils (%) (Auto) 93 % (31-73) Lymphocytes (%) (Auto) 3 % (24-48) Monocytes (%) (Auto) 3 % (0-9) Eosinophils (%) (Auto) 1 % (0-3) Basophils (%) (Auto) 1 % (0-3) Neutrophils # (Auto) 7.3 x10^3uL (1.8-7.7) Lymphocytes # (Auto) 0.2 x10^3/uL (1.0-4.8) Monocytes # (Auto) 0.3 x10^3/uL (0.0-1.1) Eosinophils # (Auto) 0.1 x10^3/uL (0.0-0.7) Basophils # (Auto) 0.0 x10^3/uL (0.0-0.2) Sodium Level 135 mmol/L (136-145) Potassium Level 4.4 mmol/L (3.5-5.1) Chloride Level 99 mmol/L (98-107) Carbon Dioxide Level 30 mmol/L (21-32) Anion Gap 6 (6-14) Blood Urea Nitrogen 71 mg/dL (7-20) Creatinine 2.6 mg/dL (0.6-1.0) Estimated GFR (Cockcroft-Gault) 23.2 Glucose Level 109 mg/dL (70-99) Calcium Level 8.2 mg/dL (8.5-10.1) Medications Active Scripts Medications Dose Route/Sig Max Daily Dose Days Date Category Latuda (Lurasidone Hcl) 20 Mg Tablet 20 Mg PO AFTRNOON 02/12/17 Reported Remeron (Mirtazapine) 15 Mg Tablet 1 Tab PO QHS 02/12/17 Reported Oxybutynin Chloride Er (Oxybutynin Chloride) 10 Mg Tab.er.24 1 Tab PO DAILY 02/12/17 Reported Multivitamins (Multivitamin) 1 Each Tablet 1 Tab PO DAILY 02/12/17 Reported Latuda (Lurasidone Hcl) 20 Mg Tablet 10 Mg PO AFTRNOON 02/12/17 Reported Lorazepam 0.5 Mg Tablet 1 Tab PO QEVNG 02/12/17 Reported Duoneb 0.5-3(2.5) Mg/3 Ml (Albuterol/Ipratropium) 3 Ml Ampul.neb 3 Ml NEB BID 02/12/17 Reported Duoneb 0.5-3(2.5) Mg/3 Ml (Albuterol/Ipratropium) 3 Ml Ampul.neb 3 Ml NEB Q4H PRN 02/12/17 Reported Calcium Carbonate 500 Mg Tablet 1,000 Mg PO Q4HRS PRN 02/12/17 Reported Nicotine Gum (Nicotine Polacrilex) 4 Mg Gum 4 Mg BC 02/12/17 Reported Milk Of Magnesia (Magnesium Hydroxide) 400 Mg/5 Ml Oral.susp 400 Mg PO Q3DAYS PRN 02/12/17 Reported Milk Of Magnesia (Magnesium Hydroxide) 400 Mg/5 Ml Oral.susp 400 Mg PO Q3DAYS PRN 02/12/17 Reported Lorazepam 1 Mg Tablet 1 Tab PO Q12HR PRN 02/12/17 Reported Ibuprofen 400 Mg Tablet 200 Mg PO Q8HRS PRN 02/12/17 Reported Cough Drops (Eucalyptus Oil/Menthol) 7 Mg Lozenge 7 Mg MM Q4HRS PRN 02/12/17 Reported Tylenol (Acetaminophen) 325 Mg Tablet 650 Mg PO Q4HRS PRN 02/12/17 Reported Lovaza ([place]-3 Acid Ethyl Esters) 1 Gm Capsule 1 Cap PO QID 02/12/17 Reported Gabapentin 400 Mg Capsule 400 Mg PO QID 02/12/17 Reported Lorazepam 1 Mg Tablet 1 Tab PO BID 02/12/17 Reported Latuda (Lurasidone Hcl) 60 Mg Tablet 60 Mg PO BID 02/12/17 Reported Advair 100-50 Diskus (Fluticasone/Salmeterol) 1 Each Disk.w.dev 1 Puff IH BID 02/12/17 Reported Acetaminophen 325 Mg Capsule 650 Mg PO BID 02/12/17 Reported Vitamin D (Cholecalciferol (Vitamin D3)) 2,000 Unit Capsule 800 Unit PO DAILY 02/12/17 Reported Comments cxr reviewed 02/27 no INFILTRATES, Impression . 1. Acute respiratory failure, sec to out of hospital arrest 2. Acute toxic/metabolic/ anoxic encephalopathy (pre-dominant) 3. Status post cardiopulmonary arrest. She had asystole. anoxic brain injury 4. Abnormal echocardiogram with ejection fraction of 35%. 5. Hyponatremia, improving 6. Abnormal LFTs secondary to hypoperfusion. 7. Acute renal failure.on HD 8. Shock, combination of cardiogenic,septic/ OFF PRESSOR 9. MRSA bactremia/ sepsis 10. Marked leukocytosis, ?steroids induced vs sepsis vs leukemoid reaction, improving with steroid taper 11. Anemia, s/p Tx, no bleeding 12. DARYA, HD 13. Marked leukocytosis, improved post reducing dose to steroids 14. New Fever 02/27, suspect line related vs ? shingles related, improved Plan . AC mode/ ABG adequate Anemia again today, suspect related to cold agglutinin transfuse PRBC PRN with HD , follow Hb. HD CXR REVIEWD, no new findings NUTRITION VIA TF PROGNOSIS IS POOR FOR MEANINGFUL RECOVERY COURT APPOINTED DPOA NATH TELEPHONE MEETING WITH DR ARAGON TODAY. .Per Guardian, once pedigree researcher signs the order the patient will be DNR with probable transfer to hospice. No PEG or transfusion at this time. ANTIBX PER ID/ follow new BC/ May need lines to be changed off STEROIDS/ WBC TRENDING DOWN D/W RN/RT NEVA FALCON MD Feb 28, 2017 11:06
[2017-02-28] MEDS ORDERED: DIALYSIS PATIENT. MC PRN (11:15)
[2017-02-28] MEDS ORDERED: ALBUMIN HUMAN 25% 200 ML IV PRN (11:15)
[2017-02-28] MEDS: ASPIRIN CHEWABLE 81 MG TABLET. GT SCH (14:37)
[2017-02-28] MEDS: MINERAL OIL/PETROLATUM,WHITE OPHTH OINT 3.5GM TUBE. OU PRN (15:20)
[2017-02-28] MEDS ORDERED: VANCOMYCIN 500 MG in IV NORMAL SALINE 100ML 100 ML IV SCH (16:00)
[2017-02-28] MEDS: fentaNYL PF VIAL 100 MCG/2 ML VIAL IV PRN (20:43)
[2017-02-28] MEDS: MIRTAZAPINE 15 MG TABLET PO SCH (20:45)
[2017-03-01] VITALS (13 sets, daily range): BP systolic 137–160; BP diastolic 70–81
[2017-03-01] MEDS: IV DEXTROSE 5 %-0.2 % NACL 1,000 ML IV SCH (04:40)
[2017-03-01 06:31] LABS: MEAN CORPUSCULAR HEMOGLOBIN 33 pg (25-35); MEAN CORPUSCULAR HGB CONC 35 g/dL (31-37); MEAN CORPUSCULAR VOLUME 95 fL (79-100); NEUT % 86 % (31-73); PLATELET COUNT 134 x10^3/uL (140-400); RED BLOOD COUNT 1.93 x10^6/uL (3.50-5.40); RED CELL DISTRIBUTION WIDTH 18.3 % (11.5-14.5); WHITE BLOOD COUNT 4.4 x10^3/uL (4.0-11.0)
[2017-03-01 06:32] LABS: BASO % 0 % (0-3); EOS % 2 % (0-3); LYMPH # 0.3 x10^3/uL (1.0-4.8); LYMPH % 6 % (24-48); MONO % 6 % (0-9)
[2017-03-01 06:35] LABS: HEMATOCRIT 18.4 % (36.0-47.0); HEMOGLOBIN 6.3 g/dL (12.0-15.5)
[2017-03-01 06:43] LABS: CALCIUM 8.2 mg/dL (8.5-10.1); CREATININE 2.2 mg/dL (0.6-1.0); GFR 28.1
[2017-03-01] MEDS: FAMOTIDINE 20 MG/2 ML VIAL IVP SCH (09:11)
[2017-03-01] MEDS: ASPIRIN CHEWABLE 81 MG TABLET. GT SCH (09:12)
[2017-03-01] MEDS: LURASIDONE 40 MG TABLET. PO SCH (09:15)
--- NOTE | 2017-03-01 10:12 | PDOC ---
PULMONARY PROGRESS NOTES Subjective on vent, does not follow any commands, withdraws to deep pain Vitals Vital Signs Date Time Temp Pulse Resp B/P (MAP) Pulse Ox O2 Delivery O2 Flow Rate FiO2 03/01/17 09:00 100 27 149/77 (101) 100 Ventilator 03/01/17 08:00 35.0 03/01/17 07:00 98.6 98.6 Comments ros, discussed w rn, as mentioned as above other sys otherwise neg Lungs: Other (decrease bs) Cardiovascular: S1, S2 Abdomen: Soft, Non-tender Extremities: Other (1+ edema) Skin: Warm, Dry Labs Laboratory Tests Test 02/27/17 12:15 02/28/17 02:44 02/28/17 05:50 02/28/17 06:10 O2 Saturation 97 % (92-99) Arterial Blood pH 7.43 (7.35-7.45) Arterial Blood pH (Temp corrected) 7.41 Arterial Blood pCO2 at Patient Temp 36 mmHg (35-46) Arterial Blood pCO2 (Temp correct) 38 mmHg Arterial Blood pO2 at Patient Temp 101 mmHg (75-108) Arterial Blood pO2 (Temp corrected) 109 mmHg Arterial Blood HCO3 23 mmol/L (21-28) Arterial Blood Base Excess -1 mmol/L (-3-3) FiO2 40 Glucose (Fingerstick) 101 mg/dL (70-99) 106 mg/dL (70-99) White Blood Count 7.9 x10^3/uL (4.0-11.0) Red Blood Count 1.84 x10^6/uL (3.50-5.40) Hemoglobin 6.1 g/dL (12.0-15.5) Hematocrit 18.2 % (36.0-47.0) Mean Corpuscular Volume 97 fL (79-100) Mean Corpuscular Hemoglobin 33 pg (25-35) Mean Corpuscular Hemoglobin Concent 34 g/dL (31-37) Red Cell Distribution Width 17.7 % (11.5-14.5) Platelet Count 122 x10^3/uL (140-400) Neutrophils (%) (Auto) 93 % (31-73) Lymphocytes (%) (Auto) 3 % (24-48) Monocytes (%) (Auto) 3 % (0-9) Eosinophils (%) (Auto) 1 % (0-3) Basophils (%) (Auto) 1 % (0-3) Neutrophils # (Auto) 7.3 x10^3uL (1.8-7.7) Lymphocytes # (Auto) 0.2 x10^3/uL (1.0-4.8) Monocytes # (Auto) 0.3 x10^3/uL (0.0-1.1) Eosinophils # (Auto) 0.1 x10^3/uL (0.0-0.7) Basophils # (Auto) 0.0 x10^3/uL (0.0-0.2) Sodium Level 135 mmol/L (136-145) Potassium Level 4.4 mmol/L (3.5-5.1) Chloride Level 99 mmol/L (98-107) Carbon Dioxide Level 30 mmol/L (21-32) Anion Gap 6 (6-14) Blood Urea Nitrogen 71 mg/dL (7-20) Creatinine 2.6 mg/dL (0.6-1.0) Estimated GFR (Cockcroft-Gault) 23.2 Glucose Level 109 mg/dL (70-99) Calcium Level 8.2 mg/dL (8.5-10.1) Test 03/01/17 06:15 03/01/17 06:20 White Blood Count 4.4 x10^3/uL (4.0-11.0) Red Blood Count 1.93 x10^6/uL (3.50-5.40) Hemoglobin 6.3 g/dL (12.0-15.5) Hematocrit 18.4 % (36.0-47.0) Mean Corpuscular Volume 95 fL (79-100) Mean Corpuscular Hemoglobin 33 pg (25-35) Mean Corpuscular Hemoglobin Concent 35 g/dL (31-37) Red Cell Distribution Width 18.3 % (11.5-14.5) Platelet Count 134 x10^3/uL (140-400) Neutrophils (%) (Auto) 86 % (31-73) Lymphocytes (%) (Auto) 6 % (24-48) Monocytes (%) (Auto) 6 % (0-9) Eosinophils (%) (Auto) 2 % (0-3) Basophils (%) (Auto) 0 % (0-3) Neutrophils # (Auto) 3.8 x10^3uL (1.8-7.7) Lymphocytes # (Auto) 0.3 x10^3/uL (1.0-4.8) Monocytes # (Auto) 0.2 x10^3/uL (0.0-1.1) Eosinophils # (Auto) 0.1 x10^3/uL (0.0-0.7) Basophils # (Auto) 0.0 x10^3/uL (0.0-0.2) Sodium Level 135 mmol/L (136-145) Potassium Level 4.0 mmol/L (3.5-5.1) Chloride Level 99 mmol/L (98-107) Carbon Dioxide Level 32 mmol/L (21-32) Anion Gap 4 (6-14) Blood Urea Nitrogen 53 mg/dL (7-20) Creatinine 2.2 mg/dL (0.6-1.0) Estimated GFR (Cockcroft-Gault) 28.1 Glucose Level 104 mg/dL (70-99) Calcium Level 8.2 mg/dL (8.5-10.1) Glucose (Fingerstick) 99 mg/dL (70-99) Laboratory Tests Test 03/01/17 06:15 03/01/17 06:20 White Blood Count 4.4 x10^3/uL (4.0-11.0) Red Blood Count 1.93 x10^6/uL (3.50-5.40) Hemoglobin 6.3 g/dL (12.0-15.5) Hematocrit 18.4 % (36.0-47.0) Mean Corpuscular Volume 95 fL (79-100) Mean Corpuscular Hemoglobin 33 pg (25-35) Mean Corpuscular Hemoglobin Concent 35 g/dL (31-37) Red Cell Distribution Width 18.3 % (11.5-14.5) Platelet Count 134 x10^3/uL (140-400) Neutrophils (%) (Auto) 86 % (31-73) Lymphocytes (%) (Auto) 6 % (24-48) Monocytes (%) (Auto) 6 % (0-9) Eosinophils (%) (Auto) 2 % (0-3) Basophils (%) (Auto) 0 % (0-3) Neutrophils # (Auto) 3.8 x10^3uL (1.8-7.7) Lymphocytes # (Auto) 0.3 x10^3/uL (1.0-4.8) Monocytes # (Auto) 0.2 x10^3/uL (0.0-1.1) Eosinophils # (Auto) 0.1 x10^3/uL (0.0-0.7) Basophils # (Auto) 0.0 x10^3/uL (0.0-0.2) Sodium Level 135 mmol/L (136-145) Potassium Level 4.0 mmol/L (3.5-5.1) Chloride Level 99 mmol/L (98-107) Carbon Dioxide Level 32 mmol/L (21-32) Anion Gap 4 (6-14) Blood Urea Nitrogen 53 mg/dL (7-20) Creatinine 2.2 mg/dL (0.6-1.0) Estimated GFR (Cockcroft-Gault) 28.1 Glucose Level 104 mg/dL (70-99) Calcium Level 8.2 mg/dL (8.5-10.1) Glucose (Fingerstick) 99 mg/dL (70-99) Medications Active Scripts Medications Dose Route/Sig Max Daily Dose Days Date Category Latuda (Lurasidone Hcl) 20 Mg Tablet 20 Mg PO AFTRNOON 02/12/17 Reported Remeron (Mirtazapine) 15 Mg Tablet 1 Tab PO QHS 02/12/17 Reported Oxybutynin Chloride Er (Oxybutynin Chloride) 10 Mg Tab.er.24 1 Tab PO DAILY 02/12/17 Reported Multivitamins (Multivitamin) 1 Each Tablet 1 Tab PO DAILY 02/12/17 Reported Latuda (Lurasidone Hcl) 20 Mg Tablet 10 Mg PO AFTRNOON 02/12/17 Reported Lorazepam 0.5 Mg Tablet 1 Tab PO QEVNG 02/12/17 Reported Duoneb 0.5-3(2.5) Mg/3 Ml (Albuterol/Ipratropium) 3 Ml Ampul.neb 3 Ml NEB BID 02/12/17 Reported Duoneb 0.5-3(2.5) Mg/3 Ml (Albuterol/Ipratropium) 3 Ml Ampul.neb 3 Ml NEB Q4H PRN 02/12/17 Reported Calcium Carbonate 500 Mg Tablet 1,000 Mg PO Q4HRS PRN 02/12/17 Reported Nicotine Gum (Nicotine Polacrilex) 4 Mg Gum 4 Mg BC 02/12/17 Reported Milk Of Magnesia (Magnesium Hydroxide) 400 Mg/5 Ml Oral.susp 400 Mg PO Q3DAYS PRN 02/12/17 Reported Milk Of Magnesia (Magnesium Hydroxide) 400 Mg/5 Ml Oral.susp 400 Mg PO Q3DAYS PRN 02/12/17 Reported Lorazepam 1 Mg Tablet 1 Tab PO Q12HR PRN 02/12/17 Reported Ibuprofen 400 Mg Tablet 200 Mg PO Q8HRS PRN 02/12/17 Reported Cough Drops (Eucalyptus Oil/Menthol) 7 Mg Lozenge 7 Mg MM Q4HRS PRN 02/12/17 Reported Tylenol (Acetaminophen) 325 Mg Tablet 650 Mg PO Q4HRS PRN 02/12/17 Reported Lovaza ([place]-3 Acid Ethyl Esters) 1 Gm Capsule 1 Cap PO QID 02/12/17 Reported Gabapentin 400 Mg Capsule 400 Mg PO QID 02/12/17 Reported Lorazepam 1 Mg Tablet 1 Tab PO BID 02/12/17 Reported Latuda (Lurasidone Hcl) 60 Mg Tablet 60 Mg PO BID 02/12/17 Reported Advair 100-50 Diskus (Fluticasone/Salmeterol) 1 Each Disk.w.dev 1 Puff IH BID 02/12/17 Reported Acetaminophen 325 Mg Capsule 650 Mg PO BID 02/12/17 Reported Vitamin D (Cholecalciferol (Vitamin D3)) 2,000 Unit Capsule 800 Unit PO DAILY 02/12/17 Reported Comments cxr reviewed 02/27 no INFILTRATES, Impression . 1. Acute respiratory failure, sec to out of hospital arrest 2. Acute toxic/metabolic/ anoxic encephalopathy (pre-dominant) 3. Status post cardiopulmonary arrest. She had asystole. anoxic brain injury 4. Abnormal echocardiogram with ejection fraction of 35%. 5. Hyponatremia, improving 6. Abnormal LFTs secondary to hypoperfusion. 7. Acute renal failure.on HD 8. Shock, combination of cardiogenic,septic/ OFF PRESSOR 9. MRSA bactremia/ sepsis 10. Marked leukocytosis, ?steroids induced vs sepsis vs leukemoid reaction, improving with steroid taper 11. Anemia, s/p Tx, no bleeding 12. DARYA, HD 13. Marked leukocytosis, improved post reducing dose to steroids 14. New Fever 02/27, suspect line related vs ? shingles related, improved Plan . AC mode/ ABG adequate Anemia again today, suspect related to cold agglutinin CXR REVIEWD, no new findings NUTRITION VIA TF PROGNOSIS IS POOR FOR MEANINGFUL [employer]OVERY COURT APPOINTED DPOA [facility]ATH TELEPHONE MEETING WITH DR ARAGON TODAY. .Per Guardian, once nailhead puncher signed, may withdraw support, nailhead puncher signed the order, will extubate if ok w primary, start morphine Ativan prn to keep the pt comfortable. No PEG or transfusion at this time. ANTIBX PER ID/ follow new BC/ May need lines to be changed off STEROIDS/ WBC TRENDING DOWN D/W RN/RT will sign off but available for any help TULIO GARCIA MD Mar 01, 2017 10:12
--- NOTE | 2017-03-01 10:48 | PDOC ---
Renal-Progress Notes Subjective Notes Notes NONE History of Present Illness Hx of present illness NO CHANGE Vitals Vitals Vital Signs Date Time Temp Pulse Resp B/P (MAP) Pulse Ox O2 Delivery O2 Flow Rate FiO2 03/01/17 10:00 98.8 102 30 159/81 (107) 100 Ventilator 98.8 03/01/17 08:00 35.0 Weight Weight [ ] I.O. Intake and Output Intake and Output 03/02/17 07:00 Intake Total 0 ml Output Total 150 ml Balance -150 ml Tube Feeding 0 ml Output Urine Total 150 ml Labs Labs Laboratory Tests Test 03/01/17 06:15 03/01/17 06:20 White Blood Count 4.4 x10^3/uL (4.0-11.0) Red Blood Count 1.93 x10^6/uL (3.50-5.40) Hemoglobin 6.3 g/dL (12.0-15.5) Hematocrit 18.4 % (36.0-47.0) Mean Corpuscular Volume 95 fL (79-100) Mean Corpuscular Hemoglobin 33 pg (25-35) Mean Corpuscular Hemoglobin Concent 35 g/dL (31-37) Red Cell Distribution Width 18.3 % (11.5-14.5) Platelet Count 134 x10^3/uL (140-400) Neutrophils (%) (Auto) 86 % (31-73) Lymphocytes (%) (Auto) 6 % (24-48) Monocytes (%) (Auto) 6 % (0-9) Eosinophils (%) (Auto) 2 % (0-3) Basophils (%) (Auto) 0 % (0-3) Neutrophils # (Auto) 3.8 x10^3uL (1.8-7.7) Lymphocytes # (Auto) 0.3 x10^3/uL (1.0-4.8) Monocytes # (Auto) 0.2 x10^3/uL (0.0-1.1) Eosinophils # (Auto) 0.1 x10^3/uL (0.0-0.7) Basophils # (Auto) 0.0 x10^3/uL (0.0-0.2) Sodium Level 135 mmol/L (136-145) Potassium Level 4.0 mmol/L (3.5-5.1) Chloride Level 99 mmol/L (98-107) Carbon Dioxide Level 32 mmol/L (21-32) Anion Gap 4 (6-14) Blood Urea Nitrogen 53 mg/dL (7-20) Creatinine 2.2 mg/dL (0.6-1.0) Estimated GFR (Cockcroft-Gault) 28.1 Glucose Level 104 mg/dL (70-99) Calcium Level 8.2 mg/dL (8.5-10.1) Glucose (Fingerstick) 99 mg/dL (70-99) Micro Micro Microbiology 02/27/17 Blood Culture - Preliminary, Resulted NO GROWTH AFTER 2 DAYS 02/12/17 Urine Culture - Final, Complete 02/12/17 Urine Culture Result 1 (ELIZABETH) - Final, Complete Review of Systems Constitutional: yes: no symptom reported Physical Exam General Appearance: no apparent distress Skin: warm Respiratory: decreased breath sounds Heart: S1S2, RRR Abdomen: soft Genitourinary: bladder flat Extremities: pulses present, atrophy Neurology: other (unresponsive) Musculoskeletal: Other (costochondritis) Assessment Assessment IMP DARYA-ANURIA RESP FAILURE S/P CARDIAC ARREST SEPSIS ANOXIC ENCEPHALOPATHY PLAN PLANS FOR WITHDRAWAL OF CARE NOTED WILL SIGN OFF ADRIAN BRIGGS MD Mar 01, 2017 10:48
[2017-03-01] MEDS ORDERED: SCOPOLAMINE 1.5MG PATCH. TD SCH (11:00)
[2017-03-01] MEDS: MORPHINE SULFATE 2 MG/ML DISP.SYRIN. IV PRN ×2 (11:49→22:15)
--- NOTE | 2017-03-01 12:25 | PDOC ---
PROGRESS NOTES Chief Complaint Chief Complaint cardiac arrest, asystole, unknown down time, s/p hypothermia Anoxic encephalopathy, off sedation, no response Normal corrected calcium Oliguric renal OLIGURIC RENAL FAILURE [facility] resident HX schiz by documentation Sepsis with organ failure, needing pressor Thrombocytopenia ANemia, normocytic Hyponatremia Acute precipitous drop hgb plan: court orders faxed today to ICU, approving withholding the lifesaving treatment. dc all active meds, no need labs. extubate pt. ativan, morphine prn. scopolamine patch q3ds. discussed with icu nurse, monalisa to transfer to regular floor for comfort care. History of Present Illness History of Present Illness Pt seen at bedside in the ICU. She remains nonresponsive and on the ventilator. OG tube in place for feeding. Rectal tube in place for bowel movements. Rodriguez catheter in place for urination. Discussed the patient with MOLECULAR TECHNOLOGIST and palliative care RN at bedside. I also spoke with the patients guardian on the phone pertaining to the scheduled court hearing. Vitals Vitals Vital Signs Date Time Temp Pulse Resp B/P (MAP) Pulse Ox O2 Delivery O2 Flow Rate FiO2 03/01/17 12:00 Venturi Mask 03/01/17 11:20 9.0 03/01/17 11:15 100 03/01/17 10:00 98.8 102 30 159/81 (107) 98.8 Physical Exam Physical Exam Eyes are reactive. Patient is breathing via mechanical ventilation. She is not sedated. She does not respond to verbal or physical stimuli. She does sometimes grimace. Per RN, she does open her eyes at times, and attempts to make eye contact. Yellow urine flowing from rodriguez catheter into bedside bag. Rectal tube in place for bowel evacuation. OG tube in place for feeding. Discoloration ( possible bleeding) at nail beds of fingers of left hand. No discoloration on R hand or either extremity. SCDs present. General: Other Heart: Regular rate, Gallops, Other (distant S1/S2) Lungs: Other (decrease bs) Abdomen: Normal bowel sounds, Soft, No tenderness, No hepatosplenomegaly, No masses Extremities: No clubbing, No cyanosis, No edema, Normal pulses, No tenderness/ swelling, Other (Discoloration of nail beds of left hand. Nurse agreed that it appeared to be blood. ) Skin: No breakdown, No significant lesion Labs LABS Laboratory Tests Test 03/01/17 06:15 03/01/17 06:20 White Blood Count 4.4 x10^3/uL (4.0-11.0) Red Blood Count 1.93 x10^6/uL (3.50-5.40) Hemoglobin 6.3 g/dL (12.0-15.5) Hematocrit 18.4 % (36.0-47.0) Mean Corpuscular Volume 95 fL (79-100) Mean Corpuscular Hemoglobin 33 pg (25-35) Mean Corpuscular Hemoglobin Concent 35 g/dL (31-37) Red Cell Distribution Width 18.3 % (11.5-14.5) Platelet Count 134 x10^3/uL (140-400) Neutrophils (%) (Auto) 86 % (31-73) Lymphocytes (%) (Auto) 6 % (24-48) Monocytes (%) (Auto) 6 % (0-9) Eosinophils (%) (Auto) 2 % (0-3) Basophils (%) (Auto) 0 % (0-3) Neutrophils # (Auto) 3.8 x10^3uL (1.8-7.7) Lymphocytes # (Auto) 0.3 x10^3/uL (1.0-4.8) Monocytes # (Auto) 0.2 x10^3/uL (0.0-1.1) Eosinophils # (Auto) 0.1 x10^3/uL (0.0-0.7) Basophils # (Auto) 0.0 x10^3/uL (0.0-0.2) Sodium Level 135 mmol/L (136-145) Potassium Level 4.0 mmol/L (3.5-5.1) Chloride Level 99 mmol/L (98-107) Carbon Dioxide Level 32 mmol/L (21-32) Anion Gap 4 (6-14) Blood Urea Nitrogen 53 mg/dL (7-20) Creatinine 2.2 mg/dL (0.6-1.0) Estimated GFR (Cockcroft-Gault) 28.1 Glucose Level 104 mg/dL (70-99) Calcium Level 8.2 mg/dL (8.5-10.1) Glucose (Fingerstick) 99 mg/dL (70-99) Assessment and Plan Assessmemt and Plan Problems Medical Problems: (1) Cardiac arrest Status: Acute (2) Elevated troponin Status: Acute (3) Hyperkalemia Status: Acute (4) Hypoglycemia Status: Acute (5) Hyponatremia Status: Acute Problems: Comment Review of Relevant I have reviewed the following items reji (where applicable) has been applied. Labs Laboratory Tests Test 02/28/17 02:44 02/28/17 05:50 02/28/17 06:10 03/01/17 06:15 Glucose (Fingerstick) 101 mg/dL (70-99) 106 mg/dL (70-99) White Blood Count 7.9 x10^3/uL (4.0-11.0) 4.4 x10^3/uL (4.0-11.0) Red Blood Count 1.84 x10^6/uL (3.50-5.40) 1.93 x10^6/uL (3.50-5.40) Hemoglobin 6.1 g/dL (12.0-15.5) 6.3 g/dL (12.0-15.5) Hematocrit 18.2 % (36.0-47.0) 18.4 % (36.0-47.0) Mean Corpuscular Volume 97 fL (79-100) 95 fL (79-100) Mean Corpuscular Hemoglobin 33 pg (25-35) 33 pg (25-35) Mean Corpuscular Hemoglobin Concent 34 g/dL (31-37) 35 g/dL (31-37) Red Cell Distribution Width 17.7 % (11.5-14.5) 18.3 % (11.5-14.5) Platelet Count 122 x10^3/uL (140-400) 134 x10^3/uL (140-400) Neutrophils (%) (Auto) 93 % (31-73) 86 % (31-73) Lymphocytes (%) (Auto) 3 % (24-48) 6 % (24-48) Monocytes (%) (Auto) 3 % (0-9) 6 % (0-9) Eosinophils (%) (Auto) 1 % (0-3) 2 % (0-3) Basophils (%) (Auto) 1 % (0-3) 0 % (0-3) Neutrophils # (Auto) 7.3 x10^3uL (1.8-7.7) 3.8 x10^3uL (1.8-7.7) Lymphocytes # (Auto) 0.2 x10^3/uL (1.0-4.8) 0.3 x10^3/uL (1.0-4.8) Monocytes # (Auto) 0.3 x10^3/uL (0.0-1.1) 0.2 x10^3/uL (0.0-1.1) Eosinophils # (Auto) 0.1 x10^3/uL (0.0-0.7) 0.1 x10^3/uL (0.0-0.7) Basophils # (Auto) 0.0 x10^3/uL (0.0-0.2) 0.0 x10^3/uL (0.0-0.2) Sodium Level 135 mmol/L (136-145) 135 mmol/L (136-145) Potassium Level 4.4 mmol/L (3.5-5.1) 4.0 mmol/L (3.5-5.1) Chloride Level 99 mmol/L (98-107) 99 mmol/L (98-107) Carbon Dioxide Level 30 mmol/L (21-32) 32 mmol/L (21-32) Anion Gap 6 (6-14) 4 (6-14) Blood Urea Nitrogen 71 mg/dL (7-20) 53 mg/dL (7-20) Creatinine 2.6 mg/dL (0.6-1.0) 2.2 mg/dL (0.6-1.0) Estimated GFR (Cockcroft-Gault) 23.2 28.1 Glucose Level 109 mg/dL (70-99) 104 mg/dL (70-99) Calcium Level 8.2 mg/dL (8.5-10.1) 8.2 mg/dL (8.5-10.1) Test 03/01/17 06:20 Glucose (Fingerstick) 99 mg/dL (70-99) Laboratory Tests Test 03/01/17 06:15 03/01/17 06:20 White Blood Count 4.4 x10^3/uL (4.0-11.0) Red Blood Count 1.93 x10^6/uL (3.50-5.40) Hemoglobin 6.3 g/dL (12.0-15.5) Hematocrit 18.4 % (36.0-47.0) Mean Corpuscular Volume 95 fL (79-100) Mean Corpuscular Hemoglobin 33 pg (25-35) Mean Corpuscular Hemoglobin Concent 35 g/dL (31-37) Red Cell Distribution Width 18.3 % (11.5-14.5) Platelet Count 134 x10^3/uL (140-400) Neutrophils (%) (Auto) 86 % (31-73) Lymphocytes (%) (Auto) 6 % (24-48) Monocytes (%) (Auto) 6 % (0-9) Eosinophils (%) (Auto) 2 % (0-3) Basophils (%) (Auto) 0 % (0-3) Neutrophils # (Auto) 3.8 x10^3uL (1.8-7.7) Lymphocytes # (Auto) 0.3 x10^3/uL (1.0-4.8) Monocytes # (Auto) 0.2 x10^3/uL (0.0-1.1) Eosinophils # (Auto) 0.1 x10^3/uL (0.0-0.7) Basophils # (Auto) 0.0 x10^3/uL (0.0-0.2) Sodium Level 135 mmol/L (136-145) Potassium Level 4.0 mmol/L (3.5-5.1) Chloride Level 99 mmol/L (98-107) Carbon Dioxide Level 32 mmol/L (21-32) Anion Gap 4 (6-14) Blood Urea Nitrogen 53 mg/dL (7-20) Creatinine 2.2 mg/dL (0.6-1.0) Estimated GFR (Cockcroft-Gault) 28.1 Glucose Level 104 mg/dL (70-99) Calcium Level 8.2 mg/dL (8.5-10.1) Glucose (Fingerstick) 99 mg/dL (70-99) Microbiology 02/27/17 Blood Culture - Preliminary, Resulted NO GROWTH AFTER 2 DAYS 02/12/17 Urine Culture - Final, Complete 02/12/17 Urine Culture Result 1 (ELIZABETH) - Final, Complete Medications Current Medications Calcium Chloride 1,000 mg 1X ONCE IV Last administered on 9/6/17at 15:35; Start 02/12/17 at 16:00; Stop 02/12/17 at 16:35; Status DC Dextrose (Dextrose 50%-Water Syringe) 25 gm 1X ONCE IV Last administered on 15:33; Start 02/12/17 at 16:00; Stop 02/12/17 at 16:35; Status DC Sodium Bicarbonate 50 meq 1X ONCE IV Last administered on 02/12/17 15:35; Start 02/12/17 at 16:00; Stop 02/12/17 at 16:35; Status DC Furosemide (Lasix) 40 mg 1X ONCE IVP Last administered on 02/12/17 16:42; Start 02/12/17 at 16:30; Stop 02/12/17 at 16:35; Status DC Sodium Chloride 1,000 ml @ 1,000 mls/hr Q1H IV Last administered on 02/12/17 15:50; Start 02/12/17 at 16:57; Stop 02/13/17 at 07:23; Status DC Fentanyl Citrate (Fentanyl 2ml Vial) 25 mcg PRN Q30MIN PRN IV SED; Start at 17:00; Stop 02/25/17 at 09:24; Status DC Lorazepam (Ativan) 1 mg PRN Q30MIN PRN IV SEDATION Last administered on 17:21; Start 02/12/17 at 17:00; Stop 03/01/17 at 10:47; Status DC Fentanyl Citrate 30 ml @ 2.5 mls/hr CONT PRN PRN IV IVF Last administered on 03:27; Start 02/12/17 at 17:00; Stop 02/20/17 at 10:36; Status DC Propofol 100 ml @ 0 mls/hr CONT PRN IV SEE I/O RECORD; Start 02/12/17 at 17:00; Stop 02/20/17 at 10:36; Status DC Vecuronium [place] (Norcuron Bolus) DOSE AT 0.1 mg/kg PRN Q30MIN PRN IV SHIVERING Last administered on 02/12/17 19:46; Start 02/12/17 at 17:00; Stop 02/13 at 11:01; Status DC Meperidine HCl (Demerol) 12.5 mg PRN Q30MIN PRN IV SHIVERING; Start 02/12/17 at 17:00; Stop 02/25/17 at 09:24; Status DC Multi-Ingred Cream/Lotion/Oil/ Oint (Artificial Tears Eye Oint) 1 silvestre PRN Q6HRS PRN OU 0.5 INCH FOR DRY EYE Last administered on 02/28/17 15:20; Start at 17:00; Stop 03/01/17 at 10:47; Status DC Famotidine (Pepcid) 20 mg BID IVP Last administered on 02/14/17 10:47; Start at 09:00; Stop 02/14/17 at 16:23; Status DC Aspirin (Aspirin) 300 mg DAILY VT Last administered on 02/27/17 09:17; Start 02/13/17 at 09:00; Stop 02/28/17 at 10:37; Status DC Sodium Chloride (Normal Saline Flush) 3 ml QSHIFT PRN IV AFTER MEDS AND BLOOD DRAWS; Start 02/12/17 at 17:00; Stop 03/01/17 at 10:47; Status DC Acetaminophen (Tylenol) 650 mg Q6HRS NG Last administered on 02/13/17 05:51; Start 02/12/17 at 18:00; Stop 02/13/17 at 17:59; Status DC Acetaminophen (Acetaminophen Supp) 650 mg PRN Q6HRS PRN VT MILD PAIN / TEMP; Start 02/13/17 at 17:00; Stop 03/01/17 at 10:47; Status DC Acetaminophen (Tylenol) 650 mg PRN Q6HRS PRN NG MILD PAIN / TEMP Last administered on 02/23/17 13:02; Start 02/13/17 at 17:00; Stop 03/01/17 at 10:47 ; Status DC Info 1 ea DAILY PRN MC PER PROTOCOL; Start 02/14/17 at 17:00; Stop 03/01/17 at 10:47; Status DC Sodium Chloride 500 ml @ 500 mls/hr 1X ONCE IV Last administered on 02/12/17 16:30; Start 02/12/17 at 17:15; Stop 02/12/17 at 18:14; Status DC Sodium Chloride 500 ml @ 500 mls/hr 1X ONCE IV Last administered on 02/12/17 16:50; Start 02/12/17 at 17:15; Stop 02/12/17 at 18:14; Status DC Sodium Chloride 1,000 ml @ 100 mls/hr Q10H IV Last administered on 02/13/17 06 :36; Start 02/12/17 at 19:00; Stop 02/13/17 at 10:51; Status DC Famotidine (Pepcid) 20 mg 1X ONCE PO Last administered on 02/12/17 19:57; Start 02/12/17 at 17:30; Stop 02/12/17 at 17:34; Status DC Methylprednisolone Sodium Succinate (SOLU-Medrol 40MG VIAL) 100 mg TID IV Last administered on 02/14/17 11:01; Start 02/12/17 at 18:00; Stop 02/14/17 at 12:00; Status DC Sodium Chloride 1,000 ml @ 1,000 mls/hr 1X ONCE IV Last administered on 19:31; Start 02/12/17 at 18:15; Stop 02/12/17 at 19:14; Status DC Piperacillin Sod/ Tazobactam Sod (Zosyn Per Pharmacy) 1 each PRN DAILY PRN MC SEE COMMENTS; Start 02/12/17 at 19:15; Stop 02/18/17 at 07:22; Status DC Vancomycin HCl (Vanco Per Pharmacy) 1 each PRN DAILY PRN MC SEE COMMENTS Last administered on 02/13/17 16:50; Start 02/12/17 at 19:15; Stop 02/14/17 at 07:57; Status DC Piperacillin Sod/ Tazobactam Sod 3.375 gm/Sodium Chloride 50 ml @ 100 mls/hr Q6HRS IV Last administered on 02/15/17 05:58; Start 02/12/17 at 19:30; Stop 02/15 at 09:37; Status DC Vancomycin HCl 1 gm/Sodium Chloride 250 ml @ 250 mls/hr 1X ONCE IV Last administered on 02/12/17 20:00; Start 02/12/17 at 19:30; Stop 02/12/17 at 20:29; Status DC Sodium Bicarbonate 50 meq 1X ONCE IV Last administered on 02/12/17 19:59; Start 02/12/17 at 19:30; Stop 02/12/17 at 19:31; Status DC Norepinephrine Bitartrate 250 ml @ 0 mls/hr CONT PRN IV SEE I/O RECORD Last administered on 02/16/17 07:18; Start 02/12/17 at 19:30; Stop 02/20/17 at 10:36 ; Status DC Norepinephrine Bitartrate 250 ml @ As Directed STK-MED ONCE IV ; Start 02/12/17 at 19:25; Stop 02/12/17 at 19:26; Status DC Vancomycin HCl 750 mg/Sodium Chloride 250 ml @ 250 mls/hr Q24H IV Last administered on 02/13/17 20:34; Start 02/13/17 at 20:00; Stop 02/14/17 at 07:57; Status DC Vancomycin HCl 1 each 1X ONCE MC ; Start 02/14/17 at 19:30; Stop 02/14/17 at 19: 31; Status Cancel Sodium Chloride 1,000 ml @ 1,000 mls/hr 1X ONCE IV Last administered on 05:05; Start 02/13/17 at 04:45; Stop 02/13/17 at 05:44; Status DC Sodium Chloride 1,000 ml @ 1,000 mls/hr 1X ONCE IV Last administered on 05:35; Start 02/13/17 at 05:30; Stop 02/13/17 at 06:29; Status DC Magnesium Sulfate/ Dextrose 50 ml @ 25 mls/hr PRN DAILY PRN IV for Mag < 1.7 on am labs; Start 02/13/17 at 10:45; Stop 03/01/17 at 10:47; Status DC Dextrose/Sodium Chloride 1,000 ml @ 75 mls/hr [id number] IV Last administered on 02/15/17 01:52; Start 02/13/17 at 11:00; Stop 02/15/17 at 08:52; Status DC Vecuronium [place] (Norcuron Bolus) 5 mg PRN Q30MIN PRN IV SHIVERING; Start 02/13/17 at 11:15; Stop 02/25/17 at 09:25; Status DC Lidocaine/Sodium Bicarbonate (Buffered Lidocaine 1%) 3 ml 1X ONCE IJ Last administered on 02/13/17 11:40; Start 02/13/17 at 11:15; Stop 02/13/17 at 11:26; Status DC Heparin Sodium/ Sodium Chloride 60 unit 1X ONCE IV Last administered on 11:40; Start 02/13/17 at 11:15; Stop 02/13/17 at 11:26; Status DC Lidocaine/Sodium Bicarbonate (Buffered Lidocaine 1%) 20 ml STK-MED ONCE IJ ; Start 02/13/17 at 11:22; Stop 02/13/17 at 11:29; Status DC Heparin Sodium (Porcine) (Heparin Sodium) 2,075 unit 1X ONCE IV Last administered on 02/13/17 12:45; Start 02/13/17 at 11:45; Stop 02/13/17 at 11:56; Status DC Heparin Sodium/ Dextrose 500 ml @ 16.5 mls/hr CONT PRN IV SEE I/O RECORD Last administered on 02/13/17 12:47; Start 02/13/17 at 11:45; Stop 02/14/17 at 13:53; Status DC Heparin Sodium (Porcine) (Heparin Sodium) 1,550 unit PRN Q6HRS PRN IV FOR UFH LEVEL LESS THAN 0.2 Last administered on 02/13/17 20:22; Start 02/13/17 at 11:45 ; Stop 02/14/17 at 13:53; Status DC Heparin Sodium (Porcine) (Heparin Sodium) 800 unit PRN Q6HRS PRN IV FOR UFH LEVEL 0.2 - 0.29 Last administered on 02/14/17 02:34; Start 02/13/17 at 11:45; Stop 02/14/17 at 13:53; Status DC Warfarin Sodium (Coumadin Per Pharmacy) 1 each PRN DAILY PRN MC PER PROTOCOL; Start 02/13/17 at 11:45; Status Cancel Info (Anti-Coagulation Monitoring By Pharmacy) 1 each PRN DAILY PRN MC SEE COMMENTS; Start 02/13/17 at 13:00; Stop 02/14/17 at 16:28; Status DC Calcium Chloride 1,000 mg STK-MED ONCE IV ; Start 02/12/17 at 10:00; Stop at 16:27; Status DC Epinephrine HCl (EPINEPHrine SYRINGE) 1 mg STK-MED ONCE .ROUTE ; Start 02/12/17 at 10:00; Stop 02/13/17 at 16:27; Status DC Dextrose (Dextrose 50%-Water Syringe) 25 gm STK-MED ONCE IV ; Start 02/12/17 at 10:00; Stop 02/13/17 at 16:27; Status DC Sodium Bicarbonate 50 meq STK-MED ONCE .ROUTE ; Start 02/12/17 at 10:00; Stop 02/13/17 at 16:27; Status DC Methylprednisolone Sodium Succinate (SOLU-Medrol 125MG VIAL) 100 mg TID IV Last administered on 02/24/17 08:13; Start 02/14/17 at 18:00; Stop 02/24/17 at 11:24; Status DC Norepinephrine Bitartrate 250 ml @ 0 mls/hr CONT PRN IV SEE I/O RECORD; Start 02/14/17 at 15:30; Status Cancel Famotidine (Pepcid) 20 mg DAILY IVP Last administered on 03/01/17 09:11; Start 02/15/17 at 09:00; Stop 03/01/17 at 10:47; Status DC Amino Acids/ Glycerin/ Electrolytes 1,000 ml @ 80 mls/hr [id number] IV Last administered on 02/15/17 09:32; Start 02/15/17 at 08:45; Stop 02/15/17 at 15:14; Status DC Albumin Human 100 ml @ 100 mls/hr 1X ONCE IV Last administered on 02/15/17 09 :30; Start 02/15/17 at 08:45; Stop 02/15/17 at 09:44; Status DC Furosemide (Lasix) 40 mg 1X ONCE IVP ; Start 02/15/17 at 08:45; Stop 02/15/17 at 09:18; Status DC Piperacillin Sod/ Tazobactam Sod 2.25 gm/Sodium Chloride 50 ml @ 100 mls/hr Q6HRS IV Last administered on 02/16/17 05:52; Start 02/15/17 at 12:00; Stop 03/25 at 09:17; Status DC Daptomycin 340 mg/ Sodium Chloride 50 ml @ 100 mls/hr ONCE ONCE IV Last administered on 02/15/17 11:15; Start 02/15/17 at 11:15; Stop 02/15/17 at 11:44; Status DC Dextrose/Sodium Chloride 1,000 ml @ 40 mls/hr Q24H IV Last administered on 04:40; Start 02/15/17 at 15:15; Stop 03/01/17 at 10:47; Status DC Lidocaine/Sodium Bicarbonate (Buffered Lidocaine 1%) 3 ml 1X ONCE IJ Last administered on 02/15/17 16:00; Start 02/15/17 at 15:45; Stop 02/15/17 at 15:46; Status DC Heparin Sodium/ Sodium Chloride 6,000 unit 1X ONCE IV ; Start 02/15/17 at 15:45 ; Stop 02/15/17 at 15:46; Status DC Sodium Chloride 1,000 ml @ 1,000 mls/hr Q1H PRN IV hypotension; Start 02/16/17 at 06:38; Stop 02/16/17 at 12:37; Status DC Info (PHARMACY MONITORING -- do not chart) 1 each PRN DAILY PRN MC SEE COMMENTS ; Start 02/16/17 at 06:45; Stop 02/22/17 at 07:49; Status DC Info (PHARMACY MONITORING -- do not chart) 1 each PRN DAILY PRN MC SEE COMMENTS ; Start 02/16/17 at 06:45; Stop 02/16/17 at 09:19; Status DC Info (PHARMACY MONITORING -- do not chart) 1 each PRN DAILY PRN MC SEE COMMENTS ; Start 02/16/17 at 06:45; Stop 02/16/17 at 09:19; Status DC Albumin Human 100 ml @ 100 mls/hr 1X ONCE IV Last administered on 02/16/17 07:18; Start 02/16/17 at 07:00; Stop 02/16/17 at 07:59; Status DC Piperacillin Sod/ Tazobactam Sod 2.25 gm/Sodium Chloride 50 ml @ 100 mls/hr Q8HRS IV Last administered on 02/18/17 05:55; Start 02/16/17 at 14:00; Stop at 07:22; Status DC Daptomycin 340 mg/ Sodium Chloride 50 ml @ 100 mls/hr QODAY IV Last administered on 02/17/17 12:22; Start 02/17/17 at 09:00; Stop 02/18/17 at 07:22 ; Status DC Sodium Chloride 1,000 ml @ 1,000 mls/hr Q1H PRN IV hypotension; Start 02/17/17 at 08:30; Stop 02/17/17 at 16:00; Status DC Albumin Human 200 ml @ 200 mls/hr 1X PRN PRN IV Hypotension; Start 02/17/17 at 08:30; Stop 02/17/17 at 16:00; Status DC Sodium Chloride 1,000 ml @ 400 mls/hr Q2H30M PRN IV PATENCY; Start 02/17/17 at 08:30; Stop 02/17/17 at 16:00; Status DC Info (PHARMACY MONITORING -- do not chart) 1 each PRN DAILY PRN MC SEE COMMENTS ; Start 02/17/17 at 08:30; Status UNV Info (PHARMACY MONITORING -- do not chart) 1 each PRN DAILY PRN MC SEE COMMENTS ; Start 02/17/17 at 08:30; Status UNV Heparin Sodium (Porcine) (Heparin Sq) 5,000 unit Q8HRS SQ Last administered on 02/22/17 05:49; Start 02/17/17 at 14:00; Stop 02/22/17 at 14:24; Status DC Bisacodyl (Dulcolax Supp) 10 mg PRN DAILY PRN VT CONSTIPATION; Start 02/17/17 at 15:00; Stop 03/01/17 at 10:47; Status DC Polyethylene Glycol (miraLAX PACKET) 17 gm PRN DAILY PRN FT CONSTIPATION; Start 02/17/17 at 15:00; Stop 03/01/17 at 10:47; Status DC Levetiracetam 500 mg/Sodium Chloride 100 ml @ 400 mls/hr Q12HR IV Last administered on 03/01/17 09:17; Start 02/17/17 at 21:00; Stop 03/01/17 at 10:47 ; Status DC Vancomycin HCl (Vanco Per Pharmacy) 1 each PRN DAILY PRN MC SEE COMMENTS Last administered on 02/28/17 09:36; Start 02/18/17 at 07:30; Stop 03/01/17 at 10:47 ; Status DC Vancomycin HCl 1.5 gm/Sodium Chloride 500 ml @ 250 mls/hr 1X ONCE IV Last administered on 02/18/17 14:43; Start 02/18/17 at 14:30; Stop 02/18/17 at 16:29 ; Status DC Vancomycin HCl 1 each 1X ONCE MC Last administered on 02/20/17t 05:00; Start 02/20/17 at 05:00; Stop 02/20/17 at 05:01; Status DC Sodium Chloride 1,000 ml @ 1,000 mls/hr Q1H PRN IV hypotension; Start 02/19/17 at 09:08; Stop 02/19/17 at 15:07; Status DC Albumin Human 200 ml @ 200 mls/hr 1X PRN PRN IV Hypotension; Start 02/19/17 at 09:15; Stop 02/19/17 at 15:14; Status DC Sodium Chloride 1,000 ml @ 400 mls/hr Q2H30M PRN IV PATENCY; Start 02/19/17 at 09:08; Stop 02/19/17 at 21:07; Status DC Info (PHARMACY MONITORING -- do not chart) 1 each PRN DAILY PRN MC SEE COMMENTS ; Start 02/19/17 at 09:15; Stop 02/19/17 at 09:17; Status DC Info (PHARMACY MONITORING -- do not chart) 1 each PRN DAILY PRN MC SEE COMMENTS ; Start 02/19/17 at 09:15; Stop 02/20/17 at 12:35; Status DC Vancomycin HCl 500 mg/Sodium Chloride 100 ml @ 100 mls/hr QMWF IV Last administered on 02/24/17t 16:10; Start 02/21/17 at 16:00; Stop 02/26/17 at 09:11 ; Status DC Sodium Chloride 1,000 ml @ 1,000 mls/hr Q1H PRN IV hypotension; Start 02/21/17 at 08:14; Stop 02/21/17 at 14:13; Status DC Diphenhydramine HCl (Benadryl) 25 mg 1X PRN PRN IV ITCHING; Start 02/21/17 at 08:15; Stop 02/22/17 at 08:14; Status DC Diphenhydramine HCl (Benadryl) 25 mg 1X PRN PRN IV ITCHING; Start 02/21/17 at 08:15; Stop 02/22/17 at 08:14; Status DC Sodium Chloride (Normal Saline Flush) 10 ml 1X PRN PRN IV AP catheter pack; Start 02/21/17 at 08:15; Stop 02/22/17 at 08:14; Status DC Sodium Chloride (Normal Saline Flush) 10 ml 1X PRN PRN IV EXERCISE MANAGER catheter pack; Start 02/21/17 at 08:15; Stop 02/22/17 at 08:14; Status DC Sodium Chloride 1,000 ml @ 400 mls/hr Q2H30M PRN IV PATENCY; Start 02/21/17 at 08:14; Stop 02/21/17 at 20:13; Status DC Info (PHARMACY MONITORING -- do not chart) 1 each PRN DAILY PRN MC SEE COMMENTS ; Start 02/21/17 at 08:15; Stop 02/24/17 at 08:29; Status DC Sodium Chloride 1,000 ml @ 1,000 mls/hr Q1H PRN IV hypotension; Start 02/24/17 at 08:19; Stop 02/24/17 at 14:18; Status DC Albumin Human 200 ml @ 200 mls/hr 1X PRN PRN IV Hypotension Last administered on 02/24/17t 10:12; Start 02/24/17 at 08:30; Stop 02/24/17 at 14:29; Status DC Acetaminophen (Tylenol) 500 mg 1X PRN PRN PO MILD PAIN / TEMP; Start 02/24/17 at 08:30; Stop 02/25/17 at 08:29; Status DC Diphenhydramine HCl (Benadryl) 25 mg 1X PRN PRN IV ITCHING; Start 02/24/17 at 08:30; Stop 02/25/17 at 08:29; Status DC Diphenhydramine HCl (Benadryl) 25 mg 1X PRN PRN IV ITCHING; Start 02/24/17 at 08:30; Stop 02/25/17 at 08:29; Status DC Labetalol HCl (Normodyne) 10 mg PRN Q1HR PRN IVP SBP > 180; Start 02/24/17 at 08:30; Stop 02/25/17 at 08:29; Status DC Info (PHARMACY MONITORING -- do not chart) 1 each PRN DAILY PRN MC SEE COMMENTS ; Start 02/24/17 at 08:30; Stop 03/01/17 at 10:47; Status DC Albumin Human 200 ml @ 100 mls/hr 1X ONCE IV Last administered on 02/24/17 09:51; Start 02/24/17 at 09:45; Stop 02/24/17 at 11:44; Status DC Methylprednisolone Sodium Succinate (SOLU-Medrol 125MG VIAL) 50 mg BID IV Last administered on 02/25/17 08:28; Start 02/24/17 at 21:00; Stop 02/25/17 at 11:12 ; Status DC Fentanyl Citrate (Fentanyl 2ml Vial) 50 mcg 1X ONCE IM ; Start 02/24/17 at 11: 30; Stop 02/24/17 at 11:31; Status Cancel Fentanyl Citrate 30 ml @ 0 mls/hr CONT PRN PRN IV PROTOCOL; Start 02/24/17 at 11:30; Stop 02/24/17 at 16:18; Status DC Fentanyl Citrate (Fentanyl 2ml Vial) 50 mcg 1X ONCE IV Last administered on 12:57; Start 02/24/17 at 13:00; Stop 02/24/17 at 13:01; Status DC Fentanyl Citrate (Fentanyl 2ml Vial) 25 mcg PRN Q4HRS PRN IV PAIN Last administered on 02/28/17 20:43; Start 02/24/17 at 16:30; Stop 03/01/17 at 10:47 ; Status DC Vancomycin HCl 1 each 1X ONCE MC ; Start 02/26/17 at 05:00; Stop 02/26/17 at 05 :01; Status DC Darbepoetin David (Aranesp) 60 mcg [id number] SQ Last administered on 02/25/17 20 :44; Start 02/25/17 at 21:00; Stop 03/01/17 at 10:47; Status DC Methylprednisolone Sodium Succinate (SOLU-Medrol 40MG VIAL) 20 mg BID IV Last administered on 02/26/17 08:50; Start 02/25/17 at 21:00; Stop 02/26/17 at 12:13 ; Status DC Sodium Chloride 1,000 ml @ 1,000 mls/hr Q1H PRN IV hypotension; Start 02/26/17 at 08:15; Stop 02/26/17 at 14:14; Status DC Diphenhydramine HCl (Benadryl) 25 mg 1X PRN PRN IV ITCHING; Start 02/26/17 at 08:15; Stop 02/27/17 at 08:14; Status UNV Diphenhydramine HCl (Benadryl) 25 mg 1X PRN PRN IV ITCHING; Start 02/26/17 at 08:15; Stop 02/27/17 at 08:14; Status DC Sodium Chloride (Normal Saline Flush) 10 ml 1X PRN PRN IV AP catheter pack; Start 02/26/17 at 08:15; Stop 02/27/17 at 08:14; Status DC Sodium Chloride (Normal Saline Flush) 10 ml 1X PRN PRN IV EXERCISE MANAGER catheter pack; Start 02/26/17 at 08:15; Stop 02/27/17 at 08:14; Status DC Sodium Chloride 1,000 ml @ 400 mls/hr Q2H30M PRN IV PATENCY; Start 02/26/17 at 08:15; Stop 02/26/17 at 20:14; Status DC Info (PHARMACY MONITORING -- do not chart) 1 each PRN DAILY PRN MC SEE COMMENTS ; Start 02/26/17 at 08:15; Status UNV Vancomycin HCl 500 mg/Sodium Chloride 100 ml @ 100 mls/hr QMWF IV Last administered on 02/28/17 15:20; Start 02/28/17 at 16:00; Stop 03/01/17 at 10:47 ; Status DC Vancomycin HCl 750 mg/Sodium Chloride 250 ml @ 250 mls/hr 1X ONCE IV Last administered on 02/26/17 15:49; Start 02/26/17 at 16:00; Stop 02/26/17 at 16:59 ; Status DC Methylprednisolone Sodium Succinate (SOLU-Medrol 40MG VIAL) 20 mg QD IV Last administered on 02/27/17 09:15; Start 02/27/17 at 09:00; Stop 02/27/17 at 12:07 ; Status DC Vancomycin HCl 500 mg/Sodium Chloride 100 ml @ 100 mls/hr 1X ONCE IV Last administered on 02/27/17 17:17; Start 02/27/17 at 16:00; Stop 02/27/17 at 16:59 ; Status DC Mirtazapine (Remeron) 15 mg QHS PO Last administered on 02/28/17 20:45; Start 02/27/17 at 21:00; Stop 03/01/17 at 10:47; Status DC Lurasidone HCl (Latuda) 20 mg AFTRNOON PO Last administered on 02/28/17 14:40 ; Start 02/27/17 at 13:00; Stop 03/01/17 at 10:47; Status DC Lurasidone HCl (Latuda) 60 mg BIDWMEALS PO Last administered on 02/28/17 09:18 ; Start 02/27/17 at 17:00; Stop 02/28/17 at 14:17; Status DC Valacyclovir HCl (Valtrex) 500 mg BID PO Last administered on 02/27/17 20:47; Start 02/27/17 at 12:00; Stop 02/28/17 at 08:08; Status DC Sodium Chloride 1,000 ml @ 1,000 mls/hr Q1H PRN IV hypotension; Start 02/27/17 at 13:50; Stop 02/27/17 at 19:49; Status DC Albumin Human 200 ml @ 200 mls/hr 1X ONCE IV Last administered on 02/27/17 14:11; Start 02/27/17 at 14:00; Stop 02/27/17 at 14:59; Status DC Sodium Chloride 1,000 ml @ 400 mls/hr Q2H30M PRN IV PATENCY; Start 02/27/17 at 13:50; Stop 02/28/17 at 01:49; Status DC Info (PHARMACY MONITORING -- do not chart) 1 each PRN DAILY PRN MC SEE COMMENTS ; Start 02/27/17 at 14:00; Status Cancel Aspirin (Children'S Aspirin) 81 mg [id number] GT Last administered on 09:12; Start 02/28/17 at 12:00; Stop 03/01/17 at 10:47; Status DC Sodium Chloride 1,000 ml @ 1,000 mls/hr Q1H PRN IV hypotension; Start 02/28/17 at 11:04; Stop 02/28/17 at 17:03; Status DC Albumin Human 200 ml @ 200 mls/hr 1X PRN PRN IV Hypotension; Start 02/28/17 at 11:15; Stop 02/28/17 at 17:14; Status DC Sodium Chloride 1,000 ml @ 400 mls/hr Q2H30M PRN IV PATENCY; Start 02/28/17 at 11:04; Stop 02/28/17 at 23:03; Status DC Info (PHARMACY MONITORING -- do not chart) 1 each PRN DAILY PRN MC SEE COMMENTS ; Start 02/28/17 at 11:15; Status UNV Lurasidone HCl (Latuda) 60 mg Q12HR PO Last administered on 03/01/17 09:15; Start 02/28/17 at 21:00; Stop 03/01/17 at 10:47; Status DC Morphine Sulfate 2 mg PRN Q1HR PRN IV PAIN Last administered on 03/01/17 11:49 ; Start 03/01/17 at 10:45 Lorazepam (Ativan) 1 mg PRN Q30MIN PRN IV ANXIETY / AGITATION Last administered on 03/01/17 11:48; Start 03/01/17 at 10:45 Scopolamine (Transderm-Scop) 1 patch Q3DAYS TD Last administered on 03/01/17 11:49; Start 03/01/17 at 11:00 Active Scripts Active Reported Latuda (Lurasidone Hcl) 20 Mg Tablet 20 Mg PO AFTRNOON Remeron (Mirtazapine) 15 Mg Tablet 1 Tab PO QHS Oxybutynin Chloride Er (Oxybutynin Chloride) 10 Mg Tab.er.24 1 Tab PO DAILY Multivitamins (Multivitamin) 1 Each Tablet 1 Tab PO DAILY Latuda (Lurasidone Hcl) 20 Mg Tablet 10 Mg PO AFTRNOON Lorazepam 0.5 Mg Tablet 1 Tab PO QEVNG Duoneb 0.5-3(2.5) Mg/3 Ml (Albuterol/Ipratropium) 3 Ml Ampul.neb 3 Ml NEB BID Duoneb 0.5-3(2.5) Mg/3 Ml (Albuterol/Ipratropium) 3 Ml Ampul.neb 3 Ml NEB Q4H PRN Calcium Carbonate 500 Mg Tablet 1,000 Mg PO Q4HRS PRN Nicotine Gum (Nicotine Polacrilex) 4 Mg Gum 4 Mg BC Milk Of Magnesia (Magnesium Hydroxide) 400 Mg/5 Ml Oral.susp 400 Mg PO Q3DAYS PRN Milk Of Magnesia (Magnesium Hydroxide) 400 Mg/5 Ml Oral.susp 400 Mg PO Q3DAYS PRN Lorazepam 1 Mg Tablet 1 Tab PO Q12HR PRN Ibuprofen 400 Mg Tablet 200 Mg PO Q8HRS PRN Cough Drops (Eucalyptus Oil/Menthol) 7 Mg Lozenge 7 Mg MM Q4HRS PRN Tylenol (Acetaminophen) 325 Mg Tablet 650 Mg PO Q4HRS PRN Lovaza ([place]-3 Acid Ethyl Esters) 1 Gm Capsule 1 Cap PO QID Gabapentin 400 Mg Capsule 400 Mg PO QID Lorazepam 1 Mg Tablet 1 Tab PO BID Latuda (Lurasidone Hcl) 60 Mg Tablet 60 Mg PO BID Advair 100-50 Diskus (Fluticasone/Salmeterol) 1 Each Disk.w.dev 1 Puff IH BID Acetaminophen 325 Mg Capsule 650 Mg PO BID Vitamin D (Cholecalciferol (Vitamin D3)) 2,000 Unit Capsule 800 Unit PO DAILY Vitals/I & O Vital Sign - Last 24 Hours 02/28/17 02/28/17 02/28/17 02/28/17 13:00 13:56 14:07 15:00 Pulse 96 113 128 Resp 25 26 30 B/P (MAP) 132/74 (93) 129/64 (85) 162/83 (109) Pulse Ox 100 99 99 95 O2 Delivery Ventilator Ventilator Ventilator Ventilator 02/28/17 02/28/17 02/28/17 02/28/17 15:59 16:00 16:00 17:00 Temp 99.1 99.1 Pulse 104 108 Resp 28 23 B/P (MAP) 133/64 (87) 113/60 (77) Pulse Ox 99 100 100 O2 Delivery Ventilator Mechanical Ventilator Ventilator Ventilator 02/28/17 02/28/17 02/28/17 02/28/17 18:00 19:00 19:50 20:00 Pulse 107 99 Resp 28 28 B/P (MAP) 146/68 (94) 151/72 (98) Pulse Ox 100 100 99 O2 Delivery Ventilator Ventilator Ventilator Mechanical Ventilator 02/28/17 02/28/17 02/28/17 02/28/17 20:00 20:43 21:00 21:13 Temp 100.0 100.0 Pulse 105 94 Resp 28 27 20 18 B/P (MAP) 150/66 (94) 129/66 (87) Pulse Ox 100 99 100 99 O2 Delivery Ventilator Ventilator Ventilator Room Air 02/28/17 02/28/17 02/28/17 02/28/17 21:35 22:00 23:00 23:05 Pulse 108 107 Resp 20 26 B/P (MAP) 154/74 (100) 133/82 (99) Pulse Ox 99 99 99 99 O2 Delivery Ventilator Ventilator Ventilator Ventilator 02/28/17 02/28/17 03/01/17 03/01/17 23:59 23:59 01:00 01:35 Temp 99.3 99.3 Pulse 101 96 Resp 30 22 B/P (MAP) 147/73 (97) 151/73 (99) Pulse Ox 99 99 100 O2 Delivery Ventilator Mechanical Ventilator Ventilator Ventilator 03/01/17 03/01/17 03/01/17 03/01/17 02:00 03:00 03:05 04:00 Temp 98.7 98.7 Pulse 104 97 95 Resp 27 24 24 B/P (MAP) 152/70 (97) 137/70 (92) 145/72 (96) Pulse Ox 100 100 100 99 O2 Delivery Ventilator Ventilator Ventilator Ventilator 03/01/17 03/01/17 03/01/17 03/01/17 04:00 05:00 05:14 06:00 Pulse 93 96 Resp 22 20 B/P (MAP) 145/77 (99) 142/72 (95) Pulse Ox 100 100 100 O2 Delivery Mechanical Ventilator Ventilator Ventilator Ventilator 03/01/17 03/01/17 03/01/17 03/01/17 07:00 07:20 08:00 08:00 Temp 98.6 98.6 Pulse 94 Resp 35 B/P (MAP) 142/75 (97) Pulse Ox 100 100 O2 Delivery Ventilator Ventilator Mechanical Ventilator Mechanical Ventilator O2 Flow Rate 35.0 03/01/17 03/01/17 03/01/17 03/01/17 08:00 08:58 09:00 10:00 Temp 98.8 98.8 Pulse 100 100 102 Resp 27 27 30 B/P (MAP) 150/75 (100) 149/77 (101) 159/81 (107) Pulse Ox 100 100 100 100 O2 Delivery Ventilator Ventilator Ventilator Ventilator 03/01/17 03/01/17 03/01/17 11:15 11:20 12:00 Pulse Ox 100 O2 Delivery Ventilator Venturi Mask Venturi Mask O2 Flow Rate 9.0 Intake and Output 03/01/17 03/01/17 03/02/17 15:00 23:00 07:00 Intake Total 0 ml Output Total 70 ml Balance -70 ml HARIRSON ALEXANDER MD Mar 01, 2017 12:25
[2017-03-01] MEDS ORDERED: ACETAMINOPHEN 325 MG SUPP.RECT. PR PRN (12:30)
[2017-03-02] MEDS: MORPHINE SULFATE 2 MG/ML DISP.SYRIN. IV PRN ×5 (01:30→18:04)
[2017-03-02 07:40] VITALS: BP 108/75
[2017-03-02 07:42] VITALS: BP 125/67
[2017-03-02 12:00] VITALS: BP 125/67
--- NOTE | 2017-03-02 13:19 | PDOC ---
PROGRESS NOTES Chief Complaint Chief Complaint on comfort care, s/p cardiac arrest, asystole, unknown down time, s/p hypothermia Anoxic encephalopathy, off sedation, no response Normal corrected calcium Oliguric renal OLIGURIC RENAL FAILURE [facility] resident HX schiz by documentation Sepsis with organ failure, needing pressor Thrombocytopenia ANemia, normocytic Hyponatremia Acute precipitous drop hgb History of Present Illness History of Present Illness DNR, DNI, on palliative plan - comfort issues only extubated, breathing rapid and shallow, ativan, morphine prn. scopolamine patch q3ds. Vitals Vitals Vital Signs Date Time Temp Pulse Resp B/P (MAP) Pulse Ox O2 Delivery O2 Flow Rate FiO2 03/02/17 13:13 121 80 03/02/17 12:00 98.6 30 125/67 (86) 3.0 98.6 03/02/17 08:00 Nasal Cannula Physical Exam Physical Exam Eyes are reactive. She is not sedated. She does not respond reliably, . She does sometimes grimace. General: Other Heart: Regular rate (tachy 115), Gallops, Other (distant S1/S2) Lungs: Other (decrease bs) Abdomen: Normal bowel sounds, Soft, No tenderness, No hepatosplenomegaly, No masses Extremities: No clubbing, No cyanosis, No edema, Normal pulses, No tenderness/ swelling, Other (Discoloration of nail beds of left hand. Nurse agreed that it appeared to be blood. ) Skin: No breakdown, No significant lesion Assessment and Plan Assessmemt and Plan Problems Medical Problems: (1) Cardiac arrest Status: Acute (2) Elevated troponin Status: Acute (3) Hyperkalemia Status: Acute (4) Hypoglycemia Status: Acute (5) Hyponatremia Status: Acute Problems: Comment Review of Relevant I have reviewed the following items reji (where applicable) has been applied. Labs Laboratory Tests Test 03/01/17 06:15 03/01/17 06:20 White Blood Count 4.4 x10^3/uL (4.0-11.0) Red Blood Count 1.93 x10^6/uL (3.50-5.40) Hemoglobin 6.3 g/dL (12.0-15.5) Hematocrit 18.4 % (36.0-47.0) Mean Corpuscular Volume 95 fL (79-100) Mean Corpuscular Hemoglobin 33 pg (25-35) Mean Corpuscular Hemoglobin Concent 35 g/dL (31-37) Red Cell Distribution Width 18.3 % (11.5-14.5) Platelet Count 134 x10^3/uL (140-400) Neutrophils (%) (Auto) 86 % (31-73) Lymphocytes (%) (Auto) 6 % (24-48) Monocytes (%) (Auto) 6 % (0-9) Eosinophils (%) (Auto) 2 % (0-3) Basophils (%) (Auto) 0 % (0-3) Neutrophils # (Auto) 3.8 x10^3uL (1.8-7.7) Lymphocytes # (Auto) 0.3 x10^3/uL (1.0-4.8) Monocytes # (Auto) 0.2 x10^3/uL (0.0-1.1) Eosinophils # (Auto) 0.1 x10^3/uL (0.0-0.7) Basophils # (Auto) 0.0 x10^3/uL (0.0-0.2) Sodium Level 135 mmol/L (136-145) Potassium Level 4.0 mmol/L (3.5-5.1) Chloride Level 99 mmol/L (98-107) Carbon Dioxide Level 32 mmol/L (21-32) Anion Gap 4 (6-14) Blood Urea Nitrogen 53 mg/dL (7-20) Creatinine 2.2 mg/dL (0.6-1.0) Estimated GFR (Cockcroft-Gault) 28.1 Glucose Level 104 mg/dL (70-99) Calcium Level 8.2 mg/dL (8.5-10.1) Glucose (Fingerstick) 99 mg/dL (70-99) Microbiology 02/27/17 Blood Culture - Preliminary, Resulted NO GROWTH AFTER 3 DAYS 02/12/17 Urine Culture - Final, Complete 02/12/17 Urine Culture Result 1 (ELIZABETH) - Final, Complete Medications Current Medications Calcium Chloride 1,000 mg 1X ONCE IV Last administered on 02/12/17 15:35; Start 02/12/17 at 16:00; Stop 02/12/17 at 16:35; Status DC Dextrose (Dextrose 50%-Water Syringe) 25 gm 1X ONCE IV Last administered on 15:33; Start 02/12/17 at 16:00; Stop 02/12/17 at 16:35; Status DC Sodium Bicarbonate 50 meq 1X ONCE IV Last administered on 02/12/17 15:35; Start 02/12/17 at 16:00; Stop 02/12/17 at 16:35; Status DC Furosemide (Lasix) 40 mg 1X ONCE IVP Last administered on 02/12/17 16:42; Start 02/12/17 at 16:30; Stop 02/12/17 at 16:35; Status DC Sodium Chloride 1,000 ml @ 1,000 mls/hr Q1H IV Last administered on 02/12/17 15:50; Start 02/12/17 at 16:57; Stop 02/13/17 at 07:23; Status DC Fentanyl Citrate (Fentanyl 2ml Vial) 25 mcg PRN Q30MIN PRN IV SED; Start at 17:00; Stop 02/25/17 at 09:24; Status DC Lorazepam (Ativan) 1 mg PRN Q30MIN PRN IV SEDATION Last administered on 17:21; Start 02/12/17 at 17:00; Stop 03/01/17 at 10:47; Status DC Fentanyl Citrate 30 ml @ 2.5 mls/hr CONT PRN PRN IV IVF Last administered on 03:27; Start 02/12/17 at 17:00; Stop 02/20/17 at 10:36; Status DC Propofol 100 ml @ 0 mls/hr CONT PRN IV SEE I/O RECORD; Start 02/12/17 at 17:00; Stop 02/20/17 at 10:36; Status DC Vecuronium Crucible (Norcuron Bolus) DOSE AT 0.1 mg/kg PRN Q30MIN PRN IV SHIVERING Last administered on 02/12/17 19:46; Start 02/12/17 at 17:00; Stop 02/13 at 11:01; Status DC Meperidine HCl (Demerol) 12.5 mg PRN Q30MIN PRN IV SHIVERING; Start 02/12/17 at 17:00; Stop 02/25/17 at 09:24; Status DC Multi-Ingred Cream/Lotion/Oil/ Oint (Artificial Tears Eye Oint) 1 silvestre PRN Q6HRS PRN OU 0.5 INCH FOR DRY EYE Last administered on 02/28/17 15:20; Start at 17:00; Stop 03/01/17 at 10:47; Status DC Famotidine (Pepcid) 20 mg BID IVP Last administered on 02/14/17 10:47; Start at 09:00; Stop 02/14/17 at 16:23; Status DC Aspirin (Aspirin) 300 mg DAILY AR Last administered on 02/27/17 09:17; Start 02/13/17 at 09:00; Stop 02/28/17 at 10:37; Status DC Sodium Chloride (Normal Saline Flush) 3 ml QSHIFT PRN IV AFTER MEDS AND BLOOD DRAWS; Start 02/12/17 at 17:00; Stop 03/01/17 at 10:47; Status DC Acetaminophen (Tylenol) 650 mg Q6HRS NG Last administered on 02/13/17 05:51; Start 02/12/17 at 18:00; Stop 02/13/17 at 17:59; Status DC Acetaminophen (Acetaminophen Supp) 650 mg PRN Q6HRS PRN AR MILD PAIN / TEMP; Start 02/13/17 at 17:00; Stop 03/01/17 at 10:47; Status DC Acetaminophen (Tylenol) 650 mg PRN Q6HRS PRN NG MILD PAIN / TEMP Last administered on 02/23/17 13:02; Start 02/13/17 at 17:00; Stop 03/01/17 at 10:47 ; Status DC Info 1 ea DAILY PRN MC PER PROTOCOL; Start 02/14/17 at 17:00; Stop 03/01/17 at 10:47; Status DC Sodium Chloride 500 ml @ 500 mls/hr 1X ONCE IV Last administered on 02/12/17 16:30; Start 02/12/17 at 17:15; Stop 02/12/17 at 18:14; Status DC Sodium Chloride 500 ml @ 500 mls/hr 1X ONCE IV Last administered on 02/12/17 16:50; Start 02/12/17 at 17:15; Stop 02/12/17 at 18:14; Status DC Sodium Chloride 1,000 ml @ 100 mls/hr Q10H IV Last administered on 02/13/17 06 :36; Start 02/12/17 at 19:00; Stop 02/13/17 at 10:51; Status DC Famotidine (Pepcid) 20 mg 1X ONCE PO Last administered on 02/12/17 19:57; Start 02/12/17 at 17:30; Stop 02/12/17 at 17:34; Status DC Methylprednisolone Sodium Succinate (SOLU-Medrol 40MG VIAL) 100 mg TID IV Last administered on 02/14/17 11:01; Start 02/12/17 at 18:00; Stop 02/14/17 at 12:00; Status DC Sodium Chloride 1,000 ml @ 1,000 mls/hr 1X ONCE IV Last administered on 19:31; Start 02/12/17 at 18:15; Stop 02/12/17 at 19:14; Status DC Piperacillin Sod/ Tazobactam Sod (Zosyn Per Pharmacy) 1 each PRN DAILY PRN MC SEE COMMENTS; Start 02/12/17 at 19:15; Stop 02/18/17 at 07:22; Status DC Vancomycin HCl (Vanco Per Pharmacy) 1 each PRN DAILY PRN MC SEE COMMENTS Last administered on 02/13/17 16:50; Start 02/12/17 at 19:15; Stop 02/14/17 at 07:57; Status DC Piperacillin Sod/ Tazobactam Sod 3.375 gm/Sodium Chloride 50 ml @ 100 mls/hr Q6HRS IV Last administered on 02/15/17 05:58; Start 02/12/17 at 19:30; Stop 02/15 at 09:37; Status DC Vancomycin HCl 1 gm/Sodium Chloride 250 ml @ 250 mls/hr 1X ONCE IV Last administered on 02/12/17 20:00; Start 02/12/17 at 19:30; Stop 02/12/17 at 20:29; Status DC Sodium Bicarbonate 50 meq 1X ONCE IV Last administered on 02/12/17 19:59; Start 02/12/17 at 19:30; Stop 02/12/17 at 19:31; Status DC Norepinephrine Bitartrate 250 ml @ 0 mls/hr CONT PRN IV SEE I/O RECORD Last administered on 02/16/17 07:18; Start 02/12/17 at 19:30; Stop 02/20/17 at 10:36 ; Status DC Norepinephrine Bitartrate 250 ml @ As Directed STK-MED ONCE IV ; Start 02/12/17 at 19:25; Stop 02/12/17 at 19:26; Status DC Vancomycin HCl 750 mg/Sodium Chloride 250 ml @ 250 mls/hr Q24H IV Last administered on 02/13/17 20:34; Start 02/13/17 at 20:00; Stop 02/14/17 at 07:57; Status DC Vancomycin HCl 1 each 1X ONCE MC ; Start 02/14/17 at 19:30; Stop 02/14/17 at 19: 31; Status Cancel Sodium Chloride 1,000 ml @ 1,000 mls/hr 1X ONCE IV Last administered on 05:05; Start 02/13/17 at 04:45; Stop 02/13/17 at 05:44; Status DC Sodium Chloride 1,000 ml @ 1,000 mls/hr 1X ONCE IV Last administered on 05:35; Start 02/13/17 at 05:30; Stop 02/13/17 at 06:29; Status DC Magnesium Sulfate/ Dextrose 50 ml @ 25 mls/hr PRN DAILY PRN IV for Mag < 1.7 on am labs; Start 02/13/17 at 10:45; Stop 03/01/17 at 10:47; Status DC Dextrose/Sodium Chloride 1,000 ml @ 75 mls/hr [id number] IV Last administered on 02/15/17 01:52; Start 02/13/17 at 11:00; Stop 02/15/17 at 08:52; Status DC Vecuronium Crucible (Norcuron Bolus) 5 mg PRN Q30MIN PRN IV SHIVERING; Start 02/13/17 at 11:15; Stop 02/25/17 at 09:25; Status DC Lidocaine/Sodium Bicarbonate (Buffered Lidocaine 1%) 3 ml 1X ONCE IJ Last administered on 02/13/17 11:40; Start 02/13/17 at 11:15; Stop 02/13/17 at 11:26; Status DC Heparin Sodium/ Sodium Chloride 60 unit 1X ONCE IV Last administered on 11:40; Start 02/13/17 at 11:15; Stop 02/13/17 at 11:26; Status DC Lidocaine/Sodium Bicarbonate (Buffered Lidocaine 1%) 20 ml STK-MED ONCE IJ ; Start 02/13/17 at 11:22; Stop 02/13/17 at 11:29; Status DC Heparin Sodium (Porcine) (Heparin Sodium) 2,075 unit 1X ONCE IV Last administered on 02/13/17 12:45; Start 02/13/17 at 11:45; Stop 02/13/17 at 11:56; Status DC Heparin Sodium/ Dextrose 500 ml @ 16.5 mls/hr CONT PRN IV SEE I/O RECORD Last administered on 02/13/17 12:47; Start 02/13/17 at 11:45; Stop 02/14/17 at 13:53; Status DC Heparin Sodium (Porcine) (Heparin Sodium) 1,550 unit PRN Q6HRS PRN IV FOR UFH LEVEL LESS THAN 0.2 Last administered on 02/13/17 20:22; Start 02/13/17 at 11:45 ; Stop 02/14/17 at 13:53; Status DC Heparin Sodium (Porcine) (Heparin Sodium) 800 unit PRN Q6HRS PRN IV FOR UFH LEVEL 0.2 - 0.29 Last administered on 02/14/17 02:34; Start 02/13/17 at 11:45; Stop 02/14/17 at 13:53; Status DC Warfarin Sodium (Coumadin Per Pharmacy) 1 each PRN DAILY PRN MC PER PROTOCOL; Start 02/13/17 at 11:45; Status Cancel Info (Anti-Coagulation Monitoring By Pharmacy) 1 each PRN DAILY PRN MC SEE COMMENTS; Start 02/13/17 at 13:00; Stop 02/14/17 at 16:28; Status DC Calcium Chloride 1,000 mg STK-MED ONCE IV ; Start 02/12/17 at 10:00; Stop at 16:27; Status DC Epinephrine HCl (EPINEPHrine SYRINGE) 1 mg STK-MED ONCE .ROUTE ; Start 02/12/17 at 10:00; Stop 02/13/17 at 16:27; Status DC Dextrose (Dextrose 50%-Water Syringe) 25 gm STK-MED ONCE IV ; Start 02/12/17 at 10:00; Stop 02/13/17 at 16:27; Status DC Sodium Bicarbonate 50 meq STK-MED ONCE .ROUTE ; Start 02/12/17 at 10:00; Stop 02/13/17 at 16:27; Status DC Methylprednisolone Sodium Succinate (SOLU-Medrol 125MG VIAL) 100 mg TID IV Last administered on 02/24/17 08:13; Start 02/14/17 at 18:00; Stop 02/24/17 at 11:24; Status DC Norepinephrine Bitartrate 250 ml @ 0 mls/hr CONT PRN IV SEE I/O RECORD; Start 02/14/17 at 15:30; Status Cancel Famotidine (Pepcid) 20 mg DAILY IVP Last administered on 03/01/17 09:11; Start 02/15/17 at 09:00; Stop 03/01/17 at 10:47; Status DC Amino Acids/ Glycerin/ Electrolytes 1,000 ml @ 80 mls/hr [id number] IV Last administered on 02/15/17 09:32; Start 02/15/17 at 08:45; Stop 02/15/17 at 15:14; Status DC Albumin Human 100 ml @ 100 mls/hr 1X ONCE IV Last administered on 02/15/17 09 :30; Start 02/15/17 at 08:45; Stop 02/15/17 at 09:44; Status DC Furosemide (Lasix) 40 mg 1X ONCE IVP ; Start 02/15/17 at 08:45; Stop 02/15/17 at 09:18; Status DC Piperacillin Sod/ Tazobactam Sod 2.25 gm/Sodium Chloride 50 ml @ 100 mls/hr Q6HRS IV Last administered on 02/16/17 05:52; Start 02/15/17 at 12:00; Stop 03/25 at 09:17; Status DC Daptomycin 340 mg/ Sodium Chloride 50 ml @ 100 mls/hr ONCE ONCE IV Last administered on 02/15/17 11:15; Start 02/15/17 at 11:15; Stop 02/15/17 at 11:44; Status DC Dextrose/Sodium Chloride 1,000 ml @ 40 mls/hr Q24H IV Last administered on 04:40; Start 02/15/17 at 15:15; Stop 03/01/17 at 10:47; Status DC Lidocaine/Sodium Bicarbonate (Buffered Lidocaine 1%) 3 ml 1X ONCE IJ Last administered on 02/15/17 16:00; Start 02/15/17 at 15:45; Stop 02/15/17 at 15:46; Status DC Heparin Sodium/ Sodium Chloride 6,000 unit 1X ONCE IV ; Start 02/15/17 at 15:45 ; Stop 02/15/17 at 15:46; Status DC Sodium Chloride 1,000 ml @ 1,000 mls/hr Q1H PRN IV hypotension; Start 02/16/17 at 06:38; Stop 02/16/17 at 12:37; Status DC Info (PHARMACY MONITORING -- do not chart) 1 each PRN DAILY PRN MC SEE COMMENTS ; Start 02/16/17 at 06:45; Stop 02/22/17 at 07:49; Status DC Info (PHARMACY MONITORING -- do not chart) 1 each PRN DAILY PRN MC SEE COMMENTS ; Start 02/16/17 at 06:45; Stop 02/16/17 at 09:19; Status DC Info (PHARMACY MONITORING -- do not chart) 1 each PRN DAILY PRN MC SEE COMMENTS ; Start 02/16/17 at 06:45; Stop 02/16/17 at 09:19; Status DC Albumin Human 100 ml @ 100 mls/hr 1X ONCE IV Last administered on 02/16/17 07:18; Start 02/16/17 at 07:00; Stop 02/16/17 at 07:59; Status DC Piperacillin Sod/ Tazobactam Sod 2.25 gm/Sodium Chloride 50 ml @ 100 mls/hr Q8HRS IV Last administered on 02/18/17 05:55; Start 02/16/17 at 14:00; Stop at 07:22; Status DC Daptomycin 340 mg/ Sodium Chloride 50 ml @ 100 mls/hr QODAY IV Last administered on 02/17/17 12:22; Start 02/17/17 at 09:00; Stop 02/18/17 at 07:22 ; Status DC Sodium Chloride 1,000 ml @ 1,000 mls/hr Q1H PRN IV hypotension; Start 02/17/17 at 08:30; Stop 02/17/17 at 16:00; Status DC Albumin Human 200 ml @ 200 mls/hr 1X PRN PRN IV Hypotension; Start 02/17/17 at 08:30; Stop 02/17/17 at 16:00; Status DC Sodium Chloride 1,000 ml @ 400 mls/hr Q2H30M PRN IV PATENCY; Start 02/17/17 at 08:30; Stop 02/17/17 at 16:00; Status DC Info (PHARMACY MONITORING -- do not chart) 1 each PRN DAILY PRN MC SEE COMMENTS ; Start 02/17/17 at 08:30; Status UNV Info (PHARMACY MONITORING -- do not chart) 1 each PRN DAILY PRN MC SEE COMMENTS ; Start 02/17/17 at 08:30; Status UNV Heparin Sodium (Porcine) (Heparin Sq) 5,000 unit Q8HRS SQ Last administered on 02/22/17 05:49; Start 02/17/17 at 14:00; Stop 02/22/17 at 14:24; Status DC Bisacodyl (Dulcolax Supp) 10 mg PRN DAILY PRN AR CONSTIPATION; Start 02/17/17 at 15:00; Stop 03/01/17 at 10:47; Status DC Polyethylene Glycol (miraLAX PACKET) 17 gm PRN DAILY PRN FT CONSTIPATION; Start 02/17/17 at 15:00; Stop 03/01/17 at 10:47; Status DC Levetiracetam 500 mg/Sodium Chloride 100 ml @ 400 mls/hr Q12HR IV Last administered on 03/01/17 09:17; Start 02/17/17 at 21:00; Stop 03/01/17 at 10:47 ; Status DC Vancomycin HCl (Vanco Per Pharmacy) 1 each PRN DAILY PRN MC SEE COMMENTS Last administered on 02/28/17 09:36; Start 02/18/17 at 07:30; Stop 03/01/17 at 10:47 ; Status DC Vancomycin HCl 1.5 gm/Sodium Chloride 500 ml @ 250 mls/hr 1X ONCE IV Last administered on 02/18/17 14:43; Start 02/18/17 at 14:30; Stop 02/18/17 at 16:29 ; Status DC Vancomycin HCl 1 each 1X ONCE MC Last administered on 02/20/17 05:00; Start 02/20/17 at 05:00; Stop 02/20/17 at 05:01; Status DC Sodium Chloride 1,000 ml @ 1,000 mls/hr Q1H PRN IV hypotension; Start 02/19/17 at 09:08; Stop 02/19/17 at 15:07; Status DC Albumin Human 200 ml @ 200 mls/hr 1X PRN PRN IV Hypotension; Start 02/19/17 at 09:15; Stop 02/19/17 at 15:14; Status DC Sodium Chloride 1,000 ml @ 400 mls/hr Q2H30M PRN IV PATENCY; Start 02/19/17 at 09:08; Stop 02/19/17 at 21:07; Status DC Info (PHARMACY MONITORING -- do not chart) 1 each PRN DAILY PRN MC SEE COMMENTS ; Start 02/19/17 at 09:15; Stop 02/19/17 at 09:17; Status DC Info (PHARMACY MONITORING -- do not chart) 1 each PRN DAILY PRN MC SEE COMMENTS ; Start 02/19/17 at 09:15; Stop 02/20/17 at 12:35; Status DC Vancomycin HCl 500 mg/Sodium Chloride 100 ml @ 100 mls/hr QMWF IV Last administered on 02/24/17t 16:10; Start 02/21/17 at 16:00; Stop 02/26/17 at 09:11 ; Status DC Sodium Chloride 1,000 ml @ 1,000 mls/hr Q1H PRN IV hypotension; Start 02/21/17 at 08:14; Stop 02/21/17 at 14:13; Status DC Diphenhydramine HCl (Benadryl) 25 mg 1X PRN PRN IV ITCHING; Start 02/21/17 at 08:15; Stop 02/22/17 at 08:14; Status DC Diphenhydramine HCl (Benadryl) 25 mg 1X PRN PRN IV ITCHING; Start 02/21/17 at 08:15; Stop 02/22/17 at 08:14; Status DC Sodium Chloride (Normal Saline Flush) 10 ml 1X PRN PRN IV AP catheter pack; Start 02/21/17 at 08:15; Stop 02/22/17 at 08:14; Status DC Sodium Chloride (Normal Saline Flush) 10 ml 1X PRN PRN IV CHUMMER catheter pack; Start 02/21/17 at 08:15; Stop 02/22/17 at 08:14; Status DC Sodium Chloride 1,000 ml @ 400 mls/hr Q2H30M PRN IV PATENCY; Start 02/21/17 at 08:14; Stop 02/21/17 at 20:13; Status DC Info (PHARMACY MONITORING -- do not chart) 1 each PRN DAILY PRN MC SEE COMMENTS ; Start 02/21/17 at 08:15; Stop 02/24/17 at 08:29; Status DC Sodium Chloride 1,000 ml @ 1,000 mls/hr Q1H PRN IV hypotension; Start 02/24/17 at 08:19; Stop 02/24/17 at 14:18; Status DC Albumin Human 200 ml @ 200 mls/hr 1X PRN PRN IV Hypotension Last administered on 02/24/17t 10:12; Start 02/24/17 at 08:30; Stop 02/24/17 at 14:29; Status DC Acetaminophen (Tylenol) 500 mg 1X PRN PRN PO MILD PAIN / TEMP; Start 02/24/17 at 08:30; Stop 02/25/17 at 08:29; Status DC Diphenhydramine HCl (Benadryl) 25 mg 1X PRN PRN IV ITCHING; Start 02/24/17 at 08:30; Stop 02/25/17 at 08:29; Status DC Diphenhydramine HCl (Benadryl) 25 mg 1X PRN PRN IV ITCHING; Start 02/24/17 at 08:30; Stop 02/25/17 at 08:29; Status DC Labetalol HCl (Normodyne) 10 mg PRN Q1HR PRN IVP SBP > 180; Start 02/24/17 at 08:30; Stop 02/25/17 at 08:29; Status DC Info (PHARMACY MONITORING -- do not chart) 1 each PRN DAILY PRN MC SEE COMMENTS ; Start 02/24/17 at 08:30; Stop 03/01/17 at 10:47; Status DC Albumin Human 200 ml @ 100 mls/hr 1X ONCE IV Last administered on 02/24/17t 09:51; Start 02/24/17 at 09:45; Stop 02/24/17 at 11:44; Status DC Methylprednisolone Sodium Succinate (SOLU-Medrol 125MG VIAL) 50 mg BID IV Last administered on 02/25/17 08:28; Start 02/24/17 at 21:00; Stop 02/25/17 at 11:12 ; Status DC Fentanyl Citrate (Fentanyl 2ml Vial) 50 mcg 1X ONCE IM ; Start 02/24/17 at 11: 30; Stop 02/24/17 at 11:31; Status Cancel Fentanyl Citrate 30 ml @ 0 mls/hr CONT PRN PRN IV PROTOCOL; Start 02/24/17 at 11:30; Stop 02/24/17 at 16:18; Status DC Fentanyl Citrate (Fentanyl 2ml Vial) 50 mcg 1X ONCE IV Last administered on 12:57; Start 02/24/17 at 13:00; Stop 02/24/17 at 13:01; Status DC Fentanyl Citrate (Fentanyl 2ml Vial) 25 mcg PRN Q4HRS PRN IV PAIN Last administered on 02/28/17 20:43; Start 02/24/17 at 16:30; Stop 03/01/17 at 10:47 ; Status DC Vancomycin HCl 1 each 1X ONCE MC ; Start 02/26/17 at 05:00; Stop 02/26/17 at 05 :01; Status DC Darbepoetin David (Aranesp) 60 mcg [id number] SQ Last administered on 02/25/17 20 :44; Start 02/25/17 at 21:00; Stop 03/01/17 at 10:47; Status DC Methylprednisolone Sodium Succinate (SOLU-Medrol 40MG VIAL) 20 mg BID IV Last administered on 02/26/17 08:50; Start 02/25/17 at 21:00; Stop 02/26/17 at 12:13 ; Status DC Sodium Chloride 1,000 ml @ 1,000 mls/hr Q1H PRN IV hypotension; Start 02/26/17 at 08:15; Stop 02/26/17 at 14:14; Status DC Diphenhydramine HCl (Benadryl) 25 mg 1X PRN PRN IV ITCHING; Start 02/26/17 at 08:15; Stop 02/27/17 at 08:14; Status UNV Diphenhydramine HCl (Benadryl) 25 mg 1X PRN PRN IV ITCHING; Start 02/26/17 at 08:15; Stop 02/27/17 at 08:14; Status DC Sodium Chloride (Normal Saline Flush) 10 ml 1X PRN PRN IV AP catheter pack; Start 02/26/17 at 08:15; Stop 02/27/17 at 08:14; Status DC Sodium Chloride (Normal Saline Flush) 10 ml 1X PRN PRN IV CHUMMER catheter pack; Start 02/26/17 at 08:15; Stop 02/27/17 at 08:14; Status DC Sodium Chloride 1,000 ml @ 400 mls/hr Q2H30M PRN IV PATENCY; Start 02/26/17 at 08:15; Stop 02/26/17 at 20:14; Status DC Info (PHARMACY MONITORING -- do not chart) 1 each PRN DAILY PRN MC SEE COMMENTS ; Start 02/26/17 at 08:15; Status UNV Vancomycin HCl 500 mg/Sodium Chloride 100 ml @ 100 mls/hr QMWF IV Last administered on 02/28/17 15:20; Start 02/28/17 at 16:00; Stop 03/01/17 at 10:47 ; Status DC Vancomycin HCl 750 mg/Sodium Chloride 250 ml @ 250 mls/hr 1X ONCE IV Last administered on 02/26/17 15:49; Start 02/26/17 at 16:00; Stop 02/26/17 at 16:59 ; Status DC Methylprednisolone Sodium Succinate (SOLU-Medrol 40MG VIAL) 20 mg QD IV Last administered on 02/27/17 09:15; Start 02/27/17 at 09:00; Stop 02/27/17 at 12:07 ; Status DC Vancomycin HCl 500 mg/Sodium Chloride 100 ml @ 100 mls/hr 1X ONCE IV Last administered on 02/27/17 17:17; Start 02/27/17 at 16:00; Stop 02/27/17 at 16:59 ; Status DC Mirtazapine (Remeron) 15 mg QHS PO Last administered on 02/28/17 20:45; Start 02/27/17 at 21:00; Stop 03/01/17 at 10:47; Status DC Lurasidone HCl (Latuda) 20 mg AFTRNOON PO Last administered on 02/28/17 14:40 ; Start 02/27/17 at 13:00; Stop 03/01/17 at 10:47; Status DC Lurasidone HCl (Latuda) 60 mg BIDWMEALS PO Last administered on 02/28/17 09:18 ; Start 02/27/17 at 17:00; Stop 02/28/17 at 14:17; Status DC Valacyclovir HCl (Valtrex) 500 mg BID PO Last administered on 02/27/17 20:47; Start 02/27/17 at 12:00; Stop 02/28/17 at 08:08; Status DC Sodium Chloride 1,000 ml @ 1,000 mls/hr Q1H PRN IV hypotension; Start 02/27/17 at 13:50; Stop 02/27/17 at 19:49; Status DC Albumin Human 200 ml @ 200 mls/hr 1X ONCE IV Last administered on 02/27/17 14:11; Start 02/27/17 at 14:00; Stop 02/27/17 at 14:59; Status DC Sodium Chloride 1,000 ml @ 400 mls/hr Q2H30M PRN IV PATENCY; Start 02/27/17 at 13:50; Stop 02/28/17 at 01:49; Status DC Info (PHARMACY MONITORING -- do not chart) 1 each PRN DAILY PRN MC SEE COMMENTS ; Start 02/27/17 at 14:00; Status Cancel Aspirin (Children'S Aspirin) 81 mg [id number] GT Last administered on 09:12; Start 02/28/17 at 12:00; Stop 03/01/17 at 10:47; Status DC Sodium Chloride 1,000 ml @ 1,000 mls/hr Q1H PRN IV hypotension; Start 02/28/17 at 11:04; Stop 02/28/17 at 17:03; Status DC Albumin Human 200 ml @ 200 mls/hr 1X PRN PRN IV Hypotension; Start 02/28/17 at 11:15; Stop 02/28/17 at 17:14; Status DC Sodium Chloride 1,000 ml @ 400 mls/hr Q2H30M PRN IV PATENCY; Start 02/28/17 at 11:04; Stop 02/28/17 at 23:03; Status DC Info (PHARMACY MONITORING -- do not chart) 1 each PRN DAILY PRN MC SEE COMMENTS ; Start 02/28/17 at 11:15; Status UNV Lurasidone HCl (Latuda) 60 mg Q12HR PO Last administered on 03/01/17 09:15; Start 02/28/17 at 21:00; Stop 03/01/17 at 10:47; Status DC Morphine Sulfate 2 mg PRN Q1HR PRN IV PAIN Last administered on 03/02/17 12:34 ; Start 03/01/17 at 10:45 Lorazepam (Ativan) 1 mg PRN Q30MIN PRN IV ANXIETY / AGITATION Last administered on 03/02/17 12:35; Start 03/01/17 at 10:45 Scopolamine (Transderm-Scop) 1 patch Q3DAYS TD Last administered on 03/01/17 11:49; Start 03/01/17 at 11:00 Acetaminophen (Tylenol) 325 mg PRN Q6HRS PRN AR MILD PAIN / TEMP; Start at 12:30 Active Scripts Active Reported Latuda (Lurasidone Hcl) 20 Mg Tablet 20 Mg PO AFTRNOON Remeron (Mirtazapine) 15 Mg Tablet 1 Tab PO QHS Oxybutynin Chloride Er (Oxybutynin Chloride) 10 Mg Tab.er.24 1 Tab PO DAILY Multivitamins (Multivitamin) 1 Each Tablet 1 Tab PO DAILY Latuda (Lurasidone Hcl) 20 Mg Tablet 10 Mg PO AFTRNOON Lorazepam 0.5 Mg Tablet 1 Tab PO QEVNG Duoneb 0.5-3(2.5) Mg/3 Ml (Albuterol/Ipratropium) 3 Ml Ampul.neb 3 Ml NEB BID Duoneb 0.5-3(2.5) Mg/3 Ml (Albuterol/Ipratropium) 3 Ml Ampul.neb 3 Ml NEB Q4H PRN Calcium Carbonate 500 Mg Tablet 1,000 Mg PO Q4HRS PRN Nicotine Gum (Nicotine Polacrilex) 4 Mg Gum 4 Mg BC Milk Of Magnesia (Magnesium Hydroxide) 400 Mg/5 Ml Oral.susp 400 Mg PO Q3DAYS PRN Milk Of Magnesia (Magnesium Hydroxide) 400 Mg/5 Ml Oral.susp 400 Mg PO Q3DAYS PRN Lorazepam 1 Mg Tablet 1 Tab PO Q12HR PRN Ibuprofen 400 Mg Tablet 200 Mg PO Q8HRS PRN Cough Drops (Eucalyptus Oil/Menthol) 7 Mg Lozenge 7 Mg MM Q4HRS PRN Tylenol (Acetaminophen) 325 Mg Tablet 650 Mg PO Q4HRS PRN Lovaza ([place]-3 Acid Ethyl Esters) 1 Gm Capsule 1 Cap PO QID Gabapentin 400 Mg Capsule 400 Mg PO QID Lorazepam 1 Mg Tablet 1 Tab PO BID Latuda (Lurasidone Hcl) 60 Mg Tablet 60 Mg PO BID Advair 100-50 Diskus (Fluticasone/Salmeterol) 1 Each Disk.w.dev 1 Puff IH BID Acetaminophen 325 Mg Capsule 650 Mg PO BID Vitamin D (Cholecalciferol (Vitamin D3)) 2,000 Unit Capsule 800 Unit PO DAILY Vitals/I & O Vital Sign - Last 24 Hours 03/01/17 03/01/17 03/01/17 03/01/17 16:00 20:00 20:54 22:15 Temp 99.0 98.3 99.0 98.3 Pulse 85 90 Resp 24 B/P (MAP) 144/75 (98) 160/79 (106) Pulse Ox 98 98 98 O2 Delivery Nasal Cannula Venturi Mask Nasal Cannula Venturi Mask O2 Flow Rate 3.0 4.0 3.0 3.0 03/02/17 03/02/17 03/02/17 03/02/17 00:06 01:30 02:19 02:45 Resp 24 34 27 Pulse Ox 77 3 67 O2 Delivery Nasal Cannula Nasal Cannula Nasal Cannula O2 Flow Rate 4.0 5.0 5.0 03/02/17 03/02/17 03/02/17 03/02/17 04:04 05:16 07:40 07:42 Temp 97.5 98.6 97.5 98.6 Pulse 92 103 Resp 24 22 30 B/P (MAP) 108/75 (86) 125/67 (86) Pulse Ox 85 76 98 98 O2 Delivery Nasal Cannula Nasal Cannula Nasal Cannula O2 Flow Rate 5.0 4.0 3.0 3.0 03/02/17 03/02/17 03/02/17 08:00 12:00 13:13 Temp 98.6 98.6 Pulse 103 121 Resp 30 B/P (MAP) 125/67 (86) Pulse Ox 98 80 O2 Delivery Nasal Cannula O2 Flow Rate 4.0 3.0 MARIA C STRICKLAND MD Mar 02, 2017 13:19
--- NOTE | 2017-03-02 13:36 | PDOC ---
Provider Note Provider Note On comfort measures, will sign off SIVA GARCIA MD Mar 02, 2017 13:36
--- NOTE | 2017-03-03 10:37 | PDOC3 ---
Discharge Summary Visit Information Date of Admission: Feb 12, 2017 Date of Discharge: Mar 02, 2017 Admitting Diagnosis: cardiac arrest Final Diagnosis s/p cardiac arrest, asystole, unknown down time, s/p hypothermia Anoxic encephalopathy, off sedation, no response Normal corrected calcium Oliguric renal OLIGURIC RENAL FAILURE [facility] resident HX schiz by documentation Sepsis with organ failure, needing pressor Thrombocytopenia ANemia, normocytic Hyponatremia Acute precipitous drop hgb Problems Medical Problems: (1) Cardiac arrest Status: Acute (2) Elevated troponin Status: Acute (3) Hyperkalemia Status: Acute (4) Hypoglycemia Status: Acute (5) Hyponatremia Status: Acute Brief Hospital Course Allergies Allergies Coded Allergies Type Severity Reaction Last Updated Verified divalproex sodium Allergy Intermediate Unknown 02/12/17 Yes I S O L A T I O N *CONTACT* Allergy Unknown 02/14/17 Yes Vital Signs Vital Signs Date Time Temp Pulse Resp B/P (MAP) Pulse Ox O2 Delivery O2 Flow Rate FiO2 03/02/17 16:14 121 30 72 3.0 03/02/17 12:00 98.6 125/67 (86) 98.6 03/02/17 08:00 Nasal Cannula Brief Hospital Course Ms. Jin is a 56 old found down at her senior living Patient admitted 02/12/2017 post cardiac arrest at [facility]. Unknown time down. Multiple rounds of resuscitation successfully treated cardiac arrest; hypothermia protocol--rewarming competed; elevated Troponin; Hypoglycemia; Hyponatremia, Decreased urine output. hypotensive. Respiratory Failure--On Vent; Heparin gtt; Levophed gtt; Fentanyl gtt, Versed gtt. FULL code initial, Ethics consulted, [facility] was petitioned for permission to withdraw care , prognosis poor from all evals made DNR, DNI, on palliative plan - comfort issues only extubated, to floor 03/01 she 03/02 at 6:55 pm Discharge Information Condition at Discharge: / Disposition/Orders: Scheduled Acetaminophen (Acetaminophen), 650 MG PO BID, (Reported) Cholecalciferol (Vitamin D3) (Vitamin D), 800 UNIT PO DAILY, (Reported) Fluticasone/Salmeterol (Advair 100-50 Diskus), 1 PUFF IH BID, (Reported) Gabapentin (Gabapentin), 400 MG PO QID, (Reported) Ipratropium/Albuterol Sulfate (Duoneb 0.5-3(2.5) Mg/3 Ml), 3 ML NEB BID, ( Reported) Lorazepam (Lorazepam), 1 TAB PO BID, (Reported) Lorazepam (Lorazepam), 1 TAB PO QEVNG, (Reported) Lurasidone Hcl (Latuda), 60 MG PO BID, (Reported) Lurasidone Hcl (Latuda), 10 MG PO AFTRNOON, (Reported) Lurasidone Hcl (Latuda), 20 MG PO AFTRNOON, (Reported) Mirtazapine (Remeron), 1 TAB PO QHS, (Reported) Multivitamin (Multivitamins), 1 TAB PO DAILY, (Reported) [place]-3 Acid Ethyl Esters (Lovaza), 1 CAP PO QID, (Reported) Oxybutynin Chloride (Oxybutynin Chloride Er), 1 TAB PO DAILY, (Reported) Scheduled PRN Acetaminophen (Tylenol), 650 MG PO Q4HRS PRN for MILD PAIN / TEMP, (Reported) Calcium Carbonate (Calcium Carbonate), 1,000 MG PO Q4HRS PRN for HEARTBURN / GAS , (Reported) Eucalyptus Oil/Menthol (Cough Drops), 7 MG MM Q4HRS PRN for COUGH, (Reported) Ibuprofen (Ibuprofen), 200 MG PO Q8HRS PRN for PAIN, (Reported) Ipratropium/Albuterol Sulfate (Duoneb 0.5-3(2.5) Mg/3 Ml), 3 ML NEB Q4H PRN for SHORTNESS OF BREATH, (Reported) Lorazepam (Lorazepam), 1 TAB PO Q12HR PRN for ANXIETY / AGITATION, (Reported) Magnesium Hydroxide (Milk Of Magnesia), 400 MG PO Q3DAYS PRN for CONSTIPATION, ( Reported) Magnesium Hydroxide (Milk Of Magnesia), 400 MG PO Q3DAYS PRN for CONSTIPATION, ( Reported) Miscellaneous Medications Nicotine Polacrilex (Nicotine Gum), 4 MG BC, (Reported) Patient Instructions Patient Instructions > 30min MARIA C STRICKLAND MD Mar 03, 2017 10:37
== END 2017-03-02 20:26 | disposition expired | DRG 870 ==
LOC: ER 15:17 → 1 WEST ICU 16:44 → 6 SOUTH 03-01 19:40
PROVIDERS: ADMIT Internal Medicine; ATTEND Internal Medicine
PROC: 0BH17EZ Insertion of Endotracheal Airway into Trachea, Via Natural or Artificial Opening (ICD-10-PCS; 2017-02-12)
PROC: 5A1955Z Respiratory Ventilation, Greater than 96 Consecutive Hours (ICD-10-PCS; 2017-02-12)
PROC: 02HV33Z Insertion of Infusion Device into Superior Vena Cava, Percutaneous Approach (ICD-10-PCS; 2017-02-13)
PROC: B548ZZA Ultrasonography of Superior Vena Cava, Guidance (ICD-10-PCS; 2017-02-13)
PROC: B544ZZA Ultrasonography of Left Jugular Veins, Guidance (ICD-10-PCS; principal; 2017-02-17)
PROC: 5A1D60Z (ICD-10-PCS; 2017-02-17)
PROC: 02HV33Z Insertion of Infusion Device into Superior Vena Cava, Percutaneous Approach (ICD-10-PCS; 2017-02-17)
PROC: 30233N1 Transfusion of Nonautologous Red Blood Cells into Peripheral Vein, Percutaneous Approach (ICD-10-PCS; 2017-02-19)
DX: A41.01 Sepsis due to Methicillin susceptible Staphylococcus aureus (principal); I21.4 Non-ST elevation (NSTEMI) myocardial infarction; J96.21 Acute and chronic respiratory failure with hypoxia; K72.00 Acute and subacute hepatic failure without coma; N17.0 Acute kidney failure with tubular necrosis; G92 Toxic encephalopathy; R65.21 Severe sepsis with septic shock; R18.8 Other ascites; J96.22 Acute and chronic respiratory failure with hypercapnia; G93.1 Anoxic brain damage, not elsewhere classified; E44.1 Mild protein-calorie malnutrition; E87.4 Mixed disorder of acid-base balance; E87.1 Hypo-osmolality and hyponatremia; F20.0 Paranoid schizophrenia; I50.1 Left ventricular failure, unspecified; J44.1 Chronic obstructive pulmonary disease with (acute) exacerbation; R40.3 Persistent vegetative state; D69.6 Thrombocytopenia, unspecified; D64.9 Anemia, unspecified; E16.2 Hypoglycemia, unspecified; Z68.24 Body mass index [BMI] 24.0-24.9, adult; E78.5 Hyperlipidemia, unspecified; E83.51 Hypocalcemia; E87.5 Hyperkalemia; G89.4 Chronic pain syndrome; F32.9 Major depressive disorder, single episode, unspecified; K59.00 Constipation, unspecified; R06.4 Hyperventilation; R74.0 Nonspecific elevation of levels of transaminase and lactic acid dehydrogenase [LDH]; R79.89 Other specified abnormal findings of blood chemistry; R93.1 Abnormal findings on diagnostic imaging of heart and coronary circulation; I11.0 Hypertensive heart disease with heart failure; Z51.5 Encounter for palliative care; Z96.1 Presence of intraocular lens; Z66 Do not resuscitate; Z79.899 Other long term (current) drug therapy; Z87.891 Personal history of nicotine dependence; Z99.2 Dependence on renal dialysis; Z87.440 Personal history of urinary (tract) infections; Z98.49 Cataract extraction status, unspecified eye
CPT/HCPCS: 36415; 36556; 36600; 51702; 70450; 71010; 74000; 76770; 76937; 80048; 80053; 80069; 80076; 80202; 80307; 81001; 82533; 82550; 82805; 82962; 83605; 83615; 83690; 83735; 83880; 84100; 84145; 84295; 84300; 84443; 84484; 85007; 85018; 85025; 85027; 85384; 85520; 85610; 85730; 86706; 86850; 86900; 86901; 86920; 87040; 87086; 87205; 87324; 87340; 87341; 87641; 93005; 93306; 93970; 94002; 94003; 95816; 96374; 96375; C1892; J0171; J0878; J0881; J1644; J1940; J1953; J2060; J2250; J2270; J2543; J2920; J2930; J3010; J3370; J3490; J7030; J7040; J7042; J7050; P9016; P9046; S0028; 99291-25; G0479